=== PATIENT | female | born 1985 | race Caucasian/White ===

== ENCOUNTER 2024-02-12 07:43 | Outpatient (OUT) | payer OTHER, SELFPAY ==
--- NOTE | 2024-02-12 | ECG_ITS ---
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
[2024-02-12 08:15] LABS: Basophils Percent Auto 0.6 % (0.2-2.0); Eosinophils Absolute Auto 0.2 10^3/uL (0.0-0.7); Eosinophils Percent Auto 3.6 % (0.9-7.0); Hematocrit 33.3 % (36.0-48.0); Hemoglobin 11.3 g/dL (12.0-16.0); Immature Granulocytes Abs Auto 0.02 10^3/uL (0.00-0.03); Immature Granulocytes Pct Auto 0.4 % (0.0-0.5); Lymphocytes Absolute Auto 1.4 10^3/uL (1.2-3.8); Lymphocytes Percent Auto 27.5 % (20.5-60.0); Mean Corpuscular HGB Conc 33.9 g/dL (29.9-35.2); Mean Corpuscular Hemoglobin 28.8 pg (26.7-34.0); Mean Corpuscular Volume 84.9 fL (81.0-99.0); Mean Platelet Volume 8.9 fL (9.5-13.5); Monocytes Absolute Auto 0.5 10^3/uL (0.3-0.8); Monocytes Percent Auto 9.1 % (1.7-12.0); Neutrophils Percent Auto 58.8 % (43.0-75.0); Platelet Count 221 10^3/uL (150-450); Red Blood Count 3.92 10^6/uL (4.20-5.40); Red Cell Distribution Width 12.5 % (11.0-15.0); White Blood Count 5.1 10^3/uL (4.0-11.0)
--- NOTE | 2024-02-12 08:25 | US_ITS ---
The [address] [address] Patient Name: MARY THOMPSON MRN: [id number] date: 1985 Sex: F Assigned Patient Location: LAB Current Patient Location: Accession/Order Number: [id number] Exam Date: 02/12/2024 08:40 Report Date: 02/13/2024 05:09 At the request of: NON-STAFF PHYSICIAN Procedure: US extremity nonvascular LT EXAMINATION: US extremity nonvascular LT HISTORY: Soft Tissue Lesion M79.9 COMPARISON: No relevant comparison available. FINDINGS: Percutaneous ultrasound evaluation demonstrates a subtle hypoechoic structure with central echogenic focus within the left hand corresponding to patient's area of discomfort. No appreciable internal blood flow on color Doppler. US/US extremity nonvascular LT IMPRESSION: 1. Nonspecific intramuscular lesion corresponding to patient's area of discomfort. Consider MRI for further evaluation. Electronically authenticated by: HAL DUVAL Date: 02/13/2024 05:09
[2024-02-12 08:26] LABS: Erythrocyte Sedimentation Rate 9 mm/hr (<=20)
[2024-02-12 08:43] LABS: Creatinine Urine Random 105.46 mg/dL (20.00-300.00); Microalbum Creatinine Ratio Ur 12.3 mg/g (0.0-29.9); Microalbumin Urine Random <1.3 mg/dL (<=30.0)
[2024-02-12 09:05] LABS: Alanine Aminotransferase 18 U/L (14-59); Albumin Globulin Ratio 1.1; Albumin Level 3.4 g/dL (3.4-5.0); Alkaline Phosphatase 57 U/L (46-116); Anion Gap 11.8; Aspartate Amino Transferase 13 U/L (15-37); BUN Creatinine Ratio 14.8; Bilirubin Total 0.3 mg/dL (0.2-1.0); C Reactive Protein <0.50 mg/dL (<=0.50); Calcium 8.1 mg/dL (8.5-10.1); Carbon Dioxide 28.9 mmol/L (21.0-32.0); Chloride 105 mmol/L (98-107); Cholesterol 177 mg/dL (<=200); Estimated GFR (African America >60 (>=60); Estimated GFR (Non-African Ame >60 (>=60); Globulin 3.1 g/dL; Glucose 116 mg/dL (74-106); HDL Cholesterol 44 mg/dL (40-60); Potassium 3.7 mmol/L (3.5-5.1); Sodium 142 mmol/L (136-145); TSH W/ REFLEX FT4 1.615 uIU/mL (0.358-3.740); Total Protein 6.5 g/dL (6.4-8.2); Triglycerides 197 mg/dL (<=150); VLDL CHOLESTEROL 39.4 mg/dL
[2024-02-12 09:30] LABS: Estimated Average Glucose 128 mg/dL; Glycohemoglobin A1C 6.1 % (4.5-6.2)
--- NOTE | 2024-02-12 09:54 | RT_ITS ---
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 Findings were considered accurate and reproducible. Both pre- and post-bronchodilator values utilized for spirometry. Spirometry (based on pre-bronchodilator values): -FEV1/FVC: Normal @ 76% -FEV1: Normal @ 92% -FVC: Normal @ 99% -CPR26-43%: Reduced @ 71% -There is a positive bronchodilator resposne in [id number]%, but diagnostic and clinical significance is unclear. Lung volumes by plethysmography (based on pre-bronchodilator values): -RV: Increased @ 137% -TLC: Normal @ 120% Diffusion capacity: -DLCO: Normal @ 112% when corrected for Hb 11.3g/dL Impressions: -Technically normal spirometry, though appears to have a trend towards mild obstruction. No positive bronchodilator response. An elevated RV and TLC suggest air trapping and hyperinflation respectively. The diffusion capacity is normal. Overall study suggests mild underlying obstructive proces. Clinical correlation required. Electronically Signed On 02-17-2024 7:22:09 EDT by Champ Greene
[2024-02-12] MEDS: ALBUTEROL SULFATE 2.5 MG/3 ML VIAL NEB IH (09:59)
== END 2024-02-12 07:44 | disposition home or self-care (01) ==
LOC: LAB 07:47
DX: M54.2 Cervicalgia (principal); E11.9 Type 2 diabetes mellitus without complications; M79.9 Soft tissue disorder, unspecified; Z79.899 Other long term (current) drug therapy; J45.20 Mild intermittent asthma, uncomplicated
CPT/HCPCS: 36415; 76882; 80053; 80061; 82043; 82570; 83036; 84443; 85025; 85652; 86140; 93005; 94060; 94726; 94729; 99406

== ENCOUNTER 2024-03-25 14:34 | Outpatient (OUT) | payer OTHER, SELFPAY ==
--- NOTE | 2024-03-25 14:45 | US_ITS ---
The [address] [address] Patient Name: MARY THOMPSON MRN: [id number] date: 1985 Sex: F Assigned Patient Location: US Current Patient Location: Accession/Order Number: [id number] Exam Date: 03/25/2024 14:45 Report Date: 03/26/2024 05:40 At the request of: NON-STAFF PHYSICIAN Procedure: US pelvis w/ transvaginal EXAMINATION: US pelvis w/ transvaginal HISTORY: Abnormal Uterine Bleeding COMPARISON: No relevant comparison available. TECHNIQUE: Transabdominal and/or transvaginal sonographic examination was performed as indicated by examination type. FINDINGS: UTERUS: Normal size and appearance. Uterus size: 9.0 x 4.0 x 5.1 cm ENDOMETRIUM: Normal homogeneous appearance. IUD within endometrial cavity. Endometrial thickness: 9 mm RIGHT OVARY: Normal size and appearance. Blood flow present within ovary on color Doppler. Ovary size: 1.9 x 2.6 x 1.9 cm LEFT OVARY: Contains a round heterogeneous area 4.5 x 4.0 x 4.4 cm without appreciable internal blood flow. Duplex Doppler demonstrates normal waveform and flow; resistive index 0.4. Ovary size: 6.7 x 4.1 x 4.5 cm CUL-DE-SAC: Unremarkable. No significant free fluid. BLADDER: Unremarkable. OTHER: None. US/US pelvis w/ transvaginal IMPRESSION: 1. IUD within endometrial cavity. Otherwise unremarkable uterus and endometrium. 2. Large heterogeneous 4.5 cm rounded area within left ovary suspected represent complex cysts. A hypovascular mass and an endometrioma cannot be excluded. Follow-up ultrasound evaluation in 6 weeks is recommended to document change/regression. Electronically authenticated by: HAL DUVAL Date: 03/26/2024 05:40
--- NOTE | 2024-03-25 14:45 | MM_ITS ---
Patient Name: MARY THOMPSON MR#: [id number] : 1985 Exam Date: 03/25/2024 Ordering Doctor: NON-STAFF PHYSICIAN RADIOLOGY REPORT PROCEDURE: MM TOMOSYNTHESIS SCREENING BI COMPARISON: None. INDICATIONS: Screening Calculator Name NCI Breast Cancer Risk Assessment Tool 5 Year Breast Cancer Risk 0.50% Lifetime Breast Cancer Risk 9.00% Personal Breast Cancer No Personal Ovarian Cancer No Treatments None Family Cancers Grandmother-maternal with lung cancer at age ~50. LOCATION: [facility] BREAST COMPOSITION: The breasts are heterogeneously dense,which may obscure small masses. FINDINGS: DIAGNOSTIC CATEGORY 1--NEGATIVE. RIGHT BREAST: No significant suspicious finding. LEFT BREAST: No significant suspicious finding. RECOMMENDATIONS: ROUTINE MAMMOGRAM AND CLINICAL EVALUATION IN 12 MONTHS. PLEASE NOTE: A NORMAL MAMMOGRAM DOES NOT EXCLUDE THE POSSIBILITY OF BREAST CANCER. A CLINICALLY SUSPICIOUS PALPABLE LUMP SHOULD BE BIOPSIED. Dictated by: Luis Dc M.D. on 03/26/2024 at 15:01 Approved by: Luis Dc M.D. on 03/26/2024 at 15:05
--- OUTSIDE RECORDS SUMMARY | 2024-03-25 14:50 | XMS_ITS | CCD ---
Author Organization [facility] ion Partnership [facility] Care Team Providers Care Lead Portfolio Manager Name Role Phone HERMILA GUAJARDO Attending Unavailable PELON TOWNSEND Admitting Unavailable MILDRED, MANNIE E Primary Care Unavailable MILDRED MANNIE E Primary Care Unavailable HERMILA GUAJARDO Admitting Unavailable HERMILA GUAJARDO Attending Unavailable ZEN GUILLERMO Attending Unavailable MILDRED, MANNIE E Primary Care Unavailable MILDRED, MANNIE E Primary Care Unavailable CHRIS BARRY Referring Unavailable MILDRED, MANNIE E Primary Care Unavailable MAXIMO Levy Primary Care Provider MD Quique Del Valle Attending Provider [phone] Ms. Mannie Levy Primary Care Unav ailable Timaletas, Stacy He Referring Unavaila gibson Garner, Dr. Moe Victoria Attending Unavail able Pending Provider Unavailable Unavailable Unavailable Unavailable Archana Garcia Primary Care Unavailable Archana Garcia Admitting Unavailable Archana Garcia Attending Unavailable COSMO, ABE Referring Unavailable LEVY, MANNIE E Primary Care Unavailable COSMO, ABE Referring Unavailable LEVY, MANNIE E Primary Care Unavailable MERCEDEZ WARNER M Referring Unavailable ARCHANA GARCIA Primary Care Unavailable ALEJANDRINA WARNERA M Referring Unavailable ARCHANA GARCIA Primary Care Unavailable ARCHANA GARCIA Referring Unavailable RADHA ARCHANA Primary Care Unavailable SELF, SELF Primary Care Unavailable SELF, SELF Referring Unavailable Joanne MEAD Attending Unavailable ALEJANDRINA WARNERA M Referring Unavailable ARCHANA GARCIA Primary Care Unavailable Hugo Darnell Attending Unavailab Hugo Howe Admitting Unavailab Mannie Quiñones Primary Care Unavailable GARCIA, ARCHANA Referring Unavailable GARCIA, ARCHANA Primary Care Unavailable GARCIA, ARCHANA Attending Unavailable GARCIA, ARCHANA Referring Unavailable GARCIA, ARCHANA Primary Care Unavailable GARCIA, ARHCANA Attending Unavailable GARCIA, ARCHANA Referring Unavailable GARCIA, ARCHANA Primary Care Unavailable GARCIA, ARCHANA Referring Unavailable GARCIA, ARCHANA Primary Care Unavailable GARCIA, ARCHANA Attending Unavailable GARCIA, ARCHANA Referring Unavailable GARCIA, ARCHANA Primary Care Unavailable Medications Completed/Discontinued Medications Medication Drug Class(es) Dates Sig (Normalized) Sig (Original) acyclovir 400 mg oral tablet (1 source) Herpesvirus Nucleoside Analog DNA Polymerase Inhibitor, Herpes Simplex Virus Nucleoside Analog DNA Polymerase Inhibitor, Herpes Zoster Virus Nucleoside Analog DNA Polymerase Inhibitor Start: 08-02-2021 End: 06-05-2022 take 1 tablet by mouth every eight hours Acyclovir 400 MG Oral Tablet TAKE 1 TABLET BY MOUTH EVERY 8 HOURS Quantity: 15 Refills: 0 Ordered: 30-Aug-2021 DO Start : 02-Aug-2021 End : 05-Jun-2022 Complete 24 hr buPROPion hydrochloride 300 mg extended release oral tablet (2 sources) Aminoketone Start: 03-18-2022 take 1 tablet by mouth once daily buPROPion HCl ER (XL) 300 MG Oral Tablet Extended Release 24 Hour TAKE 1 TABLET BY MOUTH EVERY DAY Quantity: 30 Refills: 0 Ordered: 16-May-2022 DO Start : 18-Mar-2022 Active Start: 07-06-2021 End: 06-05-2022 take 1 tablet by mouth once daily buPROPion HCl ER (XL) 150 MG Oral Tablet Extended Release 24 Hour take 1 tablet by mouth once daily Quantity: 30 Refills: 0 Ordered: 06-Jul-2021 DO Start : 06-Jul-2021 End : 05-Jun-2022 Complete busPIRone hydrochloride 30 mg oral tablet (1 source) Start: 03-08-2022 take 1 tablet by mouth twice daily busPIRone HCl - 30 MG Oral Tablet TAKE 1 TABLET BY MOUTH TWICE A DAY Quantity: 60 Refills: 0 Ordered: 06-May-2022 DO Start : 08-Mar-2022 Active dicyclomine hydrochloride 20 mg oral tablet (1 source) Anticholinergic Start: 05-09-2022 take 1 tablet by mouth four times daily Dicyclomine HCl - 20 MG Oral Tablet TAKE 1 TABLET BY MOUTH FOUR TIMES A DAY Quantity: 120 Refills: 0 Ordered: 09-May-2022 DO Start : 09-May-2022 Active doxycycline hyclate 100 mg oral tablet (1 source) Tetracycline-class Drug Start: 05-29-2022 take 1 tablet by mouth twice daily Doxycycline Hyclate 100 MG Oral Tablet TAKE 1 TABLET BY MOUTH TWICE A DAY Quantity: 20 Refills: 0 Ordered: 29-May-2022 DO Start : 29-May-2022 Active escitalopram 20 mg oral tablet (1 source) Serotonin Reuptake Inhibitor Start: 04-30-2022 take 1 tablet by mouth once daily Escitalopram Oxalate 20 MG Oral Tablet TAKE 1 TABLET BY MOUTH EVERY DAY Quantity: 30 Refills: 0 Ordered: 28-May-2022 DO Start : 30-Apr-2022 Active ibuprofen 800 mg oral tablet (2 sources) Nonsteroidal Anti-inflammatory Drug Start: 04-11-2022 take 1 tablet by mouth three times daily at mealtime Ibuprofen 800 MG Oral Tablet TAKE 1 TABLET BY MOUTH THREE TIMES A DAY WITH FOOD Quantity: 90 Refills: 0 Ordered: 11-May-2022 DO Start : 11-Apr-2022 Active Start: 07-06-2021 End: 06-05-2022 take 1 tablet by mouth three times daily at mealtime for pain Ibuprofen 600 MG Oral Tablet take 1 tablet by mouth three times a day with food for pain Quantity: 90 Refills: 0 Ordered: 06-Jul-2021 DO Start : 06-Jul-2021 End : 05-Jun-2022 Complete loratadine 10 mg oral tablet (1 source) Start: 05-29-2022 Loratadine 10 MG Oral Tablet Quantity: 30 Refills: 0 Ordered: 29-May-2022 DO Start : 29-May-2022 Active melatonin 5 mg oral tablet (1 source) Start: 03-08-2022 take 2 tablets by mouth at bedtime [facility] Melatonin 5 MG Oral Tablet TAKE 2 TABLETS BY MOUTH AT BEDTIME Quantity: 60 Refills: 0 Ordered: 06-May-2022 DO Start : 08-Mar-2022 Active metFORMIN hydrochloride 500 mg oral tablet (1 source) Biguanide Start: 03-08-2022 take 1 tablet by mouth once daily at dinner metFORMIN HCl - 500 MG Oral Tablet TAKE 1 TABLET BY MOUTH EVERY DAY WITH MORNING AND EVENING MEALS Quantity: 30 Refills: 0 Ordered: 11-May-2022 DO Start : 08-Mar-2022 Active montelukast 10 mg oral tablet (1 source) Leukotriene Receptor Antagonist Start: 01-07-2022 take 1 tablet by mouth once daily Montelukast Sodium 10 MG Oral Tablet TAKE 1 TABLET BY MOUTH EVERY DAY Quantity: 90 Refills: 0 Ordered: 25-Apr-2022 DO Start : 07-Jan-2022 Active mupirocin 0.02 mg/mg topical ointment (1 source) RNA Synthetase Inhibitor Antibacterial Start: 06-05-2021 End: 06-05-2022 Mupirocin 2 % External Ointment apply to affected area three times a day Quantity: 22 Refills: 0 Ordered: 05-Jun-2021 DO Start : 05-Jun-2021 End : 05-Jun-2022 Complete naltrexone hydrochloride 50 mg oral tablet (1 source) Opioid Antagonist Start: 06-02-2022 Naltrexone HCl - 50 MG Oral Tablet Quantity: 30 Refills: 0 Ordered: 02-Jun-2022 DO Start : 02-Jun-2022 Active naproxen 500 mg oral tablet (1 source) Nonsteroidal Anti-inflammatory Drug Start: 08-02-2021 End: 06-05-2022 take 1 tablet by mouth twice daily at mealtime Naproxen 500 MG Oral Tablet take 1 tablet by mouth twice a day with food Quantity: 60 Refills: 0 Ordered: 30-Aug-2021 DO Start : 02-Aug-2021 End : 05-Jun-2022 Complete ondansetron 4 mg disintegrating oral tablet (1 source) Serotonin-3 Receptor Antagonist Start: 01-30-2022 take 1 tablet by mouth twice daily Ondansetron 4 MG Oral Tablet Disintegrating TAKE 1 TABLET BY MOUTH TWICE A DAY. PLACE ON TONGUE AND ALLOW TO DISSOLVE Quantity: 60 Refills: 0 Ordered: 27-Feb-2022 DO Start : 30-Jan-2022 Active pantoprazole 40 mg delayed release oral tablet (1 source) Proton Pump Inhibitor Start: 04-30-2022 take 1 tablet by mouth twice daily Pantoprazole Sodium 40 MG Oral Tablet Delayed Release TAKE 1 TABLET BY MOUTH TWICE A DAY Quantity: 60 Refills: 0 Ordered: 28-May-2022 DO Start : 30-Apr-2022 Active QUEtiapine 200 mg oral tablet (3 sources) Atypical Antipsychotic Start: 05-29-2022 take 1 tablet by mouth once daily in the evening QUEtiapine Fumarate 200 MG Oral Tablet TAKE 1 TABLET BY MOUTH EVERY DAY IN THE EVENING Quantity: 30 Refills: 0 Ordered: 29-May-2022 DO Start : 29-May-2022 Active Start: 05-29-2022 take 1 tablet by manpreet th twice daily QUEtiapine Fumarate 50 MG Oral Tablet TAKE 1 TABLET BY MOUTH TWICE A DAY Quantity: 60 Refills: 0 Ordered: 29-May-2022 DO Start : 29-May-2022 Active Start: 07-06-2021 End: 06-05-2022 take 1 tablet by mouth twice daily QUEtiapine Fumarate 100 MG Oral Tablet take 1 tablet by mouth twice a day Quantity: 30 Refills: 0 Ordered: 06-Jul-2021 DO Start : 06-Jul-2021 End : 05-Jun-2022 Complete sulfamethoxazole 800 mg / trimethoprim 160 mg oral tablet (1 source) Dihydrofolate Reductase Inhibitor Antibacterial, Sulfonamide Antimicrobial Start: 06-05-2021 End: 06-05-2022 take 1 tablet by mouth twice daily Sulfamethoxazole-Trimethoprim 800-160 MG Oral Tablet take 1 tablet by mouth twice a day for 10 days Quantity: 20 Refills: 0 Ordered: 05-Jun-2021 DO Start : 05-Jun-2021 End : 05-Jun-2022 Complete valACYclovir 500 mg oral tablet (1 source) Herpesvirus Nucleoside Analog DNA Polymerase Inhibitor, Herpes Simplex Virus Nucleoside Analog DNA Polymerase Inhibitor, Herpes Zoster Virus Nucleoside Analog DNA Polymerase Inhibitor Start: 09-18-2021 take 1 tablet by mouth once daily valACYclovir HCl - 500 MG Oral Tablet take 1 tablet by mouth once daily Quantity: 30 Refills: 0 Ordered: 18-Sep-2021 DO Start : 18-Sep-2021 Active Problems Active Problems Problem Classification Problem Date Documented Da te Episodic/Chronic Anxiety disorders (2 sources) Generalized anxiety disorder; Translations: [Generalized anxiety disorder] Onset: 4 Chronic Asthma (1 source) Mild intermittent asthma, uncomplicated; Translations: [Mild intermittent asthma, uncomplicated] Onset: 4 Chronic Conditions associated with dizziness or vertigo (1 source) Dizziness; Translations: [Dizziness and giddiness] Episodic Deficiency and other anemia (1 source) Anemia, unspecified; Translations: [Anemia, unspecified] Onset: 4 Episodic Diabetes mellitus without complication (1 source) Type 2 diabetes mellitus without complications; Translations: [Type 2 diabetes mellitus without complications] Onset: 3 Chronic Esophageal disorders (1 source) Gastro-esophageal reflux disease without esophagitis; Translations: [Gastro-esophageal reflux disease without esophagitis] Onset: 3 Chronic Miscellaneous mental health disorders (1 source) Mental disorder; Translations: [Unspecified psychosis] Chronic Other connective tissue disease (1 source) H/O: arthritis; Translations: [Personal history of arthritis] Episodic Other connective tissue disease (1 source) Soft tissue disorder, unspecified; Translations: [Soft tissue disorder, unspecified] Onset: 4 Episodic Other ear and sense organ disorders (1 source) Bilateral hearing loss; Translations: [Conductive hearing loss, unilateral] Chronic Other female genital disorders (1 source) Abnormal uterine and vaginal bleeding, unspecified; Translations: [Abnormal uterine and vaginal bleeding, unspecified] Onset: 4 Chronic Other gastrointestinal disorders (1 source) History of gastroesophageal reflux disease; Translations: [Personal history of other diseases of digestive system] Episodic Other lower respiratory disease (1 source) H/O: asthma; Translations: [Personal history of other diseases of respiratory system] Episodic Other lower respiratory disease (1 source) H/O: bronchitis; Translations: [Personal history of other diseases of respiratory system] Episodic Other nervous system disorders (1 source) H/O: glaucoma; Translations: [Personal history of other disorders of nervous system and sense organs] Episodic Other nutritional; endocrine; and metabolic disorders (1 source) H/O: diabetes mellitus; Translations: [Personal history of other endocrine, metabolic, and immunity disorders] Episodic Other screening for suspected conditions (not mental disorders or infectious disease) (1 source) Encounter for screening mammogram for malignant neoplasm of breast; Translations: [Encounter for screening mammogram for malignant neoplasm of breast] Onset: 4 Episodic Other upper respiratory disease (1 source) Dysphonia; Translations: [Dysphonia] Onset: 4 Episodic Otitis media and related conditions (1 source) Otosclerosis; Translations: [Otosclerosis, unspecified] Episodic Residual codes; unclassified (1 source) History of heartburn; Translations: [Personal history of other diseases of digestive system] Episodic Residual codes; unclassified (1 source) H/O: respiratory disease; Translations: [Other specified personal history presenting hazards to health] Episodic Residual codes; unclassified (2 sources) High risk heterosexual behavior; Translations: [High risk heterosexual behavior] Onset: 4 Episodic Screening and history of mental health and substance abuse codes (1 source) H/O: depression; Translations: [Personal history of other mental disorders] Episodic Substance-related disorders (8 sources) Cocaine dependence, uncomplicated; Translations: [Cocaine abuse, uncomplicated] Onset: 3 Chronic Unclassified (1 source) Annual Exam Onset: 4 Unclassified (1 source) Low back pain, unspecified; Translations: [Low back pain, unspecified] Onset: 4 Past or Other Problems Problem Classification Problem Date Documented Date Episodic/Chronic Immunizations and screening for infectious disease (2 sources) Encounter for screening for infections with a predominantly sexual mode of transmission; Translations: [Encounter for screening for infections with a predominantly sexual mode of transmission] Onset: 12-02-2023 Episodic Other connective tissue disease (2 sources) Pain in left finger(s); Translations: [Pain in left finger(s)] Onset: 12-15-2023 Episodic Spondylosis; intervertebral disc disorders; other back problems (2 sources) Cervicalgia; Translations: [Cervicalgia] Onset: 12-15-2023 Episodic Results Test Name Value Interpretation Reference Range Facility Cytologyon 02-24-2024 Cytology Normal [facility] Comment on above: Result Comment: [facility] [address] [place] [address] Gynecologic Cytology Consultation Patient Name:MARY PANIAGUA:1985 (Age: 38)Gender:FTaken:4Reported:4Physician(s):Mercedez Warner APRN-CNPDarshan To: Rec. #:[id number]: #[id number] Final Cytologic Interpretation ThinPrep Pap Test (Cervical): Satisfactory for evaluation. A transformation zone component is present. NEGATIVE FOR INTRAEPITHELIAL LESION OR MALIGNANCY. jja/03/05/2024 Interpretation performed at [facility], [address] [place] [id number], License number: [id number]. Electronically Signed Out By HODA Rankin(ASCP) Date of Last Menstrual Period: 02/10/24 Other Clinical Conditions: Z01.419 Rodent Control Worker exam wo/abn findings IUD Source of Specimen ThinPrep Pap Test (Cervical) Thin Prep Pap (DISTRICT ATTORNEY) Fee Code(s): G0145 The Pap test is a screening test with an inherent, but low, probability of error. The Pap test is primarily effective for the diagnosis and prevention of squamous cell carcinoma. Regular screening is critical for prevention. ThinPrep liquid-based slides, which meet the Block Machine Operator criteria for automated screening, have been screened by the ThinPrep Imaging System (as of 05/11/07) along with an additional manual rescreening by a occupational health and safety officer and, if indicated, by a pathologist. HIGH RISK HPV W/GENOon 02-23 HPV 31+33+35+39+45+51+52+56 +58+59+66+68 DNA FALLON+probe Ql (Cvx) HPV SPECIMEN TYPE ThinPrep HPV 16 Negative (qualifier value) HPV 18 Negative (qualifier value) OTHER HIGH RISK HPV Negative (qualifier value) HPV types 31,33,35,39,45,52,56,5 8,59,66 and 68 DNA were undetectable. Normal [facility] Comment on above: Performed By: #### 7 1431-1 #### [facility] ([id number]) [address] [place] [address], [place] [address] [facility] ([id number]) [address] [place] [address], [address] [place] [address] XR FINGER THUMB LT MIN 2 VWS on 12-16-2023 XR FINGER THUMB LT MIN 2 VWS XR FINGER THUMB LT MIN 2 VWS Clinical history: Thumb pain Left thumb: 12/15/2023 COMPARISON: None FINDINGS: 3 views of the first digit were obtained. No focal osseous abnormality is evident. Articular surfaces are intact. Bone density is within normal limits. IMPRESSION: No focal osseous abnormality evident radiographically. Finalized by Salas Lyons MD on 12/16/2023 6:38 AM Normal [facility] XR SPINE CERVICAL 3 VWS OR L ESSon 12-16-2023 XR SPINE CERVICAL 3 VWS OR LESS XR SPINE CERVICAL 3 VWS OR LESS Clinical history: Neck pain Cervical spine: 12/15/2023 COMPARISON: None FINDINGS: 4 views of the cervical spine were obtained. There is loss of intervertebral disc height greatest at C5-C6 and C6-C7. Mild facet hypertrophic changes are present. There is loss of normal cervical lordosis. Prevertebral contours are within normal limits. IMPRESSION: Cervical spine degenerative findings with no focal or acute abnormality evident radiographically. Finalized by Salas Lyons MD on 12/16/2023 6:39 AM Normal [facility] ACUTE HEPATITIS PANELon 11-24 ANTI HCV W/PCR REFLX Non-Reactive Normal NRCT Pr [facility] Comment on above: Result Comment: If recent infection suspected, recommend repeat testing (>2 months). Thgtgz-ps-ixcdiu ratio is <0.80. Performed By: #### [place] HP, 14530-3, 83561-1 #### [facility] ([id number]) [address], [address] [place] [address] HEPATITIS A IGM Non-Reactive Normal NRCT [facility] Comment on above: Performed By: #### [place] HP, 27697-4, 79800-6 #### [facility] ([id number]) [address], [address] [place] [address] HEPATITIS B CORE IGM Negative Normal NEG [facility] Comment on above: Performed By: #### A HP, 74927-0, 95961-0 #### [facility] ([id number]) [address], [address] [place] [address] HEPATITIS B SURF AG Negative Normal NEG [facility] Comment on above: Performed By: #### A HP, 52649-2, 22494-5 #### [facility] ([id number]) [address] [place] [address], [address] [place] [address] HIV 1+2 Ab+HIV1 p24 Ag IA Ql on 12-15-2023 HIV 1 and 2 Ab/Ag Screen Non-Reactive Normal NRCT [facility] Comment on above: Result Comment: This information has been disclosed to you from confidential records protected from disclosure by state law. You shall make no further disclosure of this information without the specific, written and informed release of the individual to whom it pertains, or as otherwise permitted by state law. A general authorization for the release of medical or other information is not sufficient for the purpose of the release of HIV test results or diagnoses. Performed By: #### A , 78515-5, 75982-0 #### [facility] ([id number]) [address] [place] [address], [address] [address] T. pallidum IgG+IgM IA Ql (S )on 12-15-2023 Syphilis Total <0.2 Normal 0.0-0.8 [facility] Comment on above: Result Comment: NON REACTIVE No serologic evidence of infection to Treponema pallidum (syphilis). Repeat testing may be considered in patients with suspected acute or primary syphilis in 2 to 4 weeks. Performed By: #### A , 05253-0, 42298-4 #### [facility] ([id number]) [address] [place] [address], [address] [address] CHLAMYDIA/GC BY PCRon 2023 CHLAMYDIA/GC BY PCR SPECIMEN SOURCE CERVIX CHLAMYDIA DNA(PCR) Negative (qualifier value) Chlamydia trachomatis not detected by nucleic acid amplification. This does not exclude the possibility of infection because results are dependent on adequate specimen collection. GONORRHOEAE DNA(PCR) Negative (qualifier value) Neisseria gonorrhoeae not detected by nucleic acid amplification. This does not exclude the possibility of infection because results are dependent on adequate specimen collection. Normal [facility] Comment on above: Performed By: #### C GS #### [facility] ([id number]) [address] [place] [address], [address] [place] [address] VAGINITIS PANEL PCRon 2023 VAGINITIS PANEL PCR BACT. VAGINOSIS DNA Not detected (qualifier value) Qualitative results are reported based on detection and quantitation of targeted organism markers which include: Lactobacillus spp. (L. crispatus and L. jensenii), Gardnerella vaginalis, Atopobium vaginae, Bacterial Vaginosis Associated Bacteria-2 (BVAB-2) and Megasphaera-1 AMADOR SPECIES DNA Not detected (qualifier value) Amador species not detected include: C. albicans, C. tropicalis, C. parapsilosis or C. dubliniensis AMADOR KRUSEI DNA Not detected (qualifier value) No Amador krusei detected AMADOR GLABRATA DNA Not detected (qualifier value) No Amador glabrata detected TRICHOMONAS VAG DNA Not detected (qualifier value) No Trichomonas vaginalis detected NOTE BD MAX Vaginal Panel has not been evaluated for patients under 18 years old. Results for these patients should be reviewed and assessed in accordance with clinical presentation to determine patient diagnosis. Normal [facility] Comment on above: Performed By: #### V PPCR #### [facility] ([id number]) [address] [place] [address], [address] [place] [address] Chlamydia/GC,DNA Ampon 10-13 Chlamydia Probe Negative Normal NEG [facility] Comment on above: Result Comment: CHLA MYDIA TRACHOMATIS DNA not detected by nucleic acid amplification. This test is intended for medical purposes only and is not valid for the evaluation of suspected sexual abuse or for other forensic purposes. In certain contexts, culture may be required to meet applicable laws and regulations for diagnosis of C. trachomatis and N. gonorrhoeae infections. Per 2014 CDC recommendations, this test does not include confirmation of positive results by an alternative nucleic acid target. Performed By: #### G LYHGB, PHEP, SWCGP, TREP, HIVCMB #### [address] [address] Security System Technician: Pablo Pelaez MD #### CP, CBC, HCG #### [address] [place] [id number] Security System Technician: Manuel Mayorga MD Gonorrhea Probe Negative Normal NEG [facility] Comment on above: Result Comment: NEIS SERIA GONORRHOEAE DNA not detected by nucleic acid amplification. This test is intended for medical purposes only and is not valid for the evaluation of suspected sexual abuse or for other forensic purposes. In certain contexts, culture may be required to meet applicable laws and regulations for diagnosis of C. trachomatis and N. gonorrhoeae infections. Per 2014 CDC recommendations, this test does not include confirmation of positive results by an alternative nucleic acid target. Performed By: #### G LYHGB, PHEP, SWCGP, TREP, HIVCMB #### [address] [id number] Security System Technician: Pablo Pelaez MD #### CP, CBC, HCG #### [address] [place] [id number] Security System Technician: Manuel Mayorga MD CBCon 10-10-2023 Erythrocyte distribution width (RBC) [Ratio] 13.6 % Normal 11.8-14.4 [facility] Comment on above: Performed By: #### G LYHGB, PHEP, SWCGP, TREP, HIVCMB #### [address] [id number] Security System Technician: Pablo Pelaez MD #### CP, CBC, HCG #### [address] [place] [id number] Security System Technician: Manuel Mayorga MD Hematocrit (Bld) [Volume fraction] 42.4 % Normal 36.3-47.1 [facility] Comment on above: Performed By: #### G LYHGB, PHEP, SWCGP, TREP, HIVCMB #### [address] [id number] Security System Technician: Pablo Pelaez MD #### CP, CBC, HCG #### [address] [place] [address] Security System Technician: Manuel Mayorga MD Hemoglobin (Bld) [Mass/Vol] 13.7 g/dL Normal 11.9-15.1 [facility] Comment on above: Performed By: #### G LYHGB, PHEP, SWCGP, TREP, HIVCMB #### [address] [address] Security System Technician: Pablo Pelaez MD #### CP, CBC, HCG #### [address] [place] [address] Security System Technician: Manuel Mayorga MD MCH (RBC) [Entitic mass] 28.5 pg Normal 25.2-33.5 [facility] Comment on above: Performed By: #### G LYHGB, PHEP, SWCGP, TREP, HIVCMB #### [address] [address] Security System Technician: Pablo Pelaez MD #### CP, CBC, HCG #### [address] [place] [address] Security System Technician: Manuel Mayorga MD MCHC (RBC) [Mass/Vol] 32.3 g/dL Normal 28.4-34.8 [facility] Comment on above: Performed By: #### G LYHGB, PHEP, SWCGP, TREP, HIVCMB #### [address] [id number] Security System Technician: Pablo Pelaez MD #### CP, CBC, HCG #### [address] [place] [address] Security System Technician: Manuel Mayorga MD MCV (RBC) [Entitic vol] 88.3 fL Normal 82.6-102.9 [facility] Comment on above: Performed By: #### G LYHGB, PHEP, SWCGP, TREP, HIVCMB #### [address] [address] Security System Technician: Pablo Pelaez MD #### CP, CBC, HCG #### [address] [place], [place] [id number] Security System Technician: Manuel Mayorga MD NRBC Automated 0.0 per 100 WBC Normal 0.0 [facility] Comment on above: Performed By: #### G LYHGB, PHEP, SWCGP, TREP, HIVCMB #### [address] [address] Security System Technician: Pablo Pelaez MD #### CP, CBC, HCG #### [address] [place] [id number] Security System Technician: Manuel Mayorga MD Platelet mean volume (Bld) [Entitic vol] 9.7 fL Normal 8.1-13.5 [facility] Comment on above: Performed By: #### G LYHGB, PHEP, SWCGP, TREP, HIVCMB #### [address] [address] Security System Technician: Pablo Pelaez MD #### CP, CBC, HCG #### [address] [place] [id number] Security System Technician: Maunel Mayorga MD Platelets (Bld) [#/Vol] 295 10*3/uL Normal 138-453 [facility] Comment on above: Performed By: #### G LYHGB, PHEP, SWCGP, TREP, HIVCMB #### [address] [address] Security System Technician: Pablo Pelaez MD #### CP, CBC, HCG #### [address] [place], [place] [id number] Security System Technician: Manuel Mayorga MD RBC (Bld) [#/Vol] 4.80 10*6/uL Normal 3.95-5.11 [facility] Comment on above: Performed By: #### G LYHGB, PHEP, SWCGP, TREP, HIVCMB #### [id number] [place] [address] Security System Technician: Pablo Pelaez MD #### CP, CBC, HCG #### [facility] [address] [place] [address] Security System Technician: Manuel Mayorga MD WBC (Bld) [#/Vol] 5.2 10*3/uL Normal 3.5-11.3 [facility] Comment on above: Performed By: #### G LYHGB, PHEP, SWCGP, TREP, HIVCMB #### [address] [address] Security System Technician: Pablo Pelaez MD #### CP, CBC, HCG #### [facility] [address] [place] [address] [place] [address] Security System Technician: Manuel Mayorga MD Comp Metabolic Profon 2023 Bilirubin [Mass/Vol] mg/dL Low 0.3-1.2 [facility] Comment on above: Performed By: #### G LYHGB, PHEP, SWCGP, TREP, HIVCMB #### [id number] [place] [address] Security System Technician: Pablo Pelaez MD #### CP, CBC, HCG #### [facility] [address] [place] [address] [place] [address] Security System Technician: Manuel Mayorga MD Albumin [Mass/Vol] 4.1 g/dL Normal 3.5-5.2 [facility] Comment on above: Performed By: #### G LYHGB, PHEP, SWCGP, TREP, HIVCMB #### [address] [place] [address] Security System Technician: Pablo Pelaez MD #### CP, CBC, HCG #### [address] [place], [place] [id number] Security System Technician: Manuel Mayorga MD Albumin/Glob Ratio 1.6 Normal 1.0-2.5 [facility] Comment on above: Performed By: #### G LYHGB, PHEP, SWCGP, TREP, HIVCMB #### [address] [address] Security System Technician: Pablo Pelaez MD #### CP, CBC, HCG #### [address] [place], [place] 9863983 Security System Technician: Manuel Mayorga MD Alkaline Phos 86 U/L Normal 35-104 [facility] Comment on above: Performed By: #### G LYHGB, PHEP, SWCGP, TREP, HIVCMB #### [address] [address] Security System Technician: Pablo Pelaez MD #### CP, CBC, HCG #### [address] [place], [place] [id number] Security System Technician: Manuel Mayorga MD ALT [Catalytic activity/Vol] 16 U/L Normal 5-33 [facility] Comment on above: Performed By: #### G LYHGB, PHEP, SWCGP, TREP, HIVCMB #### [address] [address] Security System Technician: Pablo Pelaez MD #### CP, CBC, HCG #### [address] [place], [place] 0362483 Security System Technician: Manuel Mayorga MD Anion gap [Moles/Vol] 9 mmol/L Normal 9-17 [facility] Comment on above: Performed By: #### G LYHGB, PHEP, SWCGP, TREP, HIVCMB #### [address] [address] Security System Technician: Pablo Pelaez MD #### CP, CBC, HCG #### [address] [place], [place] 6184383 Security System Technician: Manuel Mayorga MD AST [Catalytic activity/Vol] 11 U/L Normal <32 [facility] Comment on above: Performed By: #### G LYHGB, PHEP, SWCGP, TREP, HIVCMB #### [address] [address] Security System Technician: Pablo Pelaez MD #### CP, CBC, HCG #### [address] [place] [address] Security System Technician: Manuel Mayorga MD BUN/CRE Ratio 13 Normal 9-20 [facility] Comment on above: Performed By: #### G LYHGB, PHEP, SWCGP, TREP, HIVCMB #### [address] [address] Security System Technician: Pablo Pelaez MD #### CP, CBC, HCG #### [address] [place], [place] 8591383 Security System Technician: Manuel Mayorga MD Calcium [Mass/Vol] 8.9 mg/dL Normal 8.6-10.4 [facility] Comment on above: Performed By: #### G LYHGB, PHEP, SWCGP, TREP, HIVCMB #### [address] [phone] Security System Technician: aPblo Pelaez MD #### CP, CBC, HCG #### [address] [place], [place] 7649183 Security System Technician: Manuel Mayorga MD Chloride [Moles/Vol] 105 mmol/L Normal 98-107 [facility] Comment on above: Performed By: #### G LYHGB, PHEP, SWCGP, TREP, HIVCMB #### [address] [address] Security System Technician: Pablo Pelaez MD #### CP, CBC, HCG #### [facility] [address] [place] [address] Dr. [place], [place] [phone] Security System Technician: Manuel Mayorga MD CO2 [Moles/Vol] 27 mmol/L Normal 20-31 [facility] Comment on above: Performed By: #### G LYHGB, PHEP, SWCGP, TREP, HIVCMB #### [address] [address] Security System Technician: Pablo Pelaez MD #### CP, CBC, HCG #### [facility] [address] [place] [address] [place], [place] [phone] Security System Technician: Manuel Mayorga MD Creatinine [Mass/Vol] 0.8 mg/dL Normal 0.5-0.9 [facility] Comment on above: Performed By: #### G LYHGB, PHEP, SWCGP, TREP, HIVCMB #### [address] [address] Security System Technician: Pablo Pelaez MD #### CP, CBC, HCG #### [facility] [address] [place] [address] Security System Technician: Manuel Mayorga MD GFR/1.73 sq M.predicted among non-blacks MDRD (S/P/Bld) [Vol rate/Area] mL/min/{1.73_m2} Normal >60 [facility] Comment on above: Result Comment: These results are not intended for use in patients <18 years of age. eGFR results are calculated without a race factor using the 2020 CKD-EPI equation. Careful clinical correlation is recommended, particularly when comparing to results calculated using previous equations. The CKD-EPI equation is less accurate in patients with extremes of muscle mass, extra-renal metabolism of creatine, excessive creatine ingestion, or following therapy that affects renal tubular secretion. Performed By: #### G LYHGB, PHEP, SWCGP, TREP, HIVCMB #### [address] [address] Security System Technician: Pablo Pelaez MD #### CP, CBC, HCG #### [address] [place] [address] Security System Technician: Manuel Mayorga MD Glucose [Mass/Vol] 113 mg/dL High 70-99 [facility] Comment on above: Performed By: #### G LYHGB, PHEP, SWCGP, TREP, HIVCMB #### [address] [address] Security System Technician: Pablo Pelaez MD #### CP, CBC, HCG #### [address] [place] [phone] Security System Technician: Manuel Mayorga MD Potassium [Moles/Vol] 3.9 mmol/L Normal 3.7-5.3 [facility] Comment on above: Performed By: #### G LYHGB, PHEP, SWCGP, TREP, HIVCMB #### [address] [address] Security System Technician: Pablo Pelaez MD #### CP, CBC, HCG #### [facility] [address] [place] [address] Dr. [place] [phone] Security System Technician: Manuel Mayorga MD Protein [Mass/Vol] 6.6 g/dL Normal 6.4-8.3 [facility] Comment on above: Performed By: #### G LYHGB, PHEP, SWCGP, TREP, HIVCMB #### [facility] [address] [place] [address] Security System Technician: Pablo Pelaez MD #### CP, CBC, HCG #### [facility] [address] [place], [place] 8392983 Security System Technician: Manuel Mayorga MD Sodium [Moles/Vol] 141 mmol/L Normal 135-144 [facility] Comment on above: Performed By: #### G LYHGB, PHEP, SWCGP, TREP, HIVCMB #### [facility] [address] [place] [address] Security System Technician: Pablo Pelaez MD #### CP, CBC, HCG #### [address] [place] [address] Security System Technician: Manuel Mayorga MD Urea nitrogen [Mass/Vol] 10 mg/dL Normal 6-20 [facility] Comment on above: Performed By: #### G LYHGB, PHEP, SWCGP, TREP, HIVCMB #### [address] [place] [address] Security System Technician: Pablo Pelaez MD #### CP, CBC, HCG #### [address] [place] [address] Security System Technician: Manuel Mayorga MD HCG Screen, Bloodon 10-10-19 24 HCG Screen, Blood Negative Normal [facility] Comment on above: Result Comment: Spec imens with hCG levels near the threshold of the test (25 mIU/mL) may give a negative or indeterminate result. In such cases, another test should be performed with a new specimen in 48-72 hours. If early is suspected clinically in this setting, correlation with quantitative serum b-hCG level is suggested. [facility] has confirmed the use of plasma for this test. This has not been cleared or approved by the U.S. Food and Drug Administration. The FDA has determined that such clearance is not necessary. Performed By: #### G LYHGB, PHEP, SWCGP, TREP, HIVCMB #### [facility] [place] [address] Security System Technician: Pablo Pelaez MD #### CP, CBC, HCG #### [address] [place], [place] [phone] Security System Technician: Manuel Mayorga MD HIV Ag/Abon 10-10-2023 HIV Ag/Ab Non-Reactive Normal NR [facility] Comment on above: Result Comment: No l aboratory evidence of HIV infection. If acute HIV infection is suspected, consider testing for HIV-1 RNA. Performed By: #### G LYHGB, PHEP, SWCGP, TREP, HIVCMB #### [facility] [place] [address] Security System Technician: Pablo Pelaez MD #### CP, CBC, HCG #### [address] [place] [address] Security System Technician: Manuel Mayorga MD Hemoglobin A1Con 10-10-2023 Glucose [Mass/Vol] 123 mg/dL Normal [facility] Comment on above: Result Comment: The ADA and AACC recommend providing the estimated average glucose result to permit better patient understanding of their HBA1c result. Performed By: #### G LYHGB, PHEP, SWCGP, TREP, HIVCMB #### [facility] [place] [address] Security System Technician: Pablo Pelaez MD #### CP, CBC, HCG #### [address] [place] [address] Security System Technician: Manuel Mayorga MD HbA1c (Bld) [Mass fraction] 5.9 % Normal 4.0-6.0 [facility] Comment on above: Performed By: #### G LYHGB, PHEP, SWCGP, TREP, HIVCMB #### [facility] [place] [address] Security System Technician: Pablo Pelaez MD #### CP, CBC, HCG #### [address] [place], [place] 7854083 Security System Technician: Manuel Mayorga MD Hepatitis Acute [facility] 10-10 Hep A Ab,IgM Non-Reactive Normal [facility] Comment on above: Performed By: #### G LYHGB, PHEP, SWCGP, TREP, HIVCMB #### [address] [address] Security System Technician: Pablo Pelaez MD #### CP, CBC, HCG #### [address] [place], [place] 2195983 Security System Technician: Manuel Mayorga MD Hep B Core Ab,IgM Non-Reactive Normal [facility] Comment on above: Performed By: #### G LYHGB, PHEP, SWCGP, TREP, HIVCMB #### [address] [address] Security System Technician: Pablo Pelaez MD #### CP, CBC, HCG #### [address] [place], [place] 7187183 Security System Technician: Manuel Mayorga MD Hep B Surf Ag Non-Reactive Normal [facility] Comment on above: Performed By: #### G LYHGB, PHEP, SWCGP, TREP, HIVCMB #### [address] [address] Security System Technician: Pablo Pelaez MD #### CP, CBC, HCG #### [address] [place], [place] 8273583 Security System Technician: Manuel Mayorga MD Hep C Ab Non-Reactive Normal [facility] Comment on above: Result Comment: The hepatitis C procedure used in our laboratory is a Chemiluminescent test specific for three recombinant HCV antigens. A negative anti-HCV result indicates that the antibodies to hepatitis C virus are not present at this time. Individuals with reactive anti-HCV should be considered infected and infectious until proven otherwise. Confirmation of all equivocal or reactive results is recommended by ordering HCV RNA by PCR. Performed By: #### G LYHGB, PHEP, SWCGP, TREP, HIVCMB #### [address] [place] [address] Security System Technician: Pablo Pelaez MD #### CP, CBC, HCG #### [address] [place] [address] Security System Technician: Manuel Mayorga MD T.pallidum Ab Screenon 10-10 T.pallidum Ab Screen Non-Reactive Normal NR [facility] Comment on above: Result Comment: T. pallidum antibodies are not detected. There is no serological evidence of infection with T. pallidum (early primary syphilis cannot be excluded). Retest in 2-4 weeks if syphilis is clinically suspect. Performed By: #### G LYHGB, PHEP, SWCGP, TREP, HIVCMB #### [address] [place] [address] Security System Technician: Pablo Pelaez MD #### CP, CBC, HCG #### [address] [place] [address] Security System Technician: Manuel Mayorga MD Trichomonas/Wet Prepon 10-10 Trichomonas/Wet Prep Specimen Descriptio n .VAGINAL SPECIMEN Direct Exam NO YEAST OBSERVED NO TRICHOMONAS SEEN CLUE CELLS SEEN Report Status FINAL 10/10/2023 Abnormal [facility] Comment on above: Performed By: #### W P #### [address] [place] [address] Security System Technician: Manuel Mayorga MD Coding Summaryon 11-14-2022 Coding Summary [employer] 64 PprvurjpXTh8uNf+PGhlYW Q+NX6GATCdR03fpOBiqW8F C7mNHQ9UUWKCDDQGHL9DME 2cqNE5KTwaG8VlpsQb IfiwlJKkOH95NVv4TUC4mU meGXgltQ4khBPsH9v5LkWc PH42pJ03XBdeHVUhHeV0De ZpbjsgbWFy S7ppGuIngUHjTzn+PHRhYm xlIHdpZHRoPScxMDAlJyBz eBtjQP8cXx6nVJEbMDMrqA xhcHNlOiBj d1enGWYcCCxaQR5glQteZ5 PvlBM6BDTzm1p1Yx83gCB+ JTAbMTX0bGwpRZwrt424Sy Fup5hwPVG3 rVVcIQjzPDZ1W85kr3W8QY CpNDJhUUS4nIH9xG5mcYaw tszdL4TlkHIfYtI3TYB0eQ KycZ0kkNmv psvleR3rPml+B68XKX0WTZ NHTU8OGye8K4NlMplxyLG+ WB89KTLfKC37vPLokBJfg7 oroJn0QlGx JMPfQJK2yDwuJJywe7EcGP VoN79npMUem6F8QTHvaPcw bDSmOgMfjNZ5sW5gRAzwwo fnf2pgsmox Xusns9wplz65iB89X29gNR mdZLJhIDU4HQNoCESxyXue ic1kuM2kSq7+BQkin8hjl3 ktxGk7UtGi HFTgrdDbzLhcWBP4a3KlFf 54W6DncRxmu0LeWuk4lv49 xOZzw6U3hCC6ZOsgNBImqB 2kHPfbOaH9 ZOYySiKtrI19iPFkCQyqKi 4ciPtunPpaZI3zSVXasuey PWEyoM5dKDHmeWGbkClnGP 4wNTBpbjtm x627WrHcBXZ9MPXpmMFsX8 LklE1hWaQjNECuLMIeW8Oj yVGwLQlqP813AFseJgJ6NN UadsGrV3Oi JVMlfUecPyG8z6C1Lh0Wa7 KqwwrxFNH0NSqxWWOlZdRv PcQbDrA8L4GyKkf1BCHsvA vtFE3sO0Gg ZKQqossukinaeKH9LPQmWK SssG42vLSkICozJt3gy3O4 i754RRJtCSLetX32Pf2yjQ ogMTBwdCBU oD1ukgsoc7vtuqheGySwTL VsQTr7CIa8YPNieNohSvDc YZN4JeL0XAB7iGKgtG9paH dokziqtD6g Oyc+H94fzX9vSXU8KWT4va rdMMVtoaXaMY28QP09F8Jg PjwvdGFibGU+PGRpdiBzdH dpLU5wKrWp x0twy4KcILiqQ7UlFCSoZH hzKyu6UIAdPQT4vIW2tL3q FZUmWVdcl6Z1zUE2K8Nvzp Umow9ju0zw SMYbUAhnQ49gxNMek6O5QW NkhUZ0DEXpsSsfUoVabL21 Oyc+EGYrbXrjb3ViIlwaz9 wuj7lhpVn1 GiGjCFUjkhShwOedNPO3e3 TxIb29C83wBXlrYGZmMWGw OLGdMXEgsXzpfn7jkY9aDi 8+PGNvbCB3 oMB9yN3yZKOaHsR2HEqlS7 06CqOmtWZyAtlyt4ttg1xt kXx5NhItFYPlnlHsyVzpPE P6j6DdHu51 A14gDLgpMRNzQXPdMYSaHW ZmiIpyre8deY6yQx6+PC9j o7mjoz65sU64tJN+PHRkIH X1uYmhPKek MAKkbG9kTYwfIyL8AQYlNv NbfN08dYUyYLpqGa5bjJod tFseLL5kQOQpgflxl697Af Jho5xoABKi tQKwRZwhIIY8F74zr4X7XA RcAFGxKOS9wRJ4tC1xrOfy bjogbGVmdDsgdmVydGljYW ekMThtB448 IHRvcDsnPlBhdGllbnQgTm WcMIi3A2UgQnd0CMVytIkx WM7pyDYvAHzmWc4acYkjzE yqXK5dYUPm zrnsx269FbJvw9umKQNaxJ ByRPvpFIR6J07yg7W4LLKo KNYwCFS7sHB0eJ3gdEltuz ogbGVmdDsg npKmdIahKEgjJZczO151GT RvcDsnPkJpcnRoIERhdGU6 WL86MW52tWShv8B6tIM8Q3 BhZGRpbmct nzirrZX8AHSpMERuhQ76Oi 3usRhsZh6mXYBlCVN8OBZa oDXsM3BbrA4cRzXyMXXiNU JyV1ObwSGc PWztJ515VCrrMrE0URLqzk YtL0WtYWWfyKnwBvS0z4A3 Pt5GK2T8CX01QS32jLTbp8 Q8pMN3H5Co OYLbzukpdjpekLZ8FUQfOC WvqA35Vx2epPlyWb8gNSJb VIX9MTOhzEDnT0SjbI2vNq AjMDAwMDAw R2TbkXUtEIfjU326TMhdCd Z3JNDvkaMfO5KgVGSxgJdi CmW1z1J6Xz7QQKm6DL48FC 59jWIfz7I2 eVV6E1GvCOQjkrrdoexhdB V1ZUFeDWFggS53Ja6gzAtp Zu0hQYVdOKK6RHDlnTMvK6 ArrX1kAxWa TSIrSHUlK0VjaIJtWUxoJ0 58QNdmGwA4SVStrhKrM4To JKNmaJsjZtS6z8X2Fj7YMQ EtTQ84EDS4 dKD7RY90XG13W3YoUmdpwL FibGU+PHRhYmxlIHdpZHRo XPpqLRKpZzTmxNtwSM6aGk 9yZGVyLWNv oHcxrIHoRkZnu7mcVMYvLB xpSB0rfYfxT5QllZE4XPPd o0p7Wv58J03zS4OdsVY+PG LcrEX2pPW8 iA6wTbLzDzW4TSghM965Iy UxrHWnItqdn8xvp8mqiUi1 IrT1ZIKmjmInoOfgMJB8s0 LmWi35H29u IHdpZHRoPSIxNSUiIHZhbG asfn8yvM3dGp9+PGNvbCB3 bTX4yO9fIoPmTmK8IYinM4 49InRvcCIv Nfchb5lle5zrmWy3IjXyEH AlybHygFbaIJL6y2FpUj46 X3XeoPtiy2AoLkg5jm76qI Woc9Y7bTR1 A5RkHRMeghuvvADowNmeVA 1kDNRepcttPADqaH5wQPNp G8o9WwLoXnS3HQfdJ8Rgyg G5AFVpaHHa TYfmSIM9L63xe9L1BUGgLB BvNHS0iRO4gK0rmHcaessz bGVmdDsgdmVydGljYWwtYW koV007QDVh rLydGKErkD4mINLqyYXymR zxUP6dVBRsxsnnFcfYKpUC EH0oWIQZI5yKQFJJQG99LD 29gRSuy0G7 nKS5C9MkQCRhlymhucgpmT X4OEOaUAPvwF73fTSiCZfv Is6cx7P7x749MDBeOHFubR 11Hp9bhNim PNBggRREuU5qmsrwm0jrdv lpVkXjCPTcLMo9HMr4MEVv xMrpMbLyMPO9DnI5GDJ9cI DpfV7rrWyj buvitX0sKzw+MDcvMTIvMT j9IAwvwEP+AHAhNCX2kPhb XRbvMPFybX0mXKZfY2i9Fn RkXkZ8QYpq S2WsXMQoewfqSw28xW4qOv WjIxH1UPhwL6WjjcC0PQFp eBGfRIgwIVW3D83fs2T7PN MwMDAwMDA7 zCY8sA9lmUtxtykquYBriB ntgaPcdFlcGPllPWojZ246 GHAaaMrxSxP3ALemOMSpJD 69QO37uCLm x4G1mRM4F5MmKZYdrvshps ubzJG1UAJqFQAbsJ46dUYv FTvyCt9sv5C5i203YHEyTH QzlS12Ut4t rQjyBUUrgUDZuG2tuxhdf6 tibkucVpNgXCHbNUl2NRk8 DFMwrUeqJdVvVBF8NyM8JR Z4qXAzjY1t iAfmkktdaQ7oMgt+RkVNQU vUTF15DU71gUUmt6L1rRB1 I9VmYONdydkniezxiDT2YU WtZZDgqD65 xDXrXTrqJe0lu1Y6k066OA LlJCZppU19Mk6fcPvzNSVd cGRWvY5uxxwrw9ihhkcxOz AwMDAwMDt0 FSo8ICGsuIulIkMfXPP3It L4NGY2dSSjcA4zeXmoxcwh hE3iIgc+F6E5P5GnKzjbpQ I+LH47EEVs RK89oQYlgRKfe3xcxJw7Gb ZvIJEpLSE8aLbyDTgow0Ig AQCxW12dqWZup2K0CULqvY xhcHNlOyBl xSU0vR5yXBkhvcvzs0mhwm uyZmayj2hnba96iC69C64s IHdpZHRoPSIzMCUiIHZhbG aumn7bpU4e Ii8+GRCtpMO3jWC3tN7qCh VyRiI1JWnfC688RcDkxCVe Wanjz2iog8lbiJh4XnDtUZ IgdmFsaWdu YBJ7q5ZfIw59B92yOPixVM VyUURxIPWzDHQpkRigho3v uO2lXn8+VS1fv7xaxh54pW 48dHI+PHRk ISU9sOokAAjjWJJqgO1bNF jsLtH1EHTsFkGckD78hKQb DWhpSg3paSlmhEkpMH3eWE Fthpzbk804 IsSmh6bmPJXzoOPyEVzwHP C2P43cq0I3HSDbPHMvQJK6 yGO1hP3raWrnqtuhuIRxjG sgdmVydGlj XEsiWSirA816FCNzeBxzQz TkyHCaH7fwueWFQP7fGels dGQ+JGYvMAO6fMufOXszDC RjcF5yCPKo A2t2XbEcDvG7VXmmL3Uhgr A0WYWxcXYuBGNtnVFNtV0v ohjip8ppmadqEfIoZYDmIK j5VPg0BOSs xYneOhInTFW5XqG5IDT0cD PxdJ7xaLyupwmssV8mLmv+ RklOOjwvdGQ+NQJnQRP7pD xlPSdwYWRk lA0tZQSuE4w9CjCmVqJ3PS dzB5BtbxQ8AIFprINgMTCz uCAYhR4rzunmw5sajgpzRr AwMDAwMDt0 KFr8XRVwiSrpOoSdHFQ7Za V2ZMA0dIXtcW6bbGpqqhxe lM5uRdd+TVJOOjwvdGQ+PH XiTWA4xRsw JGzbQNAseZ7yWGExP3v9Ou PpUeD8NIifZ5SowwH8JKFn sJZqCVVwlNRLwE7klkwkc4 xvcjogIzAw YPGkKLr9EXq9FLPmwEtaFa RrUTA6XwP4BSN1wJCqvD0k pBlwvifqmA6gKhh+UGF5ZX Q3JQ76EW12 L7GrGbvrwLCmmWU+PHRhYm xlIHdpZHRoPScxMDAlJyBz eNjcSH9cJl1pZGRxRMNytI xhcHNlOiBj b2x (more content not included)... Normal [facility] Provider Orderson 11-14-2022 Provider Orders [id number]#1.0 0OTGTIFF Normal [facility] .Auto Diff 1on 11-13-2022 Auto [place] % 7 % Normal -12 [facility] Comment on above: Performed By: #### 6 [id number], 4230624, [id number], [id number], [id number], [id number], [id number] #### [facility] (DEFAULT) [address] [place] [address] 54163 Baso Abs# 0.1 x10 Normal 0.0-0.2 [facility] Comment on above: Performed By: #### 6 241773, 1473710, 57622022, [id number], [id number], 9793323, [id number] #### [facility] (DEFAULT) [address] [place] [address] 96543 Basophils/100 WBC (Bld) 0.8 % Normal 0.2-2.0 [facility] Comment on above: Performed By: #### 6 132504, 7152455, 16797535, [id number], [id number], 2759467, [id number] #### [facility] (DEFAULT) [address] [place] [address] 63329 Eos Abs# 0.1 x10 Normal 0.0-0.4 [facility] Comment on above: Performed By: #### 6 071072, 0327531, 96356027, [id number], 9914995929, 3512361, [id number] #### [facility] (DEFAULT) [address] [place] [address] 54942 Eosinophils/100 WBC (Bld) 2.0 % Normal 0.9-4.0 [facility] Comment on above: Performed By: #### 6 205586, 2689636, 73022390, 6194351243, 1396557466, 5984480, 1234293679 #### [facility] (DEFAULT) [address] [place] [address] Lymph Abs# 1.5 x10 Normal 1.3-2.9 [facility] Comment on above: Performed By: #### 6 849286, 3657211, 47249569, 1034384437, [id number], 0272446, [id number] #### [facility] (DEFAULT) [address] [place] [address] Lymphocytes/100 WBC (Bld) 21 % Normal 14-48 [facility] Comment on above: Performed By: #### 6 677285, 6296146, 26677435, 5699157284, 6979066944, 4190818, [id number] #### [facility] (DEFAULT) [address] [place] [address] Whatcom Abs# 0.5 x10 Normal 0.0-0.8 [facility] Comment on above: Performed By: #### 6 803034, 5828741, 36914136, 4761428114, 1889620425, 4275255, [id number] #### [facility] (DEFAULT) [address] [place] [address] Neut Abs# 4.8 x10 Normal 1.5-9.2 [facility] Comment on above: Performed By: #### 6 831947, 4560941, 16860954, 9413564340, 1296936173, 7440222, 0890956979 #### [facility] (DEFAULT) [address] [place] [address] Neutrophils/100 WBC (Bld) 69 % Normal 44-88 [facility] Comment on above: Performed By: #### 6 323655, 8567296, 93083447, 0919250420, 2701747184, 0174413, 7188503214 #### [facility] (DEFAULT) [address] [place] [address] 06100 CBC w/ Auto Diffon 3 Erythrocyte distribution width (RBC) [Ratio] 14.9 % Normal 11.5-15.0 [facility] Comment on above: Performed By: #### 6 058853, 4516433, 67610936, 6875338166, 6105557499, 0388560, [id number] #### [facility] (DEFAULT) [address] [place] [address] Hematocrit (Bld) [Volume fraction] 35.5 % Normal 33.7-40.4 [facility] Comment on above: Performed By: #### 6 775521, 7149860, 42163376, 7750652667, 6898835333, 4752399, 4712653110 #### [facility] (DEFAULT) [address] [place] [address] Hemoglobin (Bld) [Mass/Vol] 12.1 g/dL Normal 11.3-15.9 [facility] Comment on above: Performed By: #### 6 902951, 5989158, 97249288, 3840641828, 7167236834, 1871245, [id number] #### [facility] (DEFAULT) [address] [place] [address] Man Diff? Auto Invalid Interpretation Code [facility] Comment on above: Performed By: #### 6 711936, 4755134, 12024565, [id number], [id number], 4287058, [id number] #### [facility] (DEFAULT) [address] [place] [address] MCH (RBC) [Entitic mass] 29 pg Normal 24-34 [facility] Comment on above: Performed By: #### 6 312498, 1849182, 94197578, 2233850012, 9310658539, 2448832, [id number] #### [facility] (DEFAULT) [address] [place] [address] MCHC (RBC) [Mass/Vol] 34 g/dL Normal 26-37 [facility] Comment on above: Performed By: #### 6 017069, 2988309, 45150555, 1311936877, 6903058854, 0545148, [id number] #### [facility] (DEFAULT) [address] [place] [address] 89176 MCV (RBC) [Entitic vol] 84 fL Normal 81-100 M [facility] Comment on above: Performed By: #### 6 226974, 2239348, 41443977, 5156678472, 5244516261, 0290403, [id number] #### [facility] (DEFAULT) [address] [place] [address] Platelet 265 x10 Normal 138-427 [facility] Comment on above: Performed By: #### 6 182122, 5119135, 28580802, 4103799687, 9838024929, 8197235, 9798547578 #### [facility] (DEFAULT) [address] [place] [address] Platelet mean volume (Bld) [Entitic vol] 6.9 fL Normal 6.3-10.2 [facility] Comment on above: Performed By: #### 6 187969, 8212095, 41894567, 7544762926, 4520705252, 2362270, 0990861240 #### [facility] (DEFAULT) [address] [place] [address] RBC 4.22 x10 Normal 3.70-5.30 [facility] Comment on above: Performed By: #### 6 666906, 8263015, 68611372, 3886524776, 6319487958, 1644676, 6484331751 #### [facility] (DEFAULT) [address] [place] [address] WBC 7.0 x10 Normal 3.5-10.5 [facility] Comment on above: Performed By: #### 6 311755, 3340019, 19049661, 2101408033, 1297941397, 0157287, 8115247091 #### [facility] (DEFAULT) [address] [place] [address] CMP Standardon 11-13-2022 eGFR Non AA >60 Invalid Interpretation Code [facility] Comment on above: Performed By: #### 6 778354, 2453904, 96169842, 9646266833, 8841234749, 8294163, 7301433649 #### [facility] (DEFAULT) [address] [place] [address] eGFR AA >60 Invalid Interpretation Code [facility] Comment on above: Performed By: #### 6 635947, 5954053, 27220500, 5350310934, 4181332675, 9412436, 9926084933 #### [facility] (DEFAULT) [address] [place] [address] Albumin [Mass/Vol] 4.0 g/dL Normal 3.5-5.0 [facility] Comment on above: Performed By: #### 6 594860, 6706058, 83553810, 1751792263, 6739087504, 9111422, 1484343923 #### [facility] (DEFAULT) [address] [place] [address] Alk Phos 61 IU/L Normal 32-91 [facility] Comment on above: Performed By: #### 6 297084, 5070098, 71037413, 0984651892, 4022382290, 4901368, 7997711436 #### [facility] (DEFAULT) [address] [place] [address] ALT [Catalytic activity/Vol] 18.0 U/L Normal 14.0-54.0 [facility] Comment on above: Performed By: #### 6 252936, 6763590, 38794610, 9302217677, 2746987563, 1487315, 8065542895 #### [facility] (DEFAULT) [address] [place] [address] 40749 AST [Catalytic activity/Vol] 19 U/L Normal 15-41 [facility] Comment on above: Performed By: #### 6 779026, 7169196, 14914497, 6499931470, 0230909866, 6196452, 7809967221 #### [facility] (DEFAULT) [address] [place] [address] Bili Total 0.6 mg/dL Normal 0.3-1.2 [facility] Comment on above: Performed By: #### 6 298962, 9137450, 04894602, 6490931423, 5122642875, 3464196, 8239692268 #### [facility] (DEFAULT) [address] [place] [address] 19648 Calcium [Mass/Vol] 8.5 mg/dL Low 8.9-10.3 [facility] Comment on above: Performed By: #### 6 353919, 2996857, 85060321, 7426668265, 4808449514, 5633180, 2098077080 #### [facility] (DEFAULT) [address] [place] [address] 62744 Chloride [Moles/Vol] 107 mmol/L Normal 101-[address] [facility] Comment on above: Performed By: #### 6 129741, 3482310, 13609941, 1798334485, 3309683341, 1319976, 8077541114 #### [facility] (DEFAULT) [address] [place]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 surgical issue. Patient still complaining of some epigastric abdominal pain although the nausea is improved. We will proceed to a fluid challenge here. If with fluid challenge the pain and vomiting returned then we will admit the patient to place her GI tract at rest and to consider endoscopy later today. Assessment/Plan 1. Epigastric abdominal pain (R10.13: Epigastric pain) 2. Intractable upper abdominal pain (R10.10: Upper abdominal pain, unspecified) Orders: dicyclomine, 20 mg = 2 mL, Injection, IntraMuscular, Once, Stop date 08/23/20 0:33:00 EST, STAT, Start date 08/23/20 0:33:00 EST famotidine, 20 mg = 2 mL, Soln-IV, IV Push, Once, Stop date 08/23/20 0:33:00 EST, STAT, Start date 08/23/20 0:33:00 EST lorazepam, 1 mg = 0.5 mL, Injection, IV Push, Once, Stop date 08/23/20 1:00:00 EST, Start date 08/23/20 1:00:00 EST morphine, 2 mg = 1 mL, Injection, IV Push, Once, Stop date 08/22/20 21:10:00 EST, STAT, Start date 08/22/20 21:10:00 EST promethazine, 12.5 mg = 0.5 mL, Injection, IV Push, Once, Stop date 08/22/20 21:10:00 EST, STAT, Start date 08/22/20 21:10:00 EST Sodium Chloride 0.9% intravenous solution, 1,000 mL, Soln-IV, IV, Once, Stop date 08/22/20 21:10:00 EST, STAT, Start date 08/22/20 21:10:00 EST, mL/hr, Infuse over 61, minute(s) CT Abdomen/Pelvis w/ Contrast Drug Screen Urine ED Physician consult Hospitalist for continued care Medications Administered Given morphine 2 mg/mL Inj, 2 mg, IV Push [id number] [F], 1000 mL, IV promethazine 25 mg/mL Inj, 12.5 mg, IV Push Disposition Plan Patient Discharge Condition Unchanged Discharge Disposition Admit to observation Discharge Prescription List Prescriptions No active prescription medications Follow-up No qualifying data available Attestation Patient signed out to the attending emergency room physician at 2325 Patient was treated and evaluated by the Physician Steel Estimator. The attending physician was in the Emergency Department at all times and supervised care. The case was discussed with the attending physician and diagnostics were reviewed as needed. Problem List/Past Medical History Ongoing Smoker Historical No qualifying data Medications Inpatient No active inpatient medications Home No active home medications Allergies No Known Medication Allergies Lab Results WBC: 14.4 E9/L High (08/22/20 21:24:00) RBC: 4.9 E12/L (08/22/20:24:00) Hgb: 13.9 gm/dL (08/22/20:24:00) Hct: 42.9 % (08/22/20:24:00) MCV: 87.1 fL (08/22/20:24:00) MCH: 28.2 pg (08/22/20:24:00) MCHC: 32.4 gm/dL (08/22/20:24:00) RDW: 14.1 % (08/22/20:24:00) Platelet: 357 E9/L (08/22/20:24:00) MPV: 7.4 fL (08/22/20:24:00) Neutro Auto: 86.7 % High (08/22/20:24:00) Lymph Auto: 7 % Low (08/22/20:24:00) Whatcom Auto: 4.8 % (08/22/20:24:00) Eos Auto: 0.6 % (08/22/20:24:00) Basophil Auto: 0.9 % (08/22/20:24:00) Neutro Absolute: 12.5 E9/L High (08/22/20:24:00) Lymph Absolute: 1 E9/L (08/22/20:24:00) Whatcom Absolute: 0.7 E9/L (08/22/20:24:00) Eos Absolute: 0.1 E9/L (08/22/20:24:00) Basophil Absolute: 0.1 E9/L (08/22/20::00) Sed Rate Automated: 6 mm/hr (08/22/20::00) Glucose Lvl: 208 mg/dL High (08/22/20:24:00) BUN: 11 mg/dL (08/22/20:24:00) Creatinine: 0.8 mg/dL (08/22/20:24:00) eGFR: >60 (08/22/20:24:00) eGFR AA: >60 (08/22/20::00) BUN/Creat Ratio: 14 (08/22/20:24:00) Sodium Lvl: 136 mmol/L (08/22/20:24:00) Potassium Lvl: 3.4 mmol/L Low (08/22/20:24:00) Chloride: 102 mmol/L (08/22/20:24:00) CO2: 22 mmol/L (08/22/20:24:00) AGAP: 15 mEq/L (08/22/20:24:00) Calcium Lvl: 9.4 mg/dL (08/22/20:24:00) Alk Phos: 75 Int._Unit/L (08/22/20:24:00) ALT: 14 Int._Unit/L (08/22/20:24:00) AST: 13 Int._Unit/L (12/29/20 21:24:00) Total Protein: 7.7 gm/dL (08/22/20 21:24:00) Albumin Lvl: 4.8 gm/dL (08/22/20 21:24:00) Globulin: 2.9 gm/dL (08/22/20 21:24:00) A/G Ratio: 1.7 (08/22/20 21:24:00) Bili Total: 1 mg/dL (08/22/20:24:00) Bili Direct: 0.1 mg/dL (08/22/20:24:00) Bili Indirect: 0.9 mg/dL (08/22/20 21:24:00) Lipase Lvl: 25 unit/L (08/22/20:24:00) Lactic Acid Lvl: 1.1 mmol/L (08/22/20:24:00) CRP: 0.6 mg/dL (08/22/20:24:00) Beta hCG Ql: NEGATIVE1 (08/22/20:24:00) Diagnostic Results No qualifying data available. Normal [facility] Comment on above: Result Comment: Elec tronically Signed By: Pilo Castillo PA-C\.br\Date and Time Signed: 08/22/20 23:21 EST\.br\Electronically Co-Signed By: Blaine Lei MD\.br\Date and Time Co-Signed: 08/23/20 06:27 EST ED Patient Education Noteon 08-23-2020 ED Patient Education Note Normal [facility] ED Patient Summaryon 020 ED Patient Summary [place] [id number] Patient Discharge Instructions Person Information Name: MARY PANIAGUA Age: 35 Years Arrival Date: 08/22/2020 20:19:32 Discharge Diagnosis: 1:Epigastric abdominal pain; 2:IBS (irritable bowel syndrome); 3:Anxiety Primary Care Physician: MANNIE LEVY CNP Provider Information Primary Provider: Blaine Lei MD Advanced Agricultural Engineer:Pilo Castillo PA-C The exam and treatment you received in the Emergency Department were for an urgent problem and are not intended as complete care. It is important that you follow up with a doctor, nurse practitioner, or physician?s content assistant for ongoing care. If your symptoms become worse or you do not improve as expected and you are unable to reach your usual health care provider, you should return to the Emergency Department. We are available 24 hours a day. MAYR PANIAGUA has been given the following list of patient education materials, prescriptions and follow-up instructions: Follow-up Instructions: In the event that this physician does not participate in your insurance network, please consult with your insurance company to find a nearby participating provider. Patient Education Materials: A MESSAGE TO ALL PATIENTS REGARDING OPIOIDS PRESCRIPTION OPIOIDS: WHAT YOU NEED TO KNOW Prescription opioids can be used to help relieve [id number] pain and are often prescribed following a surgery or injury, or for certain health conditions. These medications can be an important part of the treatment but also come with serious risks. It is important to work with your healthcare provider to make sure you are getting the safest, most effective care. WHAT ARE THE RISKS AND SIDE EFFECTS OF OPIOID USE? Prescription opioids carry serious risks of addiction and overdose, especially with prolonged use. An opioid overdose, often marked by slowed breathing, can cause sudden . The use of prescription opioids can have a number of side effects as well, even when taken as directed: ? Tolerance?meaning you might need to take more of the medication for the same pain relief ? Physical dependence?meaning you have symptoms of withdrawal when a medication is stopped ? Increased sensitivity to pain ? Constipation ? Nausea, vomiting, and dry mouth ? Sleepiness and dizziness ? Confusion ? Depression ? Low levels of testosterone that can result in lower sex drive, energy, and strength ? Itching and sweating RISKS ARE GREATER WITH: ? History of drug misuse, substance use disorder, or overdose ? Mental health conditions (such as depression or anxiety) ? Sleep apnea ? Older age (65 years and older) ? Avoid alcohol while taking prescription opioids. Also, unless specifically advised by your health care provider, medications to avoid include: ? Benzodiazepines (such as Xanax or Valium) ? Muscle relaxants (such as Soma or Flexeril) ? Hypnotics (such as Ambien or Lunesta) ? Other prescription opioids KNOW YOUR OPTIONS Talk to your health care provider about ways to manage your pain that don?t involve prescription opioids. Some of these options may actually work better and have fewer risks and side effects. Options may include: ? Pain relievers such as acetaminophen, ibuprofen, and naproxen ? Some medication that are also used for depression or seizures ? Physical therapy and exercise ? Cognitive behavioral therapy, a psychological, goal-directed approach, in which patients learn how to modify physical, behavioral, and emotional triggers of pain and stress. IF YOU ARE PRESCRIBED OPIOIDS FOR PAIN: ? Never take opioids in greater amounts or more often than prescribed. ? Follow up with your primary health care provider. o Work together to create a plan on how to manage your pain. o Talk about ways to help manage your pain that don?t involve prescription opioids. o Talk about any and all concerns and side effects. ? Help prevent misuse and abuse o Never sell or share prescription opioids. o Never use another person?s prescription opioids. ? Store prescription opioids in a secure place and out of reach of others (this may include visitors, children, friends, and family). ? Safely dispose of unused prescription opioids: Find your community drug take-back program or your pharmacy mail-back program, or flush them down the toilet, following guidance from the Food and Drug Administration (www.fda.gov/Drugs/Res ourcesForYou). ? Visit www.cdc.gov/drugoverdo se to learn about the risks of opioids abuse and overdose. ? If you believe you may be struggling with addiction, tell your health career development associate and ask for guidance or call [facility] National Helpline at 9-107-523-RVYN. v Source: US Department of Health and Human Services/Center for Disease Control & Prevention [facility] Medications Given: Medication Dose Route Sodium Chloride 0.9% 1000.00 mL IV Left Arm famotidine 20.00 mg IV Push Left Antecubital Keira morphine 2.00 mg IV Push Left Arm promethazine 12.50 mg IV Push Left Arm lorazepam 1.00 mg IV Push Left Antecubital Keira morphine 2.00 mg IV Push Left Antecubital Keira Medication Information: Comment: Pharmacy Information: You may receive a survey from [facility] asking you to rate your care experience. Your feedback is important and will help us understand what we do well and how we can improve the quality of care we provide to you, your loved ones and our community. It?s an honor to serve you. Thank you for choosing [facility] Patient Education Materials: JAY Nunez RACHEL , have received the following patient education materials/instructions and have verbalized understanding: Patient Education Materials: Follow-up Instructions: Patient Signature Date Clinician/Nurse Signature ___ Date 08/23/2020 11:14:07 Normal [facility] [id number] 08-23-2020 HbA1c (Bld) [Mass fraction] 6.4 % High <=5.9 [facility] Comment on above: Performed By: #### 1 [id number] ####[facility] [id number] [place] [address] History and Physicalon 08-23 History and Physical Chief Complaint pt to ED via [facility] with c/o abd pain since 3am today with n/v. 2 episodes of emesis earlier today. denies diarrhea or sick contact. states my stomach feels clamped down 100mcg of fentanyl given in route. pt tearful upon arrival. History of Present Illness 35-year-old female with history of anxiety, IBS who presented to the ED today with chief complaint of epigastric pain accompanied with vomiting early this morning. Patient states that she has a GI physician who she sees for IBS however is currently on no medications. She has never had a EGD done before. She was in her usual state of health until this morning when she woke up with severe cramping in her epigastrium and she had 1-2 episodes of vomiting which were nonbloody. In the ER, her vitals were stable, labs unremarkable. CT abdomen/pelvis was done with IV contrast that did not reveal any acute inflammatory changes. Vague 2 cm area of low-attenuation in the left lobe of the liver. Mild gastritis. She is being admitted to the hospitalist service due to intractable abdominal pain. Upon my examination at bedside, she states that her pain is better from this morning. Review of Systems Negative except for stated as above Physical Exam Vitals & Measurements T: 36.6 ?C (Oral) TMIN: 36.3 ?C (Oral) TMAX: 36.6 ?C (Oral) HR: 96(Monitored) RR: 18 BP: 138/92 SpO2: 99% WT: 78.6 kg WT: 78.6 kg General: Alert and oriented, No acute distress. Eye: Normal conjunctiva. HENT: Normocephalic. Neck: Supple, No jugular venous distention. Respiratory: Clear to auscultation bilaterally Cardiovascular: Normal rate, Regular rhythm. Gastrointestinal: Soft, mild tenderness to palpation in the epigastrium. Integumentary: Warm. Lab Results WBC: 14.4 E9/L High (08/22/20 21:24:00) RBC: 4.9 E12/L (08/22/20 21:24:00) Hgb: 13.9 gm/dL (08/22/20 21:24:00) Hct: 42.9 % (08/22/20 21:24:00) MCV: 87.1 fL (08/22/20 21:24:00) MCH: 28.2 pg (08/22/20:24:00) MCHC: 32.4 gm/dL (08/22/20:24:00) RDW: 14.1 % (08/22/20 21:24:00) Platelet: 357 E9/L (08/22/20 21:24:00) MPV: 7.4 fL (08/22/20:24:00) Neutro Auto: 86.7 % High (08/22/20:24:00) Lymph Auto: 7 % Low (08/22/20:24:00) Whatcom Auto: 4.8 % (08/22/20:24:00) Eos Auto: 0.6 % (08/22/20:24:00) Basophil Auto: 0.9 % (08/22/20:24:00) Neutro Absolute: 12.5 E9/L High (08/22/20:24:00) Lymph Absolute: 1 E9/L (08/22/20:24:00) Whatcom Absolute: 0.7 E9/L (08/22/20::00) Eos Absolute: 0.1 E9/L (08/22/20:24:00) Basophil Absolute: 0.1 E9/L (08/22/20:24:00) Sed Rate Automated: 6 mm/hr (08/22/20::00) Glucose Lvl: 208 mg/dL High (08/22/20:24:00) BUN: 11 mg/dL (08/22/20:24:00) Creatinine: 0.8 mg/dL (08/22/20::00) eGFR: >60 (08/22/20:24:00) eGFR AA: >60 (08/22/20:24:00) BUN/Creat Ratio: 14 (08/22/20:24:00) Sodium Lvl: 136 mmol/L (08/22/20:24:00) Potassium Lvl: 3.4 mmol/L Low (08/22/20:24:00) Chloride: 102 mmol/L (08/22/20:24:00) CO2: 22 mmol/L (08/22/20:24:00) AGAP: 15 mEq/L (08/22/20:24:00) Calcium Lvl: 9.4 mg/dL (08/22/20:24:00) Alk Phos: 75 Int._Unit/L (08/22/20:24:00) ALT: 14 Int._Unit/L (08/22/20:24:00) AST: 13 Int._Unit/L (08/22/20:24:00) Total Protein: 7.7 gm/dL (08/22/20:24:00) Albumin Lvl: 4.8 gm/dL (08/22/20:24:00) Globulin: 2.9 gm/dL (08/22/20:24:00) A/G Ratio: 1.7 (08/22/20:24:00) Bili Total: 1 mg/dL (08/22/20:24:00) Bili Direct: 0.1 mg/dL (08/22/20:24:00) Bili Indirect: 0.9 mg/dL (08/22/20:24:00) Lipase Lvl: 25 unit/L (08/22/20:24:00) Lactic Acid Lvl: 1.1 mmol/L (08/22/20:24:00) Magnesium: 1.7 mg/dL (08/22/20:24:00) CRP: 0.6 mg/dL (08/22/20:24:00) Beta HB Qnt: 1.04 mmol/L High (08/22/20:24:00) U Amph Scr: Negative (08/23/20 01:00:00) U Leticia Scr: Negative (08/23/20 01:00:00) U Benzodia Scr: Negative (08/23/20 01:00:00) U Cannab Scr: Negative (08/23/20 01:00:00) U Cocaine Scr: Negative (08/23/20 01:00:00) U Opiate Scr: POS1 Abnormal (08/23/20 01:00:00) U PCP Scr: Negative (08/23/20 01:00:00) UA Spec Desc: Clean Catch (08/23/20 01:00:00) UA Color: Straw3 Abnormal (08/23/20 01:00:00) UA Clarity: Clear2 (08/23/20 01:00:00) UA Spec Grav: 1.015 (08/23/20 01:00:00) UA pH: 7.5 (08/23/20 01:00:00) UA Protein: NEGATIVE1 (08/23/20 01:00:00) UA Glucose: 2+ Abnormal (08/23/20 01:00:00) UA Ketones: 1+ Abnormal (08/23/20 01:00:00) UA Bili: NEGATIVE1 (08/23/20 01:00:00) UA Blood: NEGATIVE1 (08/23/20 01:00:00) UA Nitrite: NEGATIVE1 (08/23/20 01:00:00) UA Urobilinogen: 0.2 (08/23/20 01:00:00) UA Leuk Est: NEGATIVE1 (08/23/20 01:00:00) UA RBC: 0-3 (08/23/20 01:00:00) UA Squam Epithelial: 0-2 (08/23/20 01:00:00) UA WBC: 0-5 (08/23/20 01:00:00) Beta hCG Ql: NEGATIVE1 (08/22/20 21:24:00) Diagnostic Results POWERSCRIBE REPORT IMPRESSION: VAGUE 2 CM AREA OF LOW ATTENUATION IN THE MEDIAL LEFT LOBE OF THE LIVER INDETERMINATE. BETTER CHARACTERIZATION WITH DEDICATED CT AND/OR MRI SUGGESTED. Assessment/Plan 35-year-old female with history of anxiety, IBS who presented to the ED today with chief complaint of epigastric pain accompanied with vomiting x 1 day. 1. Epigastric abdominal pain (R10.13: Epigastric pain) ?Epigastric pain has improved since admission. Per patient, started acutely early this morning and had one episode of vomiting which was nonbloody. ?She has a history of IBS and states that the symptoms are similar. ?Currently resting comfortably, will continue pain medication/antispasmod ics/PPI for possible gastritis. > CBC/BMP/lipase/LFTs within normal limits. ?CT abdomen/pelvis with IV contrast that did not reveal any acute inflammatory changes. Vague 2 cm area of low-attenuation in the left lobe of the liver. ?Start clears, advance diet as tolerated. 2. IBS (irritable bowel syndrome) (K58.9: Irritable bowel syndrome without diarrhea) ?Not on any chronic medications. Has a GI physician however has never had a EGD before. Advised the patient to follow-up with them as soon as she is able to in the outpatient setting. 3. Anxiety (F41.9: Anxiety disorder, unspecified) ?Restart home medications once med rec completed. Orders: acetaminophen, 650 mg = 2 tab(s), Tab, Oral, q6hr PRN Pain, Routine, Start date 08/23/20 10:47:00 EST dicyclomine, 20 mg = 2 mL, Injection, IntraMuscular, TID, Routine, Start date 08/23/20 14:00:00 EST ondansetron, 4 mg = 2 mL, Injection, IV Push, q6hr PRN Nausea, Routine, Start date 08/23/20 10:47:00 EST pantoprazole, 40 mg = 1 tab(s), Tab-DR, Oral, Daily, Routine, Start date 08/23/20 10:51:00 EST promethazine, 12.5 mg = 0.5 mL, Injection, IV Push, q6hr PRN Nausea, Routine, Start date 08/23/20 10:47:00 EST Clear Liquid Diet Place in Status Resuscitation Status - Full Up ad Magdalena Weight Diet: Clears DVT prophylaxis: scds. Precautions: none CODE STATUS: Full I anticipate < 2 mn stay for reasons presented as above. Dr. Romario Leigh Hospitalist This report was transcribed using voice recognition software. Every effort was made to ensure accuracy, however, inadvertently computerized washing machine operator mistakes may be present. Problem List/Past Medical History Ongoing Smoker Historical No qualifying data Medications Inpatient acetaminophen 325 mg Tab, 650 mg= 2 tab(s), Oral, q6hr, PRN Bentyl 10 mg/mL Injection, 20 mg= 2 mL, IntraMuscular, TID Pantoprazole [address] Tab, 40 mg= 1 tab(s), Oral, Daily Phenergan 25 mg/mL Injection, 12.5 mg= 0.5 mL, IV Push, q6hr, PRN Zofran 4 mg/2 mL Injection, 4 mg= 2 mL, IV Push, q6hr, PRN Home No active home medications Allergies No Known Medication Allergies Patient able to tolerate liquids, with improvement in abdominal pain. We will plan to discharge her, she is in agreement. Was able to addictions counselor her on smoking cessation. She should follow-up with her primary care physician for an EGD if needed. No changes are being made to her chronic medications at this time. *Please place this as my admission H&P as well as discharge summary* Normal [facility] Comment on above: Result Comment: Elec tronically Signed By: KSENIA MCINTYRE, Romario\.david\Date and Time Signed: 08/23/20 16:30 EST Inpatient Clinical Summaryon 08-23-2020 Inpatient Clinical Summary [place] [id number] Clinical Summary Person Information: Name: MARY PANIAGUA Age: 35 Years : 1985 Sex: Female PCP: MANNIE LEVY CNP Marital Status: Single Race: White Ethnicity: Non- or Language: French Visit Id: Visit Reason: Vomiting; Nausea; Epigastric Pain; EPIGASTRIC PAIN, INTRACTABLE UPPER ABOMINAL PAIN Speciality: Acuity: Enc Type: Observation Med Service: Medical Arrival: 08/22/2020 20:19:32 Discharge: Dispo Type: Admitted as IP to this Hosp Address: [address] [place] [address] Provider Notes: Diagnosis: 1:Epigastric abdominal pain; 2:IBS (irritable bowel syndrome); 3:Anxiety Problems Active Smoker Smoking Status: Current Every Day Smoker Functional Status: Sensory Deficits: No hearing deficits, No visual deficits History of Falls: Mobility Assistance Prior to Admission: Independent ADLs: Independent Current Level of Assistance for Self-Care/Mobility: Cognitive Status: Oriented x 3 Allergies No Known Medication Allergies Measurements: Height: 160 cm Weight: 78.6 kg Blood Pressure: 161 mmHg / 91 mmHg BMI: 30.7 kg/m2 Procedures Carpal tunnel release (08/25/2015) Dilation and curettage (08/25/2010) Immunizations No Immunizations Documented This Visit Final Med List: busPIRone (busPIRone 15 mg Tab) 1 Tablets By Mouth 3 times a day. cyclobenzaprine (cyclobenzaprine 10 mg Tab) TAKE 1 TABLET BY MOUTH 3 TIMES DAILY NEEDED FOR MUSCLE SPASMS.. dicyclomine (dicyclomine 10 mg Cap) take 1 capsule by mouth twice a day. escitalopram (escitalopram 10 mg Tab) take 1 tablet by mouth once daily. hydrOXYzine (hydrOXYzine pamoate 50 mg Cap) TAKE 1 CAPSULE BY MOUTH 3 TIMES DAILY NEEDED FOR ANXIETY.. labetalol (labetalol 200 mg Tab) 1 Tablets By Mouth 2 times a day. montelukast (montelukast 10 mg Tab) 1 Tablets By Mouth once a day (in the evening). quetiapine (SEROquel 50 mg Tab) 1 Tablets By Mouth 2 times a day. Care Team Members: Attending Physician: Ronaldo Soni MD Consulting Physician: Referring Physician: Follow up: With: Address: When: MANNIE LEVY CNP [address] [facility] [address] [place] [address] [phone] Within 1 to 2 weeks Patient Education Information: Low-FODMAP Eating Plan; Diet for Irritable Bowel Syndrome Normal [facility] Inpatient Patient Summaryon 08-23-2020 Inpatient Patient Summary [place] [id number] Patient Discharge Instructions PERSON INFORMATION Name: MARY PANIAGUA Date of : 1985 Current Date: 08/23/2020 16:37:09 PHYSICIANS Admitting Physician: Ronaldo Soni MD Primary Care Physician: MANNIE LEVY CNP PCP Phone Number: [phone] Comment: Discharge Diagnosis: 1:Epigastric abdominal pain; 2:IBS (irritable bowel syndrome); 3:Anxiety Condition at Discharge: Improved MARY PANIAGUA has been given the following list of follow-up instructions, prescriptions, and patient education materials: PATIENT FOLLOW-UP INFORMATION Diet: Regular Discharge Activity: Ambulate as tolerated, Expect mild pain, Activity as tolerated Discharge Restrictions: Wound Care Instructions: Remove Your Dressing In Days Call Your Doctor For: IF UNABLE TO CONTACT YOUR PHYSICIAN AND YOU FEEL IT IS AN EMERGENCY, GO TO THE NEAREST EMERGENCY ROOM OR CALL 911 Home Treatment: Devices/Equipment: Special Services: Additional Instructions: Primary Care Physician to provide the following pending test results: None Follow up: With: Address: When: MANNIE LEVY CNP [address] [facility] [address] [place] [address] [phone] Within 1 to 2 weeks In the event that this physician does not participate in your insurance network, please consult with your insurance company to find a nearby participating provider. Comment: IJAY RACHEL, have received the attached patient education materials/instructions and have verbalized understanding: Patient Signature Date Clinican/Nurse Signature ___ Date HERE ARE THE MEDICATION CHANGES THAT OCCURRED DURING YOUR HOSPITAL STAY Medications to Continue with No Changes Other Medications busPIRone (busPIRone 15 mg Tab) 1 Tablets By Mouth 3 times a day. Last Dose: ___Next Dose: ___ cyclobenzaprine (cyclobenzaprine 10 mg Tab) TAKE 1 TABLET BY MOUTH 3 TIMES DAILY NEEDED FOR MUSCLE SPASMS.. Last Dose: ___Next Dose: ___ dicyclomine (dicyclomine 10 mg Cap) take 1 capsule by mouth twice a day. Last Dose: ___Next Dose: ___ escitalopram (escitalopram 10 mg Tab) take 1 tablet by mouth once daily. Last Dose: ___Next Dose: ___ hydrOXYzine (hydrOXYzine pamoate 50 mg Cap) TAKE 1 CAPSULE BY MOUTH 3 TIMES DAILY NEEDED FOR ANXIETY.. Last Dose: ___Next Dose: ___ labetalol (labetalol 200 mg Tab) 1 Tablets By Mouth 2 times a day. Last Dose: ___Next Dose: ___ montelukast (montelukast 10 mg Tab) 1 Tablets By Mouth once a day (in the evening). Last Dose: ___Next Dose: ___ quetiapine (SEROquel 50 mg Tab) 1 Tablets By Mouth 2 times a day. Last Dose: ___Next Dose: ___ Comment: MEDICATION LIST PROVIDED FOR YOU IS A LIST OF YOUR CURRENT MEDICATIONS. PLEASE CARRY THIS WITH YOU AT ALL TIMES. busPIRone (busPIRone 15 mg Tab) 1 Tablets By Mouth 3 times a day. cyclobenzaprine (cyclobenzaprine 10 mg Tab) TAKE 1 TABLET BY MOUTH 3 TIMES DAILY NEEDED FOR MUSCLE SPASMS.. dicyclomine (dicyclomine 10 mg Cap) take 1 capsule by mouth twice a day. escitalopram (escitalopram 10 mg Tab) take 1 tablet by mouth once daily. hydrOXYzine (hydrOXYzine pamoate 50 mg Cap) TAKE 1 CAPSULE BY MOUTH 3 TIMES DAILY NEEDED FOR ANXIETY.. labetalol (labetalol 200 mg Tab) 1 Tablets By Mouth 2 times a day. montelukast (montelukast 10 mg Tab) 1 Tablets By Mouth once a day (in the evening). quetiapine (SEROquel 50 mg Tab) 1 Tablets By Mouth 2 times a day. Pharmacy Information: Other: [facility] Comment: PATIENT EDUCATION INFORMATION Instructions: Low-FODMAP Eating Plan FODMAPs (fermentable oligosaccharides, disaccharides, monosaccharides, and polyols) are sugars that are hard for some people to digest. A low-FODMAP eating plan may help some people who have bowel (intestinal) diseases to manage their symptoms. This meal plan can be complicated to follow. Work with a diet and pharmacy informatics specialist (dietitian) to make a low-FODMAP eating plan that is right for you. A dietitian can make sure that you get enough nutrition from this diet. What are tips for following this plan? Reading food labels ? Check labels for hidden FODMAPs such as: ? High-fructose syrup. ? Honey. ? Agave. ? Natural fruit flavors. ? Onion or garlic powder. ? Choose low-FODMAP foods that contain 3?4 grams of fiber per serving. ? Check food labels for serving sizes. Eat only one serving at a time to make sure FODMAP levels stay low. Meal planning ? Follow a low-FODMAP eating plan for up to 6 weeks, or as told by your health care provider or dietitian. ? To follow the eating plan: 1. Eliminate high-FODMAP foods from your diet completely. 2. Gradually reintroduce high-FODMAP foods into your diet one at a time. Most people should wait a few days after introducing one high-FODMAP food before they introduce the next high-FODMAP food. Your dietitian can recommend how quickly you may reintroduce foods. 3. Keep a daily record of what you eat and drink, and make note of any symptoms that you have after eating. 4. Review your daily record with a dietitian regularly. Your dietitian can help you identify which foods you can eat and which foods you should avoid. General tips ? Drink enough fluid each day to keep your urine pale yellow. ? Avoid processed foods. These often have added sugar and may be high in FODMAPs. ? Avoid most dairy products, whole grains, and sweeteners. ? Work with a dietitian to make sure you get enough fiber in your diet. Recommended foods Grains ? Gluten-free grains, such as rice, oats, buckwheat, quinoa, corn, polenta, and millet. Gluten-free pasta, bread, or cereal. Rice noodles. Hoven tortillas. Vegetables ? Eggplant, zucchini, cucumber, peppers, green beans, [place] sprouts, cruz sprouts, lettuce, arugula, kale, Qatari chard, spinach, candelario greens, bok esthela, summer squash, potato, and tomato. Limited amounts of corn, carrot, and sweet potato. Green parts of scallions. Fruits ? Bananas, oranges, eleonora, limes, blueberries, raspberries, strawberries, grapes, cantaloupe, honeydew melon, kiwi, papaya, passion fruit, and pineapple. Limited amounts of dried cranberries, banana chips, and shredded coconut. Dairy ? Lactose-free milk, yogurt, and kefir. Lactose-free cottage cheese and ice cream. Non-dairy milks, such as almond, coconut, hemp, and rice milk. Yogurts made of non-dairy milks. Limited amounts of goat cheese, brie, mozzarella, parmesan, palauan, and other hard cheeses. Meats and other protein foods ? Unseasoned beef, pork, poultry, or fish. Eggs. Salcido. Tofu (firm) and tempeh. Limited amounts of nuts and seeds, such as almonds, walnuts, brazil nuts, pecans, peanuts, pumpkin seeds, darrian seeds, and sunflower seeds. Fats and oils ? Butter-free spreads. Vegetable oils, such as olive, canola, and sunflower oil. Seasoning and other foods ? Artificial sweeteners with names that do not end in ol such as aspartame, saccharine, and stevia. Maple syrup, white table sugar, raw sugar, brown sugar, and molasses. Fresh basil, coriander, parsley, franki, and thyme. Beverages ? Water and mineral water. Sugar-sweetened soft drinks. Small amounts of orange juice or cranberry juice. Black and green tea. Most dry valerie. Coffee. This may not be a complete list of low-FODMAP foods. Talk with your dietitian for more information. Foods to avoid Grains ? Wheat, including kamut, durum, and semolina. Barley and bulgur. Couscous. Wheat-based cereals. Wheat noodles, bread, crackers, and pastries. Vegetables ? Chicory root, artichoke, asparagus, cabbage, snow peas, sugar snap peas, mushrooms, and cauliflower. Onions, garlic, leeks, and the white part of scallions. Fruits ? Fresh, dried, and juiced forms of apple, pear, watermelon, peach, plum, cherries, apricots, blackberries, boysenberries, figs, nectarines, and khang. Avocado. Dairy ? Milk, yogurt, ice cream, and soft cheese. Cream and sour cream. Milk-based sauces. Custard. Meats and other protein foods ? Fried or fatty meat. Sausage. Cashews and pistachios. Soybeans, baked beans, black beans, chickpeas, kidney beans, nicole beans, navy beans, lentils, and split peas. Seasoning and other foods ? Any sugar-free gum or candy. Foods that contain artificial sweeteners such as sorbitol, mannitol, isomalt, or xylitol. Foods that contain honey, high-fructose corn syrup, or agave. Bouillon, vegetable stock, beef stock, and chicken stock. Garlic and onion powder. Condiments made with onion, such as hummus, chutney, pickles, relish, salad dressing, and salsa. Tomato paste. Beverages ? Chicory-based drinks. Coffee substitutes. Chamomile tea. Fennel tea. Sweet or fortified valerie such as port or kelsie. Diet soft drinks made with isomalt, mannitol, maltitol, sorbitol, or xylitol. Apple, pear, and khang juice. Juices with high-fructose corn syrup. This may not be a complete list of high-FODMAP foods. Talk with your dietitian to discuss what dietary choices are best for you. Summary ? A low-FODMAP eating plan is a short-term diet that eliminates FODMAPs from your diet to help ease symptoms of certain bowel diseases. ? The eating plan usually lasts up to 6 weeks. After that, high-FODMAP foods are restarted gradually, one at a time, so you can find out which may be causing symptoms. ? A low-FODMAP eating plan can be complicated. It is best to work with a dietitian who has experience with this type of plan. This information is not intended to replace advice given to you by your health care provider. Make sure you discuss any questions you have with your health care provider. Document Released: 04/07/2018 Document Revised: 07/24/2018 Document Reviewed: 04/07/2018 [employer] Patient Education ? 2019 [employer]. Diet for Irritable Bowel Syndrome When you have irritable bowel syndrome (IBS), it is very important to eat the foods and follow the eating habits that are best for your condition. IBS may cause various symptoms such as pain in the abdomen, constipation, or diarrhea. Choosing the right foods can help to ease the discomfort from these symptoms. Work with your health care provider and diet and pharmacy informatics specialist (dietitian) to find the eating plan that will help to control your symptoms. What are tips for following this plan? ? Keep a food diary. This will help you identify foods that cause symptoms. Write down: ? What you eat and when you eat it. ? What symptoms you have. ? When symptoms occur in relation to your meals, such as pain in abdomen 2 hours after dinner. ? Eat your meals slowly and in a relaxed setting. ? Aim to eat 5?6 small meals per day. Do not skip meals. ? Drink enough fluid to keep your urine pale yellow. ? Ask your health care provider if you should take an ppug-dyz-halsnqu probiotic to help restore healthy bacteria in your gut (digestive tract). ? Probiotics are foods that contain good bacteria and yeasts. ? Your dietitian may have specific dietary recommendations for you based on your symptoms. He or she may recommend that you: ? Avoid foods that cause symptoms. Talk with your dietitian about other ways to get the same nutrients that are in those problem foods. ? Avoid foods with gluten. Gluten is a protein that is found in rye, wheat, and barley. ? Eat more foods that contain soluble fiber. Examples of foods with high soluble fiber include oats, seeds, and certain fruits and vegetables. Take a fiber supplement if directed by your dietitian. ? Reduce or avoid certain foods called FODMAPs. These are foods that contain carbohydrates that are hard to digest. Ask your doctor which foods contain these carbohydrates. What foods are not recommended? The following are some foods and drinks that may make your symptoms worse: ? Fatty foods, such as mozambican fries. ? Foods that contain gluten, such as pasta and cereal. ? Dairy products, such as milk, cheese, and ice cream. ? Chocolate. ? Alcohol. ? Products with caffeine, such as coffee. ? Carbonated drinks, such as soda. ? Foods that are high in FODMAPs. These include certain fruits and vegetables. ? Products with sweeteners such as honey, high fructose corn syrup, sorbitol, and mannitol. The items listed above may not be a complete list of foods and beverages you should avoid. Contact a dietitian for more information. What foods are good sources of fiber? Your health care provider or dietitian may recommend that you eat more foods that contain fiber. Fiber can help to reduce constipation and other IBS symptoms. Add foods with fiber to your diet a little at a time so your body can get used to them. Too much fiber at one time might cause gas and swelling of your abdomen. The following are some foods that are good sources of fiber: ? Berries, such as raspberries, strawberries, and blueberries. ? Tomatoes. ? Carrots. ? Brown rice. ? Oats. ? Seeds, such as darrian and pumpkin seeds. The items listed above may not be a complete list of recommended sources of fiber. Contact your dietitian for more options. Where to find more information ? International Foundation for Functional Gastrointestinal Disorders: www.iffgd.org ? National [place] of Diabetes and Digestive and Kidney Diseases: www.niddk.nih.gov Summary ? When you have irritable bowel syndrome (IBS), it is very important to eat the foods and follow the eating habits that are best for your condition. ? IBS may cause various symptoms such as pain in the abdomen, constipation, or diarrhea. ? Choosing the right foods can help to ease the discomfort that comes from symptoms. ? Keep a food diary. This will help you identify foods that cause symptoms. ? Your health care provider or diet and pharmacy informatics specialist (dietitian) may recommend that you eat more foods that contain fiber. This information is not intended to replace advice given to you by your health care provider. Make sure you discuss any questions you have with your health care provider. Document Released: 10/31/2004 Document Revised: 12/01/2019 Document Reviewed: 04/14/2018 [employer] Patient Education ? 2019 [employer] Medication Leaflets: You may receive a survey from [employer] asking you to rate your care experience. Your feedback is important and will help us understand what we do well and how we can improve the quality of care we provide to you, your loved ones and our community. It?s an honor to serve you. Thank you for choosing [facility] Normal [facility] Magnesiumon 08-23-2020 Magnesium [Mass/Vol] 1.7 mg/dL Normal 1.3-2.[address] [facility] Comment on above: Performed By: #### 1 [id number], [id number], [id number], [id number], [id number], [id number], [id number], [id number], [id number], [id number], [id number], [id number], [id number] ####[facility] [address] [place] [address] Monitor Recordon 08-23-2020 Monitor Record [id number]. 20 [id number]#1. 00CD:127 Normal [facility] Monitor Record 170.. 20 [id number]#1. 00CD:127 Normal [facility] Monitor Record [id number]. 20 [id number]#1. 00CD:127 Normal [facility] Monitor Record [id number]. 20 [id number]#1. 00CD:127 Normal [facility] Monitor Record [id number]. 20 [id number]#1. 00CD:127 Normal [facility] Monitor Record [id number]. 20 [id number]#1. 00CD:127 Normal [facility] Monitor Record [id number] 20 [id number]#1. 00CD:127 Normal [facility] Monitor Record [id number]. 20 [id number]#1. 00CD:127 Normal [facility] Monitor Record [id number]. 20 [id number]#1. 00CD:127 Normal [facility] Patient Education - Texton 1 Patient Education - Text Gastroenterology Low-FODMAP Eating Plan FODMAPs (fermentable oligosaccharides, disaccharides, monosaccharides, and polyols) are sugars that are hard for some people to digest. A low-FODMAP eating plan may help some people who have bowel (intestinal) diseases to manage their symptoms. This meal plan can be complicated to follow. Work with a diet and pharmacy informatics specialist (dietitian) to make a low-FODMAP eating plan that is right for you. A dietitian can make sure that you get enough nutrition from this diet. What are tips for following this plan? Reading food labels ? Check labels for hidden FODMAPs such as: ? High-fructose syrup. ? Honey. ? Agave. ? Natural fruit flavors. ? Onion or garlic powder. ? Choose low-FODMAP foods that contain 3?4 grams of fiber per serving. ? Check food labels for serving sizes. Eat only one serving at a time to make sure FODMAP levels stay low. Meal planning ? Follow a low-FODMAP eating plan for up to 6 weeks, or as told by your health care provider or dietitian. ? To follow the eating plan: 1. Eliminate high-FODMAP foods from your diet completely. 2. Gradually reintroduce high-FODMAP foods into your diet one at a time. Most people should wait a few days after introducing one high-FODMAP food before they introduce the next high-FODMAP food. Your dietitian can recommend how quickly you may reintroduce foods. 3. Keep a daily record of what you eat and drink, and make note of any symptoms that you have after eating. 4. Review your daily record with a dietitian regularly. Your dietitian can help you identify which foods you can eat and which foods you should avoid. General tips ? Drink enough fluid each day to keep your urine pale yellow. ? Avoid processed foods. These often have added sugar and may be high in FODMAPs. ? Avoid most dairy products, whole grains, and sweeteners. ? Work with a dietitian to make sure you get enough fiber in your diet. Recommended foods Grains ? Gluten-free grains, such as rice, oats, buckwheat, quinoa, corn, polenta, and millet. Gluten-free pasta, bread, or cereal. Rice noodles. Hoven tortillas. Vegetables ? Eggplant, zucchini, cucumber, peppers, green beans, [place] sprouts, cruz sprouts, lettuce, arugula, kale, Qatari chard, spinach, candelario greens, bok esthela, summer squash, potato, and tomato. Limited amounts of corn, carrot, and sweet potato. Green parts of scallions. Fruits ? Bananas, oranges, eleonora, limes, blueberries, raspberries, strawberries, grapes, cantaloupe, honeydew melon, kiwi, papaya, passion fruit, and pineapple. Limited amounts of dried cranberries, banana chips, and shredded coconut. Dairy ? Lactose-free milk, yogurt, and kefir. Lactose-free cottage cheese and ice cream. Non-dairy milks, such as almond, coconut, hemp, and rice milk. Yogurts made of non-dairy milks. Limited amounts of goat cheese, brie, mozzarella, parmesan, palauan, and other hard cheeses. Meats and other protein foods ? Unseasoned beef, pork, poultry, or fish. Eggs. Salcido. Tofu (firm) and tempeh. Limited amounts of nuts and seeds, such as almonds, walnuts, brazil nuts, pecans, peanuts, pumpkin seeds, darrian seeds, and sunflower seeds. Fats and oils ? Butter-free spreads. Vegetable oils, such as olive, canola, and sunflower oil. Seasoning and other foods ? Artificial sweeteners with names that do not end in ol such as aspartame, saccharine, and stevia. Maple syrup, white table sugar, raw sugar, brown sugar, and molasses. Fresh basil, coriander, parsley, franki, and thyme. Beverages ? Water and mineral water. Sugar-sweetened soft drinks. Small amounts of orange juice or cranberry juice. Black and green tea. Most dry valerie. Coffee. This may not be a complete list of low-FODMAP foods. Talk with your dietitian for more information. Foods to avoid Grains ? Wheat, including kamut, durum, and semolina. Barley and bulgur. Couscous. Wheat-based cereals. Wheat noodles, bread, crackers, and pastries. Vegetables ? Chicory root, artichoke, asparagus, cabbage, snow peas, sugar snap peas, mushrooms, and cauliflower. Onions, garlic, leeks, and the white part of scallions. Fruits ? Fresh, dried, and juiced forms of apple, pear, watermelon, peach, plum, cherries, apricots, blackberries, boysenberries, figs, nectarines, and khang. Avocado. Dairy ? Milk, yogurt, ice cream, and soft cheese. Cream and sour cream. Milk-based sauces. Custard. Meats and other protein foods ? Fried or fatty meat. Sausage. Cashews and pistachios. Soybeans, baked beans, black beans, chickpeas, kidney beans, nicole beans, navy beans, lentils, and split peas. Seasoning and other foods ? Any sugar-free gum or candy. Foods that contain artificial sweeteners such as sorbitol, mannitol, isomalt, or xylitol. Foods that contain honey, high-fructose corn syrup, or agave. Bouillon, vegetable stock, beef stock, and chicken stock. Garlic and onion powder. Condiments made with onion, such as hummus, chutney, pickles, relish, salad dressing, and salsa. Tomato paste. Beverages ? Chicory-based drinks. Coffee substitutes. Chamomile tea. Fennel tea. Sweet or fortified valerie such as port or kelsie. Diet soft drinks made with isomalt, mannitol, maltitol, sorbitol, or xylitol. Apple, pear, and khang juice. Juices with high-fructose corn syrup. This may not be a complete list of high-FODMAP foods. Talk with your dietitian to discuss what dietary choices are best for you. Summary ? A low-FODMAP eating plan is a short-term diet that eliminates FODMAPs from your diet to help ease symptoms of certain bowel diseases. ? The eating plan usually lasts up to 6 weeks. After that, high-FODMAP foods are restarted gradually, one at a time, so you can find out which may be causing symptoms. ? A low-FODMAP eating plan can be complicated. It is best to work with a dietitian who has experience with this type of plan. This information is not intended to replace advice given to you by your health care provider. Make sure you discuss any questions you have with your health care provider. Document Released: 04/07/2018 Document Revised: 07/24/2018 Document Reviewed: 04/07/2018 [employer] Patient Education ? 2020 [employer]. Diet for Irritable Bowel Syndrome When you have irritable bowel syndrome (IBS), it is very important to eat the foods and follow the eating habits that are best for your condition. IBS may cause various symptoms such as pain in the abdomen, constipation, or diarrhea. Choosing the right foods can help to ease the discomfort from these symptoms. Work with your health care provider and diet and pharmacy informatics specialist (dietitian) to find the eating plan that will help to control your symptoms. What are tips for following this plan? ? Keep a food diary. This will help you identify foods that cause symptoms. Write down: ? What you eat and when you eat it. ? What symptoms you have. ? When symptoms occur in relation to your meals, such as pain in abdomen 2 hours after dinner. ? Eat your meals slowly and in a relaxed setting. ? Aim to eat 5?6 small meals per day. Do not skip meals. ? Drink enough fluid to keep your urine pale yellow. ? Ask your health care provider if you should take an jnze-vmo-czrebjz probiotic to help restore healthy bacteria in your gut (digestive tract). ? Probiotics are foods that contain good bacteria and yeasts. ? Your dietitian may have specific dietary recommendations for you based on your symptoms. He or she may recommend that you: ? Avoid foods that cause symptoms. Talk with your dietitian about other ways to get the same nutrients that are in those problem foods. ? Avoid foods with gluten. Gluten is a protein that is found in rye, wheat, and barley. ? Eat more foods that contain soluble fiber. Examples of foods with high soluble fiber include oats, seeds, and certain fruits and vegetables. Take a fiber supplement if directed by your dietitian. ? Reduce or avoid certain foods called FODMAPs. These are foods that contain carbohydrates that are hard to digest. Ask your doctor which foods contain these carbohydrates. What foods are not recommended? The following are some foods and drinks that may make your symptoms worse: ? Fatty foods, such as mozambican fries. ? Foods that contain gluten, such as pasta and cereal. ? Dairy products, such as milk, cheese, and ice cream. ? Chocolate. ? Alcohol. ? Products with caffeine, such as coffee. ? Carbonated drinks, such as soda. ? Foods that are high in FODMAPs. These include certain fruits and vegetables. ? Products with sweeteners such as honey, high fructose corn syrup, sorbitol, and mannitol. The items listed above may not be a complete list of foods and beverages you should avoid. Contact a dietitian for more information. What foods are good sources of fiber? Your health care provider or dietitian may recommend that you eat more foods that contain fiber. Fiber can help to reduce constipation and other IBS symptoms. Add foods with fiber to your diet a little at a time so your body can get used to them. Too much fiber at one time might cause gas and swelling of your abdomen. The following are some foods that are good sources of fiber: ? Berries, such as raspberries, strawberries, and blueberries. ? Tomatoes. ? Carrots. ? Brown rice. ? Oats. ? Seeds, such as darrian and pumpkin seeds. The items listed above may not be a complete list of recommended sources of fiber. Contact your dietitian for more options. Where to find more information ? International Foundation for Functional Gastrointestinal Disorders: www.iffgd.org ? National [place] of Diabetes and Digestive and Kidney Diseases: www.niddk.nih.gov Summary ? When you have irritable bowel syndrome (IBS), it is very important to eat the foods and follow the eating habits that are best for your condition. ? IBS may cause various symptoms such as pain in the abdomen, constipation, or diarrhea. ? Choosing the right foods can help to ease the discomfort that comes from symptoms. ? Keep a food diary. This will help you identify foods that cause symptoms. ? Your health care provider or diet and pharmacy informatics specialist (dietitian) may recommend that you eat more foods that contain fiber. This information is not intended to replace advice given to you by your health care provider. Make sure you discuss any questions you have with your health care provider. Document Released: 10/31/2004 Document Revised: 12/01/2019 Document Reviewed: 04/14/2018 [employer] Patient Education ? 2019 [employer] Normal [facility] RAD - Preliminary Cat Scan R eporton 08-23-2020 RAD - Preliminary Cat Scan Report [id number] 0CD:127 Normal [facility] U Drug Screenon 08-23-2020 Opiates Screen Ql (U) Positive Abnormal Negative [facility] Comment on above: Result Comment: No c onfirmation requested by Physican\Results verified by repeat analysis\Unconfirmed by alternate method\Critical Result UD_OPIA:POS Called to BEL ESTRADA AT ER by GILSON PALMA And Read Back For Confirmation at: 08/23/2020 07:57:24 Negative Cutoff: <300 ng/mL Performed By: #### 2 [id number] ####[facility] [address] [place] [address] Amphetamines Screen method >1000 ng/mL Ql (U) Negative Normal Negative [facility] Comment on above: Result Comment: Nega tive Cutoff: <1000 ng/mL Performed By: #### 2 836141 ####[facility] [address] [place] [address] Barbiturates Screen Ql (U) Negative Normal Negative [facility] Comment on above: Result Comment: Nega tive Cutoff: <200 ng/mL Performed By: #### 2 767045 ####[facility] [address] [place] [address] Benzodiazepines Ql (U) Negative Normal Negative [facility] Comment on above: Result Comment: Nega tive Cutoff: <200 ng/mL Performed By: #### 2 585472 ####[address] [place] [address] Cocaine Ql (U) Negative Normal Negative [facility] Comment on above: Result Comment: Nega tive Cutoff: <300 ng/mL Performed By: #### 2 985269 ####[address] [address] Phencyclidine Screen method >25 ng/mL Ql (U) Negative Normal Negative [facility] Comment on above: Result Comment: Nega tive Cutoff: <25 ng/mL These drug screen results are to be used for medical (i.e., treatment) purposes only. Unconfirmed drug screening results must not be used for non-medical purposes (e.g., employment testing, legal testing). Performed By: #### 2 938390 ####[address] [address] Tetrahydrocannabinol Screen method >50 ng/mL Ql (U) Negative Normal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 up hospital discharge transportation when medically cleared. AVRIL will remain available if additional needs arise. SIGNATURE: VERN Clark PATIENT NAME: Mary Paniagua DATE: November 22, 2019 TIME: 2:28 PM PAGER/CONTACT #: [phone] [facility] CASE MGT INIT CARMINAon 2019 CASE MGT INIT [facility] HNO ID: [id number] Author: Shama Huggins (Sw) Service: ? Author Type: Transfer Operator Type: Care Mgt Initial Assessment Filed: 11/22/2019 11:17 AM Note Text: CARE MANAGEMENT: ASSESSMENT AND DISCHARGE PLAN SERVICE DATE: November 22, 2019 SERVICE TIME: 9:53 AM PRIMARY CARE PHYSICIAN: No primary care provider on file. Phone: None ADMISSION STATUS: Inpatient Needs Prior to Discharge: None MEDICAL: [facility] MEDICAID Patient/Sh[employer]eler Stated Goals: To return home to life as it was Health Insurance: [facility] Health Issues Impacting Discharge Plan: None Last Discharge Date: N/A Is this Within the Past 30 days? Last discharge within 30 days: Yes Is this a planned readmission?: Yes Advance Directive: Health LiteracyHow often do you need to have someone help you when you read instructions, pamphlets, or other written material from your doctor or pharmacy? : 1 - Never How confident are you filling out medical forms by yourself?: 1 - Extremely If Patient scores > 3 on either question, the following interventions were put into place:: Patient did not score > 3 on either question. Baseline Mental Status Prior to this Illness what was the patient's Baseline Mental Status?: Alert AND Oriented Prior to this illness, has anyone described the patient having any of the following behaviors?: Not Applicable Relationship of the informant to the patient:: Self Functional Status: Independent Does Patient Currently Receive Any Community Services or Home Care?: Counseling Equipment Prior to Admission: None SOCIAL: Living Arrangements: Home Lives With: Son Financial Resources: UnemployedPrimary Contact: No emergency contact information on file. Supportive Patient Contact:: Yes Social Needs Food insecurity Worry: Sometimes true Inability: Sometimes true Finances Resources Needed: No Social Needs Financial resource strain: Hard Social Needs Transportation needs Medical: No Non-medical: No Caregiver AssessmentCaregiver is ready, willing and able to meet the patient's needs as recommended by the inter-professional team:: No Caregiver needed Does the patient have an acute stroke diagnosis, or has the patient had a stroke during this admission?: No Patient's transition needs and plan for meeting these needs: Pt to d/c home Patient's perception of need for this admission: to deliver baby Medication Adherance I am convinced of the importance of my prescription medication: 0 - Agree Completely I worry that my prescription medication will do more harm than good to me : 0 - Disagree Completely I feel financially burdened by my [id number] expenses for my prescription medication:: 0 - Disagree Completely Risk Score: 0 Patient is categorized as: Low risk < 2 Are you interested in bedside delivery of your medications? No Is Patient Psychosocially Complex?: Yes, refer to Social Work ASSESSMENT AND PLAN: Medical Needs: Medical Needs: None Psychosocial Needs: Psychosocial Needs: Mental Health Diagnosis;Chemical Dependency;History of Trauma;Food Insecurity Mental Health Information: Hx of Anxiety and Depression, SI within the last month Drug of Choice: Crack Cocaine Treatment: Rehab;Counseling FREEDOM OF CHOICE EXPLAINED: [place] of Choice Given: No Reason Not Given: No placements necessary POTENTIAL TRANSITION PLANS Home;Other: See Comment(Pt will monitor for s/s of PPD-will continue to follow up with current providers through [facility]. ) Pt is a 34 year old s/p vaginal delivery of baby boy, Irineo Campbell, on 11/21/19. SW consult ordered d/t Pt Hx of mental health conditions and recent SI. SW met with Pt at the bedside, explained SW role, Pt agreeable to assessment. Pt currently with sitter in the room. Pt presented with full affect, tearful at times, but cooperative and open with SW. Pt reported the following: She currently is living in [place] with her 8 year old son, Jovan, and her with whom she is currently x4 years. Pt has a 16 year old daughter who lives with her father in [place]. Pt's is not the FOB. FOB is Garth Alamo, he and Pt are not in a relationship, he does not plan to be involved with the baby. Pt plans to establish paternity and file for child support. Pt lost her job at [employer] in August d/t missed work from health/ complications. She is currently linked with WIC, Section 8, and Medicaid. She previously lost food stamps, has re-applied but missed her phone interview so she needs to reschedule. In the mean time, Pt utilizes free school meals, food pantries, and hot meals at local churches. She also receives financial support from her father. Pt stated she has some supplies for baby-her aunt purchased her a pack 'n play portable crib and will have it to Pt by the time Pt returns home. Pt has a good support system with her father, aunt, and mother as well as sober supports from her substance abuse Tx program and [facility]. Pt reported that she was addicted to Crack Cocaine about four years ago and went into treatment at [facility] by the [employer] from August 2016-January 2017. Pt has been sober since starting her Tx program. Pt received three tox screens during her on 05/10/19 (pain panel), 07/16/19 (pain panel), and 11/19/19 (utox), all of which were negative. Pt also had involvement with [facility] and her son was in foster care while Pt was in [place]. Pt stated her son was returned to her care in November 2016 and the children's services case was closed March 2017. During this time, Pt's daughter was placed in the custody of her daughter's father and she has remained there since. Pt conformed a Hx of mental health conditions including Anxiety and Depression with Hx of self harm in her early teens. With regard to Pt's recent SI, Pt reported that about three weeks ago she was in considerable abdominal pain. She was overwhelmed and frustrated by her pain and wished to to end the pain. Pt did not actively wish to end her life, and she has no plans or intentions to do so at this time. Pt also had d/c'd her usual psych medication (Effexor) d/t the and had started Zoloft and was experiencing unpleasant side effects. Pt worked with her PCP, Mannie Martin of [facility], who prescribed Pt Lexapro with good effect. Pt reports she has been feeling much better since starting Lexapro. Pt noted she is also linked with a community mental health casework specialist through [facility] who is working on getting Pt linked with Psychiatry there as well. Pt currently engaged in phone meetings with her casework specialist 2x week d/t COVID-19 social distancing requirements. Pt feels well supported by her casework specialist and will continue with her post . Her next appointment/phone call with her casework specialist is scheduled for tomorrow at 10:30. She will resume in-person meetings with her once she is able. Pt has several protective factors including future orientation and sense of responsibility for the care of her children. She is resourceful and linked with outpatient behavioral support. Pt does have access to a car seat for car seat challenge. Pt's is on his way to drop off the car seat, but due to COVID-19 restrictions, is unable to stay at the hospital until the challenge is complete. He, at this point, is saying he is unwilling to leave and come back to pharmacy picking technician Pt. SW will coordinate transportation home for Pt. Pt reports no additional needs at this time, SW will remain available if needs arise. SIGNATURE: VERN Clark PATIENT NAME: Mary Paniagua DATE: November 22, 2019 TIME: 9:53 AM PAGER/CONTACT #: [phone] [facility] PLAN OF CAREon 11-22-2019 PLAN OF CARE HNO ID: [id number] Author: Korin Simeon (Rocket Assembly Operator) Service: ? Author Type: ? Type: Plan of Care Filed: 11/22/2019 12:55 PM Note Text: PHARMACY BEDSIDE DELIVERY SERVICE Patient Name: Mary Paniagua The marked outpatient medications were Filled at: [facility] and delivered to the patient's bedside to delivered 3 scripts to room 3s 16 Medication List START taking these medications acetaminophen 325 mg tablet x Commonly known as: TYLENOL Take 2 tablets by mouth every 6 hours as needed. Blood Pressure Test Kit-Large Kit x Commonly known as: Quick Response BP Monitor 1 Each one time only for 1 dose. docusate sodium 100 mg capsule x Commonly known as: COLACE Take 2 capsules by mouth daily at bedtime. CONTINUE taking these medications albuterol HFA 90 mcg/actuation inhaler Commonly known as: PROVENTIL HFA, VENTOLIN HFA BentyL 10 mg capsule Generic drug: dicyclomine escitalopram oxalate 10 mg tablet Commonly known as: LEXAPRO montelukast 10 mg tablet Commonly known as: SINGULAIR pantoprazole DR 40 mg tablet Commonly known as: PROTONIX You might also be taking other medications not listed above. If you have questions about any of your other medications, talk to the person who prescribed them or your Primary Care Provider. Korin Simeon (Cameo) PAGER: [phone] November 22, 2019 12:54 PM [facility] PLAN CARE HNO ID: [id number] Author: Korin Simeon (Cameo) Service: ? Author Type: ? Type: Plan of Care Filed: 11/22/2019 10:26 AM Note Text: Pharmacy Discharge Medication Service: This patient has elected to receive their discharge prescriptions through the [facility] Bedside Prescription Delivery program. The prescriptions are currently being processed. A follow-up note will be entered once the prescriptions have been filled and delivered to the patient. Please contact me with any questions or updates to the patient's discharge medications. Korin Simeon (Cameo) DCT Contact Info: [id number] [facility] CARE HNO ID: [id number] Author: Korin Simeon (Cameo) Service: ? Author Type: ? Type: Plan of Care Filed: 11/22/2019 10:26 AM Note Text: SALES ADMINISTRATOR BEDSIDE DELIVERY SURVEY 1. Patient to use [facility] Bedside Delivery - YES Insurance Information as follows: 2. Insurance card on file - YES 3. Credit card for payment - N/A Patient has no prescriptions yet. Please page [phone] upon discharge. [facility] PROGRESSon 11-22-2019 PROGRESS HNO ID: [id number] Author: Mannie Esquivel MD Service: Gynecology Author Type: Resident Type: Progress Notes Filed: 11/22/2019 7:17 AM Note Text: Attestation signed by Vilma Bourne at 11/22/2019 10:44 AM Attending Note I evaluated the patient and personally participated in the [place] components. I agree with the resident's findings and plan as documented and have discussed the case and management of the patient's care with the resident. Plan of care discussed with: Provider, RN, Patient. D/c today Signature: Vilma Bourne MD Date: November 22, 2019 Time: 10:44 AM OBSTETRICS PROGRESS NOTE SERVICE DATE: November 22, 2019 SERVICE TIME: 6:03 AM ASSESSMENT: 34 year old female who is Day #1 status post Vaginal, Spontaneous delivery with male complicated by pre-eclampsia with severe features by BP criteria. PLAN: 1. Routine care -Rh+, rubella immune -: no, bottle -BC: tubal sterilization, no papers signed. Plans on 6wk interval IUD -Anticipate discharge PPD2/3 -Discharge instructions given to patient regarding pelvic rest, bathing, stairs, walking, lifting, driving, and follow-up. Patient expresses understanding. 2. Pre-eclampsia with severe features by blood pressure criteria -BPs normotensive -Asymptomatic -Adequate UOP -S/p IV magnesium x24hrs (ended 11/21 0400) -Last IV med: labetalol 40mg IV 11/20 0553 -Continue PO labetalol 200mg q12hrs -CBC/CMP wnl -Will need BP check 3-5 days following discharge 3. Respiratory/GI complaints -On admission, symptoms now improved -Influenza negative. ?COVID-19?negative. 4. GDMA1 -Will need 2hr GTT PP 5. Asthma - Albuterol inhaler PRN. 6. Anxiety, suicidal ideation -Continue Lexapro -Follows with outpatient psychiatry -SW consult -Sitter in room 7. Abdominal pain -Previous w/u neg, follows with outpatient GI -Resolved after delivery. -S/p EGD 2018, hx IBS/peptic ulcer -Home protonix BID, carafate SUBJECTIVE: Patient has no current complaints. Tolerating PO intake. Passing flatus. Pain well controlled with current regimen. Lochia decreasing. Lopez removed, has not yet tried urinating/ambulating. Denies [place], dyspnea, chest pain, vision changes, RUQ pain, edema. OBJECTIVE: PHYSICAL EXAM: Heart: RR, S1, S2 Lungs: clear to auscultation Abdomen: Soft Fundus firm below umbilicus Non-distended Extremities: No calf tenderness and trace edema LAST VITALS: Pulse BP Resp O2 Sat Temp Pain 71 116/77 16 95 % 36.5 ?C (97.7 ?F) 0 Avg Min Max Vitals (last 12 hours) Flowsheet Row Name Average Min Max BP: Systolic 112.90 106 123 BP: Diastolic 69 60 77 Temp 36.7 ?C (98 ?F) 36.5 ?C (97.7 ?F) 36.8 ?C (98.2 ?F) Pulse 71.5 64 78 Resp 16.38 14 20 SpO2 97.29 % 95 % 99 % HT/WT/BMI: Height Weight BMI 160 cm (5' 3 ) 77.1 kg (170 lb) 30.11 LABS ABO/RH: 11/20/2019: A POSITIVE RUBELLA: 07/16/2019: immune HANDH: Hematocrit (%) Date Value 11/20/2019 37.4 Hemoglobin (g/dL) Date Value 11/20/2019 12.5 Diagnostic tests reviewed for today's visit: Most recent labs and imaging results. SIGNATURE: Mannie Esquivel MD PATIENT NAME: Mary Paniagua DATE: November 22, 2019 TIME: 6:03 AM [facility] ANES POSTPROC EVALon 020 ANES POSTPROC EVAL HNO ID: [id number] Author: Eligio Casillas Service: ? Author Type: Anesthesiologist Type: Anesthesia Postprocedure Evaluation Filed: 11/21/2019 8:42 AM Note Text: POST ANESTHESIA EVALUATION NOTE : 1985 Procedure Summary Date: 11/20/19 Room / Location: Anesthesia Start: 1929 Anesthesia Stop: 11/21/19325 Procedure: LABOR ANALGESIA Diagnosis: Scheduled Providers: Responsible Provider: Benji Miles Anesthesia Type: epidural ASA Status: 2 Anesthesia Type: epidural Last vitals Vitals Value Taken Time BP 137/75 11/21/2019 8:33 AM Temp 36.5 ?C (97.7 ?F) 11/21/2019 7:00 AM Pulse 71 11/21/2019 8:33 AM HR SpO2 11/21/2019 8:42 AM Resp 20 11/21/2019 8:33 AM SpO2 97 % 11/21/2019 8:33 AM Jerzy Paniagua [[id number]] Please use the [employer]ision [employer] activity in [employer] to make print groups. Contact your senior technical project manager for more information. Post Anesthesia Patient Status Patient Evaluation: bedside. Anticipated Disposition: inpatient floor planned admission. Neurological Status: aware and responsive. Pulmonary Status: breathing comfortably on room air . Airway Control: returned to baseline unsupported. Cardiovascular Status: stable. Pain Management: clinically adequate. - multimodal analgesia pain management approach Postoperative Hydration: acceptable. Intraoperative Events: no significant anesthesia events Anesthetic Observations: no significant anesthetic observations Recommendation: continue current plan of care. SIGNATURE: Eligio Casillas DO PATIENT NAME: Mary Paniagua DATE: November 21, 2019 TIME: 8:42 AM CSN: [id number] Normal [facility] Blood Gases,Cord,Art (For [facility] and [facility])on 11-21-2019 Base Deficit 7.4 mmol/L Normal 4.4-8.3 [facility] Comment on above: Performed By: #### C BCDIF, CMP #### [phone] HCO3 (Bld) [Moles/Vol] 21 mmol/L Normal 17-27 [facility] Comment on above: Performed By: #### C BCDIF, CMP #### [place] [phone] Oxygen (Bld) [Partial pressure] mm[Hg] High 5.5-30.5 [facility] Comment on above: Performed By: #### C BCDIF, CMP #### [place] [phone] pCO2 53 mm Hg Normal 32-66 [facility] Comment on above: Performed By: #### C BCDIF, CMP #### [place] [phone] pH (Bld) 7.22 [pH] Normal 7.18-7.38 [facility] Comment on above: Performed By: #### C STEVEN, [facility] #### [facility] [address] [place] [phone] LD NOTEon 11-21-2019 LD NOTE HNO ID: [id number] Author: Skyla Claudio Service: Obstetrics Author Type: Physician Type: LANDD Delivery Note Filed: 11/21/2019 4:27 AM Note Text: OBSTETRICS DELIVERY SUMMARY - VAGINAL DELIVERY Gestational Age at Delivery: 36w1d Service Date: 11/21/2019 Service Time: 4:24 AM PaniaguaJerzy [[id number]] Labor Events Rupture Date: 11/21/19 Rupture Time: 106 Rupture Type: SROM Fluid Color: Blood Tinged Induction: Yes Induction Method: AROM, Lopez Bulb Catheter, Oxytocin Episiotomy/Laceration: Episiotomy: None Lacerations: None Delivery Blood Loss: Estimated Blood Loss (mL): 300 Total Delivery Blood Loss (mL): 300 Date and Time of : Date of : 11/21/19 Time of : 0326 Delivery Information: Primary Reason for Delivery : Hypertension Additional Clinicial Indicator(s) for delivery: N/A Delivery type: Vaginal, Spontaneous Presentation: Vertex Shoulder Dystocia Present: No Vacuum Used: No Forceps Used: No Presentation AND Position Presentation: Vertex Position: OA Cord: Complications: None Delayed Cord Clamping: No Placenta: Delivered: 11/21/2019 3:35 AM Removal: Spontaneous Appearance: Intact Anesthesia: Method: Epidural Measurements, Apgars: Weight: 5 lb 8.4 oz Weight (gms): 2506 g One Minute : 9 Five Minute : 9 Code Eckley Called: Yes Type of Code Eckley Team Needed: Planned Resuscitation Needed: No, see Peds Delivery Attendance Note/Progress Note 34 year old 36w1d induction of labor for preeclampsia with severe features, PUI for COVID-19 transferred from [facility]. Induction of labor with normal progression and short second stage. Vigorous . Placenta spontaneous and intact. No lacerations. A digital sweep of the vaginal canal was performed by Skyla Claudio MD and it was ascertained that no instruments or other foreign bodies are retained within the cavity. Sponge, lap, and needle counts were correct times two. Mother and baby are stable and bonding and skin to skin. No qualified resident was available to participate in this delivery. SIGNATURE: Skyla Claudio MD PATIENT NAME: Mary Paniagua DATE: November 21, 2019 TIME: 4:24 AM [facility] NURSING PROGon 11-21-2019 NURSING PROG HNO ID: [id number] Author: Rosario (Rn) CECILE Aiken Service: Obstetrics Author Type: Registered Nurse Type: Nursing Progress Note Filed: 11/21/2019 1:09 PM Note Text: Nursing Progress Note Patient Name: Mary Paniagua [id number] Called to room by sitter; pt having 10/10 epigastric pain; anxiety elevated. Pt stated she was diagnosed with IBS, Colitis and peptic ulcer. Bentyl restarted. Resident called to see pt. Regarding pain control AND anxiety. In unit; will come see pt. This note was completed by: Rosario Aiken RN [facility] PROGRESSon 11-21-2019 PROGRESS HNO ID: [id number] Author: Bel Hernandes Service: ? Author Type: Physician Type: Progress Notes Filed: 11/21/2019 6:00 PM Note Text: OBSTETRICS PROGRESS NOTE SERVICE DATE: November 21, 2019 SERVICE TIME: late entry from 1300 ASSESSMENT: 34 year old female who is Day #0 status post Vaginal, Spontaneous delivery with male . Course complicated by severe pre-eclampsia. BP currently stable on labetalol. On magnesium x 24 hours pp. No s/s of mag toxicity. UOP excellent. Suicidal ideation: ongoing since her current psychiatrist had started her on zoloft 1 month ago and then stopped 1 wk later and has been on lexapro since. No new ideations or concerns. No plan. Has a sitter. Reviewed with patient her concerns. Has appt with her counseler twice weekly on /. Will have SW see patient and then if deemed necessary can consider psych consult tomorrow, however pt is in agreement this is stable and likely better to continue care with her current team. Utility is low for additional treatment or change in plans per psych consult at this time. However will monitor situation closely and call psych if deemed necessary. Asthma-stable. On adm SOB and multiple complaints including GI, so had flu/covid swabs that were negative. Chronic abdominal/epigastric pain- has GI MD Dr. Jeffery. EGD 2018. Hx of IBS, peptic ulcer. Currently describing epigastric pain, always there, but just exacerbated since her n/v that started on . No further N/V since yesterday. Takes protonix BID. At this time, no need for urgent GI consult. Will add carafate and have pt call her GI doc tomorrow to see if they have other recs or can schedule virtual visit for follow-up. Depression/anxiety-cur rently on lexapro, happy with it. Likes better than zoloft. Desires to continue close f/u with her current psych outpatient team and will discuss with them option of adding anxiolytic such as buspar. PLAN: Routine care. Encourage ambulation and IS usage. Continue mag x 24 hours. Vitals currently stable on PO labetalol Monitor I/O Overall stable at this time Continue sitter SW consult SUBJECTIVE: Patient has no current complaints. Tolerating PO intake. Urinating without difficulty. Passing flatus. Pain well controlled with current regimen. Lochia decreasing. OBJECTIVE: PHYSICAL EXAM: +epigastric tenderness on palpation. No e/o surgical abdomen. Abdomen: Soft Fundus firm below umbilicus Non-distended Extremities: No calf tenderness and Edema equal bilaterally LAST VITALS: Pulse BP Resp O2 Sat Temp Pain 72 122/74 20 97 % 36.8 ?C (98.2 ?F) 1 Avg Min Max Vitals (last 12 hours) Flowsheet Row Name Average Min Max BP: Systolic 142.37 118 (!) 170 BP: Diastolic 83.26 71 96 Temp 36.7 ?C (98.03 ?F) 36.5 ?C (97.7 ?F) 36.8 ?C (98.2 ?F) Pulse 75.52 70 81 Resp 19.6 18 20 SpO2 97.8 % 95 % 100 % HT/WT/BMI: Height Weight BMI 160 cm (5' 3 ) 77.1 kg (170 lb) 30.11 LABS ABO/RH: 11/20/2019: A POSITIVE RUBELLA: 07/16/2019: immune HANDH: Hematocrit (%) Date Value 11/20/2019 37.4 Hemoglobin (g/dL) Date Value 11/20/2019 12.5 Diagnostic tests reviewed for today's visit: No new labs SIGNATURE: Bel Hernandes MD PATIENT NAME: Mary Paniagua DATE: November 21, 2019 TIME: 5:50 PM [facility] PROGRESS HNO ID: [id number] Author: Sklya Claudio Service: Obstetrics Author Type: Physician Type: Progress Notes Filed: 11/21/2019 6:34 AM Note Text: Persistent severe range BP requiring IV antihypertensive. Patient feels well and is without complaint. Denies STRICKLAND, denies abdominal pain. Status post IV labetalol 20 mg, then 40 mg. PO labetalol 200 mg Q 12 hours ordered. Magnesium begun for seizure prophylaxis, plan to continue for 24 hours post delivery. Skyla Claudio MD [facility] PROGRESS HNO ID: [id number] Author: Skyla Claudio Service: Obstetrics Author Type: Physician Type: Progress Notes Filed: 11/21/2019 4:43 AM Note Text: COVID-19 result negative. Will discontinue precautions. Routine PP care for preeclampsia. Skyla Claudio MD [facility] PROGRESS HNO ID: [id number] Author: Skyla Claudio Service: Obstetrics Author Type: Physician Type: Progress Notes Filed: 11/21/2019 1:27 AM Note Text: OBSTETRICS INTRAPARTUM PROGRESS NOTE SERVICE DATE: November 21, 2019 SERVICE TIME: 1:20 AM Subjective Patient reports feeling some pressure, no other complaints. Denies STRICLKAND, SOB, CP. Abdominal pain improved with epidural. Objective Temp Min/Max Last 12 Hrs Pre Delivery: Temp Min: 37 ?C (98.6 ?F) Min taken time: 11/20/191751 Max: 37.2 ?C (99 ?F) Max taken time: 11/20/192014 Last Pulse/Resp/O2/Temp: Pulse Resp O2 Sat Temp 77 18 96 % 37.1 ?C (98.8 ?F) BP Trend (last 4 values) 11/20/19 2307 11/20/19 2336 11/21/19 0007 11/21/19 0037 BP: 133/72 122/58 132/67 125/62 Pain Score Trend (last 4 values) 11/20/19199911/20/19 2100 11/20/19 2303 11/21/19 0000 Pain Level: 0 4 4 2 PHYSICAL EXAM: General: NAD Cervical Exam Trend (last 4 values) 11/20/19 1745 11/20/192047 Dilation: 1.5 4 Effacement (%): 60 60 Station: -3 -3 Presentation: Vertex Membranes: Total ROM Time: rupture date or rupture time have not been documented Additional Findings: AROM performed during this exam. Head well applied to cervix. heart tones reassuring before and after procedure. Monitoring: Baseline: 120 Variability: Moderate (6-25 bpm) Accelerations: Present Decelerations: None Contractions: Regular Frequency: Every 2 minutes NST Interpretation: Labs: Diagnostic tests reviewed for today's visit: Most recent labs . COVID-19 test pending. Assessment/Plan 34 year old EGA:36w1d. Admitted for induction of labor for preeclampsia with severe features by BP.. FHR Category: Category I Patient Active Hospital Problem List: Preeclampsia, severe, third trimester (11/20/2019) Preeclampsia-- patient asymptomatic, BP mostly normal range since epidural placement. Continue labor induction. Magnesium held pending COVID-19 test result. Respiratory and GI symptoms- improved at this time. Awaiting COVID-19 test result Continue precautions. Anxiety/depression with suicidal ideation. Patient improved with pain relief from epidural. Plan continue Lexapro, psychiatry consult PP. Continuous accompaniment. GDMA1 s/p BMZ dose on 11/18. Continue BS and SSI. AROM performed s/p second dose PCN for GBS unknown. Continue present management. Plan of care discussed with: Provider, RN, Patient. SIGNATURE: Skyla Claudio MD PATIENT NAME: Mary Paniagua DATE: November 21, 2019 TIME: 1:20 AM PAGER/CONTACT #: Normal [facility] Urinalysis with Microscopico n 11-21-2019 Bacteria LM.HPF (Urine sed) [#/Area] Rare Critically abnormal Negative [facility] Comment on above: Performed By: #### U AWMIC #### [place] [address] Bilirubin, Urine Negative Normal Negative [facility] Comment on above: Performed By: #### U AWMIC #### [place] [address] Clarity (U) Hazy Critically abnormal Clear [facility] Comment on above: Performed By: #### U AWMIC #### [place] [address] Color (U) Yellow Normal Yellow [facility] Comment on above: Performed By: #### U AWMIC #### [place] [address] Comments SEE COMMENT Normal [facility] Comment on above: Result Comment: Micr oscopic Examination Performed Performed By: #### U AWMIC #### [place] [address] Epithelial cells LM.HPF (Urine sed) [#/Area] SEE COMMENT Critically abnormal Negative [facility] Comment on above: Result Comment: Rare Squamous Epithelial Cells Performed By: #### U AWMIC #### [place] [address] Glucose Ql (U) Negative Normal [facility] Comment on above: Performed By: #### U AWMIC #### [place] [address] Hemoglobin/Blood,Ur Large Critically abnormal Negative [facility] Comment on above: Performed By: #### U AWMIC #### [place] [phone] Ketones Ql (U) 80 Critically abnormal Negative [facility] Comment on above: Performed By: #### U AWMIC #### [place] [phone] Leukest Negative Normal [facility] Comment on above: Performed By: #### U AWMIC #### [place] [phone] Mucus Ql (Urine sed) Present Normal [facility] Comment on above: Performed By: #### U AWMIC #### [place] [phone] Nitrite Ql (U) Negative Normal [facility] Comment on above: Performed By: #### U AWMIC #### [place] [phone] pH (Bld) 5.0 Normal 5.0-8.0 [facility] Comment on above: Performed By: #### U AWMIC #### [place] [phone] Protein (U) [Mass/Vol] Negative Normal Negative [facility] Comment on above: Performed By: #### U AWMIC #### [place] [phone] RBC (U) [#/Vol] Many Critically abnormal Negative [facility] Comment on above: Performed By: #### U AWMIC #### [place] [phone] Specific [place], Ur 1.014 Normal 1.005-1.030 [facility] Comment on above: Performed By: #### U AWMIC #### [place] [phone] Urobilinogen Qn (U) <2.0 Normal <2.0 [facility] Comment on above: Performed By: #### U AWMIC #### [place] [phone] WBC (Bld) [#/Vol] Rare Critically abnormal Negative [facility] Comment on above: Performed By: #### U AWMIC #### [place] [phone] Urine Cultureon 11-21-2019 Bacteria identified Cx Nom (U) Sp. Request/Comment: - Specimen received in preservative Culture Result - No growth (<100 CFU/ml) Normal [facility] Comment on above: Performed By: #### P RATIO #### [facility] [address] [place] [address] ANES PRE-OPon 11-20-2019 ANES PRE-OP HNO ID: [id number] Author: Jose West) MAXIMO Cline.CURATORIAL SPECIALIST Service: ? Author Type: Nurse Client Success Director Type: Anesthesia Preprocedure Evaluation Filed: 11/20/2019 8:09 PM Note Text: OB ANESTHESIA PRE-PROCEDURE ASSESSMENT PATIENT NAME: Mary Paniagua : 1985 Pt is a 34yo with EGA of 36w0d who presents in labor from [facility]. Had Previous Epidural today from [facility] and removed prior to transport. Pt stated no issues with Placement and stated that the epidural worked for her prior to removal. 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 Tracheostomy tube not present Mallampati: III. TM distance: >3 FB. Neck ROM: full ROM without neurological symptoms. Mouth opening: adequate. Short neck: no. Thick neck: no DENTAL Normal dental observations. Additional exam findings: yes. CARDIOVASCULAR Peripheral edema: peripheral edema present. PULMONARY Additional comments: History of Asthma. Last used inhaler last week per patient. Not currently feeling SOB or having any difficulty breathing. Pt is a current smoker . ABDOMINAL Obese: obesity present. BACK Additional back findings comments:Insertion site from Previous epidural placement appears to be at the L4-5 interspace. No bruising or bleeding noted. . II - ANESTHESIA PLAN ASA Score: 2 Anesthetic Plan: epidural The patient is a current smoker. NPO Status: inadequate (Clear liquids at bedside. ) Monitoring plan: standard ASA. Postoperative analgesic plan: parenteral or oral opioids, multimodal analgesia and per surgical service. Anesthetic Risks, Benefits, Alternatives, Personnel Discussed. Consent obtained from: patient. Patient / Surrogate agrees to blood products: Yes Potential Anesthesia issues that may suggest increased risk of complications or contractions to planned procedure: none. EPIC CHART REVIEW: ACTIVE PROBLEM LIST Preeclampsia, Severe, Third Trimester PAST MEDICAL HISTORY Diagnosis Date - Anxiety and depression - Asthma - Genital herpes - Gestational diabetes PAST SURGICAL HISTORY Procedure Laterality Date - CARPAL TUNNEL 2014 - COLONOSCOPY 2017 - DENTAL SURGERY PROCEDURE wisdom teeth - DILATION AND CURRETAGE 2010 - EGD 2017 No family history on file. Social History Tobacco Use - Smoking status: Current Every Day Smoker Packs/day: 1.00 Years: 20.00 Pack years: 20.00 Types: Cigarettes Substance Use Topics - Alcohol use: Not Currently - Drug use: Not Currently albuterol HFA (PROVENTIL HFA, VENTOLIN HFA) 90 mcg/actuation inhaler, Inhale 2 Puffs as instructed every 4 hours as needed., Disp: , Rfl: escitalopram oxalate (LEXAPRO) 10 mg tablet, Take 10 mg by mouth once daily., Disp: , Rfl: montelukast (SINGULAIR) 10 mg tablet, Take 10 mg by mouth once daily., Disp: , Rfl: pantoprazole DR (PROTONIX) 40 mg tablet, Take 40 mg by mouth once daily., Disp: , Rfl: Inpatient medications reviewed in EPIC I have interviewed and examined the patient. I have reviewed the medical record and/or the pre-anesthesia evaluation, pertinent labs, and test results. This contains updated information obtained within 48 hours of Surgery/Procedure. SIGNATURE: Jose Cline CRNA PATIENT NAME: Mary Paniagua DATE: November 20, 2019 TIME: 8:02 PM : 1985 Normal [facility] CBC With Platelet and Differ entialon 11-20-2019 Basophils (Bld) [#/Vol] 0.1 10*3/uL Normal 0.0-0.2 [facility] Comment on above: Performed By: #### L DH #### [facility] [address] [place] [address] Basophils/100 WBC (Bld) 0.7 % Normal [facility] Comment on above: Performed By: #### L DH #### [facility] [address] [place] [address] Eosinophils (Bld) [#/Vol] 0.0 10*3/uL Normal 0.0-0.7 [facility] Comment on above: Performed By: #### L DH #### [facility] [address] [place] [address] Eosinophils/100 WBC (Bld) 0.0 % Normal [facility] Comment on above: Performed By: #### L DH #### [facility] [address] [place] [address] Erythrocyte distribution width (RBC) [Ratio] 13.3 % Normal 11.5-14.5 [facility] Comment on above: Performed By: #### L DH #### [facility] [address] [place] [address] Hematocrit (Bld) [Volume fraction] 33.7 % Low 37.0-47.0 [facility] Comment on above: Performed By: #### L DH #### [facility] [address] [place] [address] Hemoglobin (Bld) [Mass/Vol] 11.3 g/dL Low 12.0-16.0 [facility] Comment on above: Performed By: #### L DH #### [facility] [address] [place] [address] Lymphocytes (Bld) [#/Vol] 1.1 10*3/uL Normal 1.0-4.8 [facility] Comment on above: Performed By: #### L DH #### [facility] [address] [place] [address] Lymphocytes/100 WBC (Bld) 7.6 % Normal [facility] Comment on above: Performed By: #### L DH #### [facility] [address] [place] [address] MCH (RBC) [Entitic mass] 29.9 pg Normal 27.0-31.3 [facility] Comment on above: Performed By: #### L DH #### [facility] [address] [place] [address] MCHC (RBC) [Mass/Vol] 33.7 % Normal 33.0-37.0 [facility] Comment on above: Performed By: #### L DH #### [facility] [address] [place] [address] MCV (RBC) [Entitic vol] 88.9 fL Normal 82.0-100.0 [facility] Comment on above: Performed By: #### L DH #### [facility] [address] [place] [address] Monocytes (Bld) [#/Vol] 0.4 10*3/uL Normal 0.2-0.8 [facility] Comment on above: Performed By: #### L DH #### [facility] [address] [place] [address] Monocytes/100 WBC (Bld) 2.6 % Normal [facility] Comment on above: Performed By: #### L DH #### [facility] [address] [place] [address] Neutrophils (Bld) [#/Vol] 12.5 10*3/uL Critically high 1.4-6.5 [facility] Comment on above: Performed By: #### L DH #### [facility] [address] [place] [address] Neutrophils/100 WBC (Bld) 89.1 % Normal [facility] Comment on above: Performed By: #### L DH #### [facility] [address] [place] [address] Platelets (Bld) [#/Vol] 344 10*3/uL Normal 130-400 [facility] Comment on above: Performed By: #### L DH #### [facility] [address] [place] [address] RBC (Bld) [#/Vol] 3.79 10*6/uL Low 4.20-5.40 [facility] Comment on above: Performed By: #### L DH #### [facility] [address] [place] [address] WBC (Bld) [#/Vol] 14.0 10*3/uL Critically high 4.8-10.8 [facility] Comment on above: Performed By: #### L DH #### [facility] [address] [facility] [id number] [phone] CBC and Differentialon 11-19 Abs Baso <0.03 Normal <0.11 [facility] Comment on above: Performed By: #### C BCDIF, CMP #### [place] [phone] Abs [place] 1.18 k/uL High <0.87 [facility] Comment on above: Performed By: #### C BCDIF, CMP #### [place] [phone] Abs Neut 18.44 k/uL High 1.45-7.50 [facility] Comment on above: Performed By: #### C BCDIF, CMP #### [place] [phone] Basophils/100 WBC (Bld) 0.0 % Normal [facility] Comment on above: Performed By: #### C BCDIF, CMP #### [place] [phone] DTYPE Auto Diff Normal [facility] Comment on above: Performed By: #### C BCDIF, CMP #### [place] [phone] Eosinophils (Bld) [#/Vol] 10*3/uL Normal <0.46 [facility] Comment on above: Performed By: #### C BCDIF, CMP #### [place] [phone] Eosinophils/100 WBC (Bld) 0.0 % Normal [facility] Comment on above: Performed By: #### C BCDIF, CMP #### [phone] Erythrocyte distribution width (RBC) [Ratio] 13.7 % Normal 11.5-15.0 [facility] Comment on above: Performed By: #### C BCDIF, CMP #### [place] [phone] Hematocrit (Bld) [Volume fraction] 37.4 % Normal 36.0-46.0 [facility] Comment on above: Performed By: #### C BCDIF, CMP #### [place] [phone] Hemoglobin (Bld) [Mass/Vol] 12.5 g/dL Normal 11.5-15.5 [facility] Comment on above: Performed By: #### C BCDIF, CMP #### [place] [phone] Lymphocytes (Bld) [#/Vol] 1.37 10*3/uL Normal 1.00-4.00 [facility] Comment on above: Performed By: #### C BCDIF, CMP #### [place] [phone] Lymphocytes/100 WBC (Bld) 6.5 % Normal [facility] Comment on above: Performed By: #### C BCDIF, CMP #### [place] [phone] MCH (RBC) [Entitic mass] 30.0 pG Normal 26.0-34.0 [facility] Comment on above: Performed By: #### C BCDIF, CMP #### [place] [phone] MCHC (RBC) [Mass/Vol] 33.4 g/dL Normal 30.5-36.0 [facility] Comment on above: Performed By: #### C BCDIF, CMP #### [place] [phone] MCV (RBC) [Entitic vol] 89.9 fL Normal 80.0-100.0 [facility] Comment on above: Performed By: #### C BCDIF, CMP #### [place] [address] Monocytes/100 WBC (Bld) 5.6 % Normal [facility] Comment on above: Performed By: #### C BCDIF, CMP #### [address] [address] Neutrophils/100 WBC (Bld) 87.9 % Normal [facility] Comment on above: Performed By: #### C BCDIF, CMP #### [place] [address] Platelet mean volume (Bld) [Entitic vol] 10.2 fL Normal 9.0-12.7 [facility] Comment on above: Performed By: #### C BCDIF, CMP #### [place] [address] Platelets (Bld) [#/Vol] 437 10*3/uL High 150-400 [facility] Comment on above: Performed By: #### C BCDIF, CMP #### [place] [phone] RBC (Bld) [#/Vol] 4.16 10*6/uL Normal 3.90-5.20 [facility] Comment on above: Performed By: #### C BCDIF, CMP #### [address] [address] WBC (Bld) [#/Vol] 21.00 10*3/uL High 3.70-11.00 [facility] Comment on above: Performed By: #### C BCDIF, CMP #### [place] [phone] Comp Metabolic Panelon 11-19 Albumin [Mass/Vol] 3.6 g/dL Normal 3.5-5.0 [facility] Comment on above: Performed By: #### C BCDIF, CMP #### [place] [phone] ALP [Catalytic activity/Vol] 134 U/L High 34-123 [facility] Comment on above: Performed By: #### C BCDIF, CMP #### [place] [phone] ALT [Catalytic activity/Vol] 20 U/L Normal 0-45 [facility] Comment on above: Performed By: #### C BCDIF, CMP #### [place] [phone] Anion gap [Moles/Vol] 22 mmol/L High 9-18 [facility] Comment on above: Performed By: #### C BCDIF, CMP #### [place] [phone] AST [Catalytic activity/Vol] 19 U/L Normal 7-40 [facility] Comment on above: Performed By: #### C BCDIF, CMP #### [place] [phone] Bilirubin [Mass/Vol] 0.4 mg/dL Normal 0.2-1.3 [facility] Comment on above: Performed By: #### C BCDIF, CMP #### [place] [phone] Calcium [Mass/Vol] 8.5 mg/dL Normal 8.5-10.5 [facility] Comment on above: Performed By: #### C BCDIF, CMP #### [place] [phone] Chloride [Moles/Vol] 98 mmol/L Normal 98-110 [facility] Comment on above: Performed By: #### C BCDIF, CMP #### [place] [phone] CO2 [Moles/Vol] 12 mmol/L Low 23-32 [facility] Comment on above: Performed By: #### C BCDIF, CMP #### [place] [phone] Creatinine [Mass/Vol] 0.51 mg/dL Low 0.70-1.40 [facility] Comment on above: Performed By: #### C BCDIF, CMP #### [place] [phone] eGFR- Amer. >60 Normal >60 [facility] Comment on above: Performed By: #### C BCDIF, CMP #### [place] [phone] GFR/1.73 sq M predicted among non-blacks MDRD (S/P/Bld) [Vol rate/Area] mL/min/{1.73_m2} Normal >60 [facility] Comment on above: Performed By: #### C BCDIF, CMP #### [place] [phone] Glucose [Mass/Vol] 145 mg/dL High 65-100 [facility] Comment on above: Performed By: #### C BCDIF, CMP #### [place] [phone] Potassium [Moles/Vol] 3.2 mmol/L Low 3.5-5.0 [facility] Comment on above: Performed By: #### C BCDIF, CMP #### [phone] Protein [Mass/Vol] 6.3 g/dL Normal 6.0-8.4 [facility] Comment on above: Performed By: #### C BCDIF, CMP #### [place] [phone] Sodium [Moles/Vol] 132 mmol/L Normal 132-148 [facility] Comment on above: Performed By: #### C BCDIF, CMP #### [place] [phone] Urea nitrogen [Mass/Vol] 4 mg/dL Low 8-25 [facility] Comment on above: Performed By: #### C BCDIF, CMP #### [place] [phone] Comprehensive Metabolic Pane samina 11-20-2019 Albumin [Mass/Vol] 2.9 g/dL Low 3.5-4.6 [facility] Comment on above: Performed By: #### L IPAS #### [facility] [address] [place] [address] ALP [Catalytic activity/Vol] 112 U/L Normal 40-130 [facility] Comment on above: Performed By: #### L IPAS #### [facility] [address] [place] [address] ALT [Catalytic activity/Vol] 13 U/L Normal 0-33 [facility] Comment on above: Performed By: #### L IPAS #### [facility] [address] [place] [address] Anion gap [Moles/Vol] 15 mmol/L Normal 9-15 [facility] Comment on above: Performed By: #### L IPAS #### [facility] [address] [place] [address] AST [Catalytic activity/Vol] 13 U/L Normal 0-35 [facility] Comment on above: Performed By: #### L IPAS #### [facility] [address] [place] [address] Bilirubin [Mass/Vol] 0.3 mg/dL Normal 0.2-0.7 [facility] Comment on above: Performed By: #### L IPAS #### [facility] [address] [place] [address] Calcium [Mass/Vol] 7.8 mg/dL Low 8.5-9.9 [facility] Comment on above: Performed By: #### L IPAS #### [facility] [address] [place] [address] Chloride [Moles/Vol] 102 mmol/L Normal 95-107 [facility] Comment on above: Performed By: #### L IPAS #### [facility] [address] [place] [address] CO2 [Moles/Vol] 16 mmol/L Low 20-31 [facility] Comment on above: Performed By: #### L IPAS #### [facility] [address] [place] [address] Creatinine [Mass/Vol] 0.41 mg/dL Low 0.50-0.90 [facility] Comment on above: Performed By: #### L IPAS #### [facility] [address] [place] [address] GFR/1.73 sq M predicted among blacks MDRD (S/P/Bld) [Vol rate/Area] mL/min/{1.73_m2} Normal >60 [facility] Comment on above: Result Comment: >60 mL/min/1.73m2 EGFR, calc. for ages 18 and older using the MDRD formula (not corrected for weight), is valid for stable renal function. Performed By: #### L IPAS #### [facility] [address] [place] [address] GFR/1.73 sq M.predicted MDRD (S/P/Bld) [Vol rate/Area] mL/min/{1.73_m2} Normal >60 [facility] Comment on above: Result Comment: >60 mL/min/1.73m2 EGFR, calc. for ages 18 and older using the MDRD formula (not corrected for weight), is valid for stable renal function. Performed By: #### L IPAS #### [facility] [address] [place] [address] Globulin (S) [Mass/Vol] 2.8 g/dL Normal 2.3-3.5 [facility] Comment on above: Performed By: #### L IPAS #### [facility] [address] [place] [address] Glucose [Mass/Vol] 123 mg/dL Critically high 70-99 [facility] Comment on above: Performed By: #### L IPAS #### [facility] [address] [place] [address] Potassium [Moles/Vol] 3.4 mmol/L Normal 3.4-4.9 [facility] Comment on above: Performed By: #### L IPAS #### [facility] [address] [place] [address] Protein [Mass/Vol] 5.7 g/dL Low 6.3-8.0 [facility] Comment on above: Performed By: #### L IPAS #### [facility] [address] [place] [address] Sodium [Moles/Vol] 133 mmol/L Low 135-144 [facility] Comment on above: Performed By: #### L IPAS #### [facility] [address] [place] [address] Urea nitrogen [Mass/Vol] 5 mg/dL Low 6-20 [facility] Comment on above: Performed By: #### L IPAS #### [facility] [address] [place] [address] Coronavirus 2019on 0 COVID 19 Result 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 [facility] Comment on above: Result Comment: This test was developed and its performance characteristics determined by [facility] [place]. This test has been authorized by FDA under an Emergency Use Authorization (EUA). This test has been validated in accordance with the FDA's Guidance Document Policy for Diagnostics Testing in Laboratories Certified to Perform High Complexity Testing under CLIA prior to Emergency use Authorization for Coronavirus Disease 2019 during the Public Health Emergency issued on October 23, 2019. Performed By: #### C BCEMIGDIOF, CMP #### [place] [id number] [place] [address] COVID 19 Source SSRS REPORT DEVELOPER Nasopharyngeal Swab Normal [facility] Comment on above: Performed By: #### C BCDIF, CMP #### [place] [address] HISTORY PHYSICALon 0 HISTORY PHYSICAL HNO ID: [id number] Author: Skyla C Kossuth Service: Obstetrics Author Type: Physician Type: HANDP Filed: 11/20/2019 8:44 PM Note Text: OBSTETRICS HISTORY AND PHYSICAL SERVICE DATE: November 20, 2019 SERVICE TIME: 4:44 PM Subjective Patient's stated reason for arrival: CHIEF COMPLAINT: abdominal pain, nausea and vomiting, elevated BP. HISTORY OF THE PRESENT ILLNESS: The patient is a 34 year old female, , who is at 36w0d with an VERONIQUE of Not found. dating method. Patient is here sent as transfer from [facility] where she presented with abdominal pain, N/V/D. RUQ ultrasound was unremarkable. She was suspected to be laboring and was given epidural with improvement of pain. She was given BMZ at [facility] on 11/18 PM. She had watery diarrhea which was sent for C.diff. She has a history of GI complaints and had workup including EGD and colonoscopy in 2018. She was admitted for similar GI complaints in August 2019 at [facility]. She also was noted to have elevated BP with concern for preeclampsia. 24 hour urine collection was begun but not completed prior to transfer. LFT and platelets were normal. She also has complaint of URI symptoms and cough-- uncertain if these are worse than usual and reports 22 pack-year smoking history as well as asthma. She does endorse nasal congestion and mild sore throat. She reports that her breathing feels shallow but denies feeling short of breath at this time. Denies fever. also complicated by gestational diabetes diet controlled for which she received insulin 3 units on 11/18 PM and 2 units on 3 AM. Note of prediabetes prior to this . She also reports anxiety and depression on Lexapro and counseling. She received Ativan x 2 at [facility]. GBS was collected at [facility]. She endorses suicidal ideations. She has asthma, uses Singulair daily and also albuterol inhaler usually daily. Good movement. Denies vaginal bleeding., Denies leaking of fluid. History of bleeding one week after last delivery, requiring emergency DANDC and 2 units PRBC per patient report. POST DELIVERY CONTRACEPTION: Discussed post-delivery contraception options. Patient received written information about post-delivery contraception options. Patient does not desire post-delivery contraception. Plans IUD at 6 week visit. HISTORY REVIEW PAST MEDICAL HISTORY Diagnosis Date - Anxiety and depression - Asthma - Genital herpes - Gestational diabetes PAST SURGICAL HISTORY Procedure Laterality Date - CARPAL TUNNEL 2015 - COLONOSCOPY 2018 - DENTAL SURGERY PROCEDURE wisdom teeth - DILATION AND CURRETAGE 2010 - EGD 2017 No family history on file. Social History Tobacco Use - Smoking status: Current Every Day Smoker Packs/day: 1.00 Years: 20.00 Pack years: 20.00 Types: Cigarettes Substance Use Topics - Alcohol use: Not Currently - Drug use: Not Currently Obstetric History T2 L2 SAB0 TAB0 Ectopic0 Multiple0 Live Births2 Name of Baby 1: Not recorded Date: 09/19/03 GA: Not recorded Delivery: Vaginal, Spontaneous Apgar1: Not recorded Apgar5: Not recorded Living: Living Name of Baby 2: Not recorded Date: 03/02/11 GA: Not recorded Delivery: Vaginal, Spontaneous Apgar1: Not recorded Apgar5: Not recorded Living: Living Name of Baby 3: Not recorded Date: Not recorded GA: Not recorded Delivery: Not recorded Apgar1: Not recorded Apgar5: Not recorded Living: Not recorded There are no active non-hospital problems to display for this patient. ALLERGIES Allergen Reactions - Adhesive Tape (Randa* Rash surgical - Codeine GI Upset None REVIEW OF SYSTEMS: GENERAL: No malaise or fevers. HEENT: See HPI RESPIRATORY: See HPI CARDIOVASCULAR: Negative for chest pain or palpitations. GI: Negative for diarrhea, nausea, vomiting : Negative for dysuria. Negative for recent intercourse. PSYCH: Negative for anxiety or depression NEURO: Negative for headache, weakness. No seizure history Objective LAST VITALS: Pulse BP Resp O2 Sat Temp Pain 86 (!) 163/95 Repeat 158/83 (!) 30 37 ?C (98.6 ?F) 6 HT/WT/BMI: Height Weight BMI 160 cm (5' 3 ) 77.1 kg (170 lb) 30.11 PHYSICAL EXAM: General: uncomfortable HEENT: NC/AT, sclera white Lungs: clear Heart: RR, S1, S2 Abdomen: soft, gravid, diffusely tender, left >right, tender right CVA as well. Uterus: soft, tender diffusely across mid abdomen. Extremities: no edema DTRs: 2+, one beat clonus FHT: 125 bpm (11/20/19 1830 : Nohemy Gipson (Rn) CECILE Blanc) bpm St Spec Exam: No HSV CERVICAL EXAM: Dilation: 1.5 (11/20/191744 : Skyla Claudio) cm Station: -3 (11/20/191744 : Skyla Claudio) Effacement: 60 (11/20/191744 : Skyla Claudio) % Position: Presentation: Vertex (11/20/191744 : Skyla Claudio) Pelvimetry: Pelvimetry clinically assessed as adequate MONITORING/ASSESSMENT: Baseline: Baseline Rate: 125 bpm (11/20/191829 : Nohemy Blanc RN) Variability: Variability: Moderate (6-25 bpm) (11/20/191829 : Nohemy Blanc RN) Accelerations: Accelerations: Present (11/20/191829 : Nohemy Blanc RN) Decelerations: Decelerations: None (11/20/191829 : Nohemy Blanc RN), Decel Frequency: Intermittent (11/20/190 : Mary Gibbons RN) Contractions: Regular (11/20/191829 : Nohemy Blanc RN) Frequency: 2-3 (11/20/191829 : Nohemy Blanc RN) NST Interpretation: Reactive FHR Category: 1 (11/20/191829 : Nohemy Blanc RN) EFW: 6.5-7# based on clinical assessment. ULTRASOUND: US findings: N/A LABS Diagnostic tests reviewed for today's visit: Most recent labs and imaging results. Assessment/Plan 34 year old EGA:36w0d. Transfer from [facility]. Preeclampsia with severe features based on BP. No STRICKLAND, no hyperreflexia. Induction of labor. Will hold magnesium due to concern for possible respiratory compromise. Consider in active labor or PP. Respiratory complaints with GI complaints, ill appearing. Influenza negative. COVID-19 testing in process. Contact and droplet precautions plus eyewear. GDMA1. Received one dose BMZ at [facility]-- will likely reflect in elevated BS during labor. BS check Q 2 hours, SSI ordered. Asthma. No wheezing at this time. Will treat with inhaler as needed. Avoid nebulizer treatment pending COVID-19 testing result. Anxiety, suicidal ideation. Continue Lexapro Psychiatry consult after delivery Sitter to remain with patient. Abdominal pain. This is recurrent for this patient. Unclear etiology. Previous workup without diagnosis per patient knowledge. Anti-emetics, IVF hydration, analgesia. C.diff pending from [facility]. Will evaluate further after delivery if continued symptoms. IOL-- Dating c/w 9 week ultrasound. FHR is category 1 (no variable appreciated). No recent US for growth, clinically 7# but limited d/t patient body habitus. GBS unknown-- specimen collected at [facility]. PCN for GBS prophylaxis. Patient desires TL but no Medicaid consent signed. Discussed IUD which patient would prefer at 6 week PPV. Cervical ripening balloon and oxytocin for labor induction. Early epidural placement for pain management and per COVID-19 safety recommendation to avoid general anesthesia. History of PPH- clinically c/w retained tissue. Will treat as high risk at delivery. Plan of care discussed with: Provider, RN, Patient. SIGNATURE: Skyla Claudio MD PATIENT NAME: Mary Paniagua DATE: November 20, 2019 TIME: 4:44 PM PAGER/CONTACT #: [facility] POCT Glucoseon 11-20-2019 Glucose [Mass/Vol] 128 mg/dL Critically high 60-115 [facility] Comment on above: Performed By: #### L DH #### [facility] [address] [place] [address] POC Performed on ACCU-CHEK [facility] Comment on above: Performed By: #### L DH #### [facility] [address] [place] [address] Glucose [Mass/Vol] 122 mg/dL Critically high 60-115 [facility] Comment on above: Performed By: #### P GLU #### [facility] [address] [address] POC Performed on ACCU-CHEK [facility] Comment on above: Performed By: #### P GLU #### [facility] [address] [place] [address] Glucose [Mass/Vol] 126 mg/dL Critically high 60-115 [facility] Comment on above: Performed By: #### F IBR #### [facility] [address] [facility] [address] POC Performed on ACCU-CHEK Normal [facility] Comment on above: Performed By: #### F IBR #### [facility] [address] [facility] [address] Protein/Creatinine Ratioon 0 11-20-2019 Creatinine,Urine,Ran 53.2 mg/dL Normal 20-300 [facility] Comment on above: Performed By: #### P RATIO #### [place] [phone] Protein (U) [Mass/Vol] 47 mg/dL High 0-20 [facility] Comment on above: Performed By: #### P RATIO #### [place] [phone] Protein/Creatinine Ratio 0.9 High <0.2 [facility] Comment on above: Performed By: #### P RATIO #### [place] [phone] Rapid PCR FLU/RSVon 11-20-19 20 Influenza A PCR Negative [facility] Comment on above: Performed By: #### F LRSV #### [place] [address] Influenza B PCR Negative [facility] Comment on above: Performed By: #### F LRSV #### [address] RSV PCR Negative [facility] Comment on above: Performed By: #### F LRSV #### [address] Specimen source Nom (Unsp spec) Nasopharyngeal Swab [facility] Comment on above: Performed By: #### F LRSV #### [place] [phone] Type and Scr,Prenatlon 11-19 ABO/RH(D) Positive Normal [facility] Comment on above: Performed By: #### C BCDIF, CMP #### [facility] [address] [place] [address] Urinalysis, reflex to micros copicon 11-20-2019 Bilirubin Ql (U) Negative Normal Negative [facility] Comment on above: Performed By: #### L IPAS #### [facility] [address] [place] [address] Clarity (U) Clear Normal Clear [facility] Comment on above: Performed By: #### L IPAS #### [facility] [address] [place] [address] Color (U) Yellow Normal Straw/[place] [facility] Comment on above: Performed By: #### L IPAS #### [facility] [address] [place] [address] Glucose Ql (U) Negative Normal Negative [facility] Comment on above: Performed By: #### L IPAS #### [facility] [address] [place] [address] Hemoglobin Ql (U) Negative Normal Negative [facility] Comment on above: Performed By: #### L IPAS #### [facility] [address] [place] [address] Ketones Ql (U) >=80 Abnormal Negative [facility] Comment on above: Performed By: #### L IPAS #### [facility] [address] [place] [address] Leukocyte esterase Test strip Ql (U) Negative Normal Negative [facility] Comment on above: Performed By: #### L IPAS #### [facility] [address] [place] [address] Nitrite Ql (U) Negative Normal Negative [facility] Comment on above: Performed By: #### L IPAS #### [facility] [address] [place] [address] pH (U) 6.0 [pH] Normal 5.0-9.0 [facility] Comment on above: Performed By: #### L IPAS #### [facility] [address] [place] [address] Protein Ql (U) TRACE Abnormal Negative [facility] Comment on above: Performed By: #### L IPAS #### [facility] [address] [place] [address] Specific gravity (U) [Rel density] 1.009 Normal 1.005-1.03 [facility] Comment on above: Performed By: #### L IPAS #### [facility] [address] [place] [address] Urobilinogen Qn (U) 0.2 {Ace'U}/dL Normal < 2.0 [facility] Comment on above: Performed By: #### L IPAS #### [facility] [address] [place] [address] Amylaseon 11-19-2019 Amylase [Catalytic activity/Vol] 57 U/L Normal 22-93 [facility] Comment on above: Performed By: #### F IBR #### [facility] [address] [place] [address] CBC With Platelet and Differ entialon 11-19-2019 Slide Review see below Normal [facility] Comment on above: Result Comment: Slid e review agrees with reported results Performed By: #### C BCWD #### [facility] [address] [place] [address] Basophils (Bld) [#/Vol] 0.2 10*3/uL Normal 0.0-0.2 [facility] Comment on above: Performed By: #### C BCWD #### [facility] [address] [place] [address] Basophils/100 WBC (Bld) 1.0 % Normal [facility] Comment on above: Performed By: #### C BCWD #### [facility] [address] [place] [address] Eosinophils (Bld) [#/Vol] 0.0 10*3/uL Normal 0.0-0.7 [facility] Comment on above: Performed By: #### C BCWD #### [facility] [address] [place] [address] Eosinophils/100 WBC (Bld) 0.1 % Normal [facility] Comment on above: Performed By: #### C BCWD #### [facility] [address] [place] [address] Erythrocyte distribution width (RBC) [Ratio] 13.2 % Normal 11.5-14.5 [facility] Comment on above: Performed By: #### C BCWD #### [facility] [address] [place] [address] Hematocrit (Bld) [Volume fraction] 37.6 % Normal 37.0-47.0 [facility] Comment on above: Performed By: #### C BCWD #### [facility] [address] [place] [address] Hemoglobin (Bld) [Mass/Vol] 13.0 g/dL Normal 12.0-16.0 [facility] Comment on above: Performed By: #### C BCWD #### [facility] [address] [place] [address] Lymphocytes (Bld) [#/Vol] 1.1 10*3/uL Normal 1.0-4.8 [facility] Comment on above: Performed By: #### C BCWD #### [facility] [address] [place] [address] Lymphocytes/100 WBC (Bld) 6.3 % Normal [facility] Comment on above: Performed By: #### C BCWD #### [facility] [address] [place] [address] MCH (RBC) [Entitic mass] 30.8 pg Normal 27.0-31.3 [facility] Comment on above: Performed By: #### C BCWD #### [facility] [address] [place] [address] MCHC (RBC) [Mass/Vol] 34.5 % Normal 33.0-37.0 [facility] Comment on above: Performed By: #### C BCWD #### [facility] [address] [place] [address] MCV (RBC) [Entitic vol] 89.1 fL Normal 82.0-100.0 [facility] [facility] Comment on above: Performed By: #### C BCWD #### [facility] [address] [place] [address] Monocytes (Bld) [#/Vol] 0.5 10*3/uL Normal 0.2-0.8 [facility] Comment on above: Performed By: #### C BCWD #### [facility] [address] [place] [address] Monocytes/100 WBC (Bld) 2.7 % Normal [facility] Comment on above: Performed By: #### C BCWD #### [facility] [address] [place] [address] Neutrophils (Bld) [#/Vol] 15.5 10*3/uL Critically high 1.4-6.5 [facility] Comment on above: Performed By: #### C BCWD #### [facility] [address] [place] [address] Neutrophils/100 WBC (Bld) 89.9 % Normal [facility] Comment on above: Performed By: #### C BCWD #### [facility] [address] [place] [address] Platelets (Bld) [#/Vol] 272 10*3/uL Normal 130-400 [facility] Comment on above: Performed By: #### C BCWD #### [facility] [address] [place] [address] RBC (Bld) [#/Vol] 4.22 10*6/uL Normal 4.20-5.40 [facility] Comment on above: Performed By: #### C BCWD #### [facility] [address] [place] [address] WBC (Bld) [#/Vol] 17.2 10*3/uL Critically high 4.8-10.8 [facility] Comment on above: Performed By: #### C BCWD #### [facility] [address] [place] [address] Comprehensive Metabolic Pane l reflex Mgon 11-19-2019 Albumin [Mass/Vol] 3.7 g/dL Normal 3.5-4.6 [facility] Comment on above: Performed By: #### L IPAS #### [facility] [address] [place] [address] ALP [Catalytic activity/Vol] 133 U/L Critically high 40-130 [facility] Comment on above: Result Comment: Spec imen hemolysis has exceeded the interference as defined by Mik. Value may be falsely decreased. Suggest recollection if clinically indicated. Performed By: #### L IPAS #### [facility] [address] [place] [address] ALT [Catalytic activity/Vol] 18 U/L Normal 0-33 [facility] Comment on above: Result Comment: Spec imen hemolysis has exceeded the interference as defined by Mik. Result may be affected. Suggest recollection if clinically indicated. Performed By: #### L IPAS #### [facility] [address] [place] [address] Anion gap [Moles/Vol] 19 mmol/L Critically high 9-15 [facility] Comment on above: Performed By: #### L IPAS #### [facility] [address] [place] [address] AST [Catalytic activity/Vol] 31 U/L Normal 0-35 [facility] Comment on above: Result Comment: Spec imen hemolysis has exceeded the interference as defined by Mik. Value may be falsely increased. Suggest recollection if clinically indicated. Performed By: #### L IPAS #### [facility] [address] [place] [address] Bilirubin [Mass/Vol] 0.3 mg/dL Normal 0.2-0.7 [facility] Comment on above: Performed By: #### L IPAS #### [facility] [address] [place] [address] Calcium [Mass/Vol] 9.0 mg/dL Normal 8.5-9.9 [facility] Comment on above: Performed By: #### L IPAS #### [facility] [address] [place] [address] Chloride [Moles/Vol] 96 mmol/L Normal 95-107 [facility] Comment on above: Performed By: #### L IPAS #### [facility] [address] [place] [address] CO2 [Moles/Vol] 18 mmol/L Low 20-31 [facility] Comment on above: Performed By: #### L IPAS #### [facility] [address] [place] [address] Creatinine [Mass/Vol] 0.39 mg/dL Low 0.50-0.90 [facility] Comment on above: Performed By: #### L IPAS #### [facility] [address] [place] [address] GFR/1.73 sq M predicted among blacks MDRD (S/P/Bld) [Vol rate/Area] mL/min/{1.73_m2} Normal >60 [facility] Comment on above: Result Comment: >60 mL/min/1.73m2 EGFR, calc. for ages 18 and older using the MDRD formula (not corrected for weight), is valid for stable renal function. Performed By: #### L IPAS #### [facility] [address] [place] [address] GFR/1.73 sq M.predicted MDRD (S/P/Bld) [Vol rate/Area] mL/min/{1.73_m2} Normal >60 [facility] Comment on above: Result Comment: >60 mL/min/1.73m2 EGFR, calc. for ages 18 and older using the MDRD formula (not corrected for weight), is valid for stable renal function. Performed By: #### L IPAS #### [facility] [address] [place] [address] Globulin (S) [Mass/Vol] 3.2 g/dL Normal 2.3-3.5 [facility] Comment on above: Performed By: #### L IPAS #### [facility] [address] [place] [address] Glucose [Mass/Vol] 196 mg/dL Critically high 70-99 [facility] Comment on above: Performed By: #### L IPAS #### [facility] [address] [place] [address] Potassium reflex Mg 4.1 mEq/L Normal 3.4-4.9 [facility] Comment on above: Performed By: #### L IPAS #### [facility] [address] [place] [address] Protein [Mass/Vol] 6.9 g/dL Normal 6.3-8.0 [facility] Comment on above: Performed By: #### L IPAS #### [facility] [address] [place] [address] Sodium [Moles/Vol] 133 mmol/L Low 135-144 [facility] Comment on above: Performed By: #### L IPAS #### [facility] [address] [place] [address] Urea nitrogen [Mass/Vol] 6 mg/dL Normal 6-20 [facility] Comment on above: Performed By: #### L IPAS #### [facility] [address] [place] [address] D-Dimer Quanton 11-19-2019 D-Dimer Quant 0.84 mg/L FEU Critically high 0.00-0.50 [facility] Comment on above: Order Comment: CALL [facility] tel. [phone],dimer results called to and read back by Christine neal, 11/19/2019 19:59,by MAGGIE Performed By: #### F IBR #### [facility] [address] [place] [address] Fibrinogenon 11-19-2019 Fibrinogen 615.0 mg/dL Critically high 235.0-507. [facility] Comment on above: Performed By: #### F IBR #### [facility] [address] [place] [address] Lactate Dehydrogenaseon 10-24 LDH [Catalytic activity/Vol] 429 U/L Critically high 135-214 [facility] Comment on above: Result Comment: Spec imen hemolysis has exceeded the interference as defined by Mik. Value may be falsely increased. Suggest recollection if clinically indicated. Performed By: #### L DH #### [facility] [address] [facility] [address] Lipaseon 11-19-2019 Lipase [Catalytic activity/Vol] 35 U/L Normal 12-95 [facility] Comment on above: Performed By: #### L IPAS #### [facility] [address] [place] [address] Prothrombin Timeon 0 INR Coag (PPP) [Relative time] 0.9 {INR} Normal [facility] Comment on above: Performed By: #### F IBR #### [facility] [address] [facility] [address] PT Coag (PPP) [Time] 12.1 s Low 12.3-14.9 [facility] Comment on above: Performed By: #### F IBR #### [facility] [address] [place] [address] Type and Screen Capture 3 sc rn cellon 11-19-2019 Type and Screen Capture 3 scrn cell PATIENT: JAY Malone LOC: [facility],0320,01 BILL# : [id number] : 1985 SEX: F ORDERED BY: KRISTIAN BIRD ORDERED : 11/19/2019 18:24 COLLECTED: 11/19/2019 18:30 ORDER : [id number] RECEIVED : 11/19/2019 18:42 TEST NAME RESULT UNITS RANGES ABN FL ST ABORH Capture A POS F Antibody 3 Cell Scrn Captu NEG F @11/19/19 20:52 by MAGGIE: @11/20/19 09:22 by GILA: Repeated absc with a different lot of RS-3 strips- confirmed absc negative. LMB Normal [facility] Comment on above: Performed By: #### L IPAS #### [facility] [address] [place] [address] UR Drugs of Abuse Panelon Drug Screen Comment see below Normal [facility] Comment on above: Result Comment: This method is a screening test to detect only these drug classes as part of a medical workup. Confirmatory testing by another method should be ordered if clinically indicated. Performed By: #### F IBR #### [facility] [address] [place] [address] UR Amphetamines Screen Negative Normal Negative < [facility] Comment on above: Performed By: #### F IBR #### [facility] [address] [place] [address] UR Barbiturates Screen Negative Normal Negative < [facility] Comment on above: Performed By: #### F IBR #### [facility] [address] [place] [address] UR Benzo Screen Negative Normal Negative < [facility] Comment on above: Performed By: #### F IBR #### [facility] [address] [place] [address] UR Cannabinoids Screen Negative Normal Negative < [facility] Comment on above: Performed By: #### F IBR #### [facility] [address] [place] [address] UR Cocaine Screen Negative Normal Negative < [facility] Comment on above: Performed By: #### F IBR #### [facility] [address] [place] [address] UR Methadone Screen Negative Normal Negative < [facility] Comment on above: Result Comment: Effe ctive: 05/03/19 New Test for Qualitative Drug Screen. Performed By: #### F IBR #### [facility] [address] [place] [address] UR Opiates Screen Negative Normal Negative < [facility] Comment on above: Performed By: #### F IBR #### [facility] [address] [place] [address] UR Oxycodone Screen Negative Normal Negative < [facility] Comment on above: Result Comment: Effe ctive: 05/03/19 New Test for Qualitative Drug Screen. Performed By: #### F IBR #### [facility] [address] [place] [address] UR PCP Screen Negative Normal Negative < [facility] Comment on above: Performed By: #### F IBR #### [facility] [address] [place] [address] UR Propoxyphene Screen Negative Normal Negative < [facility] Comment on above: Result Comment: Effe ctive: 05/03/19 New Test for Qualitative Drug Screen. Performed By: #### F IBR #### [facility] [address] [place] [address] US ABDOMEN LIMITEDon 020 US ABDOMEN LIMITED US ABDOMEN LIMITED : 11/19/2019 CLINICAL HISTORY: abdominal pain . COMPARISON: Right upper quadrant ultrasound 08/31/[address] abdomen pelvis with contrast 12/03/2018. TECHNIQUE: Transabdominal ultrasound of the right upper quadrant was performed. FINDINGS: The gallbladder, visualized pancreas, right kidney, and great vessels are unremarkable. There is no significant gallbladder distention, wall thickening, calculi, pericholecystic fluid, biliary dilatation, ascites, or incidental findings of concern identified. The common duct measures approximately 2 to 3 mm at the beth hepatis. An approximately 3.5 x 3.1 x 2.6 cm hyperechoic mass within the posterior aspect of the medial segment of the left lobe of the otherwise normal-appearing liver is consistent with an hemangioma, unchanged from the previous studies. IMPRESSION: ESSENTIALLY NEGATIVE RIGHT UPPER QUADRANT ULTRASOUND. Interpreted by: Luis Oviedo MD Signed by: Luis Oviedo MD 11/19/19 Final result Normal [facility] US BIOPHYS PROFILE W N ON STRESSon 11-19-2019 US BIOPHYS PROFILE W NON STRESS US BIOPHYS PROFILE W NON STRESS : 11/19/2019 CLINICAL HISTORY: AMA COMPARISON: OB ultrasound 07/28/2019 Transabdominal ultrasound of the gravid uterus was performed for an ultrasound biophysical profile. FINDINGS: A single live intrauterine is present. heart rate measures 136 bpm. The amniotic fluid index measures 13.4 cm measured in 4 quadrants. Biophysical profile was performed with scoring as follows: 2/2 for breathing. 2/2 for movement. 2/2 for tone. 2/2 for amniotic fluid volume. IMPRESSION: BIOPHYSICAL PROFILE WITH A SCORE OF 8/8 CORRELATION WITH NON-STRESS TEST IS RECOMMENDED. Interpreted by: uLis Oviedo MD Signed by: Luis Oviedo MD 11/19/19 Final result Normal [facility] Urinalysis, reflex to micros copicon 11-19-2019 Bilirubin Ql (U) Negative Normal Negative [facility] Comment on above: Performed By: #### F IBR #### [facility] [address] [place] [address] Clarity (U) Clear Normal Clear [facility] Comment on above: Performed By: #### F IBR #### [facility] [address] [place] [address] Color (U) Yellow Normal Straw/Harford [facility] Comment on above: Performed By: #### F IBR #### [facility] [address] [place] [address] Glucose Ql (U) >=1000 Abnormal Negative [facility] Comment on above: Performed By: #### F IBR #### [facility] [address] [place] [address] Hemoglobin Ql (U) TRACE Abnormal Negative [facility] Comment on above: Performed By: #### F IBR #### [facility] [address] [place] [address] Ketones Ql (U) >=80 Abnormal Negative [facility] Comment on above: Performed By: #### F IBR #### [facility] [address] [place] [address] Leukocyte esterase Test strip Ql (U) Negative Normal Negative [facility] Comment on above: Performed By: #### F IBR #### [facility] [address] [place] [address] Nitrite Ql (U) Negative Normal Negative [facility] Comment on above: Performed By: #### F IBR #### [facility] [address] [place] [address] pH (U) 5.0 [pH] Normal 5.0-9.0 [facility] Comment on above: Performed By: #### F IBR #### [facility] [address] [place] [address] Protein Ql (U) 30 mg/dL Abnormal Negative [facility] Comment on above: Performed By: #### F IBR #### [facility] [address] [place] [address] Specific gravity (U) [Rel density] 1.023 Normal 1.005-1.03 [facility] Comment on above: Performed By: #### F IBR #### [facility] [address] [place] [address] Urobilinogen Qn (U) 0.2 {Ace'U}/dL Normal < 2.0 [facility] Comment on above: Performed By: #### F IBR #### [facility] [address] [place] [address] Urine Microscopicon 11-19-19 20 Bacteria LM.HPF (Urine sed) [#/Area] Negative Normal Negative [facility] Comment on above: Performed By: #### U MAKENNA #### [facility] [address] [place] [address] RBC (U) [#/Vol] 6-10 Abnormal 0-5 [facility] Comment on above: Performed By: #### U MAKENNA #### [facility] [address] [place] [address] Urine Epithelial Cells Auto 6-10 Normal 0-5 [facility] Comment on above: Performed By: #### U MAKENNA #### [facility] [address] [place] [address] Urine Hyaline Casts Auto 1-3 Normal 0-5 [facility] Comment on above: Performed By: #### U MAKENNA #### [facility] [address] [place] [address] Urine WBC Auto 0-2 Normal 0-5 [facility] Comment on above: Performed By: #### U MAKENNA #### [facility] [address] [place] [address] Amylaseon 08-31-2019 Amylase [Catalytic activity/Vol] 64 U/L Normal 22-93 [facility] Comment on above: Performed By: #### F IBR #### [facility] [address] [place] [address] CBC With Platelet and Differ entialon 08-31-2019 Platelet Slide Review Normal Normal [facility] Comment on above: Performed By: #### F IBR #### [facility] [address] [place] [address] Basophils (Bld) [#/Vol] 0.0 10*3/uL Normal 0.0-0.2 [facility] Comment on above: Performed By: #### F IBR #### [facility] [address] [place] [address] Basophils/100 WBC (Bld) 0.3 % Normal [facility] Comment on above: Performed By: #### F IBR #### [facility] [address] [place] [address] Eosinophils (Bld) [#/Vol] 0.0 10*3/uL Normal 0.0-0.7 [facility] Comment on above: Performed By: #### F IBR #### [facility] [address] [place] [address] Eosinophils/100 WBC (Bld) 0.0 % Normal [facility] Comment on above: Performed By: #### F IBR #### [facility] [address] [place] [address] Erythrocyte distribution width (RBC) [Ratio] 13.2 % Normal 11.5-14.5 [facility] Comment on above: Performed By: #### F IBR #### [facility] [address] [place] [address] Hematocrit (Bld) [Volume fraction] 39.2 % Normal 37.0-47.0 [facility] Comment on above: Performed By: #### F IBR #### [facility] [address] [place] [address] Hemoglobin (Bld) [Mass/Vol] 13.5 g/dL Normal 12.0-16.0 [facility] Comment on above: Performed By: #### F IBR #### [facility] [address] [place] [address] Lymphocytes (Bld) [#/Vol] 1.3 10*3/uL Normal 1.0-4.8 [facility] Comment on above: Performed By: #### F IBR #### [facility] [address] [place] [address] Lymphocytes/100 WBC (Bld) 7.1 % Normal [facility] Comment on above: Performed By: #### F IBR #### [facility] [address] [place] [address] MCH (RBC) [Entitic mass] 31.5 pg Critically high 27.0-31.3 [facility] Comment on above: Performed By: #### F IBR #### [facility] [address] [place] [address] MCHC (RBC) [Mass/Vol] 34.5 % Normal 33.0-37.0 [facility] Comment on above: Performed By: #### F IBR #### [facility] [address] [place] [address] MCV (RBC) [Entitic vol] 91.3 fL Normal 82.0-100.0 [facility] Comment on above: Performed By: #### F IBR #### [facility] [address] [place] [address] Monocytes (Bld) [#/Vol] 0.6 10*3/uL Normal 0.2-0.8 [facility] Comment on above: Performed By: #### F IBR #### [facility] [address] [place] [address] Monocytes/100 WBC (Bld) 3.1 % Normal [facility] Comment on above: Performed By: #### F IBR #### [facility] [address] [place] [address] Neutrophils (Bld) [#/Vol] 16.2 10*3/uL Critically high 1.4-6.5 [facility] Comment on above: Performed By: #### F IBR #### [facility] [address] [place] [address] Neutrophils/100 WBC (Bld) 89.5 % Normal [facility] Comment on above: Performed By: #### F IBR #### [facility] [address] [place] [address] Platelets (Bld) [#/Vol] 305 10*3/uL Normal 130-400 [facility] Comment on above: Performed By: #### F IBR #### [facility] [address] [place] [address] RBC (Bld) [#/Vol] 4.29 10*6/uL Normal 4.20-5.40 [facility] Comment on above: Performed By: #### F IBR #### [facility] [address] [place] [address] WBC (Bld) [#/Vol] 18.1 10*3/uL Critically high 4.8-10.8 [facility] Comment on above: Performed By: #### F IBR #### [facility] [address] [place] [address] Comprehensive Metabolic Pane samina 08-31-2019 Albumin [Mass/Vol] 3.9 g/dL Normal 3.5-4.6 [facility] Comment on above: Performed By: #### C MP #### [facility] [address] [place] [address] ALP [Catalytic activity/Vol] 64 U/L Normal 40-130 [facility] Comment on above: Performed By: #### C MP #### [facility] [address] [place] [address] ALT [Catalytic activity/Vol] 8 U/L Normal 0-33 [facility] Comment on above: Performed By: #### C MP #### [facility] [address] [place] [address] Anion gap [Moles/Vol] 18 mmol/L Critically high 9-15 [facility] Comment on above: Performed By: #### C MP #### [facility] [address] [place] [address] AST [Catalytic activity/Vol] 11 U/L Normal 0-35 [facility] Comment on above: Performed By: #### C MP #### [facility] [address] [place] [address] Bilirubin [Mass/Vol] mg/dL Normal 0.2-0.7 [facility] Comment on above: Performed By: #### C MP #### [facility] [address] [place] [address] Calcium [Mass/Vol] 8.8 mg/dL Normal 8.5-9.9 [facility] Comment on above: Performed By: #### C MP #### [facility] [address] [place] [address] Chloride [Moles/Vol] 99 mmol/L Normal 95-107 [facility] Comment on above: Performed By: #### C MP #### [facility] [address] [place] [address] CO2 [Moles/Vol] 21 mmol/L Normal 20-31 [facility] Comment on above: Performed By: #### C MP #### [facility] [address] [place] [address] Creatinine [Mass/Vol] 0.52 mg/dL Normal 0.50-0.90 [facility] Comment on above: Performed By: #### C MP #### [facility] [address] [place] [address] GFR/1.73 sq M predicted among blacks MDRD (S/P/Bld) [Vol rate/Area] mL/min/{1.73_m2} Normal >60 [facility] Comment on above: Result Comment: >60 mL/min/1.73m2 EGFR, calc. for ages 18 and older using the MDRD formula (not corrected for weight), is valid for stable renal function. Performed By: #### C MP #### [facility] [address] [place] [address] GFR/1.73 sq M.predicted MDRD (S/P/Bld) [Vol rate/Area] mL/min/{1.73_m2} Normal >60 [facility] Comment on above: Result Comment: >60 mL/min/1.73m2 EGFR, calc. for ages 18 and older using the MDRD formula (not corrected for weight), is valid for stable renal function. Performed By: #### C MP #### [facility] [address] [place] [address] Globulin (S) [Mass/Vol] 2.9 g/dL Normal 2.3-3.5 [facility] Comment on above: Performed By: #### C MP #### [facility] [address] [place] [address] Glucose [Mass/Vol] 162 mg/dL Critically high 70-99 [facility] Comment on above: Performed By: #### C MP #### [facility] [address] [place] [address] Potassium [Moles/Vol] 3.4 mmol/L Normal 3.4-4.9 [facility] Comment on above: Performed By: #### C MP #### [facility] [address] [place] [address] Protein [Mass/Vol] 6.8 g/dL Normal 6.3-8.0 [facility] Comment on above: Performed By: #### C MP #### [facility] [address] [place] [address] Sodium [Moles/Vol] 138 mmol/L Normal 135-144 [facility] Comment on above: Performed By: #### C MP #### [facility] [address] [place] [address] Urea nitrogen [Mass/Vol] 7 mg/dL Normal 6-20 [facility] Comment on above: Performed By: #### C MP #### [facility] [address] [place] [address] Lipaseon 08-31-2019 Lipase [Catalytic activity/Vol] 21 U/L Normal 12-95 [facility] Comment on above: Performed By: #### F IBR #### [facility] [address] [place] [address] US ABDOMEN LIMITEDon 020 US ABDOMEN LIMITED ULTRASOUND, LIMITED ABDOMEN: COMPARISONS: CT abdomen: 05/22/2019 CLINICAL HISTORY: Vomiting for 2 days. FINDINGS: Biplanar images were obtained. The gallbladder is physiologically distended. The gallbladder wall is not thickened. There is no sign of cholelithiasis or sludge within the gallbladder. The common bile duct measures up to 5 mm in diameter. No intrahepatic bile duct dilatation is seen. Anterior to the beth hepatis there is a hyperechoic area which measures 2.9 x 3.5 x 3.8 cm. In retrospect on the CT scan is a vague hypoechoic area in this region with some peripheral enhancement. This may represent a hemangioma but cannot BE certain. Portions of the pancreas visualized have a normal appearance. Tail of pancreas is not well visualized. No free fluid is seen within Morison?s pouch. IMPRESSION: NO SIGN OF CHOLELITHIASIS OR BILE DUCT DILATATION. 2.9 X 3.5 X 3.8 CM HYPERECHOIC LESION ANTERIOR TO THE BETH HEPATIS WITHIN THE LIVER, QUESTION HEMANGIOMA. CONSIDER CORRELATION WITH DEDICATED THREE-PHASE LIVER CT OR MRI. Interpreted by: Jesusita Turner MD Signed by: Jesusita Turner MD 08/31/19 Final result Normal [facility] CBC With Platelet and Differ entialon 08-23-2019 Basophils (Bld) [#/Vol] 0.1 10*3/uL Normal 0.0-0.2 [facility] Comment on above: Performed By: #### L DH #### [facility] [address] [place] [address] Basophils/100 WBC (Bld) 1.1 % Normal [facility] Comment on above: Performed By: #### L DH #### [facility] [address] [place] [address] Eosinophils (Bld) [#/Vol] 0.1 10*3/uL Normal 0.0-0.7 [facility] [facility] Comment on above: Performed By: #### L DH #### [facility] [address] [place] [address] Eosinophils/100 WBC (Bld) 0.5 % Normal [facility] Comment on above: Performed By: #### L DH #### [facility] [address] [place] [address] Erythrocyte distribution width (RBC) [Ratio] 12.7 % Normal 11.5-14.5 [facility] Comment on above: Performed By: #### L DH #### [facility] [address] [place] [address] Hematocrit (Bld) [Volume fraction] 36.1 % Low 37.0-47.0 [facility] Comment on above: Performed By: #### L DH #### [facility] [address] [place] [address] Hemoglobin (Bld) [Mass/Vol] 12.4 g/dL Normal 12.0-16.0 [facility] Comment on above: Performed By: #### L DH #### [facility] [address] [place] [address] Lymphocytes (Bld) [#/Vol] 2.2 10*3/uL Normal 1.0-4.8 [facility] Comment on above: Performed By: #### L DH #### [facility] [address] [place] [address] Lymphocytes/100 WBC (Bld) 21.2 % Normal [facility] Comment on above: Performed By: #### L DH #### [facility] [address] [place] [address] MCH (RBC) [Entitic mass] 30.9 pg Normal 27.0-31.3 [facility] Comment on above: Performed By: #### L DH #### [facility] [address] [place] [address] MCHC (RBC) [Mass/Vol] 34.4 % Normal 33.0-37.0 [facility] Comment on above: Performed By: #### L DH #### [facility] [address] [place] [address] MCV (RBC) [Entitic vol] 89.8 fL Normal 82.0-100.0 [facility] Comment on above: Performed By: #### L DH #### [facility] [address] [place] [address] Monocytes (Bld) [#/Vol] 0.7 10*3/uL Normal 0.2-0.8 [facility] Comment on above: Performed By: #### L DH #### [facility] [address] [place] [address] Monocytes/100 WBC (Bld) 6.7 % Normal [facility] Comment on above: Performed By: #### L DH #### [facility] [address] [place] [address] Neutrophils (Bld) [#/Vol] 7.4 10*3/uL Critically high 1.4-6.5 [facility] Comment on above: Performed By: #### L DH #### [facility] [address] [place] [address] Neutrophils/100 WBC (Bld) 70.5 % Normal [facility] Comment on above: Performed By: #### L DH #### [facility] [address] [place] [address] Platelets (Bld) [#/Vol] 304 10*3/uL Normal 130-400 [facility] Comment on above: Performed By: #### L DH #### [facility] [address] [place] [address] RBC (Bld) [#/Vol] 4.03 10*6/uL Low 4.20-5.40 [facility] Comment on above: Performed By: #### L DH #### [facility] [address] [place] [address] WBC (Bld) [#/Vol] 10.5 10*3/uL Normal 4.8-10.8 [facility] Comment on above: Performed By: #### L DH #### [facility] [address] [place] [address] Comprehensive Metabolic Pane samina 12-30-2019 Albumin [Mass/Vol] 3.7 g/dL Normal 3.5-4.6 [facility] Comment on above: Performed By: #### L DH #### [facility] [address] [place] [address] ALP [Catalytic activity/Vol] 53 U/L Normal 40-130 [facility] Comment on above: Performed By: #### L DH #### [facility] [address] [place] [address] ALT [Catalytic activity/Vol] 8 U/L Normal 0-33 [facility] Comment on above: Performed By: #### L DH #### [facility] [address] [place] [address] Anion gap [Moles/Vol] 12 mmol/L Normal 9-15 [facility] Comment on above: Performed By: #### L DH #### [facility] [address] [place] [address] AST [Catalytic activity/Vol] 9 U/L Normal 0-35 [facility] Comment on above: Performed By: #### L DH #### [facility] [address] [place] [address] Bilirubin [Mass/Vol] 0.3 mg/dL Normal 0.2-0.7 [facility] Comment on above: Performed By: #### L DH #### [facility] [address] [place] [address] Calcium [Mass/Vol] 9.0 mg/dL Normal 8.5-9.9 [facility] Comment on above: Performed By: #### L DH #### [facility] [address] [place] [address] Chloride [Moles/Vol] 103 mmol/L Normal 95-107 [facility] Comment on above: Performed By: #### L DH #### [facility] [address] [place] [address] CO2 [Moles/Vol] 22 mmol/L Normal 20-31 [facility] Comment on above: Performed By: #### L DH #### [facility] [address] [place] [address] Creatinine [Mass/Vol] 0.39 mg/dL Low 0.50-0.90 [facility] Comment on above: Performed By: #### L DH #### [facility] [address] [place] [address] GFR/1.73 sq M predicted among blacks MDRD (S/P/Bld) [Vol rate/Area] mL/min/{1.73_m2} Normal >60 [facility] Comment on above: Result Comment: >60 mL/min/1.73m2 EGFR, calc. for ages 18 and older using the MDRD formula (not corrected for weight), is valid for stable renal function. Performed By: #### L DH #### [facility] [address] [place] [address] GFR/1.73 sq M.predicted MDRD (S/P/Bld) [Vol rate/Area] mL/min/{1.73_m2} Normal >60 [facility] Comment on above: Result Comment: >60 mL/min/1.73m2 EGFR, calc. for ages 18 and older using the MDRD formula (not corrected for weight), is valid for stable renal function. Performed By: #### L DH #### [facility] [address] [place] [address] Globulin (S) [Mass/Vol] 2.7 g/dL Normal 2.3-3.5 [facility] Comment on above: Performed By: #### L DH #### [facility] [address] [place] [address] Glucose [Mass/Vol] 90 mg/dL Normal 70-99 [facility] Comment on above: Performed By: #### L DH #### [facility] [address] [place] [address] Potassium [Moles/Vol] 3.7 mmol/L Normal 3.4-4.9 [facility] Comment on above: Performed By: #### L DH #### [facility] [address] [place] [address] Protein [Mass/Vol] 6.4 g/dL Normal 6.3-8.0 [facility] Comment on above: Performed By: #### L DH #### [facility] [address] [place] [address] Sodium [Moles/Vol] 137 mmol/L Normal 135-144 [facility] Comment on above: Performed By: #### L DH #### [facility] [address] [place] [address] Urea nitrogen [Mass/Vol] 5 mg/dL Low 6-20 [facility] Comment on above: Performed By: #### L DH #### [facility] [address] [place] [address] Culture, Urineon 08-23-2019 Culture, Urine ORDERED BY: UMESH BOLES SOURCE: Urine Clean Catch COLLECTED: 08/23/19 17:15 ANTIBIOTICS AT [place].: RECEIVED : 08/23/19 18:14 Culture, Urine FINAL 08/25/19 08:20 No growth 24 hours Normal [facility] Comment on above: Performed By: #### F IBR #### [facility] [address] [place] [address] Influenza A and Bon 08-23-20 19 Influenza A by PCR Negative Normal [facility] Comment on above: Result Comment: Effe ctive 04/15/19 Please note methodology and/or reference ranges have changed. Performed By: #### L IPAS #### [facility] [address] [place] [address] Influenza B by PCR Negative Normal [facility] Comment on above: Result Comment: Effe ctive 04/15/19 Please note methodology and/or reference ranges have changed. Performed By: #### L IPAS #### [facility] [address] [place] [address] Magnesiumon 08-23-2019 Magnesium [Mass/Vol] 1.6 mg/dL Low 1.7-2.4 [facility] Comment on above: Performed By: #### M G #### [facility] [address] [place] [address] Urinalysis, reflex to cultur margarita 08-23-2019 Bilirubin Ql (U) Negative Normal Negative [facility] Comment on above: Performed By: #### U AR #### [facility] [address] [place] [address] Clarity (U) TURBID Abnormal Clear [facility] Comment on above: Performed By: #### U AR #### [facility] [address] [place] [address] Color (U) DARK YELLOW Abnormal Straw/Harford [facility] Comment on above: Performed By: #### U AR #### [facility] [address] [place] [address] Glucose Ql (U) Negative Normal Negative [facility] Comment on above: Performed By: #### U AR #### [facility] [address] [place] [address] Hemoglobin Ql (U) Negative Normal Negative [facility] Comment on above: Performed By: #### U AR #### [facility] [address] [place] [address] Ketones Ql (U) 15 mg/dL Abnormal Negative [facility] Comment on above: Performed By: #### U AR #### [facility] [address] [place] [address] Leukocyte esterase Test strip Ql (U) SMALL Abnormal Negative [facility] Comment on above: Performed By: #### U AR #### [facility] [address] [place] [address] Nitrite Ql (U) Negative Normal Negative [facility] Comment on above: Performed By: #### U AR #### [facility] [address] [place] [address] pH (U) 5.5 [pH] Normal 5.0-9.0 [facility] Comment on above: Performed By: #### U AR #### [facility] [address] [place] [address] Protein Ql (U) TRACE Abnormal Negative [facility] Comment on above: Performed By: #### U AR #### [facility] [address] [place] [address] Specific gravity (U) [Rel density] 1.020 Normal 1.005-1.03 [facility] Comment on above: Performed By: #### U AR #### [facility] [address] [place] [address] Urine Reflexed to Culture YES Normal [facility] Comment on above: Performed By: #### U AR #### [facility] [address] [place] [address] Urobilinogen Qn (U) 0.2 {Ace'U}/dL Normal < 2.0 [facility] Comment on above: Performed By: #### U AR #### [facility] [address] [place] [address] Urine Microscopicon 12-30-20 19 Bacteria LM.HPF (Urine sed) [#/Area] MODERATE Abnormal [facility] Comment on above: Performed By: #### U MAKENNA #### [facility] [address] [place] [address] RBC (U) [#/Vol] 3-5 Abnormal 0-5 [facility] Comment on above: Performed By: #### U MAKENNA #### [facility] [address] [place] [address] Urine Epithelial Cells Auto >100 Critically high 0-5 [facility] Comment on above: Performed By: #### U MAKENNA #### [facility] [address] [place] [address] Urine Hyaline Casts Auto 10-20 Normal 0-5 [facility] Comment on above: Performed By: #### U MAKENNA #### [facility] [address] [place] [address] Urine WBC Auto 10-20 Abnormal 0-5 [facility] Comment on above: Performed By: #### U MAKENNA #### [facility] [address] [place] [address] Provider Note - ED v2on 12-2 Provider Note - ED v2 Provider Note - ED v2: Chart Review: ED NOTES ED NOTES: Chief Complaint: Tooth pain History of Present Illness: This is a 34-year-old female presents with right upper and lower tooth pain for one week. She has been trying Tylenol with some relief. The patient is 5 months . No fever or chills. No trauma. She is scheduled to see a dentist in early August. Review of Systems Constitutional: no fever, chills, weakness, dizziness Cardiovascular: no chest pain, leg edema, palpitations Respiratory: no shortness of breath, cough, dyspnea on exertion, pleurisy, hemoptysis GI: no nausea, diarrhea, pain, vomiting, constipation, BRBPR, melena, heartburn Musculoskeletal: no myalgia, neck/back pain, redness, arthralgia, inflammation Skin: no rash, bruising, contusions, swelling, lacerations, abrasions Neurological: no headaches, numbness, change in function, weakness, AMS, paresthesias, speech change PMFSH Nursing notes reviewed and confirmed by me. Past Medical History: Colitis, GERD, prediabetic, asthma Past Surgical History: LMP: G P Tetanus: UTD Family History: no DM, HTN, CAD, CVA, Cancer Social History: no smoking, alcohol use, substance abuse Allergies and Medications: See nurses notes. Physical Exam Constitutional: Vital signs per nursing notes. Well developed, well nourished. No acute distress. Psychiatric: alert and oriented to person, place, and time; no abnormalities of mood or affect; memory intact Eyes: PERRL; conjunctivae and lids normal; EOMI ENT: otoscopic exam of external canal and TMs normal; nasal mucosa, turbinates, and septum normal; mouth, tongue, and pharynx normal; pharynx without edema, exudate, or injection; except mild tenderness to palpation to the right upper and lower molars Cardiovascular: symmetric pulses; no edema; normal capillary refill; distal pulses present Neurological: normal speech; CN II-XII grossly intact; normal motor and sensory function Musculoskeletal: normal gait and station; normal digits and nails; no gross tendon or ligament injury; normal to palpation; normal strength/tone; neurovascular status intact Skin: normal to inspection; normal to palpation; no rash; no cervical lymphadenopathy HISTORY OF PRESENTING ILLNESS MARY is a 34 year old Female and was seen by me at 20-Aug-2019 14:07 for a chief complaint of dental pain/injury . Other complaints include: RIGHT UPPER AND LOWER DENTAL PAIN(1). Triage Information: Most recent Vital Sign Value Date Temp (F): 97.1 08-20-2019 14:10 Temp (C): 36.2 08-20-2019 14:10 Heart Rate (beats/min): 85 08-20-2019 14:10 Respirations (breaths/min): 18 08-20-2019 14:10 BP Systolic (mm Hg): 132 08-20-2019 14:10 BP Diastolic (mm Hg): 69 08-20-2019 14:10 PAST MEDICAL HISTORY ATTESTATION: I have reviewed and confirmed nurse's/medic's notes for patient's medications, allergies, medical history, and surgical history ALLERGIES/INTOLERANCES : No documented data. HEALTH HISTORY: No documented data. 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 Patient will be prescribed antibiotics. I have also recommended Tylenol and warm salt water gargles for pain and discomfort. She is to follow-up with her dentist as planned. The OARRS report has been reviewed as part of the medical decision making process. Option to provide outpatient controlled substance prescription has been based off of this review and consideration for the patient's current clinical condition/ailment. OD risk score is 120. N 030. Sed 010. I discussed the results and discharge plan with the patient and/or family/friend if present. I emphasized the importance of follow up with the physician I referred them to in the timeframe recommended. I explained reasons for the patient to return to the Emergency Department. Questions were addressed. The patient and/or family/friend expressed understanding. CLINICAL IMPRESSION Diagnosis/Annotation: ED Dx Name:Dentalgia Code:K08.89 Dispostion: discharged Type: home ATTESTATION CRITICAL CARE TIME Is this a critically ill patient: no Electronic Signatures: Esequiel Goel) (Signed 20-Aug-2019 14:26) Authored: Provider Note - ED v2 Last Updated: 20-Aug-2019 14:26 by Esequiel Goel) References: 1. Data Referenced From Triage - ED 20-Aug-2019 14:10 Normal [facility] Risk Screen - Adult Emergenc yon 08-20-2019 Risk Screen - Adult Emergency Preferred Language: Preferred Language: Preferred Language for Discussing Health Care (patient/designee)Engl blayne Advanced Directives: Advance Directive/DNRno Family Violence Adult: Abuse Screen: Are you or have you been threatened or abused physically, emotionally, or sexually by anyoneno Learning Assessment (Patient): Learning Assessment (Patient): Patient is Able to be Assessed for Learningyes Factors Influencing Readiness to Learnacuteness of illness Factors that Impact Ability to Learnnone Devices/Methods Used to Communicatenone Learning Preferencesverbal instruction; written material Cultural Considerationsnone Developmental Considerationsnone Mormon Considerationsnone Learning Assessment (Other Learner): Learning Assessment (Other Learner): Other learner availableno Pressure Injury/TB/Substance: Pressure Injury: Do you have a coughyes... Has your cough lasted longer than 2 weeksno Admission Risk Screen: Significant IndicatorsComplete CAGE: CAGE: Is this an injured patient at a Trauma Center ([facility]/[place]/[facility]/[place]): no Electronic Signatures: Amna Parekh (STAFF N) (Signed 20-Aug-2019 14:16) Authored: Preferred Language, Advanced Directives, Family Violence Adult, Learning Assessment (Patient), Learning Assessment (Other Learner), Pressure Injury/TB/Substance, CAGE Last Updated: 20-Aug-2019 14:16 by Amna Parekh (STAFF N) Normal [facility] Triage - EDon 08-20-2019 Triage - ED Quick Triage: The patient and/or guardian verbally acknowledges placement for services into the following (when Urgent Care Service hours are operating):emergency department Are You yes Have You Given In The Last 6 Weeksno Are You Currently Breastfeedingno Chart Review: CHIEF COMPLAINT MARY PANIAGUA is a Female patient with a chief complaint of dental pain/injury. Other Complaints: RIGHT UPPER AND LOWER DENTAL PAIN Triage Date/Time: 20-Aug-2019 14:10 Pain Rating (0-10): 7 = Severe Vital Signs: Temperature: 97.1F ( 36.2C) taken temporal Blood Pressure: 132/69 Mean: Heart Rate: 85 Respiratory Rate: 18 on room air, no respiratory support. Height: 5 feet 5.00 inches. 165.1 CM Weight: 180.3 pounds. Calculated 81.8 kg. Calculated BMI (kg/m2): 30.009 Calculated BSA (m2) 1.94 Marlen Coma Scale: Best Eye Response: (E4) spontaneous Best Motor Response: (M6) obeys commands Best Verbal Response: (V5) oriented Gustavus Score: 15 Cough lasting greater than 3 weeks: no Travel outside of [place]: no Allergies: no Patient has homicidal thoughts: no REECE: 5 Risk Screens Suicide Risk Screen In the Past Month: Have you wished you were or wished you could go to sleep and not wake up no In the Past Month: Have you had any actual thoughts of killing yourself no In Your Lifetime: Have you ever done anything, started to do anything, or prepared to do anything to end your life no Jeter Fall Scale Screening Has the patient fallen before (or is the patient in the ED as a result of a fall) has not had a fall Does the patient have an impaired gait does not have impaired gait Is the patient cognitively impaired not cognitively impaired Interventions: Jeter Fall Interventions: *patient oriented to surroundings and call system, * patient/family falls education completed and documented, *patients fall status communicated during bedside handoff, *whiteboard updated, *mode of toileting discussed with patient, *bed in low position with brakes locked, *call light in reach, * non-skid footwear PAIN Pain Scale Used: MIKALA Pain Rating (0-10): 7 = Severe ARRIVAL INFORMATION Means of Arrival: Ambulatory Mode of Arrival: private vehicle Arrival From: home Accompanied By: immediate family member Language: Spoken Language Preferred: French Reading Language Preferred: French 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 The airway is open and patent. Breathing spontaneous and unlabored with clear breath sounds bilaterally. Circulation is normal with good peripheral pulses. Skin is warm and dry and color is normal for race. PAST MEDICAL HISTORY Immunization History: Last Known Tetanus Immunization: Unknown TRAVEL HISTORY Travel Exposure History: NO travel to International locations in the past 30 days Past Medical History: Past Medical History Reviewedyes D & C: Past Surgical History, Active CARPAL TUNNEL SURGERY RIGHT: Past Surgical History, Active ASTHMA: Past Medical History, Active PRE-DIABETIC: Past Medical History, Active GERD: Past Medical History, Active COLITIS: Past Medical History, Active Electronic Signatures: Amna Parekh (STAFF N) (Signed 20-Aug-2019 14:14) Authored: Triage, Past Medical History Last Updated: 20-Aug-2019 14:14 by Amna Parekh (STAFF N) Normal [facility] Vital Signs Date Time Vital Sign Value Performing Clinician Jelani aguilar 06-05-2022 12:59-0400 Body height 160.02 cm Moe Garner MD Work Phone: [facility] Work Phone: 06-05-2022 12:59-0400 Body mass index (BMI) [Ratio] 36.15 kg/m2 Moe Garner MD Work Phone: [facility] Work Phone: 06-05-2022 12:59-0400 Body surface area Derived from formula 1.95 m2 Moe Garner MD Work Phone: [facility] Work Phone: 06-05-2022 12:59-0400 Body weight 92.56 kg Moe Garner MD Work Phone: [facility] Work Phone: 06-05-2022 12:59-0400 0 1 Moe Garner MD Work Phone: [facility] Work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
== END 2024-03-25 14:35 | disposition home or self-care (01) ==
LOC: US 14:35
DX: R07.9 Chest pain, unspecified (principal); F17.210 Nicotine dependence, cigarettes, uncomplicated; D64.9 Anemia, unspecified; N93.9 Abnormal uterine and vaginal bleeding, unspecified; Z80.1 Family history of malignant neoplasm of trachea, bronchus and lung; Z12.31 Encounter for screening mammogram for malignant neoplasm of breast; Z97.5 Presence of (intrauterine) contraceptive device; N83.202 Unspecified ovarian cyst, left side
CPT/HCPCS: 36415; 71046; 76830; 76856; 77063; 77067; 82607; 82728; 82746; 83540; 83550

== ENCOUNTER 2024-03-25 14:37 | Outpatient (OUT) | payer OTHER, SELFPAY ==
--- NOTE | 2024-03-25 14:46 | XR_ITS ---
The [address] [address] Patient Name: MARY THOMPSON MRN: [id number] date: 1985 Sex: F Assigned Patient Location: LAB Current Patient Location: US Accession/Order Number: [id number] Exam Date: 03/25/2024 15:13 Report Date: 03/26/2024 05:42 At the request of: SUE GARCIA Procedure: XR chest 2V EXAMINATION: XR chest 2V HISTORY: Cough, Smoker COMPARISON: No relevant comparison available. FINDINGS: LUNGS: No significant pulmonary parenchymal abnormalities. VASCULATURE: No increased pulmonary vasculature. PLEURA: No pneumothorax, effusion, or pleural thickening. CARDIAC: No cardiomegaly or cardiac silhouette abnormality. MEDIASTINUM: No visible mass or adenopathy. BONES: No fracture or visible bone lesion. OTHER: Negative. XR/XR chest 2V IMPRESSION: 1. No acute cardiopulmonary process, significant chronic changes, or appreciable mass. Electronically authenticated by: HAL DUVAL Date: 03/26/2024 05:42
--- OUTSIDE RECORDS SUMMARY | 2024-03-25 14:53 | XMS_ITS | CCD ---
Author Organization [facility] ion [facility] Care Team Providers Care Crew Dispatcher Name Role Phone HERMILA GUAJARDO Attending Unavailable [...] Provider MD Quique Del Valle Attending Provider Ms. Mannie Levy Primary Care Unav ailable [...] Reference Range Facility Cytologyon 02-24-2024 Cytology Normal [facility] Comment on above: Result Comment: [facility] [address] [place] [address] Gynecologic Cytology Consultation Patient Name:MARY PANIAGUA:1985 (Age: 38)Gender:FTaken:4Reported:4Physician(s):Mercedez Warner APRN-CNPDarshan To: Rec. #:[id number]: #[id number] Final Cytologic Interpretation ThinPrep Pap Test (Cervical): Satisfactory for evaluation. A transformation zone component is present. NEGATIVE FOR INTRAEPITHELIAL LESION OR MALIGNANCY. jja/03/05/2024 Interpretation performed at [facility], [address] [place] [address], License number: [id number]. 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 The Pap test is primarily effective for the diagnosis and prevention of squamous cell carcinoma. Regular screening is critical for prevention. ThinPrep liquid-based slides, which meet the Machine Dyer criteria for automated screening, have been screened by the ThinPrep Imaging System (as of 05/11/07) along with an additional manual rescreening by a bead cutter and, if indicated, by a pathologist. HIGH RISK HPV W/GENOon 02-23 HPV 31+33+35+39+45+51+52+56 +58+59+66+68 DNA FALLON+probe Ql (Cvx) HPV SPECIMEN TYPE ThinPrep HPV 16 Negative (qualifier value) HPV 18 Negative (qualifier value) OTHER HIGH RISK HPV Negative (qualifier value) HPV types 31,33,35,39,45,52,56,5 8,59,66 and 68 DNA were undetectable. Normal [facility] Comment on above: Performed By: #### 7 1431-1 #### [facility] ([id number]) [address] [place] [address], [place] [address] [facility] ([id number]) [address] [place] [address], [address] [place] [address] XR FINGER THUMB LT MIN 2 VWS [...] Lyons MD on 12/16/2023 6:38 AM Normal [facility] XR SPINE CERVICAL 3 VWS OR L [...] Lyons MD on 12/16/2023 6:39 AM Normal [facility] ACUTE HEPATITIS PANELon 11-24 ANTI HCV W/PCR REFLX Non-Reactive Normal NRCT Pr [facility] Comment on above: Result Comment: If recent infection suspected, recommend repeat testing (>2 months). Nxmnmx-st-wpuccl ratio is <0.80. Performed By: #### [place], 89017-2, 01783-9 #### [facility] ([id number]) [address], [address] [place] [address] HEPATITIS A IGM Non-Reactive Normal NRCT [facility] Comment on above: Performed By: #### A HP, 10005-0, 01386-2 #### [facility] ([id number]) [address], [address] [place] [address] HEPATITIS B CORE IGM Negative Normal NEG [facility] Comment on above: Performed By: #### A HP, 22389-0, 43538-3 #### [facility] ([id number]) [address], [address] [place] [address] HEPATITIS B SURF AG Negative Normal NEG [facility] Comment on above: Performed By: #### A HP, 57073-8, 18064-2 #### [facility] ([id number]) [address] [place] [address], [address] [place] [address] HIV 1+2 Ab+HIV1 p24 Ag IA Ql on 12-15-2023 HIV 1 and 2 Ab/Ag Screen Non-Reactive Normal NRCT [facility] Comment on above: Result Comment: This information [...] or diagnoses. Performed By: #### A , 10983-6, 77204-8 #### [facility] ([id number]) [address] [place] [address], [address] [address] T. pallidum IgG+IgM IA Ql (S )on 12-15-2023 Syphilis Total <0.2 Normal 0.0-0.8 [facility] Comment on above: Result Comment: NON REACTIVE No serologic evidence of infection to Treponema pallidum (syphilis). Repeat testing may be considered in patients with suspected acute or primary syphilis in 2 to 4 weeks. Performed By: #### A , 11684-3, 00343-6 #### [facility] ([id number]) [address] [place] [address], [address] [address] CHLAMYDIA/GC BY PCRon 2023 CHLAMYDIA/GC BY PCR [...] are dependent on adequate specimen collection. Normal [facility] Comment on above: Performed By: #### C GS #### [facility] ([id number]) [address] [place] [address], [address] [place] [address] VAGINITIS PANEL PCRon 2023 VAGINITIS PANEL PCR BACT. VAGINOSIS DNA Not detected (qualifier value) Qualitative results are reported based on detection and quantitation of targeted organism markers which include: Lactobacillus spp. (L. crispatus and L. jensenii), Gardnerella vaginalis, Atopobium vaginae, Bacterial Vaginosis Associated Bacteria-2 (BVAB-2) and Megasphaera-1 AAMDOR SPECIES DNA Not detected (qualifier value) Amador [...] clinical presentation to determine patient diagnosis. Normal [facility] Comment on above: Performed By: #### V PPCR #### [facility] ([id number]) [address] [place] [address], [address] [place] [address] Chlamydia/GC,DNA Ampon 10-13 Chlamydia Probe Negative Normal NEG [facility] Comment on above: Result Comment: CHLA [...] G LYHGB, PHEP, SWCGP, TREP, HIVCMB #### [address] [address] Intermediate Card Tender: Pablo Pelaez MD #### CP, CBC, HCG #### [address] [place] [phone] Intermediate Card Tender: Manuel Mayorga MD Gonorrhea Probe Negative Normal NEG [facility] Comment on above: Result Comment: NEIS [...] G LYHGB, PHEP, SWCGP, TREP, HIVCMB #### [address] [id number] Intermediate Card Tender: Pablo Pelaez MD #### CP, CBC, HCG #### [address] [place] [phone] Intermediate Card Tender: Manuel Mayorga MD CBCon 10-10-2023 Erythrocyte distribution width (RBC) [Ratio] 13.6 % Normal 11.8-14.4 [facility] Comment on above: Performed By: #### G LYHGB, PHEP, SWCGP, TREP, HIVCMB #### [address] [phone] Intermediate Card Tender: Pablo Pelaez MD #### CP, CBC, HCG #### [address] [place] [phone] Intermediate Card Tender: Manuel Mayorga MD Hematocrit (Bld) [Volume fraction] 42.4 % Normal 36.3-47.1 [facility] Comment on above: Performed By: #### G LYHGB, PHEP, SWCGP, TREP, HIVCMB #### [address] [id number] Intermediate Card Tender: Pablo Pelaez MD #### CP, CBC, HCG #### [address] [place] [address] Intermediate Card Tender: Manuel Mayorga MD Hemoglobin (Bld) [Mass/Vol] 13.7 g/dL Normal 11.9-15.1 [facility] Comment on above: Performed By: #### G LYHGB, PHEP, SWCGP, TREP, HIVCMB #### [address] [address] Intermediate Card Tender: Pablo Pelaez MD #### CP, CBC, HCG #### [address] [place] [address] Intermediate Card Tender: Manuel Mayorga MD MCH (RBC) [Entitic mass] 28.5 pg Normal 25.2-33.5 [facility] Comment on above: Performed By: #### G LYHGB, PHEP, SWCGP, TREP, HIVCMB #### [address] [address] Intermediate Card Tender: Pablo Pelaez MD #### CP, CBC, HCG #### [address] [place] [address] Intermediate Card Tender: Manuel Mayorga MD MCHC (RBC) [Mass/Vol] 32.3 g/dL Normal 28.4-34.8 [facility] Comment on above: Performed By: #### G LYHGB, PHEP, SWCGP, TREP, HIVCMB #### [address] [id number] Intermediate Card Tender: Pablo Pelaez MD #### CP, CBC, HCG #### [address] [place] [address] Intermediate Card Tender: Manuel Mayorga MD MCV (RBC) [Entitic vol] 88.3 fL Normal 82.6-102.9 [facility] Comment on above: Performed By: #### G LYHGB, PHEP, SWCGP, TREP, HIVCMB #### [address] [address] Intermediate Card Tender: Pablo Pelaez MD #### CP, CBC, HCG #### [address] [place], [place] [phone] Intermediate Card Tender: Manuel Mayorga MD NRBC Automated 0.0 per 100 WBC Normal 0.0 [facility] Comment on above: Performed By: #### G LYHGB, PHEP, SWCGP, TREP, HIVCMB #### [address] [address] Intermediate Card Tender: Pablo Pelaez MD #### CP, CBC, HCG #### [address] [place] [phone] Intermediate Card Tender: Manuel Mayorga MD Platelet mean volume (Bld) [Entitic vol] 9.7 fL Normal 8.1-13.5 [facility] Comment on above: Performed By: #### G LYHGB, PHEP, SWCGP, TREP, HIVCMB #### [address] [address] Intermediate Card Tender: Pablo Pelaez MD #### CP, CBC, HCG #### [address] [place] [phone] Intermediate Card Tender: Manuel Mayorga MD Platelets (Bld) [#/Vol] 295 10*3/uL Normal 138-453 [facility] Comment on above: Performed By: #### G LYHGB, PHEP, SWCGP, TREP, HIVCMB #### [address] [address] Intermediate Card Tender: Pablo Pelaez MD #### CP, CBC, HCG #### [address] [place], [place] [phone] Intermediate Card Tender: Manuel Mayorga MD RBC (Bld) [#/Vol] 4.80 10*6/uL Normal 3.95-5.11 [facility] Comment on above: Performed By: #### G LYHGB, PHEP, SWCGP, TREP, HIVCMB #### [place] [address] [place] [address] Intermediate Card Tender: Pablo Pelaez MD #### CP, CBC, HCG #### [facility] [address] [place] [address] Intermediate Card Tender: Manuel Mayorga MD WBC (Bld) [#/Vol] 5.2 10*3/uL Normal 3.5-11.3 [facility] Comment on above: Performed By: #### G LYHGB, PHEP, SWCGP, TREP, HIVCMB #### [address] [address] Intermediate Card Tender: Pablo Pelaez MD #### CP, CBC, HCG #### [facility] [address] [place] [address] [place] [address] Intermediate Card Tender: Manuel Mayorga MD Comp Metabolic Profon 2023 Bilirubin [Mass/Vol] mg/dL Low 0.3-1.2 [facility] Comment on above: Performed By: #### G LYHGB, PHEP, SWCGP, TREP, HIVCMB #### [place] [address] [place] [address] Intermediate Card Tender: Pablo Pelaez MD #### CP, CBC, HCG #### [facility] [address] [place] [address] [place] [address] Intermediate Card Tender: Manuel Mayorga MD Albumin [Mass/Vol] 4.1 g/dL Normal 3.5-5.2 [facility] Comment on above: Performed By: #### G LYHGB, PHEP, SWCGP, TREP, HIVCMB #### [place] [address] [place] [address] Intermediate Card Tender: Pablo Pelaez MD #### CP, CBC, HCG #### [address] [place], [place] [phone] Intermediate Card Tender: Manuel Mayorga MD Albumin/Glob Ratio 1.6 Normal 1.0-2.5 [facility] Comment on above: Performed By: #### G LYHGB, PHEP, SWCGP, TREP, HIVCMB #### [address] [address] Intermediate Card Tender: Pablo Pelaez MD #### CP, CBC, HCG #### [address] [place], [place] [phone] Intermediate Card Tender: Manuel Mayorga MD Alkaline Phos 86 U/L Normal 35-104 [facility] Comment on above: Performed By: #### G LYHGB, PHEP, SWCGP, TREP, HIVCMB #### [address] [address] Intermediate Card Tender: Pablo Pelaez MD #### CP, CBC, HCG #### [address] [place], [place] 446[address]83 Intermediate Card Tender: Manuel Mayorga MD ALT [Catalytic activity/Vol] 16 U/L Normal 5-33 [facility] Comment on above: Performed By: #### G LYHGB, PHEP, SWCGP, TREP, HIVCMB #### [address] [address] Intermediate Card Tender: Pablo Pelaez MD #### CP, CBC, HCG #### [address] [place], [place] 7015083 Intermediate Card Tender: Manuel Mayorga MD Anion gap [Moles/Vol] 9 mmol/L Normal 9-17 [facility] Comment on above: Performed By: #### G LYHGB, PHEP, SWCGP, TREP, HIVCMB #### [address] [address] Intermediate Card Tender: Pablo Pelaez MD #### CP, CBC, HCG #### [address] [place], [place] 604[address]83 Intermediate Card Tender: Manuel Mayorga MD AST [Catalytic activity/Vol] 11 U/L Normal <32 [facility] Comment on above: Performed By: #### G LYHGB, PHEP, SWCGP, TREP, HIVCMB #### [address] [address] Intermediate Card Tender: Pablo Pelaez MD #### CP, CBC, HCG #### [address] [place] [address] Intermediate Card Tender: Manuel Mayorga MD BUN/CRE Ratio 13 Normal 9-20 [facility] Comment on above: Performed By: #### G LYHGB, PHEP, SWCGP, TREP, HIVCMB #### [address] [address] Intermediate Card Tender: Pablo Pelaez MD #### CP, CBC, HCG #### [address] [place], [place] [address]3 Intermediate Card Tender: Manuel Mayorga MD Calcium [Mass/Vol] 8.9 mg/dL Normal 8.6-10.4 [facility] Comment on above: Performed By: #### G LYHGB, PHEP, SWCGP, TREP, HIVCMB #### [address] [id number] Intermediate Card Tender: Pablo Pelaez MD #### CP, CBC, HCG #### [address] [place], [place] 9610483 Intermediate Card Tender: Manuel Mayorga MD Chloride [Moles/Vol] 105 mmol/L Normal 98-107 [facility] Comment on above: Performed By: #### G LYHGB, PHEP, SWCGP, TREP, HIVCMB #### [address] [address] Intermediate Card Tender: Pablo Pelaez MD #### CP, CBC, HCG #### [facility] [address] [place] [address] Dr. [place], [place] [phone] Intermediate Card Tender: Manuel Mayorga MD CO2 [Moles/Vol] 27 mmol/L Normal 20-31 [facility] Comment on above: Performed By: #### G LYHGB, PHEP, SWCGP, TREP, HIVCMB #### [address] [address] Intermediate Card Tender: Pablo Pelaez MD #### CP, CBC, HCG #### [facility] [address] [place] [address] [place] [phone] Intermediate Card Tender: Manuel Mayorga MD Creatinine [Mass/Vol] 0.8 mg/dL Normal 0.5-0.9 [facility] Comment on above: Performed By: #### G LYHGB, PHEP, SWCGP, TREP, HIVCMB #### [address] [address] Intermediate Card Tender: Pablo Pelaez MD #### CP, CBC, HCG #### [facility] [address] [place] [address] Intermediate Card Tender: Manuel Mayorga MD GFR/1.73 sq M.predicted among non-blacks MDRD (S/P/Bld) [Vol rate/Area] mL/min/{1.73_m2} Normal >60 [facility] Comment on above: Result Comment: These [...] G LYHGB, PHEP, SWCGP, TREP, HIVCMB #### [address] [address] Intermediate Card Tender: Pablo Pelaez MD #### CP, CBC, HCG #### [address] [place] [address] Intermediate Card Tender: Manuel Mayorga MD Glucose [Mass/Vol] 113 mg/dL High 70-99 [facility] Comment on above: Performed By: #### G LYHGB, PHEP, SWCGP, TREP, HIVCMB #### [address] [address] Intermediate Card Tender: Pablo Pelaez MD #### CP, CBC, HCG #### [address] [place] [phone] Intermediate Card Tender: Manuel Mayorga MD Potassium [Moles/Vol] 3.9 mmol/L Normal 3.7-5.3 [facility] Comment on above: Performed By: #### G LYHGB, PHEP, SWCGP, TREP, HIVCMB #### [address] [address] Intermediate Card Tender: Pablo Pelaez MD #### CP, CBC, HCG #### [facility] [address] [place] [address] Dr. [place] [phone] Intermediate Card Tender: Manuel Mayorga MD Protein [Mass/Vol] 6.6 g/dL Normal 6.4-8.3 [facility] Comment on above: Performed By: #### G LYHGB, PHEP, SWCGP, TREP, HIVCMB #### [facility] [address] [place] [address] Intermediate Card Tender: Pablo Pelaez MD #### CP, CBC, HCG #### [facility] [address] [place], [place] 2116383 Intermediate Card Tender: Manuel Mayorga MD Sodium [Moles/Vol] 141 mmol/L Normal 135-144 [facility] Comment on above: Performed By: #### G LYHGB, PHEP, SWCGP, TREP, HIVCMB #### [facility] [address] [place] [address] Intermediate Card Tender: Pablo Pelaez MD #### CP, CBC, HCG #### [address] [place] [address] Intermediate Card Tender: Manuel Mayorga MD Urea nitrogen [Mass/Vol] 10 mg/dL Normal 6-20 [facility] Comment on above: Performed By: #### G LYHGB, PHEP, SWCGP, TREP, HIVCMB #### [place] [address] [place] [address] Intermediate Card Tender: Pablo Pelaez MD #### CP, CBC, HCG #### [address] [place] [address] Intermediate Card Tender: Manuel Mayorga MD HCG Screen, Bloodon 10-10-19 24 HCG Screen, Blood Negative Normal NEG [facility] Comment on above: Result Comment: Spec imens with hCG levels near the threshold of the test (25 mIU/mL) may give a negative or indeterminate result. In such cases, another test should be performed with a new specimen in 48-72 hours. If early is suspected clinically in this setting, correlation with quantitative serum b-hCG level is suggested. [facility] has confirmed the use of plasma for this test. This has not been cleared or approved by the U.S. Food and Drug Administration. The FDA has determined that such clearance is not necessary. Performed By: #### G LYHGB, PHEP, SWCGP, TREP, HIVCMB #### [facility] [place] [address] Intermediate Card Tender: Pablo Pelaez MD #### CP, CBC, HCG #### [address] [place], [place] [phone] Intermediate Card Tender: Manuel Mayorga MD HIV Ag/Abon 10-10-2023 HIV Ag/Ab Non-Reactive Normal NR [facility] Comment on above: Result Comment: No l aboratory evidence of HIV infection. If acute HIV infection is suspected, consider testing for HIV-1 RNA. Performed By: #### G LYHGB, PHEP, SWCGP, TREP, HIVCMB #### [facility] [place] [address] Intermediate Card Tender: Pablo Pelaez MD #### CP, CBC, HCG #### [address] [place] [address] Intermediate Card Tender: Manuel Mayorga MD Hemoglobin A1Con 10-10-2023 Glucose [Mass/Vol] 123 mg/dL Normal [facility] Comment on above: Result Comment: The ADA and AACC recommend providing the estimated average glucose result to permit better patient understanding of their HBA1c result. Performed By: #### G LYHGB, PHEP, SWCGP, TREP, HIVCMB #### [facility] [place] [address] Intermediate Card Tender: Pablo Pelaez MD #### CP, CBC, HCG #### [address] [place] [address] Intermediate Card Tender: Manuel Mayorga MD HbA1c (Bld) [Mass fraction] 5.9 % Normal 4.0-6.0 [facility] Comment on above: Performed By: #### G LYHGB, PHEP, SWCGP, TREP, HIVCMB #### [facility] [place] [address] Intermediate Card Tender: Pablo Pelaez MD #### CP, CBC, HCG #### [address] [place], [place] [phone] Intermediate Card Tender: Manuel Mayorga MD Hepatitis Acute [facility] 10-10 Hep A Ab,IgM Non-Reactive Normal [facility] Comment on above: Performed By: #### G LYHGB, PHEP, SWCGP, TREP, HIVCMB #### [address] [address] Intermediate Card Tender: Pablo Pelaez MD #### CP, CBC, HCG #### [address] [place], [place] [address] Intermediate Card Tender: Manuel Mayorga MD Hep B Core Ab,IgM Non-Reactive Normal [facility] Comment on above: Performed By: #### G LYHGB, PHEP, SWCGP, TREP, HIVCMB #### [address] [address] Intermediate Card Tender: Pablo Pelaez MD #### CP, CBC, HCG #### [address] [place], [place] 2806583 Intermediate Card Tender: Maneul Mayorga MD Hep B Surf Ag Non-Reactive Normal [facility] Comment on above: Performed By: #### G LYHGB, PHEP, SWCGP, TREP, HIVCMB #### [address] [address] Intermediate Card Tender: Pablo Pelaez MD #### CP, CBC, HCG #### [address] [place], [place] 3911183 Intermediate Card Tender: Manuel Mayorga MD Hep C Ab Non-Reactive Normal [facility] Comment on above: Result Comment: The hepatitis [...] G LYHGB, PHEP, SWCGP, TREP, HIVCMB #### [place] [address] [place] [address] Intermediate Card Tender: Pablo Pelaez MD #### CP, CBC, HCG #### [address] [place] [address] Intermediate Card Tender: Manuel Mayorga MD T.pallidum Ab Screenon 10-10 T.pallidum Ab Screen Non-Reactive Normal NR [facility] Comment on above: Result Comment: T. pallidum antibodies are not detected. There is no serological evidence of infection with T. pallidum (early primary syphilis cannot be excluded). Retest in 2-4 weeks if syphilis is clinically suspect. Performed By: #### G LYHGB, PHEP, SWCGP, TREP, HIVCMB #### [address] [place] [address] Intermediate Card Tender: Pablo Pelaez MD #### CP, CBC, HCG #### [address] [place] [address] Intermediate Card Tender: Manuel Mayorga MD Trichomonas/Wet Prepon 10-10 Trichomonas/Wet Prep Specimen Descriptio n .VAGINAL SPECIMEN Direct Exam NO YEAST OBSERVED NO TRICHOMONAS SEEN CLUE CELLS SEEN Report Status FINAL 10/10/2023 Abnormal [facility] Comment on above: Performed By: #### W P #### [address] [place] [address] Intermediate Card Tender: Manuel Mayorga MD Coding Summaryon 11-14-2022 Coding Summary HTMLBase 64 ZwwzzuwuGKa9kOm+PGhlYW Q+EL1EHINaL79gtTRuvY7P W5kFKF2JRLVDXXRYJC8SUM 6rzTY9ZDkdM9NtzaAi PthwxSMsBO78JOh2MMT8rS iaXKngyB6thHXfH9f5TmRh IH50eJ95CDlnNXBfLzY4Ek ZpbjsgbWFy R3esCtMakYDrKbe+PHRhYm xlIHdpZHRoPScxMDAlJyBz sMlaYI2gTp9sJIBxBATjbN xhcHNlOiBj a8viFKXmKPmwHB7iaZpkS1 FlkJP4FYNsi8s5Lb03xWB+ JDBiOGJ9kGshGWtpy568Xe Wky9bmMNF5 fOLtGEkwMRH5S93or3R4NN RgWEEoJAP4yDC8hA3utIlj tfbjH7KouTWuVrG7KDQ6hO XhhP5tcCzy dbcbkR4rUzv+V70RXU0ZPF NRLF8ZGst8K1NcFvsspHL+ UI97XOVrLV49uJWjaYAio2 njuFp0LhYj JPGdANH0uRzqHSgaw6XaQO DuI41oxZWfu5H7VDVvbAcw eXEiLrBkrDD6tP5uQAlyog qsa0phthfe Rgkam8voev91qI95Z94wFR dlVKIeLVS7QSMoRAIpuWnp ic1aaH7tWn0+YGbnm6gss0 bmbGj0EuCx AXCxurSbrCuiWOW7w3QbAc 10F1OimQgzg5QnBqy1rz26 uHWoh5M4bNY9AEgjCXIqeD 0kKKtuRaN1 MFAcVmRbxM48hQNsAZnkSs 7btYpzeIpvWM1dLSIxbmbu JAYvlY5uAJPohHDefRabLU 4wNTBpbjtm b598LsKuLKE9IHKcmNAuY3 FybA6dDmXcDTLnIDSpI3An mUJmGAcwP812NSkhYtW3MF YgfvWtX5Lg CRWwsJepLmX3q0C2Il5Zv4 VmuzljQXG4BTczPOBsIgNb JgKvSqC3N9HbXka5FNIznU zmYE5qP8Xa UOPtexsfsgvwkZM8VKBoAF MsiQ36bENuVGucFd8tu2W2 c289AEHgDZQfmE48Gd7rvN ogMTBwdCBU sK8mahhuy8hrxhwfAgFdAR NaLXa3YHh4GZDwcDiaPsAn WHX0PuS0VEX4tNDlpT7luR lwphapaM6g Oyc+B92mrB9kNEL4XEE3wa toHUZmgzUnHB35CA15G3Gk PjwvdGFibGU+PGRpdiBzdH eoZF7qZjUa o3gxb6TsOGhiI0SyKYAcER adSjo3GGWnZPW9uSH5rQ4m BJKaVCnyl4N1qBI0I9Asmt Bkiu2bc1zc HRTtYXgoG96olABmt9M2SN ViaLJ9BMTaiLydCiDazG75 Oyc+UDThcTkjg5BtJdnqe8 sjl5mevIs8 NaNuMTEsklFrcLyvNIS1h2 YqDd04S88cKEafCCFlTHJg SFNqWMBmeFxger5ltQ5wHi 8+PGNvbCB3 vHF8pQ5bOFSvBuO4RWwyV9 16NiMkrTIjWyonr8dcx4xd jTb7ItYdZJDtrqWetPdwFR S6k2VnVq83 O96ySLucNJGzACRwSDWgYP HaaLilet6hcS9yPx9+PC9j g3vtdy64tU30hTZ+PHRkIH G4cIggOQlp XENidR8qJTelRuZ4AJTmRf FoyE00nDVxUWzwMx6lmUuj xPxbZA9gAMYpfannr875Yz Odd5ylEYGe eTMzAXugIII0I91bh5H3VA DyXOXhIUP5vEW2fY9ynGkr bjogbGVmdDsgdmVydGljYW huWCgmA411 IHRvcDsnPlBhdGllbnQgTm TpXAy1K7LqDir5JMBjrDwb NY1dhFVbYQnpYb9vhGafvR yqJJ0xHRDp qsade308PeZpb7dxKXNgrY QwBXyqVVN7B37mf7T0GRUo UMOuFBW7zRJ2lC0ikXgkzy ogbGVmdDsg orTjiIfxLObfMUocK488CZ RvcDsnPkJpcnRoIERhdGU6 AZ37HA97lCExf1A9jNK9W9 BhZGRpbmct desovSV1ZAPzYPTzlI44Cf 7pgLleFd2nDCBrRAA0HEQq cCBnL9DldN5zDkAhWPLhIC NdS0NouFVr MHtxA681CGisDhT3ZWSybx QyN8MlBBUzlGyaLhC6r6W0 Px7GI1U7FJ68ZS78aDFaa7 X0hUS3R1Kh ZKNshwtwkcpjfXN9UKGuKJ EvaH87Ql4gpUcwOn8vSLEt AFS5ICWpjDOgH1EvqQ1oAz AjMDAwMDAw N8WihGNkBXkoB303XWadDi Q3IRSgkwSxO4AnPFLyeFzm FoJ5h5D1Ag0JJDq1DF43HT 31zZWly2B6 yID8Y6UrSNWlrzsfqrlleR R6JRJjROEdlS59Hn5oiRbh Uc4eZPIdEAR0VOJicZGgR0 CooN0iDjHo RYUhGVMxN5OemWYxAQoqW6 41EIzrWpT5TUVahhDjL1Lu KZKzrMhlRzN8k9X3Ac7WAZ BeFY99MLH0 cJE4MB41TG22X8WsItmauE FibGU+PHRhYmxlIHdpZHRo ODxyTCXpYcTmwOotZP0iQz 9yZGVyLWNv yBtxiULlMzZod5tyNUQaOS ubIZ9swWrjX1CinWM6KIDd l0j7Jp43L64tZ7RxzTP+PG YubRL1zRO3 pP7uKsZpIfO7ZXbwR687Tw ZzwTStHgtqv0doc3yaeJq7 HtU9THMkwdYjpSuzJBI4x0 EqDx83G88n IHdpZHRoPSIxNSUiIHZhbG gesp5lmV7hUu7+PGNvbCB3 pPT1gC7cMaObNyZ6KDdmO7 49InRvcCIv Akrgw1edt7syyOi0VnWxYZ OluhFzbMvrGTH2z8PfJw58 J1UmcNqpt7TdXyj0rx28vL Ida3V0uLR2 G2PdXVDsodhfyRHcuHrlVL 3yOEKqpoteGMVprI3cJBZi X9e6YjToYuC4MHnrV7Muno B2RLUnlGKq XFcnWTW7Y48ow7M9XZMdKP IoTOR3lKJ3xI9slUzdepmd bGVmdDsgdmVydGljYWwtYW wfJ102DJNy oUyaSNYpdD0kHBYdtEFdxV suTQ4vXSJoagytWxgRZyML PE8bRKUCI9cCPEIRTE87KX 74uVHxf9S4 wPA6Z1LzOAEnqiduwlialO O6NLKfRMVelW63gPAvVFhm Av1pu1F0q373SIZkMUBznQ 84Jt4dzMej NJXytLLZoP9rluyht9zvnu enCrGiZKDyDRl8WMm8CWFh oTprQvAcKWA7NyL2XWN3zL VyxM4flXoh iwbovN6wAxe+MDcvMTIvMT z8YZrbpKP+RIToBZF8zPyj YUknNROrlW7zTIMbU1q5Es BxKyF5MWpa W7FrSGTctdfrIk71lM1wBk JdQiZ1YPmhA9ZmigN1ZQKo oDXzYKcdZWK8C38xj4Y3PX MwMDAwMDA7 dGK6uP2ydLkuirxlaAHijP jeslTfxUbzUChrJSvnG423 FXYljFnoPbS1FZrmOHClDE 86MQ72bRLv b3Z5hVQ3J9VgJBKpmwtlei lcxHP5GLSjBZWwgU30zYJx UQdmOh7yr3T5i701HBInOV AraA23Tk0o iPzaIKDujYFRtZ1wbkikq3 gdahdwExGbGWDeGVb5XKb3 YUPbtMzuGlLjXCL1PeF1SM L6eBGkmJ3e nRvqleqayB1sOuj+RkVNQU dOCS73AM91fIFud2T3jHB2 X0MlYZWvwsiwfdhoxFS6NW YyIGAjxO24 oQJeEQloQb6iu9N4p822TQ KnIYCicW79Fm9vzXouVPWn iHBBdT1yryiwq6nhtbvhCm AwMDAwMDt0 CAt8BUVrlEqyOsLnXZQ1Ql Z3AKS0pUIlfJ1obGwkevfb iZ0rCod+E2T2C2NtOfjthZ I+MK65YMQs TT24iFFzhTElk2ecoXo4Kh AiRISvZWY7oOvpKTvmz9Gz NAOxP36zgVWnt3Z9FCLzcA xhcHNlOyBl yNP6dJ9iIWevxwdey8olbg mzHkyut8jmrr22kO12Q35v IHdpZHRoPSIzMCUiIHZhbG owrh4igF1y Ii8+HTDeeKQ8rTU3dJ8lSk LiSvK6VPjrA337QeGdrXKf Qmbtl2tck2lrvSa8QzBfJI IgdmFsaWdu ZEQ6x0TiCn63J46iAKhhII AoOVBqQZTrNNTgaQirif3q fZ7tCd5+YX0yw2glvr59wF 48dHI+PHRk XUM9hOccBLviYNOgkA0oXD wfGvU1RYEfMyBxlO43cPDu OGtaSp9cgNllrJobWW5gUL Ragvunn954 KwBqv9bpZSAtmEOoESsxPJ T3F20rb1A6JSQeUNOyAUS0 yFP6fW3pnLoybbwnsEWhyV sgdmVydGlj AEanLTozV475ZPQtfFayPz RqbCAsP1jczxGIBL9zSxmt dGQ+IBCzVQK5mIeeWRfdHB WhaU2zXHGk L0i4NvWiDeU8BQleN8Dhzv N4TSOolUDhQKNbeTFAkV1m oerfu7hgkhmaZjToBKBiTY t2QTf2MYIw fUhkSwSnRMM8FlX7VFA4qP FevP9zlWmyjhoayQ8jFho+ RklOOjwvdGQ+EFXsECI2aC xlPSdwYWRk wK6cYBRcN8b6SzSzFlS8PQ qdQ5LofkM7JSXauIKwPHFo gIYZvX3rgseob2kwkotdMf AwMDAwMDt0 QNx9QYZhjHvmCsPpNHW9To H3PNP3gQFwiB9zaRmqkgag zV1pTws+TVJOOjwvdGQ+PH AjRAP2uMme UAsyMCIwsH3fZEFmA3b3Ae EeHoA9UQvvR0YocgJ2KEWg hHNsMEYhoSGNfI8jwkquj8 xvcjogIzAw XTDlKVo4HBs7TATcjYmxCi LiWZX0NuL1HDD8fUTlmO5x gGjfhmygjL1aRqb+UGF5ZX W3GG92JI15 C2UaWzraxFUvmCS+PHRhYm xlIHdpZHRoPScxMDAlJyBz uSxtKQ6cAd4xCVUgQNKwpA xhcHNlOiBj b2x (more content not included)... Normal [facility] Provider Orderson 11-14-2022 Provider Orders [id number]#1.0 0OTGTIFF Normal [facility] .Auto Diff 1on 11-13-2022 Auto [place] % 7 % Normal -12 [facility] Comment on above: Performed By: #### 6 103195, 7139204, 20948125, 3562602080, 2785353289, 1417217, 2257991522 #### [facility] (DEFAULT) [address] [place] [address] 40123 Baso Abs# 0.1 x10 Normal 0.0-0.2 [facility] Comment on above: Performed By: #### 6 715084, 4176201, 12084497, 4547521226, 9811793170, 3392913, 0015709463 #### [facility] (DEFAULT) [address] [place] [address] 23760 Basophils/100 WBC (Bld) 0.8 % Normal 0.2-2.0 [facility] Comment on above: Performed By: #### 6 424646, 7158920, 45394225, 4329921382, 5979834962, 8981524, 0686419937 #### [facility] (DEFAULT) [address] [place] [address] 10864 Eos Abs# 0.1 x10 Normal 0.0-0.4 [facility] Comment on above: Performed By: #### 6 348540, 5015634, 99702049, 1796895514, 4029076048, 5139029, 7617702212 #### [facility] (DEFAULT) [address] [place] [address] 22781 Eosinophils/100 WBC (Bld) 2.0 % Normal 0.9-4.0 [facility] Comment on above: Performed By: #### 6 774428, 4794638, 41403813, 9273779229, 1920528139, 1181216, 3063440023 #### [facility] (DEFAULT) [address] [place] [address] Lymph Abs# 1.5 x10 Normal 1.3-2.9 [facility] Comment on above: Performed By: #### 6 845091, 7923119, 64214812, 2272810568, 3920194721, 8389354, 4876550247 #### [facility] (DEFAULT) [address] [place] [address] Lymphocytes/100 WBC (Bld) 21 % Normal 14-48 [facility] Comment on above: Performed By: #### 6 081994, 6933466, 78775915, 8870320360, 9241195775, 0689480, 2811152085 #### [facility] (DEFAULT) [address] [place] [address] [place] Abs# 0.5 x10 Normal 0.0-0.8 [facility] Comment on above: Performed By: #### 6 581923, 4228412, 00707120, 7252147993, 2351600318, 1757774, 5179129604 #### [facility] (DEFAULT) [address] [place] [address] Neut Abs# 4.8 x10 Normal 1.5-9.2 [facility] Comment on above: Performed By: #### 6 066942, 5356360, 63337955, 7208397132, 1658297280, 6494984, 0314129209 #### [facility] (DEFAULT) [address] [place] [address] Neutrophils/100 WBC (Bld) 69 % Normal 44-88 [facility] Comment on above: Performed By: #### 6 288317, 5878197, 15412594, 7531649790, 6242188856, 0100611, 9126207554 #### [facility] (DEFAULT) [address] [place] [address] 61469 CBC w/ Auto Diffon 3 Erythrocyte distribution width (RBC) [Ratio] 14.9 % Normal 11.5-15.0 [facility] Comment on above: Performed By: #### 6 114101, 7683180, 77759461, 3073167508, 3769953939, 4662018, 4965811981 #### [facility] (DEFAULT) [address] [place] [address] Hematocrit (Bld) [Volume fraction] 35.5 % Normal 33.7-40.4 [facility] Comment on above: Performed By: #### 6 595651, 8215926, 35758483, 1894983417, 6456636816, 4127391, 3000223838 #### [facility] (DEFAULT) [address] [place] [address] Hemoglobin (Bld) [Mass/Vol] 12.1 g/dL Normal 11.3-15.9 [facility] Comment on above: Performed By: #### 6 449117, 1931136, 66741959, 7570444653, 2372462955, 9413579, 0329749083 #### [facility] (DEFAULT) [address] [place] [address] Man Diff? Auto Invalid Interpretation Code [facility] Comment on above: Performed By: #### 6 021659, 1484703, 92813478, 8661874746, 9541677215, 2856156, 4269282194 #### [facility] (DEFAULT) [address] [place] [address] MCH (RBC) [Entitic mass] 29 pg Normal 24-34 [facility] Comment on above: Performed By: #### 6 184824, 9745786, 23992238, 3448246366, 7260918922, 1702628, 7954408837 #### [facility] (DEFAULT) [address] [place] [address] MCHC (RBC) [Mass/Vol] 34 g/dL Normal 26-37 [facility] Comment on above: Performed By: #### 6 381919, 2417266, 64992435, 7938487185, 5339233116, 7718333, 9054248370 #### [facility] (DEFAULT) [address] [place] [address] 39521 MCV (RBC) [Entitic vol] 84 fL Normal 81-100 [facility] Comment on above: Performed By: #### 6 754389, 0042281, 67186049, 2327841813, 7510183715, 2373187, 7040202065 #### [facility] (DEFAULT) [address] [place] [address] Platelet 265 x10 Normal 138-427 [facility] Comment on above: Performed By: #### 6 194557, 0812298, 44000025, 6877267310, 8147815410, 2432273, 7511471633 #### [facility] (DEFAULT) [address] [place] [address] Platelet mean volume (Bld) [Entitic vol] 6.9 fL Normal 6.3-10.2 [facility] Comment on above: Performed By: #### 6 855679, 1008806, 34546338, 0815712358, 6963579655, 8507178, 3856453171 #### [facility] (DEFAULT) [address] [place] [address] RBC 4.22 x10 Normal 3.70-5.30 [facility] Comment on above: Performed By: #### 6 954205, 0950946, 80890967, 7067110885, 2376171644, 5895385, 6958529323 #### [facility] (DEFAULT) [address] [place] [address] WBC 7.0 x10 Normal 3.5-10.5 [facility] Comment on above: Performed By: #### 6 715132, 4480004, 37601402, 5457659543, 9577541728, 1818168, 3717033904 #### [facility] (DEFAULT) [address] [place] [address] CMP Standardon 11-13-2022 eGFR Non AA >60 Invalid Interpretation Code [facility] Comment on above: Performed By: #### 6 448371, 1399475, 51323615, 9579829503, 5847249212, 3301633, 2317359465 #### [facility] (DEFAULT) [address] [place] [address] eGFR AA >60 Invalid Interpretation Code [facility] Comment on above: Performed By: #### 6 622435, 4600357, 10786918, 9610733592, 3714853185, 8334826, 0928556571 #### [facility] (DEFAULT) [address] [place] [address] Albumin [Mass/Vol] 4.0 g/dL Normal 3.5-5.0 [facility] Comment on above: Performed By: #### 6 496496, 4508200, 42937464, 4793760591, 4781892488, 8024583, 0873284364 #### [facility] (DEFAULT) [address] [place] [address] Alk Phos 61 IU/L Normal 32-91 [facility] Comment on above: Performed By: #### 6 665422, 6583455, 42438566, 4294647455, 1916282834, 3532224, 6167039474 #### [facility] (DEFAULT) [address] [place] [address] ALT [Catalytic activity/Vol] 18.0 U/L Normal 14.0-54.0 [facility] Comment on above: Performed By: #### 6 383506, 4831029, 01647559, 2742657133, 5474666494, 9556217, 0569635758 #### [facility] (DEFAULT) [address] [place] [address] 66371 AST [Catalytic activity/Vol] 19 U/L Normal 15-41 [facility] Comment on above: Performed By: #### 6 072218, 4648344, 37052407, 9241429176, 1055501561, 0921331, 5672515274 #### [facility] (DEFAULT) [address] [place] [address] Bili Total 0.6 mg/dL Normal 0.3-1.2 [facility] Comment on above: Performed By: #### 6 494791, 5606751, 77822193, 8733475868, 5993937583, 3725444, 0594232824 #### [facility] (DEFAULT) [address] [place] [address] 41196 Calcium [Mass/Vol] 8.5 mg/dL Low 8.9-10.3 [facility] Comment on above: Performed By: #### 6 727700, 2004951, 19786033, 3556450507, 6366725265, 7150975, 3968755727 #### [facility] (DEFAULT) [address] [place] [address] 12102 Chloride [Moles/Vol] 107 mmol/L Normal 101-111 [facility] Comment on above: Performed By: #### 6 921008, 2468595, 94470846, 3005402807, 1519970465, 6125482, 9419937613 #### [facility] (DEFAULT) [address] [place] [address] 10780 CO2 [Moles/Vol] 27 mmol/L Normal 21-32 [facility] Comment on above: Performed By: #### 6 621028, 2370654, 42924722, 4190774212, 8322764951, 7929019, 9592300137 #### [facility] (DEFAULT) [address] [place] [address] 10872 Creatinine [Mass/Vol] 0.83 mg/dL Normal 0.60-1.30 [facility] Comment on above: Performed By: #### 6 027217, 1534078, 58319580, 7985106967, 4882340623, 7818299, 7712950981 #### [facility] (DEFAULT) [address] [place] [address] 47254 Glucose [Mass/Vol] 155.0 mg/dL High 74.0-118.0 [facility] Comment on above: Performed By: #### 6 457294, 5551800, 58644805, 9928950103, 7442447458, 7092307, 5375931289 #### [facility] (DEFAULT) [address] [place] [address] 78093 Potassium [Moles/Vol] 3.8 mmol/L Normal 3.6-5.1 [facility] Comment on above: Performed By: #### 6 905285, 0392257, 91343880, 1133814179, 2319161816, 1791263, 4502501173 #### [facility] (DEFAULT) [address] [place] [address] 75721 Protein [Mass/Vol] 6.6 g/dL Normal 6.5-8.1 [facility] Comment on above: Performed By: #### 6 084199, 5224373, 23429752, 5127077843, 3793164379, 1352835, 0077494972 #### [facility] (DEFAULT) [address] [place] [address] 72092 Sodium [Moles/Vol] 137.0 mmol/L Normal 136.0-144.0 [facility] Comment on above: Performed By: #### 6 282992, 2365123, 04260539, 8967903340, 8334187120, 4372101, 3295263258 #### [facility] (DEFAULT) [address] [place] [address] 15681 Urea nitrogen [Mass/Vol] 10 mg/dL Normal 8-26 [facility] Comment on above: Performed By: #### 6 669998, 9611441, 08421820, 9061526757, 8668847831, 6497372, 1529722620 #### [facility] (DEFAULT) [address] [place] [address] 26492 Albumin/Globulin [Mass ratio] 1.5 {ratio} Normal 1.4-2.6 [facility] Comment on above: Performed By: #### 6 720729, 4972894, 06309025, 0666022673, 4748606243, 1086908, 2075155337 #### [facility] (DEFAULT) [address] [place] [address] 64604 Anion gap [Moles/Vol] 6.8 mmol/L Normal 5.0-19.0 [facility] Comment on above: Performed By: #### 6 278140, 7224924, 09926096, 0514698584, 0739672621, 7160406, 2745145067 #### [facility] (DEFAULT) [address] [place] [address] 14961 Globulin (S) [Mass/Vol] 2.6 g/dL Normal 1.5-4.3 [facility] Comment on above: Performed By: #### 6 515471, 6438987, 54930130, 3888256464, 0183712160, 7732079, 7060427962 #### [facility] (DEFAULT) [address] [place] [address] Osmolality 276 mOsm/L Invalid Interpretation Code [facility] Comment on above: Performed By: #### 6 053769, 7392968, 40781887, 8195792984, 4712224528, 1407477, 0934868934 #### [facility] (DEFAULT) [address] [place] [address] 26748 Urea nitrogen/Creatinine [Mass ratio] 12.0 mg/mg Normal 4.6-16.2 [facility] Comment on above: Performed By: #### 6 891112, 1632672, 92723328, 8880582489, 7030335227, 0341103, 0955220291 #### [facility] (DEFAULT) [address] [place] [address] 46160 Free T4on 11-13-2022 Free T4 [Mass/Vol] 0.71 ng/dL Normal 0.61-1.12 [facility] Comment on above: Performed By: #### 6 951479, 3617590, 37661039, 4128591947, 6849845439, 0058270, 6689479797 #### [facility] (DEFAULT) [address] [place] [address] 92147 HgbA1c Standardon 11-13-2022 .Hb 13.7 Invalid Interpretation Code [facility] Comment on above: Performed By: #### 6 119698, 5880911, 48735486, 6851349333, 0879990757, 5658201, 0355285515 #### [facility] (DEFAULT) [address] [place] [address] 30338 .Hgb A1c 0.72 g/dL Invalid Interpretation Code [facility] Comment on above: Performed By: #### 6 462143, 3586289, 68651833, 0430930927, 0343139230, 5459489, 8494220862 #### [facility] (DEFAULT) [address] [place] [address] Glucose [Mass/Vol] 151 mg/dL Invalid Interpretation Code [facility] Comment on above: Performed By: #### 6 864745, 3059226, 36203563, 9050045823, 8763989724, 3965176, 4264239521 #### [facility] (DEFAULT) [address] [place] [address] HbA1c (Bld) [Mass fraction] 6.9 % High 4.6-6.2 [facility] Comment on above: Performed By: #### 6 036747, 7435181, 43152026, 2625415021, 6855064136, 5492344, 1017920364 #### [facility] (DEFAULT) [address] [place] [address] Lipid Panel Standardon 11-13 Cholesterol [Mass/Vol] 175.0 mg/dL Normal 66.0-200.0 [facility] Comment on above: Performed By: #### 6 062762, 2775631, 57212847, 1126437997, 5579140248, 5483946, 7078419459 #### [facility] (DEFAULT) [address] [place] [address] 82562 Cholesterol in HDL [Mass/Vol] 34 mg/dL Low 40-71 [facility] Comment on above: Performed By: #### 6 450407, 0065267, 18083007, 6660527192, 9448585877, 5077518, 6462693440 #### [facility] (DEFAULT) [address] [place] [address] 44052 Triglyceride [Mass/Vol] 131.0 mg/dL Normal 0.0-150.0 [facility] Comment on above: Performed By: #### 6 019202, 0315103, 67816007, 0798250056, 1447921968, 0248709, 4825033969 #### [facility] (DEFAULT) [address] [place] [address] 10600 Cholesterol in LDL [Mass/Vol] 115 mg/dL High 1-100 [facility] Comment on above: Performed By: #### 6 491386, 5144907, 62194284, 7565658341, 9010809995, 2622276, 7086721654 #### [facility] (DEFAULT) [address] [place] [address] 76389 Cholesterol.total/Carol Ann sterol in HDL [Mass ratio] 5.1 {ratio} High 0.0-4.5 [facility] Comment on above: Performed By: #### 6 883952, 1931053, 45224026, 7306518348, 8015007129, 8605268, 7784325822 #### [facility] (DEFAULT) [address] [place] [address] 27757 VLDL. 26 mg/dL Normal 5-40 [facility] Comment on above: Performed By: #### 6 326223, 8947256, 58065400, 9053561406, 5285722179, 1419214, 3564179194 #### [facility] (DEFAULT) [address] [place] [address] 92217 TSHon 11-13-2022 TSH Qn 2.33 m[IU]/L Normal 0.45-5.33 [facility] Comment on above: Performed By: #### 6 365814, 6215200, 32487233, 8675523931, 0662569039, 9899765, 1805721543 #### [facility] (DEFAULT) [address] [place] [address] 03798 Initial Visit (Otolaryngolog y)on 06-05-2022 Initial Visit [...] created us (more content not included)... Normal [facility] Tobacco Screening.on Adult depression screening assessment No [facility] Work Phone: Fall risk assessment a) No falls within the last year [facility] Work Phone: Tobacco use status CPHS a) Yes M [facility]tol[facility] Work Phone: Tobacco Screening. Yes [facility] l[facility] Work Phone: COVID-19, PCRon 04-25-2021 SARS-CoV-2 (COVID-19) RNA FALLON+probe Ql (Unsp spec) Not detected Normal Not Detect [facility] Comment on above: Result Comment: Test ing was performed using [employer] SARS-CoV-2 Assay. Negative results do not preclude [...] oropharyngeal and mid-turbinate specimens. Patient Fact Sheet: https://www.fda.gov/media/933602/download Provider Fact Sheet: https://www.fda.gov/media/645804/download FDA Specimen Types Link: https://www.fda.gov/medical-devices/ vyzwzowqppi-viefh-49-nha-ppyhdpf-lctrelz/eclz-rigkddr-isic-cov -2 Methodology: RT-PCR Performed By: #### C OVB #### [facility] [address] [place] [id number] Coding Summary.on 08-31-2020 Coding Summary. CODING DATE: 08/31/2020 FINAL [facility] STATUS: Home (Routine DC) PAYOR: Medicaid [...] F17.210 Nicotine dependence, cigarettes, uncomplicated Z79.899 Other fdc (current) drug therapy PYMT PROC [facility] STAT DESCRIPTION DOCTOR NAME DATE NOTE: The code number assigned matches the documented diagnosis and / or procedure in the patient's chart. However, the narrative phrase printed from the coding software may appear abbreviated, or result in slightly different terminology. Revised Coded By: Miranda Gan Revised Date Saved: 08/31/2020 12:26 pm Normal [facility] Discharge Instructionson Discharge Instructions [id number]#1. 00CD:127 Normal [facility] EMS Documentationon 08-24-20 20 EMS Documentation [id number]#1.0 0CD:127 Normal [facility] B hCG Qualon 08-23-2020 Beta hCG Ql Negative [facility] Comment on above: Performed By: #### 1 2339888, 3321732, 8959331, 8820725, 295952194, 6588286, 818065516, 37748763, 3663038, 9531544, 1363558, 4222430, 45161851 ####[facility] [address] [place] [address] [facility] 08-23-2020 Beta hydroxybutyrate [Moles/Vol] 1.04 mmol/L High 0.02-0.27 [facility] Comment on above: Performed By: #### 1 5456492, 3330833, 9385630, 9280488, 724785393, 0599951, 515344877, 34146975, 5163093, 7902362, 5147787, 0848594, 47828593 ####[facility] [id number] [place] [address] CT Abdomen/Pelvis w/ Contras ton 08-23-2020 CT [...] 300 Contrast amount in ml's: 100 Normal [facility] ED Clinical Summaryon 2019 ED Clinical Summary [place] [id number] ED Clinical Summary Person Information Name: MARY PANIAGUA[place] Age: 35 Years : 1985 Sex: Female Language: Pakistani PCP: MANNIE LEVY CNP Marital Status: Single Visit Id: Visit Reason: Vomiting; Nausea; Epigastric Pain; EPIGASTRIC PAIN, INTRACTABLE UPPER ABOMINAL PAIN Speciality: Acuity: 3 Enc Type: Observation Med Service: Medical Arrival: 08/22/2020 20:19:32 Discharge: LOS: 000 14:55 Checkin: 08/22/2020 20:19:32 Checkout: 08/23/2020 11:14:05 Dispo Type: Admitted as IP to this [facility] EVENTS: Event Name Event Status Request Date/Time [...] Patient Care Request 08/23/2020 11:06:57 AD[address]ESS: [id number] [facility] [id number] [facility] NOTES: MEDICAL INFORMATION: Prescriptions Given: PATIENT EDUCATION INFORMATION: Instructions: Follow up: DIAGNOSIS: 1:Epigastric abdominal pain; 2:IBS (irritable bowel syndrome); 3:Anxiety [facility] ED Note-Physicianon --20 20 ED Note-Physician Basic [...] vomiting. She states that she sees a service learning coordinator in [place]. She has not seen this service learning coordinator for quite some time. She states that [...] Appropriate mood & affect. Integumentary: Warm, Dry, [place] Medical Decision Making I rechecked the patient shortly after 12:30 AM. Still complains of the epigastric discomfort. She states she has had this frequently in the past and has been seen by a service learning coordinator in [facility]. They believe that it does relate to [...] 2 mg/mL Inj, 2 mg, IV Push [id number] [F], 1000 mL, IV promethazine 25 mg/mL Inj, 12.5 mg, IV Push Disposition Plan Patient Discharge Condition Unchanged Discharge Disposition Admit to observation Discharge Prescription List Prescriptions No active prescription medications Follow-up No qualifying data available Attestation Patient signed out to the attending emergency room physician at 2325 Patient was treated and evaluated by the Physician Freight Router. The attending physician was in the Emergency [...] (08/22/20:24:00) Lymph Auto: 7 % Low (08/22/20:24:00) [place] Auto: 4.8 % (08/22/20:24:00) Eos Auto: 0.6 % (08/22/20:24:00) Basophil Auto: 0.9 % (08/22/20:24:00) Neutro Absolute: 12.5 E9/L High (08/22/20:24:00) Lymph Absolute: 1 E9/L (08/22/20:24:00) [place] Absolute: 0.7 E9/L (08/22/20:24:00) Eos Absolute: 0.1 [...] Diagnostic Results No qualifying data available. [facility] Comment on above: Result Comment: Elec tronically Signed By: Pilo Castillo PA-C\.br\Date and Time Signed: 08/22/20 23:21 EST\.br\Electronically Co-Signed By: Blaine Lei MD\.br\Date and Time Co-Signed: 08/23/20 06:27 EST ED Patient Education Noteon 08-23-2020 ED Patient Education Note [facility] ED Patient Summaryon 020 ED Patient Summary [place] [id number] Patient Discharge Instructions Person Information Name: MARY PANIAGUA Age: 35 Years Arrival Date: 08/22/2020 20:19:32 Discharge Diagnosis: 1:Epigastric abdominal pain; 2:IBS (irritable bowel syndrome); 3:Anxiety Primary Care Physician: MANNIE LEVY CNP Provider Information Primary Provider: Blaine Lei MD Advanced Echo Vasc Tech:Pilo Castillo PA-C The exam and treatment you received in the Emergency Department were for an urgent problem and are not intended as complete care. It is important that you follow up with a doctor, nurse practitioner, or physician?s occupational therapy assistant for ongoing care. If your symptoms become worse or you do not improve as expected and you are unable to reach your usual health care provider, you should return to the Emergency Department. We are available 24 hours a day. MARY PANIAGUA has been given the following [...] opioids can be used to help relieve zehglles-yd-juxats pain and are often prescribed following a [...] be struggling with addiction, tell your health healthcare business analyst and ask for guidance or call [facility] National Helpline at 2-325-578-WBTZ. v Source: US Department of Health and Human Services/Center for Disease Control & Prevention [facility] Medications Given: Medication Dose Route [...] to serve you. Thank you for choosing [facility] Patient Education Materials: JAY Nunez RACHEL , have received the following patient education materials/instructions and have verbalized understanding: Patient Education Materials: Follow-up Instructions: Patient Signature Date Clinician/Nurse Signature ___ Date 08/23/2020 11:14:07 Normal [facility] JbdS8uyy 08-23-2020 HbA1c (Bld) [Mass fraction] 6.4 % High <=5.9 [facility] Comment on above: Performed By: #### 1 [id number], 9953706, 6411390, 0137603, 293078509, 1683715, 910106616, 37396780, 2807628, 4470060, 7159733, 9574693, 47189491 ####[facility] [address] [place] [address] History and Physicalon 08-23 History and Physical [...] (08/22/20:24:00) Lymph Auto: 7 % Low (08/22/20:24:00) [place] Auto: 4.8 % (08/22/20:24:00) Eos Auto: 0.6 % (08/22/20:24:00) Basophil Auto: 0.9 % (08/22/20:24:00) Neutro Absolute: 12.5 E9/L High (08/22/20:24:00) Lymph Absolute: 1 E9/L (08/22/20:24:00) [place] Absolute: 0.7 E9/L (08/22/20::00) Eos Absolute: 0.1 [...] made to ensure accuracy, however, inadvertently computerized police liaison mistakes may be present. Problem List/Past Medical [...] she is in agreement. Was able to application counselor her on smoking cessation. She should follow-up with her primary care physician for an EGD if needed. No changes are being made to her chronic medications at this time. *Please place this as my admission H&P as well as discharge summary* Normal [facility] Comment on above: Result Comment: Elec tronically Signed By: KSENIA MCINTYRE, Romario\.david\Date and Time Signed: 08/23/20 16:30 EST Inpatient Clinical Summaryon 08-23-2020 Inpatient Clinical Summary [place] [id number] Clinical Summary Person Information: Name: MARY PANIAGUA Age: 35 Years : 1985 Sex: Female PCP: MANNIE LEVY CNP Marital Status: Single Race: White Ethnicity: Non- or Language: Pakistani Visit Id: Visit Reason: Vomiting; Nausea; Epigastric Pain; EPIGASTRIC PAIN, INTRACTABLE UPPER ABOMINAL PAIN Speciality: Acuity: Enc Type: Observation Med Service: Medical Arrival: 08/22/2020 20:19:32 Discharge: Dispo Type: Admitted as IP to this Hosp Address: [address] [place] [address] Provider Notes: Diagnosis: 1:Epigastric abdominal pain; 2:IBS [...] With: Address: When: MANNIE LEVY CNP [address] [facility] [address] [place] [address] [phone] Within 1 to 2 weeks Patient Education Information: Low-FODMAP Eating Plan; Diet for Irritable Bowel Syndrome Normal [facility] Inpatient Patient Summaryon 08-23-2020 Inpatient Patient Summary [place] [id number] Patient Discharge Instructions PERSON INFORMATION Name: MARY PANIAGUA Date of : 1985 Current Date: 08/23/2020 16:37:09 PHYSICIANS Admitting Physician: Ronaldo Soni MD Primary Care Physician: MANNIE LEVY CNP PCP Phone Number: [phone] Comment: Discharge Diagnosis: 1:Epigastric abdominal pain; 2:IBS [...] With: Address: When: MANNIE LEVY CNP [address] [facility] [address] [place] [address] [phone] Within 1 to 2 weeks In the [...] to follow. Work with a diet and pet nutrition specialist (dietitian) to make a low-FODMAP eating [...] Gluten-free pasta, bread, or cereal. Rice noodles. [place] tortillas. Vegetables ? Eggplant, zucchini, cucumber, peppers, green beans, [place] sprouts, cruz sprouts, lettuce, arugula, kale, Mongolian chard, spinach, candelario greens, bok esthela, summer [...] amounts of goat cheese, brie, mozzarella, parmesan, beninese, and other hard cheeses. Meats and other [...] 04/07/2018 Document Revised: 07/24/2018 Document Reviewed: 04/07/2018 [employer] Patient Education ? 2019 Fitocracy. Diet for Irritable Bowel Syndrome When you [...] your health care provider and diet and pet nutrition specialist (dietitian) to find the eating plan [...] care provider if you should take an wdwn-oht-xcrkdbb probiotic to help restore healthy bacteria in [...] symptoms worse: ? Fatty foods, such as japanese fries. ? Foods that contain gluten, such [...] for Functional Gastrointestinal Disorders: www.iffgd.org ? National [place] of Diabetes and Digestive and Kidney Diseases: [...] Your health care provider or diet and pet nutrition specialist (dietitian) may recommend that you eat more foods that contain fiber. This information is not intended to replace advice given to you by your health care provider. Make sure you discuss any questions you have with your health care provider. Document Released: 10/31/2004 Document Revised: 12/01/2019 Document Reviewed: 04/14/2018 [employer] Patient Education ? 2019 [employer] Medication Leaflets: You may receive a survey from [employer] asking you to rate your care experience. Your feedback is important and will help us understand what we do well and how we can improve the quality of care we provide to you, your loved ones and our community. It?s an honor to serve you. Thank you for choosing [facility] Normal [facility] Magnesiumon 08-23-2020 Magnesium [Mass/Vol] 1.7 mg/dL Normal 1.3-2.4 Fish [facility] Comment on above: Performed By: #### 1 [id number], 7044862, 5233272, 9214226, 180865154, 9659846, 197205107, 70036173, 7020158, 7629270, 3045024, 7165747, 69001509 ####[facility] [address] [place] [address] Monitor Recordon 08-23-2020 Monitor Record [id number]. [id number]#1. 00CD:127 Normal [facility] Monitor Record 170.. 20 [id number]#1. 00CD:127 Normal [facility] Monitor Record [id number]. [id number]#1. 00CD:127 Normal [facility] Monitor Record [id number]. [id number]#1. 00CD:127 Normal [facility] Monitor Record [id number]. [id number]#1. 00CD:127 Normal [facility] Monitor Record [id number]. 20 [id number]#1. 00CD:127 Normal [facility] Monitor Record [id number] 20 [id number]#1. 00CD:127 Normal [facility] Monitor Record [id number]. 20 [id number]#1. 00CD:127 Normal [facility] Monitor Record [id number]. 20 [id number]#1. 00CD:127 Normal [facility] Patient Education - Texton 1 Patient Education - Text Gastroenterology Low-FODMAP Eating Plan FODMAPs (fermentable oligosaccharides, disaccharides, monosaccharides, and polyols) are sugars that are hard for some people to digest. A low-FODMAP eating plan may help some people who have bowel (intestinal) diseases to manage their symptoms. This meal plan can be complicated to follow. Work with a diet and pet nutrition specialist (dietitian) to make a low-FODMAP eating [...] Gluten-free pasta, bread, or cereal. Rice noodles. [place] tortillas. Vegetables ? Eggplant, zucchini, cucumber, peppers, green beans, [place] sprouts, cruz sprouts, lettuce, arugula, kale, Mongolian chard, spinach, candelario greens, bok esthela, summer [...] amounts of goat cheese, brie, mozzarella, parmesan, beninese, and other hard cheeses. Meats and other [...] 04/07/2018 Document Revised: 07/24/2018 Document Reviewed: 04/07/2018 [employer] Patient Education ? 2020 Fitocracy. Diet for Irritable Bowel Syndrome When you [...] your health care provider and diet and pet nutrition specialist (dietitian) to find the eating plan [...] care provider if you should take an dodv-oqn-xmabcqk probiotic to help restore healthy bacteria in [...] symptoms worse: ? Fatty foods, such as japanese fries. ? Foods that contain gluten, such [...] for Functional Gastrointestinal Disorders: www.iffgd.org ? National [place] of Diabetes and Digestive and Kidney Diseases: [...] Your health care provider or diet and pet nutrition specialist (dietitian) may recommend that you eat more foods that contain fiber. This information is not intended to replace advice given to you by your health care provider. Make sure you discuss any questions you have with your health care provider. Document Released: 10/31/2004 Document Revised: 12/01/2019 Document Reviewed: 04/14/2018 [employer] Patient Education ? 2019 [employer] Normal [facility] RAD - Preliminary Cat Scan R eporton 08-23-2020 RAD - Preliminary Cat Scan Report [id number]#1.0 0CD:127 Normal [facility] U Drug Screenon 08-23-2020 Opiates Screen Ql (U) Positive Abnormal Negative [facility] Comment on above: Result Comment: No c onfirmation requested by Physican\Results verified by repeat analysis\Unconfirmed by alternate method\Critical Result UD_OPIA:POS Called to BEL ESTRADA AT ER by GILSON PALMA And Read Back For Confirmation at: 08/23/2020 07:57:24 Negative Cutoff: <300 ng/mL Performed By: #### 2 681039 ####[facility] [address] [place] [address] Amphetamines Screen method >1000 ng/mL Ql (U) Negative Normal Negative [facility] Comment on above: Result Comment: Nega tive Cutoff: <1000 ng/mL Performed By: #### 2 962243 ####[facility] [address] [place] [address] Barbiturates Screen Ql (U) Negative Normal Negative [facility] Comment on above: Result Comment: Nega tive Cutoff: <200 ng/mL Performed By: #### 2 488229 ####[facility] [address] [place] [address] Benzodiazepines Ql (U) Negative Normal Negative [facility] Comment on above: Result Comment: Nega tive Cutoff: <200 ng/mL Performed By: #### 2 361235 ####[place] [address] [place] [address] Cocaine Ql (U) Negative Normal Negative [facility] Comment on above: Result Comment: Nega tive Cutoff: <300 ng/mL Performed By: #### 2 087529 ####[address] [address] Phencyclidine Screen method >25 ng/mL Ql (U) Negative Normal Negative [facility] Comment on above: Result Comment: Nega tive Cutoff: <25 ng/mL These drug screen results are to be used for medical (i.e., treatment) purposes only. Unconfirmed drug screening results must not be used for non-medical purposes (e.g., employment testing, legal testing). Performed By: #### 2 725841 ####[address] [address] Tetrahydrocannabinol Screen method >50 ng/mL Ql (U) Negative Normal Negative [facility] Comment on above: Result Comment: Nega tive Cutoff: <50 ng/mL Performed By: #### 2 951350 ####[address] [address] UA With Cult Reflexon 2019 Bilirubin Ql (U) Negative Normal Negative [facility] Comment on above: Performed By: #### 1 8535618 ####[address] [address] Clarity (U) CLEAR Normal Clear [facility] Comment on above: Performed By: #### 1 9033422 ####[place] [address] [place] [address] Color (U) STRAW Abnormal Yellow [facility] Comment on above: Performed By: #### 1 3811040 ####[address] [address] Epithelial cells.squamous LM.HPF (Urine sed) [#/Area] 0-2 Normal 0-2 [facility] Comment on above: Performed By: #### 1 4645726 ####[facility] [address] [place] [address] Glucose Test strip (U) [Mass/Vol] 2+ Abnormal Negative [facility] Comment on above: Performed By: #### 1 7315075 ####[address] [address] Hemoglobin Ql (U) Negative Normal Negative [facility] Comment on above: Performed By: #### 1 0826775 ####[address] [address] Ketones (U) [Mass/Vol] 1+ Abnormal Negative [facility] Comment on above: Performed By: #### 1 2420684 ####[address] [address] [place].plasma/[place]. RBC (Bld) [Mass ratio] 0-3 Normal 0-3 [facility] Comment on above: Performed By: #### 1 9631498 ####[facility] [address] [place] [address] Nitrite Ql (U) Negative Normal Negative [facility] Comment on above: Performed By: #### 1 5921660 ####[address] [address] pH (U) 7.5 [pH] 5.0-9.0 [facility] Comment on above: Performed By: #### 1 9485191 ####[address] [address] Protein (U) [Mass/Vol] Negative Normal Negative [facility] Comment on above: Performed By: #### 1 9257156 ####[address] [address] Specific gravity (U) [Rel density] 1.015 1.005-1.030 [facility] Comment on above: Performed By: #### 1 0668079 ####[facility] [address] [place] [address] UA Spec Desc Clean Catch Normal [facility] Comment on above: Performed By: #### 1 0571591 ####[facility] [address] [place] [address] Urobilinogen Qn (U) 0.2 {Ace'U}/dL Normal 0.0-1.0 [facility] Comment on above: Performed By: #### 1 3475254 ####[facility] [address] [place] [address] WBC Auto Ql (U) Negative Normal Negative [facility] Comment on above: Performed By: #### 1 4448977 ####[facility] [address] [place] [address] WBC LM.HPF (Urine sed) [#/Area] 0-5 Normal 0-5 [facility] Comment on above: Performed By: #### 1 1311007 ####[facility] [address] [place] [address] Auto Diffon 08-22-2020 Basophils/100 WBC (Bld) 0.9 % Normal 0.0-2.0 [facility] Comment on above: Order Comment: Order Added by Discern Expert. Performed By: #### 1 6992360, 6877302, 0986368, 2583851, 994755457, 9325457, 974244408, 49494396, 5345117, 1374665, 3160236, 8642947, 36927763 ####[facility] [address] [place] [address] Basophils/Leukocytes Auto (Bld) [Pure # fraction] 0.1 E9/L Normal 0.0-0.2 [facility] Comment on above: Order Comment: Order Added by Discern Expert. Performed By: #### 1 9240228, 4690865, 1821896, 1911776, 729283643, 6558101, 556421249, 81835581, 7766710, 8093440, 7283987, 0007428, 71352865 ####[facility] [address] [place] [address] Eosinophils/100 WBC (Bld) 0.6 % Normal 0.0-8.0 [facility] Comment on above: Order Comment: Order Added by Discern Expert. Performed By: #### 1 8596297, 6139536, 7358380, 4915492, 603112282, 6138164, 443173530, 06821742, 3367676, 7655157, 5463587, 9065574, 11066735 ####[place] [address] [place] [address] Eosinophils/Leukocytes Auto (Bld) [Pure # fraction] 0.1 E9/L Normal 0.0-0.5 [facility] Comment on above: Order Comment: Order Added by Discern Expert. Performed By: #### 1 2757843, 9358120, 8084717, 7468584, 976513787, 7852242, 884726882, 48659670, 5032969, 6977320, 0434409, 8825822, 02170887 ####[place] [address] [place] [address] Lymphocytes/100 WBC (Bld) 7.0 % Low 14.0-50.0 [facility] Comment on above: Order Comment: Order Added by Discern Expert. Performed By: #### 1 5903211, 8903586, 6620873, 0963557, 002898045, 2507358, 448167970, 36038741, 8411762, 6113116, 9134098, 3639203, 16884223 ####[facility] [address] [place] [address] Lymphocytes/Leukocytes Auto (Bld) [Pure # fraction] 1.0 E9/L Normal 1.0-4.0 [facility] Comment on above: Order Comment: Order Added by Discern Expert. Performed By: #### 1 5582101, 1065673, 6160714, 8721556, 413258402, 2105666, 111651921, 48702695, 0586425, 4197776, 4099200, 3954809, 52169487 ####[facility] [address] [place] [address] Monocytes/100 WBC (Bld) 4.8 % Normal 4.0-14.0 [facility] Comment on above: Order Comment: Order Added by Discern Expert. Performed By: #### 1 8379247, 2673377, 6907661, 3305818, 345647147, 7763649, 553644923, 11405869, 6149310, 9709549, 6144746, 3114747, 98341275 ####[facility] [address] [place] [address] Monocytes/Leukocytes Auto (Bld) [Pure # fraction] 0.7 E9/L Normal 0.2-1.0 [facility] Comment on above: Order Comment: Order Added by Discern Expert. Performed By: #### 1 5702678, 7466968, 5317382, 2890487, 990372655, 8239939, 632371750, 38939350, 4942856, 8198444, 0894553, 2313935, 13859457 ####[facility] [address] [place] [address] Neutrophils/100 WBC (Bld) 86.7 % High 36.0-75.0 [facility] Comment on above: Order Comment: Order Added by Discern Expert. Performed By: #### 1 1522087, 4278151, 7075556, 9265238, 770012854, 0488420, 855349196, 83335326, 1941562, 5848240, 3303478, 4171081, 36764379 ####[facility] [address] [place] [address] Neutrophils/Leukocytes Auto (Bld) [Pure # fraction] 12.5 E9/L High 2.0-7.5 [facility] Comment on above: Order Comment: Order Added by Discern Expert. Performed By: #### 1 2276830, 2869329, 4506574, 1647037, 812497448, 7007184, 893701681, 23304183, 4856845, 2066541, 4738197, 2554164, 07196901 ####[facility] [address] [place] [address] BMPon 08-22-2020 Creatinine [Mass/Vol] 0.8 mg/dL Normal 0.5-1.3 [facility] Comment on above: Performed By: #### 1 8300332, 3943573, 2542694, 6620185, 514554642, 5686820, 764852058, 85867756, 2848485, 5733801, 0471858, 7238402, 95136866 ####[facility] [address] [place] [address] Urea nitrogen [Mass/Vol] 11 mg/dL Normal 5-21 [facility] Comment on above: Performed By: #### 1 2022661, 3841637, 7910525, 4704837, 568174980, 7261506, 212070634, 78248327, 6188410, 7166314, 7223705, 5292340, 85799084 ####[facility] [address] [place] [address] Urea nitrogen/Creatinine [Mass ratio] 14 No Units Normal 10-20 [facility] Comment on above: Performed By: #### 1 5124169, 3100540, 5154275, 0906999, 147614902, 4426467, 409214412, 09636188, 3726731, 6335407, 1360812, 8666338, 72185501 ####[facility] [address] [place] [address] Anion gap [Moles/Vol] 15 mmol/L Normal 6-16 [facility] Comment on above: Performed By: #### 1 8372599, 8379507, 7010257, 4732579, 476288207, 4021407, 639157914, 45317228, 2462396, 8848769, 3288515, 3278279, 88597565 ####[facility] [address] [place] [address] Calcium [Mass/Vol] 9.4 mg/dL Normal 8.9-11.1 [facility] Comment on above: Performed By: #### 1 0146282, 3804711, 9903201, 7730561, 161077654, 1653141, 930513159, 04313823, 5132971, 1645235, 3366137, 0061407, 54820050 ####[facility] [address] [place] [address] Chloride [Moles/Vol] 102 mmol/L Normal 101-111 [facility] Comment on above: Performed By: #### 1 4084527, 9933504, 9806947, 7914196, 439952429, 2227838, 066941162, 26133469, 7033274, 2598258, 3455238, 3297180, 17409220 ####[facility] [address] [place] [address] CO2 [Moles/Vol] 22 mmol/L Normal 21-31 [facility] Comment on above: Performed By: #### 1 5112966, 3052978, 9545487, 0237743, 543627080, 3225874, 519703011, 08086390, 5977064, 5497617, 3701807, 1764648, 79492243 ####[facility] [address] [place] [address] Glucose [Mass/Vol] 208 mg/dL High 55-199 [facility] Comment on above: Result Comment: If t his glucose result represents a fasting glucose, interpretation should refer to the following reference range: 55-99 mg/dL Performed By: #### 1 3979701, 5097301, 5067087, 0194227, 127889150, 7270412, 236750114, 22323097, 7809758, 0680336, 8313682, 4168542, 64321949 ####[facility] [address] [address] Potassium [Moles/Vol] 3.4 mmol/L Low 3.5-5.3 [facility] Comment on above: Performed By: #### 1 8699003, 8913718, 3789914, 1202878, 915016874, 7051591, 892767530, 93560246, 1768143, 9971073, 0893595, 4940757, 31308679 ####[facility] [address] [place] [address] Sodium [Moles/Vol] 136 mmol/L Normal 135-145 [facility] Comment on above: Performed By: #### 1 4249494, 6644010, 7544646, 0484614, 729403317, 2539185, 355993595, 21360687, 7875338, 4854793, 0127938, 3357006, 09475912 ####[place] [address] [place] [address] CBC w/ Auto Diffon 0 Erythrocyte distribution width (RBC) [Ratio] 14.1 % Normal 10.9-14.2 [facility] Comment on above: Performed By: #### 1 0719838, 6741215, 9208308, 5400695, 505677270, 3218635, 236182114, 92008586, 7910357, 9945859, 3779513, 0575766, 53385610 ####[place] [address] [place] [address] Hematocrit (Bld) [Volume fraction] 42.9 % Normal 34.0-46.0 [facility] Comment on above: Performed By: #### 1 4969864, 5832661, 5735687, 1316998, 307127702, 1556833, 033746472, 02228759, 4210842, 5568578, 0773270, 4091191, 18248104 ####[place] [address] [place] [address] Hemoglobin (Bld) [Mass/Vol] 13.9 g/dL Normal 12.0-16.0 [facility] Comment on above: Performed By: #### 1 0726925, 6629177, 2844129, 8702620, 254844995, 8009533, 742348762, 53104631, 1724194, 1616284, 7667369, 3011555, 21965140 ####[facility] [address] [place] [address] MCH (RBC) [Entitic mass] 28.2 pg Normal 27.0-34.0 [facility] Comment on above: Performed By: #### 1 6212149, 4711918, 2356858, 4418417, 551426044, 6882078, 862077814, 60821121, 4559243, 0092749, 2365765, 1001001, 11296888 ####[facility] [address] [place] [address] MCHC (RBC) [Mass/Vol] 32.4 g/dL Normal 31.4-36.0 [facility] Comment on above: Performed By: #### 1 3438872, 9882880, 4344563, 4982734, 027532631, 8487680, 367164331, 47535994, 2989075, 2120230, 0140848, 6590977, 84513600 ####[place] [place] [address] MCV (RBC) [Entitic vol] 87.1 fL Normal 80.0-100.0 [facility] Comment on above: Performed By: #### 1 8279929, 6134426, 2790880, 8555090, 845571381, 9327588, 690624911, 88789059, 4858518, 3010989, 4413885, 6660711, 72396294 ####[facility] [address] [place] [address] Platelet mean volume (Bld) [Entitic vol] 7.4 fL Normal 6.4-10.8 [facility] Comment on above: Performed By: #### 1 1481747, 9696821, 6097839, 8716396, 927892196, 0929253, 573071691, 45439842, 5149684, 9763883, 1708502, 3381901, 36169433 ####[facility] [address] [place] [address] Platelets (Bld) [#/Vol] 357.0 E9/L Normal 150.0-500.0 [facility] Comment on above: Performed By: #### 1 9965650, 3028272, 4440694, 2587802, 173275968, 2958872, 181503716, 57181303, 7181389, 9061262, 6602731, 5731390, 33613418 ####[facility] [address] [place] [address] RBC (Bld) [#/Vol] 4.9 E12/L Normal 4.3-5.9 [facility] Comment on above: Performed By: #### 1 9263138, 6412658, 7392511, 6842422, 647165327, 4144958, 593649451, 76566416, 8703562, 4204264, 3488390, 6005156, 97847879 ####[address] [address] WBC corrected for nucl RBC Auto (Bld) [#/Vol] 14.4 E9/L High 4.0-11.0 [facility] Comment on above: Performed By: #### 1 1381152, 2284619, 0462191, 1957440, 416300594, 8931407, 501633961, 17249362, 6218492, 3938753, 5402849, 8212489, 53621621 ####[facility] [address] [place] [address] CRPon 08-22-2020 CRP [Mass/Vol] 0.6 mg/dL Normal <=1.9 [facility] Comment on above: Performed By: #### 1 5621905, 0048504, 4135119, 2469157, 599510613, 0248595, 796704447, 27422575, 4933539, 0784345, 0524930, 4541285, 90249256 ####[facility] [address] [place] [address] Consent for Treatmenton 07-26 Consent for Treatment [id number] 1203 [id number]#1. 00CD:127 Normal [facility] Hep Func Panelon 08-22-2020 Albumin [Mass/Vol] 1.7 g/dL Normal 1.1-2.2 [facility] Comment on above: Performed By: #### 1 9260438, 3828120, 5286421, 4673039, 192776990, 9731976, 180996281, 82456297, 0103865, 3877505, 4918869, 6935380, 84522960 ####[facility] [address] [place] [address] Albumin [Mass/Vol] 4.8 g/dL Normal 3.3-5.0 [facility] Comment on above: Performed By: #### 1 5195169, 5952962, 1431382, 7268913, 648927780, 5710777, 984265184, 62401367, 8072362, 4352701, 8862687, 6763186, 07643171 ####[facility] [address] [place] [address] ALP [Catalytic activity/Vol] 75 Int._Unit/L Normal 21-98 [facility] Comment on above: Performed By: #### 1 3024125, 1805956, 1873027, 3943411, 049614739, 6711734, 057489473, 47038957, 2102165, 9919757, 5271715, 6494000, 83912818 ####[facility] [address] [place] [address] ALT No additional P-5'-P [Catalytic activity/Vol] 14 Int._Unit/L Normal 6-46 [facility] Comment on above: Performed By: #### 1 1628303, 7244208, 3344331, 6429016, 421414650, 2206162, 619174558, 00507464, 2629927, 9756275, 7438316, 7690533, 59882832 ####[facility] [address] [place] [address] AST [Catalytic activity/Vol] 13 Int._Unit/L Normal 5-43 [facility] Comment on above: Performed By: #### 1 2033667, 6978454, 0943261, 9351689, 911195912, 6746669, 652096084, 92075949, 7475245, 1513059, 9921815, 1777494, 06035066 ####[facility] [address] [place] [address] Bilirubin [Mass/Vol] 1.0 mg/dL Normal 0.0-1.1 [facility] Comment on above: Performed By: #### 1 9190399, 7238720, 5822134, 7788902, 263675958, 7561404, 704844078, 46565578, 4706649, 5166380, 5003680, 8485920, 10489145 ####[facility] [address] [place] [address] Bilirubin.direct [Mass/Vol] 0.9 mg/dL Normal 0.1-0.9 [facility] Comment on above: Performed By: #### 1 7610272, 8092747, 2150403, 4907116, 160409258, 0770641, 721866267, 38560253, 8311181, 6882378, 8526970, 5288064, 28150041 ####[facility] [address] [place] [address] Bilirubin.direct [Mass/Vol] 0.1 mg/dL Normal 0.1-0.4 [facility] Comment on above: Performed By: #### 1 7877207, 5388196, 1559285, 6154260, 557932943, 7021522, 705693534, 05183618, 3843397, 3868831, 2454944, 9054897, 66331866 ####[facility] [address] [place] [address] Globulin (S) [Mass/Vol] 2.9 g/dL Normal 1.4-4.0 F [facility] Comment on above: Performed By: #### 1 4274043, 1715706, 9423204, 4713072, 891593221, 4130211, 397979387, 26853856, 6175772, 1557034, 6558588, 2191774, 74534611 ####[facility] [address] [place] [address] Protein [Mass/Vol] 7.7 g/dL Normal 6.0-7.8 [facility] Comment on above: Performed By: #### 1 9414585, 5540039, 4085233, 6349116, 871246099, 0500341, 673000816, 43452968, 5960551, 0099201, 4571133, 5425627, 95494820 ####[facility] [address] [place] [address] Lactic Acidon 08-22-2020 Lactate [Mass/Vol] 1.1 mmol/L Normal 0.5-2.2 [facility] Comment on above: Performed By: #### 1 6363025, 1960872, 3494849, 0737597, 329148237, 8289373, 635847053, 41414582, 2165832, 9301634, 5985243, 2757501, 03439089 ####[facility] [address] [place] [address] Lipase Levelon 08-22-2020 Lipase [Catalytic activity/Vol] 25 unit/L Normal 13-58 [facility] Comment on above: Performed By: #### 1 6966161, 8676072, 1694305, 7867439, 763154296, 2362821, 507488203, 63391687, 0983709, 3799606, 4826329, 7585258, 60765405 ####[address] [place] [address] Pre-Arrival Noteon 0 Pre-Arrival Note Pre-Arrival Summary Name: , citizens Current Date: 08/22/2020 20:23:24 EST Gender: Female Date of : Age: 35 Pre-Arrival Type: EMS ETA: 08/22/2020 20:35:00 EST Primary Care Physician: Presenting Problem: epigastric pain Pre-Arrival User: David Pham RN Referring Source: Location: PA Completion Date/Time: 08/22/2020 20:05:00 [facility] Emergency Department Pre-Hospital Report Form Vital Signs: 162/109, 84 pulse, 98%ra Pre-Hospital Report: epigatric pain Treatment in Route: Response to Treatment: Misc. Issues: Normal [facility] Sed Rate Automatedon 020 ESR (Bld) [Velocity] 6 mm/h Normal 0-34 [facility] Comment on above: Performed By: #### 1 4766761, 1741130, 4066370, 9841362, 539585399, 2101462, 015590626, 96748137, 8644472, 8498034, 3565281, 5155919, 17938871 #### [facility] [address] [place] [address] eGFRon 08-22-2020 GFR/1.73 sq M predicted among blacks MDRD (S/P/Bld) [Vol rate/Area] mL/min/{1.73_m2} Normal >=59 [facility] Comment on above: Order Comment: Order added by Discern Expert. Result Comment: eGFR is race adjusted. AA=. Performed By: #### 1 5255020, 6598244, 8360830, 7662180, 370389458, 0832343, 276365816, 52405313, 5691844, 0197655, 4740024, 1279675, 90655576 ####[facility] [address] [place] [address] GFR/1.73 sq M predicted among non-blacks MDRD (S/P/Bld) [Vol rate/Area] mL/min/{1.73_m2} Normal >=59 [facility] Comment on above: Order Comment: Order added by Discern Expert. Result Comment: [place] kidney disease could be indicated at eGFR's of less than 60 mL/min/1.73m2. Kidney failure is indicated at less than 15 mL/min/1.73m2. Performed By: #### 1 8529243, 8387559, 7999731, 1638199, 830525101, 4493504, 374038264, 90338592, 3044728, 1235667, 4729154, 4919340, 51244305 ####[facility] [address] [place] [address] Hemoglobin A1con 08-02-2020 HbA1c (Bld) [Mass fraction] 6.3 % Critically high 4.8-5.9 [facility] Comment on above: Performed By: #### A 1C #### [facility] [address] [place] [id number] US NON OB TRANSVAGINALon US NON OB [...] Ab Jennings MD 07/31/[address] [facility] US PELVIS COMPLETEon 020 US PELVIS COMPLETE [...] Ab Jennings MD 07/31/[address] [facility] Comprehensive Metabolic Pane samina 07-10-2020 Anion gap [Moles/Vol] 12 mmol/L Normal -15 [facility] Comment on above: Performed By: #### C MP #### [facility] [address] [place] [address] Albumin [Mass/Vol] 4.3 g/dL Normal 3.5-4.6 [facility] Comment on above: Performed By: #### C MP #### [facility] [address] [place] [address] ALP [Catalytic activity/Vol] 75 U/L Normal 40-130 [facility] Comment on above: Performed By: #### C MP #### [facility] [address] [place] [address] ALT [Catalytic activity/Vol] 7 U/L Normal 0-33 [facility] Comment on above: Performed By: #### C MP #### [facility] [address] [place] [address] AST [Catalytic activity/Vol] 7 U/L Normal 0-35 [facility] Comment on above: Performed By: #### C MP #### [facility] [address] [place] [address] Bilirubin [Mass/Vol] mg/dL Normal 0.2-0.7 [facility] Comment on above: Performed By: #### C MP #### [facility] [address] [place] [address] Calcium [Mass/Vol] 9.1 mg/dL Normal 8.5-9.9 [facility] Comment on above: Performed By: #### C MP #### [facility] [address] [place] [address] Chloride [Moles/Vol] 100 mmol/L Normal 95-107 [facility] Comment on above: Performed By: #### C MP #### [facility] [address] [place] [address] CO2 [Moles/Vol] 27 mmol/L Normal 20-31 [facility] Comment on above: Performed By: #### C MP #### [facility] [address] [place] [address] Creatinine [Mass/Vol] 0.70 mg/dL Normal 0.50-0.90 [facility] Comment on above: Performed By: #### C MP #### [facility] [address] [place] [address] GFR >60.0 Normal >60 [facility] Comment on above: Result Comment: >60 mL/min/1.73m2 EGFR, calc. for ages 18 and older using the MDRD formula (not corrected for weight), is valid for stable renal function. Performed By: #### C MP #### [facility] [address] [place] [address] GFR/1.73 sq M.predicted among blacks MDRD (S/P/Bld) [Vol rate/Area] mL/min/{1.73_m2} Normal >60 [facility] Comment on above: Result Comment: >60 mL/min/1.73m2 EGFR, calc. for ages 18 and older using the MDRD formula (not corrected for weight), is valid for stable renal function. Performed By: #### C MP #### [facility] [address] [place] [address] Globulin (S) [Mass/Vol] 2.3 g/dL Normal 2.3-3.5 [facility] Comment on above: Performed By: #### C MP #### [facility] [address] [place] [address] Glucose [Mass/Vol] 117 mg/dL Critically high 70-99 M [facility] Comment on above: Performed By: #### C MP #### [facility] [address] [place] [address] Potassium [Moles/Vol] 3.6 mmol/L Normal 3.4-4.9 [facility] Comment on above: Performed By: #### C MP #### [facility] [address] [place] [address] Protein [Mass/Vol] 6.6 g/dL Normal 6.3-8.0 [facility] Comment on above: Performed By: #### C MP #### [facility] [address] [place] [address] Sodium [Moles/Vol] 139 mmol/L Normal 135-144 [facility] Comment on above: Performed By: #### C MP #### [facility] [address] [place] [address] Urea nitrogen [Mass/Vol] 8 mg/dL Normal 6-20 [facility] Comment on above: Performed By: #### C MP #### [facility] [address] [place] [address] TSH w/Reflexon 07-10-2020 TSH w/Reflex 1.110 uIU/mL Normal 0.440-3.86 [facility] Comment on above: Performed By: #### T SHR #### [facility] [address] [place] [address] CASE MANAGEMon 11-22-2019 CASE MANAGEM HNO ID: [id number] Author: Sesay (Sw) [place] Service: ? Author Type: Tape Cutting Machine Operator Type: Care Mgt Progress Note Filed: [...] essentially having to make two trips from [place]. SW met with Pt at the bedside. [...] time, there is no indication to involve [facility]. Pt is protective and has [...] relationship. SW also provided contact information for [facility]. At this time, Jose returned back home and Pt will need to contact [facility] to set up hospital discharge transportation when medically cleared. AVRIL will remain available if additional needs arise. SIGNATURE: VERN Clark PATIENT NAME: Mary Paniagua DATE: November 22, 2019 TIME: 2:28 PM PAGER/CONTACT #: [phone] [facility] CASE MGT INIT CARMINAon 2019 CASE MGT INIT [facility] HNO ID: [id number] Author: Shama Huggins (Sw) Service: ? Author Type: Tape Cutting Machine Operator Type: Care Mgt Initial Assessment Filed: 11/22/2019 11:17 AM Note Text: CARE MANAGEMENT: ASSESSMENT AND DISCHARGE PLAN SERVICE DATE: November 22, 2019 SERVICE TIME: 9:53 AM PRIMARY CARE PHYSICIAN: No primary care provider on file. 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 ) Pt is a 34 year old [...] the following: She currently is living in [place] with her 8 year old son, Jovan, and her with whom she is currently x4 years. Pt has a 16 year old daughter who lives with her father in [place]. Pt's is not the FOB. FOB is Garth Alamo, he and Pt are not in a relationship, he does not plan to be involved with the baby. Pt plans to establish paternity and file for child support. Pt lost her job at [employer] in August d/t missed work from health/ [...] Tx program and [facility] in [facility]. Pt reported that she was addicted to Crack Cocaine about four years ago and went into treatment at [facility] by the [place] from August 2016-January 2017. Pt has been sober since starting her Tx program. Pt received three tox screens during her on 05/10/19 (pain panel), 07/16/19 (pain panel), and 11/19/19 (utox), all of which were negative. Pt also had involvement with [facility] and her son was in foster care while Pt was in [place]. Pt stated her son was returned to [...] worked with her PCP, Mannie Martin of [facility], who prescribed Pt Lexapro with good effect. Pt reports she has been feeling much better since starting Lexapro. Pt noted she is also linked with a community mental health case coordinator through [facility] who is working on getting Pt linked with Psychiatry there as well. Pt currently engaged in phone meetings with her case coordinator 2x week d/t COVID-19 social distancing requirements. Pt feels well supported by her case coordinator and will continue with her post . Her next appointment/phone call with her case coordinator is scheduled for tomorrow at 10:30. She [...] unwilling to leave and come back to pick up worker Pt. SW will coordinate transportation home for Pt. Pt reports no additional needs at this time, SW will remain available if needs arise. SIGNATURE: VERN Clark PATIENT NAME: Mary Paniagua DATE: November 22, 2019 TIME: 9:53 AM PAGER/CONTACT #: [phone] [facility] PLAN OF CAREon 11-22-2019 PLAN OF CARE HNO ID: [id number] Author: Korin Simeon (Plastic Products Sales Representative) Service: ? Author Type: ? Type: Plan of Care Filed: 11/22/2019 12:55 PM Note Text: PHARMACY BEDSIDE DELIVERY SERVICE Patient Name: Mary Paniagua The marked outpatient medications were Filled at: [facility] and delivered to the patient's bedside to [...] or your Primary Care Provider. Korin Simeon (Endgame) PAGER: [phone] November 22, 2019 12:54 PM [facility] PLAN CARE HNO ID: [id number] Author: Korin Simeon (Endgame) Service: ? Author Type: ? Type: Plan of Care Filed: 11/22/2019 10:26 AM Note Text: Pharmacy Discharge Medication Service: This patient has elected to receive their discharge prescriptions through the [facility] Bedside Prescription Delivery program. The prescriptions are currently being processed. A follow-up note will be entered once the prescriptions have been filled and delivered to the patient. Please contact me with any questions or updates to the patient's discharge medications. Korin Simeon (Endgame) DCT Contact Info: [id number] [facility] CARE HNO ID: [id number] Author: Korin Simeon (Endgame) Service: ? Author Type: ? Type: Plan of Care Filed: 11/22/2019 10:26 AM Note Text: INSTRUMENT ENGINEER BEDSIDE DELIVERY SURVEY 1. Patient to use [facility] Bedside Delivery - YES Insurance Information as follows: 2. Insurance card on file - YES 3. Credit card for payment - N/A Patient has no prescriptions yet. Please page [phone] upon discharge. [facility] PROGRESSon 11-22-2019 PROGRESS HNO ID: [id number] Author: Mannie Esquivel MD Service: Gynecology Author [...] DATE: November 22, 2019 TIME: 6:03 AM [facility] ANES POSTPROC EVALon 020 ANES POSTPROC EVAL HNO ID: [id number] Author: Eligio Casillas Service: ? Author Type: [...] 97 % 11/21/2019 8:33 AM Jerzy Paniagua [[id number]] Please use the Print Group Iron Pourer activity in [place] to make print groups. Contact your technical designer for more information. Post Anesthesia Patient Status [...] November 21, 2019 TIME: 8:42 AM CSN: [id number] Normal [facility] Blood Gases,Cord,Art (For [facility] and [facility])on 11-21-2019 Base Deficit 7.4 mmol/L Normal 4.4-8.3 [facility] Comment on above: Performed By: #### C BCDIF, CMP #### [phone] HCO3 (Bld) [Moles/Vol] 21 mmol/L Normal 17-27 [facility] Comment on above: Performed By: #### C BCDIF, CMP #### [place] [phone] Oxygen (Bld) [Partial pressure] mm[Hg] High 5.5-30.5 [facility] Comment on above: Performed By: #### C BCDIF, CMP #### [place] [phone] pCO2 53 mm Hg Normal 32-66 [facility] Comment on above: Performed By: #### C BCDIF, CMP #### [place] [phone] pH (Bld) 7.22 [pH] Normal 7.18-7.38 [facility] Comment on above: Performed By: #### C STEVEN, [facility] #### [facility] [id number] LD NOTEon 11-21-2019 LD NOTE HNO ID: [id number] Author: Skyla Claudio Service: Obstetrics Author Type: Physician Type: LANDD Delivery Note Filed: 11/21/2019 4:27 AM Note Text: OBSTETRICS DELIVERY SUMMARY - VAGINAL DELIVERY Gestational Age at Delivery: 36w1d Service Date: 11/21/2019 Service Time: 4:24 AM PaniaguaJerzy [[id number]] Labor Events Rupture Date: 11/21/19 Rupture Time: [...] : 9 Five Minute : 9 Code [place] Called: Yes Type of Code [place] Team Needed: Planned Resuscitation Needed: No, see Peds Delivery Attendance Note/Progress Note 34 year old 36w1d induction of labor for preeclampsia with severe features, PUI for COVID-19 transferred from [facility]. Induction of labor with normal progression and [...] DATE: November 21, 2019 TIME: 4:24 AM [facility] NURSING PROGon 11-21-2019 NURSING PROG HNO ID: [id number] Author: Rosario (Rn) CECILE Aiken Service: Obstetrics Author Type: Registered Nurse Type: Nursing Progress Note Filed: 11/21/2019 1:09 PM Note Text: Nursing Progress Note Patient Name: Mary Paniagua [id number] Called to room by sitter; pt having 10/10 epigastric pain; anxiety elevated. Pt stated she was diagnosed with IBS, Colitis and peptic ulcer. Bentyl restarted. Resident called to see pt. Regarding pain control AND anxiety. In unit; will come see pt. This note was completed by: Rosario Aiken RN [facility] PROGRESSon 11-21-2019 PROGRESS HNO ID: [id number] Author: Bel Hernandes Service: ? Author Type: [...] DATE: November 21, 2019 TIME: 5:50 PM [facility] PROGRESS HNO ID: [id number] Author: Skyla Claudio Service: Obstetrics Author Type: [...] 24 hours post delivery. Skyla Claudio MD [facility] PROGRESS HNO ID: [id number] Author: Skyla Claudio Service: Obstetrics Author Type: Physician Type: Progress Notes Filed: 11/21/2019 4:43 AM Note Text: COVID-19 result negative. Will discontinue precautions. Routine PP care for preeclampsia. Skyla Claudio MD [facility] PROGRESS HNO ID: [id number] Author: Skyla Claudio Service: Obstetrics Author Type: Physician Type: Progress Notes Filed: 11/21/2019 1:27 AM Note Text: OBSTETRICS INTRAPARTUM PROGRESS NOTE SERVICE DATE: November 21, 2019 SERVICE TIME: 1:20 AM Subjective Patient reports feeling some pressure, no other complaints. Denies [place], SOB, CP. Abdominal pain improved with epidural. [...] 2019 TIME: 1:20 AM PAGER/CONTACT #: Normal [facility] Urinalysis with Microscopico n 11-21-2019 Bacteria LM.HPF (Urine sed) [#/Area] Rare Critically abnormal Negative [facility] Comment on above: Performed By: #### U AWMIC #### [place] [address] Bilirubin, Urine Negative Normal Negative [facility] Comment on above: Performed By: #### U AWMIC #### [place] [address] Clarity (U) Hazy Critically abnormal Clear [facility] Comment on above: Performed By: #### U AWMIC #### [place] [address] Color (U) Yellow Normal Yellow [facility] Comment on above: Performed By: #### U AWMIC #### [place] [address] Comments SEE COMMENT Normal [facility] Comment on above: Result Comment: Micr oscopic Examination Performed Performed By: #### U AWMIC #### [place] [address] Epithelial cells LM.HPF (Urine sed) [#/Area] SEE COMMENT Critically abnormal Negative [facility] Comment on above: Result Comment: Rare Squamous Epithelial Cells Performed By: #### U AWMIC #### [place] [address] Glucose Ql (U) Negative Normal [facility] Comment on above: Performed By: #### U AWMIC #### [place] [address] Hemoglobin/Blood,Ur Large Critically abnormal Negative [facility] Comment on above: Performed By: #### U AWMIC #### [place] [phone] Ketones Ql (U) 80 Critically abnormal Negative [facility] Comment on above: Performed By: #### U AWMIC #### [place] [phone] Leukest Negative Normal [facility] Comment on above: Performed By: #### U AWMIC #### [place] [phone] Mucus Ql (Urine sed) Present Normal [facility] Comment on above: Performed By: #### U AWMIC #### [place] [phone] Nitrite Ql (U) Negative Normal [facility] Comment on above: Performed By: #### U AWMIC #### [place] [phone] pH (Bld) 5.0 Normal 5.0-8.0 [facility] Comment on above: Performed By: #### U AWMIC #### [place] [phone] Protein (U) [Mass/Vol] Negative Normal Negative [facility] Comment on above: Performed By: #### U AWMIC #### [place] [phone] RBC (U) [#/Vol] Many Critically abnormal Negative [facility] Comment on above: Performed By: #### U AWMIC #### [place] [phone] Specific [place], Ur 1.014 Normal 1.005-1.030 [facility] Comment on above: Performed By: #### U AWMIC #### [place] [phone] Urobilinogen Qn (U) <2.0 Normal <2.0 [facility] Comment on above: Performed By: #### U AWMIC #### [place] [phone] WBC (Bld) [#/Vol] Rare Critically abnormal Negative [facility] Comment on above: Performed By: #### U AWMIC #### [place] [phone] Urine Cultureon 11-21-2019 Bacteria identified Cx Nom (U) Sp. Request/Comment: - Specimen received in preservative Culture Result - No growth (<100 CFU/ml) Normal [facility] Comment on above: Performed By: #### P RATIO #### [facility] [address] [place] [address] ANES PRE-OPon 11-20-2019 ANES PRE-OP HNO ID: [id number] Author: Jose West) MAXIMO Cline.VEGETABLE WASHER Service: ? Author Type: Nurse Switchboard Manager Type: Anesthesia Preprocedure Evaluation Filed: 11/20/2019 8:09 PM Note Text: OB ANESTHESIA PRE-PROCEDURE ASSESSMENT PATIENT NAME: Mary Paniagua : 1985 Pt is a 34yo with EGA of 36w0d who presents in labor from [facility]. Had Previous Epidural today from [facility] and removed prior to transport. Pt stated no issues with Placement and stated that the epidural worked for her prior to removal. [facility] ANES SENIOR ACCOUNTS PAYABLE CLERK: Previous OB anesthetic: Epidural No OB anesthesia [...] 2019 TIME: 8:02 PM : 1985 Normal [facility] CBC With Platelet and Differ entialon 11-20-2019 Basophils (Bld) [#/Vol] 0.1 10*3/uL Normal 0.0-0.2 [facility] Comment on above: Performed By: #### L DH #### [facility] [address] [place] [address] Basophils/100 WBC (Bld) 0.7 % Normal M [facility] Comment on above: Performed By: #### L DH #### [facility] [address] [place] [address] Eosinophils (Bld) [#/Vol] 0.0 10*3/uL Normal 0.0-0.7 [facility] Comment on above: Performed By: #### L DH #### [facility] [address] [place] [address] Eosinophils/100 WBC (Bld) 0.0 % Normal [facility] Comment on above: Performed By: #### L DH #### [facility] [address] [place] [address] Erythrocyte distribution width (RBC) [Ratio] 13.3 % Normal 11.5-14.5 [facility] Comment on above: Performed By: #### L DH #### [facility] [address] [place] [address] Hematocrit (Bld) [Volume fraction] 33.7 % Low 37.0-47.0 [facility] Comment on above: Performed By: #### L DH #### [facility] [address] [place] [address] Hemoglobin (Bld) [Mass/Vol] 11.3 g/dL Low 12.0-16.0 [facility] Comment on above: Performed By: #### L DH #### [facility] [address] [place] [address] Lymphocytes (Bld) [#/Vol] 1.1 10*3/uL Normal 1.0-4.8 [facility] Comment on above: Performed By: #### L DH #### [facility] [address] [place] [address] Lymphocytes/100 WBC (Bld) 7.6 % Normal [facility] Comment on above: Performed By: #### L DH #### [facility] [address] [place] [address] MCH (RBC) [Entitic mass] 29.9 pg Normal 27.0-31.3 [facility] Comment on above: Performed By: #### L DH #### [facility] [address] [place] [address] MCHC (RBC) [Mass/Vol] 33.7 % Normal 33.0-37.0 [facility] Comment on above: Performed By: #### L DH #### [facility] [address] [place] [address] MCV (RBC) [Entitic vol] 88.9 fL Normal 82.0-100.0 [facility] Comment on above: Performed By: #### L DH #### [facility] [address] [place] [address] Monocytes (Bld) [#/Vol] 0.4 10*3/uL Normal 0.2-0.8 [facility] Comment on above: Performed By: #### L DH #### [facility] [address] [place] [address] Monocytes/100 WBC (Bld) 2.6 % Normal [facility] Comment on above: Performed By: #### L DH #### [facility] [address] [place] [address] Neutrophils (Bld) [#/Vol] 12.5 10*3/uL Critically high 1.4-6.5 [facility] Comment on above: Performed By: #### L DH #### [facility] [address] [place] [address] Neutrophils/100 WBC (Bld) 89.1 % Normal [facility] Comment on above: Performed By: #### L DH #### [facility] [address] [place] [address] Platelets (Bld) [#/Vol] 344 10*3/uL Normal 130-400 [facility] Comment on above: Performed By: #### L DH #### [facility] [address] [place] [address] RBC (Bld) [#/Vol] 3.79 10*6/uL Low 4.20-5.40 [facility] Comment on above: Performed By: #### L DH #### [facility] [address] [place] [address] WBC (Bld) [#/Vol] 14.0 10*3/uL Critically high 4.8-10.8 [facility] Comment on above: Performed By: #### L DH #### [facility] [address] [facility] [phone] CBC and Differentialon 11-19 Abs Baso <0.03 Normal <0.11 [facility] Comment on above: Performed By: #### C BCDIF, CMP #### [place] [phone] Abs [place] 1.18 k/uL High <0.87 [facility] Comment on above: Performed By: #### C BCDIF, CMP #### [place] [phone] Abs Neut 18.44 k/uL High 1.45-7.50 [facility] Comment on above: Performed By: #### C BCDIF, CMP #### [place] [phone] Basophils/100 WBC (Bld) 0.0 % Normal [facility] Comment on above: Performed By: #### C BCDIF, CMP #### [place] [phone] DTYPE Auto Diff Normal [facility] Comment on above: Performed By: #### C BCDIF, CMP #### [place] [phone] Eosinophils (Bld) [#/Vol] 10*3/uL Normal <0.46 [facility] Comment on above: Performed By: #### C BCDIF, CMP #### [place] [phone] Eosinophils/100 WBC (Bld) 0.0 % Normal [facility] Comment on above: Performed By: #### C BCDIF, CMP #### [phone] Erythrocyte distribution width (RBC) [Ratio] 13.7 % Normal 11.5-15.0 [facility] Comment on above: Performed By: #### C BCDIF, CMP #### [place] [phone] Hematocrit (Bld) [Volume fraction] 37.4 % Normal 36.0-46.0 [facility] Comment on above: Performed By: #### C BCDIF, CMP #### [place] [phone] Hemoglobin (Bld) [Mass/Vol] 12.5 g/dL Normal 11.5-15.5 [facility] Comment on above: Performed By: #### C BCDIF, CMP #### [place] [phone] Lymphocytes (Bld) [#/Vol] 1.37 10*3/uL Normal 1.00-4.00 [facility] Comment on above: Performed By: #### C BCDIF, CMP #### [place] [phone] Lymphocytes/100 WBC (Bld) 6.5 % Normal [facility] Comment on above: Performed By: #### C BCDIF, CMP #### [place] [phone] MCH (RBC) [Entitic mass] 30.0 pG Normal 26.0-34.0 [facility] Comment on above: Performed By: #### C BCDIF, CMP #### [place] [phone] MCHC (RBC) [Mass/Vol] 33.4 g/dL Normal 30.5-36.0 [facility] Comment on above: Performed By: #### C BCDIF, CMP #### [place] [phone] MCV (RBC) [Entitic vol] 89.9 fL Normal 80.0-100.0 [facility] Comment on above: Performed By: #### C BCDIF, CMP #### [place] [address] Monocytes/100 WBC (Bld) 5.6 % Normal [facility] Comment on above: Performed By: #### C BCDIF, CMP #### [address] [address] Neutrophils/100 WBC (Bld) 87.9 % Normal [facility] Comment on above: Performed By: #### C BCDIF, CMP #### [place] [address] Platelet mean volume (Bld) [Entitic vol] 10.2 fL Normal 9.0-12.7 [facility] Comment on above: Performed By: #### C BCDIF, CMP #### [place] [address] Platelets (Bld) [#/Vol] 437 10*3/uL High 150-400 [facility] Comment on above: Performed By: #### C BCDIF, CMP #### [place] [phone] RBC (Bld) [#/Vol] 4.16 10*6/uL Normal 3.90-5.20 [facility] Comment on above: Performed By: #### C BCDIF, CMP #### [address] [address] WBC (Bld) [#/Vol] 21.00 10*3/uL High 3.70-11.00 [facility] Comment on above: Performed By: #### C BCDIF, CMP #### [place] [phone] Comp Metabolic Panelon 11-19 Albumin [Mass/Vol] 3.6 g/dL Normal 3.5-5.0 [facility] Comment on above: Performed By: #### C BCDIF, CMP #### [place] [phone] ALP [Catalytic activity/Vol] 134 U/L High 34-123 [facility] Comment on above: Performed By: #### C BCDIF, CMP #### [place] [phone] ALT [Catalytic activity/Vol] 20 U/L Normal 0-45 [facility] Comment on above: Performed By: #### C BCDIF, CMP #### [place] [phone] Anion gap [Moles/Vol] 22 mmol/L High 9-18 [facility] Comment on above: Performed By: #### C BCDIF, CMP #### [place] [phone] AST [Catalytic activity/Vol] 19 U/L Normal 7-40 [facility] Comment on above: Performed By: #### C BCDIF, CMP #### [place] [phone] Bilirubin [Mass/Vol] 0.4 mg/dL Normal 0.2-1.3 [facility] Comment on above: Performed By: #### C BCDIF, CMP #### [place] [phone] Calcium [Mass/Vol] 8.5 mg/dL Normal 8.5-10.5 [facility] Comment on above: Performed By: #### C BCDIF, CMP #### [place] [phone] Chloride [Moles/Vol] 98 mmol/L Normal 98-110 [facility] Comment on above: Performed By: #### C BCDIF, CMP #### [place] [phone] CO2 [Moles/Vol] 12 mmol/L Low 23-32 [facility] Comment on above: Performed By: #### C BCDIF, CMP #### [place] [phone] Creatinine [Mass/Vol] 0.51 mg/dL Low 0.70-1.40 [facility] Comment on above: Performed By: #### C BCDIF, CMP #### [place] [phone] eGFR- Amer. >60 Normal >60 [facility] Comment on above: Performed By: #### C BCDIF, CMP #### [place] [phone] GFR/1.73 sq M predicted among non-blacks MDRD (S/P/Bld) [Vol rate/Area] mL/min/{1.73_m2} Normal >60 [facility] Comment on above: Performed By: #### C BCDIF, CMP #### [place] [phone] Glucose [Mass/Vol] 145 mg/dL High 65-100 [facility] Comment on above: Performed By: #### C BCDIF, CMP #### [place] [phone] Potassium [Moles/Vol] 3.2 mmol/L Low 3.5-5.0 [facility] Comment on above: Performed By: #### C BCDIF, CMP #### [phone] Protein [Mass/Vol] 6.3 g/dL Normal 6.0-8.4 [facility] Comment on above: Performed By: #### C BCDIF, CMP #### [place] [phone] Sodium [Moles/Vol] 132 mmol/L Normal 132-148 [facility] Comment on above: Performed By: #### C BCDIF, CMP #### [place] [phone] Urea nitrogen [Mass/Vol] 4 mg/dL Low 8-25 [facility] Comment on above: Performed By: #### C BCDIF, CMP #### [place] [phone] Comprehensive Metabolic Pane samina 11-20-2019 Albumin [Mass/Vol] 2.9 g/dL Low 3.5-4.6 [facility] Comment on above: Performed By: #### L IPAS #### [facility] [address] [place] [address] ALP [Catalytic activity/Vol] 112 U/L Normal 40-130 [facility] Comment on above: Performed By: #### L IPAS #### [facility] [address] [place] [address] ALT [Catalytic activity/Vol] 13 U/L Normal 0-33 [facility] Comment on above: Performed By: #### L IPAS #### [facility] [address] [place] [address] Anion gap [Moles/Vol] 15 mmol/L Normal 9-15 [facility] Comment on above: Performed By: #### L IPAS #### [facility] [address] [place] [address] AST [Catalytic activity/Vol] 13 U/L Normal 0-35 [facility] Comment on above: Performed By: #### L IPAS #### [facility] [address] [place] [address] Bilirubin [Mass/Vol] 0.3 mg/dL Normal 0.2-0.7 [facility] Comment on above: Performed By: #### L IPAS #### [facility] [address] [place] [address] Calcium [Mass/Vol] 7.8 mg/dL Low 8.5-9.9 [facility] Comment on above: Performed By: #### L IPAS #### [facility] [address] [place] [address] Chloride [Moles/Vol] 102 mmol/L Normal 95-107 [facility] Comment on above: Performed By: #### L IPAS #### [facility] [address] [place] [address] CO2 [Moles/Vol] 16 mmol/L Low 20-31 [facility] Comment on above: Performed By: #### L IPAS #### [facility] [address] [place] [address] Creatinine [Mass/Vol] 0.41 mg/dL Low 0.50-0.90 [facility] Comment on above: Performed By: #### L IPAS #### [facility] [address] [place] [address] GFR/1.73 sq M predicted among blacks MDRD (S/P/Bld) [Vol rate/Area] mL/min/{1.73_m2} Normal >60 [facility] Comment on above: Result Comment: >60 mL/min/1.73m2 EGFR, calc. for ages 18 and older using the MDRD formula (not corrected for weight), is valid for stable renal function. Performed By: #### L IPAS #### [facility] [address] [place] [address] GFR/1.73 sq M.predicted MDRD (S/P/Bld) [Vol rate/Area] mL/min/{1.73_m2} Normal >60 [facility] Comment on above: Result Comment: >60 mL/min/1.73m2 EGFR, calc. for ages 18 and older using the MDRD formula (not corrected for weight), is valid for stable renal function. Performed By: #### L IPAS #### [facility] [address] [place] [address] Globulin (S) [Mass/Vol] 2.8 g/dL Normal 2.3-3.5 [facility] Comment on above: Performed By: #### L IPAS #### [facility] [address] [place] [address] Glucose [Mass/Vol] 123 mg/dL Critically high 70-99 M [facility] Comment on above: Performed By: #### L IPAS #### [facility] [address] [place] [address] Potassium [Moles/Vol] 3.4 mmol/L Normal 3.4-4.9 [facility] Comment on above: Performed By: #### L IPAS #### [facility] [address] [place] [address] Protein [Mass/Vol] 5.7 g/dL Low 6.3-8.0 [facility] Comment on above: Performed By: #### L IPAS #### [facility] [address] [place] [address] Sodium [Moles/Vol] 133 mmol/L Low 135-144 [facility] Comment on above: Performed By: #### L IPAS #### [facility] [address] [place] [address] Urea nitrogen [Mass/Vol] 5 mg/dL Low 6-20 [facility] Comment on above: Performed By: #### L IPAS #### [facility] [address] [place] [address] Coronavirus 2019on 0 COVID 19 Result [employer] Negative Normal Negative for COVID19 (SARS CoV2) by PCR. [facility] Comment on above: Result Comment: This test was developed and its performance characteristics determined by [facility] [place]. This test has been authorized by FDA [...] Performed By: #### C BCEMIGDIOF, CMP #### [place] [id number] [place] [address] COVID 19 Source [employer] Nasopharyngeal Swab Normal [facility] Comment on above: Performed By: #### C BCDIF, CMP #### [place] [address] HISTORY PHYSICALon 0 HISTORY PHYSICAL HNO ID: [id number] Author: Skyla C [employer]: Obstetrics Author Type: Physician Type: HANDP [...] Patient is here sent as transfer from [facility] where she presented with abdominal pain, N/V/D. RUQ ultrasound was unremarkable. She was suspected to be laboring and was given epidural with improvement of pain. She was given BMZ at [facility] on 11/18 PM. She had watery diarrhea which was sent for C.diff. She has a history of GI complaints and had workup including EGD and colonoscopy in 2018. She was admitted for similar GI complaints in August 2019 at [facility]. She also was noted to have [...] counseling. She received Ativan x 2 at [facility]. GBS was collected at [facility]. She endorses suicidal ideations. She has [...] Assessment/Plan 34 year old EGA:36w0d. Transfer from [facility]. Preeclampsia with severe features based on BP. No STRICK[place], no hyperreflexia. Induction of labor. Will hold magnesium due to concern for possible respiratory compromise. Consider in active labor or PP. Respiratory complaints with GI complaints, ill appearing. Influenza negative. COVID-19 testing in process. Contact and droplet precautions plus eyewear. GDMA1. Received one dose BMZ at [facility]-- will likely reflect in elevated BS [...] Anti-emetics, IVF hydration, analgesia. C.diff pending from [facility]. Will evaluate further after delivery if continued symptoms. IOL-- Dating c/w 9 week ultrasound. FHR is category 1 (no variable appreciated). No recent US for growth, clinically 7# but limited d/t patient body habitus. GBS unknown-- specimen collected at [facility]. PCN for GBS prophylaxis. Patient desires [...] 20, 2019 TIME: 4:44 PM PAGER/CONTACT #: [facility] POCT Glucoseon 11-20-2019 Glucose [Mass/Vol] 128 mg/dL Critically high 60-115 M [facility] Comment on above: Performed By: #### L DH #### [facility] [address] [place] [address] POC Performed on ACCU-CHEK [facility] Comment on above: Performed By: #### L DH #### [facility] [address] [place] [address] Glucose [Mass/Vol] 122 mg/dL Critically high 60-115 M [facility] Comment on above: Performed By: #### P GLU #### [facility] [address] [place] [address] POC Performed on ACCU-CHEK [facility] Comment on above: Performed By: #### P GLU #### [facility] [address] [place] [address] Glucose [Mass/Vol] 126 mg/dL Critically high 60-115 M [facility] Comment on above: Performed By: #### F IBR #### [facility] [address] [facility] [address] POC Performed on ACCU-CHEK Normal [facility] Comment on above: Performed By: #### F IBR #### [facility] [address] [facility] [address] Protein/Creatinine Ratioon 0 11-20-2019 Creatinine,Urine,Ran 53.2 mg/dL Normal 20-300 [facility] Comment on above: Performed By: #### P RATIO #### [place] [phone] Protein (U) [Mass/Vol] 47 mg/dL High 0-20 [facility] Comment on above: Performed By: #### P RATIO #### [place] [phone] Protein/Creatinine Ratio 0.9 High <0.2 [facility] Comment on above: Performed By: #### P RATIO #### [place] [phone] Rapid PCR FLU/RSVon 11-20-19 20 Influenza A PCR Negative [facility] Comment on above: Performed By: #### F LRSV #### [place] [address] Influenza B PCR Negative [facility] Comment on above: Performed By: #### F LRSV #### [address] RSV PCR Negative [facility] Comment on above: Performed By: #### F LRSV #### [address] Specimen source Nom (Unsp spec) Nasopharyngeal Swab [facility] Comment on above: Performed By: #### F LRSV #### [place] [phone] Type and Scr,Prenatlon 11-19 ABO/RH(D) Positive Normal [facility] Comment on above: Performed By: #### C BCDIF, CMP #### [facility] [address] [place] [address] Urinalysis, reflex to micros copicon 11-20-2019 Bilirubin Ql (U) Negative Normal Negative [facility] Comment on above: Performed By: #### L IPAS #### [facility] [address] [place] [address] Clarity (U) Clear Normal Clear [facility] Comment on above: Performed By: #### L IPAS #### [facility] [address] [place] [address] Color (U) Yellow Normal Straw/Hooker [facility] Comment on above: Performed By: #### L IPAS #### [facility] [address] [place] [address] Glucose Ql (U) Negative Normal Negative [facility] Comment on above: Performed By: #### L IPAS #### [facility] [address] [place] [address] Hemoglobin Ql (U) Negative Normal Negative [facility] Comment on above: Performed By: #### L IPAS #### [facility] [address] [place] [address] Ketones Ql (U) >=[address] [facility] Comment on above: Performed By: #### L IPAS #### [facility] [address] [place] [address] Leukocyte esterase Test strip Ql (U) Negative Normal Negative [facility] Comment on above: Performed By: #### L IPAS #### [facility] [address] [place] [address] Nitrite Ql (U) Negative Normal Negative [facility] Comment on above: Performed By: #### L IPAS #### [facility] [address] [place] [address] pH (U) 6.0 [pH] Normal 5.0-9.0 [facility] Comment on above: Performed By: #### L IPAS #### [facility] [address] [place] [address] Protein Ql (U) TRACE Abnormal Negative [facility] Comment on above: Performed By: #### L IPAS #### [facility] [address] [place] [address] Specific gravity (U) [Rel density] 1.009 Normal 1.005-1.03 [facility] Comment on above: Performed By: #### L IPAS #### [facility] [address] [place] [address] Urobilinogen Qn (U) 0.2 {Ace'U}/dL Normal < 2.0 [facility] Comment on above: Performed By: #### L IPAS #### [facility] [address] [place] [address] Amylaseon 11-19-2019 Amylase [Catalytic activity/Vol] 57 U/L Normal 22-93 [facility] Comment on above: Performed By: #### F IBR #### [facility] [address] [place] [address] CBC With Platelet and Differ entialon 11-19-2019 Slide Review see below Normal [facility] Comment on above: Result Comment: Slid e review agrees with reported results Performed By: #### C BCWD #### [facility] [address] [place] [address] Basophils (Bld) [#/Vol] 0.2 10*3/uL Normal 0.0-0.2 [facility] Comment on above: Performed By: #### C BCWD #### [facility] [address] [place] [address] Basophils/100 WBC (Bld) 1.0 % Normal [facility] Comment on above: Performed By: #### C BCWD #### [facility] [address] [place] [address] Eosinophils (Bld) [#/Vol] 0.0 10*3/uL Normal 0.0-0.7 [facility] Comment on above: Performed By: #### C BCWD #### [facility] [address] [place] [address] Eosinophils/100 WBC (Bld) 0.1 % Normal [facility] Comment on above: Performed By: #### C BCWD #### [facility] [address] [place] [address] Erythrocyte distribution width (RBC) [Ratio] 13.2 % Normal 11.5-14.5 [facility] Comment on above: Performed By: #### C BCWD #### [facility] [address] [place] [address] Hematocrit (Bld) [Volume fraction] 37.6 % Normal 37.0-47.0 [facility] Comment on above: Performed By: #### C BCWD #### [facility] [address] [place] [address] Hemoglobin (Bld) [Mass/Vol] 13.0 g/dL Normal 12.0-16.0 [facility] Comment on above: Performed By: #### C BCWD #### [facility] [address] [place] [address] Lymphocytes (Bld) [#/Vol] 1.1 10*3/uL Normal 1.0-4.8 [facility] Comment on above: Performed By: #### C BCWD #### [facility] [address] [place] [address] Lymphocytes/100 WBC (Bld) 6.3 % Normal [facility] Comment on above: Performed By: #### C BCWD #### [facility] [address] [place] [address] MCH (RBC) [Entitic mass] 30.8 pg Normal 27.0-31.3 [facility] Comment on above: Performed By: #### C BCWD #### [facility] [address] [place] [address] MCHC (RBC) [Mass/Vol] 34.5 % Normal 33.0-37.0 [facility] Comment on above: Performed By: #### C BCWD #### [facility] [address] [place] [address] MCV (RBC) [Entitic vol] 89.1 fL Normal 82.0-100.0 [facility] Comment on above: Performed By: #### C BCWD #### [facility] [address] [place] [address] Monocytes (Bld) [#/Vol] 0.5 10*3/uL Normal 0.2-0.8 [facility] Comment on above: Performed By: #### C BCWD #### [facility] [address] [place] [address] Monocytes/100 WBC (Bld) 2.7 % Normal [facility] Comment on above: Performed By: #### C BCWD #### [facility] [address] [place] [address] Neutrophils (Bld) [#/Vol] 15.5 10*3/uL Critically high 1.4-6.5 [facility] Comment on above: Performed By: #### C BCWD #### [facility] [address] [place] [address] Neutrophils/100 WBC (Bld) 89.9 % Normal [facility] Comment on above: Performed By: #### C BCWD #### [facility] [address] [place] [address] Platelets (Bld) [#/Vol] 272 10*3/uL Normal 130-400 [facility] Comment on above: Performed By: #### C BCWD #### [facility] [address] [place] [address] RBC (Bld) [#/Vol] 4.22 10*6/uL Normal 4.20-5.40 [facility] Comment on above: Performed By: #### C BCWD #### [facility] [address] [place] [address] WBC (Bld) [#/Vol] 17.2 10*3/uL Critically high 4.8-10.8 [facility] Comment on above: Performed By: #### C BCWD #### [facility] [address] [place] [address] Comprehensive Metabolic Pane l reflex Mgon 11-19-2019 Albumin [Mass/Vol] 3.7 g/dL Normal 3.5-4.6 [facility] Comment on above: Performed By: #### L IPAS #### [facility] [address] [place] [address] ALP [Catalytic activity/Vol] 133 U/L Critically high 40-130 [facility] Comment on above: Result Comment: Spec imen hemolysis has exceeded the interference as defined by Mik. Value may be falsely decreased. Suggest recollection if clinically indicated. Performed By: #### L IPAS #### [facility] [address] [place] [address] ALT [Catalytic activity/Vol] 18 U/L Normal 0-33 [facility] Comment on above: Result Comment: Spec imen hemolysis has exceeded the interference as defined by Mik. Result may be affected. Suggest recollection if clinically indicated. Performed By: #### L IPAS #### [facility] [address] [place] [address] Anion gap [Moles/Vol] 19 mmol/L Critically high 9-15 [facility] Comment on above: Performed By: #### L IPAS #### [facility] [address] [place] [address] AST [Catalytic activity/Vol] 31 U/L Normal 0-35 [facility] Comment on above: Result Comment: Spec imen hemolysis has exceeded the interference as defined by Mik. Value may be falsely increased. Suggest recollection if clinically indicated. Performed By: #### L IPAS #### [facility] [address] [place] [address] Bilirubin [Mass/Vol] 0.3 mg/dL Normal 0.2-0.7 [facility] Comment on above: Performed By: #### L IPAS #### [facility] [address] [place] [address] Calcium [Mass/Vol] 9.0 mg/dL Normal 8.5-9.9 [facility] Comment on above: Performed By: #### L IPAS #### [facility] [address] [place] [address] Chloride [Moles/Vol] 96 mmol/L Normal 95-107 [facility] Comment on above: Performed By: #### L IPAS #### [facility] [address] [place] [address] CO2 [Moles/Vol] 18 mmol/L Low 20-31 [facility] Comment on above: Performed By: #### L IPAS #### [facility] [address] [place] [address] Creatinine [Mass/Vol] 0.39 mg/dL Low 0.50-0.90 [facility] Comment on above: Performed By: #### L IPAS #### [facility] [address] [place] [address] GFR/1.73 sq M predicted among blacks MDRD (S/P/Bld) [Vol rate/Area] mL/min/{1.73_m2} Normal >60 [facility] Comment on above: Result Comment: >60 mL/min/1.73m2 EGFR, calc. for ages 18 and older using the MDRD formula (not corrected for weight), is valid for stable renal function. Performed By: #### L IPAS #### [facility] [address] [place] [address] GFR/1.73 sq M.predicted MDRD (S/P/Bld) [Vol rate/Area] mL/min/{1.73_m2} Normal >60 [facility] Comment on above: Result Comment: >60 mL/min/1.73m2 EGFR, calc. for ages 18 and older using the MDRD formula (not corrected for weight), is valid for stable renal function. Performed By: #### L IPAS #### [facility] [address] [place] [address] Globulin (S) [Mass/Vol] 3.2 g/dL Normal 2.3-3.5 [facility] Comment on above: Performed By: #### L IPAS #### [facility] [address] [place] [address] Glucose [Mass/Vol] 196 mg/dL Critically high 70-99 [facility] Comment on above: Performed By: #### L IPAS #### [facility] [address] [place] [address] Potassium reflex Mg 4.1 mEq/L Normal 3.4-4.9 [facility] Comment on above: Performed By: #### L IPAS #### [facility] [address] [place] [address] Protein [Mass/Vol] 6.9 g/dL Normal 6.3-8.0 [facility] Comment on above: Performed By: #### L IPAS #### [facility] [address] [place] [address] Sodium [Moles/Vol] 133 mmol/L Low 135-144 [facility] Comment on above: Performed By: #### L IPAS #### [facility] [address] [place] [address] Urea nitrogen [Mass/Vol] 6 mg/dL Normal 6-20 [facility] Comment on above: Performed By: #### L IPAS #### [facility] [address] [place] [address] D-Dimer Quanton 11-19-2019 D-Dimer Quant 0.84 mg/L FEU Critically high 0.00-0.50 [facility] Comment on above: Order Comment: CALL Maguire [facility] tel. [phone],dimer results called to and read back by Christine neal, 11/19/2019 19:59,by MAGGIE Performed By: #### F IBR #### [facility] [address] [place] [address] Fibrinogenon 11-19-2019 Fibrinogen 615.0 mg/dL Critically high 235.0-507. [facility] Comment on above: Performed By: #### F IBR #### [facility] [address] [place] [address] Lactate Dehydrogenaseon 10-24 LDH [Catalytic activity/Vol] 429 U/L Critically high 135-214 [facility] Comment on above: Result Comment: Spec imen hemolysis has exceeded the interference as defined by Mik. Value may be falsely increased. Suggest recollection if clinically indicated. Performed By: #### L DH #### [facility] [address] [facility] [place] [address] Lipaseon 11-19-2019 Lipase [Catalytic activity/Vol] 35 U/L Normal 12-95 [facility] Comment on above: Performed By: #### L IPAS #### [facility] [address] [place] [address] Prothrombin Timeon 0 INR Coag (PPP) [Relative time] 0.9 {INR} Normal [facility] Comment on above: Performed By: #### F IBR #### [facility] [address] [facility] [place] [address] PT Coag (PPP) [Time] 12.1 s Low 12.3-14.9 [facility] Comment on above: Performed By: #### F IBR #### [facility] [address] [place] [address] Type and Screen Capture 3 sc rn cellon 11-19-2019 Type and Screen Capture 3 scrn cell PATIENT: JAY Malone LOC: [facility],[id number],[id number] BILL# : [id number] : 1985 SEX: F ORDERED BY: KRISTIAN BIRD ORDERED : 11/19/2019 18:24 COLLECTED: 11/19/2019 18:30 ORDER : [id number] RECEIVED : 11/19/2019 18:42 TEST NAME RESULT UNITS RANGES ABN FL ST ABORH Capture A POS F Antibody 3 Cell Scrn Captu NEG F @11/19/19 20:52 by MAGGIE: @11/20/19 09:22 by GILA: Repeated absc with a different lot of RS-3 strips- confirmed absc negative. LMB Normal [facility] Comment on above: Performed By: #### L IPAS #### [facility] [address] [place] [address] UR Drugs of Abuse Panelon Drug Screen Comment see below Normal [facility] Comment on above: Result Comment: This method is a screening test to detect only these drug classes as part of a medical workup. Confirmatory testing by another method should be ordered if clinically indicated. Performed By: #### F IBR #### [facility] [address] [place] [address] UR Amphetamines Screen Negative Normal Negative < [facility] Comment on above: Performed By: #### F IBR #### [facility] [address] [place] [address] UR Barbiturates Screen Negative Normal Negative < Me [facility] Comment on above: Performed By: #### F IBR #### [facility] [address] [place] [address] UR Benzo Screen Negative Normal Negative < [facility] Comment on above: Performed By: #### F IBR #### [facility] [address] [place] [address] UR Cannabinoids Screen Negative Normal Negative < [facility] Comment on above: Performed By: #### F IBR #### [facility] [address] [place] [address] UR Cocaine Screen Negative Normal Negative < [facility] Comment on above: Performed By: #### F IBR #### [facility] [address] [place] [address] UR Methadone Screen Negative Normal Negative < [facility] Comment on above: Result Comment: Effe ctive: 05/03/19 New Test for Qualitative Drug Screen. Performed By: #### F IBR #### [facility] [address] [place] [address] UR Opiates Screen Negative Normal Negative < [facility] Comment on above: Performed By: #### F IBR #### [facility] [address] [place] [address] UR Oxycodone Screen Negative Normal Negative < [facility] Comment on above: Result Comment: Effe ctive: 05/03/19 New Test for Qualitative Drug Screen. Performed By: #### F IBR #### [facility] [address] [place] [address] UR PCP Screen Negative Normal Negative < [facility] Comment on above: Performed By: #### F IBR #### [facility] [address] [place] [address] UR Propoxyphene Screen Negative Normal Negative < [facility] Comment on above: Result Comment: Effe ctive: 05/03/19 New Test for Qualitative Drug Screen. Performed By: #### F IBR #### [facility] [address] [place] [address] US ABDOMEN LIMITEDon 020 US ABDOMEN LIMITED [...] Luis Oviedo MD 11/19/[address] [facility] US BIOPHYS PROFILE W N ON STRESSon [...] WITH NON-STRESS TEST IS RECOMMENDED. Interpreted by: Luis Oviedo MD Signed by: Luis Oviedo MD 11/19/[address] [facility] Urinalysis, reflex to micros copicon 11-19-2019 Bilirubin Ql (U) Negative Normal Negative [facility] Comment on above: Performed By: #### F IBR #### [facility] [address] [place] [address] Clarity (U) Clear Normal Clear [facility] Comment on above: Performed By: #### F IBR #### [facility] [address] [place] [address] Color (U) Yellow Normal Straw/Hooker [facility] Comment on above: Performed By: #### F IBR #### [facility] [address] [place] [address] Glucose Ql (U) >=[address] [facility] Comment on above: Performed By: #### F IBR #### [facility] [address] [place] [address] Hemoglobin Ql (U) TRACE Abnormal Negative [facility] Comment on above: Performed By: #### F IBR #### [facility] [address] [place] [address] Ketones Ql (U) >=[address] [facility] Comment on above: Performed By: #### F IBR #### [facility] [address] [place] [address] Leukocyte esterase Test strip Ql (U) Negative Normal Negative [facility] Comment on above: Performed By: #### F IBR #### [facility] [address] [place] [address] Nitrite Ql (U) Negative Normal Negative [facility] Comment on above: Performed By: #### F IBR #### [facility] [address] [place] [address] pH (U) 5.0 [pH] Normal 5.0-9.0 [facility] Comment on above: Performed By: #### F IBR #### [facility] [address] [place] [address] Protein Ql (U) 30 mg/dL Abnormal Negative [facility] Comment on above: Performed By: #### F IBR #### [facility] [address] [place] [address] Specific gravity (U) [Rel density] 1.023 Normal 1.005-1.03 [facility] Comment on above: Performed By: #### F IBR #### [facility] [address] [place] [address] Urobilinogen Qn (U) 0.2 {Ace'U}/dL Normal < 2.0 [facility] Comment on above: Performed By: #### F IBR #### [facility] [address] [place] [address] Urine Microscopicon 11-19-19 20 Bacteria LM.HPF (Urine sed) [#/Area] Negative Normal Negative [facility] Comment on above: Performed By: #### U MAKENNA #### [facility] [address] [place] [address] RBC (U) [#/Vol] 6-10 Abnormal 0-5 [facility] Comment on above: Performed By: #### U MAKENNA #### [facility] [address] [place] [address] Urine Epithelial Cells Auto 6-10 Normal 0-5 [facility] Comment on above: Performed By: #### U MAKENNA #### [facility] [address] [place] [address] Urine Hyaline Casts Auto 1-3 Normal 0-5 [facility] Comment on above: Performed By: #### U MAKENNA #### [facility] [address] [place] [address] Urine WBC Auto 0-2 Normal 0-5 [facility] Comment on above: Performed By: #### U MAKENNA #### [facility] [address] [place] [address] Amylaseon 08-31-2019 Amylase [Catalytic activity/Vol] 64 U/L Normal 22-93 [facility] Comment on above: Performed By: #### F IBR #### [facility] [address] [place] [address] CBC With Platelet and Differ entialon 08-31-2019 Platelet Slide Review Normal Normal [facility] Comment on above: Performed By: #### F IBR #### [facility] [address] [place] [address] Basophils (Bld) [#/Vol] 0.0 10*3/uL Normal 0.0-0.2 [facility] Comment on above: Performed By: #### F IBR #### [facility] [address] [place] [address] Basophils/100 WBC (Bld) 0.3 % Normal [facility] Comment on above: Performed By: #### F IBR #### [facility] [address] [place] [address] Eosinophils (Bld) [#/Vol] 0.0 10*3/uL Normal 0.0-0.7 [facility] Comment on above: Performed By: #### F IBR #### [facility] [address] [place] [address] Eosinophils/100 WBC (Bld) 0.0 % Normal [facility] Comment on above: Performed By: #### F IBR #### [facility] [address] [place] [address] Erythrocyte distribution width (RBC) [Ratio] 13.2 % Normal 11.5-14.5 [facility] Comment on above: Performed By: #### F IBR #### [facility] [address] [place] [address] Hematocrit (Bld) [Volume fraction] 39.2 % Normal 37.0-47.0 [facility] Comment on above: Performed By: #### F IBR #### [facility] [address] [place] [address] Hemoglobin (Bld) [Mass/Vol] 13.5 g/dL Normal 12.0-16.0 [facility] Comment on above: Performed By: #### F IBR #### [facility] [address] [place] [address] Lymphocytes (Bld) [#/Vol] 1.3 10*3/uL Normal 1.0-4.8 [facility] Comment on above: Performed By: #### F IBR #### [facility] [address] [place] [address] Lymphocytes/100 WBC (Bld) 7.1 % Normal [facility] Comment on above: Performed By: #### F IBR #### [facility] [address] [place] [address] MCH (RBC) [Entitic mass] 31.5 pg Critically high 27.0-31.3 [facility] Comment on above: Performed By: #### F IBR #### [facility] [address] [place] [address] MCHC (RBC) [Mass/Vol] 34.5 % Normal 33.0-37.0 [facility] Comment on above: Performed By: #### F IBR #### [facility] [address] [place] [address] MCV (RBC) [Entitic vol] 91.3 fL Normal 82.0-100.0 [facility] Comment on above: Performed By: #### F IBR #### [facility] [address] [place] [address] Monocytes (Bld) [#/Vol] 0.6 10*3/uL Normal 0.2-0.8 [facility] Comment on above: Performed By: #### F IBR #### [facility] [address] [place] [address] Monocytes/100 WBC (Bld) 3.1 % Normal [facility] Comment on above: Performed By: #### F IBR #### [facility] [address] [place] [address] Neutrophils (Bld) [#/Vol] 16.2 10*3/uL Critically high 1.4-6.5 [facility] Comment on above: Performed By: #### F IBR #### [facility] [address] [place] [address] Neutrophils/100 WBC (Bld) 89.5 % Normal [facility] Comment on above: Performed By: #### F IBR #### [facility] [address] [place] [address] Platelets (Bld) [#/Vol] 305 10*3/uL Normal 130-400 [facility] Comment on above: Performed By: #### F IBR #### [facility] [address] [place] [address] RBC (Bld) [#/Vol] 4.29 10*6/uL Normal 4.20-5.40 [facility] Comment on above: Performed By: #### F IBR #### [facility] [address] [place] [address] WBC (Bld) [#/Vol] 18.1 10*3/uL Critically high 4.8-10.8 [facility] Comment on above: Performed By: #### F IBR #### [facility] [address] [place] [address] Comprehensive Metabolic Pane samina 08-31-2019 Albumin [Mass/Vol] 3.9 g/dL Normal 3.5-4.6 [facility] Comment on above: Performed By: #### C MP #### [facility] [address] [place] [address] ALP [Catalytic activity/Vol] 64 U/L Normal 40-130 [facility] Comment on above: Performed By: #### C MP #### [facility] [address] [place] [address] ALT [Catalytic activity/Vol] 8 U/L Normal 0-33 [facility] Comment on above: Performed By: #### C MP #### [facility] [address] [place] [address] Anion gap [Moles/Vol] 18 mmol/L Critically high 9-15 [facility] Comment on above: Performed By: #### C MP #### [facility] [address] [place] [address] AST [Catalytic activity/Vol] 11 U/L Normal 0-35 [facility] Comment on above: Performed By: #### C MP #### [facility] [address] [place] [address] Bilirubin [Mass/Vol] mg/dL Normal 0.2-0.7 [facility] Comment on above: Performed By: #### C MP #### [facility] [address] [place] [address] Calcium [Mass/Vol] 8.8 mg/dL Normal 8.5-9.9 [facility] Comment on above: Performed By: #### C MP #### [facility] [address] [place] [address] Chloride [Moles/Vol] 99 mmol/L Normal 95-107 [facility] Comment on above: Performed By: #### C MP #### [facility] [address] [place] [address] CO2 [Moles/Vol] 21 mmol/L Normal 20-31 [facility] Comment on above: Performed By: #### C MP #### [facility] [address] [place] [address] Creatinine [Mass/Vol] 0.52 mg/dL Normal 0.50-0.90 [facility] Comment on above: Performed By: #### C MP #### [facility] [address] [place] [address] GFR/1.73 sq M predicted among blacks MDRD (S/P/Bld) [Vol rate/Area] mL/min/{1.73_m2} Normal >60 [facility] Comment on above: Result Comment: >60 mL/min/1.73m2 EGFR, calc. for ages 18 and older using the MDRD formula (not corrected for weight), is valid for stable renal function. Performed By: #### C MP #### [facility] [address] [place] [address] GFR/1.73 sq M.predicted MDRD (S/P/Bld) [Vol rate/Area] mL/min/{1.73_m2} Normal >60 [facility] Comment on above: Result Comment: >60 mL/min/1.73m2 EGFR, calc. for ages 18 and older using the MDRD formula (not corrected for weight), is valid for stable renal function. Performed By: #### C MP #### [facility] [address] [place] [address] Globulin (S) [Mass/Vol] 2.9 g/dL Normal 2.3-3.5 [facility] Comment on above: Performed By: #### C MP #### [facility] [address] [place] [address] Glucose [Mass/Vol] 162 mg/dL Critically high 70-99 [facility] Comment on above: Performed By: #### C MP #### [facility] [address] [place] [address] Potassium [Moles/Vol] 3.4 mmol/L Normal 3.4-4.9 [facility] Comment on above: Performed By: #### C MP #### [facility] [address] [place] [address] Protein [Mass/Vol] 6.8 g/dL Normal 6.3-8.0 [facility] Comment on above: Performed By: #### C MP #### [facility] [address] [place] [address] Sodium [Moles/Vol] 138 mmol/L Normal 135-144 [facility] Comment on above: Performed By: #### C MP #### [facility] [address] [place] [address] Urea nitrogen [Mass/Vol] 7 mg/dL Normal 6-20 [facility] Comment on above: Performed By: #### C MP #### [facility] [address] [place] [address] Lipaseon 08-31-2019 Lipase [Catalytic activity/Vol] 21 U/L Normal 12-95 [facility] Comment on above: Performed By: #### F IBR #### [facility] [address] [place] [address] US ABDOMEN LIMITEDon 020 US ABDOMEN LIMITED [...] Jesusita Turner MD 08/31/[address] [facility] CBC With Platelet and Differ entialon 08-23-2019 Basophils (Bld) [#/Vol] 0.1 10*3/uL Normal 0.0-0.2 [facility] Comment on above: Performed By: #### L DH #### [facility] [address] [place] [address] Basophils/100 WBC (Bld) 1.1 % Normal [facility] Comment on above: Performed By: #### L DH #### [facility] [address] [place] [address] Eosinophils (Bld) [#/Vol] 0.1 10*3/uL Normal 0.0-0.7 [facility] Comment on above: Performed By: #### L DH #### [facility] [address] [place] [address] Eosinophils/100 WBC (Bld) 0.5 % Normal [facility] Comment on above: Performed By: #### L DH #### [facility] [address] [place] [address] Erythrocyte distribution width (RBC) [Ratio] 12.7 % Normal 11.5-14.5 [facility] Comment on above: Performed By: #### L DH #### [facility] [address] [place] [address] Hematocrit (Bld) [Volume fraction] 36.1 % Low 37.0-47.0 [facility] Comment on above: Performed By: #### L DH #### [facility] [address] [place] [address] Hemoglobin (Bld) [Mass/Vol] 12.4 g/dL Normal 12.0-16.0 [facility] Comment on above: Performed By: #### L DH #### [facility] [address] [place] [address] Lymphocytes (Bld) [#/Vol] 2.2 10*3/uL Normal 1.0-4.8 [facility] Comment on above: Performed By: #### L DH #### [facility] [address] [place] [address] Lymphocytes/100 WBC (Bld) 21.2 % Normal [facility] Comment on above: Performed By: #### L DH #### [facility] [address] [place] [address] MCH (RBC) [Entitic mass] 30.9 pg Normal 27.0-31.3 [facility] Comment on above: Performed By: #### L DH #### [facility] [address] [place] [address] MCHC (RBC) [Mass/Vol] 34.4 % Normal 33.0-37.0 [facility] Comment on above: Performed By: #### L DH #### [facility] [address] [place] [address] MCV (RBC) [Entitic vol] 89.8 fL Normal 82.0-100.0 [facility] Comment on above: Performed By: #### L DH #### [facility] [address] [place] [address] Monocytes (Bld) [#/Vol] 0.7 10*3/uL Normal 0.2-0.8 [facility] Comment on above: Performed By: #### L DH #### [facility] [address] [place] [address] Monocytes/100 WBC (Bld) 6.7 % Normal [facility] Comment on above: Performed By: #### L DH #### [facility] [address] [place] [address] Neutrophils (Bld) [#/Vol] 7.4 10*3/uL Critically high 1.4-6.5 [facility] Comment on above: Performed By: #### L DH #### [facility] [address] [place] [address] Neutrophils/100 WBC (Bld) 70.5 % Normal [facility] Comment on above: Performed By: #### L DH #### [facility] [address] [place] [address] Platelets (Bld) [#/Vol] 304 10*3/uL Normal 130-400 [facility] Comment on above: Performed By: #### L DH #### [facility] [address] [place] [address] RBC (Bld) [#/Vol] 4.03 10*6/uL Low 4.20-5.40 [facility] Comment on above: Performed By: #### L DH #### [facility] [address] [place] [address] WBC (Bld) [#/Vol] 10.5 10*3/uL Normal 4.8-10.8 [facility] Comment on above: Performed By: #### L DH #### [facility] [address] [place] [address] Comprehensive Metabolic Pane samina 12-30-2019 Albumin [Mass/Vol] 3.7 g/dL Normal 3.5-4.6 [facility] Comment on above: Performed By: #### L DH #### [facility] [address] [place] [address] ALP [Catalytic activity/Vol] 53 U/L Normal 40-130 [facility] Comment on above: Performed By: #### L DH #### [facility] [address] [place] [address] ALT [Catalytic activity/Vol] 8 U/L Normal 0-33 [facility] Comment on above: Performed By: #### L DH #### [facility] [address] [place] [address] Anion gap [Moles/Vol] 12 mmol/L Normal 9-15 [facility] Comment on above: Performed By: #### L DH #### [facility] [address] [place] [address] AST [Catalytic activity/Vol] 9 U/L Normal 0-35 [facility] Comment on above: Performed By: #### L DH #### [facility] [address] [place] [address] Bilirubin [Mass/Vol] 0.3 mg/dL Normal 0.2-0.7 [facility] Comment on above: Performed By: #### L DH #### [facility] [address] [place] [address] Calcium [Mass/Vol] 9.0 mg/dL Normal 8.5-9.9 [facility] Comment on above: Performed By: #### L DH #### [facility] [address] [place] [address] Chloride [Moles/Vol] 103 mmol/L Normal 95-107 [facility] Comment on above: Performed By: #### L DH #### [facility] [address] [place] [address] CO2 [Moles/Vol] 22 mmol/L Normal 20-31 [facility] Comment on above: Performed By: #### L DH #### [facility] [address] [place] [address] Creatinine [Mass/Vol] 0.39 mg/dL Low 0.50-0.90 [facility] Comment on above: Performed By: #### L DH #### [facility] [address] [place] [address] GFR/1.73 sq M predicted among blacks MDRD (S/P/Bld) [Vol rate/Area] mL/min/{1.73_m2} Normal >60 [facility] Comment on above: Result Comment: >60 mL/min/1.73m2 EGFR, calc. for ages 18 and older using the MDRD formula (not corrected for weight), is valid for stable renal function. Performed By: #### L DH #### [facility] [address] [place] [address] GFR/1.73 sq M.predicted MDRD (S/P/Bld) [Vol rate/Area] mL/min/{1.73_m2} Normal >60 [facility] Comment on above: Result Comment: >60 mL/min/1.73m2 EGFR, calc. for ages 18 and older using the MDRD formula (not corrected for weight), is valid for stable renal function. Performed By: #### L DH #### [facility] [address] [place] [address] Globulin (S) [Mass/Vol] 2.7 g/dL Normal 2.3-3.5 [facility] Comment on above: Performed By: #### L DH #### [facility] [address] [place] [address] Glucose [Mass/Vol] 90 mg/dL Normal 70-99 [facility] Comment on above: Performed By: #### L DH #### [facility] [address] [place] [address] Potassium [Moles/Vol] 3.7 mmol/L Normal 3.4-4.9 [facility] Comment on above: Performed By: #### L DH #### [facility] [address] [place] [address] Protein [Mass/Vol] 6.4 g/dL Normal 6.3-8.0 [facility] Comment on above: Performed By: #### L DH #### [facility] [address] [place] [address] Sodium [Moles/Vol] 137 mmol/L Normal 135-144 [facility] Comment on above: Performed By: #### L DH #### [facility] [address] [place] [address] Urea nitrogen [Mass/Vol] 5 mg/dL Low 6-20 [facility] Comment on above: Performed By: #### L DH #### [facility] [address] [place] [address] Culture, Urineon 08-23-2019 Culture, Urine ORDERED BY: UMESH BOLES SOURCE: Urine Clean Catch COLLECTED: 08/23/19 17:15 ANTIBIOTICS AT [facility].: RECEIVED : 08/23/19 18:14 Culture, Urine FINAL 08/25/19 08:20 No growth [address] [facility] Comment on above: Performed By: #### F IBR #### [facility] [address] [place] [address] Influenza A and Bon 08-23-20 19 Influenza A by PCR Negative Normal [facility] Comment on above: Result Comment: Effe ctive 04/15/19 Please note methodology and/or reference ranges have changed. Performed By: #### L IPAS #### [facility] [address] [place] [address] Influenza B by PCR Negative Normal [facility] Comment on above: Result Comment: Effe ctive 04/15/19 Please note methodology and/or reference ranges have changed. Performed By: #### L IPAS #### [facility] [address] [place] [address] Magnesiumon 08-23-2019 Magnesium [Mass/Vol] 1.6 mg/dL Low 1.7-2.4 [facility] Comment on above: Performed By: #### M G #### [facility] [address] [place] [address] Urinalysis, reflex to cultur margarita 08-23-2019 Bilirubin Ql (U) Negative Normal Negative [facility] Comment on above: Performed By: #### U AR #### [facility] [facility] [address] [place] [address] Clarity (U) TURBID Abnormal Clear [facility] Comment on above: Performed By: #### U AR #### [facility] [address] [place] [address] Color (U) DARK YELLOW Abnormal Straw/Hooker [facility] Comment on above: Performed By: #### U AR #### [facility] [address] [place] [address] Glucose Ql (U) Negative Normal Negative [facility] Comment on above: Performed By: #### U AR #### [facility] [address] [place] [address] Hemoglobin Ql (U) Negative Normal Negative [facility] Comment on above: Performed By: #### U AR #### [facility] [address] [place] [address] Ketones Ql (U) 15 mg/dL Abnormal Negative [facility] Comment on above: Performed By: #### U AR #### [facility] [address] [place] [address] Leukocyte esterase Test strip Ql (U) SMALL Abnormal Negative [facility] Comment on above: Performed By: #### U AR #### [facility] [address] [place] [address] Nitrite Ql (U) Negative Normal Negative [facility] Comment on above: Performed By: #### U AR #### [facility] [address] [place] [address] pH (U) 5.5 [pH] Normal 5.0-9.0 [facility] Comment on above: Performed By: #### U AR #### [facility] [address] [place] [address] Protein Ql (U) TRACE Abnormal Negative [facility] Comment on above: Performed By: #### U AR #### [facility] [address] [place] [address] Specific gravity (U) [Rel density] 1.020 Normal 1.005-1.03 [facility] Comment on above: Performed By: #### U AR #### [facility] [address] [place] [address] Urine Reflexed to Culture YES Normal [facility] Comment on above: Performed By: #### U AR #### [facility] [address] [place] [address] Urobilinogen Qn (U) 0.2 {Ace'U}/dL Normal < 2.0 [facility] Comment on above: Performed By: #### U AR #### [facility] [address] [place] [address] Urine Microscopicon 12-30-20 19 Bacteria LM.HPF (Urine sed) [#/Area] MODERATE Abnormal [facility] Comment on above: Performed By: #### U MAKENNA #### [facility] [address] [place] [address] RBC (U) [#/Vol] 3-5 Abnormal 0-5 [facility] Comment on above: Performed By: #### U MAKENNA #### [facility] [address] [place] [address] Urine Epithelial Cells Auto >100 Critically high 0-5 [facility] Comment on above: Performed By: #### U MAKENNA #### [facility] [address] [place] [address] Urine Hyaline Casts Auto 10-20 Normal 0-5 [facility] Comment on above: Performed By: #### U MAKENNA #### [facility] [address] [place] [address] Urine WBC Auto 10-20 Abnormal 0-5 [facility] Comment on above: Performed By: #### U MAKENNA #### [facility] [address] [place] [address] Provider Note - ED v2on 12-2 Provider [...] Description:CARPAL TUNNEL SURGERY RIGHT Description:D & C SENIOR ACCOUNTS PAYABLE CLERK: Is : yes(1) Is : no(1) RESULTS/VITAL SIGNS VITAL SIGNS: T PRBP SpO2O2(LPM) %FiO2 Method 20-Aug-2019 14:10:[id number]/6 9 room air, no respiratory support MEDICAL [...] From Triage - ED 20-Aug-2019 14:10 Normal [facility] Risk Screen - Adult Emergenc yon [...] instruction; written material Cultural Considerationsnone Developmental Considerationsnone Sabianism Considerationsnone Learning Assessment (Other Learner): Learning Assessment (Other Learner): Other learner availableno Pressure Injury/TB/Substance: Pressure Injury: Do you have a coughyes... Has your cough lasted longer than 2 weeksno Admission Risk Screen: Significant IndicatorsComplete CAGE: CAGE: Is this an injured patient at a Tra[place] Center [place]/[facility]/[place] no Electronic Signatures: Amna Parekh (STAFF N) (Signed 20-Aug-2019 14:16) Authored: Preferred Language, Advanced Directives, Family Violence Adult, Learning Assessment (Patient), Learning Assessment (Other Learner), Pressure Injury/TB/Substance, CAGE Last Updated: 20-Aug-2019 14:16 by Amna Parekh (STAFF N) Normal [facility] Triage - EDon 08-20-2019 Triage - [...] obeys commands Best Verbal Response: (V5) oriented Bovey Score: 15 Cough lasting greater than 3 [...] immediate family member Language: Spoken Language Preferred: Pakistani Reading Language Preferred: Pakistani Public Relations Coordinator Requested: no supervisor network control operators was requested PRIMARY ASSESSMENT MARY PANIAGUA's primary [...] 14:14 by Amna Parekh (STAFF N) Normal [facility] Vital Signs Date Time Vital Sign Value Performing Clinician Jelani aguilar 06-05-2022 12:59-0400 Body height 160.02 cm Moe Garner MD Work Phone: [facility] Work Phone: 06-05-2022 12:59-0400 Body mass index (BMI) [Ratio] 36.15 kg/m2 Moe Graner MD Work Phone: [facility] Work Phone: [...] Provider Facility Start: 03-16-2024 End: 03-16-2024 ambulatory [facility] Start: 03-16-2024 ambulatory Hugo Nixon acility:[facility] Start: 02-24-2024 End: 02-24-2024 ambulatory [facility] Start: 02-24-2024 Encounter for gynecological examination (general) (routine) without abnormal findings [facility] Start: 02-24-2024 End: 02-24-2024 ambulatory [facility] Start: 02-24-2024 Encounter for gynecological examination (general) (routine) without abnormal findings [facility] Start: 01-15-2024 End: 01-15-2024 ambulatory [facility] Start: 12-22-2023 ambulatory [facility] Start: 12-15-2023 End: 12-16-2023 ambulatory [facility] Start: 12-15-2023 End: 12-15-2023 ambulatory [facility] Start: 12-02-2023 End: 12-03-2023 ambulatory [facility] Start: 12-02-2023 End: 12-02-2023 ambulatory [facility] Start: 10-10-2023 End: 10-11-2023 ambulatory [facility] Start: 10-09-2023 End: 10-10-2023 ambulatory [facility] Start: 11-13-2022 End: 11-14-2022 ambulatory Archana Nixon Garcia Facility:[facility] Start: 06-05-2022 Office outpatient ne w 30 minutes Moe Garner MD Work Phone: [facility] Work Phone: Start: 06-05-2022 ambulatory Ms. Mannie Levy Facility:[id number] Start: 02-22-2021 End: 03-15-2021 Discharged Recurring GRANITE CUTTER Mannie Levy Work Phone: [facility] Start: 07-31-2020 End: 08-03-2020 Patient encounter procedure CHRIS Argueta [facility] Start: 03-16-2020 End: 03-16-2020 Emergency department patient visit ZEN Phelps [facility] Start: 11-19-2019 End: 11-20-2019 Patient encounter procedure HERMILA D [facility] Start: 08-31-2019 End: 08-31-2019 Patient encounter procedure MANNIE Major LEVY [facility] Start: 08-23-2019 End: 08-23-2019 Emergency department patient [facility] Procedures Date Procedure Procedure Detail Performing Clinician Start: 12-15-2023 Follow-up visit Follow-up ARCHANA GARCIA Start: 11-20-2019 Antibody screen Comment on above: Performed By: #### C BCDIF, CMP #### [place] [address] Start: 11-20-2019 Cul prsmptv pthgnc o rganism [...] complete auto&auto difrntl wbc HERMILA GUAJARDO Start: 11-19-2019 Lactate dehydrogenase ldh HERMILA GUAJARDO [...] Notes Care Provider Fa cility 02-22-2021 COVID-19 mRNA,UND805 b2 (Pfizer) GRANITE CUTTERPranav Levy Work Phone: [facility] Payers Date Payer Category Payer Self-pay [id number] 2022 Unknown [id number] 2018 Unknown [id number] 1984 Unknown [id number] 2.16.8 40.1.198708.3.579.2.182 1984 Unknown [id number] 2.16.8 40.1.942610.3.579.2.182 1984 Unknown [id number] 2.16.8 40.1.293620.3.579.2.182 1984 Unknown [id number] 2.16.8 40.1.010686.3.579.2.182 1984 Unknown [id number] 2.16.8 40.1.147428.3.579.2.182 1984 Unknown [id number] 2.16. 840.1.075106.3.579.2.356 1984 Unknown [id number] 2.16.8 40.1.090154.3.579.2.718 1984 Unknown [id number] 2.16.8 40.1.763460.3.579.2.173 1984 Unknown [id number] 2.16.8 40.1.405284.3.579.2.173 1984 Unknown [id number] 2.16.8 40.1.303378.3.579.2.1286 1984 Unknown [id number] 2.16.8 40.1.910426.3.579.2.1286 1984 Unknown [id number] 2.16.8 40.1.329737.3.579.2.1286 1984 Unknown [id number] 2.16.8 40.1.526335.3.579.2.1286 1984 Unknown [id number] 2.16.8 40.1.532133.3.579.2.983 1984 Unknown [id number] 2.16.8 40.1.426274.3.579.2.1286 1984 Unknown [id number] 2.16.8 40.1.891356.3.579.2.1286 1984 Unknown [id number] 2.16.8 40.1.460446.3.579.2.1286 1984 Unknown [id number] 2.16.8 40.1.916651.3.579.2.1286 1984 Unknown [id number] 2.16.8 40.1.227351.3.579.2.1286 1984 Unknown [id number] 2.16.8 40.1.870463.3.579.2.1286 Unknown [employer] Unknown [id number] 2.16.8 40.1.706904.3.579.2.531 Social History Date Type Detail Facility Tobacco smoking stat [facility] Unknown if ever smoked [facility] Start: 1985 Sex Assigned At Female [facility] Current smoker Current smoker [facility] [...] moderate.This note was created using speech recognition police liaison software/or [employer] police liaison services. Despite proofreading, several typographical errors might [...] stapedectomy for otosclerosis is an elective procedure. [facility] Work Phone: Evaluation note Note Date & Type Note Facility Evaluation note No assessment information [facility] Summary Purpose Family History No Family History [...] 1 1:00pm Hospital Course Note HNO ID: [id number] Author: Pranav Gipson (ResChana Esquivel MD Service: [...] (more content not included)... Note HNO ID: [id number] Author: Brandan narvaez (Res) MD Bony Service: Obstetrics Author Type: Resident Type: Procedures Filed: 11/20/2019 7:01 PM Note Text: OB BEDSIDE PROCEDURE NOTE [facility] PROCEDURE DATE: November 20, 2019 PROCEDURE START TIME: 6:59 PM PRIMARY PROCEDURALIST: John Lovett MD TOURIST CAMP ATTENDANT(S): None Informed Consent: Informed Consent obtained and on the chart [place] Protocol/Safety Checklist: Sign in Communication: Completed Time [...] (more content not included)... Note HNO ID: [id number] Author: Brandan West) MAXIMO Cline.VEGETABLE WASHER Service: ? Author Type: Nurse Switchboard Manager Type: Anesthesia Procedure Notes Filed: 11/20/2019 8:12 PM Note Text: ANESTHESIOLOGY PROCEDURE NOTE Epidural Block General Information Procedure Start Time/Medication Administration: 11/20/2019 7:35 PM Patient location during procedure: LANDD roomTimeout Performed Pre-procedure: timeout performed Consent Obtained: Yes Patient identity confirmed: arm band, care logistics team lead and patient Reason for block: labor epidural Staffing VEGETABLE WASHER: Jose (Ceramic Tile Installer) Stegman, GRANITE CUTTER.VEGETABLE WASHER Performed by: VEGETABLE WASHER Preparation Sterility Preparation: hand hygiene performed prior [...] not included)... Procedure Findings Note HNO ID: [id number] Author: Brandan narvaez (Kwaku) MD [place] Service: Obstetrics Author Type: Resident Type: Procedures Filed: 11/20/2019 7:01 PM Note Text: OB BEDSIDE PROCEDURE NOTE [facility] PROCEDURE DATE: November 20, 2019 PROCEDURE START TIME: 6:59 PM PRIMARY PROCEDURALIST: John Lovett MD TOURIST CAMP ATTENDANT(S): None Informed Consent: Informed Consent obtained and on the chart [place] Protocol/Safety Checklist: Sign in Communication: Completed Time [...] (more content not included)... Note HNO ID: [id number] Author: Brandan Cline APRN.VEGETABLE WASHER Service: ? Author Type: Nurse Switchboard Manager Type: Anesthesia Procedure Notes Filed: 11/20/2019 8:12 PM Note Text: ANESTHESIOLOGY PROCEDURE NOTE Epidural Block General Information Procedure Start Time/Medication Administration: 11/20/2019 7:35 PM Patient location during procedure: LANDD roomTimeout Performed Pre-procedure: timeout performed Consent Obtained: Yes Patient identity confirmed: arm band, care logistics team lead and patient Reason for block: labor epidural Staffing VEGETABLE WASHER: Jose Cline APRN.VEGETABLE WASHER Performed by: CARLOS Preparation Sterility Preparation: hand [...] section and content) DATE CREATED AUTHOR 08/20/2019 [facility] DATE CREATED AUTHOR AUTHOR'S ORGANIZ ATION 11/23/2019 [facility] DATE CREATED AUTHOR AUTHOR'S ORGANIZ ATION 08/04/2020 [facility] DATE CREATED AUTHOR AUTHOR'S ORGANIZ ATION 09/01/2020 [facility] DATE CREATED AUTHOR AUTHOR'S ORGANIZ ATION 04/26/2021 [facility] DATE CREATED AUTHOR AUTHOR'S ORGANIZ ATION 06/05/2022 [facility] DATE CREATED AUTHOR AUTHOR'S ORGANIZ ATION 06/05/2022 [employer] DATE CREATED AUTHOR AUTHOR'S ORGANIZ ATION 11/14/2022 [facility] DATE CREATED AUTHOR AUTHOR'S ORGANIZ ATION 10/14/2023 [facility] DATE CREATED AUTHOR AUTHOR'S ORGANIZ ATION 12/16/2023 [facility] DATE CREATED AUTHOR AUTHOR'S ORGANIZ ATION 12/16/2023 [facility] DATE CREATED AUTHOR AUTHOR'S ORGANIZ ATION [facility]20[facility] DATE CREATED AUTHOR AUTHOR'S ORGANIZ ATION 03/11/2024 [facility] DATE CREATED AUTHOR AUTHOR'S ORGANIZ ATION 03/19/2024 [facility] DATE CREATED AUTHOR AUTHOR'S ORGANIZ ATION 03/19/2024 [facility] Goals (unrecognized section and [...] BE BASED ON THE PRIMARY CLINICAL RECORDS. [employer] [facility]. provides no warranty or guarantee of the accuracy or completeness of information in this document.
== END 2024-03-25 14:38 | disposition home or self-care (01) ==
LOC: LAB 14:37
PROVIDERS: Visit Provider Nurse Practitioner
DX: R05.9 Cough, unspecified (principal); D64.9 Anemia, unspecified; F17.210 Nicotine dependence, cigarettes, uncomplicated
CPT/HCPCS: 36415; 71046; 82607; 82728; 82746; 83540; 83550

== ENCOUNTER 2024-04-23 15:20 | Observation (INO) | payer OTHER, SELFPAY ==
[2024-04-23] VITALS (34 sets, daily range): BP systolic 106–143; BP diastolic 66–94; PULSE 78–101; TEMP 36.8–37.4; O2SAT 95–100; BMI 36.6; BMI 38.3
--- NOTE | 2024-04-23 15:51 | XR_ITS ---
The [address] [address] Patient Name: MARY THOMPSON MRN: [id number] date: 1985 Sex: F Assigned Patient Location: ER Current Patient Location: ER Accession/Order Number: [id number] Exam Date: 04/23/2024 16:12 Report Date: 04/23/2024 16:30 At the request of: KERI VIERA Procedure: XR chest 1V EXAM: XR chest 1V HISTORY: fever cough COMPARISON: 03/25/2024 TECHNIQUE: AP upright chest x-ray FINDINGS: Lungs clear without infiltrate or edema or new density. Normal heart size and mediastinal contour. No pleural effusion or pneumothorax XR/XR chest 1V IMPRESSION: Negative chest x-ray, no acute findings. Stable Electronically authenticated by: TERI DELAROSA Date: 04/23/2024 16:30
--- NOTE | 2024-04-23 15:51 | ECG_ITS ---
[facility] Test Date: 2024-04-23 Pat Name: MARY THOMPSON Department: Room: - Gender: Female Quality Systems Technician: : 1985 Requested By: [id number] Order Number: [id number] Reading MD: MONA BRAVO Measurements Intervals [place] Rate: 89 P: 64 KS: 152 QRS: 43 QRSD: 78 T: 46 QT: 342 QTc: 389 Interpretive Statements 1100 Sinus rhythm 8102 Low QRS voltage in chest leads 9120 atypical ECG Compared to ECG 02/12/2024 08:19:14 No significant changes Electronically Signed On 04-23-2024 18:27:46 EDT by MONA BRAVO
--- NOTE | 2024-04-23 15:55 | ED.GENADUL1 ---
HPI HPI - General Adult General Chief complaint: Abdominal Pain Stated complaint: DIZZINESS BODY ACHES ABDOMINAL PAIN Time Seen by Provider: 04/23/24 15:45 Source: patient Mode of arrival: walk-in Limitations: no limitations History of Present Illness HPI narrative: Patient is a 39-year-old female presents to the ER with concerns of bodyaches and lower back pain. Patient notes slight cough nonproductive and chest discomfort. Symptoms started around 4 am with lower back pain and bilateral flank pain . she took Tylenol this morning along with Motrin some temporary relief. Patient has been 7 months sober from cocaine abuse and lives in a penit[facility]iary. Her roommate at bedside states multiple people have had COVID but the patient just darted coughing today. Patient was seen last week for ovarian cyst with ultrasound she reports some difficulty with urination and notes some muscle aches. Patient denies shortness of breath, ambulates easily but does appear uncomfortable. Patient converses easily and appears nontoxic. Location: Reports back Severity: moderate Pain Consistency: Reports constant Relieving factors: Reports medication Treatments prior to arrival: Reports NSAID Related Data Home Medications ?Medication ?Instructions ?Recorded ?Confirmed albuterol sulfate 90 mcg/actuation inhalation 04/23/24 aerosol inhaler escitalopram oxalate 20 mg tablet 20 mg PO DAILY 04/23/24 04/23/24 (Lexapro) Allergies Allergy/AdvReac Type Severity Reaction Status Date / Time No Known Drug Allergies Allergy Verified 04/23/24 15:35 Opioid HPI Opioid Management Most Recent Opioid Data: Last Pain Scale 10 04/23/24 17:14 Last MAR Pain Assessment 04/23/24 17:14 Review of Systems ROS Constitutional Denies: fever or chills Eyes Denies: change in vision Ears, nose, mouth, and throat Denies: throat pain or neck pain Cardiovascular Reports: chest pain; Denies: palpitations or shortness of breath when lying down Respiratory Denies: shortness of breath, cough or wheezing Gastrointestinal Denies: abdominal pain or nausea Genitourinary Denies: painful urination Musculoskeletal Reports: back pain; Denies: neck pain, extremity pain or joint pain Integumentary/Breast Denies: rash, itching or redness Neurological Denies: numbness in extremities Psychiatric Denies: anxiety Endocrine Denies: excessive urination Allergic/Immunologic Denies: hives Exam Narrative Exam Narrative: Nurses notes and vital signs reviewed and patient is not hypoxic. General: The patient appears well and in no apparent distress. Patient is resting comfortably on cart. Skin: Warm, dry, no pallor noted. No evidence of zoster rash Head: Normocephalic, atraumatic Neck: Supple, trachea mid-line, no tenderness, no lymphadenopathy Eye: Pupils are equal, round and reactive to light, EOMI Ears, Nose, Mouth, and Throat: TM are clear, normal light reflex, oral mucosa is moist, no posterior oropharynx erythema or hypertrophy, uvula is mid-line Cardiovascular: Regular Rate and Rhythm Respiratory: Patient is in no distress, no accessory muscle use, lungs are clear to auscultation, no wheezing, rales or rhonchi. Chest Wall: no tenderness Back: para vertebral lumbar tender, + CVA tenderness, no midline lumbar tenderness. Musculoskeletal: normal ROM, no tenderness, no swelling GI: Normal bowel sounds, no tenderness to palpation, no masses appreciated. No rebound, guarding, or rigidity noted. Neurological: A&O x4 Psychiatric: Cooperative Constitutional Vital Signs, click to edit/add: Last Vital Signs Temp 99.3 F 04/23/24 15:28 Pulse 101 H 04/23/24 15:28 Resp 24 H 04/23/24 15:28 BP 143/81 H 04/23/24 15:28 Pulse Ox 97 04/23/24 15:28 O2 Del Method Room Air 04/23/24 15:28 Course Vital Signs Vital signs: Vital Signs Temperature 99.3 F 04/23/24 15:28 Pulse Rate 101 H 04/23/24 15:28 Respiratory Rate 24 H 04/23/24 15:28 Blood Pressure 143/81 H 04/23/24 15:28 Pulse Oximetry 97 04/23/24 15:28 Oxygen Delivery Method Room Air 04/23/24 15:28 Temperature 99.3 F 04/23/24 15:28 Pulse Rate 101 H 04/23/24 15:28 Respiratory Rate 24 H 04/23/24 15:28 Blood Pressure 143/81 H 04/23/24 15:28 Pulse Oximetry 97 04/23/24 15:28 Oxygen Delivery Method Room Air 04/23/24 15:28 Medical Decision Making MDM Narrative Medical decision making narrative: Patient with low back pain, bilateral flank pain. Previous ultrasound discussed over a week ago. Evidence of UTI on urine. Patient reports family history of kidney stones. We discussed her sobriety and she reports no change in pain with tizanidine and Toradol, Tylenol. Patient agreeable to a dose of morphine pending CT study of her abdomen and pelvis. Evaluated, she is much improved after receiving dose of morphine, patient appears comfortable. We discussed her lab work with elevated white blood cell count, borderline elevated lactic acid, low-grade fever on arrival with tachycardia, her urine showing evidence of some infection, given the CVA tenderness CT was ordered to rule out stone, showing evidence of pyelonephritis. Right kidney. We discussed the results at bedside and given patient's social circumstances, symptoms and discomfort recommend observation for IV hydration and reevaluation. Patient received 2 L of fluids here, blood cultures will be pending along with urine culture. Verbalize she is aware of the incidental finding of a cyst on her liver and the need for further evaluation likely outpatient. Her PCP [facility] in [facility] Has been 7 months sober from cocaine abuse. Living in a penitentiary for sobriety. Case discussed with [facility] hospitalist agreeable to admission observation with patient's social history and treatments above discussed. Medical Records Medical records reviewed: Yes I reviewed the patient's medical records Medical records narrative: US pelvis 03/25/24: IUD within endometrial cavity. Otherwise unremarkable uterus and endometrium. 2. Large heterogeneous 4.5 cm rounded area within left ovary suspected represent complex cysts. A hypovascular mass and an endometrioma cannot be excluded. Follow-up ultrasound evaluation in 6 weeks is recommended to document change/regression. Lab Data Labs: Lab Results 04/23/24 04/23/24 Range/Units 15:45 15:50 WBC 12.3 H (4.0-11.0) 10^3/uL RBC 3.94 L (4.20-5.40) 10^6/uL Hgb 11.4 L (12.0-16.0) g/dL Hct 33.0 L (36.0-48.0) % MCV 83.8 (81.0-99.0) fL MCH 28.9 (26.7-34.0) pg MCHC 34.5 (29.9-35.2) g/dL RDW 11.9 (11.0-15.0) % Plt Count 229 (150-450) 10^3/uL MPV 9.3 L (9.5-13.5) fL Neut % (Auto) 75.7 H (43.0-75.0) % Lymph % (Auto) 12.9 L (20.5-60.0) % [place] % (Auto) 10.2 (1.7-12.0) % Eos % (Auto) 0.7 L (0.9-7.0) % Baso % (Auto) 0.2 (0.2-2.0) % Neut # (Auto) 9.3 H (1.4-6.5) 10^3/uL Lymph # (Auto) 1.6 (1.2-3.8) 10^3/uL [place] # (Auto) 1.3 H (0.3-0.8) 10^3/uL Eos # (Auto) 0.1 (0.0-0.7) 10^3/uL Baso # (Auto) 0.0 (0.0-0.1) 10^3/uL Abs Immat Gran (auto) 0.04 H (0.00-0.03) 10^3/uL Imm/Tot Granulo (auto) 0.3 (0.0-0.5) % Sodium 138 (136-145) mmol/L Potassium 3.6 (3.5-5.1) mmol/L Chloride 101 (98-107) mmol/L Carbon Dioxide 26.3 (21.0-32.0) mmol/L Anion Gap 14.3 BUN 13.0 (7.0-18.0) mg/dL Creatinine 0.89 (0.55-1.02) mg/dL Est GFR ( Amer) >60 (>=60) Est GFR (Non-Af Amer) >60 (>=60) BUN/Creatinine Ratio 14.6 Glucose 163 H (74-106) mg/dL Lactate 2.1 H (0.4-2.0) mmol/L Calcium 9.2 (8.5-10.1) mg/dL Total Bilirubin 0.3 (0.2-1.0) mg/dL AST 11 L (15-37) U/L ALT 18 (14-59) U/L Alkaline Phosphatase 73 (46-116) U/L Troponin I High Sens <4.0 L (4.0-51.3) pg/mL Total Protein 7.0 (6.4-8.2) g/dL Albumin 3.8 (3.4-5.0) g/dL Globulin 3.2 g/dL Albumin/Globulin Ratio 1.2 Lipase 38.0 (16.0-77.0) U/L Serum HCG, Qual Negative (NEGATIVE) Urine Color Lt. yellow (YELLOW) Urine Clarity Clear (CLEAR) Urine pH 5.5 (5.0-9.0) Ur Specific [place] >=1.030 A (1.005-1.025) Urine Protein Negative (NEG/TRACE) mg/dL Urine Glucose (UA) Negative (NEGATIVE) mg/dL Urine Ketones Negative (NEGATIVE) mg/dL Urine Occult Blood Negative (NEGATIVE) Urine Nitrite Negative (NEGATIVE) Urine Bilirubin Negative (NEGATIVE) Urine Urobilinogen 0.2 (0.2-1.0) EU/dL Ur Leukocyte Esterase Small A (NEGATIVE) Urine RBC 0-2 (0-2) #/HPF Urine WBC 5-10 A (NONE SEEN) #/HPF Ur Squamous Epith Cells Moderate A (NONE/RARE) #/LPF Urine Crystals None seen (None Seen) #/HPF Urine Bacteria Moderate A (NONE SEEN) #/HPF Urine Casts None seen (NONE SEEN) #/LPF Urine Mucus Trace A (NONE SEEN) Ur Culture Indicated? Yes Influenza Type A Ag Negative Influenza Type B Ag Negative SARS-CoV-2 Ag (CV2AG) Negative (NEGATIVE) Imaging Data Chest x-ray: Radiologist's impression: ITS Impressions Chest X-Ray 04/23/24 15:51 IMPRESSION: Negative chest x-ray, no acute findings. Stable Electronically authenticated by: TERI DELAROSA Date: 04/23/2024 16:30 Abdomen/Pelvis CT 04/23/24 16:43 IMPRESSION: 1. Findings are suggestive of right pyelonephritis. 2. Heterogeneous 4.1 cm right hepatic lobe lesion. Recommend nonemergent MRI liver protocol for further evaluation. Electronically authenticated by: ZOE FRANKLIN Date: 04/23/2024 17:57 CT scan - abdomen: Radiologist's impression: ITS Impressions Chest X-Ray 04/23/24 15:51 IMPRESSION: Negative chest x-ray, no acute findings. Stable Electronically authenticated by: TERI DELAROSA Date: 04/23/2024 16:30 Abdomen/Pelvis CT 04/23/24 16:43 IMPRESSION: 1. Findings are suggestive of right pyelonephritis. 2. Heterogeneous 4.1 cm right hepatic lobe lesion. Recommend nonemergent MRI liver protocol for further evaluation. Electronically authenticated by: ZOE FRANKLIN Date: 04/23/2024 17:57 ECG Data Attestation: I personally reviewed and interpreted this ECG as follows: Interpretation: EKG interpretation: Emergency Department physician interpretation, normal sinus rhythm 89 bpm , no ectopy, no ST segment elevation, normal axis. Discharge Plan Discharge Chief Complaint: Abdominal Pain Clinical Impression: Pyelonephritis Patient Disposition: Admitted as Observation Time of Disposition Decision: 18:36 Condition: Good Prescriptions / Home Meds: No Action albuterol sulfate 90 mcg/actuation HFA aerosol inhaler inhalation escitalopram oxalate [Lexapro] 20 mg tablet 20 mg PO DAILY Print Language: [place] Referrals: Physician,Non-Staff, MD [Primary Care Provider] - 1 week
[2024-04-23] MEDS: ACETAMINOPHEN 500 MG TABLET 1000 MG PO (16:04)
[2024-04-23] MEDS: TIZANIDINE HCL 4 MG TABLET PO (16:04)
[2024-04-23] MEDS: ONDANSETRON PF 4 MG/2 ML VIAL IV (16:05)
[2024-04-23] MEDS: 0.9 % SODIUM CHLORIDE 1,000 ML 999 ML IV ×2 (16:05→18:31)
[2024-04-23] MEDS: KETOROLAC TROMETHAMINE 30 MG/ML VIAL IVP (16:05)
[2024-04-23 16:18] LABS: Basophils Percent Auto 0.2 % (0.2-2.0); Eosinophils Absolute Auto 0.1 10^3/uL (0.0-0.7); Eosinophils Percent Auto 0.7 % (0.9-7.0); Hemoglobin 11.4 g/dL (12.0-16.0); Immature Granulocytes Abs Auto 0.04 10^3/uL (0.00-0.03); Immature Granulocytes Pct Auto 0.3 % (0.0-0.5); Lymphocytes Absolute Auto 1.6 10^3/uL (1.2-3.8); Lymphocytes Percent Auto 12.9 % (20.5-60.0); Mean Corpuscular HGB Conc 34.5 g/dL (29.9-35.2); Mean Corpuscular Hemoglobin 28.9 pg (26.7-34.0); Mean Corpuscular Volume 83.8 fL (81.0-99.0); Mean Platelet Volume 9.3 fL (9.5-13.5); Monocytes Absolute Auto 1.3 10^3/uL (0.3-0.8); Monocytes Percent Auto 10.2 % (1.7-12.0); Neutrophils Absolute Auto 9.3 10^3/uL (1.4-6.5); Neutrophils Percent Auto 75.7 % (43.0-75.0); Platelet Count 229 10^3/uL (150-450); Red Blood Count 3.94 10^6/uL (4.20-5.40); Red Cell Distribution Width 11.9 % (11.0-15.0); White Blood Count 12.3 10^3/uL (4.0-11.0)
[2024-04-23 16:19] LABS: Bilirubin Urine NEGATIVE (NEGATIVE); Blood Urine NEGATIVE (NEGATIVE); Clarity Urine CLEAR (CLEAR); Color Urine LT. YELLOW (YELLOW); Glucose Urine UA NEGATIVE (NEGATIVE); Ketones Urine NEGATIVE (NEGATIVE); Leukocyte Esterase Urine SMALL (NEGATIVE); Nitrite Urine NEGATIVE (NEGATIVE); Protein Urine NEGATIVE (NEG/TRACE); Specific Gravity Urine >=1.030 (1.005-1.025); Urobilinogen Urine 0.2 EU/dL (0.2-1.0); pH Urine 5.5 (5.0-9.0)
[2024-04-23 16:24] LABS: Urine Microscopic Indicated YES
[2024-04-23 16:29] LABS: HCG Qualitative NEGATIVE (NEGATIVE); Internal Control Within Normal Limits
[2024-04-23 16:30] LABS: Influenza Virus A Antigen Negative; Influenza Virus B Antigen Negative; Internal Control Within Normal Limits; SARS-CoV-2 Ag NEGATIVE (NEGATIVE)
[2024-04-23 16:31] LABS: Bacteria Urine MODERATE #/HPF (NONE SEEN); Cast Seen? NONE SEEN #/LPF (NONE SEEN); Crystals Seen? None Seen #/HPF (None Seen); Mucus Urine TRACE (NONE SEEN); RBC Urine 0-2 #/HPF (0-2); Squamous Epithelial Cell Urine MODERATE #/LPF (NONE/RARE); Urine Culture Indicated YES
[2024-04-23 16:43] LABS: Alanine Aminotransferase 18 U/L (14-59); Albumin Globulin Ratio 1.2; Albumin Level 3.8 g/dL (3.4-5.0); Alkaline Phosphatase 73 U/L (46-116); Anion Gap 14.3; Aspartate Amino Transferase 11 U/L (15-37); BUN Creatinine Ratio 14.6; Bilirubin Total 0.3 mg/dL (0.2-1.0); Calcium 9.2 mg/dL (8.5-10.1); Carbon Dioxide 26.3 mmol/L (21.0-32.0); Chloride 101 mmol/L (98-107); Estimated GFR (African America >60 (>=60); Estimated GFR (Non-African Ame >60 (>=60); Globulin 3.2 g/dL; Glucose 163 mg/dL (74-106); Potassium 3.6 mmol/L (3.5-5.1); Sodium 138 mmol/L (136-145); Troponin I High Sensitivity <4.0 pg/mL (4.0-51.3)
--- NOTE | 2024-04-23 16:43 | CT_ITS ---
The [address] [address] Patient Name: MARY THOMPSON MRN: [id number] date: 1985 Sex: F Assigned Patient Location: ER Current Patient Location: ER Accession/Order Number: [id number] Exam Date: 04/23/2024 17:00 Report Date: 04/23/2024 17:57 At the request of: KERI VIERA Procedure: CT abdomen pelvis wo con CT ABDOMEN/PELVIS WITHOUT IV CONTRAST. INDICATION: flank pain, back pain UTI. COMPARISON: There are no other studies available for comparison. TECHNIQUE: Contiguous axial images were obtained from the lung bases to the pelvic floor without intravenous or oral contrast. Coronal and sagittal reformations are provided. FINDINGS: LOWER LUNGS: Clear. LIVER/BILIARY TREE: There is an ill-defined heterogeneous lesion in the right hepatic lobe measuring approximately 5.1 x 2.3 cm. No intrahepatic ductal dilatation. GALLBLADDER: No significant gallbladder wall thickening. No radiopaque stone. CBD: Normal CBD. SPLEEN: Normal in size. PANCREAS: No appreciable peripancreatic fluid. No pancreatic ductal dilatation. No discrete lesion. ADRENALS: Normal. KIDNEYS: There is right perinephric stranding. No hydronephrosis. No radiopaque calculus. STOMACH AND BOWEL: Stomach is unremarkable. No dilated bowel loops. No bowel wall thickening. APPENDIX: Normal appendix. PERITONEAL CAVITY: No fluid. There is right perinephric stranding. ABDOMINAL WALL: No subcutaneous stranding. No subcutaneous fluid collection. LYMPH NODES: No mesenteric or retroperitoneal lymphadenopathy by CT criteria. ABDOMINAL AORTA: No aneurysm. PELVIS: No acute abnormality. IUD in place. MUSCULOSKELETAL: No acute osseous abnormality. CT/CT abdomen pelvis wo con IMPRESSION: 1. Findings are suggestive of right pyelonephritis. 2. Heterogeneous 4.1 cm right hepatic lobe lesion. Recommend nonemergent MRI liver protocol for further evaluation. Electronically authenticated by: ZOE FRANKLIN Date: 04/23/2024 17:57
[2024-04-23 16:49] LABS: Lactate/Lactic Acid 2.1 mmol/L (0.4-2.0)
[2024-04-23] MEDS: MORPHINE SULFATE 4 MG/ML VIAL IV (17:14)
[2024-04-23] MEDS: CEFTRIAXONE 1,000 MG in 0.9 % SODIUM CHLORIDE 50 ML 100 MG IV (18:34)
[2024-04-23] MEDS: CIPROFLOXACIN IN 5 % DEXTROSE 400 MG/200 ML PREMIX 200 MG IV (18:36)
[2024-04-23 19:07] LABS: Lactate/Lactic Acid 2.9 mmol/L (0.4-2.0)
--- OUTSIDE RECORDS SUMMARY | 2024-04-23 19:48 | XMS_ITS | CCD ---
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 Mannie Levy Primary Care Unav ailable Marcelo, Stacy [place] Referring Unavaila gibson Garner, Dr. Moe Victoria Attending Unavail able Pending Provider Unavailable Unavailable Unavailable Unavailable Archana Garcia Primary Care Unavailable Archana Garcia Admitting Unavailable Archana Garcia Attending Unavailable COSMO, ABE Referring Unavailable LEVY, MANNIE E Primary Care Unavailable COSMO, ABE Referring Unavailable LEVY, MANNIE E Primary Care Unavailable ALANA MERCEDEZ M Referring Unavailable ARCHANA GARCIA Primary Care Unavailable ALANA MERCEDEZ M Referring Unavailable ARCHANA GARCIA Primary Care Unavailable ARCHANA GARCIA Referring Unavailable ARCHANA GARCIA Primary Care Unavailable SELF, SELF Primary Care Unavailable SELF, SELF Referring Unavailable Joanne MEAD Attending Unavailable ALANA MERCEDEZ M Referring Unavailable ARCHANA GARCIA Primary Care Unavailable ARCHANA GARCIA Referring Unavailable ARCHANA GARCIA Primary Care Unavailable ARCHANA GARCIA Attending Unavailable GARCIA, ARCHANA Referring Unavailable GARCIA, ARCHANA Primary Care Unavailable GARCIA, ARCHANA Attending Unavailable GARCIA, ARCHANA Referring Unavailable GARCIA, ARCHANA Primary Care Unavailable GARCIA, ARCHANA Referring Unavailable GARCIA, ARCHANA Primary Care Unavailable GARCIA, ARCHANA Attending Unavailable GARCIA, ARCHANA Referring Unavailable GARCIA, ARCHANA Primary Care Unavailable Hugo Darnell Admitting Unavailab Hugo Howe Attending Unavailab Mannie Quiñones Primary Care Unavailable Medications Completed/Discontinued Medications Medication [...] Reference Range Facility Cytologyon 02-24-2024 Cytology Normal [facility] Comment on above: Result Comment: [facility] [address] [place] [address] Gynecologic Cytology Consultation Patient Name:MARY PANIAGUA:1985 (Age: 38)Gender:FTaken:4Reported:4Physician(s):Mercedez Isbell APRN-CNPDarshan To: Rec. #:[id number]: #[id number] Final Cytologic Interpretation ThinPrep Pap Test (Cervical): Satisfactory for evaluation. A transformation zone component is present. NEGATIVE FOR INTRAEPITHELIAL LESION OR MALIGNANCY. jja/03/05/2024 Interpretation performed at [facility], [address] [place] [id number], License number: [id number]. Electronically Signed Out By HODA Rankin(ASCP) Date of Last Menstrual Period: 02/10/24 Other Clinical Conditions: Z01.419 Butter Maker exam wo/abn findings IUD Source of Specimen ThinPrep Pap Test (Cervical) Thin Prep Pap (CARBON SETTER) Fee Code(s): G0145 The Pap test is a screening test with an inherent, but low, probability of error. The Pap test is primarily effective for the diagnosis and prevention of squamous cell carcinoma. Regular screening is critical for prevention. ThinPrep liquid-based slides, which meet the Heavy Rail Train Operator criteria for automated screening, have been screened by the ThinPrep Imaging System (as of 05/11/07) along with an additional manual rescreening by a creative project manager and, if indicated, by a pathologist. HIGH RISK HPV W/GENOon 02-23 HPV 31+33+35+39+45+51+52+56 +58+59+66+68 DNA FALLON+probe Ql (Cvx) HPV SPECIMEN TYPE ThinPrep HPV 16 Negative (qualifier value) HPV 18 Negative (qualifier value) OTHER HIGH RISK HPV Negative (qualifier value) HPV types 31,33,35,39,45,52,56,5 8,59,66 and 68 DNA were undetectable. Normal [facility] Comment on above: Performed By: #### 7 1431-1 #### [facility] ([id number]) [address] [place] [address], [place] [address] [facility] ([id number]) [address] [place] [address], [address] [place] [address] XR FINGER THUMB LT MIN 2 VWS [...] Lyons MD on 12/16/2023 6:38 AM Normal [facility] XR SPINE CERVICAL 3 VWS [...] Lyons MD on 12/16/2023 6:39 AM Normal [facility] ACUTE HEPATITIS PANELon 11-24 ANTI HCV W/PCR REFLX Non-Reactive Normal NRCT [facility] Comment on above: Result Comment: If recent infection suspected, recommend repeat testing (>2 months). Ycouny-gp-afuqlc ratio is <0.80. Performed By: #### A HP, 73453-6, 36300-4 #### [facility] ([id number]) [address], [address] [place] [address] HEPATITIS A IGM Non-Reactive Normal NRCT [facility] Comment on above: Performed By: #### [place] HP, 14169-1, 41317-2 #### [facility] ([id number]) [address], [address] [place] [address] HEPATITIS B CORE IGM Negative Normal NEG [facility] Comment on above: Performed By: #### A HP, 14961-6, 05730-2 #### [facility] ([id number]) [address], [address] [place] [address] HEPATITIS B SURF AG Negative Normal NEG [facility] Comment on above: Performed By: #### A HP, 85411-4, 22502-1 #### [facility] ([id number]) [address] [place] [address], [address] [address] HIV 1+2 Ab+HIV1 p24 Ag IA Ql on 12-15-2023 HIV 1 and 2 Ab/Ag Screen Non-Reactive Normal NRCT [facility] Comment on above: Result Comment: This [...] or diagnoses. Performed By: #### A , 02615-0, 51990-7 #### [facility] ([id number]) [address] [place] [address], [address] [address] T. pallidum IgG+IgM IA Ql (S )on 12-15-2023 Syphilis Total <0.2 Normal 0.0-0.8 [facility] Comment on above: Result Comment: NON REACTIVE No serologic evidence of infection to Treponema pallidum (syphilis). Repeat testing may be considered in patients with suspected acute or primary syphilis in 2 to 4 weeks. Performed By: #### A , 64422-3, 25822-6 #### [facility] ([id number]) [address] [place] [address], [address] [address] CHLAMYDIA/GC BY PCRon 2023 CHLAMYDIA/GC BY PCR [...] are dependent on adequate specimen collection. Normal [facility] Comment on above: Performed By: #### C GS #### [facility] ([id number]) [address] [place] [address], [address] [place] [address] VAGINITIS PANEL PCRon 2023 VAGINITIS PANEL PCR [...] clinical presentation to determine patient diagnosis. Normal [facility] Comment on above: Performed By: #### V PPCR #### [facility] ([id number]) [address] [place] [address], [address] [place] [address] Chlamydia/GC,DNA Ampon 10-13 Chlamydia Probe Negative Normal NEG [facility] Comment on above: Result Comment: CHLA [...] G LYHGB, PHEP, SWCGP, TREP, HIVCMB #### [address] [address] Inventory Control Clerk: Pablo Pelaez MD #### CP, CBC, HCG #### [address] [place] [id number] Inventory Control Clerk: Manuel Mayorga MD Gonorrhea Probe Negative Normal NEG [facility] Comment on above: Result Comment: NEIS [...] G LYHGB, PHEP, SWCGP, TREP, HIVCMB #### [address] [id number] Inventory Control Clerk: Pablo Pelaez MD #### CP, CBC, HCG #### [address] [place] [id number] Inventory Control Clerk: Manuel Mayorga MD CBCon 10-10-2023 Erythrocyte distribution width (RBC) [Ratio] 13.6 % Normal 11.8-14.4 [facility] Comment on above: Performed By: #### G LYHGB, PHEP, SWCGP, TREP, HIVCMB #### [address] [id number] Inventory Control Clerk: Pablo Pelaez MD #### CP, CBC, HCG #### [address] [place], [place] 3135583 Inventory Control Clerk: Manuel Mayorga MD Hematocrit (Bld) [Volume fraction] 42.4 % Normal 36.3-47.1 [facility] Comment on above: Performed By: #### G LYHGB, PHEP, SWCGP, TREP, HIVCMB #### [address] [id number] Inventory Control Clerk: Pablo Pelaez MD #### CP, CBC, HCG #### [address] [place] [address] Inventory Control Clerk: Manuel Mayorga MD Hemoglobin (Bld) [Mass/Vol] 13.7 g/dL Normal 11.9-15.1 [facility] Comment on above: Performed By: #### G LYHGB, PHEP, SWCGP, TREP, HIVCMB #### [address] [id number] Inventory Control Clerk: Pablo Pelaez MD #### CP, CBC, HCG #### [address] [place] [address] Inventory Control Clerk: Manuel Mayorga MD MCH (RBC) [Entitic mass] 28.5 pg Normal 25.2-33.5 [facility] Comment on above: Performed By: #### G LYHGB, PHEP, SWCGP, TREP, HIVCMB #### [address] [address] Inventory Control Clerk: Pablo Pelaez MD #### CP, CBC, HCG #### [address] [place] [address] Inventory Control Clerk: Manuel Mayorga MD MCHC (RBC) [Mass/Vol] 32.3 g/dL Normal 28.4-34.8 [facility] Comment on above: Performed By: #### G LYHGB, PHEP, SWCGP, TREP, HIVCMB #### [address] [id number] Inventory Control Clerk: Pablo Pelaez MD #### CP, CBC, HCG #### [address] [place] [address] Inventory Control Clerk: Manuel Mayorga MD MCV (RBC) [Entitic vol] 88.3 fL Normal 82.6-102.9 [facility] Comment on above: Performed By: #### G LYHGB, PHEP, SWCGP, TREP, HIVCMB #### [address] [address] Inventory Control Clerk: Pablo Pelaez MD #### CP, CBC, HCG #### [address] [place], [place] 7136283 Inventory Control Clerk: Manuel Mayorga MD NRBC Automated 0.0 per 100 WBC Normal 0.0 [facility] Comment on above: Performed By: #### G LYHGB, PHEP, SWCGP, TREP, HIVCMB #### [address] [address] Inventory Control Clerk: Pablo Pelaez MD #### CP, CBC, HCG #### [address] [place] [id number] Inventory Control Clerk: Manuel Mayorga MD Platelet mean volume (Bld) [Entitic vol] 9.7 fL Normal 8.1-13.5 [facility] Comment on above: Performed By: #### G LYHGB, PHEP, SWCGP, TREP, HIVCMB #### [address] [address] Inventory Control Clerk: Pablo Pelaez MD #### CP, CBC, HCG #### [address] [place] [id number] Inventory Control Clerk: Manuel Mayorga MD Platelets (Bld) [#/Vol] 295 10*3/uL Normal 138-453 [facility] Comment on above: Performed By: #### G LYHGB, PHEP, SWCGP, TREP, HIVCMB #### [address] [address] Inventory Control Clerk: Pablo Pelaez MD #### CP, CBC, HCG #### [address] [place] [phone] Inventory Control Clerk: Manuel Mayorga MD RBC (Bld) [#/Vol] 4.80 10*6/uL Normal 3.95-5.11 [facility] Comment on above: Performed By: #### G LYHGB, PHEP, SWCGP, TREP, HIVCMB #### [place] [address] [place] [address] Inventory Control Clerk: Pablo Pelaez MD #### CP, CBC, HCG #### [facility] [address] [place] [address] Inventory Control Clerk: Manuel Mayorga MD WBC (Bld) [#/Vol] 5.2 10*3/uL Normal 3.5-11.3 [facility] Comment on above: Performed By: #### G LYHGB, PHEP, SWCGP, TREP, HIVCMB #### [address] [address] Inventory Control Clerk: Pablo Pelaez MD #### CP, CBC, HCG #### [facility] [address] [place] [address] [place] [address] Inventory Control Clerk: Manuel Mayorga MD Comp Metabolic Profon 2023 Bilirubin [Mass/Vol] mg/dL Low 0.3-1.2 [facility] Comment on above: Performed By: #### G LYHGB, PHEP, SWCGP, TREP, HIVCMB #### [place] [address] [place] [address] Inventory Control Clerk: Pablo Pelaez MD #### CP, CBC, HCG #### [facility] [address] [place] [address] [place] [address] Inventory Control Clerk: Manuel Mayorga MD Albumin [Mass/Vol] 4.1 g/dL Normal 3.5-5.2 [facility] Comment on above: Performed By: #### G LYHGB, PHEP, SWCGP, TREP, HIVCMB #### [place] [address] [place] [address] Inventory Control Clerk: Pablo Pelaez MD #### CP, CBC, HCG #### [address] [place], [place] 9491483 Inventory Control Clerk: Manuel Mayorga MD Albumin/Glob Ratio 1.6 Normal 1.0-2.5 [facility] Comment on above: Performed By: #### G LYHGB, PHEP, SWCGP, TREP, HIVCMB #### [address] [address] Inventory Control Clerk: Pablo Pelaez MD #### CP, CBC, HCG #### [address] [place], [place] 2975983 Inventory Control Clerk: Manuel Mayorga MD Alkaline Phos 86 U/L Normal 35-104 [facility] Comment on above: Performed By: #### G LYHGB, PHEP, SWCGP, TREP, HIVCMB #### [address] [address] Inventory Control Clerk: Pablo Pelaez MD #### CP, CBC, HCG #### [address] [place], [place] 2644883 Inventory Control Clerk: Manuel Mayorga MD ALT [Catalytic activity/Vol] 16 U/L Normal 5-33 [facility] Comment on above: Performed By: #### G LYHGB, PHEP, SWCGP, TREP, HIVCMB #### [address] [address] Inventory Control Clerk: Pablo Pelaez MD #### CP, CBC, HCG #### [facility] [address] [place] [address] [place], [place] [id number] Inventory Control Clerk: Manuel Mayorga MD Anion gap [Moles/Vol] 9 mmol/L Normal 9-17 [facility] Comment on above: Performed By: #### G LYHGB, PHEP, SWCGP, TREP, HIVCMB #### [address] [address] Inventory Control Clerk: Pablo Pelaez MD #### CP, CBC, HCG #### [address] [place], [place] 748[address]83 Inventory Control Clerk: Manuel Mayorga MD AST [Catalytic activity/Vol] 11 U/L Normal <32 [facility] Comment on above: Performed By: #### G LYHGB, PHEP, SWCGP, TREP, HIVCMB #### [address] [address] Inventory Control Clerk: Pablo Pelaez MD #### CP, CBC, HCG #### [address] [place] [address] Inventory Control Clerk: Manuel Mayorga MD BUN/CRE Ratio 13 Normal 9-20 [facility] Comment on above: Performed By: #### G LYHGB, PHEP, SWCGP, TREP, HIVCMB #### [address] [address] Inventory Control Clerk: Pablo Pelaez MD #### CP, CBC, HCG #### [address] [place], [place] 6796183 Inventory Control Clerk: Manuel Mayorga MD Calcium [Mass/Vol] 8.9 mg/dL Normal 8.6-10.4 [facility] Comment on above: Performed By: #### G LYHGB, PHEP, SWCGP, TREP, HIVCMB #### [address] [address] Inventory Control Clerk: Pablo Pelaez MD #### CP, CBC, HCG #### [address] [place], [place] 2906583 Inventory Control Clerk: Manuel Mayorga MD Chloride [Moles/Vol] 105 mmol/L Normal 98-107 [facility] Comment on above: Performed By: #### G LYHGB, PHEP, SWCGP, TREP, HIVCMB #### [address] [address] Inventory Control Clerk: Pablo Pelaez MD #### CP, CBC, HCG #### [facility] [address] [place] [address] [place], [place] 1055683 Inventory Control Clerk: Manuel Mayorga MD CO2 [Moles/Vol] 27 mmol/L Normal 20-31 [facility] Comment on above: Performed By: #### G LYHGB, PHEP, SWCGP, TREP, HIVCMB #### [address] [address] Inventory Control Clerk: Pablo Pelaez MD #### CP, CBC, HCG #### [facility] [address] [place] [address] [place], [place] [id number] Inventory Control Clerk: Manuel Mayorga MD Creatinine [Mass/Vol] 0.8 mg/dL Normal 0.5-0.9 [facility] Comment on above: Performed By: #### G LYHGB, PHEP, SWCGP, TREP, HIVCMB #### [address] [address] Inventory Control Clerk: Pablo Pelaez MD #### CP, CBC, HCG #### [address] [place] [address] Inventory Control Clerk: Manuel Mayorga MD GFR/1.73 sq M.predicted among non-blacks MDRD (S/P/Bld) [Vol rate/Area] mL/min/{1.73_m2} Normal >60 [facility] Comment on above: Result Comment: These [...] G LYHGB, PHEP, SWCGP, TREP, HIVCMB #### [address] [address] Inventory Control Clerk: Pablo Pelaez MD #### CP, CBC, HCG #### [facility] [address] [place] [address] [place] [address] Inventory Control Clerk: Manuel Mayorga MD Glucose [Mass/Vol] 113 mg/dL High 70-99 [facility] Comment on above: Performed By: #### G LYHGB, PHEP, SWCGP, TREP, HIVCMB #### [address] [address] Inventory Control Clerk: Pablo Pelaez MD #### CP, CBC, HCG #### [address] [place] [phone] Inventory Control Clerk: Manuel Mayorga MD Potassium [Moles/Vol] 3.9 mmol/L Normal 3.7-5.3 [facility] Comment on above: Performed By: #### G LYHGB, PHEP, SWCGP, TREP, HIVCMB #### [address] [address] Inventory Control Clerk: Pablo Pelaez MD #### CP, CBC, HCG #### [facility] [address] [place] [address] [place] [phone] Inventory Control Clerk: Manuel Mayorga MD Protein [Mass/Vol] 6.6 g/dL Normal 6.4-8.3 [facility] Comment on above: Performed By: #### G LYHGB, PHEP, SWCGP, TREP, HIVCMB #### [place] [address] [place] [address] Inventory Control Clerk: Pablo Pelaez MD #### CP, CBC, HCG #### [facility] [address] [place], [place] 617[address]83 Inventory Control Clerk: Manuel Mayorga MD Sodium [Moles/Vol] 141 mmol/L Normal 135-144 [facility] Comment on above: Performed By: #### G LYHGB, PHEP, SWCGP, TREP, HIVCMB #### [facility] [address] [place] [address] Inventory Control Clerk: Pablo Pelaez MD #### CP, CBC, HCG #### [facility] [address] [place], [place] [id number] Inventory Control Clerk: Manuel Mayorga MD Urea nitrogen [Mass/Vol] 10 mg/dL Normal 6-20 [facility] Comment on above: Performed By: #### G LYHGB, PHEP, SWCGP, TREP, HIVCMB #### [address] [address] Inventory Control Clerk: Pablo Pelaez MD #### CP, CBC, HCG #### [facility] [address] [place] [address] [place], [place] 2953283 Inventory Control Clerk: Manuel Mayorga MD HCG Screen, Bloodon 10-10-19 24 HCG Screen, Blood Negative Normal NEG [facility] Comment on above: Result Comment: Spec imens with hCG levels near the threshold of the test (25 mIU/mL) may give a negative or indeterminate result. In such cases, another test should be performed with a new specimen in 48-72 hours. If early is suspected clinically in this setting, correlation with quantitative serum b-hCG level is suggested. [facility] has confirmed the use of plasma for this test. This has not been cleared or approved by the U.S. Food and Drug Administration. The FDA has determined that such clearance is not necessary. Performed By: #### G LYHGB, PHEP, SWCGP, TREP, HIVCMB #### [place] [address] [place] [address] Inventory Control Clerk: Pablo Pelaez MD #### CP, CBC, HCG #### [address] [place], [place] [id number] Inventory Control Clerk: Manuel Mayorga MD HIV Ag/Abon 10-10-2023 HIV Ag/Ab Non-Reactive Normal NR [facility] Comment on above: Result Comment: No l aboratory evidence of HIV infection. If acute HIV infection is suspected, consider testing for HIV-1 RNA. Performed By: #### G LYHGB, PHEP, SWCGP, TREP, HIVCMB #### [address] [address] Inventory Control Clerk: Pablo Pelaez MD #### CP, CBC, HCG #### [address] [place] [address] Inventory Control Clerk: Manuel Mayorga MD Hemoglobin A1Con 1 Glucose [Mass/Vol] 123 mg/dL Normal [facility] Comment on above: Result Comment: The ADA and AACC recommend providing the estimated average glucose result to permit better patient understanding of their HBA1c result. Performed By: #### G LYHGB, PHEP, SWCGP, TREP, HIVCMB #### [place] [address] [place] [address] Inventory Control Clerk: Pablo Pelaez MD #### CP, CBC, HCG #### [address] [place] [address] Inventory Control Clerk: Manuel Mayorga MD HbA1c (Bld) [Mass fraction] 5.9 % Normal 4.0-6.0 [facility] Comment on above: Performed By: #### G LYHGB, PHEP, SWCGP, TREP, HIVCMB #### [facility] [address] [place] [address] Inventory Control Clerk: Pablo Pelaez MD #### CP, CBC, HCG #### [address] [place], [place] 1964083 Inventory Control Clerk: Manuel Mayorga MD Hepatitis Acute [facility] 10-10 Hep A Ab,IgM Non-Reactive Normal [facility] Comment on above: Performed By: #### G LYHGB, PHEP, SWCGP, TREP, HIVCMB #### [address] [address] Inventory Control Clerk: Pablo Pelaez MD #### CP, CBC, HCG #### [address] [place], [place] 2503483 Inventory Control Clerk: Manuel Mayorga MD Hep B Core Ab,IgM Non-Reactive Normal [facility] Comment on above: Performed By: #### G LYHGB, PHEP, SWCGP, TREP, HIVCMB #### [address] [address] Inventory Control Clerk: Pablo Pelaez MD #### CP, CBC, HCG #### [address] [place], [place] 4800883 Inventory Control Clerk: Manuel Mayorga MD Hep B Surf Ag Non-Reactive Normal [facility] Comment on above: Performed By: #### G LYHGB, PHEP, SWCGP, TREP, HIVCMB #### [address] [address] Inventory Control Clerk: Pablo Pelaez MD #### CP, CBC, HCG #### [address] [place], [place] 6736383 Inventory Control Clerk: Manuel Mayorga MD Hep C Ab Non-Reactive Normal [facility] Comment on above: Result Comment: The hepatitis [...] G LYHGB, PHEP, SWCGP, TREP, HIVCMB #### [place] [address] [place], [place] 2887608 Inventory Control Clerk: Pablo Pelaez MD #### CP, CBC, HCG #### [address] [place] [address] Inventory Control Clerk: Manuel Mayorga MD T.pallidum Ab Screenon 10-10 T.pallidum Ab Screen Non-Reactive Normal NR [facility] Comment on above: Result Comment: T. pallidum antibodies are not detected. There is no serological evidence of infection with T. pallidum (early primary syphilis cannot be excluded). Retest in 2-4 weeks if syphilis is clinically suspect. Performed By: #### G LYHGB, PHEP, SWCGP, TREP, HIVCMB #### [place] [address] [place], [place] 7025208 Inventory Control Clerk: Pablo Pelaez MD #### CP, CBC, HCG #### [address] [place] [address] Inventory Control Clerk: Manuel Mayorga MD Trichomonas/Wet Prepon 10-10 Trichomonas/Wet Prep Specimen Descriptio n .VAGINAL SPECIMEN Direct Exam NO YEAST OBSERVED NO TRICHOMONAS SEEN CLUE CELLS SEEN Report Status FINAL 10/10/2023 Abnormal [facility] Comment on above: Performed By: #### W P #### [address] [place] [address] Inventory Control Clerk: Manuel Mayorga MD Coding Summaryon 11-14-2022 Coding Summary HTMLBase 64 RtslsdfgDHd0uYx+PGhlYW Q+GR0VDBNnG04uzFElwV4Q W3cNBP0FGEEGSXNCYO8KWR 8nsFN2RRulV3CsqhJb XynwdDAoXA93LCj2YZI1mA jeGPoidN8zyRFsH8m3YtYi LZ78gA80XPobCPElLjG7Rq ZpbjsgbWFy A4bvUsNomAJoSej+PHRhYm xlIHdpZHRoPScxMDAlJyBz mJglYJ4gSx0mXWTsJBSmjE xhcHNlOiBj x9vfJDViZNeoCF8grBwfH7 ZhfFD3SZCjl4y4Jg62vLC+ RRXuCPH7dQrfCKbfe746By Sge5ykZEL8 eSWiFYioZBL8U31ei2F4GJ HhZOSkLWR6mGQ3kL2ycQiq ofkbO4GmvIGrBnQ2LVU5cG XybT8gxOuk yqsnpH2xLoz+B18CHT4AUN CPTO7VUiy2T3HuBzkylVT+ WG91RQLuHS25uDYkbQBgt6 inqSz2DcAl OSChEZD7lFjsPRoxj9KdMK YhT70rxWRlv7A7ZNGsmMce hJXrHrFtvLK4hS1dXEozqu uue5axaqqc Icvhn2icqw88hY58I19dTO mcZOYrTZN9ZKKsULSjxKgq lj4xdI8iXd2+XKwxr4shj0 zzyQd9VqEy VNNjreXzxXgfWMJ5b3VxOs 54X1AcwHqno7LhMdk4qs36 sMUfk4Y0xZI7DUgqZIGciF 7wZGzxDsC6 SEPcJtNuxF69kGEmLKdqRq 4rqAojmVkhLE5zKKKxipsa FVLihT4gQEPkbRXnlHfkKY 4wNTBpbjtm h316KhJdXLM2QGJrqWGfQ6 UpwW3nBpBpZEPrKQYvI1Ej iRNvMFkdZ224AKkqLnC8RR AlmsDpF1Pz TDSmoFqtDtE3n1I5Za7Id0 FwjuceXGB8LFetLLBtCeLr JvSgWiI6H4ZnBcc8KTNzbN hbOI2fN5Pl MDJhhcsafpjlnNA8APYpCF ZgrP82lQMcXVnmZb8jo5E1 e426UUFmGDQcyN59Oe5tbZ ogMTBwdCBU vV2byqlec6ztmhipMwIxEK OfRGo9QIa6VUDckPsyIbZs ZNR4TxD7NVC6kRIqxN3oeH bvzqfiuD6c Oyc+S06wjJ8eVNX9CNX4wn utMCDrruTqBZ59FQ79E1Pl PjwvdGFibGU+PGRpdiBzdH buAH3qUcPp i0mqk3AuQQpfF0RuEHAkDY oyOdl2JNPtQYV9gUO5pV5j AUOoGMmfr6X6dMQ0M6Lxsb Fsof1uc7mh XGMtWOyiB35usTQiv3F6EW ExtVY4DOTciNveAvSnqX77 Oyc+HYGugGklj6BvSvfdq7 hdv6tauAh3 UpOsQDDaxnBteChcWCW8d3 AcRw37X74jBEftJJXpAKXd NSEcSHKbqTlajb7hdD1mVv 8+PGNvbCB3 rPP5hI4ySFTbRtD0WXbsH9 27BtDxtSVgWihqo2ysd9hd iUi5RmVrBHWrmnRlzDhqCO H7k2WiIa29 K70qZYdrEZEmOGCeEXVoYQ TjcUjiau3tdA5uQf3+PC9j x8zlji21vO58eJC+PHRkIH V2fAtlXVvc SFFbhF7lMArqFjN5KBOqLq JucH90fBHrYTgiPq4grIrs eZerRR8fCXWyjnbgb193Vm Hfk4voEFOa uKAoILcuEOH8C34ft7Y7GF IpNAMoLLW0wRW3uC6ayCwk bjogbGVmdDsgdmVydGljYW amNRxwQ061 IHRvcDsnPlBhdGllbnQgTm HaTTc0Q6ReCwk6HIOfaEgo TA3dfEBuTHjpLb8efMikzQ kgHG5bIXKf babzm520IkJgk8whKIIxtX PeMXadPMJ4T10ks6N5XTUz GVKeZMA0wZK1pI5biMdlxg ogbGVmdDsg nvTzlNxzZCevJGgrP774GF RvcDsnPkJpcnRoIERhdGU6 FH03RS97jFLrt0I4yYV9G4 BhZGRpbmct jfldfEI9YGPgHDJegL27Xh 9puWuiKj3bCOJpYAW2WXIg xVZxR0DxoH9bUxPkXVTbXN XrL5WaoRUt FEbsE639KGfiGsD7AWAyhy CnL9SiKDSkbBoaXxW1i1P3 Ky3FB7K8OP04JW76gINmn4 Q6tOK2G8Rz JKCfyhqsgxmprIO2OPXcJA QhsB58Aw3ejOctOb0hRAAs OHQ1ZBVrtSFqR8PooD3xQy AjMDAwMDAw H1BykDPoKClbM491NIyvGj F9RCNuxjToW5DiOLYbbGfq KdV4r1O5Hf4KBHp7EG91SV 54fPEvu1R1 xHB7Q1MoGZEcftadyvstyS M4WYLhFYTubA31Ha3aiOap Xh3vWLFrQHM1QVUquUHjF7 AfsO2pLlKk ZZXqIRFcF6IimMXjBXjjN3 90JStbFxS9TQLwgaKtL2Vj YXSbeIkqZjA5k7J1Ml1LIQ NwMC96ZBW6 fWT3SI63GT61U5RxHjdwkC FibGU+PHRhYmxlIHdpZHRo RZjrRFCyVpSmzVvpUG8bJc 9yZGVyLWNv wIbzfTWcOcLzx7pcTDWrBW bdTB4asYivB5TlqDW9WSYv z9c2Ob53X35fM1DfvWR+PG IsvKJ8uIW4 lD0yBmUaHbY5IMmfV842Pi OppHEiQrexk9doc4wkhXo1 GpP7IQMdokEnvNjnHZF7g9 KjUp58Q47p IHdpZHRoPSIxNSUiIHZhbG nken6ulC0wFh0+PGNvbCB3 uTU6kK4uMcJsIpT7GYqyY5 49InRvcCIv Xliyp0cyy2xgzZt7FgYkJO JsstMfnDupKOO8w1YzRe31 O2FdaNenj9ItJkr4yq23dX Ugl7H3uIJ2 Z3YtGHCtikwaxPVmrWdvMM 8zGIVrreszZSBycL4xJUVe U8s4PzUrAsS9DYonQ3Sopl P8NBAvnXLr ZUssBGH2B40bn3K0KXTtVO RlKGZ2xMN2cP3mqMraopvy bGVmdDsgdmVydGljYWwtYW dxC589ARCm tPluGSAeiS9bLUWibBRomC ouKJ7sEJEcnulaIqaCPmMV TB5fBPPBY0dAEAVZXY22KN 54wWLlx1T2 zQG0F4JfOBAaymlrrhnmpD R6WRXcYVTgmH35tXVgGGxi Mu1uk5H1l146ITPpBOJrrD 75Gr2qrVhy BRWwrYRGoR9heeusq4umks brFwDaHZWqVTa2ZWv7ANDp wTrkIcTtFTW1BpE5NKL4iZ HsvH3jdXjw cpbedQ8cRmw+MDcvMTIvMT t6CBxfiQW+HTBbURH3hTzy EAwtPXObjM3zMAKuG5f4Va HrEmN3GEtf I7BxZKXfzyrlEn99lN7dMo QhQaJ2HJhuJ8MgvaC6QLUb wFYzUPtxCNP2L59pe3P8FX MwMDAwMDA7 uFQ2tM3ohLnsivggcILhvO npbzTwiYajFIeyYVakJ803 JXBumRsyVrN1FIqwFCZuBN 78YY14oQIq w0D2jNZ1H7CxLZQmxnpedm tpsIJ5ZILaOMJkvV46nAFx ZKinJd3zl3H1s322PLAdLQ XgmK66Iv2i xIqlSCMdkHTZnM3nujwrz1 tlrbzcHlYfHTYaUJn9GDk9 XQRqcDdjXcHkBLR0JiQ2XF L0kTUplU1n lCsjuaxohI0nPil+RkVNQU eECR08RQ01qUNzg3P2tZK6 D1BkTUFkflosvwkdxQY6LF MfOBIjoE67 uBNsVNyfHu7ad6B9d009ZE ZrSFSrmI50Eu9jgRtzGKWa sIXTzZ7yoktkq8lfnfiaXt AwMDAwMDt0 EBt2VQDrkRzmAzPbJHO5Sk Z7MPW0uJPqjT2mnUbyplsi tB6aCxm+M3E0Q6MfUbyhpV I+CH18NGHb YW45dEZuqHUul2ocaZb8Md KxWFZhJKE7uQwtMYsno3Yc LRXjC41iuBEzc6Y7EWQklZ xhcHNlOyBl jXB6pR5xRLcqhhxkj5itwl ldElfel4nsrw47bN58W11p IHdpZHRoPSIzMCUiIHZhbG zikb8ajF4j Ii8+SIMucSE8gEL4yT0xZw LzErI1FChcK867ZfWhlDXv Qozfm3azc1yvtEl2DsWcHX IgdmFsaWdu GBK9r0PwMd20J38sIQdgYP GgMWUuZZFxWVGguWipyv6r hT1vJi4+MK4kp1sikg66wZ 48dHI+PHRk EDP5yAauHCykNECfaU6pQM tbKdW1NMVxPcZfhD35rKPo RYohYp5nqBsjrPmrLX1rJL Vvprflf577 FaHeo2nmNALvrBFpVRszAT R7V01uh0R2KZVfCVKnTSB5 aCE1tP8roLppwccwyXYtsF sgdmVydGlj BUoiYPumM251TDDmxNhwAk AklIKmL3woglBWJJ7oOezs dGQ+LHKxRDU8xFuvGSkqPW DkiS7tSIIl J8r1MyTaAcB9ZSsgE1Dqyu Z8TIXkiRPdZJKpnJIWiP2v lmdjl1vmtyvfRmSbQXFjPF e1BZe7JJCh nAouCvItVQL4JzU4NNG1bE CddD8ftGtyqcxhcW7zDrf+ RklOOjwvdGQ+MFDrDDH5hN xlPSdwYWRk jZ7bOZIjL6c1FnHvHaK9MQ lkM0NmsbN3AITchNFwRXQw fDQBlI8fsdxsq3colqdnZf AwMDAwMDt0 YTx2LIGaaJnzOoWoZUP2Mb Z3EZM3vPKreH1txFyachwh tM5hFsf+TVJOOjwvdGQ+PH XeBMG1aMqo HLhgRWKauV0eIEQmJ8r6Lt GbItE0IPorE0HocmC7WFNa rJRbWPVwuTETyV8izvdvw2 xvcjogIzAw EOFxBMd0YXv9KRWxwTdtRp GrOBE1EaY8WRP8tWBuhA7a zUxwygfedG7hGov+UGF5ZX R2AX29XL17 T4NaPvshcHEblWD+PHRhYm xlIHdpZHRoPScxMDAlJyBz yTdiZP2uZd0mZXAmLEZtcP xhcHNlOiBj b2x (more content not included)... Normal [facility] Provider Orderson 11-14-2022 Provider Orders [id number]#1.0 0OTGTIFF Normal [facility] .Auto Diff 1on 11-13-2022 Auto [place] % 7 % Normal 12 [facility] Comment on above: Performed By: #### 6 987019, 2267409, 98452935, 3203254750, 1777913879, 9223746, 6651013111 #### [facility] (DEFAULT) [address] [place] [address] 51253 Baso Abs# 0.1 x10 Normal 0.0-0.2 [facility] Comment on above: Performed By: #### 6 168208, 9020599, 16013870, 0717217048, 0706877686, 1345055, 3390384000 #### [facility] (DEFAULT) [address] [place] [address] 42510 Basophils/100 WBC (Bld) 0.8 % Normal 0.2-2.0 [facility] Comment on above: Performed By: #### 6 267538, 8295369, 71812776, 7678876998, 4393997120, 2093825, 2274126644 #### [facility] (DEFAULT) [address] [place] [address] 17300 Eos Abs# 0.1 x10 Normal 0.0-0.4 [facility] Comment on above: Performed By: #### 6 767069, 6792954, 91396219, 5547469680, 3237590858, 1441896, 6576504619 #### [facility] (DEFAULT) [address] [place] [address] 78292 Eosinophils/100 WBC (Bld) 2.0 % Normal 0.9-4.0 [facility] Comment on above: Performed By: #### 6 992864, 2099525, 72182612, 0096226648, 0815258533, 6687117, 7046120342 #### [facility] (DEFAULT) [address] [place] [address] 09289 Lymph Abs# 1.5 x10 Normal 1.3-2.9 [facility] Comment on above: Performed By: #### 6 151614, 2440365, 03382112, 9078741697, 2277067437, 6317864, 5768156439 #### [facility] (DEFAULT) [address] [place] [address] Lymphocytes/100 WBC (Bld) 21 % Normal 14-48 [facility] Comment on above: Performed By: #### 6 235718, 3327934, 84375527, 9792456925, 5455090037, 4363346, 4298998965 #### [facility] (DEFAULT) [address] [place] [address] 31829 [place] Abs# 0.5 x10 Normal 0.0-0.8 [facility] Comment on above: Performed By: #### 6 039646, 6483431, 43946964, 0174121747, 2367516888, 6127700, 8169411097 #### [facility] (DEFAULT) [address] [place] [address] Neut Abs# 4.8 x10 Normal 1.5-9.2 [facility] Comment on above: Performed By: #### 6 197091, 3725166, 22853729, 7788194657, 4036111009, 5441402, 4900404570 #### [facility] (DEFAULT) [address] [place] [address] Neutrophils/100 WBC (Bld) 69 % Normal 44-88 [facility] Comment on above: Performed By: #### 6 466447, 2525024, 73743499, 4181053235, 2429138832, 2618865, 6604950987 #### [facility] (DEFAULT) [address] [place] [address] 39403 CBC w/ Auto Diffon 3 Erythrocyte distribution width (RBC) [Ratio] 14.9 % Normal 11.5-15.0 [facility] Comment on above: Performed By: #### 6 664833, 6639151, 68923322, 3232872365, 8870704685, 1862732, 4125505153 #### [facility] (DEFAULT) [address] [place] [address] Hematocrit (Bld) [Volume fraction] 35.5 % Normal 33.7-40.4 [facility] Comment on above: Performed By: #### 6 497461, 5131753, 79115135, 4335046374, 8719686290, 7633817, 4243054260 #### [facility] (DEFAULT) [address] [place] [address] Hemoglobin (Bld) [Mass/Vol] 12.1 g/dL Normal 11.3-15.9 [facility] Comment on above: Performed By: #### 6 317631, 1434278, 51894711, 3033523078, 5647678358, 7550619, 3419646593 #### [facility] (DEFAULT) [address] [place] [address] Man Diff? Auto Invalid Interpretation Code [facility] Comment on above: Performed By: #### 6 807791, 2213359, 94026806, 3695719510, 4799191977, 8538110, 9084841180 #### [facility] (DEFAULT) [address] [place] [address] MCH (RBC) [Entitic mass] 29 pg Normal 24-34 [facility] Comment on above: Performed By: #### 6 712042, 8805129, 23372347, 8575306701, 1287736193, 3781140, 1317103196 #### [facility] (DEFAULT) [address] [place] [address] MCHC (RBC) [Mass/Vol] 34 g/dL Normal 26-37 [facility] Comment on above: Performed By: #### 6 760651, 6522009, 53812434, 7960159278, 2952104980, 8108637, 3083001438 #### [facility] (DEFAULT) [address] [place] [address] 37230 MCV (RBC) [Entitic vol] 84 fL Normal 81-100 [facility] Comment on above: Performed By: #### 6 833901, 7300042, 71501066, 4467286360, 6740302476, 6172567, 8668855824 #### [facility] (DEFAULT) [address] [place] [address] Platelet 265 x10 Normal 138-427 [facility] Comment on above: Performed By: #### 6 618943, 4506885, 59927640, 8247896946, 9534426008, 8667555, 9092300472 #### [facility] (DEFAULT) [address] [place] [address] Platelet mean volume (Bld) [Entitic vol] 6.9 fL Normal 6.3-10.2 [facility] Comment on above: Performed By: #### 6 280514, 1319966, 16581644, 8420807063, 1252475951, 0885721, 2362935994 #### [facility] (DEFAULT) [address] [place] [address] RBC 4.22 x10 Normal 3.70-5.30 [facility] Comment on above: Performed By: #### 6 492010, 6032852, 79225198, 5716028961, 7181880350, 8364219, 6556057092 #### [facility] (DEFAULT) [address] [place] [address] WBC 7.0 x10 Normal 3.5-10.5 [facility] Comment on above: Performed By: #### 6 970771, 7179929, 12622506, 9283956792, 4703000429, 4149171, 2431143658 #### [facility] (DEFAULT) [address] [place] [address] CMP Standardon 11-13-2022 eGFR Non AA >60 Invalid Interpretation Code [facility] Comment on above: Performed By: #### 6 911972, 0275254, 28010746, 1189914717, 4506791153, 3986138, 1005345248 #### [facility] (DEFAULT) [address] [place] [address] eGFR AA >60 Invalid Interpretation Code [facility] Comment on above: Performed By: #### 6 470234, 5313416, 06799869, 9260367323, 1179957266, 2815988, 5638720232 #### [facility] (DEFAULT) [address] [place] [address] Albumin [Mass/Vol] 4.0 g/dL Normal 3.5-5.0 [facility] Comment on above: Performed By: #### 6 780270, 7931691, 81796063, 3715040683, 2280675657, 9877078, 8630328616 #### [facility] (DEFAULT) [address] [place] [address] Alk Phos 61 IU/L Normal 32-91 [facility] Comment on above: Performed By: #### 6 852124, 6803220, 91000231, 6257761889, 6454550224, 6303708, 6085560593 #### [facility] (DEFAULT) [address] [place] [address] ALT [Catalytic activity/Vol] 18.0 U/L Normal 14.0-54.0 [facility] Comment on above: Performed By: #### 6 097961, 9736887, 34400801, 3455905091, 2572127135, 7303331, 8695922900 #### [facility] (DEFAULT) [address] [place] [address] 27032 AST [Catalytic activity/Vol] 19 U/L Normal 15-41 [facility] Comment on above: Performed By: #### 6 782786, 6447386, 28509133, 5774643358, 1892329730, 7050375, 3139556498 #### [facility] (DEFAULT) [address] [place] [address] 70007 Bili Total 0.6 mg/dL Normal 0.3-1.2 [facility] Comment on above: Performed By: #### 6 911134, 6045887, 00153719, 5736281697, 1641757522, 2540373, 8932675449 #### [facility] (DEFAULT) [address] [place] [address] 54170 Calcium [Mass/Vol] 8.5 mg/dL Low 8.9-10.3 [facility] Comment on above: Performed By: #### 6 531149, 7556958, 93305893, 6579298683, 2557587443, 2447030, 9100365990 #### [facility] (DEFAULT) [address] [place] [address] 40169 Chloride [Moles/Vol] 107 mmol/L Normal 101-111 [facility] Comment on above: Performed By: #### 6 620410, 7553422, 07216927, 0477536965, 0516585710, 7774521, 0597477123 #### [facility] (DEFAULT) [address] [place] [address] 70208 CO2 [Moles/Vol] 27 mmol/L Normal 21-32 [facility] Comment on above: Performed By: #### 6 097448, 6763693, 73752605, 8930692629, 8615579462, 8299794, 0706321488 #### [facility] (DEFAULT) [address] [place] [address] 02854 Creatinine [Mass/Vol] 0.83 mg/dL Normal 0.60-1.30 [facility] Comment on above: Performed By: #### 6 460366, 8831284, 16186710, 5861217445, 3458630704, 1455089, 0446744820 #### [facility] (DEFAULT) [address] [place] [address] 01844 Glucose [Mass/Vol] 155.0 mg/dL High 74.0-118.0 [facility] Comment on above: Performed By: #### 6 442715, 4828088, 22560360, 9858664687, 1547829199, 0228263, 1540305108 #### [facility] (DEFAULT) [address] [place] [address] 13712 Potassium [Moles/Vol] 3.8 mmol/L Normal 3.6-5.1 [facility] Comment on above: Performed By: #### 6 418516, 7904974, 15878994, 7112550177, 4303057568, 5624345, 6236820454 #### [facility] (DEFAULT) [address] [place] [address] 43925 Protein [Mass/Vol] 6.6 g/dL Normal 6.5-8.1 [facility] Comment on above: Performed By: #### 6 633691, 5860766, 20468185, 5016595742, 0256253182, 4721562, 6150985931 #### [facility] (DEFAULT) [address] [place] [address] 56516 Sodium [Moles/Vol] 137.0 mmol/L Normal 136.0-144.0 [facility] Comment on above: Performed By: #### 6 994072, 2645583, 04364754, 9559436835, 6566657385, 8584372, 1312580448 #### [facility] (DEFAULT) [address] [place] [address] 53465 Urea nitrogen [Mass/Vol] 10 mg/dL Normal 8-26 [facility] Comment on above: Performed By: #### 6 177915, 7250670, 63390546, 4873180620, 2049459204, 4126910, 0200854864 #### [facility] (DEFAULT) [address] [place] [address] 55694 Albumin/Globulin [Mass ratio] 1.5 {ratio} Normal 1.4-2.6 [facility] Comment on above: Performed By: #### 6 071489, 2353719, 90946981, 5033716362, 7138074883, 3056383, 7026356781 #### [facility] (DEFAULT) [address] [place] [address] 40812 Anion gap [Moles/Vol] 6.8 mmol/L Normal 5.0-19.0 [facility] Comment on above: Performed By: #### 6 201770, 9319191, 40498123, 2825674241, 6502563305, 6637737, 7325980792 #### [facility] (DEFAULT) [address] [place] [address] 65777 Globulin (S) [Mass/Vol] 2.6 g/dL Normal 1.5-4.3 [facility] Comment on above: Performed By: #### 6 381075, 0587798, 10673503, 1273299847, 4836581824, 4002743, 7009421193 #### [facility] (DEFAULT) [address] [place] [address] 55922 Osmolality 276 mOsm/L Invalid Interpretation Code [facility] Comment on above: Performed By: #### 6 164015, 6173733, 91868359, 3405577566, 7678539006, 2980508, 6140996370 #### [facility] (DEFAULT) [address] [place] [address] 96842 Urea nitrogen/Creatinine [Mass ratio] 12.0 mg/mg Normal 4.6-16.2 [facility] Comment on above: Performed By: #### 6 209980, 2429110, 03800401, 8025250522, 5168748645, 9070329, 9912342131 #### [facility] (DEFAULT) [address] [place] [address] 62466 Free T4on 11-13-2022 Free T4 [Mass/Vol] 0.71 ng/dL Normal 0.61-1.12 [facility] Comment on above: Performed By: #### 6 517455, 5403799, 56522265, 9335839620, 6704148914, 4968098, 3776165780 #### [facility] (DEFAULT) [address] [place] [address] 53122 HgbA1c Standardon 11-13-2022 .Hb 13.7 Invalid Interpretation Code [facility] Comment on above: Performed By: #### 6 012144, 7914605, 13836700, 7047506778, 8845375660, 6790572, 2314972165 #### [facility] (DEFAULT) [address] [place] [address] 03700 .Hgb A1c 0.72 g/dL Invalid Interpretation Code [facility] Comment on above: Performed By: #### 6 363836, 2729229, 37947703, 1629819707, 2455484626, 6822376, 5265449922 #### [facility] (DEFAULT) [address] [place] [address] Glucose [Mass/Vol] 151 mg/dL Invalid Interpretation Code [facility] Comment on above: Performed By: #### 6 191306, 8721303, 65256262, 3427463172, 8692345318, 0281221, 1318162118 #### [facility] (DEFAULT) [address] [place] [address] HbA1c (Bld) [Mass fraction] 6.9 % High 4.6-6.2 [facility] Comment on above: Performed By: #### 6 750811, 4832588, 68895883, 4253833294, 1582166816, 6819848, 9721600704 #### [facility] (DEFAULT) [address] [place] [address] Lipid Panel Standardon 11-13 Cholesterol [Mass/Vol] 175.0 mg/dL Normal 66.0-200.0 [facility] Comment on above: Performed By: #### 6 231306, 9350186, 98320248, 7440967881, 4372153966, 5405434, 4019539319 #### [facility] (DEFAULT) [address] [place] [address] 87978 Cholesterol in HDL [Mass/Vol] 34 mg/dL Low 40-71 [facility] Comment on above: Performed By: #### 6 250836, 6735986, 92047656, 9916705688, 7549677166, 9981760, 0165947753 #### [facility] (DEFAULT) [address] [place] [address] 61466 Triglyceride [Mass/Vol] 131.0 mg/dL Normal 0.0-150.0 [facility] Comment on above: Performed By: #### 6 742010, 4969089, 44129659, 2717601675, 1405166036, 5296929, 2155652501 #### [facility] (DEFAULT) [address] [place] [address] Cholesterol in LDL [Mass/Vol] 115 mg/dL High 1-100 [facility] Comment on above: Performed By: #### 6 889127, 3046529, 76092479, 9698662864, 8763687772, 3845494, 0805905227 #### [facility] (DEFAULT) [address] [place] [address] 77160 Cholesterol.total/Carol Ann sterol in HDL [Mass ratio] 5.1 {ratio} High 0.0-4.5 [facility] Comment on above: Performed By: #### 6 272409, 5820034, 84415347, 7943471607, 0380203540, 4876027, 8061559156 #### [facility] (DEFAULT) [address] [place] [address] VLDL. 26 mg/dL Normal 5-40 [facility] Comment on above: Performed By: #### 6 736795, 5008480, 95819589, 3658086526, 8937208250, 5058557, 9949166396 #### [facility] (DEFAULT) [address] [place] [address] 25491 TSHon 11-13-2022 TSH Qn 2.33 m[IU]/L Normal 0.45-5.33 [facility] Comment on above: Performed By: #### 6 522939, 4738130, 27931696, 6623836111, 4495723593, 5682593, 2128649867 #### [facility] (DEFAULT) [address] [place] [address] 36122 Initial Visit (Otolaryngolog y)on 06-05-2022 Initial Visit [...] created us (more content not included)... Normal [employer] Tobacco Screening.on Adult depression screening assessment No [facility]-Otolaryn g ology-[facility] Work Phone: Fall risk assessment a) No falls within the last year [facility]-Otolaryng ology-[facility] an Work Phone: [phone] Tobacco use status CPHS a) Yes M G-Otolaryng ology-[facility] an Work Phone: [phone] Tobacco Screening. Yes MG-[facility] laryng ology-[facility] an Work Phone: COVID-19, PCRon 04-25-2021 SARS-CoV-2 (COVID-19) RNA FALLON+probe Ql (Unsp spec) Not detected Normal Not Detect [facility] Comment on above: Result Comment: Test ing was performed using [employer] SARS-CoV-2 Assay. Negative results do not preclude [...] oropharyngeal and mid-turbinate specimens. Patient Fact Sheet: https://www.fda.gov/media/731771/download Provider Fact Sheet: https://www.fda.gov/media/652445/download FDA Specimen Types Link: https://www.fda.gov/medical-devices/ vyhxojgphkv-xzyap-60-kzp-pbqhdpa-gqpiodr/uhqx-jylopwv-rbiy-cov -2 Methodology: RT-PCR Performed By: #### C OVB #### [facility] [address] [place] [id number] Coding Summary.on 08-31-2020 Coding Summary. CODING DATE: 08/31/2020 FINAL [facility] STATUS: Home (Routine DC) PAYOR: Medicaid [...] F17.210 Nicotine dependence, cigarettes, uncomplicated Z79.899 Other sumatra opener (current) drug therapy PYMT PROC [facility] STAT DESCRIPTION DOCTOR NAME DATE NOTE: The code number assigned matches the documented diagnosis and / or procedure in the patient's chart. However, the narrative phrase printed from the coding software may appear abbreviated, or result in slightly different terminology. Revised Coded By: Miranda Gan Revised Date Saved: 08/31/2020 12:26 pm Normal [place] Discharge Instructionson Discharge Instructions [id number]. 00CD:127 Normal [facility] Documentationon 08-24-20 20 EMS Documentation [id number] 0CD:127 Normal [facility] B hCG Qualon 08-23-2020 Beta hCG Ql Negative Normal [facility] Comment on above: Performed By: #### 1 [id number], [id number], [id number], [id number], [id number], [id number], [id number], [id number], 1412275, 7555787, 7368087, 7483798, [id number] ####[facility] [address] [place] [address] [facility] 08-23-2020 Beta hydroxybutyrate [Moles/Vol] 1.04 mmol/L High 0.02-0.27 [facility] Comment on above: Performed By: #### 1 [id number], [id number], 0106045, [id number], [id number], 8863032, [id number], [id number], 1273135, 3376682, 1386034, [id number], [id number] ####[facility] [address] [place] [address] CT Abdomen/Pelvis w/ Contras ton 08-23-2020 CT [...] Pedro Erwin MD Transcribed by: MO Technologist: ABBY Technical Comments GFR (mL/min/1/73m2) >60 Contrast: Isovue 300 Contrast amount in ml's: 100 Normal [facility] ED Clinical Summaryon 2019 ED Clinical Summary [place] [id number] ED Clinical Summary Person Information Name: MARY PANIAGUA/[place] Age: 35 Years : 1985 Sex: Female Language: [place] PCP: MANNIE LEVY CNP Marital Status: Single Visit Id: Visit Reason: Vomiting; Nausea; Epigastric Pain; EPIGASTRIC PAIN, INTRACTABLE UPPER ABOMINAL PAIN Speciality: Acuity: 3 Enc Type: Observation Med Service: Medical Arrival: 08/22/2020 20:19:32 Discharge: LOS: 000 14:55 Checkin: 08/22/2020 20:19:32 Checkout: 08/23/2020 11:14:05 Dispo Type: Admitted as IP to this [facility] EVENTS: Event Name Event Status Request [...] 11:06:57 Patient Care Request 08/23/2020 11:06:57 ADDRESS: [address] [place] [id number] [facility] NOTES: MEDICAL INFORMATION: Prescriptions Given: PATIENT EDUCATION INFORMATION: Instructions: Follow up: DIAGNOSIS: 1:Epigastric abdominal pain; 2:IBS (irritable bowel syndrome); 3:Anxiety Normal [facility] ED Note-Physicianon --20 20 ED Note-Physician Basic [...] vomiting. She states that she sees a automatic glove former in [place]. She has not seen this automatic glove former for quite some time. She states that [...] Appropriate mood & affect. Integumentary: Warm, Dry, [place] Medical Decision Making I rechecked the patient shortly after 12:30 AM. Still complains of the epigastric discomfort. She states she has had this frequently in the past and has been seen by a automatic glove former in [facility]. They believe that it does relate to [...] 2 mg/mL Inj, 2 mg, IV Push [id number] [F], 1000 mL, IV promethazine 25 mg/mL Inj, 12.5 mg, IV Push Disposition Plan Patient Discharge Condition Unchanged Discharge Disposition Admit to observation Discharge Prescription List Prescriptions No active prescription medications Follow-up No qualifying data available Attestation Patient signed out to the attending emergency room physician at 2325 Patient was treated and evaluated by the Physician [employer]. The attending physician was in the Emergency [...] (08/22/20:24:00) Lymph Auto: 7 % Low (08/22/20:24:00) [place] Auto: 4.8 % (08/22/20:24:00) Eos Auto: 0.6 % (08/22/20:24:00) Basophil Auto: 0.9 % (08/22/20:24:00) Neutro Absolute: 12.5 E9/L High (08/22/20:24:00) Lymph Absolute: 1 E9/L (08/22/20:24:00) [place] Absolute: 0.7 E9/L (08/22/20:24:00) Eos Absolute: 0.1 E9/L (08/22/20:24:00) Basophil Absolute: 0.1 E9/L (08/22/20::00) Sed Rate Automated: 6 mm/hr (08/22/20:24:00) Glucose Lvl: 208 mg/dL High (08/22/20:24:00) BUN: 11 mg/dL (08/22/20:24:00) Creatinine: 0.8 mg/dL (08/22/20:24:00) eGFR: >60 (08/22/20:24:00) eGFR AA: >60 (08/22/20::00) BUN/Creat Ratio: 14 (08/22/20::00) Sodium Lvl: 136 mmol/L (08/22/20:24:00) Potassium Lvl: 3.4 mmol/L Low (08/22/20::00) Chloride: 102 mmol/L (08/22/20:24:00) CO2: 22 mmol/L (08/22/20:24:00) AGAP: 15 mEq/L (08/22/20:24:00) Calcium Lvl: 9.4 mg/dL (08/22/20:24:00) Alk Phos: 75 Int._Unit/L (08/22/20:24:00) ALT: 14 Int._Unit/L (08/22/20:24:00) AST: 13 Int._Unit/L (08/22/20:24:00) Total Protein: 7.7 gm/dL (08/22/20 21:24:00) Albumin Lvl: 4.8 gm/dL (08/22/20 21:24:00) Globulin: 2.9 gm/dL (08/22/20 21:24:00) A/G Ratio: 1.7 (08/22/20 21:24:00) Bili Total: 1 mg/dL (08/22/20 21:24:00) Bili Direct: 0.1 mg/dL (08/22/20 21:24:00) Bili Indirect: 0.9 mg/dL (08/22/20 21:24:00) Lipase Lvl: 25 unit/L (08/22/20 21:24:00) Lactic Acid Lvl: 1.1 mmol/L (08/22/20 21:24:00) CRP: 0.6 mg/dL (08/22/20 21:24:00) Beta hCG Ql: NEGATIVE1 (08/22/20 21:24:00) Diagnostic Results No qualifying data available. Normal [facility] Comment on above: Result Comment: Elec tronically Signed By: Pilo Castillo PA-C\.br\Date and Time Signed: 08/22/20 23:21 EST\.br\Electronically Co-Signed By: Blaine Lei MD\.br\Date and Time Co-Signed: 08/23/20 06:27 EST ED Patient Education Noteon 08-23-2020 ED Patient Education Note Normal [facility] ED Patient Summaryon 020 ED Patient Summary [place] [address] Patient Discharge Instructions Person Information Name: MARY PANIAGUA Age: 35 Years Arrival Date: 08/22/2020 20:19:32 Discharge Diagnosis: 1:Epigastric abdominal pain; 2:IBS (irritable bowel syndrome); 3:Anxiety Primary Care Physician: MANNIE LEVY CNP Provider Information Primary Provider: Blaine Lei MD Advanced Hand Plate Stacker:Pilo Castillo PA-C The exam and treatment you received in the Emergency Department were for an urgent problem and are not intended as complete care. It is important that you follow up with a doctor, nurse practitioner, or physician?s retail event assistant for ongoing care. If your symptoms become worse or you do not improve as expected and you are unable to reach your usual health care provider, you should return to the Emergency Department. We are available 24 hours a day. CORONA PANIAGUAHEL has been given the following list of [...] opioids can be used to help relieve preazvyh-ta-ohjttp pain and are often prescribed following a [...] be struggling with addiction, tell your health care aide and ask for guidance or call [facility] National Helpline at 0-721-180-SUBR. v Source: US Department of Health and Human Services/Center for Disease Control & Prevention [facility] Medications Given: Medication Dose Route [...] to serve you. Thank you for choosing [facility] Patient Education Materials: JAY Nunez RACHEL , have received the following patient education materials/instructions and have verbalized understanding: Patient Education Materials: Follow-up Instructions: Patient Signature Date Clinician/Nurse Signature ___ Date 08/23/2020 11:14:07 Normal [facility] HoxX4blo 08-23-2020 HbA1c (Bld) [Mass fraction] 6.4 % High <=5.9 [facility] Comment on above: Performed By: #### 1 [id number], 2356608, 7781172, 8527895, 872257076, 3701966, 751995618, 72951703, 2889183, 1792070, 5115218, 3387316, 68768730 ####[facility] [address] [place] [address] History and Physicalon 08-23 History and Physical [...] RBC: 4.9 E12/L (08/22/20:24:00) Hgb: 13.9 gm/dL (08/22/20 21:24:00) Hct: 42.9 % (08/22/20 21:24:00) MCV: 87.1 fL (08/22/20:24:00) MCH: 28.2 pg (08/22/20:24:00) MCHC: 32.4 gm/dL (08/22/20:24:00) RDW: 14.1 % (08/22/20:24:00) Platelet: 357 E9/L (08/22/20 21:24:00) MPV: 7.4 fL (08/22/20:24:00) Neutro Auto: 86.7 % High (08/22/20:24:00) Lymph Auto: 7 % Low (08/22/20:24:00) [place] Auto: 4.8 % (08/22/20:24:00) Eos Auto: 0.6 % (08/22/20:24:00) Basophil Auto: 0.9 % (08/22/20:24:00) Neutro Absolute: 12.5 E9/L High (08/22/20:24:00) Lymph Absolute: 1 E9/L (08/22/20:24:00) [place] Absolute: 0.7 E9/L (08/22/20::00) Eos Absolute: 0.1 E9/L (08/22/20::00) Basophil Absolute: 0.1 E9/L (08/22/20:24:00) Sed Rate Automated: 6 mm/hr (08/22/20::00) Glucose Lvl: 208 mg/dL High (08/22/20:24:00) BUN: 11 mg/dL (08/22/20:24:00) Creatinine: 0.8 mg/dL (08/22/20::00) eGFR: >60 (08/22/20:24:00) eGFR AA: >60 (08/22/20::00) BUN/Creat Ratio: 14 (08/22/20::00) Sodium Lvl: 136 mmol/L (08/22/20:24:00) Potassium Lvl: 3.4 mmol/L Low (08/22/20:24:00) Chloride: 102 mmol/L (08/22/20:24:00) CO2: 22 mmol/L (08/22/20::00) AGAP: 15 mEq/L (08/22/20:24:00) Calcium Lvl: 9.4 mg/dL (08/22/20:24:00) Alk Phos: 75 Int._Unit/L (08/22/20:24:00) ALT: 14 Int._Unit/L (08/22/20:24:00) AST: 13 Int._Unit/L (08/22/20:24:00) Total Protein: 7.7 gm/dL (08/22/20:24:00) Albumin Lvl: 4.8 gm/dL (08/22/20:24:00) Globulin: 2.9 gm/dL (08/22/20:24:00) A/G Ratio: 1.7 (08/22/20::00) Bili Total: 1 mg/dL (08/22/20::00) Bili Direct: 0.1 mg/dL (08/22/20:24:00) Bili Indirect: 0.9 mg/dL (08/22/20::00) Lipase Lvl: 25 unit/L (08/22/20:24:00) Lactic Acid Lvl: 1.1 mmol/L (08/22/20::00) Magnesium: 1.7 mg/dL (08/22/20::00) CRP: 0.6 mg/dL (08/22/20::00) Beta HB Qnt: 1.04 mmol/L High (08/22/20:24:00) [...] made to ensure accuracy, however, 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 Problem List/Past Medical [...] she is in agreement. Was able to counseling director her on smoking cessation. She should follow-up with her primary care physician for an EGD if needed. No changes are being made to her chronic medications at this time. *Please place this as my admission H&P as well as discharge summary* [facility] Comment on above: Result Comment: Elec tronically Signed By: KSENIA MCINTYRE, Romario\.br\Date and Time Signed: 08/23/20 16:30 EST Inpatient Clinical Summaryon 08-23-2020 Inpatient Clinical Summary [place] [address] Clinical Summary Person Information: Name: MARY PANIAGUA Age: 35 Years : 1985 Sex: Female PCP: MANNIE LEVY CNP Marital Status: Single Race: White Ethnicity: Non- or Language: [place] Visit Id: Visit Reason: Vomiting; Nausea; Epigastric Pain; EPIGASTRIC PAIN, INTRACTABLE UPPER ABOMINAL PAIN Speciality: Acuity: Enc Type: Observation Med Service: Medical Arrival: 08/22/2020 20:19:32 Discharge: Dispo Type: Admitted as IP to this Hosp Address: [address] [place] [address] Provider Notes: Diagnosis: 1:Epigastric abdominal pain; 2:IBS [...] With: Address: When: MANNIE LEVY CNP [address] [address] [phone] Within 1 to 2 weeks Patient Education Information: Low-FODMAP Eating Plan; Diet for Irritable Bowel Syndrome [facility] Inpatient Patient Summaryon 08-23-2020 Inpatient Patient Summary [place] [id number] Patient Discharge Instructions PERSON INFORMATION Name: MARY PANIAGUA Date of : 1985 Current Date: 08/23/2020 16:37:09 PHYSICIANS Admitting Physician: Ronaldo Soni MD Primary Care Physician: MANNIE LEVY CNP PCP Phone Number: [phone] Comment: Discharge Diagnosis: 1:Epigastric abdominal pain; 2:IBS [...] With: Address: When: MANNIE LEVY CNP [address] [facility] [address] [place] [address] [phone] Within 1 to 2 weeks In the event that this physician does not participate in your insurance network, please consult with your insurance company to find a nearby participating provider. Comment: JAY Nunez RACHEL, have received the attached patient education [...] times a day. Pharmacy Information: Other: [facility] Comment: PATIENT EDUCATION INFORMATION Instructions: Low-FODMAP Eating Plan FODMAPs (fermentable oligosaccharides, disaccharides, monosaccharides, and polyols) are sugars that are hard for some people to digest. A low-FODMAP eating plan may help some people who have bowel (intestinal) diseases to manage their symptoms. This meal plan can be complicated to follow. Work with a diet and child specialist (dietitian) to make a low-FODMAP eating [...] Gluten-free pasta, bread, or cereal. Rice noodles. [place] tortillas. Vegetables ? Eggplant, zucchini, cucumber, peppers, green beans, Marty sprouts, cruz sprouts, lettuce, arugula, kale, Namibian chard, spinach, candelario greens, bok esthela, summer [...] amounts of goat cheese, brie, mozzarella, parmesan, bermudian, and other hard cheeses. Meats and other [...] 04/07/2018 Document Revised: 07/24/2018 Document Reviewed: 04/07/2018 [employer] Patient Education ? 2019 [place]. Diet for Irritable Bowel Syndrome When you [...] your health care provider and diet and child specialist (dietitian) to find the eating plan [...] care provider if you should take an ymog-ngs-ktioviu probiotic to help restore healthy bacteria in [...] symptoms worse: ? Fatty foods, such as mongolian fries. ? Foods that contain gluten, such [...] for Functional Gastrointestinal Disorders: www.iffgd.org ? National [place] of Diabetes and Digestive and Kidney Diseases: [...] Your health care provider or diet and child specialist (dietitian) may recommend that you eat more foods that contain fiber. This information is not intended to replace advice given to you by your health care provider. Make sure you discuss any questions you have with your health care provider. Document Released: 10/31/2004 Document Revised: 12/01/2019 Document Reviewed: 04/14/2018 [employer]icket[employer]ap Patient Education ? 2019 [employer] Medication Leaflets: You may receive a survey from [employer] asking you to rate your care experience. Your feedback is important and will help us understand what we do well and how we can improve the quality of care we provide to you, your loved ones and our community. It?s an honor to serve you. Thank you for choosing [facility] Normal [facility] Magnesiumon 08-23-2020 Magnesium [Mass/Vol] 1.7 mg/dL Normal 1.3-2.4 Fish [facility] Comment on above: Performed By: #### 1 [id number], 9908393, 3128972, 1379346, 044465027, 8506893, 378714534, 02765976, 5322002, 9837299, 7511228, 3442798, 08361022 ####[facility] [address] [place] [address] Monitor Recordon 08-23-2020 Monitor Record 170 20 [id number]#1. 00CD:127 Normal [facility] Monitor Record 170 20 [id number]#1. 00CD:127 Normal [facility] Monitor Record 170.. 20 [id number]#1. 00CD:127 Normal [facility] Monitor Record 170.71. 20 [id number]#1. 00CD:127 Normal [facility] Monitor Record 170.. 20 [id number]#1. 00CD:127 Normal [facility] Monitor Record 170.71. 20 [id number]#1. 00CD:127 Normal [facility] Monitor Record 170.. 20 [id number]#1. 00CD:127 Normal [facility] Monitor Record [id number] 20 [id number]#1. 00CD:127 Normal [facility] Monitor Record [id number] 20 [id number]#1. 00CD:127 Normal [facility] Patient Education - Texton 1 Patient Education - Text Gastroenterology Low-FODMAP Eating Plan FODMAPs (fermentable oligosaccharides, disaccharides, monosaccharides, and polyols) are sugars that are hard for some people to digest. A low-FODMAP eating plan may help some people who have bowel (intestinal) diseases to manage their symptoms. This meal plan can be complicated to follow. Work with a diet and child specialist (dietitian) to make a low-FODMAP eating [...] Gluten-free pasta, bread, or cereal. Rice noodles. [place] tortillas. Vegetables ? Eggplant, zucchini, cucumber, peppers, green beans, Marty sprouts, cruz sprouts, lettuce, arugula, kale, Namibian chard, spinach, candelario greens, bok esthela, summer [...] amounts of goat cheese, brie, mozzarella, parmesan, bermudian, and other hard cheeses. Meats and other [...] 04/07/2018 Document Revised: 07/24/2018 Document Reviewed: 04/07/2018 [employer]it Patient Education ? 2019 [place]. Diet for Irritable Bowel Syndrome When you [...] your health care provider and diet and child specialist (dietitian) to find the eating plan [...] care provider if you should take an yxbz-xcx-vfmeqja probiotic to help restore healthy bacteria in [...] symptoms worse: ? Fatty foods, such as mongolian fries. ? Foods that contain gluten, such [...] for Functional Gastrointestinal Disorders: www.iffgd.org ? National [place] of Diabetes and Digestive and Kidney Diseases: [...] Your health care provider or diet and child specialist (dietitian) may recommend that you eat more foods that contain fiber. This information is not intended to replace advice given to you by your health care provider. Make sure you discuss any questions you have with your health care provider. Document Released: 10/31/2004 Document Revised: 12/01/2019 Document Reviewed: 04/14/2018 [employer] Patient Education ? 2019 [employer] Normal [place] RAD - Preliminary Cat Scan R eporton 08-23-2020 RAD - Preliminary Cat Scan Report [id number]#1.0 0CD:127 Normal [facility] U Drug Screenon 08-23-2020 Opiates Screen Ql (U) Positive Abnormal Negative Fis [facility] Comment on above: Result Comment: No c onfirmation requested by Physican\Results verified by repeat analysis\Unconfirmed by alternate method\Critical Result UD_OPIA:POS Called to BEL ESTRADA AT ER by GILSON PALMA And Read Back For Confirmation at: 08/23/2020 07:57:24 Negative Cutoff: <300 ng/mL Performed By: #### 2 169728 ####[facility] [address] [place] [address] Amphetamines Screen method >1000 ng/mL Ql (U) Negative Normal Negative [facility] Comment on above: Result Comment: Nega tive Cutoff: <1000 ng/mL Performed By: #### 2 299192 ####[facility] [address] [place] [address] Barbiturates Screen Ql (U) Negative Normal Negative [facility] Comment on above: Result Comment: Nega tive Cutoff: <200 ng/mL Performed By: #### 2 812084 ####[facility] [address] [place] [address] Benzodiazepines Ql (U) Negative Normal Negative [facility] Comment on above: Result Comment: Nega tive Cutoff: <200 ng/mL Performed By: #### 2 945040 ####[facility] [address] [place] [address] Cocaine Ql (U) Negative Normal Negative [facility] Comment on above: Result Comment: Nega tive Cutoff: <300 ng/mL Performed By: #### 2 866125 ####[address] [address] Phencyclidine Screen method >25 ng/mL Ql (U) Negative Normal Negative [facility] Comment on above: Result Comment: Nega tive Cutoff: <25 ng/mL These drug screen results are to be used for medical (i.e., treatment) purposes only. Unconfirmed drug screening results must not be used for non-medical purposes (e.g., employment testing, legal testing). Performed By: #### 2 922486 ####[address] [address] Tetrahydrocannabinol Screen method >50 ng/mL Ql (U) Negative Normal Negative [facility] Comment on above: Result Comment: Nega tive Cutoff: <50 ng/mL Performed By: #### 2 207486 ####[address] [address] UA With Cult Reflexon 2019 Bilirubin Ql (U) Negative Normal Negative [facility] Comment on above: Performed By: #### 1 0124147 ####[address] [address] Clarity (U) CLEAR Normal Clear [facility] Comment on above: Performed By: #### 1 9072170 ####[place] [address] [place] [address] Color (U) STRAW Abnormal Yellow [facility] Comment on above: Performed By: #### 1 9645814 ####[address] [address] Epithelial cells.squamous LM.HPF (Urine sed) [#/Area] 0-2 Normal 0-2 [facility] Comment on above: Performed By: #### 1 4717530 ####[facility] [address] [place] [address] Glucose Test strip (U) [Mass/Vol] 2+ Abnormal Negative [facility] Comment on above: Performed By: #### 1 1763468 ####[address] [address] Hemoglobin Ql (U) Negative Normal Negative [facility] Comment on above: Performed By: #### 1 5083933 ####[address] [address] Ketones (U) [Mass/Vol] 1+ Abnormal Negative [facility] Comment on above: Performed By: #### 1 4995514 ####[address] [address] Crest.plasma/Crest. RBC (Bld) [Mass ratio] 0-3 Normal 0-3 [facility] Comment on above: Performed By: #### 1 2797199 ####[address] [address] Nitrite Ql (U) Negative Normal Negative [facility] Comment on above: Performed By: #### 1 1916109 ####[address] [address] pH (U) 7.5 [pH] 5.0-9.0 [facility] Comment on above: Performed By: #### 1 1254034 ####[address] [address] Protein (U) [Mass/Vol] Negative Normal Negative [facility] Comment on above: Performed By: #### 1 7646870 ####[address] [address] Specific gravity (U) [Rel density] 1.015 1.005-1.030 [facility] Comment on above: Performed By: #### 1 1338954 ####[facility] [address] [place] [address] UA Spec Desc Clean Catch Normal [facility] Comment on above: Performed By: #### 1 1007332 ####[facility] [address] [place] [address] Urobilinogen Qn (U) 0.2 {Ace'U}/dL Normal 0.0-1.0 [facility] Comment on above: Performed By: #### 1 8466138 ####[place] [address] [place] [address] WBC Auto Ql (U) Negative Normal Negative [facility] Comment on above: Performed By: #### 1 7888674 ####[place] [address] [place] [address] WBC LM.HPF (Urine sed) [#/Area] 0-5 Normal 0-5 [facility] Comment on above: Performed By: #### 1 9362945 ####[address] [address] Auto Diffon 08-22-2020 Basophils/100 WBC (Bld) 0.9 % Normal 0.0-2.0 [facility] Comment on above: Order Comment: Order Added by Discern Expert. Performed By: #### 1 3175808, 2072182, 7194902, 7803921, 190317624, 0317788, 380289052, 77115196, 8334333, 3064895, 6164334, 0125270, 44547561 ####[place] [address] [place] [address] Basophils/Leukocytes Auto (Bld) [Pure # fraction] 0.1 E9/L Normal 0.0-0.2 [facility] Comment on above: Order Comment: Order Added by Discern Expert. Performed By: #### 1 9419034, 3978322, 8676546, 6909222, 567907626, 2917994, 760533234, 69954943, 1263188, 2467118, 2391571, 1284680, 76623246 ####[facility] [address] [place] [address] Eosinophils/100 WBC (Bld) 0.6 % Normal 0.0-8.0 [facility] Comment on above: Order Comment: Order Added by Discern Expert. Performed By: #### 1 7305732, 2523247, 3163632, 5323683, 956894421, 4021403, 681386900, 05134760, 3507625, 1787799, 1359145, 4995146, 38326320 ####[facility] [address] [place] [address] Eosinophils/Leukocytes Auto (Bld) [Pure # fraction] 0.1 E9/L Normal 0.0-0.5 [facility] Comment on above: Order Comment: Order Added by Discern Expert. Performed By: #### 1 3715697, 8007666, 5475904, 5706479, 425188170, 3512564, 159886261, 22554329, 5690690, 9264749, 8999717, 7315554, 75878259 ####[place] [address] [place] [address] Lymphocytes/100 WBC (Bld) 7.0 % Low 14.0-50.0 [facility] Comment on above: Order Comment: Order Added by Discern Expert. Performed By: #### 1 9032068, 6280087, 0268493, 2759100, 239496190, 6999791, 240717748, 76985592, 8234899, 4015150, 6520018, 5896822, 91059881 ####[facility] [address] [place] [address] Lymphocytes/Leukocytes Auto (Bld) [Pure # fraction] 1.0 E9/L Normal 1.0-4.0 [facility] Comment on above: Order Comment: Order Added by Discern Expert. Performed By: #### 1 7137615, 0423858, 5325158, 1676716, 439616107, 2517348, 976430775, 45979933, 5073850, 1972384, 9302773, 0234136, 16557070 ####[facility] [address] [place] [address] Monocytes/100 WBC (Bld) 4.8 % Normal 4.0-14.0 [facility] Comment on above: Order Comment: Order Added by Discern Expert. Performed By: #### 1 8330029, 8441258, 0055928, 1001854, 213155741, 9622169, 890433405, 62713070, 1537446, 2244535, 2774283, 6941074, 97294172 ####[facility] [address] [place] [address] Monocytes/Leukocytes Auto (Bld) [Pure # fraction] 0.7 E9/L Normal 0.2-1.0 [facility] Comment on above: Order Comment: Order Added by Discern Expert. Performed By: #### 1 2658029, 4174602, 1691018, 3978267, 057660025, 5826195, 997259423, 09813279, 3503216, 9138206, 2580571, 2473816, 64342331 ####[facility] [address] [place] [address] Neutrophils/100 WBC (Bld) 86.7 % High 36.0-75.0 [facility] Comment on above: Order Comment: Order Added by Discern Expert. Performed By: #### 1 1716305, 0841135, 3520475, 0465201, 809022718, 4172498, 005304390, 50691190, 1940859, 1939943, 5367499, 6301842, 46597532 ####[facility] [address] [place] [address] Neutrophils/Leukocytes Auto (Bld) [Pure # fraction] 12.5 E9/L High 2.0-7.5 [facility] Comment on above: Order Comment: Order Added by Discern Expert. Performed By: #### 1 2518982, 2400561, 8366497, 9096072, 300914455, 9671927, 800606036, 99668187, 8699205, 0403176, 4129236, 0493703, 21104612 ####[place] [address] [place] [address] BMPon 08-22-2020 Creatinine [Mass/Vol] 0.8 mg/dL Normal 0.5-1.3 [facility] Comment on above: Performed By: #### 1 3990488, 4294181, 0865972, 4361196, 032614064, 0470494, 712791116, 59909369, 7285644, 7823817, 1293958, 5969391, 13667623 ####[place] [address] [place] [address] Urea nitrogen [Mass/Vol] 11 mg/dL Normal 5-21 [facility] Comment on above: Performed By: #### 1 2398337, 6628782, 9067164, 8169317, 480287531, 4598964, 811680367, 18098941, 5730910, 2817940, 3187690, 3734429, 99122090 ####[facility] [address] [place] [address] Urea nitrogen/Creatinine [Mass ratio] 14 No Units Normal 10-20 [facility] Comment on above: Performed By: #### 1 5803480, 4651604, 1637500, 5966983, 341731771, 9302948, 821478295, 83041306, 2314686, 1941231, 1739418, 2158929, 28923786 ####[facility] [address] [place] [address] Anion gap [Moles/Vol] 15 mmol/L Normal 6-16 [facility] Comment on above: Performed By: #### 1 7175482, 2955119, 3005503, 8314197, 850115650, 3102919, 437348260, 76514930, 1900893, 9203333, 0854960, 6278360, 33787058 ####[facility] [address] [place] [address] Calcium [Mass/Vol] 9.4 mg/dL Normal 8.9-11.1 [facility] Comment on above: Performed By: #### 1 1782467, 2405340, 3395444, 7373115, 264247141, 3266623, 890493130, 01253454, 1624450, 2280090, 2868820, 1910572, 58664219 ####[place] [address] [place] [address] Chloride [Moles/Vol] 102 mmol/L Normal 101-111 [facility] Comment on above: Performed By: #### 1 1995597, 1580590, 4672439, 4650104, 748880183, 9924709, 623117680, 33142335, 4483565, 6310038, 6827746, 9940696, 46196927 ####[place] [address] [place] [address] CO2 [Moles/Vol] 22 mmol/L Normal 21-31 [facility] Comment on above: Performed By: #### 1 3039428, 2911489, 7216182, 9033034, 543442595, 9009586, 378489097, 66991637, 6069555, 8190706, 3617820, 3246735, 84421954 ####[place] [address] [place] [address] Glucose [Mass/Vol] 208 mg/dL High 55-199 [facility] Comment on above: Result Comment: If t his glucose result represents a fasting glucose, interpretation should refer to the following reference range: 55-99 mg/dL Performed By: #### 1 3308658, 3998703, 6946354, 3722085, 851141328, 8904911, 238603364, 67215968, 1659520, 6145705, 7692397, 4671925, 30938755 ####[place] [address] [place] [address] Potassium [Moles/Vol] 3.4 mmol/L Low 3.5-5.3 [facility] Comment on above: Performed By: #### 1 6170513, 0452453, 6150868, 1709599, 931086420, 2311141, 594027800, 09377792, 1831211, 1343391, 7961437, 4809578, 48721006 ####[facility] [address] [place] [address] Sodium [Moles/Vol] 136 mmol/L Normal 135-145 [facility] Comment on above: Performed By: #### 1 7322797, 3469674, 5945050, 4204091, 284295134, 6116350, 905791690, 15852875, 1012341, 5407052, 7043358, 8781177, 89762289 ####[place] [address] [place] [address] CBC w/ Auto Diffon Erythrocyte distribution width (RBC) [Ratio] 14.1 % Normal 10.9-14.2 [facility] Comment on above: Performed By: #### 1 9795967, 8165018, 5028702, 3534567, 085686008, 0678361, 211711810, 42084918, 8365563, 3956113, 6125392, 9748542, 98212441 ####[address] [place] [address] Hematocrit (Bld) [Volume fraction] 42.9 % Normal 34.0-46.0 [facility] Comment on above: Performed By: #### 1 7509602, 3089407, 5195949, 2786451, 428130732, 8636987, 963236726, 49544592, 5851696, 3846567, 3288673, 1470648, 63904243 ####[address] [place] [address] Hemoglobin (Bld) [Mass/Vol] 13.9 g/dL Normal 12.0-16.0 [facility] Comment on above: Performed By: #### 1 4253292, 6048517, 5463499, 9382593, 480326979, 0209293, 320759380, 23149700, 7498825, 6482697, 6539023, 4588027, 33413636 ####[facility] [address] [place] [address] MCH (RBC) [Entitic mass] 28.2 pg Normal 27.0-34.0 [facility] Comment on above: Performed By: #### 1 9947120, 7876131, 3968960, 6508990, 356596558, 2043861, 865800061, 34084972, 4876515, 1474111, 5533286, 4464884, 81796059 ####[facility] [address] [place] [address] MCHC (RBC) [Mass/Vol] 32.4 g/dL Normal 31.4-36.0 [facility] Comment on above: Performed By: #### 1 1163959, 2565236, 8334805, 7488376, 315705944, 8033369, 615077522, 64232182, 5435983, 5772042, 9491826, 1437400, 50743545 ####[address] [place] [address] MCV (RBC) [Entitic vol] 87.1 fL Normal 80.0-100.0 [facility] Comment on above: Performed By: #### 1 7073187, 7004902, 6208115, 2929517, 626054025, 8304860, 648669003, 00153029, 4215332, 0738960, 9640086, 6586805, 59740646 ####[facility] [address] [place] [address] Platelet mean volume (Bld) [Entitic vol] 7.4 fL Normal 6.4-10.8 [facility] Comment on above: Performed By: #### 1 7243676, 5779732, 4464867, 0574062, 381264730, 8864926, 654119280, 39764332, 7108886, 9186713, 9038084, 6870529, 84551320 ####[facility] [address] [place] [address] Platelets (Bld) [#/Vol] 357.0 E9/L Normal 150.0-500.0 [facility] Comment on above: Performed By: #### 1 4075031, 1495715, 2106571, 5651581, 405672814, 2684641, 354056839, 05021501, 0512638, 3621037, 4842398, 7883051, 03034644 ####[facility] [address] [place] [address] RBC (Bld) [#/Vol] 4.9 E12/L Normal 4.3-5.9 [facility] Comment on above: Performed By: #### 1 9292274, 3074803, 0625913, 3053239, 626523153, 4223871, 195337891, 50387579, 2737494, 0834265, 8547298, 4815458, 53824023 ####[facility] [address] [place] [address] WBC corrected for nucl RBC Auto (Bld) [#/Vol] 14.4 E9/L High 4.0-11.0 [facility] Comment on above: Performed By: #### 1 0549238, 1817546, 0054874, 0177403, 230322590, 6234088, 969873487, 57409317, 7855187, 9720403, 5299807, 4737416, 34787807 ####[facility] [address] [place] [address] CRPon 08-22-2020 CRP [Mass/Vol] 0.6 mg/dL Normal <=1.9 [facility] Comment on above: Performed By: #### 1 1528305, 1807430, 3814816, 0451773, 653027316, 8757085, 905086848, 80547559, 0769852, 8092199, 3074711, 0698619, 24973083 ####[facility] [address] [place] [address] Consent for Treatmenton 07-26 Consent for Treatment [id number] 1203 [id number]. 00CD:127 Normal [facility] Hep Func Panelon 08-22-2020 Albumin [Mass/Vol] 1.7 g/dL Normal 1.1-2.2 [facility] Comment on above: Performed By: #### 1 0376393, 2945596, 1915711, 1215338, 338396156, 8655520, 441187250, 00007508, 0999865, 5277823, 2306528, 5029159, 47966712 ####[facility] [address] [place] [address] Albumin [Mass/Vol] 4.8 g/dL Normal 3.3-5.0 [facility] Comment on above: Performed By: #### 1 7721722, 0409546, 4805200, 4610636, 788878466, 3396621, 007268295, 08590573, 4741128, 4875732, 8707096, 8372322, 54284019 ####[facility] [address] [place] [address] ALP [Catalytic activity/Vol] 75 Int._Unit/L Normal 21-98 [facility] Comment on above: Performed By: #### 1 9343764, 9157980, 2421683, 9053747, 689499450, 2474422, 296807134, 72872968, 6133167, 6412328, 8534179, 2442909, 62053500 ####[facility] [address] [place] [address] ALT No additional P-5'-P [Catalytic activity/Vol] 14 Int._Unit/L Normal 6-46 [facility] Comment on above: Performed By: #### 1 4573253, 9739149, 1323721, 1589154, 615117448, 3497257, 682200430, 90811364, 8036659, 2571503, 7945974, 6662147, 99859112 ####[facility] [address] [place] [address] AST [Catalytic activity/Vol] 13 Int._Unit/L Normal 5-43 [facility] Comment on above: Performed By: #### 1 1658693, 9557299, 6275427, 0150544, 671469885, 4997003, 324498624, 84675313, 9320225, 4648475, 5786829, 3432837, 26360932 ####[facility] [address] [place] [address] Bilirubin [Mass/Vol] 1.0 mg/dL Normal 0.0-1.1 [facility] Comment on above: Performed By: #### 1 1656131, 6591543, 7572519, 7380380, 903160055, 1141425, 573316936, 41605292, 4315755, 1337794, 5756880, 9851096, 19724132 ####[facility] [address] Bilirubin.direct [Mass/Vol] 0.9 mg/dL Normal 0.1-0.9 [facility] Comment on above: Performed By: #### 1 1077662, 6880075, 0663013, 8343577, 310746441, 4955392, 462105885, 27221635, 5776284, 5049049, 8859473, 8534986, 54011364 ####[facility] [address] [place] [address] Bilirubin.direct [Mass/Vol] 0.1 mg/dL Normal 0.1-0.4 [facility] Comment on above: Performed By: #### 1 9853366, 7730694, 0048299, 1500031, 198508025, 9860205, 240111417, 54012204, 4840439, 0916989, 1122128, 5695157, 51144313 ####[facility] [address] [place] [address] Globulin (S) [Mass/Vol] 2.9 g/dL Normal 1.4-4.0 [facility] Comment on above: Performed By: #### 1 1609255, 9920813, 3895404, 2710365, 051617346, 5688230, 722012669, 94948432, 0054508, 1523289, 2369766, 9695531, 46228357 ####[facility] [address] [place] [address] Protein [Mass/Vol] 7.7 g/dL Normal 6.0-7.8 [facility] Comment on above: Performed By: #### 1 9738602, 0423585, 0056239, 5620176, 191979924, 0591970, 495689091, 95325614, 7073715, 3866879, 8190093, 8469059, 63713084 ####[facility] [address] [place] [address] Lactic Acidon 08-22-2020 Lactate [Mass/Vol] 1.1 mmol/L Normal 0.5-2.2 [facility] Comment on above: Performed By: #### 1 4395032, 6593941, 3019815, 5334345, 319356446, 6402528, 332874270, 17205815, 6416179, 6477200, 3801822, 5432396, 51363558 ####[facility] [address] [place] [address] Lipase Levelon 08-22-2020 Lipase [Catalytic activity/Vol] 25 unit/L Normal 13-58 [facility] Comment on above: Performed By: #### 1 7468588, 0538275, 3734329, 5556648, 910338002, 6160116, 494256296, 49478030, 3702816, 8527115, 2793226, 9118962, 22523062 ####[address] [place] [address] Pre-Arrival Noteon 0 Pre-Arrival Note Pre-Arrival Summary Name: , citizens Current Date: 08/22/2020 20:23:24 EST Gender: Female Date of : Age: 35 Pre-Arrival Type: EMS ETA: 08/22/2020 20:35:00 EST Primary Care Physician: Presenting Problem: epigastric pain Pre-Arrival User: Ankit HUBER, David Lange Referring Source: Location: PA Completion Date/Time: 08/22/2020 20:05:00 [facility] Emergency Department Pre-Hospital Report Form Vital Signs: 162/109, 84 pulse, 98%ra Pre-Hospital Report: epigatric pain Treatment in Route: Response to Treatment: Misc. Issues: Normal [facility] Sed Rate Automatedon 020 ESR (Bld) [Velocity] 6 mm/h Normal 0-34 [facility] Comment on above: Performed By: #### 1 8252010, 5006189, 4877762, 0649517, 233891149, 3514501, 564353512, 33981202, 4971273, 5246187, 0344855, 0831686, 75848263 #### [facility] [address] [place] [address] eGFRon 08-22-2020 GFR/1.73 sq M predicted among blacks MDRD (S/P/Bld) [Vol rate/Area] mL/min/{1.73_m2} Normal >=59 [facility] Comment on above: Order Comment: Order added by Discern Expert. Result Comment: eGFR is race adjusted. AA=. Performed By: #### 1 3748459, 7871071, 6644110, 9322267, 189951312, 7688645, 048373747, 73504903, 2856632, 6341209, 1806097, 7213775, 43679991 ####[facility] [address] [place] [address] GFR/1.73 sq M predicted among non-blacks MDRD (S/P/Bld) [Vol rate/Area] mL/min/{1.73_m2} Normal >=59 [facility] Comment on above: Order Comment: Order added by Discern Expert. Result Comment: [facility] Hand rico kidney disease could be indicated at eGFR's of less than 60 mL/min/1.73m2. Kidney failure is indicated at less than 15 mL/min/1.73m2. Performed By: #### 1 2285046, 1083791, 5603442, 5510083, 453058742, 3250691, 413553724, 17426285, 4506307, 3535884, 9671432, 1681111, 22213492 ####[facility] [address] [place] [address] Hemoglobin A1con 08-02-2020 HbA1c (Bld) [Mass fraction] 6.3 % Critically high 4.8-5.9 [facility] Comment on above: Performed By: #### A 1C #### [facility] [address] [place] [id number] US NON OB TRANSVAGINALon US NON OB [...] Ab Jennings MD 07/31/20 Final result Normal [facility] US PELVIS COMPLETEon 020 US PELVIS [...] Ab Jennings MD 07/31/20 Final result Normal [facility] Comprehensive Metabolic Pane samina 07-10-2020 Anion gap [Moles/Vol] 12 mmol/L Normal -15 [facility] Comment on above: Performed By: #### C MP #### [facility] [address] [place] [address] Albumin [Mass/Vol] 4.3 g/dL Normal 3.5-4.6 [facility] Comment on above: Performed By: #### C MP #### [facility] [address] [place] [address] ALP [Catalytic activity/Vol] 75 U/L Normal 40-130 [facility] Comment on above: Performed By: #### C MP #### [facility] [address] [place] [address] ALT [Catalytic activity/Vol] 7 U/L Normal 0-33 [facility] Comment on above: Performed By: #### C MP #### [facility] [address] [place] [address] AST [Catalytic activity/Vol] 7 U/L Normal 0-35 [facility] Comment on above: Performed By: #### C MP #### [facility] [address] [place] [address] Bilirubin [Mass/Vol] mg/dL Normal 0.2-0.7 [facility] Comment on above: Performed By: #### C MP #### [facility] [address] [place] [address] Calcium [Mass/Vol] 9.1 mg/dL Normal 8.5-9.9 [facility] Comment on above: Performed By: #### C MP #### [facility] [address] [place] [address] Chloride [Moles/Vol] 100 mmol/L Normal 95-107 [facility] Comment on above: Performed By: #### C MP #### [facility] [address] [place] [address] CO2 [Moles/Vol] 27 mmol/L Normal 20-31 [facility] Comment on above: Performed By: #### C MP #### [facility] [address] [place] [address] Creatinine [Mass/Vol] 0.70 mg/dL Normal 0.50-0.90 [facility] Comment on above: Performed By: #### C MP #### [facility] [address] [place] [address] GFR >60.0 Normal >60 [facility] Comment on above: Result Comment: >60 mL/min/1.73m2 EGFR, calc. for ages 18 and older using the MDRD formula (not corrected for weight), is valid for stable renal function. Performed By: #### C MP #### [facility] [address] [place] [address] GFR/1.73 sq M.predicted among blacks MDRD (S/P/Bld) [Vol rate/Area] mL/min/{1.73_m2} Normal >60 [facility] Comment on above: Result Comment: >60 mL/min/1.73m2 EGFR, calc. for ages 18 and older using the MDRD formula (not corrected for weight), is valid for stable renal function. Performed By: #### C MP #### [facility] [address] [place] [address] Globulin (S) [Mass/Vol] 2.3 g/dL Normal 2.3-3.5 [facility] Comment on above: Performed By: #### C MP #### [facility] [address] [place] [address] Glucose [Mass/Vol] 117 mg/dL Critically high 70-99 [facility] Comment on above: Performed By: #### C MP #### [facility] [address] [place] [address] Potassium [Moles/Vol] 3.6 mmol/L Normal 3.4-4.9 [facility] Comment on above: Performed By: #### C MP #### [facility] [address] [place] [address] Protein [Mass/Vol] 6.6 g/dL Normal 6.3-8.0 [facility] Comment on above: Performed By: #### C MP #### [facility] [address] [place] [address] Sodium [Moles/Vol] 139 mmol/L Normal 135-144 [facility] Comment on above: Performed By: #### C MP #### [facility] [address] [place] [address] Urea nitrogen [Mass/Vol] 8 mg/dL Normal 6-20 [facility] Comment on above: Performed By: #### C MP #### [facility] [address] [place] [address] TSH w/Reflexon 07-10-2020 TSH w/Reflex 1.110 uIU/mL Normal 0.440-3.86 [facility] Comment on above: Performed By: #### T SHR #### [facility] [address] [place] [address] CASE MANAGEMon 11-22-2019 CASE MANAGEM HNO ID: [id number] Author: Shama Herrera (Sw)[place] Service: ? Author Type: Law Office Assistant Type: Care Mgt Progress Note Filed: 11/22/2019 [...] essentially having to make two trips from [place]. SW met with Pt at the bedside. [...] time, there is no indication to involve [facility]. Pt is protective and [...] relationship. SW also provided contact information for [facility]. At this time, Jose returned back home and Pt will need to contact [facility] to set up hospital discharge transportation when medically cleared. AVRIL will remain available if additional needs arise. SIGNATURE: VERN Clark PATIENT NAME: Mary Paniagua DATE: November 22, 2019 TIME: 2:28 PM PAGER/CONTACT #: [phone] [facility] HNO ID: [id number] Author: Shama [place] (Sw) Service: ? Author Type: Law Office Assistant Type: Care Mgt Initial Assessment Filed: 11/22/2019 11:17 AM Note Text: CARE MANAGEMENT: ASSESSMENT AND DISCHARGE PLAN SERVICE DATE: November 22, 2019 SERVICE TIME: 9:53 AM PRIMARY CARE PHYSICIAN: No primary care provider on file. 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 ) Pt is a 34 year old [...] the following: She currently is living in [place] with her 8 year old son, Jovan, and her with whom she is currently x4 years. Pt has a 16 year old daughter who lives with her father in [place]. Pt's is not the FOB. FOB is Garth Alamo, he and Pt are not in a relationship, he does not plan to be involved with the baby. Pt plans to establish paternity and file for child support. Pt lost her job at [employer] in August d/t missed work from health/ [...] Tx program and [facility] [facility] in [facility]. Pt reported that she was addicted to Crack Cocaine about four years ago and went into treatment at [facility] by the [place] from August 2016-January 2017. Pt has been sober since starting her Tx program. Pt received three tox screens during her on 05/10/19 (pain panel), 07/16/19 (pain panel), and 11/19/19 (utox), all of which were negative. Pt also had involvement with [facility] and her son was in foster care while Pt was in [place]. Pt stated her son was returned to [...] worked with her PCP, Mannie Martin of [facility], who prescribed Pt Lexapro with good effect. Pt reports she has been feeling much better since starting Lexapro. Pt noted she is also linked with a community mental health director of casework through [facility] who is working on getting Pt linked with Psychiatry there as well. Pt currently engaged in phone meetings with her director of casework 2x week d/t COVID-19 social distancing requirements. Pt feels well supported by her director of casework and will continue with her post . Her next appointment/phone call with her director of casework is scheduled for tomorrow at 10:30. 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 SW will coordinate transportation home for Pt. Pt reports no additional needs at this time, SW will remain available if needs arise. SIGNATURE: VERN Clark PATIENT NAME: Mary Paniagua DATE: November 22, 2019 TIME: 9:53 AM PAGER/CONTACT #: [phone] [facility] PLAN OF CAREon 11-22-2019 PLAN OF CARE HNO ID: [id number] Author: Korin Simeon (Counseling Director) Service: ? Author Type: ? Type: Plan of Care Filed: 11/22/2019 12:55 PM Note Text: PHARMACY BEDSIDE DELIVERY SERVICE Patient Name: Mary Paniagua The marked outpatient medications were Filled at: [place] and delivered to the patient's bedside to [...] or your Primary Care Provider. Korin Simeon (CeQur) PAGER: [phone] November 22, 2019 12:54 PM [facility] PLAN OF CARE HNO ID: [id number] Author: Korin Simeon (CeQur) Service: ? Author Type: ? Type: Plan of Care Filed: 11/22/2019 10:26 AM Note Text: Pharmacy Discharge Medication Service: This patient has elected to receive their discharge prescriptions through the [facility] Bedside Prescription Delivery program. The prescriptions are currently being processed. A follow-up note will be entered once the prescriptions have been filled and delivered to the patient. Please contact me with any questions or updates to the patient's discharge medications. Korin Simeon (CeQur) DCT Contact Info: [id number] [facility] CARE HNO ID: [id number] Author: Korin Simeon (CeQur) Service: ? Author Type: ? Type: Plan of Care Filed: 11/22/2019 10:26 AM Note Text: [facility] BEDSIDE DELIVERY SURVEY 1. Patient to use [facility] Bedside Delivery - YES Insurance Information as follows: 2. Insurance card on file - YES 3. Credit card for payment - N/A Patient has no prescriptions yet. Please page [phone] upon discharge. [facility] PROGRESSon 11-22-2019 PROGRESS HNO ID: [id number] Author: Mannie Esquivel MD Service: Gynecology Author [...] ideation -Continue Lexapro -Follows with outpatient psychiatry - consult -Sitter in room 7. Abdominal pain [...] November 22, 2019 TIME: 6:03 AM [facility] ANES POSTPROC EVALon 020 ANES POSTPROC EVAL HNO ID: [id number] Author: Eligio Casillas Service: ? Author Type: [...] 97 % 11/21/2019 8:33 AM Jerzy Paniagua [[id number]] Please use the Print Group Gallery Or Museum Technician activity in [employer] to make print groups. Contact your technical system analyst for more information. Post Anesthesia Patient Status [...] November 21, 2019 TIME: 8:42 AM CSN: [id number] Normal [facility] Blood Gases,Cord,Art (For [facility] and [facility])on 11-21-2019 Base Deficit 7.4 mmol/L Normal 4.4-8.3 [facility] Comment on above: Performed By: #### C STEVEN CMP #### [place] [address] HCO3 (Bld) [Moles/Vol] 21 mmol/L Normal 17-27 [facility] Comment on above: Performed By: #### C BCEMIGDIOF CMP #### [place] [address] Oxygen (Bld) [Partial pressure] mm[Hg] High 5.5-30.5 [facility] Comment on above: Performed By: #### C BCEMIGDIOF CMP #### [place] [address] pCO2 53 mm Hg Normal 32-66 [facility] Comment on above: Performed By: #### C BCDIF CMP #### [place] [address] pH (Bld) 7.22 [pH] Normal 7.18-7.38 [facility] Comment on above: Performed By: #### C STEVEN, [facility] #### [facility] [address] [place] [address] LD NOTEon 11-21-2019 LD NOTE HNO ID: [id number] Author: Skyla Claudio Service: Obstetrics Author Type: Physician Type: LANDD Delivery Note Filed: 11/21/2019 4:27 AM Note Text: OBSTETRICS DELIVERY SUMMARY - VAGINAL DELIVERY Gestational Age at Delivery: 36w1d Service Date: 11/21/2019 Service Time: 4:24 AM Jerzy Paniagua [[id number]] Labor Events Rupture Date: 11/21/19 Rupture Time: 106 Rupture Type: SROM Fluid Color: Blood Tinged Induction: Yes Induction Method: AROM, Lopez Bulb Catheter, Oxytocin Episiotomy/Laceration: Episiotomy: None Lacerations: None Delivery Blood Loss: Estimated Blood Loss (mL): 300 Total Delivery Blood Loss (mL): 300 Date and Time of : Date of : 11/21/19 Time of : 325 Delivery Information: Primary Reason for Delivery : [...] : 9 Five Minute : 9 Code [place] Called: Yes Type of Code [place] Team Needed: Planned Resuscitation Needed: No, see Peds Delivery Attendance Note/Progress Note 34 year old 36w1d induction of labor for preeclampsia with severe features, PUI for COVID-19 transferred from [facility]. Induction of labor with normal progression and short second stage. Vigorous infant. Placenta spontaneous and intact. No lacerations. A [...] November 21, 2019 TIME: 4:24 AM [facility] NURSING PROGon 11-21-2019 NURSING PROG HNO ID: [id number] Author: Rosario (Rn) CECILE Aiken Service: Obstetrics Author Type: Registered Nurse Type: Nursing Progress Note Filed: 11/21/2019 1:09 PM Note Text: Nursing Progress Note Patient Name: Mary Paniagua Patient Location: [id number] __ Called to room by sitter; pt having 10/10 epigastric pain; anxiety elevated. Pt stated she was diagnosed with IBS, Colitis and peptic ulcer. Bentyl restarted. Resident called to see pt. Regarding pain control AND anxiety. In unit; will come see pt. This note was completed by: Rosario Aiken RN [facility] PROGRESSon 11-21-2019 PROGRESS HNO ID: [id number] Author: Bel Hernandes Service: ? Author Type: [...] November 21, 2019 TIME: 5:50 PM [facility] PROGRESS HNO ID: [id number] Author: Skyla Claudio Service: Obstetrics Author Type: [...] hours post delivery. Skyla Claudio MD [facility] PROGRESS HNO ID: [id number] Author: Skyla Claudio Service: Obstetrics Author Type: Physician Type: Progress Notes Filed: 11/21/2019 4:43 AM Note Text: COVID-19 result negative. Will discontinue precautions. Routine PP care for preeclampsia. Skyla Claudio MD [facility] PROGRESS HNO ID: [id number] Author: Skyla Claudio Service: Obstetrics Author Type: [...] 125/62 Pain Score Trend (last 4 values) 11/20/19 2000 11/20/19 2100 11/20/19 2303 11/21/19 0000 Pain Level: 0 4 4 2 PHYSICAL EXAM: General: NAD Cervical Exam Trend (last 4 values) 11/20/19 1745 11/20/19 2048 Dilation: 1.5 4 Effacement (%): 60 60 [...] 2019 TIME: 1:20 AM PAGER/CONTACT #: Normal [facility] Urinalysis with Microscopico n 11-21-2019 Bacteria LM.HPF (Urine sed) [#/Area] Rare Critically abnormal Negative [facility] Comment on above: Performed By: #### U AWMIC #### [place] [address] Bilirubin, Urine Negative Normal Negative [facility] Comment on above: Performed By: #### U AWMIC #### [place] [address] Clarity (U) Hazy Critically abnormal Clear [facility] Comment on above: Performed By: #### U AWMIC #### [place] [address] Color (U) Yellow Normal Yellow [facility] Comment on above: Performed By: #### U AWMIC #### [place] [address] Comments SEE COMMENT Normal [facility] Comment on above: Result Comment: Micr oscopic Examination Performed Performed By: #### U AWMIC #### [place] [address] Epithelial cells LM.HPF (Urine sed) [#/Area] SEE COMMENT Critically abnormal Negative [facility] Comment on above: Result Comment: Rare Squamous Epithelial Cells Performed By: #### U AWMIC #### [place] [address] Glucose Ql (U) Negative Normal [facility] Comment on above: Performed By: #### U AWMIC #### [place] [address] Hemoglobin/Blood,Ur Large Critically abnormal Negative [facility] Comment on above: Performed By: #### U AWMIC #### [place] [id number] Ketones Ql (U) 80 Critically abnormal Negative [facility] Comment on above: Performed By: #### U AWMIC #### [place] [address] Leukest Negative Normal [facility] [facility] Comment on above: Performed By: #### U AWMIC #### [place] [phone] Mucus Ql (Urine sed) Present Normal [facility] Comment on above: Performed By: #### U AWMIC #### [place] [phone] Nitrite Ql (U) Negative Normal Negative [facility] Comment on above: Performed By: #### U AWMIC #### [phone] pH (Bld) 5.0 Normal 5.0-8.0 [facility] Comment on above: Performed By: #### U AWMIC #### [place] [phone] Protein (U) [Mass/Vol] Negative Normal Negative [facility] Comment on above: Performed By: #### U AWMIC #### [place] [phone] RBC (U) [#/Vol] Many Critically abnormal Negative [facility] Comment on above: Performed By: #### U AWMIC #### [phone] Specific [place], Ur 1.014 Normal 1.005-1.030 [facility] Comment on above: Performed By: #### U AWMIC #### [place] [phone] Urobilinogen Qn (U) <2.0 Normal <2.0 [facility] Comment on above: Performed By: #### U AWMIC #### [place] [phone] WBC (Bld) [#/Vol] Rare Critically abnormal Negative [facility] Comment on above: Performed By: #### U AWMIC #### [phone] Urine Cultureon 11-21-2019 Bacteria identified Cx Nom (U) Sp. Request/Comment: - Specimen received in preservative Culture Result - No growth (<100 CFU/ml) Normal [facility] Comment on above: Performed By: #### P RATIO #### [facility] [address] [place] [address] ANES PRE-OPon 11-20-2019 ANES PRE-OP HNO ID: [id number] Author: Jose West) MAXIMO Cline.SHOTGUN SHELL ASSEMBLY MACHINE OPERATOR Service: ? Author Type: Nurse Lead Assembler Type: Anesthesia Preprocedure Evaluation Filed: 11/20/2019 8:09 PM Note Text: OB ANESTHESIA PRE-PROCEDURE ASSESSMENT PATIENT NAME: Mary Paniagua : 1985 Pt is a 34yo with EGA of 36w0d who presents in labor from [facility]. Had Previous Epidural today from [facility] and removed prior to transport. Pt stated no issues with Placement and stated that the epidural worked for her prior to removal. [facility] ANES SAS ANALYST: Previous OB anesthetic: Epidural No OB anesthesia [...] 2019 TIME: 8:02 PM : 1985 Normal [facility] CBC With Platelet and Differ entialon 11-20-2019 Basophils (Bld) [#/Vol] 0.1 10*3/uL Normal 0.0-0.2 [facility] Comment on above: Performed By: #### L DH #### [facility] [address] [facility] [address] Basophils/100 WBC (Bld) 0.7 % Normal [facility] Comment on above: Performed By: #### L DH #### [facility] [address] [facility] [address] Eosinophils (Bld) [#/Vol] 0.0 10*3/uL Normal 0.0-0.7 [facility] Comment on above: Performed By: #### L DH #### [facility] [address] [place] [address] Eosinophils/100 WBC (Bld) 0.0 % Normal [facility] Comment on above: Performed By: #### L DH #### [facility] [address] [place] [address] Erythrocyte distribution width (RBC) [Ratio] 13.3 % Normal 11.5-14.5 [facility] Comment on above: Performed By: #### L DH #### [facility] [address] [place] [address] Hematocrit (Bld) [Volume fraction] 33.7 % Low 37.0-47.0 [facility] Comment on above: Performed By: #### L DH #### [facility] [address] [place] [address] Hemoglobin (Bld) [Mass/Vol] 11.3 g/dL Low 12.0-16.0 [facility] Comment on above: Performed By: #### L DH #### [facility] [address] [place] [address] Lymphocytes (Bld) [#/Vol] 1.1 10*3/uL Normal 1.0-4.8 [facility] Comment on above: Performed By: #### L DH #### [facility] [address] [place] [address] Lymphocytes/100 WBC (Bld) 7.6 % Normal [facility] Comment on above: Performed By: #### L DH #### [facility] [address] [place] [address] MCH (RBC) [Entitic mass] 29.9 pg Normal 27.0-31.3 [facility] Comment on above: Performed By: #### L DH #### [facility] [address] [place] [address] MCHC (RBC) [Mass/Vol] 33.7 % Normal 33.0-37.0 [facility] Comment on above: Performed By: #### L DH #### [facility] [address] [place] [address] MCV (RBC) [Entitic vol] 88.9 fL Normal 82.0-100.0 [facility] Comment on above: Performed By: #### L DH #### [facility] [address] [place] [address] Monocytes (Bld) [#/Vol] 0.4 10*3/uL Normal 0.2-0.8 [facility] Comment on above: Performed By: #### L DH #### [facility] [address] [place] [address] Monocytes/100 WBC (Bld) 2.6 % Normal [facility] Comment on above: Performed By: #### L DH #### [facility] [address] [place] [address] Neutrophils (Bld) [#/Vol] 12.5 10*3/uL Critically high 1.4-6.5 [facility] Comment on above: Performed By: #### L DH #### [facility] [address] [place] [address] Neutrophils/100 WBC (Bld) 89.1 % Normal [facility] Comment on above: Performed By: #### L DH #### [facility] [address] [place] [address] Platelets (Bld) [#/Vol] 344 10*3/uL Normal 130-400 [facility] Comment on above: Performed By: #### L DH #### [facility] [address] [place] [address] RBC (Bld) [#/Vol] 3.79 10*6/uL Low 4.20-5.40 [facility] Comment on above: Performed By: #### L DH #### [facility] [address] [place] [address] WBC (Bld) [#/Vol] 14.0 10*3/uL Critically high 4.8-10.8 [facility] Comment on above: Performed By: #### L DH #### [facility] [address] [facility] [id number] CBC and Differentialon 11-19 Abs Baso <0.03 Normal <0.11 [facility] Comment on above: Performed By: #### C BCDIF, CMP #### [place] [phone] Abs [place] 1.18 k/uL High <0.87 [facility] Comment on above: Performed By: #### C BCDIF, CMP #### [place] [phone] Abs Neut 18.44 k/uL High 1.45-7.50 [facility] Comment on above: Performed By: #### C BCDIF, CMP #### [place] [phone] Basophils/100 WBC (Bld) 0.0 % Normal [facility] Comment on above: Performed By: #### C BCDIF, CMP #### [place] [phone] DTYPE Auto Diff Normal [facility] Comment on above: Performed By: #### C BCDIF, CMP #### [place] [phone] Eosinophils (Bld) [#/Vol] 10*3/uL Normal <0.46 [facility] Comment on above: Performed By: #### C BCDIF, CMP #### [place] [phone] Eosinophils/100 WBC (Bld) 0.0 % Normal [facility] Comment on above: Performed By: #### C BCDIF, CMP #### [phone] Erythrocyte distribution width (RBC) [Ratio] 13.7 % Normal 11.5-15.0 [facility] Comment on above: Performed By: #### C BCDIF, CMP #### [place] [phone] Hematocrit (Bld) [Volume fraction] 37.4 % Normal 36.0-46.0 [facility] Comment on above: Performed By: #### C BCDIF, CMP #### [place] [phone] Hemoglobin (Bld) [Mass/Vol] 12.5 g/dL Normal 11.5-15.5 [facility] Comment on above: Performed By: #### C BCDIF, CMP #### [address] Lymphocytes (Bld) [#/Vol] 1.37 10*3/uL Normal 1.00-4.00 [facility] Comment on above: Performed By: #### C BCDIF, CMP #### [address] Lymphocytes/100 WBC (Bld) 6.5 % Normal [facility] Comment on above: Performed By: #### C BCDIF, CMP #### [place] [phone] MCH (RBC) [Entitic mass] 30.0 pG Normal 26.0-34.0 [facility] Comment on above: Performed By: #### C BCDIF, CMP #### [place] [phone] MCHC (RBC) [Mass/Vol] 33.4 g/dL Normal 30.5-36.0 [facility] Comment on above: Performed By: #### C BCDIF, CMP #### [place] [phone] MCV (RBC) [Entitic vol] 89.9 fL Normal 80.0-100.0 [facility] Comment on above: Performed By: #### C BCDIF, CMP #### [place] [phone] Monocytes/100 WBC (Bld) 5.6 % Normal [facility] Comment on above: Performed By: #### C BCDIF, CMP #### [address] [address] Neutrophils/100 WBC (Bld) 87.9 % Normal [facility] Comment on above: Performed By: #### C BCDIF, CMP #### [place] [address] Platelet mean volume (Bld) [Entitic vol] 10.2 fL Normal 9.0-12.7 [facility] Comment on above: Performed By: #### C BCDIF, CMP #### [place] [address] Platelets (Bld) [#/Vol] 437 10*3/uL High 150-400 [facility] Comment on above: Performed By: #### C BCDIF, CMP #### [place] [address] RBC (Bld) [#/Vol] 4.16 10*6/uL Normal 3.90-5.20 [facility] Comment on above: Performed By: #### C BCDIF, CMP #### [place] [address] WBC (Bld) [#/Vol] 21.00 10*3/uL High 3.70-11.00 [facility] Comment on above: Performed By: #### C BCDIF, CMP #### [place] [address] Comp Metabolic Panelon 11-19 Albumin [Mass/Vol] 3.6 g/dL Normal 3.5-5.0 [facility] Comment on above: Performed By: #### C BCDIF, CMP #### [place] [id number] ALP [Catalytic activity/Vol] 134 U/L High 34-123 [facility] Comment on above: Performed By: #### C BCDIF, CMP #### [place] [phone] ALT [Catalytic activity/Vol] 20 U/L Normal 0-45 [facility] Comment on above: Performed By: #### C BCDIF, CMP #### [place] [phone] Anion gap [Moles/Vol] 22 mmol/L High 9-18 [facility] Comment on above: Performed By: #### C BCDIF, CMP #### [place] [phone] AST [Catalytic activity/Vol] 19 U/L Normal 7-40 [facility] Comment on above: Performed By: #### C BCDIF, CMP #### [place] [phone] Bilirubin [Mass/Vol] 0.4 mg/dL Normal 0.2-1.3 [facility] Comment on above: Performed By: #### C BCDIF, CMP #### [place] [phone] Calcium [Mass/Vol] 8.5 mg/dL Normal 8.5-10.5 [facility] Comment on above: Performed By: #### C BCDIF, CMP #### [place] [phone] Chloride [Moles/Vol] 98 mmol/L Normal 98-110 [facility] Comment on above: Performed By: #### C BCDIF, CMP #### [place] [phone] CO2 [Moles/Vol] 12 mmol/L Low 23-32 [facility] Comment on above: Performed By: #### C BCDIF, CMP #### [place] [phone] Creatinine [Mass/Vol] 0.51 mg/dL Low 0.70-1.40 [facility] Comment on above: Performed By: #### C BCDIF, CMP #### [place] [phone] eGFR- Amer. >60 Normal >60 [facility] Comment on above: Performed By: #### C BCDIF, CMP #### [place] [phone] GFR/1.73 sq M predicted among non-blacks MDRD (S/P/Bld) [Vol rate/Area] mL/min/{1.73_m2} Normal >60 [facility] Comment on above: Performed By: #### C BCDIF, CMP #### [place] [phone] Glucose [Mass/Vol] 145 mg/dL High 65-100 [facility] Comment on above: Performed By: #### C BCDIF, CMP #### [place] [phone] Potassium [Moles/Vol] 3.2 mmol/L Low 3.5-5.0 [facility] Comment on above: Performed By: #### C BCDIF, CMP #### [place] [phone] Protein [Mass/Vol] 6.3 g/dL Normal 6.0-8.4 [facility] Comment on above: Performed By: #### C BCDIF, CMP #### [place] [phone] Sodium [Moles/Vol] 132 mmol/L Normal 132-148 [facility] Comment on above: Performed By: #### C BCDIF, CMP #### [place] [phone] Urea nitrogen [Mass/Vol] 4 mg/dL Low 8-25 [facility] Comment on above: Performed By: #### C BCDIF, CMP #### [place] [phone] Comprehensive Metabolic Pane samina 11-20-2019 Albumin [Mass/Vol] 2.9 g/dL Low 3.5-4.6 [facility] Comment on above: Performed By: #### L IPAS #### [facility] [address] [place] [address] ALP [Catalytic activity/Vol] 112 U/L Normal 40-130 [facility] Comment on above: Performed By: #### L IPAS #### [facility] [address] [place] [address] ALT [Catalytic activity/Vol] 13 U/L Normal 0-33 [facility] Comment on above: Performed By: #### L IPAS #### [facility] [address] [place] [address] Anion gap [Moles/Vol] 15 mmol/L Normal 9-15 [facility] Comment on above: Performed By: #### L IPAS #### [facility] [address] [place] [address] AST [Catalytic activity/Vol] 13 U/L Normal 0-35 [facility] Comment on above: Performed By: #### L IPAS #### [facility] [address] [place] [address] Bilirubin [Mass/Vol] 0.3 mg/dL Normal 0.2-0.7 [facility] Comment on above: Performed By: #### L IPAS #### [facility] [address] [place] [address] Calcium [Mass/Vol] 7.8 mg/dL Low 8.5-9.9 [facility] Comment on above: Performed By: #### L IPAS #### [facility] [address] [place] [address] Chloride [Moles/Vol] 102 mmol/L Normal 95-107 [facility] Comment on above: Performed By: #### L IPAS #### [facility] [address] [place] [address] CO2 [Moles/Vol] 16 mmol/L Low 20-31 [facility] Comment on above: Performed By: #### L IPAS #### [facility] [address] [place] [address] Creatinine [Mass/Vol] 0.41 mg/dL Low 0.50-0.90 [facility] Comment on above: Performed By: #### L IPAS #### [facility] [address] [place] [address] GFR/1.73 sq M predicted among blacks MDRD (S/P/Bld) [Vol rate/Area] mL/min/{1.73_m2} Normal >60 [facility] Comment on above: Result Comment: >60 mL/min/1.73m2 EGFR, calc. for ages 18 and older using the MDRD formula (not corrected for weight), is valid for stable renal function. Performed By: #### L IPAS #### [facility] [address] [place] [address] GFR/1.73 sq M.predicted MDRD (S/P/Bld) [Vol rate/Area] mL/min/{1.73_m2} Normal >60 [facility] Comment on above: Result Comment: >60 mL/min/1.73m2 EGFR, calc. for ages 18 and older using the MDRD formula (not corrected for weight), is valid for stable renal function. Performed By: #### L IPAS #### [facility] [address] [place] [address] Globulin (S) [Mass/Vol] 2.8 g/dL Normal 2.3-3.5 [facility] Comment on above: Performed By: #### L IPAS #### [facility] [address] [place] [address] Glucose [Mass/Vol] 123 mg/dL Critically high 70-99 [facility] Comment on above: Performed By: #### L IPAS #### [facility] [address] [place] [address] Potassium [Moles/Vol] 3.4 mmol/L Normal 3.4-4.9 [facility] Comment on above: Performed By: #### L IPAS #### [facility] [address] [place] [address] Protein [Mass/Vol] 5.7 g/dL Low 6.3-8.0 [facility] Comment on above: Performed By: #### L IPAS #### [facility] [address] [place] [address] Sodium [Moles/Vol] 133 mmol/L Low 135-144 [facility] Comment on above: Performed By: #### L IPAS #### [facility] [address] [place] [address] Urea nitrogen [Mass/Vol] 5 mg/dL Low 6-20 [facility] Comment on above: Performed By: #### L IPAS #### [facility] [address] [place] [address] Coronavirus 2019on 0 COVID 19 Result 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 [facility] Comment on above: Result Comment: This test was developed and its performance characteristics determined by [facility] [place]. This test has been authorized by FDA under an Emergency Use Authorization (EUA). This test has been validated in accordance with the FDA's Guidance Document Policy for Diagnostics Testing in Laboratories Certified to Perform High Complexity Testing under CLIA prior to Emergency use Authorization for Coronavirus Disease 2019 during the Public Health Emergency issued on October 23, 2019. Performed By: #### C BCDIF, CMP #### [place] [address] COVID 19 Source [employer] Nasopharyngeal Swab Normal [facility] Comment on above: Performed By: #### C BCDIF, CMP #### [place] [address] HISTORY PHYSICALon 0 HISTORY PHYSICAL HNO ID: [id number] Author: Skyla Claudio Service: Obstetrics Author Type: Physician Type: HANDP [...] Patient is here sent as transfer from [facility] where she presented with abdominal pain, N/V/D. RUQ ultrasound was unremarkable. She was suspected to be laboring and was given epidural with improvement of pain. She was given BMZ at [facility] on 11/18 PM. She had watery diarrhea which was sent for C.diff. She has a history of GI complaints and had workup including EGD and colonoscopy in 2018. She was admitted for similar GI complaints in August 2019 at [facility]. She also was noted to [...] counseling. She received Ativan x 2 at [facility]. GBS was collected at [facility]. She endorses suicidal ideations. She [...] Baseline Rate: 125 bpm (11/20/191829 : Nohemy Chairez) CECILE Blanc) Variability: Variability: Moderate (6-25 bpm) (11/20/191829 : [...] Assessment/Plan 34 year old EGA:36w0d. Transfer from [facility]. Preeclampsia with severe features based on BP. No [place]ICK[place], no hyperreflexia. Induction of labor. Will hold magnesium due to concern for possible respiratory compromise. Consider in active labor or PP. Respiratory complaints with GI complaints, ill appearing. Influenza negative. COVID-19 testing in process. Contact and droplet precautions plus eyewear. GDMA1. Received one dose BMZ at [facility]-- will likely reflect in elevated [...] Anti-emetics, IVF hydration, analgesia. C.diff pending from [facility]. Will evaluate further after delivery if continued symptoms. IOL-- Dating c/w 9 week ultrasound. FHR is category 1 (no variable appreciated). No recent US for growth, clinically 7# but limited d/t patient body habitus. GBS unknown-- specimen collected at [facility]. PCN for GBS prophylaxis. Patient [...] 2019 TIME: 4:44 PM PAGER/CONTACT #: [facility] POCT Glucoseon 11-20-2019 Glucose [Mass/Vol] 128 mg/dL Critically high 60-115 [facility] Comment on above: Performed By: #### L DH #### [facility] [address] [place] [address] POC Performed on ACCU-CHEK [facility] Comment on above: Performed By: #### L DH #### [facility] [address] [place] [address] Glucose [Mass/Vol] 122 mg/dL Critically high 60-115 [facility] Comment on above: Performed By: #### P GLU #### [facility] [address] [place] [address] POC Performed on ACCU-CHEK [facility] Comment on above: Performed By: #### P GLU #### [facility] [address] [place] [address] Glucose [Mass/Vol] 126 mg/dL Critically high 60-115 M [facility] Comment on above: Performed By: #### F IBR #### [facility] [address] [facility] [address] POC Performed on ACCU-CHEK Normal [facility] Comment on above: Performed By: #### F IBR #### [facility] [address] [facility] [address] Protein/Creatinine Ratioon 0 11-20-2019 Creatinine,Urine,Ran 53.2 mg/dL Normal 20-300 [facility] Comment on above: Performed By: #### P RATIO #### [phone] Protein (U) [Mass/Vol] 47 mg/dL High 0-20 [facility] Comment on above: Performed By: #### P RATIO #### [place] [phone] Protein/Creatinine Ratio 0.9 High <0.2 [facility] Comment on above: Performed By: #### P RATIO #### [place] [phone] Rapid PCR FLU/RSVon 11-20-19 20 Influenza A PCR Negative [facility] Comment on above: Performed By: #### F LRSV #### [address] Influenza B PCR Negative [facility] Comment on above: Performed By: #### F LRSV #### [place] [phone] RSV PCR Negative [facility] Comment on above: Performed By: #### F LRSV #### [address] Specimen source Nom (Unsp spec) Nasopharyngeal Swab [facility] Comment on above: Performed By: #### F LRSV #### [phone] Type and Scr,Prenatlon 11-19 ABO/RH(D) Positive [facility] Comment on above: Performed By: #### C BCDIF, CMP #### [facility] [address] [place] [address] Urinalysis, reflex to micros copicon 11-20-2019 Bilirubin Ql (U) Negative Normal Negative [facility] Comment on above: Performed By: #### L IPAS #### [facility] [address] [place] [address] Clarity (U) Clear Normal Clear [facility] Comment on above: Performed By: #### L IPAS #### [facility] [address] [place] [address] Color (U) Yellow Normal Straw/Nicholas [facility] Comment on above: Performed By: #### L IPAS #### [facility] [address] [place] [address] Glucose Ql (U) Negative Normal Negative [facility] Comment on above: Performed By: #### L IPAS #### [facility] [address] [place] [address] Hemoglobin Ql (U) Negative Normal Negative [facility] Comment on above: Performed By: #### L IPAS #### [facility] [address] [place] [address] Ketones Ql (U) >=80 Abnormal Negative [facility] Comment on above: Performed By: #### L IPAS #### [facility] [address] [place] [address] Leukocyte esterase Test strip Ql (U) Negative Normal Negative [facility] Comment on above: Performed By: #### L IPAS #### [facility] [address] [place] [address] Nitrite Ql (U) Negative Normal Negative [facility] Comment on above: Performed By: #### L IPAS #### [facility] [address] [place] [address] pH (U) 6.0 [pH] Normal 5.0-9.0 [facility] Comment on above: Performed By: #### L IPAS #### [facility] [address] [place] [address] Protein Ql (U) TRACE Abnormal Negative [facility] Comment on above: Performed By: #### L IPAS #### [facility] [address] [place] [address] Specific gravity (U) [Rel density] 1.009 Normal 1.005-1.03 [facility] Comment on above: Performed By: #### L IPAS #### [facility] [address] [place] [address] Urobilinogen Qn (U) 0.2 {Ace'U}/dL Normal < 2.0 [facility] Comment on above: Performed By: #### L IPAS #### [facility] [address] [place] [address] Amylaseon 11-19-2019 Amylase [Catalytic activity/Vol] 57 U/L Normal 22-93 [facility] Comment on above: Performed By: #### F IBR #### [facility] [address] [place] [address] CBC With Platelet and Differ entialon 11-19-2019 Slide Review see below Normal [facility] Comment on above: Result Comment: Slid e review agrees with reported results Performed By: #### C BCWD #### [facility] [address] [place] [address] Basophils (Bld) [#/Vol] 0.2 10*3/uL Normal 0.0-0.2 [facility] Comment on above: Performed By: #### C BCWD #### [facility] [address] [place] [address] Basophils/100 WBC (Bld) 1.0 % Normal [facility] Comment on above: Performed By: #### C BCWD #### [facility] [address] [place] [address] Eosinophils (Bld) [#/Vol] 0.0 10*3/uL Normal 0.0-0.7 [facility] Comment on above: Performed By: #### C BCWD #### [facility] [address] [place] [address] Eosinophils/100 WBC (Bld) 0.1 % Normal [facility] Comment on above: Performed By: #### C BCWD #### [facility] [address] [place] [address] Erythrocyte distribution width (RBC) [Ratio] 13.2 % Normal 11.5-14.5 [facility] Comment on above: Performed By: #### C BCWD #### [facility] [facility] [address] [place] [address] Hematocrit (Bld) [Volume fraction] 37.6 % Normal 37.0-47.0 [facility] Comment on above: Performed By: #### C BCWD #### [facility] [address] [place] [address] Hemoglobin (Bld) [Mass/Vol] 13.0 g/dL Normal 12.0-16.0 [facility] Comment on above: Performed By: #### C BCWD #### [facility] [address] [place] [address] Lymphocytes (Bld) [#/Vol] 1.1 10*3/uL Normal 1.0-4.8 [facility] Comment on above: Performed By: #### C BCWD #### [facility] [address] [place] [address] Lymphocytes/100 WBC (Bld) 6.3 % Normal [facility] Comment on above: Performed By: #### C BCWD #### [facility] [address] [place] [address] MCH (RBC) [Entitic mass] 30.8 pg Normal 27.0-31.3 [facility] Comment on above: Performed By: #### C BCWD #### [facility] [address] [place] [address] MCHC (RBC) [Mass/Vol] 34.5 % Normal 33.0-37.0 [facility] Comment on above: Performed By: #### C BCWD #### [facility] [address] [place] [address] MCV (RBC) [Entitic vol] 89.1 fL Normal 82.0-100.0 [facility] Comment on above: Performed By: #### C BCWD #### [facility] [address] [place] [address] Monocytes (Bld) [#/Vol] 0.5 10*3/uL Normal 0.2-0.8 [facility] Comment on above: Performed By: #### C BCWD #### [facility] [address] [place] [address] Monocytes/100 WBC (Bld) 2.7 % Normal [facility] Comment on above: Performed By: #### C BCWD #### [facility] [address] [place] [address] Neutrophils (Bld) [#/Vol] 15.5 10*3/uL Critically high 1.4-6.5 [facility] Comment on above: Performed By: #### C BCWD #### [facility] [address] [place] [address] Neutrophils/100 WBC (Bld) 89.9 % Normal [facility] Comment on above: Performed By: #### C BCWD #### [facility] [address] [place] [address] Platelets (Bld) [#/Vol] 272 10*3/uL Normal 130-400 [facility] Comment on above: Performed By: #### C BCWD #### [facility] [address] [place] [address] RBC (Bld) [#/Vol] 4.22 10*6/uL Normal 4.20-5.40 [facility] Comment on above: Performed By: #### C BCWD #### [facility] [address] [place] [address] WBC (Bld) [#/Vol] 17.2 10*3/uL Critically high 4.8-10.8 [facility] Comment on above: Performed By: #### C BCWD #### [facility] [address] [place] [address] Comprehensive Metabolic Pane l reflex Mgon 11-19-2019 Albumin [Mass/Vol] 3.7 g/dL Normal 3.5-4.6 [facility] Comment on above: Performed By: #### L IPAS #### [facility] [address] [place] [address] ALP [Catalytic activity/Vol] 133 U/L Critically high 40-130 [facility] Comment on above: Result Comment: Spec imen hemolysis has exceeded the interference as defined by Mik. Value may be falsely decreased. Suggest recollection if clinically indicated. Performed By: #### L IPAS #### [facility] [address] [place] [address] ALT [Catalytic activity/Vol] 18 U/L Normal 0-33 [facility] Comment on above: Result Comment: Spec imen hemolysis has exceeded the interference as defined by Mik. Result may be affected. Suggest recollection if clinically indicated. Performed By: #### L IPAS #### [facility] [address] [place] [address] Anion gap [Moles/Vol] 19 mmol/L Critically high 9-15 [facility] Comment on above: Performed By: #### L IPAS #### [facility] [address] [place] [address] AST [Catalytic activity/Vol] 31 U/L Normal 0-35 [facility] Comment on above: Result Comment: Spec imen hemolysis has exceeded the interference as defined by Mik. Value may be falsely increased. Suggest recollection if clinically indicated. Performed By: #### L IPAS #### [facility] [address] [place] [address] Bilirubin [Mass/Vol] 0.3 mg/dL Normal 0.2-0.7 [facility] Comment on above: Performed By: #### L IPAS #### [facility] [address] [place] [address] Calcium [Mass/Vol] 9.0 mg/dL Normal 8.5-9.9 [facility] Comment on above: Performed By: #### L IPAS #### [facility] [address] [place] [address] Chloride [Moles/Vol] 96 mmol/L Normal 95-107 [facility] Comment on above: Performed By: #### L IPAS #### [facility] [address] [place] [address] CO2 [Moles/Vol] 18 mmol/L Low 20-31 [facility] Comment on above: Performed By: #### L IPAS #### [facility] [address] [place] [address] Creatinine [Mass/Vol] 0.39 mg/dL Low 0.50-0.90 [facility] Comment on above: Performed By: #### L IPAS #### [facility] [address] [place] [address] GFR/1.73 sq M predicted among blacks MDRD (S/P/Bld) [Vol rate/Area] mL/min/{1.73_m2} Normal >60 [facility] Comment on above: Result Comment: >60 mL/min/1.73m2 EGFR, calc. for ages 18 and older using the MDRD formula (not corrected for weight), is valid for stable renal function. Performed By: #### L IPAS #### [facility] [address] [place] [address] GFR/1.73 sq M.predicted MDRD (S/P/Bld) [Vol rate/Area] mL/min/{1.73_m2} Normal >60 [facility] Comment on above: Result Comment: >60 mL/min/1.73m2 EGFR, calc. for ages 18 and older using the MDRD formula (not corrected for weight), is valid for stable renal function. Performed By: #### L IPAS #### [facility] [address] [place] [address] Globulin (S) [Mass/Vol] 3.2 g/dL Normal 2.3-3.5 [facility] Comment on above: Performed By: #### L IPAS #### [facility] [address] [place] [address] Glucose [Mass/Vol] 196 mg/dL Critically high 70-99 [facility] Comment on above: Performed By: #### L IPAS #### [facility] [address] [place] [address] Potassium reflex Mg 4.1 mEq/L Normal 3.4-4.9 [facility] Comment on above: Performed By: #### L IPAS #### [facility] [address] [place] [address] Protein [Mass/Vol] 6.9 g/dL Normal 6.3-8.0 [facility] Comment on above: Performed By: #### L IPAS #### [facility] [address] [place] [address] Sodium [Moles/Vol] 133 mmol/L Low 135-144 [facility] Comment on above: Performed By: #### L IPAS #### [facility] [address] [place] [address] Urea nitrogen [Mass/Vol] 6 mg/dL Normal 6-20 [facility] Comment on above: Performed By: #### L IPAS #### [facility] [address] [place] [address] D-Dimer Quanton 11-19-2019 D-Dimer Quant 0.84 mg/L FEU Critically high 0.00-0.50 [facility] Comment on above: Order Comment: CALL Maguire [facility] tel. [phone],dimer results called to and read back by Christine neal, 11/19/2019 19:59,by MAGGIE Performed By: #### F IBR #### [facility] [address] [place] [address] Fibrinogenon 11-19-2019 Fibrinogen 615.0 mg/dL Critically high 235.0-507. [facility] Comment on above: Performed By: #### F IBR #### [facility] [address] [place] [address] Lactate Dehydrogenaseon 10-24 LDH [Catalytic activity/Vol] 429 U/L Critically high 135-214 [facility] Comment on above: Result Comment: Spec imen hemolysis has exceeded the interference as defined by Mik. Value may be falsely increased. Suggest recollection if clinically indicated. Performed By: #### L DH #### [facility] [address] [place] [address] Lipaseon 11-19-2019 Lipase [Catalytic activity/Vol] 35 U/L Normal 12-95 [facility] Comment on above: Performed By: #### L IPAS #### [facility] [address] [place] [address] Prothrombin Timeon 0 INR Coag (PPP) [Relative time] 0.9 {INR} Normal [facility] Comment on above: Performed By: #### F IBR #### [facility] [address] [facility] [address] [place] [address] PT Coag (PPP) [Time] 12.1 s Low 12.3-14.9 [facility] Comment on above: Performed By: #### F IBR #### [facility] [address] [place] [address] Type and Screen Capture 3 sc rn cellon 11-19-2019 Type and Screen Capture 3 scrn cell PATIENT: JAY Malone LOC: [facility],0320,01 BILL# : [id number] : 1985 SEX: F ORDERED BY: KRISTIAN BIRD ORDERED : 11/19/2019 18:24 COLLECTED: 11/19/2019 18:30 ORDER : [id number] RECEIVED : 11/19/2019 18:42 TEST NAME RESULT UNITS RANGES ABN FL ST ABORH Capture A POS F Antibody 3 Cell Scrn Captu NEG F @11/19/19 20:52 by MAGGIE: @11/20/19 09:22 by GILA: Repeated absc with a different lot of RS-3 strips- confirmed absc negative. LMB Normal [facility] Comment on above: Performed By: #### L IPAS #### [facility] [address] [place] [address] UR Drugs of Abuse Panelon Drug Screen Comment see below Normal [facility] Comment on above: Result Comment: This method is a screening test to detect only these drug classes as part of a medical workup. Confirmatory testing by another method should be ordered if clinically indicated. Performed By: #### F IBR #### [facility] [address] [place] [address] UR Amphetamines Screen Negative Normal Negative < [facility] Comment on above: Performed By: #### F IBR #### [facility] [address] [place] [address] UR Barbiturates Screen Negative Normal Negative < [facility] Comment on above: Performed By: #### F IBR #### [facility] [address] [place] [address] UR Benzo Screen Negative Normal Negative < [facility] Comment on above: Performed By: #### F IBR #### [facility] [address] [place] [address] UR Cannabinoids Screen Negative Normal Negative < [facility] Comment on above: Performed By: #### F IBR #### [facility] [address] [place] [address] UR Cocaine Screen Negative Normal Negative < [facility] Comment on above: Performed By: #### F IBR #### [facility] [address] [place] [address] UR Methadone Screen Negative Normal Negative < [facility] Comment on above: Result Comment: Effe ctive: 05/03/19 New Test for Qualitative Drug Screen. Performed By: #### F IBR #### [facility] [address] [place] [address] UR Opiates Screen Negative Normal Negative < [facility] Comment on above: Performed By: #### F IBR #### [facility] [address] [place] [address] UR Oxycodone Screen Negative Normal Negative < [facility] Comment on above: Result Comment: Effe ctive: 05/03/19 New Test for Qualitative Drug Screen. Performed By: #### F IBR #### [facility] [address] [place] [address] UR PCP Screen Negative Normal Negative < [facility] Comment on above: Performed By: #### F IBR #### [facility] [address] [place] [address] UR Propoxyphene Screen Negative Normal Negative < [facility] Comment on above: Result Comment: Effe ctive: 05/03/19 New Test for Qualitative Drug Screen. Performed By: #### F IBR #### [facility] [address] [place] [address] US ABDOMEN LIMITEDon 020 US ABDOMEN LIMITED [...] Luis Oviedo MD 11/19/19 Final result Normal [facility] US BIOPHYS PROFILE W N ON [...] Luis Oviedo MD 11/19/19 Final result Normal [facility] Urinalysis, reflex to micros copicon 11-19-2019 Bilirubin Ql (U) Negative Normal Negative [facility] Comment on above: Performed By: #### F IBR #### [facility] [address] [place] [address] Clarity (U) Clear Normal Clear [facility] Comment on above: Performed By: #### F IBR #### [facility] [address] [facility] [address] Color (U) Yellow Normal Straw/Nicholas [facility] Comment on above: Performed By: #### F IBR #### [facility] [address] [place] [address] Glucose Ql (U) >=1000 Abnormal Negative [facility] Comment on above: Performed By: #### F IBR #### [facility] [address] [place] [address] Hemoglobin Ql (U) TRACE Abnormal Negative [facility] Comment on above: Performed By: #### F IBR #### [facility] [address] [place] [address] Ketones Ql (U) >=80 Abnormal Negative [facility] Comment on above: Performed By: #### F IBR #### [facility] [address] [place] [address] Leukocyte esterase Test strip Ql (U) Negative Normal Negative [facility] Comment on above: Performed By: #### F IBR #### [facility] [address] [place] [address] Nitrite Ql (U) Negative Normal Negative [facility] Comment on above: Performed By: #### F IBR #### [facility] [address] [place] [address] pH (U) 5.0 [pH] Normal 5.0-9.0 [facility] Comment on above: Performed By: #### F IBR #### [facility] [address] [place] [address] Protein Ql (U) 30 mg/dL Abnormal Negative [facility] Comment on above: Performed By: #### F IBR #### [facility] [address] [place] [address] Specific gravity (U) [Rel density] 1.023 Normal 1.005-1.03 [facility] Comment on above: Performed By: #### F IBR #### [facility] [address] [place] [address] Urobilinogen Qn (U) 0.2 {Ace'U}/dL Normal < 2.0 [facility] Comment on above: Performed By: #### F IBR #### [facility] [address] [place] [address] Urine Microscopicon 11-19-19 20 Bacteria LM.HPF (Urine sed) [#/Area] Negative Normal Negative [facility] Comment on above: Performed By: #### U MAKENNA #### [facility] [address] [place] [address] RBC (U) [#/Vol] 6-10 Abnormal 0-5 [facility] Comment on above: Performed By: #### U MAKENNA #### [facility] [address] [place] [address] Urine Epithelial Cells Auto 6-10 Normal 0-5 [facility] Comment on above: Performed By: #### U MAKENNA #### [facility] [address] [place] [address] Urine Hyaline Casts Auto 1-3 Normal 0-5 [facility] Comment on above: Performed By: #### U MAKENNA #### [facility] [address] [place] [address] Urine WBC Auto 0-2 Normal 0-5 [facility] Comment on above: Performed By: #### U MAKENNA #### [facility] [address] [place] [address] Amylaseon 08-31-2019 Amylase [Catalytic activity/Vol] 64 U/L Normal 22-93 [facility] Comment on above: Performed By: #### F IBR #### [facility] [address] [place] [address] CBC With Platelet and Differ entialon 08-31-2019 Platelet Slide Review Normal Normal [facility] Comment on above: Performed By: #### F IBR #### [facility] [address] [place] [address] Basophils (Bld) [#/Vol] 0.0 10*3/uL Normal 0.0-0.2 [facility] Comment on above: Performed By: #### F IBR #### [facility] [address] [place] [address] Basophils/100 WBC (Bld) 0.3 % Normal [facility] Comment on above: Performed By: #### F IBR #### [facility] [address] [place] [address] Eosinophils (Bld) [#/Vol] 0.0 10*3/uL Normal 0.0-0.7 [facility] Comment on above: Performed By: #### F IBR #### [facility] [address] [place] [address] Eosinophils/100 WBC (Bld) 0.0 % Normal [facility] Comment on above: Performed By: #### F IBR #### [facility] [address] [place] [address] Erythrocyte distribution width (RBC) [Ratio] 13.2 % Normal 11.5-14.5 [facility] Comment on above: Performed By: #### F IBR #### [facility] [address] [place] [address] Hematocrit (Bld) [Volume fraction] 39.2 % Normal 37.0-47.0 [facility] Comment on above: Performed By: #### F IBR #### [facility] [address] [place] [address] Hemoglobin (Bld) [Mass/Vol] 13.5 g/dL Normal 12.0-16.0 [facility] Comment on above: Performed By: #### F IBR #### [facility] [address] [place] [address] Lymphocytes (Bld) [#/Vol] 1.3 10*3/uL Normal 1.0-4.8 [facility] Comment on above: Performed By: #### F IBR #### [facility] [address] [place] [address] Lymphocytes/100 WBC (Bld) 7.1 % Normal [facility] Comment on above: Performed By: #### F IBR #### [facility] [address] [place] [address] MCH (RBC) [Entitic mass] 31.5 pg Critically high 27.0-31.3 [facility] Comment on above: Performed By: #### F IBR #### [facility] [address] [place] [address] MCHC (RBC) [Mass/Vol] 34.5 % Normal 33.0-37.0 [facility] Comment on above: Performed By: #### F IBR #### [facility] [address] [place] [address] MCV (RBC) [Entitic vol] 91.3 fL Normal 82.0-100.0 [facility] Comment on above: Performed By: #### F IBR #### [facility] [address] [place] [address] Monocytes (Bld) [#/Vol] 0.6 10*3/uL Normal 0.2-0.8 [facility] Comment on above: Performed By: #### F IBR #### [facility] [address] [place] [address] Monocytes/100 WBC (Bld) 3.1 % Normal [facility] Comment on above: Performed By: #### F IBR #### [facility] [address] [place] [address] Neutrophils (Bld) [#/Vol] 16.2 10*3/uL Critically high 1.4-6.5 [facility] Comment on above: Performed By: #### F IBR #### [facility] [address] [place] [address] Neutrophils/100 WBC (Bld) 89.5 % Normal [facility] Comment on above: Performed By: #### F IBR #### [facility] [address] [place] [address] Platelets (Bld) [#/Vol] 305 10*3/uL Normal 130-400 [facility] Comment on above: Performed By: #### F IBR #### [facility] [address] [place] [address] RBC (Bld) [#/Vol] 4.29 10*6/uL Normal 4.20-5.40 [facility] Comment on above: Performed By: #### F IBR #### [facility] [address] [place] [address] WBC (Bld) [#/Vol] 18.1 10*3/uL Critically high 4.8-10.8 [facility] Comment on above: Performed By: #### F IBR #### [facility] [address] [place] [address] Comprehensive Metabolic Pane samina 08-31-2019 Albumin [Mass/Vol] 3.9 g/dL Normal 3.5-4.6 [facility] Comment on above: Performed By: #### C MP #### [facility] [address] [place] [address] ALP [Catalytic activity/Vol] 64 U/L Normal 40-130 [facility] Comment on above: Performed By: #### C MP #### [facility] [address] [place] [address] ALT [Catalytic activity/Vol] 8 U/L Normal 0-33 [facility] Comment on above: Performed By: #### C MP #### [facility] [address] [place] [address] Anion gap [Moles/Vol] 18 mmol/L Critically high 9-15 [facility] Comment on above: Performed By: #### C MP #### [facility] [address] [place] [address] AST [Catalytic activity/Vol] 11 U/L Normal 0-35 [facility] Comment on above: Performed By: #### C MP #### [facility] [address] [place] [address] Bilirubin [Mass/Vol] mg/dL Normal 0.2-0.7 [facility] Comment on above: Performed By: #### C MP #### [facility] [address] [place] [address] Calcium [Mass/Vol] 8.8 mg/dL Normal 8.5-9.9 [facility] Comment on above: Performed By: #### C MP #### [facility] [address] [place] [address] Chloride [Moles/Vol] 99 mmol/L Normal 95-107 [facility] Comment on above: Performed By: #### C MP #### [facility] [address] [place] [address] CO2 [Moles/Vol] 21 mmol/L Normal 20-31 [facility] Comment on above: Performed By: #### C MP #### [facility] [address] [place] [address] Creatinine [Mass/Vol] 0.52 mg/dL Normal 0.50-0.90 [facility] Comment on above: Performed By: #### C MP #### [facility] [address] [place] [address] GFR/1.73 sq M predicted among blacks MDRD (S/P/Bld) [Vol rate/Area] mL/min/{1.73_m2} Normal >60 [facility] Comment on above: Result Comment: >60 mL/min/1.73m2 EGFR, calc. for ages 18 and older using the MDRD formula (not corrected for weight), is valid for stable renal function. Performed By: #### C MP #### [facility] [address] [place] [address] GFR/1.73 sq M.predicted MDRD (S/P/Bld) [Vol rate/Area] mL/min/{1.73_m2} Normal >60 [facility] Comment on above: Result Comment: >60 mL/min/1.73m2 EGFR, calc. for ages 18 and older using the MDRD formula (not corrected for weight), is valid for stable renal function. Performed By: #### C MP #### [facility] [address] [place] [address] Globulin (S) [Mass/Vol] 2.9 g/dL Normal 2.3-3.5 [facility] Comment on above: Performed By: #### C MP #### [facility] [address] [place] [address] Glucose [Mass/Vol] 162 mg/dL Critically high 70-99 [facility] Comment on above: Performed By: #### C MP #### [facility] [address] [place] [address] Potassium [Moles/Vol] 3.4 mmol/L Normal 3.4-4.9 [facility] Comment on above: Performed By: #### C MP #### [facility] [address] [place] [address] Protein [Mass/Vol] 6.8 g/dL Normal 6.3-8.0 [facility] Comment on above: Performed By: #### C MP #### [facility] [address] [place] [address] Sodium [Moles/Vol] 138 mmol/L Normal 135-144 [facility] Comment on above: Performed By: #### C MP #### [facility] [address] [place] [address] Urea nitrogen [Mass/Vol] 7 mg/dL Normal 6-20 [facility] Comment on above: Performed By: #### C MP #### [facility] [address] [place] [address] Lipaseon 08-31-2019 Lipase [Catalytic activity/Vol] 21 U/L Normal 12-95 [facility] Comment on above: Performed By: #### F IBR #### [facility] [address] [place] [address] US ABDOMEN LIMITEDon 020 US ABDOMEN LIMITED [...] Jesusita Turner MD 08/31/19 Final result Normal [facility] CBC With Platelet and Differ entialon 08-23-2019 Basophils (Bld) [#/Vol] 0.1 10*3/uL Normal 0.0-0.2 [facility] Comment on above: Performed By: #### L DH #### [facility] [address] [place] [address] Basophils/100 WBC (Bld) 1.1 % Normal [facility] Comment on above: Performed By: #### L DH #### [facility] [address] [place] [address] Eosinophils (Bld) [#/Vol] 0.1 10*3/uL Normal 0.0-0.7 [facility] Comment on above: Performed By: #### L DH #### [facility] [address] [place] [address] Eosinophils/100 WBC (Bld) 0.5 % Normal [facility] Comment on above: Performed By: #### L DH #### [facility] [address] [place] [address] Erythrocyte distribution width (RBC) [Ratio] 12.7 % Normal 11.5-14.5 [facility] Comment on above: Performed By: #### L DH #### [facility] [address] [place] [address] Hematocrit (Bld) [Volume fraction] 36.1 % Low 37.0-47.0 [facility] Comment on above: Performed By: #### L DH #### [facility] [address] [place] [address] Hemoglobin (Bld) [Mass/Vol] 12.4 g/dL Normal 12.0-16.0 [facility] Comment on above: Performed By: #### L DH #### [facility] [address] [place] [address] Lymphocytes (Bld) [#/Vol] 2.2 10*3/uL Normal 1.0-4.8 [facility] Comment on above: Performed By: #### L DH #### [facility] [address] [place] [address] Lymphocytes/100 WBC (Bld) 21.2 % Normal [facility] Comment on above: Performed By: #### L DH #### [facility] [address] [place] [address] MCH (RBC) [Entitic mass] 30.9 pg Normal 27.0-31.3 [facility] Comment on above: Performed By: #### L DH #### [facility] [address] [place] [address] MCHC (RBC) [Mass/Vol] 34.4 % Normal 33.0-37.0 [facility] Comment on above: Performed By: #### L DH #### [facility] [address] [place] [address] MCV (RBC) [Entitic vol] 89.8 fL Normal 82.0-100.0 M [facility] Comment on above: Performed By: #### L DH #### [facility] [address] [place] [address] Monocytes (Bld) [#/Vol] 0.7 10*3/uL Normal 0.2-0.8 [facility] Comment on above: Performed By: #### L DH #### [facility] [address] [place] [address] Monocytes/100 WBC (Bld) 6.7 % Normal [facility] Comment on above: Performed By: #### L DH #### [facility] [address] [place] [address] Neutrophils (Bld) [#/Vol] 7.4 10*3/uL Critically high 1.4-6.5 [facility] Comment on above: Performed By: #### L DH #### [facility] [address] [place] [address] Neutrophils/100 WBC (Bld) 70.5 % Normal [facility] Comment on above: Performed By: #### L DH #### [facility] [address] [place] [address] Platelets (Bld) [#/Vol] 304 10*3/uL Normal 130-400 [facility] Comment on above: Performed By: #### L DH #### [facility] [address] [place] [address] RBC (Bld) [#/Vol] 4.03 10*6/uL Low 4.20-5.40 [facility] Comment on above: Performed By: #### L DH #### [facility] [address] [place] [address] WBC (Bld) [#/Vol] 10.5 10*3/uL Normal 4.8-10.8 [facility] Comment on above: Performed By: #### L DH #### [facility] [address] [place] [address] Comprehensive Metabolic Pane samina 08-23-2019 Albumin [Mass/Vol] 3.7 g/dL Normal 3.5-4.6 [facility] Comment on above: Performed By: #### L DH #### [facility] [address] [place] [address] ALP [Catalytic activity/Vol] 53 U/L Normal 40-130 [facility] Comment on above: Performed By: #### L DH #### [facility] [address] [place] [address] ALT [Catalytic activity/Vol] 8 U/L Normal 0-33 [facility] Comment on above: Performed By: #### L DH #### [facility] [address] [place] [address] Anion gap [Moles/Vol] 12 mmol/L Normal 9-15 [facility] Comment on above: Performed By: #### L DH #### [facility] [address] [place] [address] AST [Catalytic activity/Vol] 9 U/L Normal 0-35 [facility] Comment on above: Performed By: #### L DH #### [facility] [address] [place] [address] Bilirubin [Mass/Vol] 0.3 mg/dL Normal 0.2-0.7 [facility] Comment on above: Performed By: #### L DH #### [facility] [address] [place] [address] Calcium [Mass/Vol] 9.0 mg/dL Normal 8.5-9.9 [facility] Comment on above: Performed By: #### L DH #### [facility] [address] [place] [address] Chloride [Moles/Vol] 103 mmol/L Normal 95-107 [facility] Comment on above: Performed By: #### L DH #### [facility] [address] [place] [address] CO2 [Moles/Vol] 22 mmol/L Normal 20-31 [facility] Comment on above: Performed By: #### L DH #### [facility] [address] [place] [address] Creatinine [Mass/Vol] 0.39 mg/dL Low 0.50-0.90 [facility] Comment on above: Performed By: #### L DH #### [facility] [address] [place] [address] GFR/1.73 sq M predicted among blacks MDRD (S/P/Bld) [Vol rate/Area] mL/min/{1.73_m2} Normal >60 [facility] Comment on above: Result Comment: >60 mL/min/1.73m2 EGFR, calc. for ages 18 and older using the MDRD formula (not corrected for weight), is valid for stable renal function. Performed By: #### L DH #### [facility] [address] [place] [address] GFR/1.73 sq M.predicted MDRD (S/P/Bld) [Vol rate/Area] mL/min/{1.73_m2} Normal >60 [facility] Comment on above: Result Comment: >60 mL/min/1.73m2 EGFR, calc. for ages 18 and older using the MDRD formula (not corrected for weight), is valid for stable renal function. Performed By: #### L #### [facility] [address] [place] [address] Globulin (S) [Mass/Vol] 2.7 g/dL Normal 2.3-3.5 [facility] Comment on above: Performed By: #### L DH #### [facility] [address] [place] [address] Glucose [Mass/Vol] 90 mg/dL Normal 70-99 [facility] Comment on above: Performed By: #### L DH #### [facility] [address] [place] [address] Potassium [Moles/Vol] 3.7 mmol/L Normal 3.4-4.9 [facility] Comment on above: Performed By: #### L DH #### [facility] [address] [place] [address] Protein [Mass/Vol] 6.4 g/dL Normal 6.3-8.0 [facility] Comment on above: Performed By: #### L DH #### [facility] [address] [place] [address] Sodium [Moles/Vol] 137 mmol/L Normal 135-144 [facility] Comment on above: Performed By: #### L DH #### [facility] [address] [place] [address] Urea nitrogen [Mass/Vol] 5 mg/dL Low 6-20 [facility] Comment on above: Performed By: #### L DH #### [facility] [address] [place] [address] Culture, Urineon 08-23-2019 Culture, Urine ORDERED BY: UMESH BOLES SOURCE: Urine Clean Catch COLLECTED: 08/23/19 17:15 ANTIBIOTICS AT IDANIA.: RECEIVED : 08/23/19 18:14 Culture, Urine FINAL 08/25/19 08:20 No growth 24 hours Normal [facility] Comment on above: Performed By: #### F IBR #### [facility] [address] [place] [address] Influenza A and Bon 08-23-20 19 Influenza A by PCR Negative Normal [facility] Comment on above: Result Comment: Effe ctive 04/15/19 Please note methodology and/or reference ranges have changed. Performed By: #### L IPAS #### [facility] [address] [place] [address] Influenza B by PCR Negative Normal [facility] Comment on above: Result Comment: Effe ctive 04/15/19 Please note methodology and/or reference ranges have changed. Performed By: #### L IPAS #### [facility] [address] [place] [address] Magnesiumon 08-23-2019 Magnesium [Mass/Vol] 1.6 mg/dL Low 1.7-2.4 [facility] Comment on above: Performed By: #### M G #### [facility] [address] [place] [address] Urinalysis, reflex to cultur margarita 08-23-2019 Bilirubin Ql (U) Negative Normal Negative [facility] Comment on above: Performed By: #### U AR #### [facility] [address] [place] [address] Clarity (U) TURBID Abnormal Clear [facility] Comment on above: Performed By: #### U AR #### [facility] [address] [place] [address] Color (U) DARK YELLOW Abnormal Straw/Nicholas [facility] Comment on above: Performed By: #### U AR #### [facility] [address] [place] [address] Glucose Ql (U) Negative Normal Negative [facility] Comment on above: Performed By: #### U AR #### [facility] [address] [place] [address] Hemoglobin Ql (U) Negative Normal Negative [facility] Comment on above: Performed By: #### U AR #### [facility] [address] [place] [address] Ketones Ql (U) 15 mg/dL Abnormal Negative [facility] Comment on above: Performed By: #### U AR #### [facility] [address] [place] [address] Leukocyte esterase Test strip Ql (U) SMALL Abnormal Negative [facility] Comment on above: Performed By: #### U AR #### [facility] [address] [place] [address] Nitrite Ql (U) Negative Normal Negative [facility] Comment on above: Performed By: #### U AR #### [facility] [address] [place] [address] pH (U) 5.5 [pH] Normal 5.0-9.0 [facility] Comment on above: Performed By: #### U AR #### [facility] [address] [place] [address] Protein Ql (U) TRACE Abnormal Negative [facility] Comment on above: Performed By: #### U AR #### [facility] [address] [place] [address] Specific gravity (U) [Rel density] 1.020 Normal 1.005-1.03 [facility] Comment on above: Performed By: #### U AR #### [facility] [address] [place] [address] Urine Reflexed to Culture YES Normal [facility] Comment on above: Performed By: #### U AR #### [facility] [address] [place] [address] Urobilinogen Qn (U) 0.2 {Ace'U}/dL Normal < 2.0 [facility] Comment on above: Performed By: #### U AR #### [facility] [address] [place] [address] Urine Microscopicon 12-30-20 19 Bacteria LM.HPF (Urine sed) [#/Area] MODERATE Abnormal [facility] Comment on above: Performed By: #### U MAKENNA #### [facility] [address] [place] [address] RBC (U) [#/Vol] 3-5 Abnormal 0-5 [facility] Comment on above: Performed By: #### U MAKENNA #### [facility] [address] [place] [address] Urine Epithelial Cells Auto >100 Critically high 0-5 [facility] Comment on above: Performed By: #### U MAKENNA #### [facility] [address] [place] [address] Urine Hyaline Casts Auto 10-20 Normal 0-5 [facility] Comment on above: Performed By: #### U MAKENNA #### [facility] [address] [place] [address] Urine WBC Auto 10-20 Abnormal 0-5 [facility] Comment on above: Performed By: #### U MAKENNA #### [facility] [address] [place] [address] Provider Note - ED v2on 12-2 Provider [...] Description:CARPAL TUNNEL SURGERY RIGHT Description:D & 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 Has your cough lasted longer than 2 weeksno Admission Risk Screen: Significant IndicatorsComplete CAGE: CAGE: Is this an injured patient at a Trauma Center ([facility]/[place]/[facility]/[place]): no Electronic Signatures: Amna Parekh (STAFF N) (Signed 20-Aug-2019 14:16) Authored: Preferred Language, Advanced Directives, Family Violence Adult, Learning Assessment (Patient), Learning Assessment (Other Learner), Pressure Injury/TB/Substance, CAGE Last Updated: 20-Aug-2019 14:16 by Amna Parekh (STAFF N) Normal [facility] Triage - EDon 08-20-2019 Triage - ED [...] BMI (kg/m2): 30.009 Calculated BSA (m2) 1.94 [place] Coma Scale: Best Eye Response: (E4) spontaneous Best Motor Response: (M6) obeys commands Best Verbal Response: (V5) oriented [place] Score: 15 Cough lasting greater than 3 [...] immediate family member Language: Spoken Language Preferred: [place] Reading Language Preferred: [place] Technical Services Rep Requested: no indian trader was requested PRIMARY ASSESSMENT MARY PANIAGUA's primary [...] 14:14 by Amna Parekh (STAFF N) Normal [facility] Vital Signs Date Time Vital Sign Value Performing Clinician Faci lity 06-05-2022 12:59-0400 Body height 160.02 cm Moe Garner MD Work Phone: [facility] Work Phone: 06-05-2022 12:59-0400 Body mass index (BMI) [Ratio] 36.15 kg/m2 Moe Garner MD Work Phone: [facility] Work Phone: 06-05-2022 12:59-0400 Body surface area Derived from formula 1.95 m2 Moe Garner MD Work Phone: [facility] Work Phone: 06-05-2022 12:59-0400 Body weight 92.56 kg Moe Garner MD Work Phone: [facility] Work Phone: 06-05-2022 12:59-0400 0 1 Moe Garner MD Work Phone: [facility] Work Phone: Comment on above: [employer] Encounters Encounter Date Encounter Type Care Provider Facility Start: 04-16-2024 ambulatory Hugo Nixon acility:[facility] Start: 03-16-2024 End: 03-16-2024 ambulatory formerly [facility] Start: 02-24-2024 End: 02-24-2024 ambulatory formerly [facility] Start: 02-24-2024 Encounter for gynecological examination (general) (routine) without abnormal findings formerly [facility] Start: 02-24-2024 End: 02-24-2024 ambulatory [facility] Start: 02-24-2024 Encounter for gynecological examination (general) (routine) without abnormal findings [facility] Start: 01-15-2024 End: 01-15-2024 ambulatory formerly [facility] Start: 12-22-2023 ambulatory [facility] Start: 12-15-2023 End: 12-16-2023 ambulatory [facility] Start: 12-15-2023 End: 12-15-2023 ambulatory formerly [facility] Start: 12-02-2023 End: 12-03-2023 ambulatory [facility] Start: 12-02-2023 End: 12-02-2023 ambulatory formerly [facility] Start: 10-10-2023 End: 10-11-2023 ambulatory [facility] Start: 10-09-2023 End: 10-10-2023 ambulatory [facility] Start: 11-13-2022 End: 11-14-2022 ambulatory Archana Garcia Facility:[facility] Start: 06-05-2022 Office outpatient ne w 30 minutes Moe Garner MD Work Phone: [facility] Work Phone: Start: 06-05-2022 ambulatory Ms. Mannie Levy Facility:[id number] Start: 02-22-2021 End: 03-15-2021 Discharged Recurring METAL TRIMMER Mannie Levy Work Phone: [facility] Start: 07-31-2020 End: 08-03-2020 Patient encounter procedure CHRIS Argueta [facility] Start: 03-16-2020 End: 03-16-2020 Emergency department patient visit ZEN [facility] Start: 11-19-2019 End: 11-20-2019 [facility] Start: 08-31-2019 End: 08-31-2019 Patient encounter procedure MANNIE Major LEVY [facility] Start: 08-23-2019 End: 08-23-2019 Emergency department patient visit [facility] Moriah LEVY [facility] Procedures Date Procedure Procedure Detail Performing Clinician Start: 12-15-2023 Follow-up visit Follow-up ARCHANA GARCIA Start: 11-20-2019 Antibody screen Comment on above: Performed By: #### C BCDIF, CMP #### [place] [address] Start: 11-20-2019 Cul prsmptv pthgnc o rganism [...] source HERMILA GUAJARDO Start: 11-19-2019 FULL CODE HERIMLA GROVE Start: 11-19-2019 INTAKE AND OUTPUT HERMILA [...] abdominal real ti me w/image limited HERMILA BLACKBURNGABE Start: 08-31-2019 Assay of amylase HERMILA CASANDRA Start: 08-31-2019 Assay of lipase HERMILA Lange CHANTEL Start: 08-31-2019 Blood count complete auto&auto difrntl wbc HERMILA BLACKBURNGABE Start: 08-31-2019 Comprehensive metabo lic panel HERMILA CASANDRA Start: 08-31-2019 ASSESS HEART TONES HERMILA CASANDRA Start: 08-31-2019 DIET NPO, NOW HERMILA LYONSOMER Start: 08-31-2019 FULL CODE HERMILA MORALES OSOMER Start: 08-31-2019 INITIATE OXYGEN THER APY PROTOCOL HERMILA CASANDRA Start: 08-31-2019 NOTIFY PHYSICIAN (SPECIFY) HERMILA CASANDRA Start: 08-31-2019 Urnls dip stick/tabl et rgnt auto w/o microscopy HERMILA CASANDRA Start: 08-31-2019 VITAL SIGNS HERMILA MORALES MAGOMER Start: 08-23-2019 Assay of magnesium ROBYN Nunez CASANDRA Start: 08-23-2019 Blood count complete auto&auto difrntl wbc HERMILA BLACKBURNGABE Start: 08-23-2019 Comprehensive metabo lic panel HERMILA CASANDRA Start: 08-23-2019 Iaadiadoo influenza PETRA EMIGDIO GUAJARDO Start: 08-23-2019 Culture bacterial quanttative colony count urine HERMILA CASANDRA Start: 08-23-2019 Urinalysis microscopic only HERMILA CASANDRA Start: 08-23-2019 Urnls dip stick/tabl et rgnt auto w/o microscopy HERMILA BLACKBURNGABE Bronchoscopy Moe Perdomo Work Phone: Decompression of med naif nerve Moe Garner MD Work Phone: Dilation and curettage Phoebe Garner MD Work Phone: Operation on mouth Moe rosen MD Work Phone: Immunizations Immunization Date Immunization Notes Care Provider Fa [facility] 02-22-2021 COVID-19 mRNA,[id number] b2 (Pfizer) METAL TRIMMERPranav Levy Work Phone: [facility] Payers Date Payer Category Payer Self-pay [id number] 2022 Unknown [id number] 2018 Unknown [id number] 1984 Unknown [id number] 2.16.8 40.1.310423.3.579.2.182 1984 Unknown [id number] 2.16.8 40.1.219655.3.579.2.182 1984 Unknown [id number] 2.16.8 40.1.074836.3.579.2.182 1984 Unknown [id number] 2.16.8 40.1.855150.3.579.2.182 1984 Unknown [id number] 2.16.8 40.1.372352.3.579.2.182 1984 Unknown [id number] 2.16. 840.1.074613.3.579.2.356 1984 Unknown [id number] 2.16.8 40.1.994786.3.579.2.718 1984 Unknown [id number] 2.16.8 40.1.021743.3.579.2.173 1984 Unknown [id number] 2.16.8 40.1.069984.3.579.2.173 1984 Unknown [id number] 2.16.8 40.1.153529.3.579.2.1286 1984 Unknown [id number] 2.16.8 40.1.388775.3.579.2.1286 1984 Unknown [id number] 2.16.8 40.1.372423.3.579.2.1286 1984 Unknown [id number] 2.16.8 40.1.837315.3.579.2.1286 1984 Unknown [id number] 2.16.8 40.1.359106.3.579.2.983 1984 Unknown [id number] 2.16.8 40.1.984033.3.579.2.1286 1984 Unknown [id number] 2.16.8 40.1.394895.3.579.2.1286 1984 Unknown [id number] 2.16.8 40.1.905528.3.579.2.1286 1984 Unknown [id number] 2.16.8 40.1.744026.3.579.2.1286 1984 Unknown [id number] 2.16.8 40.1.475853.3.579.2.6 1984 Unknown [id number] 2.16.8 40.1.084602.3.579.2.1286 Unknown [employer] Unknown [id number] 2.16.8 40.1.008815.3.579.2.531 Social History Date Type Detail Facility Tobacco smoking stat [facility] Unknown if ever smoked [facility] Start: 1985 Sex Assigned At Female F [facility] Current smoker Current smoker [facility] [...] moderate.This note was created using speech recognition 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 Despite proofreading, several typographical errors might [...] stapedectomy for otosclerosis is an elective procedure. ZL-Zbtkccrtjvxigd-Pvutwue n Work Phone: Evaluation note Note Date & Type Note Facility Evaluation note No assessment information [facility] Summary Purpose Family History No Family History Records FoundUnknown Family Member Name Dates Details Family history of thyroid di sease: Mother(V18.19, Z83.49) Status:Active Family history of chronic ob structive pulmonary disease: Mother(V17.6, Z82.5) Status:Active Alive and well: Mother, Fath er Status:Active Family history of diabetes m ellitus: Father(V18.0, Z83.3) Status:Active Family history of asthma: Fa ther(V17.5, Z82.5) Status:Active Family history of hypertensi on: Father(V17.49, Z82.49) Status:Active Advance Directives No Advanced Directives Records Found Advance Directive Response Recorded Date/ Time Advance Directives No February 22 1 1:00pm Hospital Course Note HNO ID: [id number] Author: Pranav Gipson (ResChana Esquivel MD Service: [...] (more content not included)... Note HNO ID: [id number] Author: Brandan narvaez (Res) MD [place] Service: Obstetrics Author Type: Resident Type: Procedures Filed: 11/20/2019 7:01 PM Note Text: OB BEDSIDE PROCEDURE NOTE [facility] PROCEDURE DATE: November 20, 2019 PROCEDURE START TIME: 6:59 PM PRIMARY PROCEDURALIST: John Lovett MD ETL MANAGER(S): None Informed Consent: Informed Consent obtained and on the chart [place] Protocol/Safety Checklist: Sign in Communication: Completed Time [...] (more content not included)... Note HNO ID: [id number] Author: Brandan West) MAXIMO Cline.SHOTGUN SHELL ASSEMBLY MACHINE OPERATOR Service: ? Author Type: Nurse Lead Assembler Type: Anesthesia Procedure Notes Filed: 11/20/2019 8:12 PM Note Text: ANESTHESIOLOGY PROCEDURE NOTE Epidural Block General Information Procedure Start Time/Medication Administration: 11/20/2019 7:35 PM Patient location during procedure: LANDD roomTimeout Performed Pre-procedure: timeout performed Consent Obtained: Yes Patient identity confirmed: arm band, care steamer gum candy and patient Reason for block: labor epidural Staffing SHOTGUN SHELL ASSEMBLY MACHINE OPERATOR: Jose Cline APRN.SHOTGUN SHELL ASSEMBLY MACHINE OPERATOR Performed by: SHOTGUN SHELL ASSEMBLY MACHINE OPERATOR Preparation Sterility Preparation: hand hygiene performed prior [...] not included)... Procedure Findings Note HNO ID: [id number] Author: Brandan narvaez (Rhoda Lovett MD Service: Obstetrics Author Type: Resident Type: Procedures Filed: 11/20/2019 7:01 PM Note Text: OB BEDSIDE PROCEDURE NOTE [facility] PROCEDURE DATE: November 20, 2019 PROCEDURE START TIME: 6:59 PM PRIMARY PROCEDURALIST: John Lovett MD ETL MANAGER(S): None Informed Consent: Informed Consent obtained and on the chart [place] Protocol/Safety Checklist: Sign in Communication: Completed Time [...] (more content not included)... Note HNO ID: [id number] Author: Brandan West) MAXIMO Cline.SHOTGUN SHELL ASSEMBLY MACHINE OPERATOR Service: ? Author Type: Nurse Lead Assembler Type: Anesthesia Procedure Notes Filed: 11/20/2019 8:12 PM Note Text: ANESTHESIOLOGY PROCEDURE NOTE Epidural Block General Information Procedure Start Time/Medication Administration: 11/20/2019 7:35 PM Patient location during procedure: LANDD roomTimeout Performed Pre-procedure: timeout performed Consent Obtained: Yes Patient identity confirmed: arm band, care steamer gum candy and patient Reason for block: labor epidural Staffing SHOTGUN SHELL ASSEMBLY MACHINE OPERATOR: Jose West) APRN. MarlynSHOTGUN SHELL ASSEMBLY MACHINE OPERATOR Performed by: CARLOS Preparation Sterility Preparation: hand [...] section and content) DATE CREATED AUTHOR 08/20/2019 [facility] DATE CREATED AUTHOR AUTHOR'S ORGANIZ ATION [facility]/23/2019 [facility] DATE CREATED AUTHOR AUTHOR'S ORGANIZ ATION 08/04/2020 [facility] DATE CREATED AUTHOR AUTHOR'S ORGANIZ ATION 09/01/2020 [facility] DATE CREATED AUTHOR AUTHOR'S ORGANIZ ATION 04/26/2021 [facility] DATE CREATED AUTHOR AUTHOR'S ORGANIZ ATION 06/05/2022 [facility] [place] DATE CREATED AUTHOR AUTHOR'S ORGANIZ ATION 06/05/2022 [employer] DATE CREATED AUTHOR AUTHOR'S ORGANIZ ATION [facility]/2022 [facility] [place] DATE CREATED AUTHOR AUTHOR'S ORGANIZ ATION 10/14/2023 [facility] DATE CREATED AUTHOR AUTHOR'S ORGANIZ ATION 12/16/2023 [facility] DATE CREATED AUTHOR AUTHOR'S ORGANIZ ATION 12/16/2023 [facility] DATE CREATED AUTHOR AUTHOR'S ORGANIZ ATION 12/23/2023 [facility] DATE CREATED AUTHOR AUTHOR'S ORGANIZ ATION 03/11/2024 [facility] DATE CREATED AUTHOR AUTHOR'S ORGANIZ ATION 03/19/2024 [facility] DATE CREATED AUTHOR AUTHOR'S ORGANIZ ATION 04/18/2024 [facility] Goals (unrecognized section and content) Goals may [...] BE BASED ON THE PRIMARY CLINICAL RECORDS. [facility]. provides no warranty or guarantee of the accuracy or completeness of information in this document.
[2024-04-23] MEDS: POTASSIUM CHLORIDE/D5-0.45NACL 1,000 ML 125 ML IV (21:03)
[2024-04-23 21:04] LABS: Glucometer 122 mg/dL (74-106)
[2024-04-23] MEDS: MONTELUKAST SODIUM 10 MG TABLET PO (21:04)
[2024-04-23] MEDS: ENOXAPARIN SODIUM 40 MG/0.4 ML SYRINGE SUBQ (21:04)
[2024-04-23] MEDS: QUETIAPINE FUMARATE 100 MG TABLET 300 MG PO ×2 (21:04→21:13)
[2024-04-23] MEDS: BUSPIRONE HCL 15 MG TABLET 30 MG PO (21:05)
[2024-04-23] MEDS: MORPHINE SULFATE 2 MG/ML SYRINGE IV (21:56)
[2024-04-23] MEDS: TEMAZEPAM 15 MG CAPSULE PO (22:00)
[2024-04-24] VITALS (12 sets, daily range): BP systolic 100–115; BP diastolic 55–78; PULSE 69–110; TEMP 36.6–37.8; O2SAT 90–98
[2024-04-24] MEDS: MORPHINE SULFATE 2 MG/ML SYRINGE IV ×2 (02:06→06:19)
[2024-04-24] MEDS: KETOROLAC TROMETHAMINE 30 MG/ML VIAL IVP ×4 (04:15→21:13)
[2024-04-24] MEDS: POTASSIUM CHLORIDE/D5-0.45NACL 1,000 ML 125 ML IV ×3 (04:56→19:43)
[2024-04-24 06:15] LABS: Basophils Percent Auto 0.2 % (0.2-2.0); Eosinophils Percent Auto 0.3 % (0.9-7.0); Hematocrit 29.5 % (36.0-48.0); Hemoglobin 10.2 g/dL (12.0-16.0); Immature Granulocytes Abs Auto 0.03 10^3/uL (0.00-0.03); Immature Granulocytes Pct Auto 0.3 % (0.0-0.5); Lymphocytes Absolute Auto 1.1 10^3/uL (1.2-3.8); Lymphocytes Percent Auto 12.4 % (20.5-60.0); Mean Corpuscular HGB Conc 34.6 g/dL (29.9-35.2); Mean Corpuscular Hemoglobin 29.1 pg (26.7-34.0); Mean Corpuscular Volume 84.3 fL (81.0-99.0); Mean Platelet Volume 10.3 fL (9.5-13.5); Monocytes Percent Auto 10.5 % (1.7-12.0); Neutrophils Percent Auto 76.3 % (43.0-75.0); Platelet Count 143 10^3/uL (150-450); Red Cell Distribution Width 11.9 % (11.0-15.0); White Blood Count 9.2 10^3/uL (4.0-11.0)
[2024-04-24 06:28] LABS: Alanine Aminotransferase 19 U/L (14-59); Albumin Globulin Ratio 1.1; Albumin Level 3.1 g/dL (3.4-5.0); Alkaline Phosphatase 65 U/L (46-116); Anion Gap 13.1; Aspartate Amino Transferase 16 U/L (15-37); Bilirubin Total 0.3 mg/dL (0.2-1.0); Carbon Dioxide 23.6 mmol/L (21.0-32.0); Chloride 104 mmol/L (98-107); Estimated GFR (African America >60 (>=60); Estimated GFR (Non-African Ame >60 (>=60); Globulin 2.8 g/dL; Glucose 144 mg/dL (74-106); Magnesium 1.1 mg/dL (1.8-2.4); Phosphorus 2.5 mg/dL (2.6-4.7); Potassium 3.7 mmol/L (3.5-5.1); Sodium 137 mmol/L (136-145); Total Protein 5.9 g/dL (6.4-8.2)
[2024-04-24] MEDS: BUSPIRONE HCL 15 MG TABLET 30 MG PO ×2 (08:42→21:14)
[2024-04-24] MEDS: ESCITALOPRAM 10 MG TABLET 20 MG PO (08:42)
--- NOTE | 2024-04-24 09:29 | P.HP_ITS ---
HPI H&P: HPI History of Present Illness Chief complaint: DIZZINESS BODY ACHES ABDOMINAL PAIN Pyelonephritis Narrative: Patient presented to the emergency room with bodyaches and abdominal pain, back pain. Found to have acute pyelonephritis on CT scan. Admitted for workup and treatment of same When I saw patient up on the medical surgical floor, she is moderately uncomfortable secondary to the pain. No other complaints. She does have a history of asthma but does not feel like her asthma is active at this time. Opioid HPI Opioid Management Most Recent Pain and Opioid Data: Last Pain Scale 7 04/24/24 07:44 Last Pain Assessment 04/24/24 10:41 Last ED Pain Assessment 04/23/24 18:42 Last MAR Pain Assessment 04/24/24 06:19 Last ORT Total Score 8 04/23/24 19:50 Last ORT Risk Category High Risk 04/23/24 19:50 Review of Systems ROS Status of ROS 10 or more systems reviewed and unremark able except as noted in history and below [facility] Medical History (Updated 04/23/24 @ 20:17 by Jailene Man) Blood transfusion as the cause of abnormal reaction of patient, or of later complication, without misadventure at the time of procedure ?T80.92XA - Unspecified transfusion reaction, initial encounter (ICD-10) Ovarian cyst ?N83.209 - Unspecified ovarian cyst, unspecified side (ICD-10) Arthritis ?M19.90 - Unspecified osteoarthritis, unspecified site (ICD-10) Seasonal allergies ?J30.2 - Other seasonal allergic rhinitis (ICD-10) Diabetes ?E11.9 - Type 2 diabetes mellitus without complications (ICD-10) Asthma ?J45.909 - Unspecified asthma, uncomplicated (ICD-10) Irritable bowel syndrome ?K58.9 - Irritable bowel syndrome without diarrhea (ICD-10) Surgical History (Updated 04/23/24 @ 20:17 by Jailene Man) H/O dilation and curettage ?Z98.890 - Other specified postprocedural states (ICD-10) Carpal tunnel syndrome on right ?G56.01 - Carpal tunnel syndrome, right upper limb (ICD-10) Family History (Updated 04/23/24 @ 20:18 by Jailene Man) Grandfather Family history of CHF (congestive heart failure) Family history of diabetes mellitus Mother Family history of COPD (chronic obstructive pulmonary disease) Grandmother Family history of cancer Uncle Family history of cancer Father Family history of diabetes mellitus Family history of hypertension Brother Family history of diabetes mellitus Social History (Updated 04/23/24 @ 20:19 by Jailene Man) Within the past year, how often did you have a drink containing alcohol: never Score interpretation: A score less than 3 is consistent with normal alcohol consumption. 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 Highest level of school completed/degree received: some college, no degree Are you now , , , , never or living with a partner: In a typical week, how many times do you talk on the telephone with family, friends, or neighbors: 3 or more times per week How often do you get together with friends or relatives: 3 or more times per week How often do you attend alevism or mormonism services: never Little interest or pleasure in doing things: not at all Feeling down, depressed, or hopeless: not at all Feel stressed/tense/nervous/anxious/difficulty sleeping: not at all Do you think of yourself as: straight/heterosexual Gender Identity: female Meds Home Medications and Allergies Home Medications ?Medication ?Instructions ?Recorded ?Confirmed ?Type albuterol sulfate 90 mcg/actuation 2 puff inhalation Q6H PRN 04/23/24 04/24/24 History aerosol inhaler shortness of breath or wheezing bupropion HCl 300 mg 24 hr tablet, 300 mg PO DAILY 04/23/24 04/23/24 History extended release (Wellbutrin XL) buspirone 30 mg tablet 30 mg PO BID 04/23/24 04/23/24 History dicyclomine 20 mg tablet 20 mg PO BID 04/23/24 04/23/24 History escitalopram oxalate 20 mg tablet 20 mg PO DAILY 04/23/24 04/23/24 History (Lexapro) metformin 500 mg tablet 500 mg PO BID 04/23/24 04/23/24 History montelukast 10 mg tablet 10 mg PO QPM 04/23/24 04/23/24 History (Singulair) pantoprazole 40 mg tablet,delayed 40 mg PO Q12H 04/23/24 04/23/24 History release quetiapine 300 mg tablet (Seroquel) 300 mg PO .QHS 04/23/24 04/24/24 History hydroxyzine pamoate 50 mg capsule 50 mg PO TID PRN anxiety 04/24/24 04/24/24 Hi story ibuprofen 800 mg tablet 800 mg PO Q8H PRN pain 04/24/24 04/24/24 History loratadine 10 mg tablet (Allergy 10 mg PO DAILY PRN allergy symptoms 04/24/24 04/24/24 History Relief (loratadine)) methocarbamol 750 mg tablet 750 mg PO BID PRN muscle spasticity 04/24/24 04/24/24 History Allergies Allergy/AdvReac Type Severity Reaction Status Date / Time No Known Drug Allergies Allergy Verified 04/23/24 15:35 Exam Constitutional Vital Signs, click to edit/add: Last Vital Signs Temp 97.8 F 04/24/24 07:44 Pulse 90 04/24/24 08:00 Resp 20 04/24/24 07:44 BP 110/70 04/24/24 07:44 Pulse Ox 97 04/24/24 08:00 O2 Del Method Room Air 04/24/24 07:44 Documenting provider has reviewed patient's vital signs: yes Common normals: apparent distress (Moderate painful distress) Chest Common normals: inspection of chest normal Respiratory Common normals: normal respiratory effort, no retractions and no use of accessory muscles Cardio Common normals: regular rate and regular rhythm GI Common normals: Normal to inspection, nondistended, normoactive bowel sounds present and soft to palpation; tender Results Labs Labs: Short CBC 04/23/24 04/24/24 Range/Units 15:50 05:52 WBC 12.3 H 9.2 (4.0-11.0) 10^3/uL Hgb 11.4 L 10.2 L (12.0-16.0) g/dL Hct 33.0 L 29.5 L (36.0-48.0) % Plt Count 229 143 L (150-450) 10^3/uL BMP 04/23/24 04/24/24 15:50 05:52 Sodium 138 137 Potassium 3.6 3.7 Chloride 101 104 Carbon Dioxide 26.3 23.6 BUN 13.0 8.0 Creatinine 0.89 0.80 Glucose 163 H 144 H Calcium 9.2 8.0 L Liver Function 04/23/24 04/24/24 Range/Units 15:50 05:52 Total Bilirubin 0.3 0.3 (0.2-1.0) mg/dL AST 11 L 16 (15-37) U/L ALT 18 19 (14-59) U/L Alkaline Phosphatase 73 65 (46-116) U/L Albumin 3.8 3.1 L (3.4-5.0) g/dL Urine 04/23/24 Range/Units 15:45 Urine Color Lt. yellow (YELLOW) Urine Clarity Clear (CLEAR) Urine pH 5.5 (5.0-9.0) Ur Specific [place] >=1.030 A (1.005-1.025) Urine Protein Negative (NEG/TRACE) mg/dL Urine Glucose (UA) Negative (NEGATIVE) mg/dL Assessment and Plan Assessment and Plan (1) Pyelonephritis: Plan Admission findings: Fever, tachycardia, respiratory distress, uncontrolled hypertension, leukocytosis, positive lactate, hypomagnesemia, hypophosphatemia- resulting from acute pyelonephritis resulting in severe sepsis. Given fluid boluses. Add second antibiotic. Blood cultures urine cultures pending. L Acute pyelonephritis-see plan as outlined above Back pain-this is likely related to the pyelonephritis although pain seems to be out of proportion. Could be more musculoskeletal in addition to the above. Will change Toradol to [id number], added tizanidine, Tylenol for pain control, holding off on narcotics secondary to history of cocaine addiction, although not the same category do not want to create a set up for failed treatment of her cocaine addiction Thrombocytopenia-likely related to the above infection as outlined above-monitor daily Diabetes mellitus-restart metformin Hypophosphatemia-supplement Urxbmtctfazcpw-bwjlvm-xxjodsjvqj IV Liver mass-can workup as an outpatient Mild protein calorie malnutrition-diet management Hypertension on admission-improved Admission status: Patient with pyelonephritis based on CT scan and abnormal UA and leukocytosis, positive lactate consistent with sepsis-severe. Medically necessary treatment will span 2 midnights. Inpatient status.
[2024-04-24] MEDS: BUPROPION HCL 150 MG XL TABLET 24H 300 MG PO (09:51)
[2024-04-24] MEDS: CIPROFLOXACIN IN 5 % DEXTROSE 400 MG/200 ML PREMIX 200 MG IV ×2 (09:51→21:14)
[2024-04-24] MEDS: SOD PHOS DI, MONO/K PHOS MONO 250 MG TABLET PO (10:54)
[2024-04-24] MEDS: OMEPRAZOLE 40 MG CAPSULE.DR PO ×2 (10:55→21:14)
[2024-04-24] MEDS: ACETAMINOPHEN 500 MG TABLET 1000 MG PO ×2 (10:55→19:41)
[2024-04-24] MEDS: DICYCLOMINE HCL 10 MG CAPSULE 20 MG PO ×3 (11:02→21:13)
[2024-04-24] MEDS: TIZANIDINE HCL 4 MG TABLET PO ×2 (11:13→19:41)
[2024-04-24] MEDS: MAGNESIUM SULFATE IN WATER 4 GM/100 ML PIGGYBACK IV (11:13)
[2024-04-24 11:17] LABS: Glucometer 203 mg/dL (74-106)
[2024-04-24] MEDS: INSULIN ASPART 300 UNIT/3 ML PEN SUBQ ×3 (11:18→21:25)
[2024-04-24] MEDS: PHOSPHO-TRIN 250 NEUTRAL 250 MG TABLET PO ×2 (15:53→21:14)
[2024-04-24 16:43] LABS: Glucometer 173 mg/dL (74-106)
[2024-04-24] MEDS: CEFTRIAXONE 1,000 MG in 0.9 % SODIUM CHLORIDE 50 ML 100 MG IV (17:00)
[2024-04-24] MEDS: MONTELUKAST SODIUM 10 MG TABLET PO (19:41)
[2024-04-24] MEDS: METFORMIN HCL 500 MG TABLET PO (21:13)
[2024-04-24] MEDS: QUETIAPINE FUMARATE 100 MG TABLET 300 MG PO (21:14)
[2024-04-24 21:24] LABS: Glucometer 199 mg/dL (74-106)
[2024-04-24] MEDS: TEMAZEPAM 15 MG CAPSULE PO (21:24)
[2024-04-24] MEDS: ENOXAPARIN SODIUM 40 MG/0.4 ML SYRINGE SUBQ (21:24)
[2024-04-25] VITALS: BP 92/50; PULSE 62; TEMP 36.4; O2SAT 95
[2024-04-25] MEDS: KETOROLAC TROMETHAMINE 30 MG/ML VIAL IVP ×2 (03:52→09:10)
[2024-04-25 03:54] VITALS: BP 93/53; PULSE 62; TEMP 36.7; O2SAT 93
[2024-04-25] MEDS: DICYCLOMINE HCL 10 MG CAPSULE 20 MG PO ×2 (05:18→13:27)
[2024-04-25] MEDS: POTASSIUM CHLORIDE/D5-0.45NACL 1,000 ML 125 ML IV (05:19)
[2024-04-25 06:15] LABS: Basophils Percent Auto 0.4 % (0.2-2.0); Eosinophils Absolute Auto 0.1 10^3/uL (0.0-0.7); Eosinophils Percent Auto 1.6 % (0.9-7.0); Hematocrit 28.3 % (36.0-48.0); Hemoglobin 9.6 g/dL (12.0-16.0); Immature Granulocytes Abs Auto 0.01 10^3/uL (0.00-0.03); Immature Granulocytes Pct Auto 0.2 % (0.0-0.5); Lymphocytes Absolute Auto 1.1 10^3/uL (1.2-3.8); Lymphocytes Percent Auto 22.3 % (20.5-60.0); Mean Corpuscular HGB Conc 33.9 g/dL (29.9-35.2); Mean Corpuscular Hemoglobin 28.7 pg (26.7-34.0); Mean Corpuscular Volume 84.7 fL (81.0-99.0); Mean Platelet Volume 9.3 fL (9.5-13.5); Monocytes Absolute Auto 0.8 10^3/uL (0.3-0.8); Monocytes Percent Auto 14.9 % (1.7-12.0); Neutrophils Absolute Auto 3.1 10^3/uL (1.4-6.5); Neutrophils Percent Auto 60.6 % (43.0-75.0); Platelet Count 141 10^3/uL (150-450); Red Blood Count 3.34 10^6/uL (4.20-5.40); Red Cell Distribution Width 11.9 % (11.0-15.0)
[2024-04-25 06:28] LABS: Anion Gap 13.8; BUN Creatinine Ratio 13.2; Calcium 7.9 mg/dL (8.5-10.1); Carbon Dioxide 24.4 mmol/L (21.0-32.0); Chloride 106 mmol/L (98-107); Estimated GFR (African America >60 (>=60); Estimated GFR (Non-African Ame >60 (>=60); Glucose 183 mg/dL (74-106); Magnesium 1.7 mg/dL (1.8-2.4); Phosphorus 2.8 mg/dL (2.6-4.7); Potassium 4.2 mmol/L (3.5-5.1); Sodium 140 mmol/L (136-145)
[2024-04-25 07:39] VITALS: BP 99/69; PULSE 84; TEMP 36.6; O2SAT 98
[2024-04-25] MEDS: OMEPRAZOLE 40 MG CAPSULE.DR PO (08:15)
[2024-04-25] MEDS: METFORMIN HCL 500 MG TABLET PO (08:15)
[2024-04-25] MEDS: ESCITALOPRAM 10 MG TABLET 20 MG PO (08:15)
[2024-04-25] MEDS: BUSPIRONE HCL 15 MG TABLET 30 MG PO (08:15)
[2024-04-25] MEDS: PHOSPHO-TRIN 250 NEUTRAL 250 MG TABLET PO ×2 (08:15→13:27)
[2024-04-25] MEDS: BUPROPION HCL 150 MG XL TABLET 24H 300 MG PO (08:15)
--- NOTE | 2024-04-25 09:08 | P.DS_ITS ---
DS: Providers Provider Date of admission: 04/23/24 19:41 Primary care physician: Non-Staff Physician, DS: Diagnosis Discharge Diagnosis (1) Pyelonephritis: Plan Admission findings: Fever, tachycardia, respiratory distress, uncontrolled hypertension, leukocytosis, positive lactate, hypomagnesemia, hypophosphatemia- resulting from acute pyelonephritis resulting in severe sepsis. Given fluid boluses. Add second antibiotic. Blood cultures urine cultures pending. Acute pyelonephritis-symptoms improving at the time of discharge Back pain-symptoms better with the tizanidine-will discharge home with that Thrombocytopenia-likely related to the above infection as outlined above- somewhat deteriorated from admission but not critical, can follow-up as an outpatient Diabetes mellitus-maintain medications as an outpatient Hypophosphatemia-supplement Swxizbtiuvmfsc-bzlnio-edefneoei at the time of discharge Liver mass-can workup as an outpatient Mild protein calorie malnutrition-diet management Hypertension on admission-improved Admission status: Patient with pyelonephritis based on CT scan and abnormal UA and leukocytosis, positive lactate consistent with sepsis-severe. Medically necessary treatment will span 2 midnights. Inpatient status. ?D/C home sooner than expected due to rapid improvement in pain DS: Summary Hospital Course Hospital Course: Patient is admitted for back pain and abdominal pain. Found to have acute right-sided pyelonephritis. They after initial admission patient had not significant improved in terms of her pain. White blood cell count was improved. With the failure of improvement in her pain she was kept 1 additional day with the risk of being on the incorrect antibiotics. Currently stated that she is much improved, much better than would be anticipated compared to how she was yesterday. Antibiotic current plan seems to be helping. Cultures are pending but we will discharge patient to home in improving condition. Medications see list. Follow-up with her PCP to follow-up on cultures, Patient discharged home sooner than anticipated based on symptoms after the first 24 hours. Status at Discharge Cognitive/behavioral status at discharge: Discharged home sooner than anticipated with rapid improvement in symptoms Overall status at discharge: patient is not back to baseline Time Spent with Patient Time attestation: Total time spent providing and/or coordinating discharge services: Time spent: greater than 30 minutes Exam Constitutional Vital Signs, click to edit/add: Last Vital Signs Temp 97.8 F 04/25/24 07:39 Pulse 84 04/25/24 07:39 Resp 20 04/25/24 07:39 BP 99/69 04/25/24 07:39 Pulse Ox 98 04/25/24 07:39 O2 Del Method Room Air 04/25/24 07:39 Documenting provider has reviewed patient's vital signs: yes Common normals: no apparent distress Respiratory Common normals: normal respiratory effort Cardio Common normals: regular rate and regular rhythm GI Common normals: Normal to inspection, nondistended, normoactive bowel sounds present and soft to palpation Neuro [place] Coma Scale: document GCS findings Common normals: oriented x3, CN's II-XII intact bilaterally and moves all extremities DS: Data Data Completed and Pending Labs on day of discharge: Labs from last 24 hours 04/25/24 04/24/24 04/24/24 05:54 21:22 16:42 WBC 5.0 RBC 3.34 L Hgb 9.6 L Hct 28.3 L MCV 84.7 MCH 28.7 MCHC 33.9 RDW 11.9 Plt Count 141 L MPV 9.3 L Neut % (Auto) 60.6 Lymph % (Auto) 22.3 [place] % (Auto) 14.9 H Eos % (Auto) 1.6 Baso % (Auto) 0.4 Neut # (Auto) 3.1 Lymph # (Auto) 1.1 L [place] # (Auto) 0.8 Eos # (Auto) 0.1 Baso # (Auto) 0.0 Abs Immat Gran (auto) 0.01 Imm/Tot Granulo (auto) 0.2 Sodium 140 Potassium 4.2 Chloride 106 Carbon Dioxide 24.4 Anion Gap 13.8 BUN 9.0 Creatinine 0.68 Est GFR ( Amer) >60 Est GFR (Non-Af Amer) >60 BUN/Creatinine Ratio 13.2 Glucose 183 H Calcium 7.9 L Phosphorus 2.8 Magnesium 1.7 L POC Glucose 199 H 173 H 04/24/24 11:16 WBC RBC Hgb Hct MCV MCH MCHC RDW Plt Count MPV Neut % (Auto) Lymph % (Auto) [place] % (Auto) Eos % (Auto) Baso % (Auto) Neut # (Auto) Lymph # (Auto) [place] # (Auto) Eos # (Auto) Baso # (Auto) Abs Immat Gran (auto) Imm/Tot Granulo (auto) Sodium Potassium Chloride Carbon Dioxide Anion Gap BUN Creatinine Est GFR ( Amer) Est GFR (Non-Af Amer) BUN/Creatinine Ratio Glucose Calcium Phosphorus Magnesium POC Glucose 203 H Discharge Plan Discharge Disposition: Home, Self-Care Condition: Good Discharge Medications: New cefdinir 300 mg capsule 600 mg PO DAILY 10 Days Qty: 20 0RF tizanidine 4 mg capsule 4 mg PO Q6H PRN (Reason: muscle spasticity) Qty: 30 0RF Rx Instructions: do not exceed 3 doses per 24 hrs Continued albuterol sulfate 90 mcg/actuation HFA aerosol inhaler 2 puff inhalation Q6H PRN (Reason: shortness of breath or wheezing) escitalopram oxalate [Lexapro] 20 mg tablet 20 mg PO DAILY metformin 500 mg tablet 500 mg PO BID quetiapine [Seroquel] 300 mg tablet 300 mg PO .QHS montelukast [Singulair] 10 mg tablet 10 mg PO QPM buspirone 30 mg tablet 30 mg PO BID bupropion HCl [Wellbutrin XL] 300 mg tablet extended release 24 hr 300 mg PO DAILY dicyclomine 20 mg tablet 20 mg PO BID pantoprazole 40 mg tablet,delayed release (DR/EC) 40 mg PO Q12H hydroxyzine pamoate 50 mg capsule 50 mg PO TID PRN (Reason: anxiety) ibuprofen 800 mg tablet 800 mg PO Q8H PRN (Reason: pain) loratadine [Allergy Relief (loratadine)] 10 mg tablet 10 mg PO DAILY PRN (Reason: allergy symptoms) Discontinued methocarbamol 750 mg tablet 750 mg PO BID PRN (Reason: muscle spasticity) Print Language: Mongolian Patient Instructions: Tizanidine (By mouth), Cefdinir (By mouth), Kidney Infection (DC) Forms: Portal Instructions Follow Up Appointments: Call your PCP Archana Hung Friday for followup next week [phone]
[2024-04-25] MEDS: CIPROFLOXACIN IN 5 % DEXTROSE 400 MG/200 ML PREMIX 125 MG IV (09:11)
[2024-04-25] MEDS: TIZANIDINE HCL 4 MG TABLET PO (09:16)
[2024-04-25 11:09] VITALS: O2SAT 96
--- OUTSIDE RECORDS SUMMARY | 2024-04-27 06:36 | XMS_ITS | CCD ---
Author Organization [facility] Care Team Providers Care Dental Mold Maker Name Role Phone HERMILA GUAJARDO Attending Unavailable [...] [facility] Unav ailable Marcelo, Stacy Ying Referring Unavaila gibson Garner, Dr. Moe Victoria [...] Reference Range Facility Cytologyon 02-24-2024 Cytology Normal [facility] Comment on above: Result Comment: [facility] [address] [place] [address] Gynecologic Cytology Consultation Patient Name:MRAY PANIAGUA:1985 (Age: 38)Gender:FTaken:4Reported:4Physician(s):Mercedez Isbell APRN-CNPDarshan To: Rec. #:[id number]: #[id number] Final Cytologic Interpretation ThinPrep Pap Test (Cervical): Satisfactory for evaluation. A transformation zone component is present. NEGATIVE FOR INTRAEPITHELIAL LESION OR MALIGNANCY. jja/03/05/2024 Interpretation performed at [facility], [address] [place] [address], License number: [id number]. Electronically Signed Out By HODA Rankin(ASCP) Date of Last Menstrual Period: 02/10/24 Other Clinical Conditions: Z01.419 Culinary Director exam wo/abn findings IUD Source of Specimen ThinPrep Pap Test (Cervical) Thin Prep Pap (MINISTER ASSISTANT) Fee Code(s): G0145 The Pap test is a screening test with an inherent, but low, probability of error. The Pap test is primarily effective for the diagnosis and prevention of squamous cell carcinoma. Regular screening is critical for prevention. ThinPrep liquid-based slides, which meet the Publications Production Supervisor criteria for automated screening, have been screened by the ThinPrep Imaging System (as of 05/11/07) along with an additional manual rescreening by a derrick boat runner and, if indicated, by a pathologist. HIGH RISK HPV W/GENOon 02-23 HPV 31+33+35+39+45+51+52+56 +58+59+66+68 DNA FALLON+probe Ql (Cvx) HPV SPECIMEN TYPE ThinPrep HPV 16 Negative (qualifier value) HPV 18 Negative (qualifier value) OTHER HIGH RISK HPV Negative (qualifier value) HPV types 31,33,35,39,45,52,56,5 8,59,66 and 68 DNA were undetectable. Normal [facility] Comment on above: Performed By: #### 7 1431-1 #### [facility] ([id number]) [address] [place] [address], [place] [address] [facility] ([id number]) [address] [place] [address], [address] [place] [address] XR FINGER THUMB LT MIN 2 VWS [...] on 12/16/2023 6:38 AM Normal [facility] XR SPINE CERVICAL 3 VWS [...] on 12/16/2023 6:39 AM Normal [facility] ACUTE HEPATITIS PANELon 11-24 ANTI HCV W/PCR REFLX Non-Reactive Normal NRCT [facility] Comment on above: Result Comment: If recent infection suspected, recommend repeat testing (>2 months). Uwjrkb-wj-xdtxnz ratio is <0.80. Performed By: #### A HP, 03619-0, 32348-4 #### [facility] ([id number]) [address], [address] [place] [address] HEPATITIS A IGM Non-Reactive Normal NRCT [facility] Comment on above: Performed By: #### A HP, 91831-3, 82720-2 #### [facility] ([id number]) [address], [address] [place] [address] HEPATITIS B CORE IGM Negative Normal NEG [facility] Comment on above: Performed By: #### A HP, 62016-9, 73901-1 #### [facility] ([id number]) [address], [address] [place] [address] HEPATITIS B SURF AG Negative Normal NEG [facility] Comment on above: Performed By: #### A HP, 97831-7, 39761-1 #### [facility] ([id number]) [address] [place] [address], [address] [address] HIV 1+2 Ab+HIV1 p24 Ag IA Ql on 12-15-2023 HIV 1 and 2 Ab/Ag Screen Non-Reactive Normal NRCT [facility] Comment on above: Result Comment: This information [...] or diagnoses. Performed By: #### A , 80887-5, 73643-8 #### [facility] ([id number]) [address] [place] [address], [address] [address] T. pallidum IgG+IgM IA Ql (S )on 12-15-2023 Syphilis Total <0.2 Normal 0.0-0.8 [facility] Comment on above: Result Comment: NON REACTIVE No serologic evidence of infection to Treponema pallidum (syphilis). Repeat testing may be considered in patients with suspected acute or primary syphilis in 2 to 4 weeks. Performed By: #### A , 02585-9, 92242-8 #### [facility] ([id number]) [address] [place] [address], [address] [address] CHLAMYDIA/GC BY PCRon 2023 CHLAMYDIA/GC BY PCR [...] are dependent on adequate specimen collection. Normal [facility] Comment on above: Performed By: #### C GS #### [facility] ([id number]) [address] [place] [address], [address] [place] [address] VAGINITIS PANEL PCRon 2023 VAGINITIS PANEL PCR [...] clinical presentation to determine patient diagnosis. Normal [facility] Comment on above: Performed By: #### V PPCR #### [facility] ([id number]) [address] [place] [address], [address] [place] [address] Chlamydia/GC,DNA Ampon 10-13 Chlamydia Probe Negative Normal NEG [facility] Comment on above: Result Comment: CHLA MYDIA [...] G LYHGB, PHEP, SWCGP, TREP, HIVCMB #### [address] [address] Upholstery Cutter: Pablo Pelaez MD #### CP, CBC, HCG #### [address] [place] [id number] Upholstery Cutter: Manuel Mayorga MD Gonorrhea Probe Negative Normal NEG [facility] Comment on above: Result Comment: NEIS SERIA [...] G LYHGB, PHEP, SWCGP, TREP, HIVCMB #### [address] [id number] Upholstery Cutter: Pablo Pelaez MD #### CP, CBC, HCG #### [address] [place] [id number] Upholstery Cutter: Manuel Mayorga MD CBCon 10-10-2023 Erythrocyte distribution width (RBC) [Ratio] 13.6 % Normal 11.8-14.4 [facility] Comment on above: Performed By: #### G LYHGB, PHEP, SWCGP, TREP, HIVCMB #### [address] [id number] Upholstery Cutter: Pablo Pelaez MD #### CP, CBC, HCG #### [address] [place], [place] [phone] Upholstery Cutter: Manuel Mayorga MD Hematocrit (Bld) [Volume fraction] 42.4 % Normal 36.3-47.1 [facility] Comment on above: Performed By: #### G LYHGB, PHEP, SWCGP, TREP, HIVCMB #### [address] [id number] Upholstery Cutter: Pablo Pelaez MD #### CP, CBC, HCG #### [address] [place] [address] Upholstery Cutter: Manuel Mayorga MD Hemoglobin (Bld) [Mass/Vol] 13.7 g/dL Normal 11.9-15.1 [facility] Comment on above: Performed By: #### G LYHGB, PHEP, SWCGP, TREP, HIVCMB #### [address] [phone] Upholstery Cutter: Pablo Pelaez MD #### CP, CBC, HCG #### [address] [place] [address] Upholstery Cutter: Manuel Mayorga MD MCH (RBC) [Entitic mass] 28.5 pg Normal 25.2-33.5 [facility] Comment on above: Performed By: #### G LYHGB, PHEP, SWCGP, TREP, HIVCMB #### [address] [address] Upholstery Cutter: Pablo Pelaez MD #### CP, CBC, HCG #### [address] [place] [address] Upholstery Cutter: Manuel Mayorga MD MCHC (RBC) [Mass/Vol] 32.3 g/dL Normal 28.4-34.8 [facility] Comment on above: Performed By: #### G LYHGB, PHEP, SWCGP, TREP, HIVCMB #### [address] [phone] Upholstery Cutter: Pablo Pelaez MD #### CP, CBC, HCG #### [address] [place] [address] Upholstery Cutter: Manuel Mayorga MD MCV (RBC) [Entitic vol] 88.3 fL Normal 82.6-102.9 [facility] Comment on above: Performed By: #### G LYHGB, PHEP, SWCGP, TREP, HIVCMB #### [address] [address] Upholstery Cutter: Pablo Pelaez MD #### CP, CBC, HCG #### [address] [place], [place] [phone] Upholstery Cutter: Manuel Mayorga MD NRBC Automated 0.0 per 100 WBC Normal 0.0 [facility] Comment on above: Performed By: #### G LYHGB, PHEP, SWCGP, TREP, HIVCMB #### [address] [address] Upholstery Cutter: Palbo Pelaez MD #### CP, CBC, HCG #### [address] [place] [phone] Upholstery Cutter: Manuel Mayorga MD Platelet mean volume (Bld) [Entitic vol] 9.7 fL Normal 8.1-13.5 [facility] Comment on above: Performed By: #### G LYHGB, PHEP, SWCGP, TREP, HIVCMB #### [address] [address] Upholstery Cutter: Pablo Pelaez MD #### CP, CBC, HCG #### [address] [place] [phone] Upholstery Cutter: Manuel Mayorga MD Platelets (Bld) [#/Vol] 295 10*3/uL Normal 138-453 [facility] Comment on above: Performed By: #### G LYHGB, PHEP, SWCGP, TREP, HIVCMB #### [address] [address] Upholstery Cutter: Pablo Pelaez MD #### CP, CBC, HCG #### [address] [place] [phone] Upholstery Cutter: Manuel Mayorga MD RBC (Bld) [#/Vol] 4.80 10*6/uL Normal 3.95-5.11 [facility] Comment on above: Performed By: #### G LYHGB, PHEP, SWCGP, TREP, HIVCMB #### [place] [address] [place] [address] Upholstery Cutter: Pablo Pelaez MD #### CP, CBC, HCG #### [facility] [address] [place] [address] Upholstery Cutter: Manuel Mayorga MD WBC (Bld) [#/Vol] 5.2 10*3/uL Normal 3.5-11.3 [facility] Comment on above: Performed By: #### G LYHGB, PHEP, SWCGP, TREP, HIVCMB #### [address] [address] Upholstery Cutter: Pablo Pelaez MD #### CP, CBC, HCG #### [facility] [address] [place] [address] [place] [address] Upholstery Cutter: Manuel Mayorga MD Comp Metabolic Profon 2023 Bilirubin [Mass/Vol] mg/dL Low 0.3-1.2 [facility] Comment on above: Performed By: #### G LYHGB, PHEP, SWCGP, TREP, HIVCMB #### [place] [address] [place] [address] Upholstery Cutter: Pablo Pelaez MD #### CP, CBC, HCG #### [facility] [address] [place] [address] [place] [address] Upholstery Cutter: Manuel Mayorga MD Albumin [Mass/Vol] 4.1 g/dL Normal 3.5-5.2 [facility] Comment on above: Performed By: #### G LYHGB, PHEP, SWCGP, TREP, HIVCMB #### [place] [place] [address] Upholstery Cutter: Pablo Pelaez MD #### CP, CBC, HCG #### [address] [place], [place] [phone] Upholstery Cutter: Manuel Mayorga MD Albumin/Glob Ratio 1.6 Normal 1.0-2.5 [facility] Comment on above: Performed By: #### G LYHGB, PHEP, SWCGP, TREP, HIVCMB #### [address] [address] Upholstery Cutter: Pablo Pelaez MD #### CP, CBC, HCG #### [address] [place], [place] 7490483 Upholstery Cutter: Manuel Mayorga MD Alkaline Phos 86 U/L Normal 35-104 [facility] Comment on above: Performed By: #### G LYHGB, PHEP, SWCGP, TREP, HIVCMB #### [address] [address] Upholstery Cutter: Pablo Pelaez MD #### CP, CBC, HCG #### [address] [place], [place] [phone] Upholstery Cutter: Manuel Mayorga MD ALT [Catalytic activity/Vol] 16 U/L Normal 5-33 [facility] Comment on above: Performed By: #### G LYHGB, PHEP, SWCGP, TREP, HIVCMB #### [address] [address] Upholstery Cutter: Pablo Pelaez MD #### CP, CBC, HCG #### [facility] [address] [place] [address] Dr. [place], [place] 2429383 Upholstery Cutter: Manuel Mayorga MD Anion gap [Moles/Vol] 9 mmol/L Normal 9-17 [facility] Comment on above: Performed By: #### G LYHGB, PHEP, SWCGP, TREP, HIVCMB #### [address] [address] Upholstery Cutter: Pablo Pelaez MD #### CP, CBC, HCG #### [address] [place], [place] 7306283 Upholstery Cutter: Manuel Mayorga MD AST [Catalytic activity/Vol] 11 U/L Normal <32 [facility] Comment on above: Performed By: #### G LYHGB, PHEP, SWCGP, TREP, HIVCMB #### [address] [address] Upholstery Cutter: Pablo Pelaez MD #### CP, CBC, HCG #### [address] [place] [address] Upholstery Cutter: Manuel Mayorga MD BUN/CRE Ratio 13 Normal 9-20 [facility] Comment on above: Performed By: #### G LYHGB, PHEP, SWCGP, TREP, HIVCMB #### [address] [address] Upholstery Cutter: Pablo Pelaez MD #### CP, CBC, HCG #### [address] [place], [place] 3560983 Upholstery Cutter: Manuel Mayorga MD Calcium [Mass/Vol] 8.9 mg/dL Normal 8.6-10.4 [facility] Comment on above: Performed By: #### G LYHGB, PHEP, SWCGP, TREP, HIVCMB #### [address] [address] Upholstery Cutter: Pablo Pelaez MD #### CP, CBC, HCG #### [address] [place], [place] 0533683 Upholstery Cutter: Manuel Mayorga MD Chloride [Moles/Vol] 105 mmol/L Normal 98-107 [facility] Comment on above: Performed By: #### G LYHGB, PHEP, SWCGP, TREP, HIVCMB #### [address] [address] Upholstery Cutter: Pablo Pelaez MD #### CP, CBC, HCG #### [facility] [address] [place] [address] Dr. [place], [place] [phone] Upholstery Cutter: Manuel Mayorga MD CO2 [Moles/Vol] 27 mmol/L Normal 20-31 [facility] Comment on above: Performed By: #### G LYHGB, PHEP, SWCGP, TREP, HIVCMB #### [address] [address] Upholstery Cutter: Pablo Pelaez MD #### CP, CBC, HCG #### [facility] [address] [place] [address] [place], [place] [phone] Upholstery Cutter: Manuel Mayorga MD Creatinine [Mass/Vol] 0.8 mg/dL Normal 0.5-0.9 [facility] Comment on above: Performed By: #### G LYHGB, PHEP, SWCGP, TREP, HIVCMB #### [address] [address] Upholstery Cutter: Pablo Pelaez MD #### CP, CBC, HCG #### [address] [place] [address] Upholstery Cutter: Manuel Mayorga MD GFR/1.73 sq M.predicted among non-blacks MDRD (S/P/Bld) [Vol rate/Area] mL/min/{1.73_m2} Normal >60 [facility] Comment on above: Result Comment: These [...] G LYHGB, PHEP, SWCGP, TREP, HIVCMB #### [address] [address] Upholstery Cutter: Pablo Pelaez MD #### CP, CBC, HCG #### [facility] [address] [place] [address] [place] [address] Upholstery Cutter: Manuel Mayorga MD Glucose [Mass/Vol] 113 mg/dL High 70-99 [facility] Comment on above: Performed By: #### G LYHGB, PHEP, SWCGP, TREP, HIVCMB #### [address] [address] Upholstery Cutter: Pablo Pelaez MD #### CP, CBC, HCG #### [address] [place] [phone] Upholstery Cutter: Manuel Mayorga MD Potassium [Moles/Vol] 3.9 mmol/L Normal 3.7-5.3 [facility] Comment on above: Performed By: #### G LYHGB, PHEP, SWCGP, TREP, HIVCMB #### [address] [address] Upholstery Cutter: Pablo Pelaez MD #### CP, CBC, HCG #### [facility] [address] [place] [address] [place] [phone] Upholstery Cutter: Manuel Mayorga MD Protein [Mass/Vol] 6.6 g/dL Normal 6.4-8.3 [facility] Comment on above: Performed By: #### G LYHGB, PHEP, SWCGP, TREP, HIVCMB #### [place] [address] [place] [address] Upholstery Cutter: Pablo Pelaez MD #### CP, CBC, HCG #### [facility] [address] [place], [place] 150[address]83 Upholstery Cutter: Manuel Mayorga MD Sodium [Moles/Vol] 141 mmol/L Normal 135-144 [facility] Comment on above: Performed By: #### G LYHGB, PHEP, SWCGP, TREP, HIVCMB #### [facility] [address] [place] [address] Upholstery Cutter: Pablo Pelaez MD #### CP, CBC, HCG #### [facility] [address] [place], [place] 3092483 Upholstery Cutter: Manuel Mayorga MD Urea nitrogen [Mass/Vol] 10 mg/dL Normal 6-20 [facility] Comment on above: Performed By: #### G LYHGB, PHEP, SWCGP, TREP, HIVCMB #### [address] [address] Upholstery Cutter: Pablo Pelaez MD #### CP, CBC, HCG #### [facility] [address] [place] [address] [place], [place] 7888983 Upholstery Cutter: Manuel Mayorga MD HCG Screen, Bloodon 10-10-19 24 HCG Screen, Blood Negative Normal NEG [facility] Comment on above: Result Comment: Spec imens with hCG levels near the threshold of the test (25 mIU/mL) may give a negative or indeterminate result. In such cases, another test should be performed with a new specimen in 48-72 hours. If early is suspected clinically in this setting, correlation with quantitative serum b-hCG level is suggested. [facility] has confirmed the use of plasma for this test. This has not been cleared or approved by the U.S. Food and Drug Administration. The FDA has determined that such clearance is not necessary. Performed By: #### G LYHGB, PHEP, SWCGP, TREP, HIVCMB #### [place] [address] [place] [address] Upholstery Cutter: Pablo Pelaez MD #### CP, CBC, HCG #### [address] [place], [place] 5989083 Upholstery Cutter: Manuel Mayorga MD HIV Ag/Abon 10-10-2023 HIV Ag/Ab Non-Reactive Normal NR [facility] Comment on above: Result Comment: No l aboratory evidence of HIV infection. If acute HIV infection is suspected, consider testing for HIV-1 RNA. Performed By: #### G LYHGB, PHEP, SWCGP, TREP, HIVCMB #### [address] [address] Upholstery Cutter: Pablo Pelaez MD #### CP, CBC, HCG #### [address] [place] [address] Upholstery Cutter: Manuel Mayorga MD Hemoglobin A1Con 8 Glucose [Mass/Vol] 123 mg/dL Normal [facility] Comment on above: Result Comment: The ADA and AACC recommend providing the estimated average glucose result to permit better patient understanding of their HBA1c result. Performed By: #### G LYHGB, PHEP, SWCGP, TREP, HIVCMB #### [place] [place] [address] Upholstery Cutter: Pablo Pelaez MD #### CP, CBC, HCG #### [address] [place] [address] Upholstery Cutter: Manuel Mayorga MD HbA1c (Bld) [Mass fraction] 5.9 % Normal 4.0-6.0 [facility] Comment on above: Performed By: #### G LYHGB, PHEP, SWCGP, TREP, HIVCMB #### [facility] [address] [place] [address] Upholstery Cutter: Pablo Pelaez MD #### CP, CBC, HCG #### [address] [place], [place] 5110183 Upholstery Cutter: Manuel Mayorga MD Hepatitis Acute [facility] 10-10 Hep A Ab,IgM Non-Reactive Normal [facility] Comment on above: Performed By: #### G LYHGB, PHEP, SWCGP, TREP, HIVCMB #### [address] [address] Upholstery Cutter: Pablo Pelaez MD #### CP, CBC, HCG #### [address] [place], [place] 8732583 Upholstery Cutter: Manuel Mayorga MD Hep B Core Ab,IgM Non-Reactive Normal [facility] Comment on above: Performed By: #### G LYHGB, PHEP, SWCGP, TREP, HIVCMB #### [address] [address] Upholstery Cutter: Pablo Pelaez MD #### CP, CBC, HCG #### [address] [place], [place] 2538283 Upholstery Cutter: Manuel Mayorga MD Hep B Surf Ag Non-Reactive Normal [facility] Comment on above: Performed By: #### G LYHGB, PHEP, SWCGP, TREP, HIVCMB #### [address] [address] Upholstery Cutter: Pablo Pelaez MD #### CP, CBC, HCG #### [address] [place], [place] 0856083 Upholstery Cutter: Manuel Mayorga MD Hep C Ab Non-Reactive Normal [facility] Comment on above: Result Comment: The [...] G LYHGB, PHEP, SWCGP, TREP, HIVCMB #### [address] [place], [place] 0570408 Upholstery Cutter: Pablo Pelaez MD #### CP, CBC, HCG #### [address] [place] [address] Upholstery Cutter: Manuel Mayorga MD T.pallidum Ab Screenon 10-10 T.pallidum Ab Screen Non-Reactive Normal NR [facility] Comment on above: Result Comment: T. pallidum antibodies are not detected. There is no serological evidence of infection with T. pallidum (early primary syphilis cannot be excluded). Retest in 2-4 weeks if syphilis is clinically suspect. Performed By: #### G LYHGB, PHEP, SWCGP, TREP, HIVCMB #### [place] [place], [place] 8415808 Upholstery Cutter: Pablo Pelaez MD #### CP, CBC, HCG #### [address] [place] [address] Upholstery Cutter: Manuel Mayorga MD Trichomonas/Wet Prepon 10-10 Trichomonas/Wet Prep Specimen Descriptio n .VAGINAL SPECIMEN Direct Exam NO YEAST OBSERVED NO TRICHOMONAS SEEN CLUE CELLS SEEN Report Status FINAL 10/10/2023 Abnormal [facility] Comment on above: Performed By: #### W P #### [address] [place] [address] Upholstery Cutter: Manuel Mayorga MD Coding Summaryon 11-14-2022 Coding Summary HTMLBase 64 CyncxlecCKq1tOe+PGhlYW Q+RH7XVGIpP64yhPTsuA8L P4sWBL8RJGVNCMZDNC1EUZ 0lhXT6IFucC7DljaGg WxvklLZbHC23NFx9EXX6hG zrFDavrJ1jtSNxW3f7QtUp MN61sB68XNfgTVHmXcB5Gn ZpbjsgbWFy O2stBcYcnCYmNck+PHRhYm xlIHdpZHRoPScxMDAlJyBz vFutTN6lJs5yWKZjBDQunY xhcHNlOiBj h7euGYCrZVukRQ1jjIrjV4 RajXK5MMZrl9w5Ql15cDW+ XDQpNAX8vLeqSZxdp479Jt Djm9hkTSD3 fQDcXDxyPKK6N94ev4D7RP MxLLYdHXC3tTZ9eM6nsUln gbtnL3WalJPkTgY7SGZ5rY CnqW1edVsm rjdmaT1zLnx+L91WYY8ZQU ZAJQ3WMhj4A6RiHeldaFU+ KP07CJAxBL50jADaiPHzn6 dkxWb3JoWf BOBgSFW4hGrjRHdwi8QsLZ FkB60msJXyh4P4TLUugYka bFEkVqNdpXF0eI0vWIalwq xlv0sdshxk Hougp2pjsz80gA34A77aSO qpTQOzUMA2XGNqXZIjgBng pg4ffA3vSj6+CHvqz8ony1 zemPl6RiJi AUNqbtBeuJpwJYI2i0LuHk 66M2TooBxia4RwHhh2uf38 rPXic1O0mCL5SQzaNXRwfI 2eKMisWtS9 IDCcUtSrpM95vDYxSXlaEe 9dhBwpiBfdYM4pQGUqlcxx LYIrxL5cLUIsvQCowDmbFH 4wNTBpbjtm k866NxHhZBB7INHfeXFfP8 RlaT6nQhCdRBVaEOKyQ2It hRAbZWrxW096VNeuUiF8JA GzxfApO8So BDIsuYewQzR4k5C9Si7Vn1 RpfysjGYZ4YZsuALFgMsJc ZrWfKbJ0R5ExYer5RKYbzT rcRF4tZ4Xj EBXzdaklchcmsMV9SVAlPR XhgA44yFJkMLzwTo8hy9F5 f286NJQnHMPrqB96Oy2dzZ ogMTBwdCBU wZ7laqwzw9rtagvbFcWbOH DyQOm3YWm4QMLjhXmlAfRk EYL9SwC6RVM1lCCmtB8czY xxkcbunH3u Oyc+Q67hkJ6sGXP0PWW2fd mmHMBdarKyQS88BC74N8Bu PjwvdGFibGU+PGRpdiBzdH ubRJ7nKoSa t5qjt2JjVWjnK0SnKYCtMR pjNgp5NJUdXWX5hUX8yW7i UXDdSWmnt2W7tFX8N0Aqwe Fpgf8rj3ux DRGwBXiaB11hvROsa3X3KU CmkZI2GPTlkSwoFtOzvU57 Oyc+XCFwaZhbl5LnTeiym9 ier6mtrXf6 QmObIJCjqzFfsOdlUGP9k0 BlUc33X52yOGhuWOFgERIz FZQeEYWadFutwa3ouN1bPp 8+PGNvbCB3 wAN0kH4kARXcHuA6IJzcB3 25PjJdmHHoRfryz8axg3oq xZj3ViDbPFNtxcAxeEukKF E6i0ZeOi41 E02pHUxeIJEuEMNlLDZnWT YmdUhpuv7qwD7gIp7+PC9j z8suej42qJ64qED+PHRkIH U5uZjrBLdd TJGxwA2mZXyePyZ2WACvMh MjdB90gTGtBVaiKw8lrFgv oAylFM6hWICtjbfok699Nu Yax1vuBPGk qHCkZTgzQSM4A76hg5W4WV XzUBIvJCD6kVQ2wH1uvUuj bjogbGVmdDsgdmVydGljYW epOYfiJ546 IHRvcDsnPlBhdGllbnQgTm HdFTc9F8QxOkg3BKSayByt WR0auKSsLAmmTc9vzDnpuB vxHY8pJSLp qnqip980CsEle4rdJPWbwC CiUYifVYS9V73fc7A1OKGh FHUdBJG0eEZ1fH9vcOrxng ogbGVmdDsg tmCucHbsYSfuIRtqL972AK RvcDsnPkJpcnRoIERhdGU6 RS36VY36cZBmt7K1sTK7G0 BhZGRpbmct ldtyjUL2FAGnMCOxcN99Mt 2iiKxeCb2bPIFyYWF3AJFt oLLiN9CczE6cYfMbUUZsLZ PjN1OroMTt ZPedI475JHduOhC5CJHazl NrG0KyVMDspUskNwU5b0F1 Jp3IV4Q3TG95DE70pEEym7 R6aWN7X5Fs FGAxntquugjcsAR8ZMQnAN NzsI91Il9apBvfPy7cJGSh YDI5AOVlsNHuC8NtsX9wAw AjMDAwMDAw G2AszBIoHCdgN312BQydSt G3TPVitkIpA1OdXOBpmHym UzC1w8G3Ao1JPFy2FD38MW 48zYRhw8I6 iJV2C0IoLMUrlpjecvayrS X9YQSlSWAfmV36Hz8cdRua Xw7tXCTdEIB8CVUubNPlC4 WipZ4qBiGq DUPuCSJnX0VldVUjDXnzD3 39NKvoOvZ1EIPrrgEvH5Yk UIHgeWqzOsB1i1U7Ul1WTA QpXF68UJB0 qGQ0AN73HW98X5VpBxobaL FibGU+PHRhYmxlIHdpZHRo QFreLLNfHxNjjWrdCA6bFy 9yZGVyLWNv vJmbhYAjVpVyp8exTURcJF wfQF1waKkeG0IvuZS4NYXx m2z6Eg72S44lH2YrbAU+PG ZluFF4eKV4 lA7bVjEiCpN1QCheH015Va PovWUfMdygu7faj9uccQk1 EzY4EGJsjwKvvJhtCHI7g9 HqVf21C21j IHdpZHRoPSIxNSUiIHZhbG sbzv8ngL3cHl3+PGNvbCB3 vCV5dN7iCwDtLyM3RJxrY3 49InRvcCIv Qjjoo4qkv9bobDh0EoXyNP CrgpColHfiSZD4l1DbXg04 F8SqsVzvj5JhTuu1cz64sB Xzr0T8eCW4 U8WbSVFivyhbhGHueJtjJM 4qQAAxhilqVSRqgS6lGUGk V8u0HnVfQqX9UJyqZ9Ootr F0QRLjfJRk LLmhYAJ3T29fc7M2PJHzIN XlGYZ7tWB5eP0atNtftmiv bGVmdDsgdmVydGljYWwtYW xpC539JDFf nEvyFDSggL9gYRVyoOAgmZ zmXR6aVGYlyndzUckVNnYE VX2gWKEJX0yEYRMAFJ31ED 29bSLna5G2 jIC7W7RhMOBbibqlgnogjE W0IVGuZMVmfZ86wJMcSOqn Az4op1O5s625DUJlJZQaeG 72Gl5vyOmf DWHdeHSAtT3pickps5wptb jjKeJjNOCqEFl2WId7JGOj aJvzRcPgZYO2WmC7BQM2vN YlyS0olAfs dvkcxQ1kIic+MDcvMTIvMT d6YFqlgPJ+PJEcOLX1zHff RQosFUVfnP6aRWBzF4n5Cq XvXyC7PDqo P8IvESZurptrBe39zG3tKs ZiXgJ7OTeqR6ArgrB1FNBk yQZsLAkoNRP9C45im7G6MV MwMDAwMDA7 dPX7oK6naMyzpdypaHUlcG bupuDqxCgpTFoxHZyaJ453 BKJfpSspWmT3BLmbRENeNN 05UY95rPCq j5Y4rKS2F7DgLUXpvqzoas etmAG7FKBmIUOqlD78lUWb BDzuAq5xd4X4q233SOUhON QdwO42Ps3h tJsxEUVfxVZFxV2elutzt3 fugoyyVhNtETPzTAx3NAw9 JWVivBnkDlCuYFZ7JoN8XE W4yCZafP8e qMkwcyxpqY2vLsx+RkVNQU iMTO47TR29zTWnp8Q4vIV1 U1HyDWZfweliedcvpWG1AR QtIYXzkU19 tUUqEYpyWl9sa3D4p409AC LiFQGjzX44Jp0cxXseWIVq uCFBqX3fygiux7zpdhdyRg AwMDAwMDt0 GUn0HFFnhKfmGdRkXQC2Mc O4DQM8mIXwxH4pdOxkscpx yQ8oCzh+R7J9W6FyFlxswP I+NI50LPJv CN18pFCbuBTie1jefXr8Lj YzDJXjXQR5eUvcKYajv3Zp KDDdY53pvYKws2A2IIHeqC xhcHNlOyBl wSZ3pO7tOImmxkfgb1rqwg pjAyxln0qjlf77wD17M74j IHdpZHRoPSIzMCUiIHZhbG ioyd7pvQ6g Ii8+MTYzxDD5iBN2fG8zAx DiTzF9PMdwY198AnOwnFCz Axged9ixa9mdxMr4XsJiVP IgdmFsaWdu JMS6q5HgAy06R22bSBlvCN LyIZKyAXMsAAIacQkuhn4h tB0nIg9+WD7nu6vklk48kT 48dHI+PHRk EPV2pQygCAlqIKKptC8lDL haSgM7UEYqHsCddF68xOPb INnlHs8fmEnfdDvcTY3qDY Hggvrwy504 OvMir0zwKDAxlFHeBKctTZ B0F27ul8K0GAGjODWhSEO4 lXY4mV3zdVcluozvbBMgrN sgdmVydGlj GYnnZKhcZ012GUQyvRxuNs OofUNdU7ahxxWICY5jTmdj dGQ+PTCaZPP6dThzEXtpRR StaP6zHSBr D8z4LdGpJcE4BEsdA0Nunc E2DTXtbFAfSLJvaMWVrV1j ytvzj3tkutfjIpPqHHCfWY p1FMt4FCWv jRwlSnSrHCD7JpW3EFB2rY CbnX3zwZhkzseacV5cFno+ RklOOjwvdGQ+DONgLIJ2nX xlPSdwYWRk iS0mAQRjU4o9OvBoJlV2GK rwC4EvlrN5BHUsmXJwHIVe eEFKwH2tkcico4rwwmvmGu AwMDAwMDt0 NUx1OZSnzTveZbCyJVU3Zs U4LGJ9cXIlcY7ktSovmubh hA3qJdv+TVJOOjwvdGQ+PH PcENN0fCzf WQyzJBVzoC0sEPNjM5n2Qz UsJzD5NVajZ5TftqG6TMLn lVWeGOSuqLLAvB4cszduh1 xvcjogIzAw TLGcZPl4TEc0UATveWxhCg YdPLB1GaC9HGT1fUKlwS1s bGlhiiwjuN4cRvs+UGF5ZX Q2PI40UY38 P6YpSgxavWFzqHF+PHRhYm xlIHdpZHRoPScxMDAlJyBz gZmrDG1eCp9dCBHwJBTvzX xhcHNlOiBj b2x (more content not included)... Normal [facility] Provider Orderson 11-14-2022 Provider Orders [id number]#1.0 0OTGTIFF Normal [facility] .Auto Diff 1on 11-13-2022 Auto Cache % 7 % Normal 12 [facility] Comment on above: Performed By: #### 6 699356, 1550889, 69415899, 0343239515, 9615076600, 0572026, 5739650179 #### [facility] (DEFAULT) [address] [place] [address] 42350 Baso Abs# 0.1 x10 Normal 0.0-0.2 [facility] Comment on above: Performed By: #### 6 304430, 8174668, 55618303, 0691611369, 6860667469, 9999037, 7643996778 #### [facility] (DEFAULT) [address] [place] [address] 35258 Basophils/100 WBC (Bld) 0.8 % Normal 0.2-2.0 [facility] Comment on above: Performed By: #### 6 366654, 7809146, 89600778, 3111876460, 0308557859, 1746827, 2653952889 #### [facility] (DEFAULT) [address] [place] [address] 40197 Eos Abs# 0.1 x10 Normal 0.0-0.4 [facility] Comment on above: Performed By: #### 6 705826, 0490780, 25495605, 7999544789, 3999225053, 9636263, 0394702398 #### [facility] (DEFAULT) [address] [place] [address] 18761 Eosinophils/100 WBC (Bld) 2.0 % Normal 0.9-4.0 [facility] Comment on above: Performed By: #### 6 313350, 9377944, 64366189, 3384927974, 8930882977, 2693775, 5141372178 #### [facility] (DEFAULT) [address] [place] [address] 20252 Lymph Abs# 1.5 x10 Normal 1.3-2.9 [facility] Comment on above: Performed By: #### 6 009201, 2165544, 35008802, 2695739743, 4118613724, 5376780, 8334084303 #### [facility] (DEFAULT) [address] [place] [address] Lymphocytes/100 WBC (Bld) 21 % Normal 14-48 [facility] Comment on above: Performed By: #### 6 407094, 8174107, 51765392, 9539209271, 7800364605, 0313004, 4649522708 #### [facility] (DEFAULT) [address] [place] [address] 02571 Cache Abs# 0.5 x10 Normal 0.0-0.8 [facility] Comment on above: Performed By: #### 6 766383, 7671762, 91717391, 7979581066, 7382478197, 7100754, 2723808228 #### [facility] (DEFAULT) [address] [place] [address] Neut Abs# 4.8 x10 Normal 1.5-9.2 [facility] Comment on above: Performed By: #### 6 115590, 0363210, 62011852, 2035642129, 0119669466, 9939343, 0743633616 #### [facility] (DEFAULT) [address] [place] [address] Neutrophils/100 WBC (Bld) 69 % Normal 44-88 [facility] Comment on above: Performed By: #### 6 697008, 6974384, 34964991, 5962661023, 5641950638, 1790290, 0098921735 #### [facility] (DEFAULT) [address] [place] [address] 32134 CBC w/ Auto Diffon 3 Erythrocyte distribution width (RBC) [Ratio] 14.9 % Normal 11.5-15.0 [facility] Comment on above: Performed By: #### 6 716781, 8093222, 23659938, 0080960680, 8565249412, 4825919, 3031354800 #### [facility] (DEFAULT) [address] [place] [address] Hematocrit (Bld) [Volume fraction] 35.5 % Normal 33.7-40.4 [facility] Comment on above: Performed By: #### 6 002087, 0418179, 95963495, 6843926708, 3469839056, 7801060, 4658328738 #### [facility] (DEFAULT) [address] [place] [address] Hemoglobin (Bld) [Mass/Vol] 12.1 g/dL Normal 11.3-15.9 [facility] Comment on above: Performed By: #### 6 720232, 5846537, 06962086, 9415577890, 8114612014, 8815917, 0469131771 #### [facility] (DEFAULT) [address] [place] [address] Man Diff? Auto Invalid Interpretation Code [facility] Comment on above: Performed By: #### 6 060109, 4105653, 42787817, 1047417084, 2435151843, 6339232, 3709704310 #### [facility] (DEFAULT) [address] [place] [address] MCH (RBC) [Entitic mass] 29 pg Normal 24-34 [facility] Comment on above: Performed By: #### 6 863815, 5186888, 42398552, 3001823893, 8585645835, 9732158, 0209128549 #### [facility] (DEFAULT) [address] [place] [address] MCHC (RBC) [Mass/Vol] 34 g/dL Normal 26-37 [facility] Comment on above: Performed By: #### 6 732416, 3879946, 70621769, 9122236078, 1953787533, 3452501, 2021441051 #### [facility] (DEFAULT) [address] [place] [address] 92907 MCV (RBC) [Entitic vol] 84 fL Normal 81-100 [facility] Comment on above: Performed By: #### 6 758699, 5270649, 88368359, 4892082953, 5240768342, 2986181, 9033657051 #### [facility] (DEFAULT) [address] [place] [address] Platelet 265 x10 Normal 138-427 [facility] Comment on above: Performed By: #### 6 546375, 6817546, 16704811, 3058877585, 4943534745, 5920332, 9482723320 #### [facility] (DEFAULT) [address] [place] [address] Platelet mean volume (Bld) [Entitic vol] 6.9 fL Normal 6.3-10.2 [facility] Comment on above: Performed By: #### 6 382257, 3477588, 18513997, 5935538507, 1780346668, 8521676, 4529827606 #### [facility] (DEFAULT) [address] [place] [address] RBC 4.22 x10 Normal 3.70-5.30 [facility] Comment on above: Performed By: #### 6 194074, 6196771, 30649255, 3436717093, 6076508092, 1549265, 0171810096 #### [facility] (DEFAULT) [address] [place] [address] WBC 7.0 x10 Normal 3.5-10.5 [facility] Comment on above: Performed By: #### 6 163582, 1000278, 35873628, 5150925623, 4559304689, 7126910, 1658927237 #### [facility] (DEFAULT) [address] [place] [address] CMP Standardon 11-13-2022 eGFR Non AA >60 Invalid Interpretation Code [facility] Comment on above: Performed By: #### 6 486086, 0293417, 02995793, 8960849067, 8558151851, 8477216, 7734539636 #### [facility] (DEFAULT) [address] [place] [address] eGFR AA >60 Invalid Interpretation Code [facility] Comment on above: Performed By: #### 6 775221, 6895218, 23525953, 3516473761, 3300215728, 0976204, 4446109719 #### [facility] (DEFAULT) [address] [place] [address] Albumin [Mass/Vol] 4.0 g/dL Normal 3.5-5.0 [facility] Comment on above: Performed By: #### 6 119666, 3765695, 62192176, 2214536927, 9018134746, 9748830, 6674547481 #### [facility] (DEFAULT) [address] [place] [address] Alk Phos 61 IU/L Normal 32-91 [facility] Comment on above: Performed By: #### 6 057484, 8012709, 99246101, 7343816976, 9087109682, 2643273, 9651686500 #### [facility] (DEFAULT) [address] [place] [address] ALT [Catalytic activity/Vol] 18.0 U/L Normal 14.0-54.0 [facility] Comment on above: Performed By: #### 6 535913, 1371921, 11353280, 7960472247, 5356405146, 8060890, 7132635560 #### [facility] (DEFAULT) [address] [place] [address] 96718 AST [Catalytic activity/Vol] 19 U/L Normal 15-41 [facility] Comment on above: Performed By: #### 6 653913, 1684955, 98949493, 7792843549, 0287118484, 5442641, 4575461830 #### [facility] (DEFAULT) [address] [place] [address] 62686 Bili Total 0.6 mg/dL Normal 0.3-1.2 [facility] Comment on above: Performed By: #### 6 179683, 4282253, 25548206, 4833280886, 4713618023, 6243385, 3928981375 #### [facility] (DEFAULT) [address] [place] [address] 08696 Calcium [Mass/Vol] 8.5 mg/dL Low 8.9-10.3 [facility] Comment on above: Performed By: #### 6 379490, 0142312, 43019637, 9290772209, 3044506778, 4897914, 8683640026 #### [facility] (DEFAULT) [address] [place] [address] 54593 Chloride [Moles/Vol] 107 mmol/L Normal 101-111 [facility] Comment on above: Performed By: #### 6 005548, 4555234, 81904056, 3623497789, 5542505721, 6040331, 3079689594 #### [facility] (DEFAULT) [address] [place] [address] 52184 CO2 [Moles/Vol] 27 mmol/L Normal 21-32 [facility] Comment on above: Performed By: #### 6 430382, 4909825, 72393578, 5413583216, 0214216375, 5511878, 9338877634 #### [facility] (DEFAULT) [address] [place] [address] 17603 Creatinine [Mass/Vol] 0.83 mg/dL Normal 0.60-1.30 [facility] Comment on above: Performed By: #### 6 179770, 6288383, 53181636, 1676155600, 4801530226, 2353942, 2066237436 #### [facility] (DEFAULT) [address] [place] [address] 41218 Glucose [Mass/Vol] 155.0 mg/dL High 74.0-118.0 [facility] Comment on above: Performed By: #### 6 406321, 7579335, 22967583, 4342276087, 1906183242, 6868058, 2747105867 #### [facility] (DEFAULT) [address] [place] [address] 51184 Potassium [Moles/Vol] 3.8 mmol/L Normal 3.6-5.1 [facility] Comment on above: Performed By: #### 6 170565, 7150653, 96493797, 0988942614, 8363368970, 0283317, 9786805792 #### [facility] (DEFAULT) [address] [place] [address] 63134 Protein [Mass/Vol] 6.6 g/dL Normal 6.5-8.1 [facility] Comment on above: Performed By: #### 6 225736, 5711731, 42335567, 1738898545, 8377833647, 6354640, 2017121660 #### [facility] (DEFAULT) [address] [place] [address] 76044 Sodium [Moles/Vol] 137.0 mmol/L Normal 136.0-144.0 [facility] Comment on above: Performed By: #### 6 707543, 1281678, 44098100, 8933199246, 7884558877, 6905083, 7070371488 #### [facility] (DEFAULT) [address] [place] [address] 20008 Urea nitrogen [Mass/Vol] 10 mg/dL Normal 8-26 [facility] Comment on above: Performed By: #### 6 916394, 4061983, 34316695, 4784206087, 5794506142, 0777735, 2654331140 #### [facility] (DEFAULT) [address] [place] [address] 80622 Albumin/Globulin [Mass ratio] 1.5 {ratio} Normal 1.4-2.6 [facility] Comment on above: Performed By: #### 6 585193, 7271566, 30112041, 1930810225, 9052099552, 8507611, 3907596000 #### [facility] (DEFAULT) [address] [place] [address] 75804 Anion gap [Moles/Vol] 6.8 mmol/L Normal 5.0-19.0 [facility] Comment on above: Performed By: #### 6 260374, 9738707, 56959047, 8723812768, 5101444614, 0525336, 0219616666 #### [facility] (DEFAULT) [address] [place] [address] 33028 Globulin (S) [Mass/Vol] 2.6 g/dL Normal 1.5-4.3 [facility] Comment on above: Performed By: #### 6 176740, 5321123, 31606504, 4080677917, 8362125184, 5997913, 7845614055 #### [facility] (DEFAULT) [address] [place] [address] 65773 Osmolality 276 mOsm/L Invalid Interpretation Code [facility] Comment on above: Performed By: #### 6 569374, 8811221, 39285707, 4798217572, 6904180027, 6490510, 0166765487 #### [facility] (DEFAULT) [address] [place] [address] 32920 Urea nitrogen/Creatinine [Mass ratio] 12.0 mg/mg Normal 4.6-16.2 [facility] Comment on above: Performed By: #### 6 695955, 9958471, 99000610, 7048215789, 4885461452, 2985803, 6159355704 #### [facility] (DEFAULT) [address] [place] [address] 87819 Free T4on 11-13-2022 Free T4 [Mass/Vol] 0.71 ng/dL Normal 0.61-1.12 [facility] Comment on above: Performed By: #### 6 845589, 1745845, 34905776, 5586437740, 0654996650, 1490273, 8328754372 #### [facility] (DEFAULT) [address] [place] [address] 91028 HgbA1c Standardon 11-13-2022 .Hb 13.7 Invalid Interpretation Code [facility] Comment on above: Performed By: #### 6 572148, 0238995, 11284932, 2087816435, 4100184945, 7588676, 6113490492 #### [facility] (DEFAULT) [address] [place] [address] 58844 .Hgb A1c 0.72 g/dL Invalid Interpretation Code [facility] Comment on above: Performed By: #### 6 393945, 9714477, 32023173, 6751631788, 7595797386, 4780372, 7316957053 #### [facility] (DEFAULT) [address] [place] [address] Glucose [Mass/Vol] 151 mg/dL Invalid Interpretation Code [facility] Comment on above: Performed By: #### 6 833269, 2933453, 89840372, 9169235185, 7861566611, 4486927, 2467437938 #### [facility] (DEFAULT) [address] [place] [address] HbA1c (Bld) [Mass fraction] 6.9 % High 4.6-6.2 [facility] Comment on above: Performed By: #### 6 132305, 1760610, 96673488, 5209347943, 0773219818, 0375557, 4189345386 #### [facility] (DEFAULT) [address] [place] [address] Lipid Panel Standardon 11-13 Cholesterol [Mass/Vol] 175.0 mg/dL Normal 66.0-200.0 [facility] Comment on above: Performed By: #### 6 563700, 2635251, 43792190, 3815790404, 8389690176, 4727880, 6177813015 #### [facility] (DEFAULT) [address] [place] [address] 68003 Cholesterol in HDL [Mass/Vol] 34 mg/dL Low 40-71 [facility] Comment on above: Performed By: #### 6 273749, 8834377, 53095708, 2186202296, 4808026025, 7045786, 5977300430 #### [facility] (DEFAULT) [address] [place] [address] 03031 Triglyceride [Mass/Vol] 131.0 mg/dL Normal 0.0-150.0 [facility] Comment on above: Performed By: #### 6 044521, 5443158, 63135739, 4153802897, 4140286927, 8697360, 4127548569 #### [facility] (DEFAULT) [address] [place] [address] Cholesterol in LDL [Mass/Vol] 115 mg/dL High 1-100 [facility] Comment on above: Performed By: #### 6 253181, 4699447, 16286123, 6931824442, 4750734742, 0173614, 1717839554 #### [facility] (DEFAULT) [address] [place] [address] 05554 Cholesterol.total/Carol Ann sterol in HDL [Mass ratio] 5.1 {ratio} High 0.0-4.5 [facility] Comment on above: Performed By: #### 6 865712, 3900698, 87530451, 5280558472, 0916513836, 7302442, 5288850278 #### [facility] (DEFAULT) [address] [place] [address] VLDL. 26 mg/dL Normal 5-40 [facility] Comment on above: Performed By: #### 6 459801, 2675197, 51914771, 6633950123, 2834308651, 7866107, 3224037919 #### [facility] (DEFAULT) [address] [place] [address] 46583 TSHon 11-13-2022 TSH Qn 2.33 m[IU]/L Normal 0.45-5.33 [facility] Comment on above: Performed By: #### 6 530537, 8126407, 25512184, 3348808365, 6591658965, 5509012, 1448487415 #### [facility] (DEFAULT) [address] [place] [address] 12369 Initial Visit (Otolaryngolog y)on 06-05-2022 Initial Visit [...] last year [facility] Work Phone: [phone] Tobacco use status CPHS a) Yes M [facility]tol[facility] Work Phone: [phone] Tobacco Screening. Yes [facility] l[facility] Work Phone: COVID-19, PCRon 04-25-2021 SARS-CoV-2 (COVID-19) RNA FALLON+probe Ql (Unsp spec) Not detected Normal Not Detect [facility] Comment on above: Result Comment: Test ing was performed using Quisk SARS-CoV-2 Assay. Negative results do not preclude [...] oropharyngeal and mid-turbinate specimens. Patient Fact Sheet: https://www.fda.gov/media/563508/download Provider Fact Sheet: https://www.fda.gov/media/465668/download FDA Specimen Types Link: https://www.fda.gov/medical-devices/ fxjgzxxjxpa-zefge-24-ymp-wegadjb-mtyrvvt/dcug-osyowzy-pesl-cov -2 Methodology: RT-PCR Performed By: #### C OVB #### [facility] [address] [place] [id number] Coding Summary.on 08-31-2020 Coding Summary. CODING DATE: 08/31/2020 FINAL [facility] STATUS: Home (Routine DC) PAYOR: Medicaid EA [...] F17.210 Nicotine dependence, cigarettes, uncomplicated Z79.899 Other senior living (current) drug therapy PYMT PROC [facility] STAT DESCRIPTION DOCTOR NAME DATE NOTE: The code number assigned matches the documented diagnosis and / or procedure in the patient's chart. However, the narrative phrase printed from the coding software may appear abbreviated, or result in slightly different terminology. Revised Coded By: Miranda Gan Revised Date Saved: 08/31/2020 12:26 pm Normal [facility] Discharge Instructionson Discharge Instructions [id number]#1. 00CD:127 Normal [facility] EMS Documentationon 08-24-20 20 EMS Documentation [id number]#1.0 0CD:127 Normal [facility] B hCG Qualon 08-23-2020 Beta hCG Ql Negative Normal [facility] Comment on above: Performed By: #### 1 9198289, 2639088, 5805738, 2755184, 544361168, 1124330, 701187827, 47958796, 1782192, 0472372, 1483029, 8011320, 22640585 ####[facility] [address] [place] [address] [facility] 08-23-2020 Beta hydroxybutyrate [Moles/Vol] 1.04 mmol/L High 0.02-0.27 [facility] Comment on above: Performed By: #### 1 7018519, 6712770, 1161625, 3272284, 036825002, 1727261, 771802763, 55308516, 0889930, 2285699, 0548467, 6992911, 02804069 ####[facility] [address] [place] [address] CT Abdomen/Pelvis w/ Contras ton 08-23-2020 CT [...] 300 Contrast amount in ml's: 100 Normal [facility] ED Clinical Summaryon 2019 ED Clinical Summary [place] [id number] ED Clinical Summary Person Information Name: MARY PANIAGUA[place] Age: 35 Years : 1985 Sex: Female Language: Vietnamese PCP: MANNIE LEVY CNP Marital Status: Single Visit Id: Visit Reason: Vomiting; Nausea; Epigastric Pain; EPIGASTRIC PAIN, INTRACTABLE UPPER ABOMINAL PAIN Speciality: Acuity: 3 Enc Type: Observation Med Service: Medical Arrival: 08/22/2020 20:19:32 Discharge: LOS: 000 14:55 Checkin: 08/22/2020 20:19:32 Checkout: 08/23/2020 11:14:05 Dispo Type: Admitted as IP to this [facility] EVENTS: Event Name Event Status Request [...] 11:06:57 Patient Care Request 08/23/2020 11:06:57 ADDRESS: [address] [place] [address] [facility] NOTES: MEDICAL INFORMATION: Prescriptions Given: PATIENT EDUCATION INFORMATION: Instructions: Follow up: DIAGNOSIS: 1:Epigastric abdominal pain; 2:IBS (irritable bowel syndrome); 3:Anxiety Normal [facility] ED Note-Physicianon --20 20 ED Note-Physician [...] vomiting. She states that she sees a public relations manager in [place]. She has not seen this public relations manager for quite some time. She states that [...] Appropriate mood & affect. Integumentary: Warm, Dry, [place] Medical Decision Making I rechecked the patient shortly after 12:30 AM. Still complains of the epigastric discomfort. She states she has had this frequently in the past and has been seen by a public relations manager in [facility]. They believe that it does relate [...] 2 mg/mL Inj, 2 mg, IV Push [id number] [F], 1000 mL, IV promethazine 25 mg/mL Inj, 12.5 mg, IV Push Disposition Plan Patient Discharge Condition Unchanged Discharge Disposition Admit to observation Discharge Prescription List Prescriptions No active prescription medications Follow-up No qualifying data available Attestation Patient signed out to the attending emergency room physician at 2325 Patient was treated and evaluated by the Physician Title Attorney. The attending physician was in the Emergency [...] (08/22/20:24:00) Lymph Auto: 7 % Low (08/22/20:24:00) Cache Auto: 4.8 % (08/22/20:24:00) Eos Auto: 0.6 % (08/22/20:24:00) Basophil Auto: 0.9 % (08/22/20:24:00) Neutro Absolute: 12.5 E9/L High (08/22/20:24:00) Lymph Absolute: 1 E9/L (08/22/20:24:00) Cache Absolute: 0.7 E9/L (08/22/20:24:00) Eos Absolute: 0.1 [...] Diagnostic Results No qualifying data available. Normal [facility] Comment on above: Result Comment: Elec tronically Signed By: Pilo Castillo PA-C\.br\Date and Time Signed: 08/22/20 23:21 EST\.br\Electronically Co-Signed By: Blaine Lei MD\.br\Date and Time Co-Signed: 08/23/20 06:27 EST ED Patient Education Noteon 08-23-2020 ED Patient Education Note Normal [facility] ED Patient Summaryon 020 ED Patient Summary [place] [id number] Patient Discharge Instructions Person Information Name: MARY PANIAGUA Age: 35 Years Arrival Date: 08/22/2020 20:19:32 Discharge Diagnosis: 1:Epigastric abdominal pain; 2:IBS (irritable bowel syndrome); 3:Anxiety Primary Care Physician: MANNIE LEVY CNP Provider Information Primary Provider: Blaine Lei MD Advanced Automation Developer:Pilo Castillo PA-C The exam and treatment you received in the Emergency Department were for an urgent problem and are not intended as complete care. It is important that you follow up with a doctor, nurse practitioner, or physician?s personal care assistant for ongoing care. If your symptoms [...] opioids can be used to help relieve iradqsrk-wh-muanft pain and are often prescribed following a [...] be struggling with addiction, tell your health resident care supervisor and ask for guidance or call [facility] National Helpline at 7-204-008-AGKX. v Source: [place] Department of Health and Human Services/Center for Disease Control & Prevention [facility] Medications Given: Medication Dose Route Sodium Chloride 0.9% 1000.00 mL IV Left Arm famotidine 20.00 mg IV Push Left Antecubital Center [place] morphine 2.00 mg IV Push Left Arm [...] to serve you. Thank you for choosing [facility] Patient Education Materials: AJY Nunez RACHEL , have received the following patient education materials/instructions and have verbalized understanding: Patient Education Materials: Follow-up Instructions: Patient Signature Date Clinician/Nurse Signature ___ Date 08/23/2020 11:14:07 Normal [facility] [id number] 08-23-2020 HbA1c (Bld) [Mass fraction] 6.4 % High <=5.9 [facility] Comment on above: Performed By: #### 1 [id number], [id number], [id number], [id number], [id number], [id number], [id number], [id number], [id number], [id number] ####[facility] [id number] [place] [address] History and Physicalon 08-23 History and Physical [...] (08/22/20:24:00) Lymph Auto: 7 % Low (08/22/20:24:00) Cache Auto: 4.8 % (08/22/20:24:00) Eos Auto: 0.6 % (08/22/20:24:00) Basophil Auto: 0.9 % (08/22/20:24:00) Neutro Absolute: 12.5 E9/L High (08/22/20:24:00) Lymph Absolute: 1 E9/L (08/22/20:24:00) Cache Absolute: 0.7 E9/L (08/22/20::00) Eos Absolute: 0.1 [...] made to ensure accuracy, however, inadvertently computerized valve repairer mistakes may be present. Problem List/Past Medical [...] she is in agreement. Was able to career development counselor her on smoking cessation. She should follow-up with her primary care physician for an EGD if needed. No changes are being made to her chronic medications at this time. *Please place this as my admission H&P as well as discharge summary* Normal [facility] Comment on above: Result Comment: Elec tronically Signed By: KSENIA MCINTYRE, Romario\.br\Date and Time Signed: 08/23/20 16:30 EST Inpatient Clinical Summaryon 08-23-2020 Inpatient Clinical Summary [place] [address] Clinical Summary Person Information: Name: MARY PANIAGUA Age: 35 Years : 1985 Sex: Female PCP: MANNIE LEVY CNP Marital Status: Single Race: White Ethnicity: Non- or Language: Vietnamese Visit Id: Visit Reason: Vomiting; Nausea; Epigastric Pain; EPIGASTRIC PAIN, INTRACTABLE UPPER ABOMINAL PAIN Speciality: Acuity: Enc Type: Observation Med Service: Medical Arrival: 08/22/2020 20:19:32 Discharge: Dispo Type: Admitted as IP to this Hosp Address: [address] [place] [address] Provider Notes: Diagnosis: 1:Epigastric abdominal pain; 2:IBS [...] With: Address: When: MANNIE LEVY CNP [address] [address] [phone] Within 1 to 2 weeks Patient Education Information: Low-FODMAP Eating Plan; Diet for Irritable Bowel Syndrome Normal [facility] Inpatient Patient Summaryon 08-23-2020 Inpatient Patient Summary [place] [id number] Patient Discharge Instructions PERSON INFORMATION Name: MARY PANIAGUA Date of : 1985 Current Date: 08/23/2020 16:37:09 PHYSICIANS Admitting Physician: Ronaldo Soni MD Primary Care Physician: MANNIE LEVY CNP PCP Phone Number: [phone] Comment: Discharge Diagnosis: 1:Epigastric abdominal pain; 2:IBS [...] results: None Follow up: With: Address: When: MANNEI LEVY CNP [address] [facility] [address] [place] [address] [phone] Within 1 to 2 weeks In the [...] to follow. Work with a diet and institutional nutrition consultant (dietitian) to make a low-FODMAP eating plan [...] Gluten-free pasta, bread, or cereal. Rice noodles. Nesbit tortillas. Vegetables ? Eggplant, zucchini, cucumber, peppers, green beans, [place] sprouts, cruz sprouts, lettuce, arugula, kale, [place]er chard, spinach, candelario greens, bok esthela, summer [...] amounts of goat cheese, brie, mozzarella, parmesan, british, and other hard cheeses. Meats and other [...] 04/07/2018 Document Revised: 07/24/2018 Document Reviewed: 04/07/2018 [employer] Patient Education ? 2019 [employer]. Diet for Irritable Bowel Syndrome When you [...] your health care provider and diet and institutional nutrition consultant (dietitian) to find the eating plan that [...] care provider if you should take an qcly-hrh-owsadim probiotic to help restore healthy bacteria in [...] symptoms worse: ? Fatty foods, such as sierra leonean fries. ? Foods that contain gluten, such [...] for Functional Gastrointestinal Disorders: www.iffgd.org ? National [place] of Diabetes and Digestive and Kidney Diseases: [...] Your health care provider or diet and institutional nutrition consultant (dietitian) may recommend that you eat more foods that contain fiber. This information is not intended to replace advice given to you by your health care provider. Make sure you discuss any questions you have with your health care provider. Document Released: 10/31/2004 Document Revised: 12/01/2019 Document Reviewed: 04/14/2018 [employer] Patient Education ? 2019 [employer] Medication Leaflets: You may receive a survey from [employer] asking you to rate your care experience. Your feedback is important and will help us understand what we do well and how we can improve the quality of care we provide to you, your loved ones and our community. It?s an honor to serve you. Thank you for choosing [facility] Normal [facility] Magnesiumon 08-23-2020 Magnesium [Mass/Vol] 1.7 mg/dL Normal 1.3-2.4 Fish [facility] Comment on above: Performed By: #### 1 [id number], 2513772, 5956288, 6871422, 997337558, 1095166, 865466027, 29434552, 4246367, 2880364, 0583122, 3083896, 37352700 ####[facility] [address] [place] [address] Monitor Recordon 08-23-2020 Monitor Record 170 20 [id number]#1. 00CD:127 Normal [facility] Monitor Record 170 20 [id number]#1. 00CD:127 Normal [facility] Monitor Record 170.. 20 [id number]#1. 00CD:127 Normal [facility] Monitor Record [id number]. 20 [id number]#1. 00CD:127 Normal [facility] Monitor Record 170.. 20 [id number]#1. 00CD:127 Normal [facility] Monitor Record 170.71. 20 [id number]#1. 00CD:127 Normal [facility] Monitor Record 170.. 20 [id number]#1. 00CD:127 Normal [facility] Monitor Record [id number] 20 [id number]#1. 00CD:127 Normal [facility] Monitor Record [id number] 20 [id number]#1. 00CD:127 Normal [facility] Patient Education - Texton 1 Patient Education - Text Gastroenterology Low-FODMAP Eating Plan FODMAPs (fermentable oligosaccharides, disaccharides, monosaccharides, and polyols) are sugars that are hard for some people to digest. A low-FODMAP eating plan may help some people who have bowel (intestinal) diseases to manage their symptoms. This meal plan can be complicated to follow. Work with a diet and institutional nutrition consultant (dietitian) to make a low-FODMAP eating plan [...] Gluten-free pasta, bread, or cereal. Rice noodles. Nesbit tortillas. Vegetables ? Eggplant, zucchini, cucumber, peppers, green beans, [place]ahma sprouts, cruz sprouts, lettuce, arugula, kale, [place]er chard, spinach, candelario greens, bok esthela, summer [...] amounts of goat cheese, brie, mozzarella, parmesan, british, and other hard cheeses. Meats and other [...] 04/07/2018 Document Revised: 07/24/2018 Document Reviewed: 04/07/2018 [employer] Patient Education ? 2019 [employer]. Diet for Irritable Bowel Syndrome When you [...] your health care provider and diet and institutional nutrition consultant (dietitian) to find the eating plan that [...] care provider if you should take an alid-noc-ixcseok probiotic to help restore healthy bacteria in [...] symptoms worse: ? Fatty foods, such as sierra leonean fries. ? Foods that contain gluten, such [...] for Functional Gastrointestinal Disorders: www.iffgd.org ? National [place] of Diabetes and Digestive and Kidney Diseases: [...] Your health care provider or diet and institutional nutrition consultant (dietitian) may recommend that you eat more foods that contain fiber. This information is not intended to replace advice given to you by your health care provider. Make sure you discuss any questions you have with your health care provider. Document Released: 10/31/2004 Document Revised: 12/01/2019 Document Reviewed: 04/14/2018 [employer] Patient Education ? 2019 [employer] Normal [facility] RAD - Preliminary Cat Scan R eporton 08-23-2020 RAD - Preliminary Cat Scan Report [id number]#1.0 0CD:127 Normal [facility] U Drug Screenon 08-23-2020 Opiates Screen Ql (U) Positive Abnormal Negative Fis [facility] Comment on above: Result Comment: No c onfirmation requested by Physican\Results verified by repeat analysis\Unconfirmed by alternate method\Critical Result UD_OPIA:POS Called to BEL ESTRADA AT ER by GILSON PALMA And Read Back For Confirmation at: 08/23/2020 07:57:24 Negative Cutoff: <300 ng/mL Performed By: #### 2 403594 ####[facility] [address] [place] [address] Amphetamines Screen method >1000 ng/mL Ql (U) Negative Normal Negative [facility] Comment on above: Result Comment: Nega tive Cutoff: <1000 ng/mL Performed By: #### 2 952048 ####[facility] [address] [place] [address] Barbiturates Screen Ql (U) Negative Normal Negative [facility] Comment on above: Result Comment: Nega tive Cutoff: <200 ng/mL Performed By: #### 2 387297 ####[facility] [address] [place] [address] Benzodiazepines Ql (U) Negative Normal Negative [facility] Comment on above: Result Comment: Nega tive Cutoff: <200 ng/mL Performed By: #### 2 064215 ####[facility] [address] [place] [address] Cocaine Ql (U) Negative Normal Negative [facility] Comment on above: Result Comment: Nega tive Cutoff: <300 ng/mL Performed By: #### 2 302917 ####[address] [address] Phencyclidine Screen method >25 ng/mL Ql (U) Negative Normal Negative [facility] Comment on above: Result Comment: Nega tive Cutoff: <25 ng/mL These drug screen results are to be used for medical (i.e., treatment) purposes only. Unconfirmed drug screening results must not be used for non-medical purposes (e.g., employment testing, legal testing). Performed By: #### 2 740354 ####[address] [address] Tetrahydrocannabinol Screen method >50 ng/mL Ql (U) Negative Normal Negative [facility] Comment on above: Result Comment: Nega tive Cutoff: <50 ng/mL Performed By: #### 2 395308 ####[address] [address] UA With Cult Reflexon 2019 Bilirubin Ql (U) Negative Normal Negative [facility] Comment on above: Performed By: #### 1 8767898 ####[address] [address] Clarity (U) CLEAR Normal Clear [facility] Comment on above: Performed By: #### 1 8072795 ####[place] [address] [place] [address] Color (U) STRAW Abnormal Yellow [facility] Comment on above: Performed By: #### 1 1723507 ####[address] [address] Epithelial cells.squamous LM.HPF (Urine sed) [#/Area] 0-2 Normal 0-2 [facility] Comment on above: Performed By: #### 1 3772733 ####[facility] [address] [place] [address] Glucose Test strip (U) [Mass/Vol] 2+ Abnormal Negative [facility] Comment on above: Performed By: #### 1 5360788 ####[address] [address] Hemoglobin Ql (U) Negative Normal Negative [facility] Comment on above: Performed By: #### 1 7051339 ####[address] [address] Ketones (U) [Mass/Vol] 1+ Abnormal Negative [facility] Comment on above: Performed By: #### 1 3250096 ####[address] [address] [place].plasma/[place]. RBC (Bld) [Mass ratio] 0-3 Normal 0-3 [facility] Comment on above: Performed By: #### 1 6243281 ####[address] [address] Nitrite Ql (U) Negative Normal Negative [facility] Comment on above: Performed By: #### 1 8772251 ####[address] [address] pH (U) 7.5 [pH] 5.0-9.0 [facility] Comment on above: Performed By: #### 1 7849244 ####[address] [address] Protein (U) [Mass/Vol] Negative Normal Negative [facility] Comment on above: Performed By: #### 1 2764295 ####[address] [address] Specific gravity (U) [Rel density] 1.015 1.005-1.030 [facility] Comment on above: Performed By: #### 1 1761753 ####[facility] [address] [place] [address] UA Spec Desc Clean Catch Normal [facility] Comment on above: Performed By: #### 1 8405803 ####[facility] [address] [place] [address] Urobilinogen Qn (U) 0.2 {Ace'U}/dL Normal 0.0-1.0 [facility] Comment on above: Performed By: #### 1 7001366 ####[place] [address] [place] [address] WBC Auto Ql (U) Negative Normal Negative [facility] Comment on above: Performed By: #### 1 2539220 ####[place] [address] [place] [address] WBC LM.HPF (Urine sed) [#/Area] 0-5 Normal 0-5 [facility] Comment on above: Performed By: #### 1 9009145 ####[address] [address] Auto Diffon 08-22-2020 Basophils/100 WBC (Bld) 0.9 % Normal 0.0-2.0 [facility] Comment on above: Order Comment: Order Added by Discern Expert. Performed By: #### 1 3992304, 0953685, 2299151, 3125697, 210769163, 4200390, 837592446, 47619119, 4549135, 9598363, 1398554, 1624249, 43829215 ####[place] [address] [place] [address] Basophils/Leukocytes Auto (Bld) [Pure # fraction] 0.1 E9/L Normal 0.0-0.2 [facility] Comment on above: Order Comment: Order Added by Discern Expert. Performed By: #### 1 1617446, 9757652, 4493440, 8615686, 108034531, 2128036, 922879862, 59969291, 2499091, 2850554, 2774417, 1375387, 76562018 ####[facility] [address] [place] [address] Eosinophils/100 WBC (Bld) 0.6 % Normal 0.0-8.0 [facility] Comment on above: Order Comment: Order Added by Discern Expert. Performed By: #### 1 9058059, 7129895, 4860710, 1143290, 248038872, 7327273, 071173072, 06062394, 7699025, 6621100, 7140291, 1611764, 62731630 ####[facility] [address] [place] [address] Eosinophils/Leukocytes Auto (Bld) [Pure # fraction] 0.1 E9/L Normal 0.0-0.5 [facility] Comment on above: Order Comment: Order Added by Discern Expert. Performed By: #### 1 2423362, 2664238, 0325404, 6022769, 664432715, 2831946, 953275554, 92057082, 7506830, 0797437, 9206500, 2103590, 15641168 ####[place] [address] [place] [address] Lymphocytes/100 WBC (Bld) 7.0 % Low 14.0-50.0 [facility] Comment on above: Order Comment: Order Added by Discern Expert. Performed By: #### 1 3044750, 2481626, 2651083, 9749981, 864094168, 4751539, 817769797, 79556086, 2921924, 1047383, 0882836, 4293838, 76593725 ####[facility] [address] [place] [address] Lymphocytes/Leukocytes Auto (Bld) [Pure # fraction] 1.0 E9/L Normal 1.0-4.0 [facility] Comment on above: Order Comment: Order Added by Discern Expert. Performed By: #### 1 1073449, 0310477, 1675952, 2290372, 832333225, 8376134, 813292365, 88242628, 0955986, 6044775, 7186627, 3004150, 95586787 ####[facility] [address] [place] [address] Monocytes/100 WBC (Bld) 4.8 % Normal 4.0-14.0 [facility] Comment on above: Order Comment: Order Added by Discern Expert. Performed By: #### 1 2550620, 9671129, 5723688, 1009999, 181302245, 8770970, 746487148, 35468717, 6170544, 7300852, 8148678, 0952035, 98088596 ####[facility] [address] [place] [address] Monocytes/Leukocytes Auto (Bld) [Pure # fraction] 0.7 E9/L Normal 0.2-1.0 [facility] Comment on above: Order Comment: Order Added by Discern Expert. Performed By: #### 1 9765055, 3572024, 7671747, 6502347, 169975141, 3786840, 658481256, 63308830, 6732450, 2744192, 0264489, 8291673, 54389119 ####[facility] [address] [place] [address] Neutrophils/100 WBC (Bld) 86.7 % High 36.0-75.0 [facility] Comment on above: Order Comment: Order Added by Discern Expert. Performed By: #### 1 3374491, 7300401, 1943391, 1739390, 334982347, 1081720, 209288496, 63659482, 1639879, 1649761, 9814187, 2874006, 23608456 ####[facility] [address] [place] [address] Neutrophils/Leukocytes Auto (Bld) [Pure # fraction] 12.5 E9/L High 2.0-7.5 [facility] Comment on above: Order Comment: Order Added by Discern Expert. Performed By: #### 1 6798539, 3274320, 1322254, 6292215, 178122992, 9278099, 983402940, 61100064, 1316804, 3791008, 7520991, 4991497, 87687386 ####[facility] [address] [place] [address] BMPon 08-22-2020 Creatinine [Mass/Vol] 0.8 mg/dL Normal 0.5-1.3 [facility] Comment on above: Performed By: #### 1 8026818, 4210698, 0671498, 4394146, 164321399, 3323526, 826704087, 39185263, 0194828, 1835464, 3125747, 2549817, 01272104 ####[facility] [address] [place] [address] Urea nitrogen [Mass/Vol] 11 mg/dL Normal 5-21 [facility] Comment on above: Performed By: #### 1 5622932, 5274262, 6645078, 6636017, 237299419, 4966160, 125183486, 75987410, 3395535, 8884888, 4947212, 6752494, 60487680 ####[facility] [address] [place] [address] Urea nitrogen/Creatinine [Mass ratio] 14 No Units Normal 10-20 [facility] Comment on above: Performed By: #### 1 6228027, 6501607, 7671519, 1597652, 114745492, 6119368, 731709097, 86402937, 9391863, 8435381, 5541109, 2128498, 10234472 ####[facility] [address] [place] [address] Anion gap [Moles/Vol] 15 mmol/L Normal 6-16 [facility] Comment on above: Performed By: #### 1 8058949, 6253546, 0490085, 6388013, 788625036, 6980212, 379202854, 11496715, 1417852, 2629573, 4005970, 8927784, 94078956 ####[facility] [address] [place] [address] Calcium [Mass/Vol] 9.4 mg/dL Normal 8.9-11.1 [facility] Comment on above: Performed By: #### 1 5743530, 8384439, 7980671, 2162780, 347708620, 9067103, 132297173, 77144196, 7132548, 4531134, 2155061, 0268138, 87694345 ####[facility] [address] [place] [address] Chloride [Moles/Vol] 102 mmol/L Normal 101-111 [facility] Comment on above: Performed By: #### 1 1636112, 1099161, 8907915, 3170958, 722516998, 3040895, 630351245, 89461619, 6361934, 1202315, 0635518, 2321103, 37485891 ####[facility] [address] [place] [address] CO2 [Moles/Vol] 22 mmol/L Normal 21-31 [facility] Comment on above: Performed By: #### 1 8577882, 0986003, 3578244, 9678987, 448088735, 7024756, 516944129, 82592385, 6451407, 3418228, 5309624, 3662580, 94832624 ####[facility] [address] [place] [address] Glucose [Mass/Vol] 208 mg/dL High 55-199 [facility] Comment on above: Result Comment: If t his glucose result represents a fasting glucose, interpretation should refer to the following reference range: 55-99 mg/dL Performed By: #### 1 7252042, 7387766, 7798348, 7327094, 080056501, 6198574, 786217950, 23783085, 7210468, 7009401, 7123650, 3639416, 34352623 ####[facility] [address] [place] [address] Potassium [Moles/Vol] 3.4 mmol/L Low 3.5-5.3 [facility] Comment on above: Performed By: #### 1 7751577, 2415943, 0712277, 8234596, 172967424, 7800333, 647472425, 34868928, 3481955, 6613893, 0090391, 7299382, 56960233 ####[facility] [address] [place] [address] Sodium [Moles/Vol] 136 mmol/L Normal 135-145 [facility] Comment on above: Performed By: #### 1 9883785, 6706926, 4369710, 4234618, 469611562, 9721675, 160680074, 66339921, 1316030, 8135437, 2658762, 0828688, 55415987 ####[place] [address] [place] [address] CBC w/ Auto Diffon Erythrocyte distribution width (RBC) [Ratio] 14.1 % Normal 10.9-14.2 [facility] Comment on above: Performed By: #### 1 6865316, 9157205, 4267016, 4785942, 710838796, 6316321, 594664453, 20059823, 0722495, 3249672, 1718364, 7386791, 78261933 ####[place] [address] [place] [address] Hematocrit (Bld) [Volume fraction] 42.9 % Normal 34.0-46.0 [facility] Comment on above: Performed By: #### 1 0842183, 6096096, 7464737, 9867635, 045579307, 8824259, 056020333, 51629087, 2057055, 7248872, 3054242, 8787280, 76543274 ####[place] [address] [place] [address] Hemoglobin (Bld) [Mass/Vol] 13.9 g/dL Normal 12.0-16.0 [facility] Comment on above: Performed By: #### 1 1078026, 2378505, 8797268, 3442440, 389518901, 4257525, 939113711, 01291288, 5925493, 7120139, 2799415, 0844740, 58722427 ####[facility] [address] [place] [address] MCH (RBC) [Entitic mass] 28.2 pg Normal 27.0-34.0 [facility] Comment on above: Performed By: #### 1 8639686, 9667498, 0294508, 6434588, 863205396, 7025773, 483785119, 41816653, 5087116, 6783175, 6095293, 3532461, 88568400 ####[facility] [address] [place] [address] MCHC (RBC) [Mass/Vol] 32.4 g/dL Normal 31.4-36.0 [facility] Comment on above: Performed By: #### 1 1852198, 8632730, 6649339, 6505222, 822769794, 9694162, 247553591, 79008754, 0857555, 7056434, 7252359, 4020495, 78526528 ####[place] [address] [place] [address] MCV (RBC) [Entitic vol] 87.1 fL Normal 80.0-100.[address] [facility] Comment on above: Performed By: #### 1 6037605, 6180144, 1266452, 3936589, 104645136, 3657694, 141001707, 01346661, 5376559, 6388172, 6767055, 8826900, 82408323 ####[facility] [address] [place] [address] Platelet mean volume (Bld) [Entitic vol] 7.4 fL Normal 6.4-10.8 [facility] Comment on above: Performed By: #### 1 5969508, 5651001, 2218961, 8517606, 215302538, 8475368, 414412147, 29447488, 2948290, 2153646, 7170753, 3157260, 33692385 ####[facility] [address] [place] [address] Platelets (Bld) [#/Vol] 357.0 E9/L Normal 150.0-500.0 [facility] Comment on above: Performed By: #### 1 2566928, 9590741, 4850195, 3299876, 070663675, 5971977, 477409626, 37612745, 1949530, 9045369, 1247498, 0578947, 38337636 ####[facility] [address] [place] [address] RBC (Bld) [#/Vol] 4.9 E12/L Normal 4.3-5.9 [facility] Comment on above: Performed By: #### 1 7470515, 3870200, 4965972, 7547818, 017113500, 0485811, 712048956, 09378490, 6786850, 1229527, 6948014, 8846448, 26777600 ####[facility] [address] [place] [address] WBC corrected for nucl RBC Auto (Bld) [#/Vol] 14.4 E9/L High 4.0-11.0 [facility] Comment on above: Performed By: #### 1 9255631, 7909157, 5197924, 1910575, 422773518, 4968370, 711287224, 08744691, 4648839, 4761553, 2348117, 4897465, 61055926 ####[facility] [address] [place] [address] CRPon 08-22-2020 CRP [Mass/Vol] 0.6 mg/dL Normal <=1.9 [facility] Comment on above: Performed By: #### 1 5038464, 7416873, 1380429, 4063080, 733996298, 9148549, 362191870, 10689654, 7394440, 1492613, 5133253, 9939473, 96446028 ####[facility] [address] [place] [address] Consent for Treatmenton 07-26 Consent for Treatment [id number] [id number]#1. 00CD:127 Normal [facility] Hep Func Panelon 08-22-2020 Albumin [Mass/Vol] 1.7 g/dL Normal 1.1-2.2 [facility] Comment on above: Performed By: #### 1 5326791, 5421023, 8516012, 1157230, 088157036, 7853668, 497400996, 22791748, 9989500, 2070089, 9286804, 2751532, 75152965 ####[facility] [address] [place] [address] Albumin [Mass/Vol] 4.8 g/dL Normal 3.3-5.0 [facility] Comment on above: Performed By: #### 1 7398813, 0303992, 3931158, 8403647, 813265537, 7279239, 183917530, 18691491, 0315916, 7296104, 3272494, 0728244, 78840802 ####[facility] [address] [place] [address] ALP [Catalytic activity/Vol] 75 Int._Unit/L Normal 21-98 [facility] Comment on above: Performed By: #### 1 8542067, 8060913, 3652053, 7054023, 370401404, 0410173, 674608265, 76898633, 6801241, 4880158, 0410742, 4015547, 95874178 ####[facility] [address] [place] [address] ALT No additional P-5'-P [Catalytic activity/Vol] 14 Int._Unit/L Normal 6-46 [facility] Comment on above: Performed By: #### 1 4086919, 1818645, 0078538, 2694413, 081083140, 9891032, 013827229, 36835522, 3049683, 9312818, 9856622, 6132537, 46311525 ####[facility] [address] [place] [address] AST [Catalytic activity/Vol] 13 Int._Unit/L Normal 5-43 [facility] Comment on above: Performed By: #### 1 6303865, 6719071, 5675590, 4752778, 875914983, 3554433, 723741688, 69316485, 3970907, 5953352, 0139311, 4479715, [id number] ####[facility] [address] [place] [address] Bilirubin [Mass/Vol] 1.0 mg/dL Normal 0.0-1.1 [facility] Comment on above: Performed By: #### 1 [id number], 7613884, 9743333, 4032930, 258389735, 7855763, 852751213, 65528817, 6830797, 6042112, 8515270, 0894694, 96070522 ####[facility] [address] [place] [id number] Bilirubin.direct [Mass/Vol] 0.9 mg/dL Normal 0.1-0.9 [facility] Comment on above: Performed By: #### 1 0582957, 8807694, 5135441, 7717371, 338882664, 5195992, 445771205, 34138317, 6923720, 2694579, 5128102, 5129404, 89754300 ####[facility] [address] [place] [address] Bilirubin.direct [Mass/Vol] 0.1 mg/dL Normal 0.1-0.4 [facility] Comment on above: Performed By: #### 1 0595304, 7294162, 3363118, 2937307, 448242697, 7099926, 883157116, 71917183, 6699817, 3912630, 8615451, 8260999, 05413384 ####[facility] [address] [place] [address] Globulin (S) [Mass/Vol] 2.9 g/dL Normal 1.4-4.[address] [facility] Comment on above: Performed By: #### 1 0353962, 0173324, 9975980, 5571299, 894439099, 7838506, 753459194, 32795319, 8575804, 2876988, 7001789, 5624932, 94349450 ####[facility] [address] [place] [address] Protein [Mass/Vol] 7.7 g/dL Normal 6.0-7.8 [facility] Comment on above: Performed By: #### 1 2607382, 1596711, 2376432, 2993520, 461875174, 6194703, 122345644, 13261274, 7808789, 1131364, 5225630, 4722522, 86875393 ####[facility] [address] [place] [address] Lactic Acidon 08-22-2020 Lactate [Mass/Vol] 1.1 mmol/L Normal 0.5-2.2 [facility] Comment on above: Performed By: #### 1 9210268, 3844242, 6217312, 9797572, 633116194, 3265199, 108315622, 59679810, 2279873, 1847539, 3108085, 7537292, 46340607 ####[facility] [address] [place] [address] Lipase Levelon 08-22-2020 Lipase [Catalytic activity/Vol] 25 unit/L Normal 13-58 [facility] Comment on above: Performed By: #### 1 0866274, 3582937, 3709024, 0814062, 718608614, 1398693, 868896598, 62009549, 3235296, 2785725, 8699154, 8101343, 54336446 ####[place] [address] [place] [address] Pre-Arrival Noteon 0 Pre-Arrival Note Pre-Arrival Summary Name: , citizens Current Date: 08/22/2020 20:23:24 EST Gender: Female Date of : Age: 35 Pre-Arrival Type: EMS ETA: 08/22/2020 20:35:00 EST Primary Care Physician: Presenting Problem: epigastric pain Pre-Arrival User: Ankit HUBER, David Lange Referring Source: Location: PA Completion Date/Time: 08/22/2020 20:05:00 [facility] Emergency Department Pre-Hospital Report Form Vital Signs: 162/109, 84 pulse, 98%ra Pre-Hospital Report: epigatric pain Treatment in Route: Response to Treatment: Misc. Issues: Normal [facility] Sed Rate Automatedon 020 ESR (Bld) [Velocity] 6 mm/h Normal 0-34 [facility] Comment on above: Performed By: #### 1 9693229, 6046849, 8571256, 9548354, 489990402, 8125514, 621287504, 45450217, 9084321, 3124679, 9653367, 7172892, 86798117 #### [facility] [address] [place] [address] eGFRon 08-22-2020 GFR/1.73 sq M predicted among blacks MDRD (S/P/Bld) [Vol rate/Area] mL/min/{1.73_m2} Normal >=59 [facility] Comment on above: Order Comment: Order added by Discern Expert. Result Comment: eGFR is race adjusted. AA=. Performed By: #### 1 3598902, 9871114, 6174772, 0269547, 213958936, 8205276, 930567238, 87341306, 0304247, 9741507, 7719344, 0981764, 80011619 ####[facility] [address] [place] [address] GFR/1.73 sq M predicted among non-blacks MDRD (S/P/Bld) [Vol rate/Area] mL/min/{1.73_m2} Normal >=59 [facility] Comment on above: Order Comment: Order added by Discern Expert. Result Comment: Transportation Mechanic rico kidney disease could be indicated at eGFR's of less than 60 mL/min/1.73m2. Kidney failure is indicated at less than 15 mL/min/1.73m2. Performed By: #### 1 3193466, 7628988, 2532938, 3936895, 146332520, 3903815, 984147202, 19775527, 2886295, 3340785, 2635637, 9138766, 17387062 ####[facility] [address] [place] [address] Hemoglobin A1con 08-02-2020 HbA1c (Bld) [Mass fraction] 6.3 % Critically high 4.8-5.9 [facility] Comment on above: Performed By: #### A 1C #### [facility] [address] [place] [id number] US NON OB TRANSVAGINALon US NON OB [...] Ab Jennings MD 07/31/20 Final result Normal [facility] US PELVIS COMPLETEon 020 US PELVIS [...] Ab Jennings MD 07/31/20 Final result Normal [facility] Comprehensive Metabolic Pane samina 07-10-2020 Anion gap [Moles/Vol] 12 mmol/L Normal -15 [facility] Comment on above: Performed By: #### C MP #### [facility] [address] [place] [address] Albumin [Mass/Vol] 4.3 g/dL Normal 3.5-4.6 [facility] Comment on above: Performed By: #### C MP #### [facility] [address] [place] [address] ALP [Catalytic activity/Vol] 75 U/L Normal 40-130 [facility] Comment on above: Performed By: #### C MP #### [facility] [address] [place] [address] ALT [Catalytic activity/Vol] 7 U/L Normal 0-33 [facility] Comment on above: Performed By: #### C MP #### [facility] [address] [place] [address] AST [Catalytic activity/Vol] 7 U/L Normal 0-35 [facility] Comment on above: Performed By: #### C MP #### [facility] [address] [place] [address] Bilirubin [Mass/Vol] mg/dL Normal 0.2-0.7 [facility] Comment on above: Performed By: #### C MP #### [facility] [address] [place] [address] Calcium [Mass/Vol] 9.1 mg/dL Normal 8.5-9.9 [facility] Comment on above: Performed By: #### C MP #### [facility] [address] [place] [address] Chloride [Moles/Vol] 100 mmol/L Normal 95-107 [facility] Comment on above: Performed By: #### C MP #### [facility] [address] [place] [address] CO2 [Moles/Vol] 27 mmol/L Normal 20-31 [facility] Comment on above: Performed By: #### C MP #### [facility] [address] [place] [address] Creatinine [Mass/Vol] 0.70 mg/dL Normal 0.50-0.90 [facility] Comment on above: Performed By: #### C MP #### [facility] [address] [place] [address] GFR >60.0 Normal >60 [facility] Comment on above: Result Comment: >60 mL/min/1.73m2 EGFR, calc. for ages 18 and older using the MDRD formula (not corrected for weight), is valid for stable renal function. Performed By: #### C MP #### [facility] [address] [place] [address] GFR/1.73 sq M.predicted among blacks MDRD (S/P/Bld) [Vol rate/Area] mL/min/{1.73_m2} Normal >60 [facility] Comment on above: Result Comment: >60 mL/min/1.73m2 EGFR, calc. for ages 18 and older using the MDRD formula (not corrected for weight), is valid for stable renal function. Performed By: #### C MP #### [facility] [address] [place] [address] Globulin (S) [Mass/Vol] 2.3 g/dL Normal 2.3-3.5 [facility] Comment on above: Performed By: #### C MP #### [facility] [address] [place] [address] Glucose [Mass/Vol] 117 mg/dL Critically high 70-99 [facility] Comment on above: Performed By: #### C MP #### [facility] [address] [place] [address] Potassium [Moles/Vol] 3.6 mmol/L Normal 3.4-4.9 [facility] Comment on above: Performed By: #### C MP #### [facility] [address] [place] [address] Protein [Mass/Vol] 6.6 g/dL Normal 6.3-8.0 [facility] Comment on above: Performed By: #### C MP #### [facility] [address] [place] [address] Sodium [Moles/Vol] 139 mmol/L Normal 135-144 [facility] Comment on above: Performed By: #### C MP #### [facility] [address] [place] [address] Urea nitrogen [Mass/Vol] 8 mg/dL Normal 6-20 [facility] Comment on above: Performed By: #### C MP #### [facility] [address] [place] [address] TSH w/Reflexon 07-10-2020 TSH w/Reflex 1.110 uIU/mL Normal 0.440-3.86 [facility] Comment on above: Performed By: #### T SHR #### [facility] [address] [place] [address] CASE MANAGEMon 11-22-2019 CASE MANAGEM HNO ID: [id number] Author: Shama Herrera ([place] Service: ? 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 SW met with Pt at the bedside. [...] time, there is no indication to involve [facility]. Pt is protective and has [...] relationship. SW also provided contact information for [facility]. At this time, Jose returned back home and Pt will need to contact [facility] to set up hospital discharge transportation when medically cleared. AVRIL will remain available if additional needs arise. SIGNATURE: VERN Clark PATIENT NAME: Mary Paniagua DATE: November 22, 2019 TIME: 2:28 PM PAGER/CONTACT #: [phone] [facility] HNO ID: [id number] Author: Shama Huggins (Sw) Service: ? Author Type: Solar Installation Crew Supervisor Type: Care Mgt Initial Assessment Filed: 11/22/2019 11:17 AM Note Text: CARE MANAGEMENT: ASSESSMENT AND DISCHARGE PLAN SERVICE DATE: November 22, 2019 SERVICE TIME: 9:53 AM PRIMARY CARE PHYSICIAN: No primary care provider on file. Phone: None ADMISSION STATUS: Inpatient Needs Prior to Discharge: None MEDICAL: [facility] MEDICAID Patient/Gate Technician Stated Goals: To return home to life as it was Health Insurance: [facility] Health Issues Impacting Discharge Plan: None Last [...] Completely I feel financially burdened by my hac-jl-iujhpn expenses for my prescription medication:: 0 - [...] Cocaine Treatment: Rehab;Counseling FREEDOM OF CHOICE EXPLAINED: [place] of Choice Given: No Reason Not Given: No placements necessary POTENTIAL TRANSITION PLANS Home;Other: See Comment(Pt will monitor for s/s of PPD-will continue to follow up with current providers through [facility] ) Pt is a 34 year old [...] the following: She currently is living in [place] with her 8 year old son, Jovan, and her with whom she is currently x4 years. Pt has a 16 year old daughter who lives with her father in [place]. Pt's is not the FOB. FOB is Garth Alamo, he and Pt are not in a relationship, he does not plan to be involved with the baby. Pt plans to establish paternity and file for child support. Pt lost her job at [employer] in August d/t missed work [...] Tx program and [facility] [facility] in [facility]. Pt reported that she was addicted to Crack Cocaine about four years ago and went into treatment at [facility] by the [facility] from August 2016-January 2017. Pt has been sober since starting her Tx program. Pt received three tox screens during her on 05/10/19 (pain panel), 07/16/19 (pain panel), and 11/19/19 (utox), all of which were negative. Pt also had involvement with [facility] and her son was in foster care while Pt was in [place]. Pt stated her son was returned to [...] worked with her PCP, Mannie Martin of [facility], who prescribed Pt Lexapro with good effect. Pt reports she has been feeling much better since starting Lexapro. Pt noted she is also linked with a community mental health case operator through [facility] who is working on getting Pt linked with Psychiatry there as well. Pt currently engaged in phone meetings with her case operator 2x week d/t COVID-19 social distancing requirements. Pt feels well supported by her case operator and will continue with her post . Her next appointment/phone call with her case operator is scheduled for tomorrow at 10:30. 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 SW will coordinate transportation home for Pt. Pt reports no additional needs at this time, SW will remain available if needs arise. SIGNATURE: VERN Clark PATIENT NAME: Mary Paniagua DATE: November 22, 2019 TIME: 9:53 AM PAGER/CONTACT #: [phone] [facility] PLAN OF CAREon 11-22-2019 PLAN OF CARE HNO ID: [id number] Author: Korin Simeon (Film Composer) Service: ? Author Type: ? Type: Plan of Care Filed: 11/22/2019 12:55 PM Note Text: PHARMACY BEDSIDE DELIVERY SERVICE Patient Name: Mary Paniagua The marked outpatient medications were Filled at: [facility] and delivered to the patient's bedside to [...] or your Primary Care Provider. Korin Simeon (AdStack) PAGER: [phone] November 22, 2019 12:54 PM [facility] PLAN OF CARE HNO ID: [id number] Author: Korin Simeon (AdStack) Service: ? Author Type: ? Type: Plan of Care Filed: 11/22/2019 10:26 AM Note Text: Pharmacy Discharge Medication Service: This patient has elected to receive their discharge prescriptions through the [facility] Bedside Prescription Delivery program. The prescriptions are currently being processed. A follow-up note will be entered once the prescriptions have been filled and delivered to the patient. Please contact me with any questions or updates to the patient's discharge medications. Korin Simeon ([employer]Stack) DCT Contact Info: [id number] [facility] CARE HNO ID: [id number] Author: Korin Simeon (AdStack) Service: ? Author Type: ? Type: Plan of Care Filed: 11/22/2019 10:26 AM Note Text: ELEVATOR OPERATOR FREIGHT BEDSIDE DELIVERY SURVEY 1. Patient to use [facility] Bedside Delivery - YES Insurance Information as follows: 2. Insurance card on file - YES 3. Credit card for payment - N/A Patient has no prescriptions yet. Please page [phone] upon discharge. [facility] PROGRESSon 11-22-2019 PROGRESS HNO ID: [id number] Author: Mannie Esquivel MD Service: Gynecology Author [...] DATE: November 22, 2019 TIME: 6:03 AM [facility] ANES POSTPROC EVALon 020 ANES POSTPROC EVAL HNO ID: [id number] Author: Eligio Casillas Service: ? Author Type: [...] 97 % 11/21/2019 8:33 AM Jerzy Paniagua [[id number]] Please use the Print Group Residential Property Manager activity in [employer] to make print groups. Contact your technical [...] November 21, 2019 TIME: 8:42 AM CSN: [id number] Normal [facility] Blood Gases,Cord,Art (For [facility] and [facility])on 11-21-2019 Base Deficit 7.4 mmol/L Normal 4.4-8.3 [facility] Comment on above: Performed By: #### C STEVEN CMP #### [place] [id number] HCO3 (Bld) [Moles/Vol] 21 mmol/L Normal 17-27 [facility] Comment on above: Performed By: #### C BCEMIGDIOF CMP #### [place] [address] Oxygen (Bld) [Partial pressure] mm[Hg] High 5.5-30.5 [facility] Comment on above: Performed By: #### C BCEMIGDIOF CMP #### [place] [id number] pCO2 53 mm Hg Normal 32-66 [facility] Comment on above: Performed By: #### C BCDIF CMP #### [place] [phone] pH (Bld) 7.22 [pH] Normal 7.18-7.38 [facility] Comment on above: Performed By: #### C STEVEN, [facility] #### [facility] [address] [place] [address] LD NOTEon 11-21-2019 LD NOTE HNO ID: [id number] Author: Skyla Claudio Service: Obstetrics Author Type: Physician Type: LANDD Delivery Note Filed: 11/21/2019 4:27 AM Note Text: OBSTETRICS DELIVERY SUMMARY - VAGINAL DELIVERY Gestational Age at Delivery: 36w1d Service Date: 11/21/2019 Service Time: 4:24 AM Jerzy Paniagua [[id number]] Labor Events Rupture Date: 11/21/19 Rupture Time: [...] : 9 Five Minute : 9 Code [place] Called: Yes Type of Code [place] Team Needed: Planned Resuscitation Needed: No, see Peds Delivery Attendance Note/Progress Note 34 year old 36w1d induction of labor for preeclampsia with severe features, PUI for COVID-19 transferred from [facility]. Induction of labor with normal progression and [...] delivery. SIGNATURE: Skyla Claudio MD PATIENT NAME: Mray Paniagua DATE: November 21, 2019 TIME: 4:24 AM [facility] NURSING PROGon 11-21-2019 NURSING PROG HNO ID: [id number] Author: Rosario (Rn) CECILE Aiken Service: Obstetrics Author Type: Registered Nurse Type: Nursing Progress Note Filed: 11/21/2019 1:09 PM Note Text: Nursing Progress Note Patient Name: Mary Paniagua Patient Location: [id number]/6 __ Called to room by sitter; pt having 10/10 epigastric pain; anxiety elevated. Pt stated she was diagnosed with IBS, Colitis and peptic ulcer. Bentyl restarted. Resident called to see pt. Regarding pain control AND anxiety. In unit; will come see pt. This note was completed by: Rosario Aiken RN [facility] PROGRESSon 11-21-2019 PROGRESS HNO ID: [id number] Author: Bel Hernandes Service: ? Author Type: [...] DATE: November 21, 2019 TIME: 5:50 PM [facility] PROGRESS HNO ID: [id number] Author: Skyla Claudio Service: Obstetrics Author Type: [...] 24 hours post delivery. Skyla Claudio MD [facility] PROGRESS HNO ID: [id number] Author: Skyla Claudio Service: Obstetrics Author Type: Physician Type: Progress Notes Filed: 11/21/2019 4:43 AM Note Text: COVID-19 result negative. Will discontinue precautions. Routine PP care for preeclampsia. Skyla Claudio MD [facility] PROGRESS HNO ID: [id number] Author: Skyla Claudio Service: Obstetrics Author Type: [...] 2019 TIME: 1:20 AM PAGER/CONTACT #: Normal [facility] Urinalysis with Microscopico n 11-21-2019 Bacteria LM.HPF (Urine sed) [#/Area] Rare Critically abnormal Negative [facility] Comment on above: Performed By: #### U AWMIC #### [place] [address] Bilirubin, Urine Negative Normal Negative [facility] Comment on above: Performed By: #### U AWMIC #### [place] [address] Clarity (U) Hazy Critically abnormal Clear [facility] Comment on above: Performed By: #### U AWMIC #### [place] [address] Color (U) Yellow Normal Yellow [facility] Comment on above: Performed By: #### U AWMIC #### [place] [address] Comments SEE COMMENT Normal [facility] Comment on above: Result Comment: Micr oscopic Examination Performed Performed By: #### U AWMIC #### [place] [address] Epithelial cells LM.HPF (Urine sed) [#/Area] SEE COMMENT Critically abnormal Negative [facility] Comment on above: Result Comment: Rare Squamous Epithelial Cells Performed By: #### U AWMIC #### [place] [address] Glucose Ql (U) Negative Normal [facility] Comment on above: Performed By: #### U AWMIC #### [place] [address] Hemoglobin/Blood,Ur Large Critically abnormal Negative [facility] Comment on above: Performed By: #### U AWMIC #### [place] [id number] Ketones Ql (U) 80 Critically abnormal Negative [facility] Comment on above: Performed By: #### U AWMIC #### [place] [address] Leukest Negative Normal [facility] Comment on above: Performed By: #### U AWMIC #### [place] [phone] Mucus Ql (Urine sed) Present Normal [facility] Comment on above: Performed By: #### U AWMIC #### [place] [phone] Nitrite Ql (U) Negative Normal Negative [facility] Comment on above: Performed By: #### U AWMIC #### [phone] pH (Bld) 5.0 Normal 5.0-8.0 [facility] Comment on above: Performed By: #### U AWMIC #### [place] [phone] Protein (U) [Mass/Vol] Negative Normal Negative [facility] Comment on above: Performed By: #### U AWMIC #### [place] [phone] RBC (U) [#/Vol] Many Critically abnormal Negative [facility] Comment on above: Performed By: #### U AWMIC #### [phone] Specific [place], Ur 1.014 Normal 1.005-1.030 [facility] Comment on above: Performed By: #### U AWMIC #### [place] [phone] Urobilinogen Qn (U) <2.0 Normal <2.0 [facility] Comment on above: Performed By: #### U AWMIC #### [place] [phone] WBC (Bld) [#/Vol] Rare Critically abnormal Negative [facility] Comment on above: Performed By: #### U AWMIC #### [phone] Urine Cultureon 11-21-2019 Bacteria identified Cx Nom (U) Sp. Request/Comment: - Specimen received in preservative Culture Result - No growth (<100 CFU/ml) Normal [facility] Comment on above: Performed By: #### P RATIO #### [facility] [address] [place] [address] ANES PRE-OPon 11-20-2019 ANES PRE-OP HNO ID: [id number] Author: Jose West) MAXIMO Cline.GRASS CUTTER Service: ? Author Type: Nurse Mortgage Advisor Type: Anesthesia Preprocedure Evaluation Filed: 11/20/2019 8:09 PM Note Text: OB ANESTHESIA PRE-PROCEDURE ASSESSMENT PATIENT NAME: Mary Paniagua : 1985 Pt is a 34yo with EGA of 36w0d who presents in labor from [facility]. Had Previous Epidural today from [facility] and removed prior to transport. Pt stated no issues with Placement and stated that the epidural worked for her prior to removal. [facility] ANES TAXONOMIST: Previous OB anesthetic: Epidural No OB anesthesia [...] 2019 TIME: 8:02 PM : 1985 Normal [facility] CBC With Platelet and Differ entialon 11-20-2019 Basophils (Bld) [#/Vol] 0.1 10*3/uL Normal 0.0-0.2 [facility] Comment on above: Performed By: #### L DH #### [facility] [address] [facility] [address] Basophils/100 WBC (Bld) 0.7 % Normal [facility] Comment on above: Performed By: #### L DH #### [facility] [address] [facility] [address] Eosinophils (Bld) [#/Vol] 0.0 10*3/uL Normal 0.0-0.7 [facility] Comment on above: Performed By: #### L DH #### [facility] [address] [place] [address] Eosinophils/100 WBC (Bld) 0.0 % Normal [facility] Comment on above: Performed By: #### L DH #### [facility] [address] [place] [address] Erythrocyte distribution width (RBC) [Ratio] 13.3 % Normal 11.5-14.5 [facility] Comment on above: Performed By: #### L DH #### [facility] [address] [place] [address] Hematocrit (Bld) [Volume fraction] 33.7 % Low 37.0-47.0 [facility] Comment on above: Performed By: #### L DH #### [facility] [address] [place] [address] Hemoglobin (Bld) [Mass/Vol] 11.3 g/dL Low 12.0-16.0 [facility] Comment on above: Performed By: #### L DH #### [facility] [address] [place] [address] Lymphocytes (Bld) [#/Vol] 1.1 10*3/uL Normal 1.0-4.8 [facility] Comment on above: Performed By: #### L DH #### [facility] [address] [place] [address] Lymphocytes/100 WBC (Bld) 7.6 % Normal [facility] Comment on above: Performed By: #### L DH #### [facility] [address] [place] [address] MCH (RBC) [Entitic mass] 29.9 pg Normal 27.0-31.3 [facility] Comment on above: Performed By: #### L DH #### [facility] [address] [place] [address] MCHC (RBC) [Mass/Vol] 33.7 % Normal 33.0-37.0 [facility] Comment on above: Performed By: #### L DH #### [facility] [address] [place] [address] MCV (RBC) [Entitic vol] 88.9 fL Normal 82.0-100.0 [facility] Comment on above: Performed By: #### L DH #### [facility] [address] [place] [place] [address] Monocytes (Bld) [#/Vol] 0.4 10*3/uL Normal 0.2-0.8 [facility] Comment on above: Performed By: #### L DH #### [facility] [address] [place] [address] Monocytes/100 WBC (Bld) 2.6 % Normal [facility] Comment on above: Performed By: #### L DH #### [facility] [address] [place] [address] Neutrophils (Bld) [#/Vol] 12.5 10*3/uL Critically high 1.4-6.5 [facility] Comment on above: Performed By: #### L DH #### [facility] [address] [place] [address] Neutrophils/100 WBC (Bld) 89.1 % Normal [facility] Comment on above: Performed By: #### L DH #### [facility] [address] [place] [address] Platelets (Bld) [#/Vol] 344 10*3/uL Normal 130-400 [facility] Comment on above: Performed By: #### L DH #### [facility] [address] [place] [address] RBC (Bld) [#/Vol] 3.79 10*6/uL Low 4.20-5.40 [facility] Comment on above: Performed By: #### L DH #### [facility] [address] [place] [address] WBC (Bld) [#/Vol] 14.0 10*3/uL Critically high 4.8-10.8 [facility] Comment on above: Performed By: #### L DH #### [facility] [address] [facility] [id number] CBC and Differentialon 11-19 Abs Baso <0.03 Normal <0.11 [facility] Comment on above: Performed By: #### C BCDIF, CMP #### [place] [phone] Abs Cache 1.18 k/uL High <0.87 [facility] Comment on above: Performed By: #### C BCDIF, CMP #### [place] [phone] Abs Neut 18.44 k/uL High 1.45-7.50 [facility] Comment on above: Performed By: #### C BCDIF, CMP #### [place] [phone] Basophils/100 WBC (Bld) 0.0 % Normal [facility] Comment on above: Performed By: #### C BCDIF, CMP #### [place] [phone] DTYPE Auto Diff Normal [facility] Comment on above: Performed By: #### C BCDIF, CMP #### [place] [phone] Eosinophils (Bld) [#/Vol] 10*3/uL Normal <0.46 [facility] Comment on above: Performed By: #### C BCDIF, CMP #### [place] [phone] Eosinophils/100 WBC (Bld) 0.0 % Normal [facility] Comment on above: Performed By: #### C BCDIF, CMP #### [phone] Erythrocyte distribution width (RBC) [Ratio] 13.7 % Normal 11.5-15.0 [facility] Comment on above: Performed By: #### C BCDIF, CMP #### [place] [phone] Hematocrit (Bld) [Volume fraction] 37.4 % Normal 36.0-46.0 [facility] Comment on above: Performed By: #### C BCDIF, CMP #### [place] [phone] Hemoglobin (Bld) [Mass/Vol] 12.5 g/dL Normal 11.5-15.5 [facility] Comment on above: Performed By: #### C BCDIF, CMP #### [address] Lymphocytes (Bld) [#/Vol] 1.37 10*3/uL Normal 1.00-4.00 [facility] Comment on above: Performed By: #### C BCDIF, CMP #### [address] Lymphocytes/100 WBC (Bld) 6.5 % Normal [facility] Comment on above: Performed By: #### C BCDIF, CMP #### [place] [phone] MCH (RBC) [Entitic mass] 30.0 pG Normal 26.0-34.0 [facility] Comment on above: Performed By: #### C BCDIF, CMP #### [place] [phone] MCHC (RBC) [Mass/Vol] 33.4 g/dL Normal 30.5-36.0 [facility] Comment on above: Performed By: #### C BCDIF, CMP #### [place] [phone] MCV (RBC) [Entitic vol] 89.9 fL Normal 80.0-100.0 [facility] Comment on above: Performed By: #### C BCDIF, CMP #### [place] [phone] Monocytes/100 WBC (Bld) 5.6 % Normal [facility] Comment on above: Performed By: #### C BCDIF, CMP #### [address] [address] Neutrophils/100 WBC (Bld) 87.9 % Normal [facility] Comment on above: Performed By: #### C BCDIF, CMP #### [place] [address] Platelet mean volume (Bld) [Entitic vol] 10.2 fL Normal 9.0-12.7 [facility] Comment on above: Performed By: #### C BCDIF, CMP #### [place] [address] Platelets (Bld) [#/Vol] 437 10*3/uL High 150-400 [facility] Comment on above: Performed By: #### C BCDIF, CMP #### [place] [address] RBC (Bld) [#/Vol] 4.16 10*6/uL Normal 3.90-5.20 [facility] Comment on above: Performed By: #### C BCDIF, CMP #### [place] [address] WBC (Bld) [#/Vol] 21.00 10*3/uL High 3.70-11.00 [facility] Comment on above: Performed By: #### C BCDIF, CMP #### [place] [address] Comp Metabolic Panelon 11-19 Albumin [Mass/Vol] 3.6 g/dL Normal 3.5-5.0 [facility] Comment on above: Performed By: #### C BCDIF, CMP #### [place] [id number] ALP [Catalytic activity/Vol] 134 U/L High 34-123 [facility] Comment on above: Performed By: #### C BCDIF, CMP #### [place] [phone] ALT [Catalytic activity/Vol] 20 U/L Normal 0-45 [facility] Comment on above: Performed By: #### C BCDIF, CMP #### [place] [phone] Anion gap [Moles/Vol] 22 mmol/L High 9-18 [facility] Comment on above: Performed By: #### C BCDIF, CMP #### [place] [phone] AST [Catalytic activity/Vol] 19 U/L Normal 7-40 [facility] Comment on above: Performed By: #### C BCDIF, CMP #### [place] [phone] Bilirubin [Mass/Vol] 0.4 mg/dL Normal 0.2-1.3 [facility] Comment on above: Performed By: #### C BCDIF, CMP #### [place] [phone] Calcium [Mass/Vol] 8.5 mg/dL Normal 8.5-10.5 [facility] Comment on above: Performed By: #### C BCDIF, CMP #### [place] [phone] Chloride [Moles/Vol] 98 mmol/L Normal 98-110 [facility] Comment on above: Performed By: #### C BCDIF, CMP #### [place] [phone] CO2 [Moles/Vol] 12 mmol/L Low 23-32 [facility] Comment on above: Performed By: #### C BCDIF, CMP #### [place] [phone] Creatinine [Mass/Vol] 0.51 mg/dL Low 0.70-1.40 [facility] Comment on above: Performed By: #### C BCDIF, CMP #### [place] [phone] eGFR- Amer. >60 Normal >60 [facility] Comment on above: Performed By: #### C BCDIF, CMP #### [place] [phone] GFR/1.73 sq M predicted among non-blacks MDRD (S/P/Bld) [Vol rate/Area] mL/min/{1.73_m2} Normal >60 [facility] Comment on above: Performed By: #### C BCDIF, CMP #### [place] [phone] Glucose [Mass/Vol] 145 mg/dL High 65-100 [facility] Comment on above: Performed By: #### C BCDIF, CMP #### [place] [phone] Potassium [Moles/Vol] 3.2 mmol/L Low 3.5-5.0 [facility] Comment on above: Performed By: #### C BCDIF, CMP #### [place] [phone] Protein [Mass/Vol] 6.3 g/dL Normal 6.0-8.4 [facility] Comment on above: Performed By: #### C BCDIF, CMP #### [place] [phone] Sodium [Moles/Vol] 132 mmol/L Normal 132-148 [facility] Comment on above: Performed By: #### C BCDIF, CMP #### [place] [phone] Urea nitrogen [Mass/Vol] 4 mg/dL Low 8-25 [facility] Comment on above: Performed By: #### C BCDIF, CMP #### [place] [phone] Comprehensive Metabolic Pane samina 11-20-2019 Albumin [Mass/Vol] 2.9 g/dL Low 3.5-4.6 [facility] Comment on above: Performed By: #### L IPAS #### [facility] [address] [place] [address] ALP [Catalytic activity/Vol] 112 U/L Normal 40-130 [facility] Comment on above: Performed By: #### L IPAS #### [facility] [address] [place] [address] ALT [Catalytic activity/Vol] 13 U/L Normal 0-33 [facility] Comment on above: Performed By: #### L IPAS #### [facility] [address] [place] [address] Anion gap [Moles/Vol] 15 mmol/L Normal 9-15 [facility] Comment on above: Performed By: #### L IPAS #### [facility] [address] [place] [address] AST [Catalytic activity/Vol] 13 U/L Normal 0-35 [facility] Comment on above: Performed By: #### L IPAS #### [facility] [address] [place] [address] Bilirubin [Mass/Vol] 0.3 mg/dL Normal 0.2-0.7 [facility] Comment on above: Performed By: #### L IPAS #### [facility] [address] [place] [address] Calcium [Mass/Vol] 7.8 mg/dL Low 8.5-9.9 [facility] Comment on above: Performed By: #### L IPAS #### [facility] [address] [place] [address] Chloride [Moles/Vol] 102 mmol/L Normal 95-107 [facility] Comment on above: Performed By: #### L IPAS #### [facility] [address] [place] [address] CO2 [Moles/Vol] 16 mmol/L Low 20-31 [facility] Comment on above: Performed By: #### L IPAS #### [facility] [address] [place] [address] Creatinine [Mass/Vol] 0.41 mg/dL Low 0.50-0.90 [facility] Comment on above: Performed By: #### L IPAS #### [facility] [address] [place] [address] GFR/1.73 sq M predicted among blacks MDRD (S/P/Bld) [Vol rate/Area] mL/min/{1.73_m2} Normal >60 [facility] Comment on above: Result Comment: >60 mL/min/1.73m2 EGFR, calc. for ages 18 and older using the MDRD formula (not corrected for weight), is valid for stable renal function. Performed By: #### L IPAS #### [facility] [address] [place] [address] GFR/1.73 sq M.predicted MDRD (S/P/Bld) [Vol rate/Area] mL/min/{1.73_m2} Normal >60 [facility] Comment on above: Result Comment: >60 mL/min/1.73m2 EGFR, calc. for ages 18 and older using the MDRD formula (not corrected for weight), is valid for stable renal function. Performed By: #### L IPAS #### [facility] [address] [place] [address] Globulin (S) [Mass/Vol] 2.8 g/dL Normal 2.3-3.5 [facility] Comment on above: Performed By: #### L IPAS #### [facility] [address] [place] [address] Glucose [Mass/Vol] 123 mg/dL Critically high 70-99 [facility] Comment on above: Performed By: #### L IPAS #### [facility] [address] [place] [address] Potassium [Moles/Vol] 3.4 mmol/L Normal 3.4-4.9 [facility] Comment on above: Performed By: #### L IPAS #### [facility] [address] [place] [address] Protein [Mass/Vol] 5.7 g/dL Low 6.3-8.0 [facility] Comment on above: Performed By: #### L IPAS #### [facility] [address] [place] [address] Sodium [Moles/Vol] 133 mmol/L Low 135-144 [facility] Comment on above: Performed By: #### L IPAS #### [facility] [address] [place] [address] Urea nitrogen [Mass/Vol] 5 mg/dL Low 6-20 [facility] Comment on above: Performed By: #### L IPAS #### [facility] [address] [place] [address] Coronavirus 2019on 0 COVID 19 Result [employer] Negative Normal Negative for COVID19 (SARS CoV2) by PCR. [facility] Comment on above: Result Comment: This test was developed and its performance characteristics determined by [facility] [place]. This test has been authorized by FDA [...] Performed By: #### C BCDIF, CMP #### [place] [address] COVID 19 Source [employer] Nasopharyngeal Swab Normal [facility] Comment on above: Performed By: #### C BCDIF, CMP #### [place] [address] HISTORY PHYSICALon 0 HISTORY PHYSICAL HNO ID: [id number] Author: Skyla Claudio Service: Obstetrics Author Type: [...] Patient is here sent as transfer from [facility] where she presented with abdominal pain, N/V/D. RUQ ultrasound was unremarkable. She was suspected to be laboring and was given epidural with improvement of pain. She was given BMZ at [facility] on 11/18 PM. She had watery diarrhea which was sent for C.diff. She has a history of GI complaints and had workup including EGD and colonoscopy in 2018. She was admitted for similar GI complaints in August 2019 at [facility]. She also was noted to have elevated [...] counseling. She received Ativan x 2 at [facility]. GBS was collected at [facility]. She endorses suicidal ideations. She has asthma, [...] Assessment/Plan 34 year old EGA:[id number]. Transfer from [facility]. Preeclampsia with severe features based on BP. No STRICKLAND, no hyperreflexia. Induction of labor. Will hold magnesium due to concern for possible respiratory compromise. Consider in active labor or PP. Respiratory complaints with GI complaints, ill appearing. Influenza negative. COVID-19 testing in process. Contact and droplet precautions plus eyewear. GDMA1. Received one dose BMZ at [facility]-- will likely reflect in elevated BS during [...] Anti-emetics, IVF hydration, analgesia. C.diff pending from [facility]. Will evaluate further after delivery if continued symptoms. IOL-- Dating c/w 9 week ultrasound. FHR is category 1 (no variable appreciated). No recent US for growth, clinically 7# but limited d/t patient body habitus. GBS unknown-- specimen collected at [facility]. PCN for GBS prophylaxis. Patient desires TL [...] 20, 2019 TIME: 4:44 PM PAGER/CONTACT #: [facility] POCT Glucoseon 11-20-2019 Glucose [Mass/Vol] 128 mg/dL Critically high 60-115 [facility] Comment on above: Performed By: #### L DH #### [facility] [address] [place] [address] POC Performed on ACCU-CHEK [facility] Comment on above: Performed By: #### L DH #### [facility] [address] [place] [phone] Glucose [Mass/Vol] 122 mg/dL Critically high 60-115 [facility] Comment on above: Performed By: #### P GLU #### [facility] [address] [place] [address] POC Performed on ACCU-CHEK [facility] Comment on above: Performed By: #### P GLU #### [facility] [address] [place] [address] Glucose [Mass/Vol] 126 mg/dL Critically high 60-115 [facility] Comment on above: Performed By: #### F IBR #### [facility] [address] [facility] [address] POC Performed on ACCU-CHEK Normal [facility] Comment on above: Performed By: #### F IBR #### [facility] [address] [facility] [address] Protein/Creatinine Ratioon 0 11-20-2019 Creatinine,Urine,Ran 53.2 mg/dL Normal 20-300 [facility] Comment on above: Performed By: #### P RATIO #### [phone] Protein (U) [Mass/Vol] 47 mg/dL High 0-20 [facility] Comment on above: Performed By: #### P RATIO #### [place] [phone] Protein/Creatinine Ratio 0.9 High <0.2 [facility] Comment on above: Performed By: #### P RATIO #### [place] [phone] Rapid PCR FLU/RSVon 11-20-19 20 Influenza A PCR Negative [facility] Comment on above: Performed By: #### F LRSV #### [address] Influenza B PCR Negative [facility] Comment on above: Performed By: #### F LRSV #### [place] [phone] RSV PCR Negative [facility] Comment on above: Performed By: #### F LRSV #### [address] Specimen source Nom (Unsp spec) Nasopharyngeal Swab [facility] Comment on above: Performed By: #### F LRSV #### [phone] Type and Scr,Prenatlon 11-19 ABO/RH(D) Positive [facility] Comment on above: Performed By: #### C BCDIF, CMP #### [facility] [address] [place] [address] Urinalysis, reflex to micros copicon 11-20-2019 Bilirubin Ql (U) Negative Normal Negative [facility] Comment on above: Performed By: #### L IPAS #### [facility] [address] [place] [address] Clarity (U) Clear Normal Clear [facility] Comment on above: Performed By: #### L IPAS #### [facility] [address] [place] [address] Color (U) Yellow Normal Straw/Bureau [facility] Comment on above: Performed By: #### L IPAS #### [facility] [address] [place] [address] Glucose Ql (U) Negative Normal Negative [facility] Comment on above: Performed By: #### L IPAS #### [facility] [address] [place] [address] Hemoglobin Ql (U) Negative Normal Negative [facility] Comment on above: Performed By: #### L IPAS #### [facility] [address] [place] [address] Ketones Ql (U) >=80 Abnormal Negative [facility] Comment on above: Performed By: #### L IPAS #### [facility] [address] [place] [address] Leukocyte esterase Test strip Ql (U) Negative Normal Negative [facility] Comment on above: Performed By: #### L IPAS #### [facility] [address] [place] [address] Nitrite Ql (U) Negative Normal Negative [facility] Comment on above: Performed By: #### L IPAS #### [facility] [address] [place] [address] pH (U) 6.0 [pH] Normal 5.0-9.0 [facility] Comment on above: Performed By: #### L IPAS #### [facility] [address] [place] [address] Protein Ql (U) TRACE Abnormal Negative [facility] Comment on above: Performed By: #### L IPAS #### [facility] [address] [place] [address] Specific gravity (U) [Rel density] 1.009 Normal 1.005-1.03 [facility] Comment on above: Performed By: #### L IPAS #### [facility] [address] [place] [address] Urobilinogen Qn (U) 0.2 {Ace'U}/dL Normal < 2.0 [facility] Comment on above: Performed By: #### L IPAS #### [facility] [address] [place] [address] Amylaseon 11-19-2019 Amylase [Catalytic activity/Vol] 57 U/L Normal 22-93 [facility] Comment on above: Performed By: #### F IBR #### [facility] [address] [place] [address] CBC With Platelet and Differ entialon 11-19-2019 Slide Review see below Normal [facility] Comment on above: Result Comment: Slid e review agrees with reported results Performed By: #### C BCWD #### [facility] [address] [place] [address] Basophils (Bld) [#/Vol] 0.2 10*3/uL Normal 0.0-0.2 [facility] Comment on above: Performed By: #### C BCWD #### [facility] [address] [place] [address] Basophils/100 WBC (Bld) 1.0 % Normal [facility] Comment on above: Performed By: #### C BCWD #### [facility] [address] [place] [address] Eosinophils (Bld) [#/Vol] 0.0 10*3/uL Normal 0.0-0.7 [facility] Comment on above: Performed By: #### C BCWD #### [facility] [address] [place] [address] Eosinophils/100 WBC (Bld) 0.1 % Normal [facility] Comment on above: Performed By: #### C BCWD #### [facility] [address] [place] [address] Erythrocyte distribution width (RBC) [Ratio] 13.2 % Normal 11.5-14.5 [facility] Comment on above: Performed By: #### C BCWD #### [facility] [address] [place] [address] Hematocrit (Bld) [Volume fraction] 37.6 % Normal 37.0-47.0 [facility] Comment on above: Performed By: #### C BCWD #### [facility] [address] [place] [address] Hemoglobin (Bld) [Mass/Vol] 13.0 g/dL Normal 12.0-16.0 [facility] Comment on above: Performed By: #### C BCWD #### [facility] [address] [place] [address] Lymphocytes (Bld) [#/Vol] 1.1 10*3/uL Normal 1.0-4.8 [facility] Comment on above: Performed By: #### C BCWD #### [facility] [address] [place] [address] Lymphocytes/100 WBC (Bld) 6.3 % Normal [facility] Comment on above: Performed By: #### C BCWD #### [facility] [address] [place] [address] MCH (RBC) [Entitic mass] 30.8 pg Normal 27.0-31.3 [facility] Comment on above: Performed By: #### C BCWD #### [facility] [address] [place] [address] MCHC (RBC) [Mass/Vol] 34.5 % Normal 33.0-37.0 [facility] Comment on above: Performed By: #### C BCWD #### [facility] [address] [place] [address] MCV (RBC) [Entitic vol] 89.1 fL Normal 82.0-100.0 [facility] Comment on above: Performed By: #### C BCWD #### [facility] [address] [place] [address] Monocytes (Bld) [#/Vol] 0.5 10*3/uL Normal 0.2-0.8 [facility] Comment on above: Performed By: #### C BCWD #### [facility] [address] [place] [address] Monocytes/100 WBC (Bld) 2.7 % Normal [facility] Comment on above: Performed By: #### C BCWD #### [facility] [address] [place] [address] Neutrophils (Bld) [#/Vol] 15.5 10*3/uL Critically high 1.4-6.5 [facility] Comment on above: Performed By: #### C BCWD #### [facility] [address] [place] [address] Neutrophils/100 WBC (Bld) 89.9 % Normal [facility] Comment on above: Performed By: #### C BCWD #### [facility] [address] [place] [address] Platelets (Bld) [#/Vol] 272 10*3/uL Normal 130-400 [facility] Comment on above: Performed By: #### C BCWD #### [facility] [address] [place] [address] RBC (Bld) [#/Vol] 4.22 10*6/uL Normal 4.20-5.40 [facility] Comment on above: Performed By: #### C BCWD #### [facility] [address] [place] [address] WBC (Bld) [#/Vol] 17.2 10*3/uL Critically high 4.8-10.8 [facility] Comment on above: Performed By: #### C BCWD #### [facility] [address] [place] [address] Comprehensive Metabolic Pane l reflex Mgon 11-19-2019 Albumin [Mass/Vol] 3.7 g/dL Normal 3.5-4.6 [facility] Comment on above: Performed By: #### L IPAS #### [facility] [address] [place] [address] ALP [Catalytic activity/Vol] 133 U/L Critically high 40-130 [facility] Comment on above: Result Comment: Spec imen hemolysis has exceeded the interference as defined by Mik. Value may be falsely decreased. Suggest recollection if clinically indicated. Performed By: #### L IPAS #### [facility] [address] [place] [address] ALT [Catalytic activity/Vol] 18 U/L Normal 0-33 [facility] Comment on above: Result Comment: Spec imen hemolysis has exceeded the interference as defined by Mik. Result may be affected. Suggest recollection if clinically indicated. Performed By: #### L IPAS #### [facility] [address] [place] [address] Anion gap [Moles/Vol] 19 mmol/L Critically high 9-15 [facility] Comment on above: Performed By: #### L IPAS #### [facility] [address] [place] [address] AST [Catalytic activity/Vol] 31 U/L Normal 0-35 [facility] Comment on above: Result Comment: Spec imen hemolysis has exceeded the interference as defined by Mik. Value may be falsely increased. Suggest recollection if clinically indicated. Performed By: #### L IPAS #### [facility] [address] [place] [address] Bilirubin [Mass/Vol] 0.3 mg/dL Normal 0.2-0.7 [facility] Comment on above: Performed By: #### L IPAS #### [facility] [address] [place] [address] Calcium [Mass/Vol] 9.0 mg/dL Normal 8.5-9.9 [facility] Comment on above: Performed By: #### L IPAS #### [facility] [address] [place] [address] Chloride [Moles/Vol] 96 mmol/L Normal 95-107 [facility] Comment on above: Performed By: #### L IPAS #### [facility] [address] [place] [address] CO2 [Moles/Vol] 18 mmol/L Low 20-31 [facility] Comment on above: Performed By: #### L IPAS #### [facility] [address] [place] [address] Creatinine [Mass/Vol] 0.39 mg/dL Low 0.50-0.90 [facility] Comment on above: Performed By: #### L IPAS #### [facility] [address] [place] [address] GFR/1.73 sq M predicted among blacks MDRD (S/P/Bld) [Vol rate/Area] mL/min/{1.73_m2} Normal >60 [facility] Comment on above: Result Comment: >60 mL/min/1.73m2 EGFR, calc. for ages 18 and older using the MDRD formula (not corrected for weight), is valid for stable renal function. Performed By: #### L IPAS #### [facility] [address] [place] [address] GFR/1.73 sq M.predicted MDRD (S/P/Bld) [Vol rate/Area] mL/min/{1.73_m2} Normal >60 [facility] Comment on above: Result Comment: >60 mL/min/1.73m2 EGFR, calc. for ages 18 and older using the MDRD formula (not corrected for weight), is valid for stable renal function. Performed By: #### L IPAS #### [facility] [address] [place] [address] Globulin (S) [Mass/Vol] 3.2 g/dL Normal 2.3-3.5 [facility] Comment on above: Performed By: #### L IPAS #### [facility] [address] [place] [address] Glucose [Mass/Vol] 196 mg/dL Critically high 70-99 [facility] Comment on above: Performed By: #### L IPAS #### [facility] [address] [place] [address] Potassium reflex Mg 4.1 mEq/L Normal 3.4-4.9 [facility] Comment on above: Performed By: #### L IPAS #### [facility] [address] [place] [address] Protein [Mass/Vol] 6.9 g/dL Normal 6.3-8.0 [facility] Comment on above: Performed By: #### L IPAS #### [facility] [address] [place] [address] Sodium [Moles/Vol] 133 mmol/L Low 135-144 [facility] Comment on above: Performed By: #### L IPAS #### [facility] [address] [place] [address] Urea nitrogen [Mass/Vol] 6 mg/dL Normal 6-20 [facility] Comment on above: Performed By: #### L IPAS #### [facility] [address] [place] [address] D-Dimer Quanton 11-19-2019 D-Dimer Quant 0.84 mg/L FEU Critically high 0.00-0.50 [facility] Comment on above: Order Comment: CALL Maguire [facility] tel. [phone],dimer results called to and read back by Christine neal, 11/19/2019 19:59,by MAGGIE Performed By: #### F IBR #### [facility] [address] [place] [address] Fibrinogenon 11-19-2019 Fibrinogen 615.0 mg/dL Critically high 235.0-507. [facility] Comment on above: Performed By: #### F IBR #### [facility] [address] [place] [address] Lactate Dehydrogenaseon 10-24 LDH [Catalytic activity/Vol] 429 U/L Critically high 135-214 [facility] Comment on above: Result Comment: Spec imen hemolysis has exceeded the interference as defined by Mik. Value may be falsely increased. Suggest recollection if clinically indicated. Performed By: #### L DH #### [facility] [address] [place] [address] Lipaseon 11-19-2019 Lipase [Catalytic activity/Vol] 35 U/L Normal 12-95 [facility] Comment on above: Performed By: #### L IPAS #### [facility] [address] [place] [address] Prothrombin Timeon 0 INR Coag (PPP) [Relative time] 0.9 {INR} Normal [facility] Comment on above: Performed By: #### F IBR #### [facility] [address] [place] [address] PT Coag (PPP) [Time] 12.1 s Low 12.3-14.9 [facility] Comment on above: Performed By: #### F IBR #### [facility] [address] [place] [address] Type and Screen Capture 3 sc rn cellon 11-19-2019 Type and Screen Capture 3 scrn cell PATIENT: JAY Malone LOC: [facility],[id number],[id number] BILL# : [id number] : 1985 SEX: F ORDERED BY: KRISTIAN BIRD ORDERED : 11/19/2019 18:24 COLLECTED: 11/19/2019 18:30 ORDER : [id number] RECEIVED : 11/19/2019 18:42 TEST NAME RESULT UNITS RANGES ABN FL ST ABORH Capture A POS F Antibody 3 Cell Scrn Captu NEG F @11/19/19 20:52 by MAGGIE: @11/20/19 09:22 by GILA: Repeated absc with a different lot of RS-3 strips- confirmed absc negative. LMB Normal [facility] Comment on above: Performed By: #### L IPAS #### [facility] [address] [place] [address] UR Drugs of Abuse Panelon Drug Screen Comment see below Normal [facility] Comment on above: Result Comment: This method is a screening test to detect only these drug classes as part of a medical workup. Confirmatory testing by another method should be ordered if clinically indicated. Performed By: #### F IBR #### [facility] [address] [place] [address] UR Amphetamines Screen Negative Normal Negative < [facility] Comment on above: Performed By: #### F IBR #### [facility] [address] [place] [address] UR Barbiturates Screen Negative Normal Negative < [facility] Comment on above: Performed By: #### F IBR #### [facility] [address] [place] [address] UR Benzo Screen Negative Normal Negative < [facility] Comment on above: Performed By: #### F IBR #### [facility] [address] [place] [address] UR Cannabinoids Screen Negative Normal Negative < [facility] Comment on above: Performed By: #### F IBR #### [facility] [address] [place] [address] UR Cocaine Screen Negative Normal Negative < [facility] Comment on above: Performed By: #### F IBR #### [facility] [address] [place] [address] UR Methadone Screen Negative Normal Negative < [facility] Comment on above: Result Comment: Effe ctive: 05/03/19 New Test for Qualitative Drug Screen. Performed By: #### F IBR #### [facility] [address] [place] [address] UR Opiates Screen Negative Normal Negative < [facility] Comment on above: Performed By: #### F IBR #### [facility] [address] [place] [address] UR Oxycodone Screen Negative Normal Negative < [facility] Comment on above: Result Comment: Effe ctive: 05/03/19 New Test for Qualitative Drug Screen. Performed By: #### F IBR #### [facility] [address] [place] [address] UR PCP Screen Negative Normal Negative < [facility] Comment on above: Performed By: #### F IBR #### [facility] [address] [place] [address] UR Propoxyphene Screen Negative Normal Negative < [facility] Comment on above: Result Comment: Effe ctive: 05/03/19 New Test for Qualitative Drug Screen. Performed By: #### F IBR #### [facility] [address] [place] [address] US ABDOMEN LIMITEDon 020 US ABDOMEN LIMITED [...] Luis Oviedo MD 11/19/19 Final result Normal [facility] US BIOPHYS PROFILE W N ON [...] Luis Oviedo MD 11/19/19 Final result Normal [facility] Urinalysis, reflex to micros copicon 11-19-2019 Bilirubin Ql (U) Negative Normal Negative [facility] Comment on above: Performed By: #### F IBR #### [facility] [address] [place] [address] Clarity (U) Clear Normal Clear [facility] Comment on above: Performed By: #### F IBR #### [facility] [address] [facility] [address] Color (U) Yellow Normal Straw/Bureau [facility] Comment on above: Performed By: #### F IBR #### [facility] [address] [place] [address] Glucose Ql (U) >=1000 Abnormal Negative [facility] Comment on above: Performed By: #### F IBR #### [facility] [address] [place] [address] Hemoglobin Ql (U) TRACE Abnormal Negative [facility] Comment on above: Performed By: #### F IBR #### [facility] [address] [place] [address] Ketones Ql (U) >=80 Abnormal Negative [facility] Comment on above: Performed By: #### F IBR #### [facility] [address] [place] [address] Leukocyte esterase Test strip Ql (U) Negative Normal Negative [facility] Comment on above: Performed By: #### F IBR #### [facility] [address] [place] [address] Nitrite Ql (U) Negative Normal Negative [facility] Comment on above: Performed By: #### F IBR #### [facility] [address] [place] [address] pH (U) 5.0 [pH] Normal 5.0-9.0 [facility] Comment on above: Performed By: #### F IBR #### [facility] [address] [place] [address] Protein Ql (U) 30 mg/dL Abnormal Negative [facility] Comment on above: Performed By: #### F IBR #### [facility] [address] [place] [address] Specific gravity (U) [Rel density] 1.023 Normal 1.005-1.03 [facility] Comment on above: Performed By: #### F IBR #### [facility] [address] [place] [address] Urobilinogen Qn (U) 0.2 {Ace'U}/dL Normal < 2.0 [facility] Comment on above: Performed By: #### F IBR #### [facility] [address] [place] [address] Urine Microscopicon 11-19-19 20 Bacteria LM.HPF (Urine sed) [#/Area] Negative Normal Negative [facility] Comment on above: Performed By: #### U MAKENNA #### [facility] [address] [place] [address] RBC (U) [#/Vol] 6-10 Abnormal 0-5 [facility] Comment on above: Performed By: #### U MAKENNA #### [facility] [address] [place] [address] Urine Epithelial Cells Auto 6-10 Normal 0-5 [facility] Comment on above: Performed By: #### U MAKENNA #### [facility] [address] [place] [address] Urine Hyaline Casts Auto 1-3 Normal 0-5 [facility] Comment on above: Performed By: #### U MAKENNA #### [facility] [address] [place] [address] Urine WBC Auto 0-2 Normal 0-5 [facility] Comment on above: Performed By: #### U MAKENNA #### [facility] [address] [place] [address] Amylaseon 08-31-2019 Amylase [Catalytic activity/Vol] 64 U/L Normal 22-93 [facility] Comment on above: Performed By: #### F IBR #### [facility] [address] [place] [address] CBC With Platelet and Differ entialon 08-31-2019 Platelet Slide Review Normal Normal [facility] Comment on above: Performed By: #### F IBR #### [facility] [address] [place] [address] Basophils (Bld) [#/Vol] 0.0 10*3/uL Normal 0.0-0.2 [facility] Comment on above: Performed By: #### F IBR #### [facility] [address] [place] [address] Basophils/100 WBC (Bld) 0.3 % Normal [facility] Comment on above: Performed By: #### F IBR #### [facility] [address] [place] [address] Eosinophils (Bld) [#/Vol] 0.0 10*3/uL Normal 0.0-0.7 [facility] Comment on above: Performed By: #### F IBR #### [facility] [address] [place] [address] Eosinophils/100 WBC (Bld) 0.0 % Normal [facility] Comment on above: Performed By: #### F IBR #### [facility] [address] [place] [address] Erythrocyte distribution width (RBC) [Ratio] 13.2 % Normal 11.5-14.5 [facility] Comment on above: Performed By: #### F IBR #### [facility] [address] [place] [address] Hematocrit (Bld) [Volume fraction] 39.2 % Normal 37.0-47.0 [facility] Comment on above: Performed By: #### F IBR #### [facility] [address] [place] [address] Hemoglobin (Bld) [Mass/Vol] 13.5 g/dL Normal 12.0-16.0 [facility] Comment on above: Performed By: #### F IBR #### [facility] [address] [place] [address] Lymphocytes (Bld) [#/Vol] 1.3 10*3/uL Normal 1.0-4.8 [facility] Comment on above: Performed By: #### F IBR #### [facility] [address] [place] [address] Lymphocytes/100 WBC (Bld) 7.1 % Normal [facility] Comment on above: Performed By: #### F IBR #### [facility] [address] [place] [address] MCH (RBC) [Entitic mass] 31.5 pg Critically high 27.0-31.3 [facility] Comment on above: Performed By: #### F IBR #### [facility] [address] [place] [address] MCHC (RBC) [Mass/Vol] 34.5 % Normal 33.0-37.0 [facility] Comment on above: Performed By: #### F IBR #### [facility] [address] [place] [address] MCV (RBC) [Entitic vol] 91.3 fL Normal 82.0-100.0 [facility] Comment on above: Performed By: #### F IBR #### [facility] [address] [place] [address] Monocytes (Bld) [#/Vol] 0.6 10*3/uL Normal 0.2-0.8 [facility] Comment on above: Performed By: #### F IBR #### [facility] [address] [place] [address] Monocytes/100 WBC (Bld) 3.1 % Normal [facility] Comment on above: Performed By: #### F IBR #### [facility] [address] [place] [address] Neutrophils (Bld) [#/Vol] 16.2 10*3/uL Critically high 1.4-6.5 [facility] Comment on above: Performed By: #### F IBR #### [facility] [address] [place] [address] Neutrophils/100 WBC (Bld) 89.5 % Normal [facility] Comment on above: Performed By: #### F IBR #### [facility] [address] [place] [address] Platelets (Bld) [#/Vol] 305 10*3/uL Normal 130-400 [facility] Comment on above: Performed By: #### F IBR #### [facility] [address] [place] [address] RBC (Bld) [#/Vol] 4.29 10*6/uL Normal 4.20-5.40 [facility] Comment on above: Performed By: #### F IBR #### [facility] [address] [place] [address] WBC (Bld) [#/Vol] 18.1 10*3/uL Critically high 4.8-10.8 [facility] Comment on above: Performed By: #### F IBR #### [facility] [address] [place] [address] Comprehensive Metabolic Pane samina 08-31-2019 Albumin [Mass/Vol] 3.9 g/dL Normal 3.5-4.6 [facility] Comment on above: Performed By: #### C MP #### [facility] [address] [place] [address] ALP [Catalytic activity/Vol] 64 U/L Normal 40-130 [facility] Comment on above: Performed By: #### C MP #### [facility] [address] [place] [address] ALT [Catalytic activity/Vol] 8 U/L Normal 0-33 [facility] Comment on above: Performed By: #### C MP #### [facility] [address] [place] [address] Anion gap [Moles/Vol] 18 mmol/L Critically high 9-15 [facility] Comment on above: Performed By: #### C MP #### [facility] [address] [place] [address] AST [Catalytic activity/Vol] 11 U/L Normal 0-35 [facility] Comment on above: Performed By: #### C MP #### [facility] [address] [place] [address] Bilirubin [Mass/Vol] mg/dL Normal 0.2-0.7 [facility] Comment on above: Performed By: #### C MP #### [facility] [address] [place] [address] Calcium [Mass/Vol] 8.8 mg/dL Normal 8.5-9.9 [facility] Comment on above: Performed By: #### C MP #### [facility] [address] [place] [address] Chloride [Moles/Vol] 99 mmol/L Normal 95-107 [facility] Comment on above: Performed By: #### C MP #### [facility] [address] [place] [address] CO2 [Moles/Vol] 21 mmol/L Normal 20-31 [facility] Comment on above: Performed By: #### C MP #### [facility] [address] [place] [address] Creatinine [Mass/Vol] 0.52 mg/dL Normal 0.50-0.90 [facility] Comment on above: Performed By: #### C MP #### [facility] [address] [place] [address] GFR/1.73 sq M predicted among blacks MDRD (S/P/Bld) [Vol rate/Area] mL/min/{1.73_m2} Normal >60 [facility] Comment on above: Result Comment: >60 mL/min/1.73m2 EGFR, calc. for ages 18 and older using the MDRD formula (not corrected for weight), is valid for stable renal function. Performed By: #### C MP #### [facility] [address] [place] [address] GFR/1.73 sq M.predicted MDRD (S/P/Bld) [Vol rate/Area] mL/min/{1.73_m2} Normal >60 [facility] Comment on above: Result Comment: >60 mL/min/1.73m2 EGFR, calc. for ages 18 and older using the MDRD formula (not corrected for weight), is valid for stable renal function. Performed By: #### C MP #### [facility] [address] [place] [address] Globulin (S) [Mass/Vol] 2.9 g/dL Normal 2.3-3.5 [facility] Comment on above: Performed By: #### C MP #### [facility] [address] [place] [address] Glucose [Mass/Vol] 162 mg/dL Critically high 70-99 [facility] Comment on above: Performed By: #### C MP #### [facility] [address] [place] [address] Potassium [Moles/Vol] 3.4 mmol/L Normal 3.4-4.9 [facility] Comment on above: Performed By: #### C MP #### [facility] [address] [place] [address] Protein [Mass/Vol] 6.8 g/dL Normal 6.3-8.0 [facility] Comment on above: Performed By: #### C MP #### [facility] [address] [place] [address] Sodium [Moles/Vol] 138 mmol/L Normal 135-144 [facility] Comment on above: Performed By: #### C MP #### [facility] [address] [place] [address] Urea nitrogen [Mass/Vol] 7 mg/dL Normal 6-20 [facility] Comment on above: Performed By: #### C MP #### [facility] [address] [place] [address] Lipaseon 08-31-2019 Lipase [Catalytic activity/Vol] 21 U/L Normal 12-95 [facility] Comment on above: Performed By: #### F IBR #### [facility] [address] [place] [address] US ABDOMEN LIMITEDon 020 US ABDOMEN LIMITED [...] Jesusita Turner MD 08/31/19 Final result Normal [facility] CBC With Platelet and Differ entialon 08-23-2019 Basophils (Bld) [#/Vol] 0.1 10*3/uL Normal 0.0-0.2 [facility] Comment on above: Performed By: #### L DH #### [facility] [address] [place] [address] Basophils/100 WBC (Bld) 1.1 % Normal [facility] Comment on above: Performed By: #### L DH #### [facility] [address] [place] [address] Eosinophils (Bld) [#/Vol] 0.1 10*3/uL Normal 0.0-0.7 [facility] Comment on above: Performed By: #### L DH #### [facility] [address] [place] [address] Eosinophils/100 WBC (Bld) 0.5 % Normal [facility] Comment on above: Performed By: #### L DH #### [facility] [address] [place] [address] Erythrocyte distribution width (RBC) [Ratio] 12.7 % Normal 11.5-14.5 [facility] Comment on above: Performed By: #### L DH #### [facility] [address] [place] [address] Hematocrit (Bld) [Volume fraction] 36.1 % Low 37.0-47.0 [facility] Comment on above: Performed By: #### L DH #### [facility] [address] [place] [address] Hemoglobin (Bld) [Mass/Vol] 12.4 g/dL Normal 12.0-16.0 [facility] Comment on above: Performed By: #### L DH #### [facility] [address] [place] [address] Lymphocytes (Bld) [#/Vol] 2.2 10*3/uL Normal 1.0-4.8 [facility] Comment on above: Performed By: #### L DH #### [facility] [address] [place] [address] Lymphocytes/100 WBC (Bld) 21.2 % Normal [facility] Comment on above: Performed By: #### L DH #### [facility] [address] [place] [address] MCH (RBC) [Entitic mass] 30.9 pg Normal 27.0-31.3 [facility] Comment on above: Performed By: #### L DH #### [facility] [address] [place] [address] MCHC (RBC) [Mass/Vol] 34.4 % Normal 33.0-37.0 [facility] Comment on above: Performed By: #### L DH #### [facility] [address] [place] [address] MCV (RBC) [Entitic vol] 89.8 fL Normal 82.0-100.0 [facility] Comment on above: Performed By: #### L DH #### [facility] [address] [place] [address] Monocytes (Bld) [#/Vol] 0.7 10*3/uL Normal 0.2-0.8 [facility] Comment on above: Performed By: #### L DH #### [facility] [address] [place] [address] Monocytes/100 WBC (Bld) 6.7 % Normal [facility] Comment on above: Performed By: #### L DH #### [facility] [address] [place] [address] Neutrophils (Bld) [#/Vol] 7.4 10*3/uL Critically high 1.4-6.5 [facility] Comment on above: Performed By: #### L DH #### [facility] [address] [place] [address] Neutrophils/100 WBC (Bld) 70.5 % Normal [facility] Comment on above: Performed By: #### L DH #### [facility] [address] [place] [address] Platelets (Bld) [#/Vol] 304 10*3/uL Normal 130-400 [facility] Comment on above: Performed By: #### L DH #### [facility] [address] [place] [address] RBC (Bld) [#/Vol] 4.03 10*6/uL Low 4.20-5.40 [facility] Comment on above: Performed By: #### L DH #### [facility] [address] [place] [address] WBC (Bld) [#/Vol] 10.5 10*3/uL Normal 4.8-10.8 [facility] Comment on above: Performed By: #### L DH #### [facility] [address] [place] [address] Comprehensive Metabolic Pane samina 08-23-2019 Albumin [Mass/Vol] 3.7 g/dL Normal 3.5-4.6 [facility] Comment on above: Performed By: #### L DH #### [facility] [address] [place] [address] ALP [Catalytic activity/Vol] 53 U/L Normal 40-130 [facility] Comment on above: Performed By: #### L DH #### [facility] [address] [place] [address] ALT [Catalytic activity/Vol] 8 U/L Normal 0-33 [facility] Comment on above: Performed By: #### L DH #### [facility] [address] [place] [address] Anion gap [Moles/Vol] 12 mmol/L Normal 9-15 [facility] Comment on above: Performed By: #### L DH #### [facility] [address] [place] [address] AST [Catalytic activity/Vol] 9 U/L Normal 0-35 [facility] Comment on above: Performed By: #### L DH #### [facility] [address] [place] [address] Bilirubin [Mass/Vol] 0.3 mg/dL Normal 0.2-0.7 [facility] Comment on above: Performed By: #### L DH #### [facility] [address] [place] [address] Calcium [Mass/Vol] 9.0 mg/dL Normal 8.5-9.9 [facility] Comment on above: Performed By: #### L DH #### [facility] [address] [place] [address] Chloride [Moles/Vol] 103 mmol/L Normal 95-107 [facility] Comment on above: Performed By: #### L DH #### [facility] [address] [place] [address] CO2 [Moles/Vol] 22 mmol/L Normal 20-31 [facility] Comment on above: Performed By: #### L DH #### [facility] [address] [place] [address] Creatinine [Mass/Vol] 0.39 mg/dL Low 0.50-0.90 [facility] Comment on above: Performed By: #### L DH #### [facility] [address] [place] [address] GFR/1.73 sq M predicted among blacks MDRD (S/P/Bld) [Vol rate/Area] mL/min/{1.73_m2} Normal >60 [facility] Comment on above: Result Comment: >60 mL/min/1.73m2 EGFR, calc. for ages 18 and older using the MDRD formula (not corrected for weight), is valid for stable renal function. Performed By: #### L DH #### [facility] [address] [place] [address] GFR/1.73 sq M.predicted MDRD (S/P/Bld) [Vol rate/Area] mL/min/{1.73_m2} Normal >60 [facility] Comment on above: Result Comment: >60 mL/min/1.73m2 EGFR, calc. for ages 18 and older using the MDRD formula (not corrected for weight), is valid for stable renal function. Performed By: #### L #### [facility] [address] [place] [address] Globulin (S) [Mass/Vol] 2.7 g/dL Normal 2.3-3.5 [facility] Comment on above: Performed By: #### L DH #### [facility] [address] [place] [address] Glucose [Mass/Vol] 90 mg/dL Normal 70-99 [facility] [facility] Comment on above: Performed By: #### L DH #### [facility] [address] [place] [address] Potassium [Moles/Vol] 3.7 mmol/L Normal 3.4-4.9 [facility] Comment on above: Performed By: #### L DH #### [facility] [address] [place] [address] Protein [Mass/Vol] 6.4 g/dL Normal 6.3-8.0 [facility] Comment on above: Performed By: #### L DH #### [facility] [address] [place] [address] Sodium [Moles/Vol] 137 mmol/L Normal 135-144 [facility] Comment on above: Performed By: #### L DH #### [facility] [address] [place] [address] Urea nitrogen [Mass/Vol] 5 mg/dL Low 6-20 [facility] Comment on above: Performed By: #### L DH #### [facility] [address] [place] [address] Culture, Urineon 08-23-2019 Culture, Urine ORDERED BY: UMESH BOLES SOURCE: Urine Clean Catch COLLECTED: 08/23/19 17:15 ANTIBIOTICS AT IDANIA.: RECEIVED : 08/23/19 18:14 Culture, Urine FINAL 08/25/19 08:20 No growth 24 hours Normal [facility] Comment on above: Performed By: #### F IBR #### [facility] [address] [place] [address] Influenza A and Bon 08-23-20 19 Influenza A by PCR Negative Normal [facility] Comment on above: Result Comment: Effe ctive 04/15/19 Please note methodology and/or reference ranges have changed. Performed By: #### L IPAS #### [facility] [address] [place] [address] Influenza B by PCR Negative Normal [facility] Comment on above: Result Comment: Effe ctive 04/15/19 Please note methodology and/or reference ranges have changed. Performed By: #### L IPAS #### [facility] [address] [place] [address] Magnesiumon 08-23-2019 Magnesium [Mass/Vol] 1.6 mg/dL Low 1.7-2.4 [facility] Comment on above: Performed By: #### M G #### [facility] [address] [place] [address] Urinalysis, reflex to cultur margarita 08-23-2019 Bilirubin Ql (U) Negative Normal Negative [facility] Comment on above: Performed By: #### U AR #### [facility] [address] [place] [address] Clarity (U) TURBID Abnormal Clear [facility] Comment on above: Performed By: #### U AR #### [facility] [address] [place] [address] Color (U) DARK YELLOW Abnormal Straw/Bureau [facility] Comment on above: Performed By: #### U AR #### [facility] [address] [place] [address] Glucose Ql (U) Negative Normal Negative [facility] Comment on above: Performed By: #### U AR #### [facility] [address] [place] [address] Hemoglobin Ql (U) Negative Normal Negative [facility] Comment on above: Performed By: #### U AR #### [facility] [address] [place] [address] Ketones Ql (U) 15 mg/dL Abnormal Negative [facility] Comment on above: Performed By: #### U AR #### [facility] [address] [place] [address] Leukocyte esterase Test strip Ql (U) SMALL Abnormal Negative [facility] Comment on above: Performed By: #### U AR #### [facility] [address] [place] [address] Nitrite Ql (U) Negative Normal Negative [facility] Comment on above: Performed By: #### U AR #### [facility] [address] [place] [address] pH (U) 5.5 [pH] Normal 5.0-9.0 [facility] Comment on above: Performed By: #### U AR #### [facility] [address] [place] [address] Protein Ql (U) TRACE Abnormal Negative [facility] Comment on above: Performed By: #### U AR #### [facility] [address] [place] [address] Specific gravity (U) [Rel density] 1.020 Normal 1.005-1.03 [facility] Comment on above: Performed By: #### U AR #### [facility] [address] [place] [address] Urine Reflexed to Culture YES Normal [facility] Comment on above: Performed By: #### U AR #### [facility] [address] [place] [address] Urobilinogen Qn (U) 0.2 {Ace'U}/dL Normal < 2.0 [facility] Comment on above: Performed By: #### U AR #### [facility] [address] [place] [address] Urine Microscopicon 12-30-20 19 Bacteria LM.HPF (Urine sed) [#/Area] MODERATE Abnormal [facility] Comment on above: Performed By: #### U MAKENNA #### [facility] [address] [place] [address] RBC (U) [#/Vol] 3-5 Abnormal 0-5 [facility] Comment on above: Performed By: #### U MAKENNA #### [facility] [address] [place] [address] Urine Epithelial Cells Auto >100 Critically high 0-5 [facility] Comment on above: Performed By: #### U MAKENNA #### [facility] [address] [place] [address] Urine Hyaline Casts Auto 10-20 Normal 0-5 [facility] Comment on above: Performed By: #### U MAKENNA #### [facility] [address] [place] [address] Urine WBC Auto 10-20 Abnormal 0-5 [facility] Comment on above: Performed By: #### U MAKENNA #### [facility] [address] [place] [address] Provider Note - ED v2on 12-2 Provider [...] Description:CARPAL TUNNEL SURGERY RIGHT Description:D & C TAXONOMIST: Is : yes(1) Is : no(1) RESULTS/VITAL SIGNS VITAL SIGNS: T PRBP SpO2O2(LPM) %FiO2 Method 20-Aug-2019 14:10:[id number] 9 room air, no respiratory support MEDICAL [...] From Triage - ED 20-Aug-2019 14:10 Normal [facility] Risk Screen - Adult Emergenc yon 08-20-2019 [...] instruction; written material Cultural Considerationsnone Developmental Considerationsnone Baptism Considerationsnone Learning Assessment (Other Learner): Learning Assessment (Other Learner): Other learner availableno Pressure Injury/TB/Substance: Pressure Injury: Do you have a coughyes... Has your cough lasted longer than 2 weeksno Admission Risk Screen: Significant IndicatorsComplete CAGE: CAGE: Is this an injured patient at a Trauma Center ([facility]/[place]/[facility]/[place]): no Electronic Signatures: Amna Parekh (STAFF N) (Signed 20-Aug-2019 14:16) Authored: Preferred Language, Advanced Directives, Family Violence Adult, Learning Assessment (Patient), Learning Assessment (Other Learner), Pressure Injury/TB/Substance, CAGE Last Updated: 20-Aug-2019 14:16 by Amna Parekh (STAFF N) Normal [facility] Triage - EDon 08-20-2019 Triage - ED [...] BMI (kg/m2): 30.009 Calculated BSA (m2) 1.94 [place] Coma Scale: Best Eye Response: (E4) spontaneous Best Motor Response: (M6) obeys commands Best Verbal Response: (V5) oriented Marlen Score: 15 Cough lasting greater than 3 [...] immediate family member Language: Spoken Language Preferred: Vietnamese Reading Language Preferred: Vietnamese 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: no transportation mechanic was requested PRIMARY ASSESSMENT MARY PANIAGUA's primary [...] 14:14 by Amna Parekh (STAFF N) Normal [facility] Vital Signs Date Time Vital Sign Value [...] Provider Facility Start: 04-16-2024 ambulatory Hugo Nixon acility:[facility] Start: 03-16-2024 End: 03-16-2024 ambulatory [facility] Start: 02-24-2024 End: 02-24-2024 ambulatory [facility] Start: 02-24-2024 Encounter for gynecological examination (general) (routine) without abnormal findings [facility] Start: 02-24-2024 End: 02-24-2024 ambulatory [facility] Start: 02-24-2024 Encounter for gynecological examination (general) (routine) without abnormal findings [facility] Start: 01-15-2024 End: 01-15-2024 ambulatory [facility] Start: 12-22-2023 ambulatory [facility] Start: 12-15-2023 End: 12-16-2023 ambulatory [facility] Start: 12-15-2023 End: 12-15-2023 ambulatory [facility] Start: 12-02-2023 End: 12-03-2023 ambulatory [facility] Start: 12-02-2023 End: 12-02-2023 ambulatory [facility] Start: 10-10-2023 End: 10-11-2023 ambulatory [facility] Start: 10-09-2023 End: 10-10-2023 ambulatory [facility] Start: 11-13-2022 End: 11-14-2022 ambulatory Archana Garcia Facility:[facility] Start: 06-05-2022 Office outpatient ne w 30 minutes Moe Garner MD Work Phone: [facility] Work Phone: Start: 06-05-2022 ambulatory Ms. Mannie Levy Facility:[id number] Start: 02-22-2021 End: 03-15-2021 Discharged Recurring [employer] Mannie Levy Work Phone: [facility] Off [facility] Start: 07-31-2020 End: 08-03-2020 Patient encounter procedure CHRIS Argueta [facility] Start: 03-16-2020 End: 03-16-2020 Emergency department patient visit [facility] Start: 11-19-2019 End: 11-20-2019 Patient encounter [facility] Start: 08-31-2019 End: 08-31-2019 Patient encounter procedure MANNIE Major LEVY [facility] Start: 08-23-2019 End: 08-23-2019 Emergency department patient visit [facility] Moriah LEVY [facility] Procedures Date Procedure Procedure Detail Performing Clinician Start: 12-15-2023 Follow-up visit Follow-up ARCHANA GARCIA Start: 11-20-2019 Antibody screen Comment on above: Performed By: #### C BCDIF, CMP #### [place] [address] Start: 11-20-2019 Cul prsmptv pthgnc o rganism [...] 11-20-2019 IP CONSULT TO INFECT IOUS DISEASES EHRMILA GUAJARDO Start: 11-20-2019 Gluc bld gluc mntr [...] Immunization Date Immunization Notes Care Provider Fa [facility] 02-22-2021 COVID-19 mRNA,MDL805 b2 (Pfizer) [employer]ranav Levy Work Phone: [facility] Payers Date Payer Category Payer Self-pay [id number] 2022 Unknown [id number] 2018 Unknown [id number] 1984 Unknown [id number] 2.16.8 40.1.148271.3.579.2.182 1984 Unknown [id number] 2.16.8 40.1.909334.3.579.2.182 1984 Unknown [id number] 2.16.8 40.1.604811.3.579.2.182 1984 Unknown [id number] 2.16.8 40.1.041801.3.579.2.182 1984 Unknown [id number] 2.16.8 40.1.489546.3.579.2.182 1984 Unknown [id number] 2.16. 840.1.136368.3.579.2.356 1984 Unknown [id number] 2.16.8 40.1.597055.3.579.2.718 1984 Unknown [id number] 2.16.8 40.1.028407.3.579.2.173 1984 Unknown [id number] 2.16.8 40.1.691001.3.579.2.173 1984 Unknown [id number] 2.16.8 40.1.780798.3.579.2.1286 1984 Unknown [id number] 2.16.8 40.1.913139.3.579.2.1286 1984 Unknown [id number] 2.16.8 40.1.504395.3.579.2.1286 1984 Unknown [id number] 2.16.8 40.1.365720.3.579.2.1286 1984 Unknown [id number] 2.16.8 40.1.491814.3.579.2.983 1984 Unknown [id number] 2.16.8 40.1.072742.3.579.2.1286 1984 Unknown [id number] 2.16.8 40.1.129954.3.579.2.1286 1984 Unknown [id number] 2.16.8 40.1.167104.3.579.2.1286 1984 Unknown [id number] 2.16.8 40.1.821840.3.579.2.1286 1984 Unknown [id number] 2.16.8 40.1.310863.3.579.2.6 1984 Unknown [id number] 2.16.8 40.1.849798.3.579.2.1286 Unknown [employer] Unknown [id number] 2.16.8 40.1.341550.3.579.2.531 Social History Date Type Detail Facility Tobacco smoking stat [facility] Unknown if ever smoked [facility] Start: 1985 Sex Assigned At Female F [facility] Current smoker Current smoker [facility] [...] moderate.This note was created using speech recognition valve repairer software/or [employer] valve repairer services. Despite proofreading, several typographical errors might [...] stapedectomy for otosclerosis is an elective procedure. RL-Ualsxyckvpwvgj-Xbauxvd n Work Phone: Evaluation note Note Date & Type Note Facility Evaluation note No assessment information [facility] Summary Purpose Family History No Family [...] 1 1:00pm Hospital Course Note HNO ID: [id number] Author: Pranav Gipson (ResChana Esquivel MD Service: [...] (more content not included)... Note HNO ID: [id number] Author: Brandan narvaez (Res) MD [place] Service: Obstetrics Author Type: Resident Type: Procedures Filed: 11/20/2019 7:01 PM Note Text: OB BEDSIDE PROCEDURE NOTE [facility] PROCEDURE DATE: November 20, 2019 PROCEDURE START TIME: 6:59 PM PRIMARY PROCEDURALIST: John Lovett MD MAKE READY WORKER(S): None Informed Consent: Informed Consent obtained and on the chart [place] Protocol/Safety Checklist: Sign in Communication: Completed Time [...] (more content not included)... Note HNO ID: [id number] Author: Brandan West) MAXIMO Cline.GRASS CUTTER Service: ? 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 Procedure Findings Note HNO ID: [id number] Author: Brandan narvaez (Rhoda Lovett MD Service: Obstetrics Author Type: Resident Type: Procedures Filed: 11/20/2019 7:01 PM Note Text: OB BEDSIDE PROCEDURE NOTE [facility] PROCEDURE DATE: November 20, 2019 PROCEDURE START TIME: 6:59 PM PRIMARY PROCEDURALIST: John Lovett MD MAKE READY WORKER(S): None Informed Consent: Informed Consent obtained and on the chart [place] Protocol/Safety Checklist: Sign in Communication: Completed Time [...] (more content not included)... Note HNO ID: [id number] Author: Brandan West) MAXIMO Cline.GRASS CUTTER Service: ? 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 MarlynGRASS CUTTER Performed by: CARLOS Preparation Sterility Preparation: hand [...] section and content) DATE CREATED AUTHOR 08/20/2019 [facility] DATE CREATED AUTHOR AUTHOR'S ORGANIZ ATION [facility]/23/2019 [facility] DATE CREATED AUTHOR AUTHOR'S ORGANIZ ATION 08/04/2020 [facility] DATE CREATED AUTHOR AUTHOR'S ORGANIZ ATION 09/01/2020 [facility] DATE CREATED AUTHOR AUTHOR'S ORGANIZ ATION 04/26/2021 [facility] DATE CREATED AUTHOR AUTHOR'S ORGANIZ ATION 06/05/2022 [facility] DATE CREATED AUTHOR AUTHOR'S ORGANIZ ATION 06/05/2022 [employer] DATE CREATED AUTHOR AUTHOR'S ORGANIZ ATION 11/14/2022 [facility] DATE CREATED AUTHOR AUTHOR'S ORGANIZ ATION 10/14/2023 [facility] DATE CREATED AUTHOR AUTHOR'S ORGANIZ ATION 12/16/2023 [facility] DATE CREATED AUTHOR AUTHOR'S ORGANIZ ATION 12/16/2023 [facility] DATE CREATED AUTHOR AUTHOR'S ORGANIZ ATION 12/23/2023 [facility] DATE CREATED AUTHOR AUTHOR'S ORGANIZ ATION 03/11/2024 [facility] DATE CREATED AUTHOR AUTHOR'S ORGANIZ ATION 03/19/2024 [facility] DATE CREATED AUTHOR AUTHOR'S ORGANIZ ATION 04/18/2024 [facility] Goals (unrecognized section and content) [...] BE BASED ON THE PRIMARY CLINICAL RECORDS. [employer] [facility]. provides no warranty or guarantee of the accuracy or completeness of information in this document.
--- NOTE | 2024-04-27 10:47 | CM.DCFOLLOWU ---
1st attempt 04/27/24, no answer
--- NOTE | 2024-04-28 14:28 | CM.DCFOLLOWU ---
2nd attempt 04/28/24, no answer
--- NOTE | 2024-04-29 14:59 | CM.DCFOLLOWU ---
3rd attempt 04/29/24, no answer
--- OUTSIDE RECORDS SUMMARY | 2024-05-07 09:32 | XMS_ITS | CCD ---
Author Organization [facility] Care Team Providers Care Director Prospect Name Role Phone HERMILA GUAJARDO Attending Unavailable [...] Levy Primary Care Unav ailable Marcelo, Stacy [place] Referring Unavaila gibson Garner, Dr. Moe Victoria [...] Referring Unavailable GARCIA, ARCHANA Primary Care Unavailable ARCHANA GARCIA Attending Unavailable GARCIA, ARCHANA Referring Unavailable GARCIA, ARCHANA Primary Care Unavailable GARCIA, ARCHANA Referring Unavailable GARCIA, ARCHANA Primary Care Unavailable GARCIA, ARCHANA Attending Unavailable GARCIA, ARCHANA Referring Unavailable GARCIA, ARCHANA Primary Care Unavailable Hugo Darnell Attending Unavailab Hugo Howe Admitting Unavailab Mannie Quiñones Primary Care Unavailable Medications [...] Reference Range Facility Cytologyon 02-24-2024 Cytology Normal [facility] Comment on above: Result Comment: [facility] [address] [place] [address] Gynecologic Cytology Consultation Patient Name:MARY PANIAGUA:1985 (Age: 38)Gender:FTaken:4Reported:4Physician(s):Mercedez Isbell APRN-CNPDarshan To: Rec. #:[id number]: #[id number] Final Cytologic Interpretation ThinPrep Pap Test (Cervical): Satisfactory for evaluation. A transformation zone component is present. NEGATIVE FOR INTRAEPITHELIAL LESION OR MALIGNANCY. jja/03/05/2024 Interpretation performed at [facility], [address] [place] [address], License number: [id number]. 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 The Pap test is primarily effective for the diagnosis and prevention of squamous cell carcinoma. Regular screening is critical for prevention. ThinPrep liquid-based slides, which meet the Instructor Adjunct Pharmacy Technician criteria for automated screening, have been screened by the ThinPrep Imaging System (as of 05/11/07) along with an additional manual rescreening by a front desk coordinator and, if indicated, by a pathologist. HIGH RISK HPV W/GENOon 02-23 HPV 31+33+35+39+45+51+52+56 +58+59+66+68 DNA FALLON+probe Ql (Cvx) HPV SPECIMEN TYPE ThinPrep HPV 16 Negative (qualifier value) HPV 18 Negative (qualifier value) OTHER HIGH RISK HPV Negative (qualifier value) HPV types 31,33,35,39,45,52,56,5 8,59,66 and 68 DNA were undetectable. Normal [facility] Comment on above: Performed By: #### 7 1431-1 #### [facility] ([id number]) [address] [place] [address], [place] [address] [facility] ([id number]) [address] [place] [address], [address] [place] [address] XR FINGER THUMB LT MIN 2 VWS [...] Lyons MD on 12/16/2023 6:38 AM Normal [facility] XR SPINE CERVICAL 3 VWS OR [...] Lyons MD on 12/16/2023 6:39 AM Normal [facility] ACUTE HEPATITIS PANELon 11-24 ANTI HCV W/PCR REFLX Non-Reactive Normal NRCT [facility] Comment on above: Result Comment: If recent infection suspected, recommend repeat testing (>2 months). Mdiahp-uk-giouez ratio is <0.80. Performed By: #### [place] HP, 29988-4, 68954-4 #### [facility] ([id number]) [address], [address] [place] [address] HEPATITIS A IGM Non-Reactive Normal NRCT [facility] Comment on above: Performed By: #### [place] HP, 02938-4, 65909-2 #### [facility] ([id number]) [address], [address] [place] [address] HEPATITIS B CORE IGM Negative Normal NEG [facility] Comment on above: Performed By: #### A HP, 10675-7, 50270-8 #### [facility] ([id number]) [address], [address] [place] [address] HEPATITIS B SURF AG Negative Normal NEG [facility] Comment on above: Performed By: #### [place] HP, 28673-6, 80597-4 #### [facility] ([id number]) [address] [place] [address], [address] [address] HIV 1+2 Ab+HIV1 p24 Ag IA Ql on 12-15-2023 HIV 1 and 2 Ab/Ag Screen Non-Reactive Normal NRCT [facility] Comment on above: Result Comment: This information [...] or diagnoses. Performed By: #### A , 05064-9, 03929-8 #### [facility] ([id number]) [address] [place] [address], [address] [address] T. pallidum IgG+IgM IA Ql (S )on 12-15-2023 Syphilis Total <0.2 Normal 0.0-0.8 [facility] Comment on above: Result Comment: NON REACTIVE No serologic evidence of infection to Treponema pallidum (syphilis). Repeat testing may be considered in patients with suspected acute or primary syphilis in 2 to 4 weeks. Performed By: #### A , 96674-8, 13320-9 #### [facility] ([id number]) [address] [place] [address], [address] [address] CHLAMYDIA/GC BY PCRon 2023 CHLAMYDIA/GC BY PCR [...] on adequate specimen collection. Normal [facility] Comment on above: Performed By: #### C GS #### [facility] ([id number]) [address] [place] [address], [address] [place] [address] VAGINITIS PANEL PCRon 2023 VAGINITIS PANEL PCR [...] to determine patient diagnosis. Normal [facility] Comment on above: Performed By: #### V PPCR #### [facility] ([id number]) [address] [place] [address], [address] [place] [address] Chlamydia/GC,DNA Ampon 10-13 Chlamydia Probe Negative Normal NEG [facility] Comment on above: Result Comment: CHLA MYDIA [...] G LYHGB, PHEP, SWCGP, TREP, HIVCMB #### [address] [address] Block Machine Operator: Pablo Pelaez MD #### CP, CBC, HCG #### [address] [place] [id number] Block Machine Operator: Manuel Mayorga MD Gonorrhea Probe Negative Normal NEG [facility] Comment on above: Result Comment: NEIS SERIA [...] G LYHGB, PHEP, SWCGP, TREP, HIVCMB #### [address] [id number] Block Machine Operator: Pablo Pelaez MD #### CP, CBC, HCG #### [address] [place] [phone] Block Machine Operator: Manuel Mayorga MD CBCon 10-10-2023 Erythrocyte distribution width (RBC) [Ratio] 13.6 % Normal 11.8-14.4 [facility] Comment on above: Performed By: #### G LYHGB, PHEP, SWCGP, TREP, HIVCMB #### [address] [id number] Block Machine Operator: Pablo Pelaez MD #### CP, CBC, HCG #### [address] [place], [place] 985[address]83 Block Machine Operator: Manuel Mayorga MD Hematocrit (Bld) [Volume fraction] 42.4 % Normal 36.3-47.1 [facility] Comment on above: Performed By: #### G LYHGB, PHEP, SWCGP, TREP, HIVCMB #### [address] [id number] Block Machine Operator: Pablo Pelaez MD #### CP, CBC, HCG #### [address] [place] [address] Block Machine Operator: Manuel Mayorga MD Hemoglobin (Bld) [Mass/Vol] 13.7 g/dL Normal 11.9-15.1 [facility] Comment on above: Performed By: #### G LYHGB, PHEP, SWCGP, TREP, HIVCMB #### [address] [phone] Block Machine Operator: Pablo Pelaez MD #### CP, CBC, HCG #### [address] [place] [address] Block Machine Operator: Manuel Mayorga MD MCH (RBC) [Entitic mass] 28.5 pg Normal 25.2-33.5 [facility] Comment on above: Performed By: #### G LYHGB, PHEP, SWCGP, TREP, HIVCMB #### [address] [address] Block Machine Operator: Pablo Pelaez MD #### CP, CBC, HCG #### [address] [place] [address] Block Machine Operator: Manuel Mayorga MD MCHC (RBC) [Mass/Vol] 32.3 g/dL Normal 28.4-34.8 [facility] Comment on above: Performed By: #### G LYHGB, PHEP, SWCGP, TREP, HIVCMB #### [address] [phone] Block Machine Operator: Pablo Pelaez MD #### CP, CBC, HCG #### [address] [place] [address] Block Machine Operator: Manuel Mayorga MD MCV (RBC) [Entitic vol] 88.3 fL Normal 82.6-102.9 [facility] Comment on above: Performed By: #### G LYHGB, PHEP, SWCGP, TREP, HIVCMB #### [address] [address] Block Machine Operator: Pablo Pelaez MD #### CP, CBC, HCG #### [address] [place], [place] 1043783 Block Machine Operator: Manuel Mayorga MD NRBC Automated 0.0 per 100 WBC Normal 0.0 [facility] Comment on above: Performed By: #### G LYHGB, PHEP, SWCGP, TREP, HIVCMB #### [address] [address] Block Machine Operator: Pablo Pelaez MD #### CP, CBC, HCG #### [address] [place] [phone] Block Machine Operator: Manuel Mayorga MD Platelet mean volume (Bld) [Entitic vol] 9.7 fL Normal 8.1-13.5 [facility] Comment on above: Performed By: #### G LYHGB, PHEP, SWCGP, TREP, HIVCMB #### [address] [address] Block Machine Operator: Pablo Pelaez MD #### CP, CBC, HCG #### [address] [place] [phone] Block Machine Operator: Manuel Mayorga MD Platelets (Bld) [#/Vol] 295 10*3/uL Normal 138-453 [facility] Comment on above: Performed By: #### G LYHGB, PHEP, SWCGP, TREP, HIVCMB #### [address] [address] Block Machine Operator: Pablo Pelaez MD #### CP, CBC, HCG #### [address] [place] [phone] Block Machine Operator: Manuel Mayorga MD RBC (Bld) [#/Vol] 4.80 10*6/uL Normal 3.95-5.11 [facility] Comment on above: Performed By: #### G LYHGB, PHEP, SWCGP, TREP, HIVCMB #### [place] [address] [place] [address] Block Machine Operator: Pablo Pelaez MD #### CP, CBC, HCG #### [facility] [address] [place] [address] Block Machine Operator: Manuel Mayorga MD WBC (Bld) [#/Vol] 5.2 10*3/uL Normal 3.5-11.3 [facility] Comment on above: Performed By: #### G LYHGB, PHEP, SWCGP, TREP, HIVCMB #### [address] [address] Block Machine Operator: Pablo Pelaez MD #### CP, CBC, HCG #### [facility] [address] [place] [address] [place] [address] Block Machine Operator: Manuel Mayorga MD Comp Metabolic Profon 2023 Bilirubin [Mass/Vol] mg/dL Low 0.3-1.2 [facility] Comment on above: Performed By: #### G LYHGB, PHEP, SWCGP, TREP, HIVCMB #### [place] [address] [place] [address] Block Machine Operator: Pablo Pelaez MD #### CP, CBC, HCG #### [facility] [address] [place] [address] [place] [address] Block Machine Operator: Manuel Mayorga MD Albumin [Mass/Vol] 4.1 g/dL Normal 3.5-5.2 [facility] Comment on above: Performed By: #### G LYHGB, PHEP, SWCGP, TREP, HIVCMB #### [place] [address] [place] [address] Block Machine Operator: Pablo Pelaez MD #### CP, CBC, HCG #### [address] [place], [place] 1553783 Block Machine Operator: Manuel Mayorga MD Albumin/Glob Ratio 1.6 Normal 1.0-2.5 [facility] Comment on above: Performed By: #### G LYHGB, PHEP, SWCGP, TREP, HIVCMB #### [address] [address] Block Machine Operator: Pablo Pelaez MD #### CP, CBC, HCG #### [address] [place], [place] [phone] Block Machine Operator: Manuel Mayorga MD Alkaline Phos 86 U/L Normal 35-104 [facility] Comment on above: Performed By: #### G LYHGB, PHEP, SWCGP, TREP, HIVCMB #### [address] [address] Block Machine Operator: Pablo Pelaez MD #### CP, CBC, HCG #### [address] [place], [place] 1942483 Block Machine Operator: Manuel Mayorga MD ALT [Catalytic activity/Vol] 16 U/L Normal 5-33 [facility] Comment on above: Performed By: #### G LYHGB, PHEP, SWCGP, TREP, HIVCMB #### [address] [address] Block Machine Operator: Pablo Pelaez MD #### CP, CBC, HCG #### [facility] [address] [place] [address] Dr. [place], [place] [phone] Block Machine Operator: Manuel Mayorga MD Anion gap [Moles/Vol] 9 mmol/L Normal 9-17 [facility] Comment on above: Performed By: #### G LYHGB, PHEP, SWCGP, TREP, HIVCMB #### [address] [address] Block Machine Operator: Pablo Pelaez MD #### CP, CBC, HCG #### [address] [place], [place] [phone] Block Machine Operator: Manuel Mayorga MD AST [Catalytic activity/Vol] 11 U/L Normal <32 [facility] Comment on above: Performed By: #### G LYHGB, PHEP, SWCGP, TREP, HIVCMB #### [address] [address] Block Machine Operator: Pablo Pelaez MD #### CP, CBC, HCG #### [address] [place] [address] Block Machine Operator: Manuel Mayorga MD BUN/CRE Ratio 13 Normal 9-20 [facility] Comment on above: Performed By: #### G LYHGB, PHEP, SWCGP, TREP, HIVCMB #### [address] [address] Block Machine Operator: Pablo Pelaez MD #### CP, CBC, HCG #### [address] [place], [place] 4341483 Block Machine Operator: Manuel Mayorga MD Calcium [Mass/Vol] 8.9 mg/dL Normal 8.6-10.4 [facility] Comment on above: Performed By: #### G LYHGB, PHEP, SWCGP, TREP, HIVCMB #### [address] [address] Block Machine Operator: Pablo Pelaez MD #### CP, CBC, HCG #### [address] [place], [place] 0053283 Block Machine Operator: Manuel Mayorga MD Chloride [Moles/Vol] 105 mmol/L Normal 98-107 [facility] Comment on above: Performed By: #### G LYHGB, PHEP, SWCGP, TREP, HIVCMB #### [address] [address] Block Machine Operator: Pablo Pelaez MD #### CP, CBC, HCG #### [facility] [address] [place] [address] Dr. [place], [place] [phone] Block Machine Operator: Manuel Mayorga MD CO2 [Moles/Vol] 27 mmol/L Normal 20-31 [facility] Comment on above: Performed By: #### G LYHGB, PHEP, SWCGP, TREP, HIVCMB #### [address] [address] Block Machine Operator: Pablo Pelaez MD #### CP, CBC, HCG #### [facility] [address] [place] [address] [place], [place] 2462683 Block Machine Operator: Manuel Mayorga MD Creatinine [Mass/Vol] 0.8 mg/dL Normal 0.5-0.9 [facility] Comment on above: Performed By: #### G LYHGB, PHEP, SWCGP, TREP, HIVCMB #### [address] [address] Block Machine Operator: Pablo Pelaez MD #### CP, CBC, HCG #### [address] [place] [address] Block Machine Operator: Manuel Mayorga MD GFR/1.73 sq M.predicted among non-blacks MDRD (S/P/Bld) [Vol rate/Area] mL/min/{1.73_m2} Normal >60 [facility] Comment on above: Result Comment: These [...] G LYHGB, PHEP, SWCGP, TREP, HIVCMB #### [address] [address] Block Machine Operator: Pablo Pelaez MD #### CP, CBC, HCG #### [facility] [address] [place] [address] [place] [address] Block Machine Operator: Manuel Mayorga MD Glucose [Mass/Vol] 113 mg/dL High 70-99 [facility] Comment on above: Performed By: #### G LYHGB, PHEP, SWCGP, TREP, HIVCMB #### [address] [address] Block Machine Operator: Pablo Pelaez MD #### CP, CBC, HCG #### [address] [place] [address]1683 Block Machine Operator: Manuel Mayorga MD Potassium [Moles/Vol] 3.9 mmol/L Normal 3.7-5.3 [facility] Comment on above: Performed By: #### G LYHGB, PHEP, SWCGP, TREP, HIVCMB #### [address] [address] Block Machine Operator: Pablo Pelaez MD #### CP, CBC, HCG #### [facility] [address] [place] [address] [place] 8171683 Block Machine Operator: Manuel Mayorga MD Protein [Mass/Vol] 6.6 g/dL Normal 6.4-8.3 [facility] Comment on above: Performed By: #### G LYHGB, PHEP, SWCGP, TREP, HIVCMB #### [place] [address] [place] [address] Block Machine Operator: Pablo Pelaez MD #### CP, CBC, HCG #### [facility] [address] [place], [place] 5698883 Block Machine Operator: Manuel Mayorga MD Sodium [Moles/Vol] 141 mmol/L Normal 135-144 [facility] Comment on above: Performed By: #### G LYHGB, PHEP, SWCGP, TREP, HIVCMB #### [facility] [address] [place] [address] Block Machine Operator: Pablo Pelaez MD #### CP, CBC, HCG #### [facility] [address] [place], [place] 8518983 Block Machine Operator: Manuel Mayorga MD Urea nitrogen [Mass/Vol] 10 mg/dL Normal 6-20 [facility] Comment on above: Performed By: #### G LYHGB, PHEP, SWCGP, TREP, HIVCMB #### [address] [address] Block Machine Operator: Pabol Pelaez MD #### CP, CBC, HCG #### [facility] [address] [place] [address] [place], [place] 2236183 Block Machine Operator: Manuel Mayorga MD HCG Screen, Bloodon 10-10-19 24 HCG Screen, Blood Negative Normal NEG [facility] Comment on above: Result Comment: Spec imens with hCG levels near the threshold of the test (25 mIU/mL) may give a negative or indeterminate result. In such cases, another test should be performed with a new specimen in 48-72 hours. If early is suspected clinically in this setting, correlation with quantitative serum b-hCG level is suggested. [facility] has confirmed the use of plasma for this test. This has not been cleared or approved by the U.S. Food and Drug Administration. The FDA has determined that such clearance is not necessary. Performed By: #### G LYHGB, PHEP, SWCGP, TREP, HIVCMB #### [place] [address] [place] [address] Block Machine Operator: Pablo Pelaez MD #### CP, CBC, HCG #### [address] [place], [place] [phone] Block Machine Operator: Manuel Mayorga MD HIV Ag/Abon 10-10-2023 HIV Ag/Ab Non-Reactive Normal NR [facility] Comment on above: Result Comment: No l aboratory evidence of HIV infection. If acute HIV infection is suspected, consider testing for HIV-1 RNA. Performed By: #### G LYHGB, PHEP, SWCGP, TREP, HIVCMB #### [address] [address] Block Machine Operator: Pablo Pelaez MD #### CP, CBC, HCG #### [address] [place] [address] Block Machine Operator: Manuel Mayorga MD Hemoglobin A1Con 1 Glucose [Mass/Vol] 123 mg/dL Normal [facility] Comment on above: Result Comment: The ADA and AACC recommend providing the estimated average glucose result to permit better patient understanding of their HBA1c result. Performed By: #### G LYHGB, PHEP, SWCGP, TREP, HIVCMB #### [place] [address] [place] [address] Block Machine Operator: Pablo Pelaez MD #### CP, CBC, HCG #### [address] [place] [address] Block Machine Operator: Manuel Mayorga MD HbA1c (Bld) [Mass fraction] 5.9 % Normal 4.0-6.0 [facility] Comment on above: Performed By: #### G LYHGB, PHEP, SWCGP, TREP, HIVCMB #### [facility] [address] [place] [address] Block Machine Operator: Pablo Pelaez MD #### CP, CBC, HCG #### [address] [place], [place] 8867083 Block Machine Operator: Manuel Mayorga MD Hepatitis Acute [facility] 10-10 Hep A Ab,IgM Non-Reactive Normal [facility] Comment on above: Performed By: #### G LYHGB, PHEP, SWCGP, TREP, HIVCMB #### [address] [address] Block Machine Operator: Pablo Pelaez MD #### CP, CBC, HCG #### [address] [place], [place] 5733783 Block Machine Operator: Manuel Mayorga MD Hep B Core Ab,IgM Non-Reactive Normal [facility] Comment on above: Performed By: #### G LYHGB, PHEP, SWCGP, TREP, HIVCMB #### [address] [address] Block Machine Operator: Pablo Pelaez MD #### CP, CBC, HCG #### [address] [place], [place] 2707483 Block Machine Operator: Manuel Mayorga MD Hep B Surf Ag Non-Reactive Normal [facility] Comment on above: Performed By: #### G LYHGB, PHEP, SWCGP, TREP, HIVCMB #### [address] [address] Block Machine Operator: Pablo Pelaez MD #### CP, CBC, HCG #### [address] [place], [place] 2799083 Block Machine Operator: Manuel Mayorga MD Hep C Ab Non-Reactive Normal [facility] Comment on above: Result Comment: [...] G LYHGB, PHEP, SWCGP, TREP, HIVCMB #### [place] [address] [place], [place] 2262708 Block Machine Operator: Pablo Pelaez MD #### CP, CBC, HCG #### [address] [place] [address] Block Machine Operator: Manuel Mayorga MD T.pallidum Ab Screenon 10-10 T.pallidum Ab Screen Non-Reactive Normal NR [facility] Comment on above: Result Comment: T. pallidum antibodies are not detected. There is no serological evidence of infection with T. pallidum (early primary syphilis cannot be excluded). Retest in 2-4 weeks if syphilis is clinically suspect. Performed By: #### G LYHGB, PHEP, SWCGP, TREP, HIVCMB #### [place] [address] [place], [place] 4784708 Block Machine Operator: Pablo Pelaez MD #### CP, CBC, HCG #### [address] [place] [address] Block Machine Operator: Manuel Mayorga MD Trichomonas/Wet Prepon 10-10 Trichomonas/Wet Prep Specimen Descriptio n .VAGINAL SPECIMEN Direct Exam NO YEAST OBSERVED NO TRICHOMONAS SEEN CLUE CELLS SEEN Report Status FINAL 10/10/2023 Abnormal [facility] Comment on above: Performed By: #### W P #### [address] [place] [address] Block Machine Operator: Manuel Mayorga MD Coding Summaryon 11-14-2022 Coding Summary [employer]Base 64 OvdmqgydZNj2pVu+PGhlYW Q+RT3QTDRjW67pkCFcoZ6Z C4eIKD6LPQSJWUGIBE7DSM 5boKT9XAfmV9XemvVw YfnvyHAzKQ06GHw9NVH8rU djGLjbwZ8hgBPgK0k3ClQe QS80mW26DHsgLULdPyJ5Jq ZpbjsgbWFy M9fmUbCebQKtLyl+PHRhYm xlIHdpZHRoPScxMDAlJyBz kIixRK9fRl6rERXxEBUswE xhcHNlOiBj u8vjFRAqHGawFS2bhGcaQ0 NckSQ3KSMvi1a2Co86hWT+ HGQdYCV5uLncUOoys666Al Hav3weNIR6 vIWwWTryRKJ7T73ut8Z6LM GhLDKrWXN9jIR6zH7isPhx clgsE5ZguVEcXdO7VMG5bZ NvcE0mkMcn bqizdN7eFvh+P03XGF8YMN CEYP2YLif1R2LaIrertYH+ QS77HTPpHX80wARuzIRuu3 ovlEi0WqYv KCQxNZQ4tConJFumd2WpAA PwD42tdTXxp1Y6OCQhyCaz rLXrUeOikNY4lR3qQPrkxd zve6xnhcit Rsxck0gepc57sC37G98zEB xcPYHvBCZ9GMJeUYIzuEto sx8puN7mNi0+QUxdd4adi6 xcmKz9ZkVf KQDgiiQnpLqlWPC7a9ObXm 26T8SlxSscw8FxSgd6bf58 qSRme8S3eVN1VLnnUIBtxQ 5hXRqzWsC6 YLAeYhCktR66lXAuWFixGz 3csDmgeLaqJW0xEHGybhxf PKKffE4oUXNshJOvrQlpDW 4wNTBpbjtm i933FaYvYFN8DIOcaLVqY2 UghI0oJyImZIRoKZYhM8Eq iGWaNHytU100VGczWmX8HS SiwmYxK3Df OORizEunLbA7p0N4Jl7Ul5 GaomvwADR8SKglVRZlBdVn PrUiAiP0N9EbWtr0LRBcuQ dqZK4oQ8Ye ZLPvvlhktrfrtBM1HCVaXP PdsM55fTYpWBfuBd7fj7G6 m330GMAcPDLtmD83Na2pqC ogMTBwdCBU pP8psjqrt3tonnlyTnAuRT ThHYh0FWa4ZHOojBjbYvIs GMP6GrT5KYS0sVAxkR0ubN ctyweooZ9y Oyc+J36ccL8tOTI4DBG4bb aqNMAdquSjNF11DC43H1Fv PjwvdGFibGU+PGRpdiBzdH dkTC6tBwCv g2kte9FpARskP5FoQEFgNO igIzo9MNMzZVI3mXJ5bP2s GEIoIUaxg4G6fFZ7Z8Thmv Eoxy4je0qn HTVwGZbhX40ifDDiy4C8NY TsaEC9UEAbpUcxKcNezW94 Oyc+TXWbuFqrz9VoGgdrm6 ulp5ygaMf0 MpQmTAPsrtSkuLmzRLL8r4 HqRb89Y82kWQfoJSFuOAUo PJFjDTZzfVwtiw0egQ4mOn 8+PGNvbCB3 kUL4yS4uPKFrFqI3CTymH3 89MpSlsDShWrass4sit7ds xKp3WtSrGUMvnwAzzLxqQL C6o6AgTf77 I55xQVhaNADeALLvDFYyMR OjmAgsxq8huM9vFd4+PC9j d9qnfx64cS69oAK+PHRkIH V6lPmyDDyp ZJIxcB0uFXqgQyG1WGBqXt HzuO46hZXpEXzlEr9viQkk yDnkUU7bEUNjyglwx299En Hnu0mcTCHh pRYxCAfoTRR1N63bk6B0PV AqKCWyRDB3xMC9rP5nmVok bjogbGVmdDsgdmVydGljYW hhZPjaW665 IHRvcDsnPlBhdGllbnQgTm YfKQy0Y0LyDxv5GUFsrCgi BY9vuAOhHXmlXh2auBcjtM wmGC6wERXw rwfgb503NrFww9lcXGOcvY PnJXyiYAK4Y82sy6W2DUNt TMNyYDX9bJB8xK7dhXjvss ogbGVmdDsg yjQcnHmmZWecHQitJ885RW RvcDsnPkJpcnRoIERhdGU6 GQ36MT95xRCmz7S7eUX0D6 BhZGRpbmct utkrzFC3PPPmVBZbtW68Uq 3ydWdxNo8nJNLiDVK7KRRc jWEcJ5KwjU4zBuNfYHKbNU DlG6LmpZGt NKtiP130BArySjG2JNGpzz UxZ8GsCGXlxLgaLvC4j2Q0 Ep4NG4G5BT48WD97xKEzj7 O4nBF3Y6At ENSnxztkptgpzQM1MGHmRX UjcU52Sc4fcWxoPi6cJDFw SIF7BXPzuMNbG3IbpK1yHl AjMDAwMDAw M4YsgMNjUVfkW881ITjtZs M1XBDeuwGuD5XzKDNvyLex UhP7j6Q2Dh5NVEw3KM16VY 72yOTea1I4 aCJ8N0IvBRMredtxlxwlyC P2WULeAFRumH12Nm1ubFpb Vt8kNQBeCTQ6AWYjaKQwH0 JhxN7oGyKf LSRdDFRpE7HbzHOlYStbZ2 71EPjlUtZ0CUAusjLnC8On KJGwpNqwWyB1f3R9Bg8HZX WtTV78OXB4 aIN1CW71AP48K0ZvRpcwbX FibGU+PHRhYmxlIHdpZHRo ZSbcBCVuIzLkxHcyCU1tSr 9yZGVyLWNv jSjqxPFbZeVge4vdRRXeSK rnVS6foZmjM0WgfJP1BVDx c6e0Nl76H44uY5ZucFD+PG IckUG7sAG5 oM5yZlKdXlN2SZuxW932Fq XnaNLvKexwo2omb0kayRo4 HaE8XHIjsuKvbBtfDHL3l7 JgFi83P31h IHdpZHRoPSIxNSUiIHZhbG jijy2mnA7nSv0+PGNvbCB3 kMA4uW2fIbVxJzD1RWgeF4 49InRvcCIv Smwbb2vcy8fvoKk0KzAfRJ BaauPnvMrjLYU6e3MqDz35 E5ZlkEcym8EmTkk9ex41bT Ivf5G3eSC9 E5SqWVSykirqaQAkiOloGF 0yCXTuapykRFIrdK9yHIFj J5e9XfGoNaG5OBpfH6Cvlw P8JVQexNVc QXaeLTH3O72sd0P2PMAmAQ FoQWZ4dTZ1wF9hdZejaiwz bGVmdDsgdmVydGljYWwtYW nbZ970CHJn iHtvTAOrfI3uFPApxORkrV mfPZ9tLEAmluijAkwLHmRQ VG9uXAJEI4fVSUIGEC92OP 75sNWwo6O6 kZH0Q2NeVKKnnaaxwmlbfN Y0VHUpHGFfgD06rIBzAIlc Wl3mo8I2v409YGWzDOGkzB 52Ae1lzStm GQHhdSSKwH0kqbwpk8rwva udMwShYSXuRPn2USp4GXBk xCyhVlNqXCX6XgS7JUR5vV HfwQ4vfTst yjnpoS4iOlq+MDcvMTIvMT j8DMgoxCE+PISeRRF1uNcn CXqhNQXgfC3bZTFxF4g0Ii EfOqY1TEii I3JdRLYruzahKw34kT0hUp KcFlB5PLznA2TlnpG3PCUj qVHuYYawYLO5K48vx4B8OE MwMDAwMDA7 lTS6pQ0zqEokxwwfmERgvF nzdiAtgOlyXJycUSgrO919 PAZgzObdPqX8GYexCORpPP 51BP64lVVg q6S7yDY4Y7PjFXKotgqvue yxqUR3NRSdMAQbtQ12mQHh HAgxCo3gb1F3q370NWZgXQ YnmM01Rx1e dUteUMSpoOVAsD0xlcxnd1 ofnfymKmPaZTBoXMg9DIb1 FQObwUnnOzImVUW8KwJ5GQ J9sUAsbL8l jBzgfvsylV9jHbf+RkVNQU tUIC56BO51qFMpx4Y5rXN8 M3XrISGwauxgyxwwuHJ6GP FwQPYrdO74 pTYmQOowLy1ab7K6l285GO VpIFHbdR91Za2pePqvWSRk pXWAeT8zdgecp5kwvbfwBt AwMDAwMDt0 KRe1QQHtfOpqGjIcBQZ2Ou S2PFH7uCDxqN7rzSgwotnf tA5sLnr+K8T4E7TcRlmwiF I+AX11MPHl YZ64oSKisXGps8vonOh8Ib FaNGEaFFV4eKwmNUjvq9Pa FXXbW58xuYBpw5H6XTTgmJ xhcHNlOyBl iKU8nJ4dOUmcfuymk4shaa ubFbqdx2mfqx08eD33G87p IHdpZHRoPSIzMCUiIHZhbG qrrc9wfZ7a Ii8+OGVijUW2wBK9yF3sSm MvOoQ9CNstV671StUyvPPl Qainn7azl3gzdPm0UzEwWS IgdmFsaWdu MCD0b9KeQt10P51eSPqiBL NqYCSfABXfQENwzTnyyo5u rG9xOb1+KP1sa5vwfq05dK 48dHI+PHRk KFR4kSpyUZaqLDVqyC3nMI plOsW9MHHaSaTqqX96uETn AKfwIg6zyPvgwNtaLF5qOT Ihegido900 PrCbc8tdJHBetCHdLDjwNL Q1Y47cz5F5FCEgRWTgACJ7 qLW9tL0fsLvyeaearZGfkX sgdmVydGlj TZndNMkwE169KXMexIluGn UlkCHvH1bxhdFIHP0kEnpr dGQ+TIAxGKU8hDbmUBauTT UrqZ1jHNKm O4q6DiNuYqK4SXrxB7Gjvj N7MDVmbYNkFEGaqVUKeU8w azrsk1ionvhrHiVySGZyCA w4DVw9TIPf zHrbHoPpADM2BvI4SBM8eE BxxV7gsHhypvyegM0wUzu+ RklOOjwvdGQ+HOAmIZO8zE xlPSdwYWRk nR0oDCKpH9h9CjHzFpP0QO dnM4QjxqE4UYEbpICqNJGe tEEQaM0tqmqum7eexspgNa AwMDAwMDt0 EGp3SYEivLymRtNnNUS8Si X6OLG4lQUueX4lfRhmfeve kR9sDgp+TVJOOjwvdGQ+PH NxXPI8vHmh JYxdXIVzdW2cXCIwJ7i4Is CpAsK6IRspU3QxqiC0HVVb mLJxBPGsuORTpR4xcrzqe9 xvcjogIzAw HIFoCXz1DPq6EQBhfIseYl IyJYC3GgA4GKK6rFTjzT2y pSmybwyrpY7cXnv+UGF5ZX K6OQ56FU34 A9MfLprwpGUmqEN+PHRhYm xlIHdpZHRoPScxMDAlJyBz tOlwDT9xLa7jSSLmSVVwnH xhcHNlOiBj b2x (more content not included)... Normal [facility] Provider Orderson 11-14-2022 Provider Orders [id number]#1.0 0OTGTIFF Normal [facility] .Auto Diff 1on 11-13-[address] [place] % 7 % Normal 12 [facility] Comment on above: Performed By: #### 6 505325, 0082409, 41747561, 6154195840, 1806322840, 3783314, 9068441559 #### [facility] (DEFAULT) [address] [place] [address] 51834 Baso Abs# 0.1 x10 Normal 0.0-0.2 [facility] Comment on above: Performed By: #### 6 064337, 8229328, 18049384, 7703723565, 4715770547, 6665545, 7132032772 #### [facility] (DEFAULT) [address] [place] [address] 80870 Basophils/100 WBC (Bld) 0.8 % Normal 0.2-2.0 [facility] Comment on above: Performed By: #### 6 936556, 1153349, 96291196, 3919454489, 2628226401, 1085961, 4214446087 #### [facility] (DEFAULT) [address] [place] [address] 61121 Eos Abs# 0.1 x10 Normal 0.0-0.4 [facility] Comment on above: Performed By: #### 6 344428, 2148138, 35821239, 6073918388, 9064169279, 8436215, 3991620827 #### [facility] (DEFAULT) [address] [place] [address] 17486 Eosinophils/100 WBC (Bld) 2.0 % Normal 0.9-4.0 [facility] Comment on above: Performed By: #### 6 325659, 5138182, 13622525, 2749825933, 5761892541, 6659884, 3050916943 #### [facility] (DEFAULT) [address] [place] [address] 62379 Lymph Abs# 1.5 x10 Normal 1.3-2.9 [facility] Comment on above: Performed By: #### 6 671950, 1573027, 18858576, 0702449076, 4396479338, 2213107, 6522165627 #### [facility] (DEFAULT) [address] [place] [address] Lymphocytes/100 WBC (Bld) 21 % Normal 14-48 [facility] Comment on above: Performed By: #### 6 351741, 9830034, 87574945, 7040700408, 5284997758, 5135090, 1673132700 #### [facility] (DEFAULT) [address] [place] [address] [place] Abs# 0.5 x10 Normal 0.0-0.8 [facility] Comment on above: Performed By: #### 6 398952, 8412321, 51578572, 0900726154, 2844000914, 9699325, 8417349125 #### [facility] (DEFAULT) [address] [place] [address] Neut Abs# 4.8 x10 Normal 1.5-9.2 [facility] Comment on above: Performed By: #### 6 700473, 2062620, 76734364, 2632511317, 7898723820, 2122270, 0864036359 #### [facility] (DEFAULT) [address] [place] [address] Neutrophils/100 WBC (Bld) 69 % Normal 44-88 [facility] Comment on above: Performed By: #### 6 305996, 1755654, 76555518, 2984817844, 4202831003, 5190071, 2149905621 #### [facility] (DEFAULT) [address] [place] [address] 50587 CBC w/ Auto Diffon 3 Erythrocyte distribution width (RBC) [Ratio] 14.9 % Normal 11.5-15.0 [facility] Comment on above: Performed By: #### 6 502164, 8804090, 08128057, 9778885313, 8721875579, 1758614, 2521143151 #### [facility] (DEFAULT) [address] [place] [address] Hematocrit (Bld) [Volume fraction] 35.5 % Normal 33.7-40.4 [facility] Comment on above: Performed By: #### 6 517081, 2236518, 89352181, 8015440441, 5465886556, 7659323, 2567951457 #### [facility] (DEFAULT) [address] [place] [address] Hemoglobin (Bld) [Mass/Vol] 12.1 g/dL Normal 11.3-15.9 [facility] Comment on above: Performed By: #### 6 106092, 7303977, 05416556, 7515923109, 8443123758, 3590360, 1719498437 #### [facility] (DEFAULT) [address] [place] [address] Man Diff? Auto Invalid Interpretation Code [facility] Comment on above: Performed By: #### 6 670572, 1422136, 21189680, 4124497316, 4861441659, 2355931, 7802423010 #### [facility] (DEFAULT) [address] [place] [address] MCH (RBC) [Entitic mass] 29 pg Normal 24-34 [facility] Comment on above: Performed By: #### 6 533790, 6338869, 95705978, 2715810495, 7360549017, 5576030, 1945910967 #### [facility] (DEFAULT) [address] [place] [address] MCHC (RBC) [Mass/Vol] 34 g/dL Normal 26-37 [facility] Comment on above: Performed By: #### 6 568055, 4593041, 46698750, 4183538389, 5097925350, 4392605, 6266902598 #### [facility] (DEFAULT) [address] [place] [address] 25655 MCV (RBC) [Entitic vol] 84 fL Normal 81-100 M [facility] Comment on above: Performed By: #### 6 208597, 9617777, 41912034, 6874431395, 7820629806, 3778729, 2866091659 #### [facility] (DEFAULT) [address] [place] [address] Platelet 265 x10 Normal 138-427 [facility] Comment on above: Performed By: #### 6 121900, 1441915, 07126936, 6997387811, 8370273898, 2819835, 0054657566 #### [facility] (DEFAULT) [address] [place] [address] Platelet mean volume (Bld) [Entitic vol] 6.9 fL Normal 6.3-10.2 [facility] Comment on above: Performed By: #### 6 670051, 9329825, 98326002, 6067725535, 5491804405, 1309228, 2942460961 #### [facility] (DEFAULT) [address] [place] [address] RBC 4.22 x10 Normal 3.70-5.30 [facility] Comment on above: Performed By: #### 6 819750, 5311158, 79951939, 5985800806, 9294940126, 9141794, 6051279666 #### [facility] (DEFAULT) [address] [place] [address] WBC 7.0 x10 Normal 3.5-10.5 [facility] Comment on above: Performed By: #### 6 370527, 6960959, 43715499, 5837018807, 1855050690, 7156916, 8109861998 #### [facility] (DEFAULT) [address] [place] [address] CMP Standardon 11-13-2022 eGFR Non AA >60 Invalid Interpretation Code [facility] Comment on above: Performed By: #### 6 232598, 6293228, 29359504, 9501127593, 9094777110, 1586657, 7898260264 #### [facility] (DEFAULT) [address] [place] [address] eGFR AA >60 Invalid Interpretation Code [facility] Comment on above: Performed By: #### 6 141861, 0867257, 98954599, 4028816540, 5157913300, 1450363, 1990268132 #### [facility] (DEFAULT) [address] [place] [address] Albumin [Mass/Vol] 4.0 g/dL Normal 3.5-5.0 [facility] Comment on above: Performed By: #### 6 675319, 3378446, 14350216, 9349304419, 2308406916, 2892373, 7697881072 #### [facility] (DEFAULT) [address] [place] [address] Alk Phos 61 IU/L Normal 32-91 [facility] Comment on above: Performed By: #### 6 664109, 3299902, 22978642, 2288423857, 4422341865, 9153091, 2011308308 #### [facility] (DEFAULT) [address] [place] [address] ALT [Catalytic activity/Vol] 18.0 U/L Normal 14.0-54.0 [facility] Comment on above: Performed By: #### 6 838811, 8727540, 16381567, 1658068974, 2967891645, 5447023, 5563547634 #### [facility] (DEFAULT) [address] [place] [address] 41161 AST [Catalytic activity/Vol] 19 U/L Normal 15-41 [facility] Comment on above: Performed By: #### 6 216403, 7825619, 71319360, 9105998677, 1436557556, 7925208, 9310171894 #### [facility] (DEFAULT) [address] [place] [address] 76684 Bili Total 0.6 mg/dL Normal 0.3-1.2 [facility] Comment on above: Performed By: #### 6 071245, 7822764, 35204363, 9648659839, 2301493343, 6257386, 5642039361 #### [facility] (DEFAULT) [address] [place] [address] 30383 Calcium [Mass/Vol] 8.5 mg/dL Low 8.9-10.3 [facility] Comment on above: Performed By: #### 6 470065, 2626749, 18100480, 2826034134, 1563590646, 9281966, 2297908659 #### [facility] (DEFAULT) [address] [place] [address] 21307 Chloride [Moles/Vol] 107 mmol/L Normal 101-111 [facility] Comment on above: Performed By: #### 6 936157, 0996099, 31388691, 7433046545, 1825271999, 0651659, 4210229659 #### [facility] (DEFAULT) [address] [place] [address] 61414 CO2 [Moles/Vol] 27 mmol/L Normal 21-32 [facility] Comment on above: Performed By: #### 6 222817, 6454707, 64099155, 1782357606, 4963390989, 0782558, 4044544079 #### [facility] (DEFAULT) [address] [place] [address] 74924 Creatinine [Mass/Vol] 0.83 mg/dL Normal 0.60-1.30 [facility] Comment on above: Performed By: #### 6 085879, 4219355, 23630792, 9004624282, 6088021842, 5116072, 3644740573 #### [facility] (DEFAULT) [address] [place] [address] 42662 Glucose [Mass/Vol] 155.0 mg/dL High 74.0-118.0 [facility] Comment on above: Performed By: #### 6 747570, 9855794, 46790799, 4187333759, 2563051477, 8825687, 7930138325 #### [facility] (DEFAULT) [address] [place] [address] 88645 Potassium [Moles/Vol] 3.8 mmol/L Normal 3.6-5.1 [facility] Comment on above: Performed By: #### 6 688470, 3416051, 61784680, 4156233819, 9388243212, 3008326, 9506464944 #### [facility] (DEFAULT) [address] [place] [address] 21622 Protein [Mass/Vol] 6.6 g/dL Normal 6.5-8.1 [facility] Comment on above: Performed By: #### 6 663155, 1558169, 68198934, 7767594553, 9735093052, 1945474, 7588985463 #### [facility] (DEFAULT) [address] [place] [address] 75993 Sodium [Moles/Vol] 137.0 mmol/L Normal 136.0-144.0 [facility] Comment on above: Performed By: #### 6 321198, 5562082, 50422213, 0775240468, 2154712741, 7537513, 5538668979 #### [facility] (DEFAULT) [address] [place] [address] 97634 Urea nitrogen [Mass/Vol] 10 mg/dL Normal 8-26 [facility] Comment on above: Performed By: #### 6 877531, 7993499, 52372085, 1873308720, 2932715723, 0540458, 3757199912 #### [facility] (DEFAULT) [address] [place] [address] 44962 Albumin/Globulin [Mass ratio] 1.5 {ratio} Normal 1.4-2.6 [facility] Comment on above: Performed By: #### 6 398038, 4358891, 18525072, 9690284143, 1015243024, 4607323, 6968651433 #### [facility] (DEFAULT) [address] [place] [address] 09410 Anion gap [Moles/Vol] 6.8 mmol/L Normal 5.0-19.0 [facility] Comment on above: Performed By: #### 6 819446, 1669234, 25274566, 3652301671, 8287570380, 4376874, 9811476981 #### [facility] (DEFAULT) [address] [place] [address] 78013 Globulin (S) [Mass/Vol] 2.6 g/dL Normal 1.5-4.3 [facility] Comment on above: Performed By: #### 6 052143, 0670306, 07716136, 8584315440, 1415090653, 7443111, 4622371257 #### [facility] (DEFAULT) [address] [place] [address] 36873 Osmolality 276 mOsm/L Invalid Interpretation Code [facility] Comment on above: Performed By: #### 6 491913, 0426777, 11123348, 5672133781, 9345853748, 1556409, 4619480187 #### [facility] (DEFAULT) [address] [place] [address] 72196 Urea nitrogen/Creatinine [Mass ratio] 12.0 mg/mg Normal 4.6-16.2 [facility] Comment on above: Performed By: #### 6 439720, 5521348, 77706876, 1959891490, 9684861190, 3050813, 0848087792 #### [facility] (DEFAULT) [address] [place] [address] 09431 Free T4on 11-13-2022 Free T4 [Mass/Vol] 0.71 ng/dL Normal 0.61-1.12 [facility] Comment on above: Performed By: #### 6 046529, 2851315, 03668756, 2502405555, 8413976641, 2874683, 5633825366 #### [facility] (DEFAULT) [address] [place] [address] 70836 HgbA1c Standardon 11-13-2022 .Hb 13.7 Invalid Interpretation Code [facility] Comment on above: Performed By: #### 6 291774, 4265068, 44026871, 8036359566, 0294789799, 5084663, 5151555987 #### [facility] (DEFAULT) [address] [place] [address] 50647 .Hgb A1c 0.72 g/dL Invalid Interpretation Code [facility] Comment on above: Performed By: #### 6 771437, 0780915, 88390918, 5433931290, 0137536327, 7071286, 2926506086 #### [facility] (DEFAULT) [address] [place] [address] Glucose [Mass/Vol] 151 mg/dL Invalid Interpretation Code [facility] Comment on above: Performed By: #### 6 182514, 1419196, 80613274, 3473077375, 3401833080, 3415619, 6236417670 #### [facility] (DEFAULT) [address] [place] [address] HbA1c (Bld) [Mass fraction] 6.9 % High 4.6-6.2 [facility] Comment on above: Performed By: #### 6 778031, 6916196, 66427914, 5257298962, 7170330822, 6647324, 9813894398 #### [facility] (DEFAULT) [address] [place] [address] Lipid Panel Standardon 11-13 Cholesterol [Mass/Vol] 175.0 mg/dL Normal 66.0-200.0 [facility] Comment on above: Performed By: #### 6 436804, 9406550, 34113431, 7663795019, 7906999098, 2787023, 9641073776 #### [facility] (DEFAULT) [address] [place] [address] 25004 Cholesterol in HDL [Mass/Vol] 34 mg/dL Low 40-71 [facility] Comment on above: Performed By: #### 6 755600, 0180329, 37318919, 2839374811, 2064586174, 3978906, 3127645636 #### [facility] (DEFAULT) [address] [place] [address] 32613 Triglyceride [Mass/Vol] 131.0 mg/dL Normal 0.0-150.0 [facility] Comment on above: Performed By: #### 6 275933, 0864713, 60146919, 3442424252, 9710567107, 6308349, 5768211609 #### [facility] (DEFAULT) [address] [place] [address] Cholesterol in LDL [Mass/Vol] 115 mg/dL High 1-100 [facility] Comment on above: Performed By: #### 6 877320, 2883634, 29639396, 8335756923, 0808268668, 1079282, 3110955306 #### [facility] (DEFAULT) [address] [place] [address] 91175 Cholesterol.total/Carol Ann sterol in HDL [Mass ratio] 5.1 {ratio} High 0.0-4.5 [facility] Comment on above: Performed By: #### 6 856098, 0068848, 71200138, 6938083821, 1493276273, 8084558, 5943262802 #### [facility] (DEFAULT) [address] [place] [address] VLDL. 26 mg/dL Normal 5-40 [facility] Comment on above: Performed By: #### 6 792125, 9445883, 16408789, 6314857443, 5028895028, 5736372, 0477084661 #### [facility] (DEFAULT) [address] [place] [address] 97137 TSHon 11-13-2022 TSH Qn 2.33 m[IU]/L Normal 0.45-5.33 [facility] Comment on above: Performed By: #### 6 598742, 1546572, 03802420, 0637073817, 7621381092, 5108833, 8471207933 #### [facility] (DEFAULT) [address] [place] [address] 25634 Initial Visit (Otolaryngolog y)on 06-05-2022 Initial Visit [...] last year [facility] Work Phone: [phone] Tobacco use status CPHS a) Yes M [facility] Work Phone: [phone] Tobacco Screening. Yes [facility] [facility] Work Phone: COVID-19, PCRon 04-25-2021 SARS-CoV-2 (COVID-19) RNA FALLON+probe Ql (Unsp spec) Not detected Normal Not Detect [facility] Comment on above: Result Comment: Test ing was performed using Mems-ID SARS-CoV-2 Assay. Negative results do not preclude [...] oropharyngeal and mid-turbinate specimens. Patient Fact Sheet: https://www.fda.gov/media/190261/download Provider Fact Sheet: https://www.fda.gov/media/891954/download FDA Specimen Types Link: https://www.fda.gov/medical-devices/ wihnhefpqjf-mukvk-57-cxu-dgmvgkw-kfjhzkv/gaom-mideopv-fjle-cov -2 Methodology: RT-PCR Performed By: #### C OVB #### [facility] [address] [place] [id number] Coding Summary.on 08-31-2020 Coding Summary. 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 However, the narrative phrase printed from the coding software may appear abbreviated, or result in slightly different terminology. Revised Coded By: Miranda Gan Revised Date Saved: 08/31/2020 12:26 pm Normal [facility] Discharge Instructionson Discharge Instructions [id number]#1. 00CD:127 Normal [facility] EMS Documentationon 08-24-20 20 EMS Documentation [id number]#1.0 0CD:127 Normal [facility] B hCG Qualon 08-23-2020 Beta hCG Ql Negative Normal [facility] Comment on above: Performed By: #### 1 3369273, 7457820, 6314605, 3834875, 714272739, 4914087, 631753087, 97842984, 3483752, 3804021, 9803815, 1218964, 10778133 ####[facility] [address] [place] [address] [facility] 08-23-2020 Beta hydroxybutyrate [Moles/Vol] 1.04 mmol/L High 0.02-0.27 [facility] Comment on above: Performed By: #### 1 6347271, 0822498, 4093847, 3343379, 595883249, 9380641, 140324134, 47382282, 7394251, 6132194, 1827063, 3229722, 25256577 ####[facility] [address] [place] [address] CT Abdomen/Pelvis w/ Contras ton 08-23-2020 CT [...] 300 Contrast amount in ml's: 100 Normal [facility] ED Clinical Summaryon 2019 ED Clinical Summary [place] [id number] ED Clinical Summary Person Information Name: MARY PANIAGUA/[place] Age: 35 Years : 1985 Sex: Female Language: Equ[place] PCP: MANNIE LEVY CNP Marital Status: Single Visit Id: Visit Reason: Vomiting; Nausea; Epigastric Pain; EPIGASTRIC PAIN, INTRACTABLE UPPER ABOMINAL PAIN Speciality: Acuity: 3 Enc Type: Observation Med Service: Medical Arrival: 08/22/2020 20:19:32 Discharge: LOS: 000 14:55 Checkin: 08/22/2020 20:19:32 Checkout: 08/23/2020 11:14:05 Dispo Type: Admitted as IP to this [facility] EVENTS: Event Name Event Status Request [...] 11:06:57 Patient Care Request 08/23/2020 11:06:57 ADDRESS: [address] [place] [id number] [facility] NOTES: MEDICAL INFORMATION: Prescriptions Given: PATIENT EDUCATION INFORMATION: Instructions: Follow up: DIAGNOSIS: 1:Epigastric abdominal pain; 2:IBS (irritable bowel syndrome); 3:Anxiety [facility] ED Note-Physicianon --20 20 ED Note-Physician Basic [...] vomiting. She states that she sees a supervisor paint in [place]. She has not seen this supervisor paint for quite some time. She states that [...] Appropriate mood & affect. Integumentary: Warm, Dry, [place] Medical Decision Making I rechecked the patient shortly after 12:30 AM. Still complains of the epigastric discomfort. She states she has had this frequently in the past and has been seen by a supervisor paint in [facility]. They believe that it does relate [...] 2 mg/mL Inj, 2 mg, IV Push [id number] [F], 1000 mL, IV promethazine 25 mg/mL Inj, 12.5 mg, IV Push Disposition Plan Patient Discharge Condition Unchanged Discharge Disposition Admit to observation Discharge Prescription List Prescriptions No active prescription medications Follow-up No qualifying data available Attestation Patient signed out to the attending emergency room physician at 2325 Patient was treated and evaluated by the Physician Melting Supervisor. The attending physician was in the Emergency [...] (08/22/20:24:00) Lymph Auto: 7 % Low (08/22/20:24:00) [place] Auto: 4.8 % (08/22/20:24:00) Eos Auto: 0.6 % (08/22/20:24:00) Basophil Auto: 0.9 % (08/22/20:24:00) Neutro Absolute: 12.5 E9/L High (08/22/20:24:00) Lymph Absolute: 1 E9/L (08/22/20:24:00) [place] Absolute: 0.7 E9/L (08/22/20:24:00) Eos Absolute: 0.1 [...] Diagnostic Results No qualifying data available. [facility] Comment on above: Result Comment: Elec tronically Signed By: Pilo Castillo PA-C\.br\Date and Time Signed: 08/22/20 23:21 EST\.br\Electronically Co-Signed By: Blaine Lei MD\.br\Date and Time Co-Signed: 08/23/20 06:27 EST ED Patient Education Noteon 08-23-2020 ED Patient Education Note [facility] ED Patient Summaryon 020 ED Patient Summary [place] [id number] Patient Discharge Instructions Person Information Name: MARY PANIAGUA Age: 35 Years Arrival Date: 08/22/2020 20:19:32 Discharge Diagnosis: 1:Epigastric abdominal pain; 2:IBS (irritable bowel syndrome); 3:Anxiety Primary Care Physician: MANNIE LEVY CNP Provider Information Primary Provider: Blaine Lei MD Advanced Director Hardware:Pilo Castillo PA-C The exam and treatment you received in the Emergency Department were for an urgent problem and are not intended as complete care. It is important that you follow up with a doctor, nurse practitioner, or physician?s supply chain assistant for ongoing care. If your symptoms [...] opioids can be used to help relieve [id number] pain and are often prescribed following a [...] struggling with addiction, tell your health career technical education teacher and ask for guidance or call [facility] National Helpline at 2-876-436-AYAB. v Source: [place] Department of Health and Human Services/Center for Disease Control & Prevention [facility] Medications Given: Medication Dose Route Sodium Chloride 0.9% 1000.00 mL IV Left Arm famotidine 20.00 mg IV Push Left Antecubital Alexander morphine 2.00 mg IV Push Left Arm [...] to serve you. Thank you for choosing [facility] Patient Education Materials: JAY Nunez RACHEL , have received the following patient education materials/instructions and have verbalized understanding: Patient Education Materials: Follow-up Instructions: Patient Signature Date Clinician/Nurse Signature ___ Date 08/23/2020 11:14:07 Normal [facility] [id number] 08-23-2020 HbA1c (Bld) [Mass fraction] 6.4 % High <=5.9 [facility] Comment on above: Performed By: #### 1 [id number], 6908760, 8658576, 0306686, 986011895, 8756239, 124182150, 31829265, 1891026, 1016816, 6555434, 7464364, 83178634 ####[facility] [address] [place] [address] History and Physicalon 08-23 History and Physical [...] (08/22/20:24:00) Lymph Auto: 7 % Low (08/22/20:24:00) [place] Auto: 4.8 % (08/22/20:24:00) Eos Auto: 0.6 % (08/22/20:24:00) Basophil Auto: 0.9 % (08/22/20:24:00) Neutro Absolute: 12.5 E9/L High (08/22/20:24:00) Lymph Absolute: 1 E9/L (08/22/20:24:00) [place] Absolute: 0.7 E9/L (08/22/20::00) Eos Absolute: 0.1 [...] made to ensure accuracy, however, inadvertently computerized air vice marshal mistakes may be present. Problem List/Past Medical [...] she is in agreement. Was able to reimbursement counselor her on smoking cessation. She should follow-up with her primary care physician for an EGD if needed. No changes are being made to her chronic medications at this time. *Please place this as my admission H&P as well as discharge summary* Normal [facility] Comment on above: Result Comment: Elec tronically Signed By: KSENIA MCINTYRE, Romario\.br\Date and Time Signed: 08/23/20 16:30 EST Inpatient Clinical Summaryon 08-23-2020 Inpatient Clinical Summary [place] [address] Clinical Summary Person Information: Name: MARY PANIAGUA Age: 35 Years : 1985 Sex: Female PCP: MANNIE LEVY CNP Marital Status: Single Race: White Ethnicity: Non- or Language: [place] Visit Id: Visit Reason: Vomiting; Nausea; Epigastric Pain; EPIGASTRIC PAIN, INTRACTABLE UPPER ABOMINAL PAIN Speciality: Acuity: Enc Type: Observation Med Service: Medical Arrival: 08/22/2020 20:19:32 Discharge: Dispo Type: Admitted as IP to this Hosp Address: [address] [place] [address] Provider Notes: Diagnosis: 1:Epigastric abdominal pain; 2:IBS [...] With: Address: When: MANNIE LEVY CNP [address] [address] [phone] Within 1 to 2 weeks Patient Education Information: Low-FODMAP Eating Plan; Diet for Irritable Bowel Syndrome Normal [facility] Inpatient Patient Summaryon 08-23-2020 Inpatient Patient Summary [place] [id number] Patient Discharge Instructions PERSON INFORMATION Name: MARY PANIAGUA Date of : 1985 Current Date: 08/23/2020 16:37:09 PHYSICIANS Admitting Physician: Ronaldo Soni MD Primary Care Physician: MANNIE LEVY CNP PCP Phone Number: [phone] Comment: Discharge Diagnosis: 1:Epigastric abdominal pain; 2:IBS [...] With: Address: When: MANNIE LEVY CNP [address] [facility] [address] [place] [address] [phone] Within 1 to 2 weeks In the [...] to follow. Work with a diet and dairy nutrition specialist (dietitian) to make a low-FODMAP [...] Gluten-free pasta, bread, or cereal. Rice noodles. [place] tortillas. Vegetables ? Eggplant, zucchini, cucumber, peppers, green beans, [place] sprouts, cruz sprouts, lettuce, arugula, kale, [place] chard, spinach, candelario greens, bok esthela, summer [...] amounts of goat cheese, brie, mozzarella, parmesan, canadian, and other hard cheeses. Meats and other [...] 04/07/2018 Document Revised: 07/24/2018 Document Reviewed: 04/07/2018 [employer] Patient Education ? 2019 [employer]. Diet for Irritable Bowel Syndrome When you [...] your health care provider and diet and dairy nutrition specialist (dietitian) to find the eating [...] care provider if you should take an nxsm-qqp-qadjsif probiotic to help restore healthy bacteria in [...] symptoms worse: ? Fatty foods, such as hebrew fries. ? Foods that contain gluten, such [...] for Functional Gastrointestinal Disorders: www.iffgd.org ? National [place] of Diabetes and Digestive and Kidney Diseases: [...] Your health care provider or diet and dairy nutrition specialist (dietitian) may recommend that you eat more foods that contain fiber. This information is not intended to replace advice given to you by your health care provider. Make sure you discuss any questions you have with your health care provider. Document Released: 10/31/2004 Document Revised: 12/01/2019 Document Reviewed: 04/14/2018 ElseSaveUp Patient Education ? 2019 [employer]. Medication Leaflets: You may receive a survey from [employer] asking you to rate your care experience. Your feedback is important and will help us understand what we do well and how we can improve the quality of care we provide to you, your loved ones and our community. It?s an honor to serve you. Thank you for choosing [facility] Normal [facility] Magnesiumon 08-23-2020 Magnesium [Mass/Vol] 1.7 mg/dL Normal 1.3-2.4 Fish [facility] Comment on above: Performed By: #### 1 5963182, 9865223, 6977090, 5078783, 077013373, 3875696, 899380768, 94296609, 9746204, 1091004, 3371845, 5609738, 39017236 ####[facility] [address] [place] [address] Monitor Recordon 08-23-2020 Monitor Record 170 20 [id number]#1. 00CD:127 Normal [facility] Monitor Record 170 20 [id number]#1. 00CD:127 Normal [facility] Monitor Record 170.. 20 [id number]#1. 00CD:127 Normal [facility] Monitor Record 170.71. 20 [id number]#1. 00CD:127 Normal [facility] Monitor Record 170.. 20 [id number]#1. 00CD:127 Normal [facility] Monitor Record 170.71. 20 [id number]#1. 00CD:127 Normal [facility] Monitor Record 170.. 20 [id number]#1. 00CD:127 Normal [facility] Monitor Record [id number] 20 [id number]#1. 00CD:127 Normal [facility] Monitor Record [id number] 20 [id number]#1. 00CD:127 Normal [facility] Patient Education - Texton 1 Patient Education - Text Gastroenterology Low-FODMAP Eating Plan FODMAPs (fermentable oligosaccharides, disaccharides, monosaccharides, and polyols) are sugars that are hard for some people to digest. A low-FODMAP eating plan may help some people who have bowel (intestinal) diseases to manage their symptoms. This meal plan can be complicated to follow. Work with a diet and dairy nutrition specialist (dietitian) to make a low-FODMAP [...] Gluten-free pasta, bread, or cereal. Rice noodles. [place] tortillas. Vegetables ? Eggplant, zucchini, cucumber, peppers, green beans, [place] sprouts, cruz sprouts, lettuce, arugula, kale, [place] chard, spinach, candelario greens, bok esthela, summer [...] amounts of goat cheese, brie, mozzarella, parmesan, canadian, and other hard cheeses. Meats and other [...] 04/07/2018 Document Revised: 07/24/2018 Document Reviewed: 04/07/2018 [employer] Patient Education ? 2019 Exhibia. Diet for Irritable Bowel Syndrome When you [...] your health care provider and diet and dairy nutrition specialist (dietitian) to find the eating [...] care provider if you should take an ckud-cya-wssqfgl probiotic to help restore healthy bacteria in [...] symptoms worse: ? Fatty foods, such as hebrew fries. ? Foods that contain gluten, such [...] for Functional Gastrointestinal Disorders: www.iffgd.org ? National [place] of Diabetes and Digestive and Kidney Diseases: [...] Your health care provider or diet and dairy nutrition specialist (dietitian) may recommend that you eat more foods that contain fiber. This information is not intended to replace advice given to you by your health care provider. Make sure you discuss any questions you have with your health care provider. Document Released: 10/31/2004 Document Revised: 12/01/2019 Document Reviewed: 04/14/2018 ElseSaveUp Patient Education ? 2019 [employer] Inc. Normal [facility] RAD - Preliminary Cat Scan R eporton 08-23-2020 RAD - Preliminary Cat Scan Report [id number]#1.0 0CD:127 Normal [facility] U Drug Screenon 08-23-2020 Opiates Screen Ql (U) Positive Abnormal Negative [facility] Comment on above: Result Comment: No c onfirmation requested by Physican\Results verified by repeat analysis\Unconfirmed by alternate method\Critical Result UD_OPIA:POS Called to [facility] ESTRADA AT ER by GILSON PALMA And Read Back For Confirmation at: 08/23/2020 07:57:24 Negative Cutoff: <300 ng/mL Performed By: #### 2 461512 ####[facility] [address] [place] [address] Amphetamines Screen method >1000 ng/mL Ql (U) Negative Normal Negative [facility] Comment on above: Result Comment: Nega tive Cutoff: <1000 ng/mL Performed By: #### 2 280342 ####[facility] [address] [place] [address] Barbiturates Screen Ql (U) Negative Normal Negative [facility] Comment on above: Result Comment: Nega tive Cutoff: <200 ng/mL Performed By: #### 2 173232 ####[facility] [address] [place] [address] Benzodiazepines Ql (U) Negative Normal Negative [facility] Comment on above: Result Comment: Nega tive Cutoff: <200 ng/mL Performed By: #### 2 426068 ####[facility] [address] [place] [address] Cocaine Ql (U) Negative Normal Negative [facility] Comment on above: Result Comment: Nega tive Cutoff: <300 ng/mL Performed By: #### 2 883473 ####[address] [address] Phencyclidine Screen method >25 ng/mL Ql (U) Negative Normal Negative [facility] Comment on above: Result Comment: Nega tive Cutoff: <25 ng/mL These drug screen results are to be used for medical (i.e., treatment) purposes only. Unconfirmed drug screening results must not be used for non-medical purposes (e.g., employment testing, legal testing). Performed By: #### 2 876732 ####[address] [address] Tetrahydrocannabinol Screen method >50 ng/mL Ql (U) Negative Normal Negative [facility] Comment on above: Result Comment: Nega tive Cutoff: <50 ng/mL Performed By: #### 2 486353 ####[address] [address] UA With Cult Reflexon 2019 Bilirubin Ql (U) Negative Normal Negative [facility] Comment on above: Performed By: #### 1 1806213 ####[address] [address] Clarity (U) CLEAR Normal Clear [facility] Comment on above: Performed By: #### 1 2048096 ####[place] [address] [place] [address] Color (U) STRAW Abnormal Yellow [facility] Comment on above: Performed By: #### 1 7398887 ####[address] [address] Epithelial cells.squamous LM.HPF (Urine sed) [#/Area] 0-2 Normal 0-2 [facility] Comment on above: Performed By: #### 1 4212101 ####[facility] [address] [place] [address] Glucose Test strip (U) [Mass/Vol] 2+ Abnormal Negative [facility] Comment on above: Performed By: #### 1 7281013 ####[address] [address] Hemoglobin Ql (U) Negative Normal Negative [facility] Comment on above: Performed By: #### 1 1382070 ####[address] [address] Ketones (U) [Mass/Vol] 1+ Abnormal Negative [facility] Comment on above: Performed By: #### 1 6710888 ####[address] [address] [place].plasma/[place]. RBC (Bld) [Mass ratio] 0-3 Normal 0-3 [facility] Comment on above: Performed By: #### 1 8001222 ####[address] [address] Nitrite Ql (U) Negative Normal Negative [facility] Comment on above: Performed By: #### 1 2901510 ####[address] [address] pH (U) 7.5 [pH] 5.0-9.0 [facility] Comment on above: Performed By: #### 1 9750793 ####[address] [address] Protein (U) [Mass/Vol] Negative Normal Negative [facility] Comment on above: Performed By: #### 1 3089402 ####[address] [address] Specific gravity (U) [Rel density] 1.015 1.005-1.030 [facility] Comment on above: Performed By: #### 1 4726503 ####[facility] [address] [place] [address] UA Spec Desc Clean Catch Normal [facility] Comment on above: Performed By: #### 1 2404563 ####[facility] [address] [place] [address] Urobilinogen Qn (U) 0.2 {Ace'U}/dL Normal 0.0-1.0 [facility] Comment on above: Performed By: #### 1 4836578 ####[place] [address] [place] [address] WBC Auto Ql (U) Negative Normal Negative [facility] Comment on above: Performed By: #### 1 8445257 ####[place] [address] [place] [address] WBC LM.HPF (Urine sed) [#/Area] 0-5 Normal 0-5 [facility] Comment on above: Performed By: #### 1 7050179 ####[address] [address] Auto Diffon 08-22-2020 Basophils/100 WBC (Bld) 0.9 % Normal 0.0-2.0 [facility] Comment on above: Order Comment: Order Added by Discern Expert. Performed By: #### 1 0847893, 1796896, 6477289, 3356129, 016256804, 5580111, 037413815, 11171981, 3302851, 5282572, 8960135, 5442730, 63195511 ####[place] [address] [place] [address] Basophils/Leukocytes Auto (Bld) [Pure # fraction] 0.1 E9/L Normal 0.0-0.2 [facility] Comment on above: Order Comment: Order Added by Discern Expert. Performed By: #### 1 2748951, 2334956, 8067446, 0967503, 549123654, 2350176, 750526794, 17050962, 4468870, 0349648, 5547155, 3946629, 57871108 ####[facility] [address] [place] [address] Eosinophils/100 WBC (Bld) 0.6 % Normal 0.0-8.0 [facility] Comment on above: Order Comment: Order Added by Discern Expert. Performed By: #### 1 9810372, 1162330, 4818782, 3001636, 568583704, 0070081, 830397049, 37524645, 0742908, 9082864, 0197253, 7015015, 42573668 ####[facility] [address] [place] [address] Eosinophils/Leukocytes Auto (Bld) [Pure # fraction] 0.1 E9/L Normal 0.0-0.5 [facility] Comment on above: Order Comment: Order Added by Discern Expert. Performed By: #### 1 5392488, 1239555, 0256472, 6548624, 745891708, 1304782, 488375764, 69357739, 1250787, 6389162, 5408811, 7105775, 04621392 ####[place] [address] [place] [address] Lymphocytes/100 WBC (Bld) 7.0 % Low 14.0-50.0 [facility] Comment on above: Order Comment: Order Added by Discern Expert. Performed By: #### 1 1233770, 1402859, 4648459, 2501945, 153046678, 8768595, 912398705, 53742191, 8312086, 8032694, 8139246, 4545435, 34393930 ####[facility] [address] [place] [address] Lymphocytes/Leukocytes Auto (Bld) [Pure # fraction] 1.0 E9/L Normal 1.0-4.0 [facility] Comment on above: Order Comment: Order Added by Discern Expert. Performed By: #### 1 1870458, 8883592, 1947085, 5628270, 694020559, 1683236, 588927385, 97382968, 5732713, 8289752, 1884420, 6848739, 17958325 ####[facility] [address] [place] [address] Monocytes/100 WBC (Bld) 4.8 % Normal 4.0-14.0 [facility] Comment on above: Order Comment: Order Added by Discern Expert. Performed By: #### 1 6444637, 8183587, 8893557, 3917827, 228183061, 3551937, 692649982, 29627827, 1716054, 2650497, 7906660, 5412788, 21887364 ####[facility] [address] [place] [address] Monocytes/Leukocytes Auto (Bld) [Pure # fraction] 0.7 E9/L Normal 0.2-1.0 [facility] Comment on above: Order Comment: Order Added by Discern Expert. Performed By: #### 1 2527884, 5185373, 4761301, 6986144, 284250952, 5768367, 692807994, 06518149, 0280471, 9132775, 2197976, 9205345, 45060032 ####[facility] [address] [place] [address] Neutrophils/100 WBC (Bld) 86.7 % High 36.0-75.0 [facility] Comment on above: Order Comment: Order Added by Discern Expert. Performed By: #### 1 5017061, 9839387, 3804269, 2601040, 775810146, 4911539, 572180216, 48786709, 6627432, 6923002, 2921009, 8014404, 41337907 ####[facility] [address] [place] [address] Neutrophils/Leukocytes Auto (Bld) [Pure # fraction] 12.5 E9/L High 2.0-7.5 [facility] Comment on above: Order Comment: Order Added by Discern Expert. Performed By: #### 1 4909108, 3286976, 6134596, 3933595, 664943794, 5997279, 364483833, 73883482, 9445389, 5519545, 9864694, 5915707, 45842448 ####[facility] [address] [place] [address] BMPon 08-22-2020 Creatinine [Mass/Vol] 0.8 mg/dL Normal 0.5-1.3 [facility] Comment on above: Performed By: #### 1 8724551, 9243766, 6815939, 8724352, 825198038, 2014191, 353166167, 28542554, 5352157, 5087903, 6254274, 2293172, 37427688 ####[facility] [address] [place] [address] Urea nitrogen [Mass/Vol] 11 mg/dL Normal 5-21 [facility] Comment on above: Performed By: #### 1 2184191, 9562488, 4472830, 9068028, 934728485, 5967355, 592613515, 84123358, 5144183, 4831756, 0686502, 3374574, 58047560 ####[facility] [address] [place] [address] Urea nitrogen/Creatinine [Mass ratio] 14 No Units Normal 10-20 [facility] Comment on above: Performed By: #### 1 0196536, 0183923, 2143345, 4667684, 448687159, 7887859, 251393647, 01925129, 1305400, 0912078, 1021777, 7673711, 62793454 ####[facility] [address] [place] [address] Anion gap [Moles/Vol] 15 mmol/L Normal 6-16 [facility] Comment on above: Performed By: #### 1 8876418, 1591709, 1938857, 1058164, 616279158, 3898335, 579655298, 25946719, 9985575, 2036776, 1207246, 5366462, 87023648 ####[facility] [address] [place] [address] Calcium [Mass/Vol] 9.4 mg/dL Normal 8.9-11.1 [facility] Comment on above: Performed By: #### 1 3019781, 5719312, 1390789, 9879355, 298974994, 2969438, 441314019, 32984342, 5430485, 9223418, 8180317, 2296746, 33728325 ####[facility] [address] [place] [address] Chloride [Moles/Vol] 102 mmol/L Normal 101-111 [facility] Comment on above: Performed By: #### 1 9072047, 7260362, 0818090, 1605907, 155609431, 7150886, 676898608, 05721733, 7150825, 1585166, 9366004, 5488116, 93683972 ####[facility] [address] [place] [address] CO2 [Moles/Vol] 22 mmol/L Normal 21-31 [facility] Comment on above: Performed By: #### 1 8243344, 0537949, 3228587, 7250638, 797773874, 6934132, 549590081, 32020436, 5996082, 1472423, 2991487, 7743324, 43680713 ####[facility] [address] [place] [address] Glucose [Mass/Vol] 208 mg/dL High 55-199 [facility] Comment on above: Result Comment: If t his glucose result represents a fasting glucose, interpretation should refer to the following reference range: 55-99 mg/dL Performed By: #### 1 4433445, 9565954, 2952018, 8666010, 750000291, 0817891, 322803880, 04296854, 6297457, 7854961, 4465909, 5895813, 53190449 ####[facility] [address] [place] [address] Potassium [Moles/Vol] 3.4 mmol/L Low 3.5-5.3 [facility] Comment on above: Performed By: #### 1 9154545, 6464114, 9657054, 3124682, 211223795, 6370310, 980831729, 78829783, 1721474, 9762309, 8439300, 9516261, 05121112 ####[facility] [address] [place] [address] Sodium [Moles/Vol] 136 mmol/L Normal 135-145 [facility] Comment on above: Performed By: #### 1 7914016, 2218753, 4937480, 4577859, 011689759, 1129286, 140419595, 32430867, 8253953, 8151537, 7217743, 6874739, 15251047 ####[place] [address] [place] [address] CBC w/ Auto Diffon Erythrocyte distribution width (RBC) [Ratio] 14.1 % Normal 10.9-14.2 [facility] Comment on above: Performed By: #### 1 5010549, 3067922, 7561772, 8285911, 153475717, 3595453, 008077566, 40835872, 5041335, 9507654, 9204877, 3972416, 76866248 ####[place] [address] [place] [address] Hematocrit (Bld) [Volume fraction] 42.9 % Normal 34.0-46.0 [facility] Comment on above: Performed By: #### 1 5709907, 0670057, 2525942, 6545606, 460715081, 4917151, 924792868, 28855054, 3362816, 5761818, 8988587, 3604771, 46327388 ####[place] [address] [place] [address] Hemoglobin (Bld) [Mass/Vol] 13.9 g/dL Normal 12.0-16.0 [facility] Comment on above: Performed By: #### 1 7847725, 5743481, 5727631, 9405929, 477742204, 3495770, 835359998, 04761807, 7367400, 5181448, 9003835, 0452014, 61822523 ####[facility] [address] [place] [address] MCH (RBC) [Entitic mass] 28.2 pg Normal 27.0-34.0 [facility] Comment on above: Performed By: #### 1 7915163, 8189496, 4250517, 3806681, 882389240, 3393818, 022945510, 77917495, 3902840, 0335224, 9710422, 6054837, 59313389 ####[facility] [address] [place] [address] MCHC (RBC) [Mass/Vol] 32.4 g/dL Normal 31.4-36.0 [facility] Comment on above: Performed By: #### 1 0690872, 7383101, 2189762, 8347175, 112461329, 1430301, 944288746, 37476711, 7492544, 5571002, 1562294, 7385430, 65926718 ####[place] [address] [place] [address] MCV (RBC) [Entitic vol] 87.1 fL Normal 80.0-100.0 [facility] Comment on above: Performed By: #### 1 8027856, 3554178, 3317764, 9548123, 698574935, 0432585, 445566627, 50474624, 9201369, 3054145, 4799876, 1922775, 54784626 ####[facility] [address] [place] [address] Platelet mean volume (Bld) [Entitic vol] 7.4 fL Normal 6.4-10.8 [facility] Comment on above: Performed By: #### 1 6529659, 6004982, 4017496, 4132465, 775484143, 4242252, 765532085, 32246271, 6485454, 7404217, 9039156, 6435640, 20704134 ####[facility] [address] [place] [address] Platelets (Bld) [#/Vol] 357.0 E9/L Normal 150.0-500.0 [facility] Comment on above: Performed By: #### 1 8238181, 3520522, 3378197, 5682673, 768665242, 6456129, 068077052, 38112102, 7269353, 5497333, 5580899, 2776243, 03631313 ####[facility] [address] [place] [address] RBC (Bld) [#/Vol] 4.9 E12/L Normal 4.3-5.9 [facility] Comment on above: Performed By: #### 1 4408267, 7685570, 2720349, 9980148, 714614726, 6472239, 575828741, 40906566, 5437390, 7135547, 2695034, 5673136, 52824392 ####[facility] [address] [place] [address] WBC corrected for nucl RBC Auto (Bld) [#/Vol] 14.4 E9/L High 4.0-11.0 [facility] Comment on above: Performed By: #### 1 7073180, 8504245, 9953366, 1323991, 966083199, 0910317, 698534393, 08704458, 7005548, 7695975, 5803968, 9297344, 53011162 ####[facility] [address] [place] [address] CRPon 08-22-2020 CRP [Mass/Vol] 0.6 mg/dL Normal <=1.9 [facility] Comment on above: Performed By: #### 1 8922213, 6048910, 0064273, 7673139, 816206969, 3919585, 078306502, 47194163, 4986075, 6744375, 3683713, 8779105, 41629063 ####[facility] [address] [place] [address] Consent for Treatmenton 07-26 Consent for Treatment [id number] [id number]. [id number] Normal [facility] Hep Func Panelon 08-22-2020 Albumin [Mass/Vol] 1.7 g/dL Normal 1.1-2.2 [facility] Comment on above: Performed By: #### 1 8495982, 6642101, 9530614, 9044485, 209868549, 9374180, 309267834, 71530315, 7686273, 7592967, 0837585, 3552365, 93200901 ####[facility] [address] [place] [address] Albumin [Mass/Vol] 4.8 g/dL Normal 3.3-5.0 [facility] Comment on above: Performed By: #### 1 1131895, 3690703, 4777431, 8760119, 981199863, 8346768, 543103501, 04353699, 5194331, 8612876, 3364093, 7198662, 37949955 ####[facility] [address] [place] [address] ALP [Catalytic activity/Vol] 75 Int._Unit/L Normal 21-98 [facility] Comment on above: Performed By: #### 1 3860885, 4921580, 2485705, 0274536, 966965283, 8580862, 205315639, 37896516, 7469529, 5885103, 2034043, 6775667, 14563378 ####[facility] [address] [place] [address] ALT No additional P-5'-P [Catalytic activity/Vol] 14 Int._Unit/L Normal 6-46 [facility] Comment on above: Performed By: #### 1 7952029, 9416971, 3790095, 5058918, 541947355, 4669823, 693549917, 00178010, 3781599, 1255924, 9477871, 3357702, 43990491 ####[facility] [address] [place] [address] AST [Catalytic activity/Vol] 13 Int._Unit/L Normal 5-43 [facility] Comment on above: Performed By: #### 1 2792763, 0629848, 8509563, 3579828, 803929300, 6979570, 026537123, 58587236, 2548595, 7716665, 6158907, 1985885, 77451796 ####[facility] [address] [place] [address] Bilirubin [Mass/Vol] 1.0 mg/dL Normal 0.0-1.1 [facility] Comment on above: Performed By: #### 1 6051565, 8057442, 4153136, 2056654, 461201874, 6735885, 611336665, 30614529, 9325229, 3179893, 3298099, 2264426, 26579588 ####[facility] [address] [place] [address]7557 Bilirubin.direct [Mass/Vol] 0.9 mg/dL Normal 0.1-0.9 [facility] Comment on above: Performed By: #### 1 1117388, 6473180, 7708539, 5434028, 606702909, 5632137, 110250525, 10417834, 5368056, 6589832, 6255481, 7365831, 73055145 ####[facility] [address] [place] [address] Bilirubin.direct [Mass/Vol] 0.1 mg/dL Normal 0.1-0.4 [facility] Comment on above: Performed By: #### 1 3093497, 6655512, 7109289, 2042343, 064417347, 3439885, 097717911, 90070648, 1366476, 3029494, 3883673, 5585323, 16545579 ####[facility] [address] [place] [address] Globulin (S) [Mass/Vol] 2.9 g/dL Normal 1.4-4.0 [facility] Comment on above: Performed By: #### 1 8267332, 5353505, 9553078, 9286548, 692291957, 0349031, 662754993, 09684774, 3604901, 6189777, 1282335, 8918047, 84958039 ####[facility] [address] [place] [address] Protein [Mass/Vol] 7.7 g/dL Normal 6.0-7.8 [facility] Comment on above: Performed By: #### 1 9114718, 8184116, 5748467, 6886421, 048225883, 1901257, 283560670, 61469240, 5190066, 0923124, 0540292, 8685467, 36553766 ####[facility] [address] [place] [address] Lactic Acidon 08-22-2020 Lactate [Mass/Vol] 1.1 mmol/L Normal 0.5-2.2 [facility] Comment on above: Performed By: #### 1 6419920, 8738241, 8880739, 3524058, 648717720, 9251998, 679585673, 39331118, 1437089, 9466848, 4846930, 2647949, 02890043 ####[facility] [address] [place] [address] Lipase Levelon 08-22-2020 Lipase [Catalytic activity/Vol] 25 unit/L Normal 13-58 [facility] Comment on above: Performed By: #### 1 7372237, 8155799, 8462946, 8873485, 723991030, 3698098, 012999727, 11989835, 7570725, 1889199, 9587653, 4646665, 48022940 ####[place] [place] [address] Pre-Arrival Noteon 0 Pre-Arrival Note Pre-Arrival Summary Name: , citizens Current Date: 08/22/2020 20:23:24 EST Gender: Female Date of : Age: 35 Pre-Arrival Type: EMS ETA: 08/22/2020 20:35:00 EST Primary Care Physician: Presenting Problem: epigastric pain Pre-Arrival User: Ankit HUBER, David Lange Referring Source: Location: PA Completion Date/Time: 08/22/2020 20:05:00 [facility] Emergency Department Pre-Hospital Report Form Vital Signs: 162/109, 84 pulse, 98%ra Pre-Hospital Report: epigatric pain Treatment in Route: Response to Treatment: Misc. Issues: Normal [facility] Sed Rate Automatedon 020 ESR (Bld) [Velocity] 6 mm/h Normal 0-34 [facility] Comment on above: Performed By: #### 1 6968418, 6459652, 6691222, 7970238, 849956034, 3609034, 066004435, 78198202, 0303734, 7121939, 8781380, 5307216, 93202984 #### [facility] [address] [place] [address] eGFRon 08-22-2020 GFR/1.73 sq M predicted among blacks MDRD (S/P/Bld) [Vol rate/Area] mL/min/{1.73_m2} Normal >=59 [facility] Comment on above: Order Comment: Order added by Discern Expert. Result Comment: eGFR is race adjusted. AA=. Performed By: #### 1 1645585, 1067254, 9292121, 7877251, 225196356, 6210374, 278838556, 80911094, 0781399, 8557239, 6633080, 9563223, 20340419 ####[facility] [address] [place] [address] GFR/1.73 sq M predicted among non-blacks MDRD (S/P/Bld) [Vol rate/Area] mL/min/{1.73_m2} Normal >=59 [facility] Comment on above: Order Comment: Order added by Discern Expert. Result Comment: Metals Sales Representative rico kidney disease could be indicated at eGFR's of less than 60 mL/min/1.73m2. Kidney failure is indicated at less than 15 mL/min/1.73m2. Performed By: #### 1 7613007, 2944661, 4206384, 8249942, 092286571, 8367456, 908256480, 98208279, 0666717, 0691010, 2010073, 8575918, 12162047 ####[facility] [address] [place] [place] [address] Hemoglobin A1con 08-02-2020 HbA1c (Bld) [Mass fraction] 6.3 % Critically high 4.8-5.9 [facility] Comment on above: Performed By: #### A 1C #### [facility] [address] [place] [id number] US NON OB TRANSVAGINALon US NON OB [...] Ab Jennings MD 07/31/20 Final result Normal [facility] US PELVIS COMPLETEon 020 US PELVIS [...] Ab Jennings MD 07/31/20 Final result Normal [facility] Comprehensive Metabolic Pane samina 07-10-2020 Anion gap [Moles/Vol] 12 mmol/L Normal -15 [facility] Comment on above: Performed By: #### C MP #### [facility] [address] [place] [address] Albumin [Mass/Vol] 4.3 g/dL Normal 3.5-4.6 [facility] Comment on above: Performed By: #### C MP #### [facility] [address] [place] [address] ALP [Catalytic activity/Vol] 75 U/L Normal 40-130 [facility] Comment on above: Performed By: #### C MP #### [facility] [address] [place] [address] ALT [Catalytic activity/Vol] 7 U/L Normal 0-33 [facility] Comment on above: Performed By: #### C MP #### [facility] [address] [place] [address] AST [Catalytic activity/Vol] 7 U/L Normal 0-35 [facility] Comment on above: Performed By: #### C MP #### [facility] [address] [place] [address] Bilirubin [Mass/Vol] mg/dL Normal 0.2-0.7 [facility] Comment on above: Performed By: #### C MP #### [facility] [address] [place] [address] Calcium [Mass/Vol] 9.1 mg/dL Normal 8.5-9.9 [facility] Comment on above: Performed By: #### C MP #### [facility] [address] [place] [address] Chloride [Moles/Vol] 100 mmol/L Normal 95-107 [facility] Comment on above: Performed By: #### C MP #### [facility] [address] [place] [address] CO2 [Moles/Vol] 27 mmol/L Normal 20-31 [facility] Comment on above: Performed By: #### C MP #### [facility] [address] [place] [address] Creatinine [Mass/Vol] 0.70 mg/dL Normal 0.50-0.90 [facility] Comment on above: Performed By: #### C MP #### [facility] [address] [place] [address] GFR >60.0 Normal >60 [facility] Comment on above: Result Comment: >60 mL/min/1.73m2 EGFR, calc. for ages 18 and older using the MDRD formula (not corrected for weight), is valid for stable renal function. Performed By: #### C MP #### [facility] [address] [place] [address] GFR/1.73 sq M.predicted among blacks MDRD (S/P/Bld) [Vol rate/Area] mL/min/{1.73_m2} Normal >60 [facility] Comment on above: Result Comment: >60 mL/min/1.73m2 EGFR, calc. for ages 18 and older using the MDRD formula (not corrected for weight), is valid for stable renal function. Performed By: #### C MP #### [facility] [address] [place] [address] Globulin (S) [Mass/Vol] 2.3 g/dL Normal 2.3-3.5 [facility] Comment on above: Performed By: #### C MP #### [facility] [address] [place] [address] Glucose [Mass/Vol] 117 mg/dL Critically high 70-99 M [facility] Comment on above: Performed By: #### C MP #### [facility] [address] [place] [address] Potassium [Moles/Vol] 3.6 mmol/L Normal 3.4-4.9 [facility] Comment on above: Performed By: #### C MP #### [facility] [address] [place] [address] Protein [Mass/Vol] 6.6 g/dL Normal 6.3-8.0 [facility] Comment on above: Performed By: #### C MP #### [facility] [address] [place] [address] Sodium [Moles/Vol] 139 mmol/L Normal 135-144 [facility] Comment on above: Performed By: #### C MP #### [facility] [address] [place] [address] Urea nitrogen [Mass/Vol] 8 mg/dL Normal 6-20 [facility] Comment on above: Performed By: #### C MP #### [facility] [address] [place] [address] TSH w/Reflexon 07-10-2020 TSH w/Reflex 1.110 uIU/mL Normal 0.440-3.86 [facility] Comment on above: Performed By: #### T SHR #### [facility] [address] [place] [address] CASE MANAGEMon 11-22-2019 CASE MANAGEM HNO ID: [id number] Author: Shama Herrera ([place] Service: ? Author Type: Borematic Machine Operator Type: Care Mgt Progress Note [...] essentially having to make two trips from [place]. SW met with Pt at the bedside. [...] time, there is no indication to involve [facility]. Pt is protective and [...] relationship. SW also provided contact information for [facility]. At this time, Jose returned back home and Pt will need to contact [facility] to set up hospital discharge transportation when medically cleared. AVRIL will remain available if additional needs arise. SIGNATURE: VERN Clark PATIENT NAME: Mary Paniagua DATE: November 22, 2019 TIME: 2:28 PM PAGER/CONTACT #: [phone] [facility] HNO ID: [id number] Author: Shama Huggins (Sw) Service: ? Author Type: Borematic Machine Operator Type: Care Mgt Initial Assessment Filed: 11/22/2019 11:17 AM Note Text: CARE MANAGEMENT: ASSESSMENT AND DISCHARGE PLAN SERVICE DATE: November 22, 2019 SERVICE TIME: 9:53 AM PRIMARY CARE PHYSICIAN: No primary care provider on file. 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 ) Pt is a 34 year old [...] the following: She currently is living in [place] with her 8 year old son, Jovan, and her with whom she is currently x4 years. Pt has a 16 year old daughter who lives with her father in [place]. Pt's is not the FOB. FOB is Garth Alamo, he and Pt are not in a relationship, he does not plan to be involved with the baby. Pt plans to establish paternity and file for child support. Pt lost her job at [employer] in August d/t missed work [...] Tx program and [employer] [facility] in [facility]. Pt reported that she was addicted to Crack Cocaine about four years ago and went into treatment at [facility] by the [place] from August 2016-January 2017. Pt has been sober since starting her Tx program. Pt received three tox screens during her on 05/10/19 (pain panel), 07/16/19 (pain panel), and 11/19/19 (utox), all of which were negative. Pt also had involvement with [facility] and her son was in foster care while Pt was in [place]. Pt stated her son was returned to [...] worked with her PCP, Mannie Martin of [facility], who prescribed Pt Lexapro with good effect. Pt reports she has been feeling much better since starting Lexapro. Pt noted she is also linked with a community mental health top case assembler through [facility] who is working on getting Pt linked with Psychiatry there as well. Pt currently engaged in phone meetings with her top case assembler 2x week d/t COVID-19 social distancing requirements. Pt feels well supported by her top case assembler and will continue with her post . Her next appointment/phone call with her top case assembler is scheduled for tomorrow at 10:30. 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 SW will coordinate transportation home for Pt. Pt reports no additional needs at this time, SW will remain available if needs arise. SIGNATURE: VERN Clark PATIENT NAME: Mary Paniagua DATE: November 22, 2019 TIME: 9:53 AM PAGER/CONTACT #: [phone] [facility] PLAN OF CAREon 11-22-2019 PLAN OF CARE HNO ID: [id number] Author: Korin Simeon (Color Finisher) Service: ? Author Type: ? Type: Plan of Care Filed: 11/22/2019 12:55 PM Note Text: PHARMACY BEDSIDE DELIVERY SERVICE Patient Name: Mary Paniagua The marked outpatient medications were Filled at: [facility] and delivered to the patient's bedside to [...] or your Primary Care Provider. Korin Simeon ([employer]) PAGER: [phone] November 22, 2019 12:54 PM [facility] PLAN OF CARE HNO ID: [id number] Author: Korin Simeon ([employer]) Service: ? Author Type: ? Type: Plan of Care Filed: 11/22/2019 10:26 AM Note Text: Pharmacy Discharge Medication Service: This patient has elected to receive their discharge prescriptions through the [facility] Bedside Prescription Delivery program. The prescriptions are currently being processed. A follow-up note will be entered once the prescriptions have been filled and delivered to the patient. Please contact me with any questions or updates to the patient's discharge medications. Korin Simeon ([employer]) DCT Contact Info: [phone] [facility] CARE HNO ID: [id number] Author: Korin Simeon ([employer]) Service: ? Author Type: ? Type: Plan of Care Filed: 11/22/2019 10:26 AM Note Text: SENIOR PRODUCT MANAGER BEDSIDE DELIVERY SURVEY 1. Patient to use [facility] Bedside Delivery - YES Insurance Information as follows: 2. Insurance card on file - YES 3. Credit card for payment - N/A Patient has no prescriptions yet. Please page [phone] upon discharge. [facility] PROGRESSon 11-22-2019 PROGRESS HNO ID: [id number] Author: Mannie Esquivel MD Service: Gynecology Author [...] DATE: November 22, 2019 TIME: 6:03 AM [facility] ANES POSTPROC EVALon 020 ANES POSTPROC EVAL HNO ID: [id number] Author: Eligio Casillas Service: ? Author Type: [...] 97 % 11/21/2019 8:33 AM Jerzy Paniagua [[id number]] Please use the Print Group Hairspring Setter activity in [employer] to make print groups. Contact your founder and chief technical officer for more information. Post Anesthesia Patient Status [...] November 21, 2019 TIME: 8:42 AM CSN: [id number] Normal [facility] Blood Gases,Cord,Art (For [facility] and [facility])on 11-21-2019 Base Deficit 7.4 mmol/L Normal 4.4-8.3 [facility] Comment on above: Performed By: #### C STEVEN CMP #### [place] [id number] HCO3 (Bld) [Moles/Vol] 21 mmol/L Normal 17-27 [facility] Comment on above: Performed By: #### C BCEMIGDIOF CMP #### [place] [address] Oxygen (Bld) [Partial pressure] mm[Hg] High 5.5-30.5 [facility] Comment on above: Performed By: #### C BCEMIGDIOF CMP #### [place] [address] pCO2 53 mm Hg Normal 32-66 [facility] Comment on above: Performed By: #### C BCDIF CMP #### [place] [address] pH (Bld) 7.22 [pH] Normal 7.18-7.38 [facility] Comment on above: Performed By: #### C STEVEN, [facility] #### [facility] [address] [place] [address] LD NOTEon 11-21-2019 LD NOTE HNO ID: [id number] Author: Skyla Claudio Service: Obstetrics Author Type: Physician Type: LANDD Delivery Note Filed: 11/21/2019 4:27 AM Note Text: OBSTETRICS DELIVERY SUMMARY - VAGINAL DELIVERY Gestational Age at Delivery: 36w1d Service Date: 11/21/2019 Service Time: 4:24 AM Jerzy Paniagua [[id number]] Labor Events Rupture Date: 11/21/19 Rupture Time: [...] : 9 Five Minute : 9 Code Princess Anne Called: Yes Type of Code Princess Anne Team Needed: Planned Resuscitation Needed: No, see Peds Delivery Attendance Note/Progress Note 34 year old 36w1d induction of labor for preeclampsia with severe features, PUI for COVID-19 transferred from [facility]. Induction of labor with normal progression [...] DATE: November 21, 2019 TIME: 4:24 AM [facility] NURSING PROGon 11-21-2019 NURSING PROG HNO ID: [id number] Author: Rosario (Rn) CECILE Aiken Service: Obstetrics Author Type: Registered Nurse Type: Nursing Progress Note Filed: 11/21/2019 1:09 PM Note Text: Nursing Progress Note Patient Name: Mary Paniagua Patient Location: [id number] __ Called to room by sitter; pt having 10/10 epigastric pain; anxiety elevated. Pt stated she was diagnosed with IBS, Colitis and peptic ulcer. Bentyl restarted. Resident called to see pt. Regarding pain control AND anxiety. In unit; will come see pt. This note was completed by: Rosario Aiken RN [facility] PROGRESSon 11-21-2019 PROGRESS HNO ID: [id number] Author: Bel Hernandes Service: ? Author Type: [...] DATE: November 21, 2019 TIME: 5:50 PM [facility] PROGRESS HNO ID: [id number] Author: Skyla Claudio Service: Obstetrics Author Type: [...] 24 hours post delivery. Skyla Claudio MD [facility] PROGRESS HNO ID: [id number] Author: Skyla Claudio Service: Obstetrics Author Type: Physician Type: Progress Notes Filed: 11/21/2019 4:43 AM Note Text: COVID-19 result negative. Will discontinue precautions. Routine PP care for preeclampsia. Skyla Claudio MD [facility] PROGRESS HNO ID: [id number] Author: Skyla Claudio Service: Obstetrics Author Type: [...] 2019 TIME: 1:20 AM PAGER/CONTACT #: Normal [facility] Urinalysis with Microscopico n 11-21-2019 Bacteria LM.HPF (Urine sed) [#/Area] Rare Critically abnormal Negative [facility] Comment on above: Performed By: #### U AWMIC #### [place] [address] Bilirubin, Urine Negative Normal Negative [facility] Comment on above: Performed By: #### U AWMIC #### [place] [address] Clarity (U) Hazy Critically abnormal Clear [facility] Comment on above: Performed By: #### U AWMIC #### [place] [address] Color (U) Yellow Normal Yellow [facility] Comment on above: Performed By: #### U AWMIC #### [place] [address] Comments SEE COMMENT Normal [facility] Comment on above: Result Comment: Micr oscopic Examination Performed Performed By: #### U AWMIC #### [place] [address] Epithelial cells LM.HPF (Urine sed) [#/Area] SEE COMMENT Critically abnormal Negative [facility] Comment on above: Result Comment: Rare Squamous Epithelial Cells Performed By: #### U AWMIC #### [place] [address] Glucose Ql (U) Negative Normal [facility] Comment on above: Performed By: #### U AWMIC #### [place] [address] Hemoglobin/Blood,Ur Large Critically abnormal Negative [facility] Comment on above: Performed By: #### U AWMIC #### [place] [id number] Ketones Ql (U) 80 Critically abnormal Negative [facility] Comment on above: Performed By: #### U AWMIC #### [place] [address] Leukest Negative Normal [facility] Comment on above: Performed By: #### U AWMIC #### [place] [phone] Mucus Ql (Urine sed) Present Normal [facility] Comment on above: Performed By: #### U AWMIC #### [place] [phone] Nitrite Ql (U) Negative Normal Negative [facility] Comment on above: Performed By: #### U AWMIC #### [phone] pH (Bld) 5.0 Normal 5.0-8.0 [facility] Comment on above: Performed By: #### U AWMIC #### [place] [phone] Protein (U) [Mass/Vol] Negative Normal Negative [facility] Comment on above: Performed By: #### U AWMIC #### [place] [phone] RBC (U) [#/Vol] Many Critically abnormal Negative [facility] Comment on above: Performed By: #### U AWMIC #### [phone] Specific [place], Ur 1.014 Normal 1.005-1.030 [facility] Comment on above: Performed By: #### U AWMIC #### [place] [address] Urobilinogen Qn (U) <2.0 Normal <2.0 [facility] Comment on above: Performed By: #### U AWMIC #### [place] [phone] WBC (Bld) [#/Vol] Rare Critically abnormal Negative [facility] Comment on above: Performed By: #### U AWMIC #### [phone] Urine Cultureon 11-21-2019 Bacteria identified Cx Nom (U) Sp. Request/Comment: - Specimen received in preservative Culture Result - No growth (<100 CFU/ml) Normal [facility] Comment on above: Performed By: #### P RATIO #### [facility] [address] [place] [address] ANES PRE-OPon 11-20-2019 ANES PRE-OP HNO ID: [id number] Author: Jose West) MAXIMO Cline.NATIONAL SALES CONSULTANT Service: ? Author Type: Nurse Msws Type: Anesthesia Preprocedure Evaluation Filed: 11/20/2019 8:09 PM Note Text: OB ANESTHESIA PRE-PROCEDURE ASSESSMENT PATIENT NAME: Mary Paniagua : 1985 Pt is a 34yo with EGA of 36w0d who presents in labor from [facility]. Had Previous Epidural today from [facility] and removed prior to transport. Pt stated no issues with Placement and stated that the epidural worked for her prior to removal. [facility] ANES UNIVERSITY PRESIDENT: Previous OB anesthetic: Epidural No OB anesthesia [...] 2019 TIME: 8:02 PM : 1985 Normal [facility] CBC With Platelet and Differ entialon 11-20-2019 Basophils (Bld) [#/Vol] 0.1 10*3/uL Normal 0.0-0.2 [facility] Comment on above: Performed By: #### L DH #### [facility] [address] [facility] [address] Basophils/100 WBC (Bld) 0.7 % Normal [facility] Comment on above: Performed By: #### L DH #### [facility] [address] [facility] [address] Eosinophils (Bld) [#/Vol] 0.0 10*3/uL Normal 0.0-0.7 [facility] Comment on above: Performed By: #### L DH #### [facility] [address] [place] [address] Eosinophils/100 WBC (Bld) 0.0 % Normal [facility] Comment on above: Performed By: #### L DH #### [facility] [address] [place] [address] Erythrocyte distribution width (RBC) [Ratio] 13.3 % Normal 11.5-14.5 [facility] Comment on above: Performed By: #### L DH #### [facility] [address] [place] [address] Hematocrit (Bld) [Volume fraction] 33.7 % Low 37.0-47.0 [facility] Comment on above: Performed By: #### L DH #### [facility] [address] [place] [address] Hemoglobin (Bld) [Mass/Vol] 11.3 g/dL Low 12.0-16.0 [facility] Comment on above: Performed By: #### L DH #### [facility] [address] [place] [address] Lymphocytes (Bld) [#/Vol] 1.1 10*3/uL Normal 1.0-4.8 [facility] Comment on above: Performed By: #### L DH #### [facility] [address] [place] [address] Lymphocytes/100 WBC (Bld) 7.6 % Normal [facility] Comment on above: Performed By: #### L DH #### [facility] [address] [place] [address] MCH (RBC) [Entitic mass] 29.9 pg Normal 27.0-31.3 [facility] Comment on above: Performed By: #### L DH #### [facility] [address] [place] [address] MCHC (RBC) [Mass/Vol] 33.7 % Normal 33.0-37.0 [facility] Comment on above: Performed By: #### L DH #### [facility] [address] [place] [address] MCV (RBC) [Entitic vol] 88.9 fL Normal 82.0-100.0 [facility] Comment on above: Performed By: #### L DH #### [facility] [address] [place] [address] Monocytes (Bld) [#/Vol] 0.4 10*3/uL Normal 0.2-0.8 [facility] Comment on above: Performed By: #### L DH #### [facility] [address] [place] [address] Monocytes/100 WBC (Bld) 2.6 % Normal [facility] Comment on above: Performed By: #### L DH #### [facility] [address] [place] [address] Neutrophils (Bld) [#/Vol] 12.5 10*3/uL Critically high 1.4-6.5 [facility] Comment on above: Performed By: #### L DH #### [facility] [address] [place] [address] Neutrophils/100 WBC (Bld) 89.1 % Normal [facility] Comment on above: Performed By: #### L DH #### [facility] [address] [place] [address] Platelets (Bld) [#/Vol] 344 10*3/uL Normal 130-400 [facility] Comment on above: Performed By: #### L DH #### [facility] [address] [place] [address] RBC (Bld) [#/Vol] 3.79 10*6/uL Low 4.20-5.40 [facility] Comment on above: Performed By: #### L DH #### [facility] [address] [place] [address] WBC (Bld) [#/Vol] 14.0 10*3/uL Critically high 4.8-10.8 [facility] Comment on above: Performed By: #### L DH #### [facility] [address] [facility] [id number] CBC and Differentialon 11-19 Abs Baso <0.03 Normal <0.11 [facility] Comment on above: Performed By: #### C BCDIF, CMP #### [place] [phone] [place] 1.18 k/uL High <0.87 [facility] Comment on above: Performed By: #### C BCDIF, CMP #### [place] [phone] Abs Neut 18.44 k/uL High 1.45-7.50 [facility] Comment on above: Performed By: #### C BCDIF, CMP #### [place] [phone] Basophils/100 WBC (Bld) 0.0 % Normal [facility] Comment on above: Performed By: #### C BCDIF, CMP #### [place] [phone] DTYPE Auto Diff Normal [facility] Comment on above: Performed By: #### C BCDIF, CMP #### [place] [phone] Eosinophils (Bld) [#/Vol] 10*3/uL Normal <0.46 [facility] Comment on above: Performed By: #### C BCDIF, CMP #### [place] [phone] Eosinophils/100 WBC (Bld) 0.0 % Normal [facility] Comment on above: Performed By: #### C BCDIF, CMP #### [phone] Erythrocyte distribution width (RBC) [Ratio] 13.7 % Normal 11.5-15.0 [facility] Comment on above: Performed By: #### C BCDIF, CMP #### [place] [phone] Hematocrit (Bld) [Volume fraction] 37.4 % Normal 36.0-46.0 [facility] Comment on above: Performed By: #### C BCDIF, CMP #### [place] [phone] Hemoglobin (Bld) [Mass/Vol] 12.5 g/dL Normal 11.5-15.5 [facility] Comment on above: Performed By: #### C BCDIF, CMP #### [address] Lymphocytes (Bld) [#/Vol] 1.37 10*3/uL Normal 1.00-4.00 [facility] Comment on above: Performed By: #### C BCDIF, CMP #### [address] Lymphocytes/100 WBC (Bld) 6.5 % Normal [facility] Comment on above: Performed By: #### C BCDIF, CMP #### [place] [phone] MCH (RBC) [Entitic mass] 30.0 pG Normal 26.0-34.0 [facility] Comment on above: Performed By: #### C BCDIF, CMP #### [place] [phone] MCHC (RBC) [Mass/Vol] 33.4 g/dL Normal 30.5-36.0 [facility] Comment on above: Performed By: #### C BCDIF, CMP #### [place] [phone] MCV (RBC) [Entitic vol] 89.9 fL Normal 80.0-100.0 [facility] Comment on above: Performed By: #### C BCDIF, CMP #### [place] [phone] Monocytes/100 WBC (Bld) 5.6 % Normal [facility] Comment on above: Performed By: #### C BCDIF, CMP #### [address] [address] Neutrophils/100 WBC (Bld) 87.9 % Normal [facility] Comment on above: Performed By: #### C BCDIF, CMP #### [place] [address] Platelet mean volume (Bld) [Entitic vol] 10.2 fL Normal 9.0-12.7 [facility] Comment on above: Performed By: #### C BCDIF, CMP #### [place] [address] Platelets (Bld) [#/Vol] 437 10*3/uL High 150-400 [facility] Comment on above: Performed By: #### C BCDIF, CMP #### [place] [address] RBC (Bld) [#/Vol] 4.16 10*6/uL Normal 3.90-5.20 [facility] Comment on above: Performed By: #### C BCDIF, CMP #### [place] [address] WBC (Bld) [#/Vol] 21.00 10*3/uL High 3.70-11.00 [facility] Comment on above: Performed By: #### C BCDIF, CMP #### [place] [address] Comp Metabolic Panelon 11-19 Albumin [Mass/Vol] 3.6 g/dL Normal 3.5-5.0 [facility] Comment on above: Performed By: #### C BCDIF, CMP #### [place] [id number] ALP [Catalytic activity/Vol] 134 U/L High 34-123 [facility] Comment on above: Performed By: #### C BCDIF, CMP #### [place] [phone] ALT [Catalytic activity/Vol] 20 U/L Normal 0-45 [facility] Comment on above: Performed By: #### C BCDIF, CMP #### [place] [phone] Anion gap [Moles/Vol] 22 mmol/L High 9-18 [facility] Comment on above: Performed By: #### C BCDIF, CMP #### [place] [phone] AST [Catalytic activity/Vol] 19 U/L Normal 7-40 [facility] Comment on above: Performed By: #### C BCDIF, CMP #### [place] [phone] Bilirubin [Mass/Vol] 0.4 mg/dL Normal 0.2-1.3 [facility] Comment on above: Performed By: #### C BCDIF, CMP #### [place] [phone] Calcium [Mass/Vol] 8.5 mg/dL Normal 8.5-10.5 [facility] Comment on above: Performed By: #### C BCDIF, CMP #### [place] [phone] Chloride [Moles/Vol] 98 mmol/L Normal 98-110 [facility] Comment on above: Performed By: #### C BCDIF, CMP #### [place] [phone] CO2 [Moles/Vol] 12 mmol/L Low 23-32 [facility] Comment on above: Performed By: #### C BCDIF, CMP #### [place] [phone] Creatinine [Mass/Vol] 0.51 mg/dL Low 0.70-1.40 [facility] Comment on above: Performed By: #### C BCDIF, CMP #### [place] [phone] eGFR- Amer. >60 Normal >60 [facility] Comment on above: Performed By: #### C BCDIF, CMP #### [place] [phone] GFR/1.73 sq M predicted among non-blacks MDRD (S/P/Bld) [Vol rate/Area] mL/min/{1.73_m2} Normal >60 [facility] Comment on above: Performed By: #### C BCDIF, CMP #### [place] [phone] Glucose [Mass/Vol] 145 mg/dL High 65-100 [facility] Comment on above: Performed By: #### C BCDIF, CMP #### [place] [phone] Potassium [Moles/Vol] 3.2 mmol/L Low 3.5-5.0 [facility] Comment on above: Performed By: #### C BCDIF, CMP #### [place] [phone] Protein [Mass/Vol] 6.3 g/dL Normal 6.0-8.4 [facility] Comment on above: Performed By: #### C BCDIF, CMP #### [place] [phone] Sodium [Moles/Vol] 132 mmol/L Normal 132-148 [facility] Comment on above: Performed By: #### C BCDIF, CMP #### [place] [phone] Urea nitrogen [Mass/Vol] 4 mg/dL Low 8-25 [facility] Comment on above: Performed By: #### C BCDIF, CMP #### [place] [phone] Comprehensive Metabolic Pane samina 11-20-2019 Albumin [Mass/Vol] 2.9 g/dL Low 3.5-4.6 [facility] Comment on above: Performed By: #### L IPAS #### [facility] [address] [place] [address] ALP [Catalytic activity/Vol] 112 U/L Normal 40-130 [facility] Comment on above: Performed By: #### L IPAS #### [facility] [address] [place] [address] ALT [Catalytic activity/Vol] 13 U/L Normal 0-33 [facility] Comment on above: Performed By: #### L IPAS #### [facility] [address] [place] [address] Anion gap [Moles/Vol] 15 mmol/L Normal 9-15 [facility] Comment on above: Performed By: #### L IPAS #### [facility] [address] [place] [address] AST [Catalytic activity/Vol] 13 U/L Normal 0-35 [facility] Comment on above: Performed By: #### L IPAS #### [facility] [address] [place] [address] Bilirubin [Mass/Vol] 0.3 mg/dL Normal 0.2-0.7 [facility] Comment on above: Performed By: #### L IPAS #### [facility] [address] [place] [address] Calcium [Mass/Vol] 7.8 mg/dL Low 8.5-9.9 [facility] Comment on above: Performed By: #### L IPAS #### [facility] [address] [place] [address] Chloride [Moles/Vol] 102 mmol/L Normal 95-107 [facility] Comment on above: Performed By: #### L IPAS #### [facility] [address] [place] [address] CO2 [Moles/Vol] 16 mmol/L Low 20-31 [facility] Comment on above: Performed By: #### L IPAS #### [facility] [address] [place] [address] Creatinine [Mass/Vol] 0.41 mg/dL Low 0.50-0.90 [facility] Comment on above: Performed By: #### L IPAS #### [facility] [address] [place] [address] GFR/1.73 sq M predicted among blacks MDRD (S/P/Bld) [Vol rate/Area] mL/min/{1.73_m2} Normal >60 [facility] Comment on above: Result Comment: >60 mL/min/1.73m2 EGFR, calc. for ages 18 and older using the MDRD formula (not corrected for weight), is valid for stable renal function. Performed By: #### L IPAS #### [facility] [address] [place] [address] GFR/1.73 sq M.predicted MDRD (S/P/Bld) [Vol rate/Area] mL/min/{1.73_m2} Normal >60 [facility] Comment on above: Result Comment: >60 mL/min/1.73m2 EGFR, calc. for ages 18 and older using the MDRD formula (not corrected for weight), is valid for stable renal function. Performed By: #### L IPAS #### [facility] [address] [place] [address] Globulin (S) [Mass/Vol] 2.8 g/dL Normal 2.3-3.5 [facility] Comment on above: Performed By: #### L IPAS #### [facility] [address] [place] [address] Glucose [Mass/Vol] 123 mg/dL Critically high 70-99 [facility] Comment on above: Performed By: #### L IPAS #### [facility] [address] [place] [address] Potassium [Moles/Vol] 3.4 mmol/L Normal 3.4-4.9 [facility] Comment on above: Performed By: #### L IPAS #### [facility] [address] [place] [address] Protein [Mass/Vol] 5.7 g/dL Low 6.3-8.0 [facility] Comment on above: Performed By: #### L IPAS #### [facility] [address] [place] [address] Sodium [Moles/Vol] 133 mmol/L Low 135-144 [facility] Comment on above: Performed By: #### L IPAS #### [facility] [address] [place] [address] Urea nitrogen [Mass/Vol] 5 mg/dL Low 6-20 [facility] Comment on above: Performed By: #### L IPAS #### [facility] [address] [place] [address] Coronavirus 2019on 0 COVID 19 Result [employer] Negative Normal Negative for COVID19 (SARS CoV2) by PCR. [facility] Comment on above: Result Comment: This test was developed and its performance characteristics determined by [facility]'s [facility] [place]. This test has been authorized by FDA [...] Performed By: #### C BCDIF, CMP #### [place] [address] COVID 19 Source [employer] Nasopharyngeal Swab Normal [facility] Comment on above: Performed By: #### C BCDIF, CMP #### [place] [address] HISTORY PHYSICALon 0 HISTORY PHYSICAL HNO ID: [id number] Author: Skyla Claudio Service: Obstetrics Author Type: [...] Patient is here sent as transfer from [facility] where she presented with abdominal pain, N/V/D. RUQ ultrasound was unremarkable. She was suspected to be laboring and was given epidural with improvement of pain. She was given BMZ at [facility] on 11/18 PM. She had watery diarrhea which was sent for C.diff. She has a history of GI complaints and had workup including EGD and colonoscopy in 2018. She was admitted for similar GI complaints in August 2019 at [facility]. She also was noted to have [...] counseling. She received Ativan x 2 at [facility]. GBS was collected at [facility]. She endorses suicidal ideations. She has [...] Assessment/Plan 34 year old [id number]:[id number]. Transfer from [facility]. Preeclampsia with severe features based on BP. No STRICK[place], no hyperreflexia. Induction of labor. Will hold magnesium due to concern for possible respiratory compromise. Consider in active labor or PP. Respiratory complaints with GI complaints, ill appearing. Influenza negative. COVID-19 testing in process. Contact and droplet precautions plus eyewear. GDMA1. Received one dose BMZ at [facility]-- will likely reflect in elevated BS [...] Anti-emetics, IVF hydration, analgesia. C.diff pending from [facility]. Will evaluate further after delivery if continued symptoms. IOL-- Dating c/w 9 week ultrasound. FHR is category 1 (no variable appreciated). No recent US for growth, clinically 7# but limited d/t patient body habitus. GBS unknown-- specimen collected at [facility]. PCN for GBS prophylaxis. Patient desires [...] 20, 2019 TIME: 4:44 PM PAGER/CONTACT #: [facility] POCT Glucoseon 11-20-2019 Glucose [Mass/Vol] 128 mg/dL Critically high 60-115 M [facility] Comment on above: Performed By: #### L DH #### [facility] [address] [place] [address] POC Performed on ACCU-CHEK [facility] Comment on above: Performed By: #### L DH #### [facility] [address] [place] [address] Glucose [Mass/Vol] 122 mg/dL Critically high 60-115 [facility] Comment on above: Performed By: #### P GLU #### [facility] [address] [place] [address] POC Performed on ACCU-CHEK [facility] Comment on above: Performed By: #### P GLU #### [facility] [address] [place] [address] Glucose [Mass/Vol] 126 mg/dL Critically high 60-115 M [facility] Comment on above: Performed By: #### F IBR #### [facility] [address] [facility] [address] POC Performed on ACCU-CHEK Normal [facility] Comment on above: Performed By: #### F IBR #### [facility] [address] [facility] [address] Protein/Creatinine Ratioon 0 11-20-2019 Creatinine,Urine,Ran 53.2 mg/dL Normal 20-300 [facility] Comment on above: Performed By: #### P RATIO #### [phone] Protein (U) [Mass/Vol] 47 mg/dL High 0-20 [facility] Comment on above: Performed By: #### P RATIO #### [place] [phone] Protein/Creatinine Ratio 0.9 High <0.2 [facility] Comment on above: Performed By: #### P RATIO #### [place] [phone] Rapid PCR FLU/RSVon 11-20-19 20 Influenza A PCR Negative [facility] Comment on above: Performed By: #### F LRSV #### [address] Influenza B PCR Negative [facility] Comment on above: Performed By: #### F LRSV #### [place] [phone] RSV PCR Negative [facility] Comment on above: Performed By: #### F LRSV #### [address] Specimen source Nom (Unsp spec) Nasopharyngeal Swab [facility] Comment on above: Performed By: #### F LRSV #### [phone] Type and Scr,Prenatlon 11-19 ABO/RH(D) Positive [facility] Comment on above: Performed By: #### C BCDIF, CMP #### [facility] [address] [place] [address] Urinalysis, reflex to micros copicon 11-20-2019 Bilirubin Ql (U) Negative Normal Negative [facility] Comment on above: Performed By: #### L IPAS #### [facility] [address] [place] [address] Clarity (U) Clear Normal Clear [facility] Comment on above: Performed By: #### L IPAS #### [facility] [address] [place] [address] Color (U) Yellow Normal Straw/[place] [facility] Comment on above: Performed By: #### L IPAS #### [facility] [address] [place] [address] Glucose Ql (U) Negative Normal Negative [facility] Comment on above: Performed By: #### L IPAS #### [facility] [address] [place] [address] Hemoglobin Ql (U) Negative Normal Negative [facility] Comment on above: Performed By: #### L IPAS #### [facility] [address] [place] [address] Ketones Ql (U) >=80 Abnormal Negative [facility] Comment on above: Performed By: #### L IPAS #### [facility] [address] [place] [address] Leukocyte esterase Test strip Ql (U) Negative Normal Negative [facility] Comment on above: Performed By: #### L IPAS #### [facility] [address] [place] [address] Nitrite Ql (U) Negative Normal Negative [facility] Comment on above: Performed By: #### L IPAS #### [facility] [address] [place] [address] pH (U) 6.0 [pH] Normal 5.0-9.0 [facility] Comment on above: Performed By: #### L IPAS #### [facility] [address] [place] [address] Protein Ql (U) TRACE Abnormal Negative [facility] Comment on above: Performed By: #### L IPAS #### [facility] [address] [place] [address] Specific gravity (U) [Rel density] 1.009 Normal 1.005-1.03 [facility] Comment on above: Performed By: #### L IPAS #### [facility] [address] [place] [address] Urobilinogen Qn (U) 0.2 {Ace'U}/dL Normal < 2.0 [facility] Comment on above: Performed By: #### L IPAS #### [facility] [address] [place] [address] Amylaseon 11-19-2019 Amylase [Catalytic activity/Vol] 57 U/L Normal 22-93 [facility] Comment on above: Performed By: #### F IBR #### [facility] [address] [place] [address] CBC With Platelet and Differ entialon 11-19-2019 Slide Review see below Normal [facility] Comment on above: Result Comment: Slid e review agrees with reported results Performed By: #### C BCWD #### [facility] [address] [place] [address] Basophils (Bld) [#/Vol] 0.2 10*3/uL Normal 0.0-0.2 [facility] Comment on above: Performed By: #### C BCWD #### [facility] [address] [place] [address] Basophils/100 WBC (Bld) 1.0 % Normal [facility] Comment on above: Performed By: #### C BCWD #### [facility] [address] [place] [address] Eosinophils (Bld) [#/Vol] 0.0 10*3/uL Normal 0.0-0.7 [facility] Comment on above: Performed By: #### C BCWD #### [facility] [address] [place] [address] Eosinophils/100 WBC (Bld) 0.1 % Normal [facility] Comment on above: Performed By: #### C BCWD #### [facility] [address] [place] [address] Erythrocyte distribution width (RBC) [Ratio] 13.2 % Normal 11.5-14.5 [facility] Comment on above: Performed By: #### C BCWD #### [facility] [address] [place] [address] Hematocrit (Bld) [Volume fraction] 37.6 % Normal 37.0-47.0 [facility] Comment on above: Performed By: #### C BCWD #### [facility] [address] [place] [address] Hemoglobin (Bld) [Mass/Vol] 13.0 g/dL Normal 12.0-16.0 [facility] Comment on above: Performed By: #### C BCWD #### [facility] [address] [place] [address] Lymphocytes (Bld) [#/Vol] 1.1 10*3/uL Normal 1.0-4.8 [facility] Comment on above: Performed By: #### C BCWD #### [facility] [address] [place] [address] Lymphocytes/100 WBC (Bld) 6.3 % Normal [facility] Comment on above: Performed By: #### C BCWD #### [facility] [address] [place] [address] MCH (RBC) [Entitic mass] 30.8 pg Normal 27.0-31.3 [facility] Comment on above: Performed By: #### C BCWD #### [facility] [address] [place] [address] MCHC (RBC) [Mass/Vol] 34.5 % Normal 33.0-37.0 [facility] Comment on above: Performed By: #### C BCWD #### [facility] [address] [place] [address] MCV (RBC) [Entitic vol] 89.1 fL Normal 82.0-100.0 [facility] Comment on above: Performed By: #### C BCWD #### [facility] [address] [place] [address] Monocytes (Bld) [#/Vol] 0.5 10*3/uL Normal 0.2-0.8 [facility] Comment on above: Performed By: #### C BCWD #### [facility] [address] [place] [address] Monocytes/100 WBC (Bld) 2.7 % Normal [facility] Comment on above: Performed By: #### C BCWD #### [facility] [address] [place] [address] Neutrophils (Bld) [#/Vol] 15.5 10*3/uL Critically high 1.4-6.5 [facility] Comment on above: Performed By: #### C BCWD #### [facility] [address] [place] [address] Neutrophils/100 WBC (Bld) 89.9 % Normal [facility] Comment on above: Performed By: #### C BCWD #### [facility] [address] [place] [address] Platelets (Bld) [#/Vol] 272 10*3/uL Normal 130-400 [facility] Comment on above: Performed By: #### C BCWD #### [facility] [address] [place] [address] RBC (Bld) [#/Vol] 4.22 10*6/uL Normal 4.20-5.40 [facility] Comment on above: Performed By: #### C BCWD #### [facility] [address] [place] [address] WBC (Bld) [#/Vol] 17.2 10*3/uL Critically high 4.8-10.8 [facility] Comment on above: Performed By: #### C BCWD #### [facility] [address] [place] [address] Comprehensive Metabolic Pane l reflex Mgon 11-19-2019 Albumin [Mass/Vol] 3.7 g/dL Normal 3.5-4.6 [facility] Comment on above: Performed By: #### L IPAS #### [facility] [address] [place] [address] ALP [Catalytic activity/Vol] 133 U/L Critically high 40-130 [facility] Comment on above: Result Comment: Spec imen hemolysis has exceeded the interference as defined by Mik. Value may be falsely decreased. Suggest recollection if clinically indicated. Performed By: #### L IPAS #### [facility] [address] [place] [address] ALT [Catalytic activity/Vol] 18 U/L Normal 0-33 [facility] Comment on above: Result Comment: Spec imen hemolysis has exceeded the interference as defined by Mik. Result may be affected. Suggest recollection if clinically indicated. Performed By: #### L IPAS #### [facility] [address] [place] [address] Anion gap [Moles/Vol] 19 mmol/L Critically high 9-15 [facility] Comment on above: Performed By: #### L IPAS #### [facility] [address] [place] [address] AST [Catalytic activity/Vol] 31 U/L Normal 0-35 [facility] Comment on above: Result Comment: Spec imen hemolysis has exceeded the interference as defined by Mik. Value may be falsely increased. Suggest recollection if clinically indicated. Performed By: #### L IPAS #### [facility] [address] [place] [address] Bilirubin [Mass/Vol] 0.3 mg/dL Normal 0.2-0.7 [facility] Comment on above: Performed By: #### L IPAS #### [facility] [address] [place] [address] Calcium [Mass/Vol] 9.0 mg/dL Normal 8.5-9.9 [facility] Comment on above: Performed By: #### L IPAS #### [facility] [address] [place] [address] Chloride [Moles/Vol] 96 mmol/L Normal 95-107 [facility] Comment on above: Performed By: #### L IPAS #### [facility] [address] [place] [address] CO2 [Moles/Vol] 18 mmol/L Low 20-31 [facility] Comment on above: Performed By: #### L IPAS #### [facility] [address] [place] [address] Creatinine [Mass/Vol] 0.39 mg/dL Low 0.50-0.90 [facility] Comment on above: Performed By: #### L IPAS #### [facility] [address] [place] [address] GFR/1.73 sq M predicted among blacks MDRD (S/P/Bld) [Vol rate/Area] mL/min/{1.73_m2} Normal >60 [facility] Comment on above: Result Comment: >60 mL/min/1.73m2 EGFR, calc. for ages 18 and older using the MDRD formula (not corrected for weight), is valid for stable renal function. Performed By: #### L IPAS #### [facility] [address] [place] [address] GFR/1.73 sq M.predicted MDRD (S/P/Bld) [Vol rate/Area] mL/min/{1.73_m2} Normal >60 [facility] Comment on above: Result Comment: >60 mL/min/1.73m2 EGFR, calc. for ages 18 and older using the MDRD formula (not corrected for weight), is valid for stable renal function. Performed By: #### L IPAS #### [facility] [address] [place] [address] Globulin (S) [Mass/Vol] 3.2 g/dL Normal 2.3-3.5 [facility] Comment on above: Performed By: #### L IPAS #### [facility] [address] [place] [address] Glucose [Mass/Vol] 196 mg/dL Critically high 70-99 [facility] Comment on above: Performed By: #### L IPAS #### [facility] [address] [place] [address] Potassium reflex Mg 4.1 mEq/L Normal 3.4-4.9 [facility] Comment on above: Performed By: #### L IPAS #### [facility] [address] [place] [address] Protein [Mass/Vol] 6.9 g/dL Normal 6.3-8.0 [facility] Comment on above: Performed By: #### L IPAS #### [facility] [address] [place] [address] Sodium [Moles/Vol] 133 mmol/L Low 135-144 [facility] Comment on above: Performed By: #### L IPAS #### [facility] [address] [place] [address] Urea nitrogen [Mass/Vol] 6 mg/dL Normal 6-20 [facility] Comment on above: Performed By: #### L IPAS #### [facility] [address] [place] [address] D-Dimer Quanton 11-19-2019 D-Dimer Quant 0.84 mg/L FEU Critically high 0.00-0.50 [facility] Comment on above: Order Comment: CALL [facility] tel. [phone],dimer results called to and read back by Christine neal, 11/19/2019 19:59,by MAGGIE Performed By: #### F IBR #### [facility] [address] [place] [address] Fibrinogenon 11-19-2019 Fibrinogen 615.0 mg/dL Critically high 235.0-507. [facility] Comment on above: Performed By: #### F IBR #### [facility] [address] [place] [address] Lactate Dehydrogenaseon 10-24 LDH [Catalytic activity/Vol] 429 U/L Critically high 135-214 [facility] Comment on above: Result Comment: Spec imen hemolysis has exceeded the interference as defined by Mik. Value may be falsely increased. Suggest recollection if clinically indicated. Performed By: #### L DH #### [facility] [address] [place] [address] Lipaseon 11-19-2019 Lipase [Catalytic activity/Vol] 35 U/L Normal 12-95 [facility] Comment on above: Performed By: #### L IPAS #### [facility] [address] [place] [address] Prothrombin Timeon 0 INR Coag (PPP) [Relative time] 0.9 {INR} Normal [facility] Comment on above: Performed By: #### F IBR #### [facility] [address] [facility] [address] [facility] [place] [address] PT Coag (PPP) [Time] 12.1 s Low 12.3-14.9 [facility] Comment on above: Performed By: #### F IBR #### [facility] [address] [place] [address] Type and Screen Capture 3 sc rn cellon 11-19-2019 Type and Screen Capture 3 scrn cell PATIENT: JAY Malone LOC: [facility],0320,[id number] BILL# : [id number] : 1985 SEX: F ORDERED BY: KRISTIAN BIRD ORDERED : 11/19/2019 18:24 COLLECTED: 11/19/2019 18:30 ORDER : [id number] RECEIVED : 11/19/2019 18:42 TEST NAME RESULT UNITS RANGES ABN FL ST ABORH Capture A POS F Antibody 3 Cell Scrn Captu NEG F @11/19/19 20:52 by MAGGIE: @11/20/19 09:22 by GILA: Repeated absc with a different lot of RS-3 strips- confirmed absc negative. LMB Normal [facility] Comment on above: Performed By: #### L IPAS #### [facility] [address] [place] [address] UR Drugs of Abuse Panelon Drug Screen Comment see below Normal [facility] Comment on above: Result Comment: This method is a screening test to detect only these drug classes as part of a medical workup. Confirmatory testing by another method should be ordered if clinically indicated. Performed By: #### F IBR #### [facility] [address] [place] [address] UR Amphetamines Screen Negative Normal Negative < [facility] Comment on above: Performed By: #### F IBR #### [facility] [address] [place] [address] UR Barbiturates Screen Negative Normal Negative < [facility] Comment on above: Performed By: #### F IBR #### [facility] [address] [place] [address] UR Benzo Screen Negative Normal Negative < [facility] Comment on above: Performed By: #### F IBR #### [facility] [address] [place] [address] UR Cannabinoids Screen Negative Normal Negative < [facility] Comment on above: Performed By: #### F IBR #### [facility] [address] [place] [address] UR Cocaine Screen Negative Normal Negative < [facility] Comment on above: Performed By: #### F IBR #### [facility] [address] [place] [address] UR Methadone Screen Negative Normal Negative < [facility] Comment on above: Result Comment: Effe ctive: 05/03/19 New Test for Qualitative Drug Screen. Performed By: #### F IBR #### [facility] [address] [place] [address] UR Opiates Screen Negative Normal Negative < [facility] Comment on above: Performed By: #### F IBR #### [facility] [address] [place] [address] UR Oxycodone Screen Negative Normal Negative < [facility] Comment on above: Result Comment: Effe ctive: 05/03/19 New Test for Qualitative Drug Screen. Performed By: #### F IBR #### [facility] [address] [place] [address] UR PCP Screen Negative Normal Negative < [facility] Comment on above: Performed By: #### F IBR #### [facility] [address] [place] [address] UR Propoxyphene Screen Negative Normal Negative < [facility] Comment on above: Result Comment: Effe ctive: 05/03/19 New Test for Qualitative Drug Screen. Performed By: #### F IBR #### [facility] [address] [place] [address] US ABDOMEN LIMITEDon 020 US ABDOMEN LIMITED [...] Luis Oviedo MD 11/19/19 Final result Normal [facility] US BIOPHYS PROFILE W N ON [...] Luis Oviedo MD 11/19/19 Final result Normal [facility] Urinalysis, reflex to micros copicon 11-19-2019 Bilirubin Ql (U) Negative Normal Negative [facility] Comment on above: Performed By: #### F IBR #### [facility] [address] [place] [address] Clarity (U) Clear Normal Clear [facility] Comment on above: Performed By: #### F IBR #### [facility] [address] [facility] [address] Color (U) Yellow Normal Straw/[place] [facility] Comment on above: Performed By: #### F IBR #### [facility] [address] [place] [address] Glucose Ql (U) >=1000 Abnormal Negative [facility] Comment on above: Performed By: #### F IBR #### [facility] [address] [place] [address] Hemoglobin Ql (U) TRACE Abnormal Negative [facility] Comment on above: Performed By: #### F IBR #### [facility] [address] [place] [address] Ketones Ql (U) >=80 Abnormal Negative [facility] Comment on above: Performed By: #### F IBR #### [facility] [address] [place] [address] Leukocyte esterase Test strip Ql (U) Negative Normal Negative [facility] Comment on above: Performed By: #### F IBR #### [facility] [address] [place] [address] Nitrite Ql (U) Negative Normal Negative [facility] Comment on above: Performed By: #### F IBR #### [facility] [address] [place] [address] pH (U) 5.0 [pH] Normal 5.0-9.0 [facility] Comment on above: Performed By: #### F IBR #### [facility] [address] [place] [address] Protein Ql (U) 30 mg/dL Abnormal Negative [facility] Comment on above: Performed By: #### F IBR #### [facility] [address] [place] [address] Specific gravity (U) [Rel density] 1.023 Normal 1.005-1.03 [facility] Comment on above: Performed By: #### F IBR #### [facility] [address] [place] [address] Urobilinogen Qn (U) 0.2 {Ace'U}/dL Normal < 2.0 [facility] Comment on above: Performed By: #### F IBR #### [facility] [address] [place] [address] Urine Microscopicon 11-19-19 20 Bacteria LM.HPF (Urine sed) [#/Area] Negative Normal Negative [facility] Comment on above: Performed By: #### U MAKENNA #### [facility] [address] [place] [address] RBC (U) [#/Vol] 6-10 Abnormal 0-5 [facility] Comment on above: Performed By: #### U MAKENNA #### [facility] [address] [place] [address] Urine Epithelial Cells Auto 6-10 Normal 0-5 [facility] Comment on above: Performed By: #### U MAKENNA #### [facility] [address] [place] [address] Urine Hyaline Casts Auto 1-3 Normal 0-5 [facility] Comment on above: Performed By: #### U MAKENNA #### [facility] [address] [place] [address] Urine WBC Auto 0-2 Normal 0-5 [facility] Comment on above: Performed By: #### U MAKENNA #### [facility] [address] [place] [address] Amylaseon 08-31-2019 Amylase [Catalytic activity/Vol] 64 U/L Normal 22-93 [facility] Comment on above: Performed By: #### F IBR #### [facility] [address] [place] [address] CBC With Platelet and Differ entialon 08-31-2019 Platelet Slide Review Normal Normal [facility] Comment on above: Performed By: #### F IBR #### [facility] [address] [place] [address] Basophils (Bld) [#/Vol] 0.0 10*3/uL Normal 0.0-0.2 [facility] Comment on above: Performed By: #### F IBR #### [facility] [address] [place] [address] Basophils/100 WBC (Bld) 0.3 % Normal [facility] Comment on above: Performed By: #### F IBR #### [facility] [address] [place] [address] Eosinophils (Bld) [#/Vol] 0.0 10*3/uL Normal 0.0-0.7 [facility] Comment on above: Performed By: #### F IBR #### [facility] [address] [place] [address] Eosinophils/100 WBC (Bld) 0.0 % Normal [facility] Comment on above: Performed By: #### F IBR #### [facility] [address] [place] [address] Erythrocyte distribution width (RBC) [Ratio] 13.2 % Normal 11.5-14.5 [facility] Comment on above: Performed By: #### F IBR #### [facility] [address] [place] [address] Hematocrit (Bld) [Volume fraction] 39.2 % Normal 37.0-47.0 [facility] Comment on above: Performed By: #### F IBR #### [facility] [address] [place] [address] Hemoglobin (Bld) [Mass/Vol] 13.5 g/dL Normal 12.0-16.0 [facility] Comment on above: Performed By: #### F IBR #### [facility] [address] [place] [address] Lymphocytes (Bld) [#/Vol] 1.3 10*3/uL Normal 1.0-4.8 [facility] Comment on above: Performed By: #### F IBR #### [facility] [address] [place] [address] Lymphocytes/100 WBC (Bld) 7.1 % Normal [facility] Comment on above: Performed By: #### F IBR #### [facility] [address] [place] [address] MCH (RBC) [Entitic mass] 31.5 pg Critically high 27.0-31.3 [facility] Comment on above: Performed By: #### F IBR #### [facility] [address] [place] [address] MCHC (RBC) [Mass/Vol] 34.5 % Normal 33.0-37.0 [facility] Comment on above: Performed By: #### F IBR #### [facility] [address] [place] [address] MCV (RBC) [Entitic vol] 91.3 fL Normal 82.0-100.0 [facility] Comment on above: Performed By: #### F IBR #### [facility] [address] [place] [address] Monocytes (Bld) [#/Vol] 0.6 10*3/uL Normal 0.2-0.8 [facility] Comment on above: Performed By: #### F IBR #### [facility] [address] [place] [address] Monocytes/100 WBC (Bld) 3.1 % Normal [facility] Comment on above: Performed By: #### F IBR #### [facility] [address] [place] [address] Neutrophils (Bld) [#/Vol] 16.2 10*3/uL Critically high 1.4-6.5 [facility] Comment on above: Performed By: #### F IBR #### [facility] [address] [place] [address] Neutrophils/100 WBC (Bld) 89.5 % Normal [facility] Comment on above: Performed By: #### F IBR #### [facility] [address] [place] [address] Platelets (Bld) [#/Vol] 305 10*3/uL Normal 130-400 [facility] Comment on above: Performed By: #### F IBR #### [facility] [address] [place] [address] RBC (Bld) [#/Vol] 4.29 10*6/uL Normal 4.20-5.40 [facility] Comment on above: Performed By: #### F IBR #### [facility] [address] [place] [address] WBC (Bld) [#/Vol] 18.1 10*3/uL Critically high 4.8-10.8 [facility] Comment on above: Performed By: #### F IBR #### [facility] [address] [place] [address] Comprehensive Metabolic Pane samina 08-31-2019 Albumin [Mass/Vol] 3.9 g/dL Normal 3.5-4.6 [facility] Comment on above: Performed By: #### C MP #### [facility] [address] [place] [address] ALP [Catalytic activity/Vol] 64 U/L Normal 40-130 [facility] Comment on above: Performed By: #### C MP #### [facility] [address] [place] [address] ALT [Catalytic activity/Vol] 8 U/L Normal 0-33 [facility] Comment on above: Performed By: #### C MP #### [facility] [address] [place] [address] Anion gap [Moles/Vol] 18 mmol/L Critically high 9-15 [facility] Comment on above: Performed By: #### C MP #### [facility] [address] [place] [address] AST [Catalytic activity/Vol] 11 U/L Normal 0-35 [facility] Comment on above: Performed By: #### C MP #### [facility] [address] [place] [address] Bilirubin [Mass/Vol] mg/dL Normal 0.2-0.7 [facility] Comment on above: Performed By: #### C MP #### [facility] [address] [place] [address] Calcium [Mass/Vol] 8.8 mg/dL Normal 8.5-9.9 [facility] Comment on above: Performed By: #### C MP #### [facility] [address] [place] [address] Chloride [Moles/Vol] 99 mmol/L Normal 95-107 [facility] Comment on above: Performed By: #### C MP #### [facility] [address] [place] [address] CO2 [Moles/Vol] 21 mmol/L Normal 20-31 [facility] Comment on above: Performed By: #### C MP #### [facility] [address] [place] [address] Creatinine [Mass/Vol] 0.52 mg/dL Normal 0.50-0.90 [facility] Comment on above: Performed By: #### C MP #### [facility] [address] [place] [address] GFR/1.73 sq M predicted among blacks MDRD (S/P/Bld) [Vol rate/Area] mL/min/{1.73_m2} Normal >60 [facility] Comment on above: Result Comment: >60 mL/min/1.73m2 EGFR, calc. for ages 18 and older using the MDRD formula (not corrected for weight), is valid for stable renal function. Performed By: #### C MP #### [facility] [address] [place] [address] GFR/1.73 sq M.predicted MDRD (S/P/Bld) [Vol rate/Area] mL/min/{1.73_m2} Normal >60 [facility] Comment on above: Result Comment: >60 mL/min/1.73m2 EGFR, calc. for ages 18 and older using the MDRD formula (not corrected for weight), is valid for stable renal function. Performed By: #### C MP #### [facility] [address] [place] [address] Globulin (S) [Mass/Vol] 2.9 g/dL Normal 2.3-3.5 [facility] Comment on above: Performed By: #### C MP #### [facility] [address] [place] [address] Glucose [Mass/Vol] 162 mg/dL Critically high 70-99 [facility] Comment on above: Performed By: #### C MP #### [facility] [address] [place] [address] Potassium [Moles/Vol] 3.4 mmol/L Normal 3.4-4.9 [facility] Comment on above: Performed By: #### C MP #### [facility] [address] [place] [address] Protein [Mass/Vol] 6.8 g/dL Normal 6.3-8.0 [facility] Comment on above: Performed By: #### C MP #### [facility] [address] [place] [address] Sodium [Moles/Vol] 138 mmol/L Normal 135-144 [facility] Comment on above: Performed By: #### C MP #### [facility] [address] [place] [address] Urea nitrogen [Mass/Vol] 7 mg/dL Normal 6-20 [facility] Comment on above: Performed By: #### C MP #### [facility] [address] [place] [address] Lipaseon 08-31-2019 Lipase [Catalytic activity/Vol] 21 U/L Normal 12-95 [facility] Comment on above: Performed By: #### F IBR #### [facility] [address] [place] [address] US ABDOMEN LIMITEDon 020 US ABDOMEN LIMITED [...] Jesusita Turner MD 08/31/19 Final result Normal [facility] CBC With Platelet and Differ entialon 08-23-2019 Basophils (Bld) [#/Vol] 0.1 10*3/uL Normal 0.0-0.2 [facility] Comment on above: Performed By: #### L DH #### [facility] [address] [place] [address] Basophils/100 WBC (Bld) 1.1 % Normal [facility] Comment on above: Performed By: #### L DH #### [facility] [address] [place] [address] Eosinophils (Bld) [#/Vol] 0.1 10*3/uL Normal 0.0-0.7 [facility] Comment on above: Performed By: #### L DH #### [facility] [address] [place] [address] Eosinophils/100 WBC (Bld) 0.5 % Normal [facility] Comment on above: Performed By: #### L DH #### [facility] [address] [place] [address] Erythrocyte distribution width (RBC) [Ratio] 12.7 % Normal 11.5-14.5 [facility] Comment on above: Performed By: #### L DH #### [facility] [address] [place] [address] Hematocrit (Bld) [Volume fraction] 36.1 % Low 37.0-47.0 [facility] Comment on above: Performed By: #### L DH #### [facility] [address] [place] [address] Hemoglobin (Bld) [Mass/Vol] 12.4 g/dL Normal 12.0-16.0 [facility] Comment on above: Performed By: #### L DH #### [facility] [address] [place] [address] Lymphocytes (Bld) [#/Vol] 2.2 10*3/uL Normal 1.0-4.8 [facility] Comment on above: Performed By: #### L DH #### [facility] [address] [place] [address] Lymphocytes/100 WBC (Bld) 21.2 % Normal [facility] Comment on above: Performed By: #### L DH #### [facility] [address] [place] [address] MCH (RBC) [Entitic mass] 30.9 pg Normal 27.0-31.3 [facility] Comment on above: Performed By: #### L DH #### [facility] [address] [place] [address] MCHC (RBC) [Mass/Vol] 34.4 % Normal 33.0-37.0 [facility] Comment on above: Performed By: #### L DH #### [facility] [address] [place] [address] MCV (RBC) [Entitic vol] 89.8 fL Normal 82.0-100.0 M [facility] Comment on above: Performed By: #### L DH #### [facility] [address] [place] [address] Monocytes (Bld) [#/Vol] 0.7 10*3/uL Normal 0.2-0.8 [facility] Comment on above: Performed By: #### L DH #### [facility] [address] [place] [address] Monocytes/100 WBC (Bld) 6.7 % Normal [facility] Comment on above: Performed By: #### L DH #### [facility] [address] [place] [address] Neutrophils (Bld) [#/Vol] 7.4 10*3/uL Critically high 1.4-6.5 [facility] Comment on above: Performed By: #### L DH #### [facility] [address] [place] [address] Neutrophils/100 WBC (Bld) 70.5 % Normal [facility] Comment on above: Performed By: #### L DH #### [facility] [address] [place] [address] Platelets (Bld) [#/Vol] 304 10*3/uL Normal 130-400 [facility] Comment on above: Performed By: #### L DH #### [facility] [address] [place] [address] RBC (Bld) [#/Vol] 4.03 10*6/uL Low 4.20-5.40 [facility] Comment on above: Performed By: #### L DH #### [facility] [address] [place] [address] WBC (Bld) [#/Vol] 10.5 10*3/uL Normal 4.8-10.8 [facility] Comment on above: Performed By: #### L DH #### [facility] [address] [place] [address] Comprehensive Metabolic Pane samina 08-23-2019 Albumin [Mass/Vol] 3.7 g/dL Normal 3.5-4.6 [facility] Comment on above: Performed By: #### L DH #### [facility] [address] [place] [address] ALP [Catalytic activity/Vol] 53 U/L Normal 40-130 [facility] Comment on above: Performed By: #### L DH #### [facility] [address] [place] [address] ALT [Catalytic activity/Vol] 8 U/L Normal 0-33 [facility] Comment on above: Performed By: #### L DH #### [facility] [address] [place] [address] Anion gap [Moles/Vol] 12 mmol/L Normal 9-15 [facility] Comment on above: Performed By: #### L DH #### [facility] [address] [place] [address] AST [Catalytic activity/Vol] 9 U/L Normal 0-35 [facility] Comment on above: Performed By: #### L DH #### [facility] [address] [place] [address] Bilirubin [Mass/Vol] 0.3 mg/dL Normal 0.2-0.7 [facility] Comment on above: Performed By: #### L DH #### [facility] [address] [place] [address] Calcium [Mass/Vol] 9.0 mg/dL Normal 8.5-9.9 [facility] Comment on above: Performed By: #### L DH #### [facility] [address] [place] [address] Chloride [Moles/Vol] 103 mmol/L Normal 95-107 [facility] Comment on above: Performed By: #### L DH #### [facility] [address] [place] [address] CO2 [Moles/Vol] 22 mmol/L Normal 20-31 [facility] Comment on above: Performed By: #### L DH #### [facility] [address] [place] [address] Creatinine [Mass/Vol] 0.39 mg/dL Low 0.50-0.90 [facility] Comment on above: Performed By: #### L DH #### [facility] [address] [place] [address] GFR/1.73 sq M predicted among blacks MDRD (S/P/Bld) [Vol rate/Area] mL/min/{1.73_m2} Normal >60 [facility] Comment on above: Result Comment: >60 mL/min/1.73m2 EGFR, calc. for ages 18 and older using the MDRD formula (not corrected for weight), is valid for stable renal function. Performed By: #### L DH #### [facility] [address] [place] [address] GFR/1.73 sq M.predicted MDRD (S/P/Bld) [Vol rate/Area] mL/min/{1.73_m2} Normal >60 [facility] Comment on above: Result Comment: >60 mL/min/1.73m2 EGFR, calc. for ages 18 and older using the MDRD formula (not corrected for weight), is valid for stable renal function. Performed By: #### L #### [facility] [address] [place] [address] Globulin (S) [Mass/Vol] 2.7 g/dL Normal 2.3-3.5 [facility] Comment on above: Performed By: #### L DH #### [facility] [address] [place] [address] Glucose [Mass/Vol] 90 mg/dL Normal 70-99 [facility] Comment on above: Performed By: #### L DH #### [facility] [address] [place] [address] Potassium [Moles/Vol] 3.7 mmol/L Normal 3.4-4.9 [facility] Comment on above: Performed By: #### L DH #### [facility] [address] [place] [address] Protein [Mass/Vol] 6.4 g/dL Normal 6.3-8.0 [facility] Comment on above: Performed By: #### L DH #### [facility] [address] [place] [address] Sodium [Moles/Vol] 137 mmol/L Normal 135-144 [facility] Comment on above: Performed By: #### L DH #### [facility] [address] [place] [address] Urea nitrogen [Mass/Vol] 5 mg/dL Low 6-20 [facility] Comment on above: Performed By: #### L DH #### [facility] [address] [place] [address] Culture, Urineon 08-23-2019 Culture, Urine ORDERED BY: UMESH BOLES SOURCE: Urine Clean Catch COLLECTED: 08/23/19 17:15 ANTIBIOTICS AT IDANIA.: RECEIVED : 08/23/19 18:14 Culture, Urine FINAL 08/25/19 08:20 No growth 24 hours Normal [facility] Comment on above: Performed By: #### F IBR #### [facility] [address] [place] [address] Influenza A and Bon 08-23-20 19 Influenza A by PCR Negative Normal [facility] Comment on above: Result Comment: Effe ctive 04/15/19 Please note methodology and/or reference ranges have changed. Performed By: #### L IPAS #### [facility] [address] [place] [address] Influenza B by PCR Negative Normal [facility] Comment on above: Result Comment: Effe ctive 04/15/19 Please note methodology and/or reference ranges have changed. Performed By: #### L IPAS #### [facility] [address] [place] [address] Magnesiumon 08-23-2019 Magnesium [Mass/Vol] 1.6 mg/dL Low 1.7-2.4 [facility] Comment on above: Performed By: #### M G #### [facility] [address] [place] [address] Urinalysis, reflex to cultur margarita 08-23-2019 Bilirubin Ql (U) Negative Normal Negative [facility] Comment on above: Performed By: #### U AR #### [facility] [address] [place] [address] Clarity (U) TURBID Abnormal Clear [facility] Comment on above: Performed By: #### U AR #### [facility] [address] [place] [address] Color (U) DARK YELLOW Abnormal Straw/[place] [facility] Comment on above: Performed By: #### U AR #### [facility] [address] [place] [address] Glucose Ql (U) Negative Normal Negative [facility] Comment on above: Performed By: #### U AR #### [facility] [address] [place] [address] Hemoglobin Ql (U) Negative Normal Negative [facility] Comment on above: Performed By: #### U AR #### [facility] [address] [place] [address] Ketones Ql (U) 15 mg/dL Abnormal Negative [facility] Comment on above: Performed By: #### U AR #### [facility] [address] [place] [address] Leukocyte esterase Test strip Ql (U) SMALL Abnormal Negative [facility] Comment on above: Performed By: #### U AR #### [facility] [address] [place] [address] Nitrite Ql (U) Negative Normal Negative [facility] Comment on above: Performed By: #### U AR #### [facility] [address] [place] [address] pH (U) 5.5 [pH] Normal 5.0-9.0 [facility] Comment on above: Performed By: #### U AR #### [facility] [address] [place] [address] Protein Ql (U) TRACE Abnormal Negative [facility] Comment on above: Performed By: #### U AR #### [facility] [address] [place] [address] Specific gravity (U) [Rel density] 1.020 Normal 1.005-1.03 [facility] Comment on above: Performed By: #### U AR #### [facility] [address] [place] [address] Urine Reflexed to Culture YES Normal [facility] Comment on above: Performed By: #### U AR #### [facility] [address] [place] [address] Urobilinogen Qn (U) 0.2 {Ace'U}/dL Normal < 2.0 [facility] Comment on above: Performed By: #### U AR #### [facility] [address] [place] [address] Urine Microscopicon 12-30-20 19 Bacteria LM.HPF (Urine sed) [#/Area] MODERATE Abnormal [facility] Comment on above: Performed By: #### U MAKENNA #### [facility] [address] [place] [address] RBC (U) [#/Vol] 3-5 Abnormal 0-5 [facility] Comment on above: Performed By: #### U MAKENNA #### [facility] [address] [place] [address] Urine Epithelial Cells Auto >100 Critically high 0-5 [facility] Comment on above: Performed By: #### U MAKENNA #### [facility] [address] [place] [address] Urine Hyaline Casts Auto 10-20 Normal 0-5 [facility] Comment on above: Performed By: #### U MAKENNA #### [facility] [address] [place] [address] Urine WBC Auto 10-20 Abnormal 0-5 [facility] Comment on above: Performed By: #### U MAKENNA #### [facility] [address] [place] [address] Provider Note - ED v2on 12-2 Provider [...] Description:CARPAL TUNNEL SURGERY RIGHT Description:D & C UNIVERSITY PRESIDENT: Is : yes(1) Is : no(1) RESULTS/VITAL SIGNS VITAL SIGNS: T PRBP SpO2O2(LPM) %FiO2 Method 20-Aug-2019 14:10:[id number]/6 9 room air, no respiratory support MEDICAL [...] From Triage - ED 20-Aug-2019 14:10 Normal [facility] Risk Screen - Adult Emergenc yon [...] instruction; written material Cultural Considerationsnone Developmental Considerationsnone Jehovah'S Witness Considerationsnone Learning Assessment (Other Learner): Learning Assessment (Other Learner): Other learner availableno Pressure Injury/TB/Substance: Pressure Injury: Do you have a coughyes... Has your cough lasted longer than 2 weeksno Admission Risk Screen: Significant IndicatorsComplete CAGE: CAGE: Is this an injured patient at a Trauma Center ([facility]/[place]/[facility]/[place]): no Electronic Signatures: Amna Parekh (STAFF N) (Signed 20-Aug-2019 14:16) Authored: Preferred Language, Advanced Directives, Family Violence Adult, Learning Assessment (Patient), Learning Assessment (Other Learner), Pressure Injury/TB/Substance, CAGE Last Updated: 20-Aug-2019 14:16 by Amna Parekh (STAFF N) Normal [facility] Triage - EDon 08-20-2019 Triage - [...] BMI (kg/m2): 30.009 Calculated BSA (m2) 1.94 Childs Coma Scale: Best Eye Response: (E4) spontaneous Best Motor Response: (M6) obeys commands Best Verbal Response: (V5) oriented Childs Score: 15 Cough lasting greater than 3 [...] immediate family member Language: Spoken Language Preferred: [place] Reading Language Preferred: [place] Radiation Protection Specialist Requested: no park interpreter was requested PRIMARY ASSESSMENT MARY PANIAGUA's primary [...] 14:14 by Amna Parekh (STAFF N) Normal [facility] Vital Signs Date Time Vital Sign [...] Date Encounter Type Care Provider Facility Start: 04-22-2024 ambulatory Hugo Nixon acility:[facility] Start: 03-16-2024 End: 03-16-2024 ambulatory [facility] Start: 02-24-2024 End: 02-24-2024 ambulatory [facility] Start: 02-24-2024 Encounter for gynecological examination (general) (routine) without abnormal findings [facility] Start: 02-24-2024 End: 02-24-2024 ambulatory [facility] Start: 02-24-2024 Encounter for gynecological examination (general) (routine) without abnormal findings [facility] Start: 01-15-2024 End: 01-15-2024 ambulatory [facility] Start: 12-22-2023 ambulatory [facility] Start: 12-15-2023 End: 12-16-2023 ambulatory [facility] Start: 12-15-2023 End: 12-15-2023 ambulatory [facility] Start: 12-02-2023 End: 12-03-2023 ambulatory [facility] Start: 12-02-2023 End: 12-02-2023 ambulatory [facility] Start: 10-10-2023 End: 10-11-2023 ambulatory [facility] Start: 10-09-2023 End: 10-10-2023 ambulatory [facility] Start: 11-13-2022 End: 11-14-2022 ambulatory Archana Garcia Facility:[facility] Start: 06-05-2022 Office outpatient ne w 30 minutes Moe Garner MD Work Phone: [facility] Work Phone: Start: 06-05-2022 ambulatory Ms. 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 Start: 08-31-2019 End: 08-31-2019 Patient encounter procedure MANNIE Major LEVY [facility] Start: 08-23-2019 End: 08-23-2019 Emergency department patient visit [facility] Moriah LEVY [facility] Procedures Date Procedure Procedure Detail Performing Clinician Start: 12-15-2023 Follow-up visit Follow-up ARCHANA GARCIA Start: 11-20-2019 Antibody screen Comment on above: Performed By: #### C BCDIF, CMP #### [place] [address] Start: 11-20-2019 Cul prsmptv pthgnc o rganism [...] Immunization Date Immunization Notes Care Provider Fa [facility] 02-22-2021 COVID-19 mRNA,WVD715 b2 (Pfizer) CIVIL GEOTECHNICAL ENGINEERPranav Levy Work Phone: [facility] Payers Date Payer Category Payer Self-pay [id number] 2022 Unknown [id number] 2018 Unknown [id number] 1984 Unknown [id number] 2.16.8 40.1.076881.3.579.2.182 1984 Unknown [id number] 2.16.8 40.1.157413.3.579.2.182 1984 Unknown [id number] 2.16.8 40.1.493014.3.579.2.182 1984 Unknown [id number] 2.16.8 40.1.027176.3.579.2.182 1984 Unknown [id number] 2.16.8 40.1.401785.3.579.2.182 1984 Unknown [id number] 2.16. 840.1.645079.3.579.2.356 1984 Unknown [id number] 2.16.8 40.1.138347.3.579.2.718 1984 Unknown [id number] 2.16.8 40.1.110074.3.579.2.173 1984 Unknown [id number] 2.16.8 40.1.894392.3.579.2.173 1984 Unknown [id number] 2.16.8 40.1.037659.3.579.2.1286 1984 Unknown [id number] 2.16.8 40.1.995590.3.579.2.1286 1984 Unknown [id number] 2.16.8 40.1.130786.3.579.2.1286 1984 Unknown [id number] 2.16.8 40.1.987867.3.579.2.1286 1984 Unknown [id number] 2.16.8 40.1.794938.3.579.2.983 1984 Unknown [id number] 2.16.8 40.1.977335.3.579.2.1286 1984 Unknown [id number] 2.16.8 40.1.588399.3.579.2.1286 1984 Unknown [id number] 2.16.8 40.1.069163.3.579.2.1286 1984 Unknown [id number] 2.16.8 40.1.070227.3.579.2.1286 1984 Unknown [id number] 2.16.8 40.1.674816.3.579.2.6 1984 Unknown [id number] 2.16.8 40.1.016064.3.579.2.1286 Unknown [employer] Unknown [id number] 2.16.8 40.1.101046.3.579.2.531 Social History Date Type Detail Facility Tobacco smoking stat [facility] Unknown if ever smoked [facility] Start: 1985 Sex Assigned At Female F [facility] Current smoker Current smoker [facility] [...] moderate.This note was created using speech recognition air vice marshal software/or [employer] air vice marshal services. Despite proofreading, several typographical errors might [...] stapedectomy for otosclerosis is an elective procedure. [facility] n Work Phone: Evaluation note Note Date & Type Note Facility Evaluation note No assessment information [facility] Summary Purpose Family History No Family History [...] 1 1:00pm Hospital Course Note HNO ID: [id number] Author: Pranav Gipson (ResChana Esquivel MD Service: [...] (more content not included)... Note HNO ID: [id number] Author: Brandan narvaez (Res) MD [place] Service: Obstetrics Author Type: Resident Type: Procedures Filed: 11/20/2019 7:01 PM Note Text: OB BEDSIDE PROCEDURE NOTE [facility] PROCEDURE DATE: November 20, 2019 PROCEDURE START TIME: 6:59 PM PRIMARY PROCEDURALIST: John Lovett MD YOKE PRESSER(S): None Informed Consent: Informed Consent obtained and on the chart [place] Protocol/Safety Checklist: Sign in Communication: Completed Time [...] (more content not included)... Note HNO ID: [id number] Author: Brandan West) MAXIMO Cline.NATIONAL SALES CONSULTANT Service: ? 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 Procedure Findings Note HNO ID: [id number] Author: Brandan narvaez (Rhoda Lovett MD Service: Obstetrics Author Type: Resident Type: Procedures Filed: 11/20/2019 7:01 PM Note Text: OB BEDSIDE PROCEDURE NOTE [facility] PROCEDURE DATE: November 20, 2019 PROCEDURE START TIME: 6:59 PM PRIMARY PROCEDURALIST: John Lovett MD YOKE PRESSER(S): None Informed Consent: Informed Consent obtained and on the chart [place] Protocol/Safety Checklist: Sign in Communication: Completed Time [...] (more content not included)... Note HNO ID: [id number] Author: Brandan Cline APRN.NATIONAL SALES CONSULTANT Service: ? 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 MarlynNATIONAL SALES CONSULTANT Performed by: CARLOS Preparation Sterility Preparation: hand [...] section and content) DATE CREATED AUTHOR 08/20/2019 [facility] DATE CREATED AUTHOR AUTHOR'S ORGANIZ ATION 11/23/2019 [facility] DATE CREATED AUTHOR AUTHOR'S ORGANIZ ATION 08/04/2020 [facility] DATE CREATED AUTHOR AUTHOR'S ORGANIZ ATION 09/01/2020 [facility] DATE CREATED AUTHOR AUTHOR'S ORGANIZ ATION 04/26/2021 [facility] DATE CREATED AUTHOR AUTHOR'S ORGANIZ ATION 06/05/2022 [facility] DATE CREATED AUTHOR AUTHOR'S ORGANIZ ATION 06/05/2022 [facility] DATE CREATED AUTHOR AUTHOR'S ORGANIZ ATION 11/14/2022 [facility] DATE CREATED AUTHOR AUTHOR'S ORGANIZ ATION [facility] DATE CREATED AUTHOR AUTHOR'S ORGANIZ ATION 12/16/2023 [facility] DATE CREATED AUTHOR AUTHOR'S ORGANIZ ATION 12/16/2023 [facility] DATE CREATED AUTHOR AUTHOR'S ORGANIZ ATION 12/23/2023 [facility] DATE CREATED AUTHOR AUTHOR'S ORGANIZ ATION 03/11/2024 [facility] DATE CREATED AUTHOR AUTHOR'S ORGANIZ ATION 03/19/2024 [facility] DATE CREATED AUTHOR AUTHOR'S ORGANIZ ATION 04/28/2024 [facility] Goals (unrecognized section and content) [...] BE BASED ON THE PRIMARY CLINICAL RECORDS. writewith [facility]. provides no warranty or guarantee of the accuracy or completeness of information in this document.
== END 2024-04-25 14:04 | disposition home or self-care (01) ==
LOC: ER 18:36 → MS 04-25 09:09
PROVIDERS: Personal Emergency Response Attendant; Registered Nurse; Admitting Provider Family Medicine; Emergency Provider Emergency Medicine; Visit Provider Family Medicine
DX: A41.51 Sepsis due to Escherichia coli [E. coli] (principal); N10 Acute pyelonephritis; R06.03 Acute respiratory distress; I10 Essential (primary) hypertension; E83.42 Hypomagnesemia; E83.39 Other disorders of phosphorus metabolism; R65.20 Severe sepsis without septic shock; M54.9 Dorsalgia, unspecified; D69.6 Thrombocytopenia, unspecified; E11.9 Type 2 diabetes mellitus without complications; R16.0 Hepatomegaly, not elsewhere classified; E44.1 Mild protein-calorie malnutrition; Z68.38 Body mass index [BMI] 38.0-38.9, adult; F17.210 Nicotine dependence, cigarettes, uncomplicated; Z20.822 Contact with and (suspected) exposure to COVID-19; Z79.84 Long term (current) use of oral hypoglycemic drugs
CPT/HCPCS: 36415; 71045; 74176; 80048; 80053; 81001; 82948; 83605; 83690; 83735; 84100; 84484; 84703; 85025; 87040; 87086; 87150; 87186; 87804; 87811; 93005; 94761; 96365; 96366; 96367; 96368; 96372; 96375; 96376; 99285; G0378; J0696; J0744; J1650; J1885; J2270; J2405; J3475